=== PATIENT | female | born 1975 | race Two or more races ===

== ENCOUNTER 2017-03-07 13:38 | Emergency (ER) | payer SELFPAY ==
[~2017-03-07] VITALS: Ht 157.5 cm; Wt 104.3 kg
[2017-03-07 14:31] LABS: BASO # 0.1 x10^3/uL (0.0-0.2); BASO % 1 % (0-3); EOS % 2 % (0-3); HEMATOCRIT 39.6 % (36.0-47.0); HEMOGLOBIN 13.4 g/dL (12.0-15.5); LYMPH # 2.3 x10^3/uL (1.0-4.8); LYMPH % 22 % (24-48); MEAN CORPUSCULAR HEMOGLOBIN 29 pg (25-35); MEAN CORPUSCULAR HGB CONC 34 g/dL (31-37); MEAN CORPUSCULAR VOLUME 85 fL (79-100); MONO % 5 % (0-9); NEUT % 70 % (31-73); PLATELET COUNT 241 x10^3/uL (140-400); RED BLOOD COUNT 4.64 x10^6/uL (3.50-5.40); RED CELL DISTRIBUTION WIDTH 14.7 % (11.5-14.5); WHITE BLOOD COUNT 10.5 x10^3/uL (4.0-11.0)
[2017-03-07 14:31] LABS: BILIRUBIN,URINE NEGATIVE (NEG); GLUCOSE,URINE NEGATIVE (NEG); NITRITE,URINE NEGATIVE (NEG); PH,URINE 6.5; PROTEIN,URINE NEGATIVE (NEG-TRACE)
--- NOTE | 2017-03-07 14:38 | ED.ADGEN ---
Past Medical History Past Medical History: No Pertinent History Past Surgical History: Alcohol Use: None Drug Use: None Adult General Chief Complaint Chief Complaint: ABDOMINAL PAIN IN HPI HPI Patient is a 41 year old [id number]-[id number] G4, P3 female with estimated 16 weeks' gestation who presents with right lower quadrant pain and vaginal bleeding for the past 16 weeks. Patient denies dizziness lightheadedness , chest pain and shortness of breath. Denies passage of tissue. Patient's last menstrual period was 11/02/16. Patient has not yet established with OB be service. Patient denies complication of prior pregnancies. [place]ian phone oreman assist with a history of this patient. Review of Systems Review of Systems Review symptoms as prescribed. All other review symptoms are negative. Allergies Allergies Allergies Coded Allergies Type Severity Reaction Last Updated Verified No Known Drug Allergies 02/18/16 No Physical Exam Physical Exam Constitutional: Well developed, well nourished, no acute distress, non-toxic appearance. [] HENT: Normocephalic, atraumatic, bilateral external ears normal, oropharynx moist, no oral exudates, nose normal. [] Eyes: PERRLA, EOMI, conjunctiva normal, no discharge. [] Neck: Normal range of motion, no tenderness, supple, no stridor. [] Cardiovascular:Heart rate regular rhythm, no murmur [] Lungs & Thorax: Bilateral breath sounds clear to auscultation [] Abdomen: Bowel sounds normal, soft, , right lower quadrant pain tenderness, no rebound rigidity or guarding [] : Dark red blood in vaginal vault. No lacerations or lesions present. Small amount of blood and mucus coming from cervical os which is closed. No vaginal discharge appreciated. [] Back: No tenderness, no CVA tenderness. [] Extremities: No tenderness, no cyanosis, no clubbing, ROM intact, no edema. [] Psychologic: Affect normal, judgement normal, mood normal. [] Current Patient Data Vital Signs Vital Signs Date Time Temp Pulse Resp B/P (MAP) Pulse Ox O2 Delivery O2 Flow Rate FiO2 03/07/17 16:20 63 18 124/71 (88) 98 Room Air 03/07/17 13:50 98.3 98.3 Lab Values Laboratory Tests Test 03/07/17 13:48 03/07/17 14:19 Urine Collection Type Void Urine Color Red Urine Clarity Cloudy Urine pH 6.5 Urine Specific [place] 1.015 Urine Protein Negative mg/dL (NEG-TRACE) Urine Glucose (UA) Negative mg/dL (NEG) Urine Ketones (Stick) Negative mg/dL (NEG) Urine Blood Large (NEG) Urine Nitrite Negative (NEG) Urine Bilirubin Negative (NEG) Urine Urobilinogen Dipstick 1.0 mg/dL (0.2 mg/dL) Urine Leukocyte Esterase Trace (NEG) Urine RBC Tntc /HPF (0-2) Urine WBC 5-10 /HPF (0-4) Urine Squamous Epithelial Cells Few /LPF Urine Bacteria Few /HPF (0-FEW) Urine Mucus Mod /LPF White Blood Count 10.5 x10^3/uL (4.0-11.0) Red Blood Count 4.64 x10^6/uL (3.50-5.40) Hemoglobin 13.4 g/dL (12.0-15.5) Hematocrit 39.6 % (36.0-47.0) Mean Corpuscular Volume 85 fL (79-100) Mean Corpuscular Hemoglobin 29 pg (25-35) Mean Corpuscular Hemoglobin Concent 34 g/dL (31-37) Red Cell Distribution Width 14.7 % (11.5-14.5) H Platelet Count 241 x10^3/uL (140-400) Neutrophils (%) (Auto) 70 % (31-73) Lymphocytes (%) (Auto) 22 % (24-48) L Monocytes (%) (Auto) 5 % (0-9) Eosinophils (%) (Auto) 2 % (0-3) Basophils (%) (Auto) 1 % (0-3) Neutrophils # (Auto) 7.3 x10^3uL (1.8-7.7) Lymphocytes # (Auto) 2.3 x10^3/uL (1.0-4.8) Monocytes # (Auto) 0.6 x10^3/uL (0.0-1.1) Eosinophils # (Auto) 0.2 x10^3/uL (0.0-0.7) Basophils # (Auto) 0.1 x10^3/uL (0.0-0.2) Maternal Serum HCG Beta Subunit 6648 mIU/mL (0-5) H Laboratory Tests 03/07/17 14:19 EKG EKG [] Radiology/Procedures Radiology/Procedures [OB ultrasound: 6 week, 2 day intrauterine demise per radiology report] Course & Med Decision Making Course & Med Decision Making Pertinent Labs and Imaging studies reviewed. (See chart for details) [Patient with incomplete inevitable miscarriage. Office is closed with minimal blood in the vault. Patient's vital signs and H&H are stable. Patient's blood type is O+. Discussed with patient the importance of supportive care with close ECHO TECHNICIAN follow-up. Return precautions reviewed. All questions asked and answered through use of phone retail director.] Dragon Disclaimer Dragon Disclaimer This electronic medical record was generated, in whole or in part, using a voice recognition dictation system. BROWN URBINA DO Mar 07, 2017 14:38
[2017-03-07 14:39] LABS: BACTERIA,URINE FEW /HPF (0-FEW); RBC,URINE TNTC /HPF (0-2); SQUAMOUS EPITHELIAL CELL,UR FEW /LPF
--- NOTE | 2017-03-07 15:16 | RAD ---
Indication with vaginal bleeding. An early obstetrical ultrasound examination was performed. Initially transabdominal scans were obtained. These were supplemented with transvaginal scans. No prior imaging is available associated with this . An intrauterine gestational sac is seen. There is a pole. [place]-rump length of 0.56 cm is compatible with a gestational age of approximately 6 weeks 2 days. Despite prolonged observation no cardiac activity was identified. The findings are compatible with demise. The right ovary appears normal. Left ovary was not seen. IMPRESSION: demise
[2017-03-07 16:20] VITALS: BP 124/71
== END 2017-03-07 16:20 | disposition home or self-care (01) ==
LOC: ER 13:38
DX: O03.4 Incomplete spontaneous abortion without complication (principal); Z3A.16 16 weeks gestation of pregnancy
CPT/HCPCS: 36415; 76801; 76817; 81001; 84702; 85027; 87086; 99285-25

== ENCOUNTER 2018-06-20 20:27 | Emergency (ER) | payer SELFPAY ==
[~2018-06-20] VITALS: Ht 152.4 cm; Wt 105.2 kg
[2018-06-20 21:15] VITALS: BP 181/94
--- NOTE | 2018-06-20 22:29 | RAD ---
Indication:Right middle finger caught in rotary surface grinder TECHNIQUE: 3 views of right hand COMPARISON: None FINDINGS/ impression: Mildly displaced transverse Fracture is seen of the tuft of the third finger with soft tissue laceration. No extension to the DIP joint. No radiopaque foreign body. Electronically signed by: Clive Thomas DO (06/20/2018 10:25 PM) [facility]
[2018-06-20] MEDS ORDERED: HYDROcodone/APAP 5/325MG 1 TAB TABLET PO ONE (22:30)
[2018-06-20] MEDS ORDERED: DIPHTH,PERTUSS(ACELL),TET TOX 0.5 ML DISP.SYRIN. VAX IM ONE (22:30)
[2018-06-20] MEDS ORDERED: HYDR-3164 PO (23:18)
[2018-06-20] MEDS ORDERED: CEPH-264 PO (23:18)
--- NOTE | 2018-06-20 23:19 | PHYS DOC ---
Past Medical History Past Medical History: No Pertinent History Past Surgical History: Alcohol Use: None Drug Use: None Adult General Chief Complaint Chief Complaint: FINGER INJURY HPI HPI Patient is a 42 year old female who presents with was using a computer numerical control grinder in her right middle finger got stuck in it at 2000 tonight. Patient states she does need a tetanus shot. She is allergic to ibuprofen. Past medical history is depression and she cannot remember what medication she is taking for her. Review of Systems Review of Systems Constitutional: Denies fever or chills [] Eyes: Denies change in visual acuity, redness, or eye pain [] HENT: Denies nasal congestion or sore throat [] Respiratory: Denies cough or shortness of breath [] Cardiovascular: No additional information not addressed in HPI [] GI: Denies abdominal pain, nausea, vomiting, bloody stools or diarrhea [] : Denies dysuria or hematuria [] Musculoskeletal: Denies back pain or joint pain [] Integument: Denies rash or skin lesions [] Neurologic: Denies headache, focal weakness or sensory changes [] Endocrine: Denies polyuria or polydipsia [] All other systems were reviewed and found to be within normal limits, except as documented in this note. Current Medications Current Medications Current Medications Medications (Trade) Dose Ordered Sig/Wei Start Time Stop Time Status Last Admin Dose Admin Acetaminophen/ Hydrocodone Bitart (Lortab 5/325) 1 tab 1X ONCE 06/20/18 22:30 06/20/18 22:31 DC 06/20/18 22:59 1 TAB Diphtheria/ Tetanus/Acell Pertussis (Boostrix) 0.5 ml ONCE ONCE 06/20/18 22:30 06/20/18 22:31 DC 06/20/18 23:00 0.5 ML Lidocaine/Sodium Bicarbonate (Buffered Lidocaine 1%) 6 ml 1X ONCE 06/20/18 23:45 06/20/18 23:46 DC 06/20/18 23:45 6 ML Allergies Allergies Allergies Coded Allergies Type Severity Reaction Last Updated Verified ibuprofen Allergy Intermediate 06/20/18 Yes Physical Exam Physical Exam Constitutional: Well developed, well nourished, no acute distress, non-toxic appearance. [] HENT: Normocephalic, atraumatic, bilateral external ears normal, oropharynx moist, no oral exudates, nose normal. [] Eyes: PERRLA, EOMI, conjunctiva normal, no discharge. [] Neck: Normal range of motion, no tenderness, supple, no stridor. [] Cardiovascular:Heart rate regular rhythm, no murmur [] Lungs & Thorax: Bilateral breath sounds clear to auscultation [] Abdomen: Bowel sounds normal, soft, no tenderness, no masses, no pulsatile masses. [] Skin: Warm, dry, no erythema, no rash. [] Back: No tenderness, no CVA tenderness. [] Extremities: No tenderness, no cyanosis, no clubbing, ROM intact, no edema. [] Neurologic: Alert and oriented X 3, normal motor function, normal sensory function, no focal deficits noted. [] Psychologic: Affect normal, judgement normal, mood normal. [] Current Patient Data Vital Signs Vital Signs Date Time Temp Pulse Resp B/P (MAP) Pulse Ox O2 Delivery O2 Flow Rate FiO2 06/20/18 21:15 98.3 74 17 181/94 (123) 96 Room Air 98.3 EKG EKG [] Radiology/Procedures Radiology/Procedures [] Impressions: [facility] [address] [place] [address] IMAGING REPORT Signed PATIENT: KELLY RAMOS ACCOUNT: [id number] : 1975 LOCATION: ER AGE: 42 SEX: F EXAM STATUS: REG ER ORD. PHYSICIAN: STAR CANNON APRN REASON: Right middle finger caught in computer numerical control grinder PROCEDURE: HAND RIGHT 3V Indication:Right middle finger caught in computer numerical control grinder TECHNIQUE: 3 views of right hand COMPARISON: None FINDINGS/ impression: Mildly displaced transverse Fracture is seen of the tuft of the third finger with soft tissue laceration. No extension to the DIP joint. No radiopaque foreign body. Electronically signed by: Clive Thomas DO (06/20/2018 10:25 PM) [facility] DICTATED and SIGNED BY: CLIVE THOMAS DO DATE: 06/20/182216 Course & Med Decision Making Course & Med Decision Making Patient is a 42 year old female who presents with was using a computer numerical control grinder in her right middle finger got stuck in it at 2000 tonight. Patient states she does need a tetanus shot. She is allergic to ibuprofen. Past medical history is depression and she cannot remember what medication she is taking for her. Twila fingertip is lacerated from all around the top except for the posterior side of the finger. Half the nail is missing. Patient cannot bend at finger tip. Patient is given a Boostrix shot in the ED. Radial pulses present and strong. The color the finger is normal for ethnicity. Patient still has feeling in the finger of which is pain and she rates it at a 9 out of 10. Patient's x- ray shows impression: Mildly displaced transverse Fracture is seen of the tuft of the third finger with soft tissue laceration. No extension to the DIP joint. No radiopaque foreign body. She will be given Keflex and iodic and I will so of her laceration after cleaning it copiously with Betadine and normal saline. The nail was pushed back down into nail bed. She will need to follow-up with orthopedics as soon as possible. The finger will also be splinted. Laceration Repair by me: Anesthesia: 1% lidocaine locally Location: Left middle finger tip Tendon/Joint/Nerves: No injury Foreign body: None detected after copious irrigation and exploration Technique: 7 Simple Interrupted Sutures Complexity: No subcutaneous sutures/mucosal repair/edge excision Post Closure Length: 3 cm Patient's bleeding was easily controlled in the department and there is no indication of anemia. No evidence of compartment syndrome, neurologic injury, vascular injury, open joint, tendon laceration, or foreign body. Patient is appropriate for outpatient follow up. 48 hour wound check. Scar minimization instructions given. [] Dragon Disclaimer Dragon Disclaimer This electronic medical record was generated, in whole or in part, using a voice recognition dictation system. Departure Departure Impression: Primary Impression: Laceration Additional Impression: Open fracture of tuft of distal phalanx of finger Disposition: HOME, SELF-CARE Condition: STABLE Referrals: UNKNOWN PCP NAME (PCP) JONEL PRO MD Patient Instructions: Laceration Care, Adult Additional Instructions: Follow-up with orthopedics next week. Take medications as ordered. Scripts Cephalexin (KEFLEX) 500 Mg Capsule 500 MG PO QID for 10 Days, #40 CAP Prov: STAR CANNON ALMOND BLANCHER OPERATOR 06/20/18 Hydrocodone/Apap 5-325 (NORCO 5-325 TABLET) 1 Each Tablet 1 TAB PO PRN Q6HRS PRN for PAIN, #15 TAB 0 Refills Prov: STAR CANNON APRN 06/20/18 Problem Qualifiers STAR CANNON APRN Jun 20, 2018 23:19
[2018-06-20] MEDS ORDERED: LIDOCAINE WITH 8.4% SOD BICARB 3 ML DISP.SYRIN. INJ ONE (23:45)
== END 2018-06-21 00:52 | disposition home or self-care (01) ==
LOC: ER 20:27
DX: S62.632B Displaced fracture of distal phalanx of right middle finger, initial encounter for open fracture (principal); F32.9 Major depressive disorder, single episode, unspecified; Z98.890 Other specified postprocedural states; Z88.6 Allergy status to analgesic agent; W22.8XXA Striking against or struck by other objects, initial encounter; Y93.89 Activity, other specified; Y92.89 Other specified places as the place of occurrence of the external cause; Y99.8 Other external cause status
CPT/HCPCS: 12002; 29130; 73130; 90471; 90715; 99283

== ENCOUNTER 2018-06-30 11:52 | Emergency (ER) | payer SELFPAY ==
[~2018-06-30] VITALS: Ht 152.4 cm; Wt 105.2 kg
[~2018-06-30 11:52] MED LIST: CEPH-264 PO; HYDR-3164 PO
[2018-06-30 11:55] VITALS: BP 144/78
--- NOTE | 2018-06-30 12:17 | PHYS DOC ---
Past Medical History Past Medical History: No Pertinent History Past Surgical History: Alcohol Use: None Drug Use: None Adult General Chief Complaint Chief Complaint: SUTURE/STAPLE REMOVAL [facility] HPI Patient is a 42 year old female who presents with patient had a right middle finger laceration repair On June 20, 2018. She is here to get the stitches removed. Patient states that she has very little pain and that there is never been any signs of infection. Patient states she can bend the finger without pain. Review of Systems Review of Systems Constitutional: Denies fever or chills [] Eyes: Denies change in visual acuity, redness, or eye pain [] HENT: Denies nasal congestion or sore throat [] Respiratory: Denies cough or shortness of breath [] Cardiovascular: No additional information not addressed in HPI [] GI: Denies abdominal pain, nausea, vomiting, bloody stools or diarrhea [] : Denies dysuria or hematuria [] Musculoskeletal: Denies back pain or joint pain [] Integument: Right middle finger suture removal. Denies rash or skin lesions [] Neurologic: Denies headache, focal weakness or sensory changes [] Endocrine: Denies polyuria or polydipsia [] All other systems were reviewed and found to be within normal limits, except as documented in this note. Allergies Allergies Allergies Coded Allergies Type Severity Reaction Last Updated Verified ibuprofen Allergy Intermediate 06/20/18 Yes Physical Exam Physical Exam Constitutional: Well developed, well nourished, no acute distress, non-toxic appearance. [] HENT: Normocephalic, atraumatic, bilateral external ears normal, oropharynx moist, no oral exudates, nose normal. [] Eyes: PERRLA, EOMI, conjunctiva normal, no discharge. [] Neck: Normal range of motion, no tenderness, supple, no stridor. [] Cardiovascular:Heart rate regular rhythm, no murmur [] Lungs & Thorax: Bilateral breath sounds clear to auscultation [] Abdomen: Bowel sounds normal, soft, no tenderness, no masses, no pulsatile masses. [] Skin:Right middle finger 7 suture removal. Warm, dry, no erythema, no rash. [] Back: No tenderness, no CVA tenderness. [] Extremities: No tenderness, no cyanosis, no clubbing, ROM intact, no edema. [] Neurologic: Alert and oriented X 3, normal motor function, normal sensory function, no focal deficits noted. [] Psychologic: Affect normal, judgement normal, mood normal. [] EKG EKG [] Radiology/Procedures Radiology/Procedures [] Course & Med Decision Making Course & Med Decision Making Patient is a 42 year old female who presents with patient had a right middle finger laceration repair June 20, 2018. She is here to get the stitches removed. Patient states that she has very little pain and that there is never been any signs of infection. Patient states she can bend the finger without pain. Finger is not swollen, reddened, has no drainage. 7 Stitches are removed and wound is well-healed and edges are approximated and healed together. I did tell patient that she may still lose her nail because the nailbed was damaged. patient to continue using ibuprofen for pain. She is stable and in no distress. [] Dragon Disclaimer Dragon Disclaimer This electronic medical record was generated, in whole or in part, using a voice recognition dictation system. Departure Departure Impression: Primary Impression: Visit for suture removal Disposition: HOME, SELF-CARE Condition: STABLE Referrals: UNKNOWN PCP NAME (PCP) Patient Instructions: Suture Removal Additional Instructions: Follow up with your primary care if you need too. Use ibuprofen for any pain or discomfort. STAR CANNON APRN Jun 30, 2018 12:17
== END 2018-06-30 12:42 | disposition home or self-care (01) ==
LOC: ER 11:52
DX: S61.212D Laceration without foreign body of right middle finger without damage to nail, subsequent encounter (principal); Z98.890 Other specified postprocedural states; Z88.6 Allergy status to analgesic agent; X58.XXXD Exposure to other specified factors, subsequent encounter
CPT/HCPCS: 99281

== ENCOUNTER 2020-01-21 16:15 | Inpatient (IN) | payer OTHER ==
[~2020-01-21] VITALS: Ht 154.9 cm; Wt 98.6 kg
[2020-01-21 16:30] LABS: BASE EXCESS ABG 5 mmol/L (-3-3); HCO3 ABG 28 mmol/L (21-28); PCO2 ABG 37 mmHg (35-46); PO2 ABG 68 mmHg (75-108); SAT O2 ABG 93 % (92-99)
[2020-01-21 16:32] LABS: FIO2 ABG 100% NRB
[2020-01-21] MEDS ORDERED: ACETAMINOPHEN 500 MG TABLET PO ONE (17:00)
[2020-01-21 17:09] LABS: BASO % 0 % (0-3); EOS % 0 % (0-3); HEMOGLOBIN 11.6 g/dL (12.0-15.5); LYMPH # 0.9 x10^3/uL (1.0-4.8); LYMPH % 10 % (24-48); MEAN CORPUSCULAR HEMOGLOBIN 28 pg (25-35); MEAN CORPUSCULAR HGB CONC 34 g/dL (31-37); MEAN CORPUSCULAR VOLUME 82 fL (79-100); MONO # 0.5 x10^3/uL (0.0-1.1); MONO % 6 % (0-9); NEUT # 7.1 x10^3/uL (1.8-7.7); NEUT % 84 % (31-73); PLATELET COUNT 378 x10^3/uL (140-400); RED BLOOD COUNT 4.15 x10^6/uL (3.50-5.40); RED CELL DISTRIBUTION WIDTH 15.2 % (11.5-14.5); WHITE BLOOD COUNT 8.5 x10^3/uL (4.0-11.0)
[2020-01-21 17:17] LABS: CALCIUM 7.8 mg/dL (8.5-10.1); CREATININE 0.7 mg/dL (0.6-1.0); GFR 90.9; POTASSIUM 3.8 mmol/L (3.5-5.1)
[2020-01-21 17:32] LABS: ALBUMIN 2.5 g/dL (3.4-5.0); ALBUMIN/GLOBULIN RATIO 0.5 (1.0-1.7); TOTAL BILIRUBIN 0.4 mg/dL (0.2-1.0); TOTAL PROTEIN 7.1 g/dL (6.4-8.2)
--- NOTE | 2020-01-21 17:33 | RAD ---
CHEST AP ONLY 01/21/2020 4:46 PM INDICATION: Cough COMPARISON: None available TECHNIQUE: Portable frontal view of the chest is provided. FINDINGS: The cardiomediastinal silhouette is within normal limits. Moderate to advanced perihilar mixed interstitial and alveolar airspace disease. Small bilateral pleural effusions adjacent compressive atelectasis. No pneumothorax. No suspicious osseous abnormality. IMPRESSION: Moderate to advanced perihilar mixed interstitial and alveolar airspace disease may be associated with pulmonary edema/hemorrhage versus multifocal pulmonary infiltrates. Recommend follow-up to resolution. Electronically signed by: Thu Cabello MD (01/21/2020 5:31 PM) [facility]
--- NOTE | 2020-01-21 17:48 | PHYS DOC ---
Past Medical History Past Medical History: Hypertension Additional Past Medical Histor: COVID Past Surgical History: Smoking Status: Never Smoker Alcohol Use: None Drug Use: None General Adult EDM: Chief Complaint: SHORTNESS OF BREATH HPI: HPI: Patient is a 44-year-old morbidly obese female with no other obvious underlying medical conditions was recently diagnosed with COVID. She states that she has become progressively more short of breath since the time of diagnosis. She denies any hemoptysis. She does report fever. She states she does have some pain when she coughs. She has been coughing up sputum. She has other people in her house that are positive for COVID. She called EMS today because she was much more short of breath and on EMS arrival they report that her oxygen saturation was in the 60s. This responded to a nonrebreather in route to the mid s. [] Review of Systems: Review of Systems: Constitutional: Denies fever or chills. [] Eyes: Denies change in visual acuity. [] HENT: Denies nasal congestion or sore throat. [] Respiratory: Per HPI [] Cardiovascular: Denies chest pain or edema. [] GI: Denies abdominal pain, nausea, vomiting, bloody stools or diarrhea. [] : Denies dysuria. [] Musculoskeletal: Denies back pain or joint pain. [] Integument: Denies rash. [] Neurologic: Denies headache, focal weakness or sensory changes. [] Endocrine: Denies polyuria or polydipsia. [] Lymphatic: Denies swollen glands. [] Psychiatric: Denies depression or anxiety. [] Heart Score: Risk Factors: Risk Factors: DM, Current or recent (<one month) smoker, HTN, HLP, family history of CAD, obesity. Risk Scores: Score 0 - 3: 2.5% MACE over next 6 weeks - Discharge Home Score 4 - 6: 20.3% MACE over next 6 weeks - Admit for Clinical Observation Score 7 - 10: 72.7% MACE over next 6 weeks - Early Invasive Strategies Current Medications: Current Medications Medications (Trade) Dose Ordered Sig/Wei Start Time Stop Time Status Last Admin Dose Admin Acetaminophen (Tylenol) 1,000 mg 1X ONCE 01/21/20 17:00 01/21/20 17:01 DC 01/21/20 17:00 1,000 MG Allergies: Allergies: Allergies Coded Allergies Type Severity Reaction Last Updated Verified ibuprofen Allergy Intermediate 06/20/18 Yes Physical Exam: PE: Constitutional: Well developed, well nourished, moderate respiratory distress, resting quietly with a nonrebreather in place. [] HENT: Normocephalic, atraumatic, bilateral external ears normal, oropharynx moist, no oral exudates, nose normal. [] Eyes: PERRLA, EOMI, conjunctiva normal, no discharge. [] Neck: Normal range of motion, no tenderness, supple, no stridor. [] Cardiovascular: Tachycardic [] Lungs & Thorax: Coarse rales bilaterally no wheezes, tachypneic [] Abdomen: Bowel sounds normal, soft, no tenderness, no masses, no pulsatile masses. [] Skin: Warm, dry, no erythema, no rash. [] Back: No tenderness, no CVA tenderness. [] Extremities: No tenderness, no cyanosis, no clubbing, ROM intact, no edema. [] Neurologic: Alert and oriented X 3, normal motor function, normal sensory function, no focal deficits noted. [] Psychologic: A anxious [] Current Patient Data: Labs: Laboratory Tests Test 01/21/20 16:27 01/21/20 16:36 O2 Saturation 93 % (92-99) Arterial Blood pH 7.50 (7.35-7.45) H Arterial Blood pCO2 at Patient Temp 37 mmHg (35-46) Arterial Blood pO2 at Patient Temp 68 mmHg (75-108) L Arterial Blood HCO3 28 mmol/L (21-28) Arterial Blood Base Excess 5 mmol/L (-3-3) H FiO2 100% nrb White Blood Count 8.5 x10^3/uL (4.0-11.0) Red Blood Count 4.15 x10^6/uL (3.50-5.40) Hemoglobin 11.6 g/dL (12.0-15.5) L Hematocrit 34.0 % (36.0-47.0) L Mean Corpuscular Volume 82 fL (79-100) Mean Corpuscular Hemoglobin 28 pg (25-35) Mean Corpuscular Hemoglobin Concent 34 g/dL (31-37) Red Cell Distribution Width 15.2 % (11.5-14.5) H Platelet Count 378 x10^3/uL (140-400) Neutrophils (%) (Auto) 84 % (31-73) H Lymphocytes (%) (Auto) 10 % (24-48) L Monocytes (%) (Auto) 6 % (0-9) Eosinophils (%) (Auto) 0 % (0-3) Basophils (%) (Auto) 0 % (0-3) Neutrophils # (Auto) 7.1 x10^3/uL (1.8-7.7) Lymphocytes # (Auto) 0.9 x10^3/uL (1.0-4.8) L Monocytes # (Auto) 0.5 x10^3/uL (0.0-1.1) Eosinophils # (Auto) 0.0 x10^3/uL (0.0-0.7) Basophils # (Auto) 0.0 x10^3/uL (0.0-0.2) Sodium Level 135 mmol/L (136-145) L Potassium Level 3.8 mmol/L (3.5-5.1) Chloride Level 98 mmol/L (98-107) Carbon Dioxide Level 29 mmol/L (21-32) Anion Gap 8 (6-14) Blood Urea Nitrogen 9 mg/dL (7-20) Creatinine 0.7 mg/dL (0.6-1.0) Estimated GFR (Cockcroft-Gault) 90.9 BUN/Creatinine Ratio 13 (6-20) Glucose Level 96 mg/dL (70-99) Calcium Level 7.8 mg/dL (8.5-10.1) L Total Bilirubin 0.4 mg/dL (0.2-1.0) Aspartate Amino Transferase (AST) 42 U/L (15-37) H Alanine Aminotransferase (ALT) 20 U/L (14-59) Alkaline Phosphatase 76 U/L (46-116) Total Protein 7.1 g/dL (6.4-8.2) Albumin 2.5 g/dL (3.4-5.0) L Albumin/Globulin Ratio 0.5 (1.0-1.7) L Laboratory Tests 01/21/20 16:36 Laboratory Tests 01/21/20 16:36 Vital Signs: Vital Signs Date Time Temp Pulse Resp B/P (MAP) Pulse Ox O2 Delivery O2 Flow Rate FiO2 01/21/20 16:20 100.2 85 28 124/66 (85) 96 NonRebreather Mask 100.2 EKG: EKG: [EKG: Normal sinus rhythm rate of [address]-T changes] Radiology/Procedures: Radiology/Procedures: [] Impression: PROCEDURE: CHEST AP ONLY CHEST AP ONLY 01/21/2020 4:46 PM INDICATION: Cough COMPARISON: None available TECHNIQUE: Portable frontal view of the chest is provided. FINDINGS: The cardiomediastinal silhouette is within normal limits. Moderate to advanced perihilar mixed interstitial and alveolar airspace disease. Small bilateral pleural effusions adjacent compressive atelectasis. No pneumothorax. No suspicious osseous abnormality. IMPRESSION: Moderate to advanced perihilar mixed interstitial and alveolar airspace disease may be associated with pulmonary edema/hemorrhage versus multifocal pulmonary infiltrates. Recommend follow-up to resolution. Course & Med Decision Making: Course & Med Decision Making Pertinent Labs and Imaging studies reviewed. (See chart for details) [ED course: Evaluation reveals a known COVID +44-year-old obese female who is hypoxic and coughing. She is responded well to high flow oxygen in the emergency department. She will need to be closely monitored in the hospital for resolution of her symptoms.] Dragon Disclaimer: Dragon Disclaimer: This electronic medical record was generated, in whole or in part, using a voice recognition dictation system. Departure Departure Impression: Primary Impression: Pneumonia due to COVID-19 virus Disposition: ADMITTED INPATIENT Admitting Physician: BERNABE Condition: GUARDED Referrals: NO PCP (PCP) Justicifation of Admission Dx: Justifications for Admission: Justification of Admission Dx: Yes Respiratory Failure: Severe Resp Distress STAR RAUSCH DO Jan 21, 2020 17:48
[2020-01-21] MEDS ORDERED: ONDANSETRON PF 4 MG/2 ML VIAL. IV PRN (18:00)
[2020-01-21] MEDS ORDERED: cefTRIAXone IV Push 1 GM VIAL. IVP ONE (18:00)
[2020-01-21] MEDS ORDERED: DEXAMETHASONE SOD PHOS 4 MG/ML VIAL IVP ONE (18:00)
[2020-01-21] MEDS: AZITHROMYCIN 500 MG in IV NORMAL SALINE 250ML 250 ML IV SCH (18:15)
[2020-01-21] MEDS ORDERED: AZITHRMYCN 500MG IVPB FOR OMNI 250 ML IV ONE ×2 (18:15→19:45)
[2020-01-21] MEDS ORDERED: 0.9 % SODIUM CHLORIDE 10 ML DISP.SYRIN. IV PRN (19:45)
[2020-01-21] MEDS ORDERED: MAGNESIUM HYDROXIDE 2,400 MG/30 ML ORAL.SUSP. PO PRN (19:45)
[2020-01-21] MEDS ORDERED: MAG HYDROX/ALUMINUM HYD/SIMETH 30 ML ORAL.SUSP PO PRN (19:45)
[2020-01-21] MEDS ORDERED: ONDANSETRON PF 4 MG/2 ML VIAL. IVP PRN (19:45)
[2020-01-21] MEDS ORDERED: ENOXAPARIN 40 MG/0.4 ML SYRINGE. SQ SCH (20:00)
[2020-01-21 20:34] LABS: C-REACTIVE PROTEIN 101.3 mg/L (0-3.3)
--- NOTE | 2020-01-21 20:53 | PDOC1 ---
History and Physical Date of Admission Date of Admission DATE: 01/21/20 TIME: 20:41 Identification/Chief Complaint Chief Complaint sob, cough, fever Problems: (1) Respiratory failure (2) COVID-19 Source Source: Chart review, Patient History of Present Illness History of Present Illness 44-year-old speaking female with PMHx of obesity, HTN who presents with 10 days of cough sob and fever. Tested for covid at outside facility and + along with her two kids, 8 and 3. She became progressively more SOB over the past several days. She called EMS bc of her difficulty breathing. EMS arrived and found her saturations to be 60%. she was placed on a non-rebreather and sent to [facility]. Patient feels better on non-rebreather. speaking full sentences. denies chest pain. still sob. has no other complaints. in the ED patient's chest xray shows: Moderate to advanced perihilar mixed interstitial and alveolar airspace disease may be associated with pulmonary edema/hemorrhage versus multifocal pulmonary infiltrates. Recommend follow-up to resolution. Hospitalist called for admission Past Medical History Past Medical History HTN, obesity Past Surgical History Past Surgical History denies Family History Family History reviewed and denies Social History Smoke: No ALCOHOL: none Drugs: None Current Problem List Problem List Problems Medical Problems: (1) Pneumonia due to COVID-19 virus Status: Acute Current Medications Current Medications Current Medications Acetaminophen (Tylenol) 1,000 mg 1X ONCE PO Last administered on 01/21/20at 17:00; Start 01/21/20 at 17:00; Stop 01/21/20 at 17:01; Status DC Ondansetron HCl (Zofran) 4 mg PRN Q8HRS PRN IV NAUSEA/VOMITING; Start 01/21/20 at 18:00; Stop 01/22/20 at 17:59 Dexamethasone Sodium Phosphate (Decadron) 6 mg 1X ONCE IVP Last administered on 01/21/20at 18:14; Start 01/21/20 at 18:00; Stop 01/21/20 at 18:01; Status DC Ceftriaxone Sodium (Rocephin) 1 gm 1X ONCE IVP Last administered on 01/21/20at 18:14; Start 01/21/20 at 18:00; Stop 01/21/20 at 18:01; Status DC Azithromycin 500 mg/Sodium Chloride 250 ml @ 250 mls/hr Q24H IV ; Start 01/22/20 at 19:00 Azithromycin 250 ml @ 250 mls/hr 1X ONCE IV Last administered on 01/21/20at 18:25; Start 01/21/20 at 18:15; Stop 01/21/20 at 19:14; Status DC Dexamethasone Sodium Phosphate (Decadron) 6 mg DAILY IVP ; Start 01/22/20 at 09:00 Ceftriaxone Sodium (Rocephin) 1 gm Q24H IVP ; Start 01/22/20 at 20:00 Azithromycin 250 ml @ 250 mls/hr 1X ONCE IV ; Start 01/21/20 at 19:45; Stop 01/21/20 at 20:44; Status UNV Acetaminophen (Tylenol) 650 mg PRN Q6HRS PRN PO Headaches, Temp > 101.5'; Start 01/21/20 at 19:45 Ondansetron HCl (Zofran) 4 mg PRN Q6HRS PRN IVP NAUSEA/VOMITING; Start 01/21/20 at 19:45 Al Hydroxide/Mg Hydroxide (Mylanta Plus Xs) 30 ml PRN Q3HRS PRN PO HEARTBURN / GAS; Start 01/21/20 at 19:45 Famotidine (Pepcid) 20 mg BID PO ; Start 01/21/20 at 21:00 Enoxaparin Sodium (Lovenox 40mg Syringe) 40 mg Q24H SQ ; Start 01/21/20 at 20:00 Sodium Chloride (Normal Saline Flush) 3 ml QSHIFT PRN IV AFTER MEDS AND BLOOD DRAWS; Start 01/21/20 at 19:45 Senna/Docusate Sodium (Senna Plus) 1 tab BID PO ; Start 01/21/20 at 21:00 Magnesium Hydroxide (Milk Of Magnesia) 2,400 mg PRN Q12HR PRN PO CONSTIPATION; Start 01/21/20 at 19:45 Active Scripts Active Keflex (Cephalexin) 500 Mg Capsule 500 Mg PO QID 10 Days [place] 5-325 Tablet (Acetaminophen/Hydrocodone Bitart) 1 Each Tablet 1 Tab PO PRN Q6HRS PRN Allergies Allergies: Coded Allergies: ibuprofen (Verified Allergy, Intermediate, 06/20/18) ROS Review of System CONSTITUTIONAL: No fever or chills EYES: No recent changes SKIN: No rash or itching CARDIOVASCULAR: No chest pain, syncope, palpitations, or edema RESPIRATORY: No SOB or cough GASTROINTESTINAL: No nausea, vomiting or abdominal pain NEUROLOGICAL: No headaches or weakness ENDOCRINE: No cold or heat intolerance GENITOURINARY: No urgency or frequency of urination MUSCULOSKELETAL: No back pain or joint pain LYMPHATICS: No enlarged lymph nodes PSYCHIATRIC: No anxiety or depression Physical Exam Physical Exam GENERAL: No apparent distress. Alert and oriented. HEENT: Head normocephalic, atraumatic. NECK: Supple LUNGS: Clear to auscultation. HEART: RRR, S1, S2 present, pulses intact ABDOMEN: Soft, positive bowel sounds. EXTREMITIES: No cyanosis or edema. NEUROLOGIC: Normal speech, normal tone PSYCHIATRIC: Normal affect, normal mood. SKIN: No ulceration. Vitals Vitals Vital Signs Date Time Temp Pulse Resp B/P (MAP) Pulse Ox O2 Delivery O2 Flow Rate FiO2 01/21/20 18:48 95 NonRebreather Mask 15.0 01/21/20 18:20 84 123/57 (79) 01/21/20 16:20 100.2 28 100.2 Labs Labs Laboratory Tests Test 01/21/20 16:27 01/21/20 16:36 O2 Saturation 93 % (92-99) Arterial Blood pH 7.50 (7.35-7.45) Arterial Blood pCO2 at Patient Temp 37 mmHg (35-46) Arterial Blood pO2 at Patient Temp 68 mmHg (75-108) Arterial Blood HCO3 28 mmol/L (21-28) Arterial Blood Base Excess 5 mmol/L (-3-3) FiO2 100% nrb White Blood Count 8.5 x10^3/uL (4.0-11.0) Red Blood Count 4.15 x10^6/uL (3.50-5.40) Hemoglobin 11.6 g/dL (12.0-15.5) Hematocrit 34.0 % (36.0-47.0) Mean Corpuscular Volume 82 fL (79-100) Mean Corpuscular Hemoglobin 28 pg (25-35) Mean Corpuscular Hemoglobin Concent 34 g/dL (31-37) Red Cell Distribution Width 15.2 % (11.5-14.5) Platelet Count 378 x10^3/uL (140-400) Neutrophils (%) (Auto) 84 % (31-73) Lymphocytes (%) (Auto) 10 % (24-48) Monocytes (%) (Auto) 6 % (0-9) Eosinophils (%) (Auto) 0 % (0-3) Basophils (%) (Auto) 0 % (0-3) Neutrophils # (Auto) 7.1 x10^3/uL (1.8-7.7) Lymphocytes # (Auto) 0.9 x10^3/uL (1.0-4.8) Monocytes # (Auto) 0.5 x10^3/uL (0.0-1.1) Eosinophils # (Auto) 0.0 x10^3/uL (0.0-0.7) Basophils # (Auto) 0.0 x10^3/uL (0.0-0.2) D-Dimer (Shirley) 2.09 ug/mlFEU (0.00-0.50) Sodium Level 135 mmol/L (136-145) Potassium Level 3.8 mmol/L (3.5-5.1) Chloride Level 98 mmol/L (98-107) Carbon Dioxide Level 29 mmol/L (21-32) Anion Gap 8 (6-14) Blood Urea Nitrogen 9 mg/dL (7-20) Creatinine 0.7 mg/dL (0.6-1.0) Estimated GFR (Cockcroft-Gault) 90.9 BUN/Creatinine Ratio 13 (6-20) Glucose Level 96 mg/dL (70-99) Calcium Level 7.8 mg/dL (8.5-10.1) Total Bilirubin 0.4 mg/dL (0.2-1.0) Aspartate Amino Transf (AST/SGOT) 42 U/L (15-37) Alanine Aminotransferase (ALT/SGPT) 20 U/L (14-59) Alkaline Phosphatase 76 U/L (46-116) Total Protein 7.1 g/dL (6.4-8.2) Albumin 2.5 g/dL (3.4-5.0) Albumin/Globulin Ratio 0.5 (1.0-1.7) Laboratory Tests Test 01/21/20 16:27 01/21/20 16:36 O2 Saturation 93 % (92-99) Arterial Blood pH 7.50 (7.35-7.45) Arterial Blood pCO2 at Patient Temp 37 mmHg (35-46) Arterial Blood pO2 at Patient Temp 68 mmHg (75-108) Arterial Blood HCO3 28 mmol/L (21-28) Arterial Blood Base Excess 5 mmol/L (-3-3) FiO2 100% nrb White Blood Count 8.5 x10^3/uL (4.0-11.0) Red Blood Count 4.15 x10^6/uL (3.50-5.40) Hemoglobin 11.6 g/dL (12.0-15.5) Hematocrit 34.0 % (36.0-47.0) Mean Corpuscular Volume 82 fL (79-100) Mean Corpuscular Hemoglobin 28 pg (25-35) Mean Corpuscular Hemoglobin Concent 34 g/dL (31-37) Red Cell Distribution Width 15.2 % (11.5-14.5) Platelet Count 378 x10^3/uL (140-400) Neutrophils (%) (Auto) 84 % (31-73) Lymphocytes (%) (Auto) 10 % (24-48) Monocytes (%) (Auto) 6 % (0-9) Eosinophils (%) (Auto) 0 % (0-3) Basophils (%) (Auto) 0 % (0-3) Neutrophils # (Auto) 7.1 x10^3/uL (1.8-7.7) Lymphocytes # (Auto) 0.9 x10^3/uL (1.0-4.8) Monocytes # (Auto) 0.5 x10^3/uL (0.0-1.1) Eosinophils # (Auto) 0.0 x10^3/uL (0.0-0.7) Basophils # (Auto) 0.0 x10^3/uL (0.0-0.2) D-Dimer (Shirley) 2.09 ug/mlFEU (0.00-0.50) Sodium Level 135 mmol/L (136-145) Potassium Level 3.8 mmol/L (3.5-5.1) Chloride Level 98 mmol/L (98-107) Carbon Dioxide Level 29 mmol/L (21-32) Anion Gap 8 (6-14) Blood Urea Nitrogen 9 mg/dL (7-20) Creatinine 0.7 mg/dL (0.6-1.0) Estimated GFR (Cockcroft-Gault) 90.9 BUN/Creatinine Ratio 13 (6-20) Glucose Level 96 mg/dL (70-99) Calcium Level 7.8 mg/dL (8.5-10.1) Total Bilirubin 0.4 mg/dL (0.2-1.0) Aspartate Amino Transf (AST/SGOT) 42 U/L (15-37) Alanine Aminotransferase (ALT/SGPT) 20 U/L (14-59) Alkaline Phosphatase 76 U/L (46-116) Total Protein 7.1 g/dL (6.4-8.2) Albumin 2.5 g/dL (3.4-5.0) Albumin/Globulin Ratio 0.5 (1.0-1.7) VTE Prophylaxis Ordered VTE Prophylaxis Devices: Yes VTE Pharmacological Prophylaxi: Yes Assessment/Plan Assessment/Plan ASSESSMENT Acute Hypoxic Respiratory Failure Secondary to COVID-PNA Morbid Obesity HTN PLAN - admit to ICU given hypoxic resp failure on non-rebreather - check inflammatory markers: ESR, CRP, ferratin, LDH, d dimer - start dexamethasone 6 mg IV daily - continue azithro and Rocephin - ID consult for plasma and remdesevir considerations - pulm consult given hypoxia - dvt ppx: lovenox - GI ppx: pepcid FULL CODE monitor in ICU given hypoxia LOS greater than 2 midnights given resp failure, COVID PNA Justicifation of Admission Dx: Justifications for Admission: Justification of Admission Dx: Yes Respiratory Failure: Severe Resp Distress THOR BACK MD Jan 21, 2020 20:53
[2020-01-21 21:30] VITALS: BP 124/59
[2020-01-21 22:00] VITALS: BP 131/61
[2020-01-21] MEDS: SENNOSIDES/DOCUSATE 8.6/50MG TABLET. PO SCH (22:49)
[2020-01-21] MEDS: FAMOTIDINE 20 MG TABLET. PO SCH (22:50)
[2020-01-21 23:00] VITALS: BP 121/52
[2020-01-22] VITALS (25 sets, daily range): BP systolic 104–129; BP diastolic 45–78
--- NOTE | 2020-01-22 01:53 | NUR ---
Pt transported from ED to ICU room 115 @ 2110 on COVID isolation precautions. Pt on 15L NRB and tolerating well with sats in 90-94% with it on and 88% on RA. Pt is able to ambulate with steady gait to and from bedside commode. Assessment as charted. Pt is primary yoruba speaker with minimal south african. Property Management Assistant phone in room if needed for translation. 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 She is given the pt welcome folder. Inpatient admission started and mostly completed. Pt is poor historian. She is call light appropriate. Continue with plan of care Addendum: 01/22/20 at 0430 by JAD GREENFIELD RN around 0405 pt's 02 sats dropped to low 80s despite being on 15 NRB. RN enters room and finding patient gasping for air and hyperventilating. After some coaching to take deep breaths and holding the mask directly on her face, her sats returned to 90-93s. RT paged and pt placed on High Flow Vapotherm @ 20Ls at 100% Addendum: 01/22/20 [address] GREEN RN RT needed to turn Vapotherm to 30L at 100% Addendum: 01/22/20 at 0639 by JAD GREENFIELD RN despite vapotherm turned up to 40L/100%, pt increased work of breathing. Stat ABG order placed. pt sating in 90-91% currently
[2020-01-22] MEDS: STERILE WATER for RESP 1,000 ML BAG. INH PRN ×2 (04:28→11:33)
--- NOTE | 2020-01-22 05:24 | EKG ---
[facility] [address] [place] [address] Test Date: 2020-01-21 Test Time: 16:23:56 Pat Name: KELLY RAMOSDepartment: Room: 115 Gender: F Head Of Conservation: : 1975 Requested By: STAR RAUSCH Order Number: [id number] Reading MD: Familia Ludwig Measurements Intervals [place] Rate: 80 P: NE: QRS: 10 QRSD: 84 T: 6 QT: 350 QTc: 407 Interpretive Statements SINUS RHYTHM NON SPECIFIC ST-T WAVE CHANGES Electronically Signed On 02-17-2020 10:31:58 CDT by Familia Ludwig
--- NOTE | 2020-01-22 08:49 | PDOC ---
Infectious Disease Note Vital Sign Vital Signs Vital Signs Date Time Temp Pulse Resp B/P (MAP) Pulse Ox O2 Delivery O2 Flow Rate FiO2 01/22/20 06:00 61 31 118/66 (83) 94 NonRebreather Mask 30.0 01/22/20 04:00 96.3 96.3 Labs Lab Laboratory Tests Test 01/21/20 16:27 01/21/20 16:36 O2 Saturation 93 % (92-99) Arterial Blood pH 7.50 (7.35-7.45) Arterial Blood pCO2 at Patient Temp 37 mmHg (35-46) Arterial Blood pO2 at Patient Temp 68 mmHg (75-108) Arterial Blood HCO3 28 mmol/L (21-28) Arterial Blood Base Excess 5 mmol/L (-3-3) FiO2 100% nrb White Blood Count 8.5 x10^3/uL (4.0-11.0) Red Blood Count 4.15 x10^6/uL (3.50-5.40) Hemoglobin 11.6 g/dL (12.0-15.5) Hematocrit 34.0 % (36.0-47.0) Mean Corpuscular Volume 82 fL (79-100) Mean Corpuscular Hemoglobin 28 pg (25-35) Mean Corpuscular Hemoglobin Concent 34 g/dL (31-37) Red Cell Distribution Width 15.2 % (11.5-14.5) Platelet Count 378 x10^3/uL (140-400) Neutrophils (%) (Auto) 84 % (31-73) Lymphocytes (%) (Auto) 10 % (24-48) Monocytes (%) (Auto) 6 % (0-9) Eosinophils (%) (Auto) 0 % (0-3) Basophils (%) (Auto) 0 % (0-3) Neutrophils # (Auto) 7.1 x10^3/uL (1.8-7.7) Lymphocytes # (Auto) 0.9 x10^3/uL (1.0-4.8) Monocytes # (Auto) 0.5 x10^3/uL (0.0-1.1) Eosinophils # (Auto) 0.0 x10^3/uL (0.0-0.7) Basophils # (Auto) 0.0 x10^3/uL (0.0-0.2) D-Dimer (Shirley) 2.09 ug/mlFEU (0.00-0.50) Sodium Level 135 mmol/L (136-145) Potassium Level 3.8 mmol/L (3.5-5.1) Chloride Level 98 mmol/L (98-107) Carbon Dioxide Level 29 mmol/L (21-32) Anion Gap 8 (6-14) Blood Urea Nitrogen 9 mg/dL (7-20) Creatinine 0.7 mg/dL (0.6-1.0) Estimated GFR (Cockcroft-Gault) 90.9 BUN/Creatinine Ratio 13 (6-20) Glucose Level 96 mg/dL (70-99) Calcium Level 7.8 mg/dL (8.5-10.1) Ferritin 246 ng/mL (8-252) Total Bilirubin 0.4 mg/dL (0.2-1.0) Aspartate Amino Transf (AST/SGOT) 42 U/L (15-37) Alanine Aminotransferase (ALT/SGPT) 20 U/L (14-59) Alkaline Phosphatase 76 U/L (46-116) Lactate Dehydrogenase 626 U/L (81-234) C-Reactive Protein, Quantitative 101.3 mg/L (0-3.3) Total Protein 7.1 g/dL (6.4-8.2) Albumin 2.5 g/dL (3.4-5.0) Albumin/Globulin Ratio 0.5 (1.0-1.7) Objective Assessment pt seen, consult dictated Plan Plan of Care / BEKAH ALVA MD Jan 22, 2020 08:49
[2020-01-22] MEDS: DEXAMETHASONE SOD PHOS 4 MG/ML VIAL IVP SCH (09:41)
[2020-01-22] MEDS: SENNOSIDES/DOCUSATE 8.6/50MG TABLET. PO SCH ×2 (09:41→21:31)
[2020-01-22] MEDS: LACTOBACILLUS RHAMNOSUS GG 1 CAPSULE. PO SCH ×2 (09:41→21:31)
[2020-01-22] MEDS: FAMOTIDINE 20 MG TABLET. PO SCH ×2 (09:41→21:31)
--- NOTE | 2020-01-22 09:52 | PDOC ---
PROGRESS NOTES History of Present Illness History of Present Illness VTE Prophylaxis Ordered VTE Prophylaxis Devices: Yes VTE Pharmacological Prophylaxi: Yes Assessment/Plan Assessment/Plan ASSESSMENT Acute Hypoxic Respiratory Failure Secondary to COVID-PNA Morbid Obesity HTN NORMOCYTIC ANEMIA PLAN - CONT ICU given hypoxic resp failure on non-rebreather - check inflammatory markers: ESR, INC CRP, ferratin, LDH, d dimer - start dexamethasone 6 mg IV daily - continue azithro and Rocephin - ID consult for plasma and remdesevir considerations - pulm consult given hypoxia - dvt ppx: lovenox 40 MG BID - GI ppx: pepcid FULL CODE monitor in ICU given hypoxia she does not want plasma.PROTOCOL LOS greater than 2 midnights given resp failure, COVID PNA 34 MIN CC TIME Justicifation of Admission Dx: Justicifation of Admission Dx: Justifications for Admission: Justification of Admission Dx: Yes Respiratory Failure: Severe Resp Distress Vitals Vitals Vital Signs Date Time Temp Pulse Resp B/P (MAP) Pulse Ox O2 Delivery O2 Flow Rate FiO2 01/22/20 06:00 61 31 118/66 (83) 94 NonRebreather Mask 30.0 01/22/20 04:00 96.3 96.3 Physical Exam Physical Exam GENERAL: No apparent distress. Alert and oriented. HEENT: Head normocephalic, atraumatic. NECK: Supple LUNGS: Clear to auscultation. HEART: RRR, S1, S2 present, pulses intact ABDOMEN: Soft, positive bowel sounds. EXTREMITIES: No cyanosis or edema. NEUROLOGIC: Normal speech, normal tone PSYCHIATRIC: Normal affect, normal mood. SKIN: No ulceration. General: Oriented X3, Cooperative, mild distress Extremities: No clubbing, No cyanosis Labs LABS CHEST AP ONLY 01/21/2020 4:46 PM INDICATION: Cough COMPARISON: None available TECHNIQUE: Portable frontal view of the chest is provided. FINDINGS: The cardiomediastinal silhouette is within normal limits. Moderate to advanced perihilar mixed interstitial and alveolar airspace disease. Small bilateral pleural effusions adjacent compressive atelectasis. No pneumothorax. No suspicious osseous abnormality. IMPRESSION: Moderate to advanced perihilar mixed interstitial and alveolar airspace disease may be associated with pulmonary edema/hemorrhage versus multifocal pulmonary infiltrates. Recommend follow-up to resolution. Electronically signed by: Lm Cabello MD (01/21/2020 5:31 PM) [facility] DICTATED and SIGNED BY: LM CABELLO MD DATE: 01/21/20 0957 Laboratory Tests Test 01/21/20 16:27 01/21/20 16:36 O2 Saturation 93 % (92-99) Arterial Blood pH 7.50 (7.35-7.45) Arterial Blood pCO2 at Patient Temp 37 mmHg (35-46) Arterial Blood pO2 at Patient Temp 68 mmHg (75-108) Arterial Blood HCO3 28 mmol/L (21-28) Arterial Blood Base Excess 5 mmol/L (-3-3) FiO2 100% nrb White Blood Count 8.5 x10^3/uL (4.0-11.0) Red Blood Count 4.15 x10^6/uL (3.50-5.40) Hemoglobin 11.6 g/dL (12.0-15.5) Hematocrit 34.0 % (36.0-47.0) Mean Corpuscular Volume 82 fL (79-100) Mean Corpuscular Hemoglobin 28 pg (25-35) Mean Corpuscular Hemoglobin Concent 34 g/dL (31-37) Red Cell Distribution Width 15.2 % (11.5-14.5) Platelet Count 378 x10^3/uL (140-400) Neutrophils (%) (Auto) 84 % (31-73) Lymphocytes (%) (Auto) 10 % (24-48) Monocytes (%) (Auto) 6 % (0-9) Eosinophils (%) (Auto) 0 % (0-3) Basophils (%) (Auto) 0 % (0-3) Neutrophils # (Auto) 7.1 x10^3/uL (1.8-7.7) Lymphocytes # (Auto) 0.9 x10^3/uL (1.0-4.8) Monocytes # (Auto) 0.5 x10^3/uL (0.0-1.1) Eosinophils # (Auto) 0.0 x10^3/uL (0.0-0.7) Basophils # (Auto) 0.0 x10^3/uL (0.0-0.2) D-Dimer (Shirley) 2.09 ug/mlFEU (0.00-0.50) Sodium Level 135 mmol/L (136-145) Potassium Level 3.8 mmol/L (3.5-5.1) Chloride Level 98 mmol/L (98-107) Carbon Dioxide Level 29 mmol/L (21-32) Anion Gap 8 (6-14) Blood Urea Nitrogen 9 mg/dL (7-20) Creatinine 0.7 mg/dL (0.6-1.0) Estimated GFR (Cockcroft-Gault) 90.9 BUN/Creatinine Ratio 13 (6-20) Glucose Level 96 mg/dL (70-99) Calcium Level 7.8 mg/dL (8.5-10.1) Ferritin 246 ng/mL (8-252) Total Bilirubin 0.4 mg/dL (0.2-1.0) Aspartate Amino Transf (AST/SGOT) 42 U/L (15-37) Alanine Aminotransferase (ALT/SGPT) 20 U/L (14-59) Alkaline Phosphatase 76 U/L (46-116) Lactate Dehydrogenase 626 U/L (81-234) C-Reactive Protein, Quantitative 101.3 mg/L (0-3.3) Total Protein 7.1 g/dL (6.4-8.2) Albumin 2.5 g/dL (3.4-5.0) Albumin/Globulin Ratio 0.5 (1.0-1.7) Assessment and Plan Assessmemt and Plan Problems Medical Problems: (1) Pneumonia due to COVID-19 virus Status: Acute Comment Review of Relevant I have reviewed the following items stephon (where applicable) has been applied. Labs Laboratory Tests Test 01/21/20 16:27 01/21/20 16:36 O2 Saturation 93 % (92-99) Arterial Blood pH 7.50 (7.35-7.45) Arterial Blood pCO2 at Patient Temp 37 mmHg (35-46) Arterial Blood pO2 at Patient Temp 68 mmHg (75-108) Arterial Blood HCO3 28 mmol/L (21-28) Arterial Blood Base Excess 5 mmol/L (-3-3) FiO2 100% nrb White Blood Count 8.5 x10^3/uL (4.0-11.0) Red Blood Count 4.15 x10^6/uL (3.50-5.40) Hemoglobin 11.6 g/dL (12.0-15.5) Hematocrit 34.0 % (36.0-47.0) Mean Corpuscular Volume 82 fL (79-100) Mean Corpuscular Hemoglobin 28 pg (25-35) Mean Corpuscular Hemoglobin Concent 34 g/dL (31-37) Red Cell Distribution Width 15.2 % (11.5-14.5) Platelet Count 378 x10^3/uL (140-400) Neutrophils (%) (Auto) 84 % (31-73) Lymphocytes (%) (Auto) 10 % (24-48) Monocytes (%) (Auto) 6 % (0-9) Eosinophils (%) (Auto) 0 % (0-3) Basophils (%) (Auto) 0 % (0-3) Neutrophils # (Auto) 7.1 x10^3/uL (1.8-7.7) Lymphocytes # (Auto) 0.9 x10^3/uL (1.0-4.8) Monocytes # (Auto) 0.5 x10^3/uL (0.0-1.1) Eosinophils # (Auto) 0.0 x10^3/uL (0.0-0.7) Basophils # (Auto) 0.0 x10^3/uL (0.0-0.2) D-Dimer (Shirley) 2.09 ug/mlFEU (0.00-0.50) Sodium Level 135 mmol/L (136-145) Potassium Level 3.8 mmol/L (3.5-5.1) Chloride Level 98 mmol/L (98-107) Carbon Dioxide Level 29 mmol/L (21-32) Anion Gap 8 (6-14) Blood Urea Nitrogen 9 mg/dL (7-20) Creatinine 0.7 mg/dL (0.6-1.0) Estimated GFR (Cockcroft-Gault) 90.9 BUN/Creatinine Ratio 13 (6-20) Glucose Level 96 mg/dL (70-99) Calcium Level 7.8 mg/dL (8.5-10.1) Ferritin 246 ng/mL (8-252) Total Bilirubin 0.4 mg/dL (0.2-1.0) Aspartate Amino Transf (AST/SGOT) 42 U/L (15-37) Alanine Aminotransferase (ALT/SGPT) 20 U/L (14-59) Alkaline Phosphatase 76 U/L (46-116) Lactate Dehydrogenase 626 U/L (81-234) C-Reactive Protein, Quantitative 101.3 mg/L (0-3.3) Total Protein 7.1 g/dL (6.4-8.2) Albumin 2.5 g/dL (3.4-5.0) Albumin/Globulin Ratio 0.5 (1.0-1.7) Laboratory Tests Test 01/21/20 16:27 01/21/20 16:36 O2 Saturation 93 % (92-99) Arterial Blood pH 7.50 (7.35-7.45) Arterial Blood pCO2 at Patient Temp 37 mmHg (35-46) Arterial Blood pO2 at Patient Temp 68 mmHg (75-108) Arterial Blood HCO3 28 mmol/L (21-28) Arterial Blood Base Excess 5 mmol/L (-3-3) FiO2 100% nrb White Blood Count 8.5 x10^3/uL (4.0-11.0) Red Blood Count 4.15 x10^6/uL (3.50-5.40) Hemoglobin 11.6 g/dL (12.0-15.5) Hematocrit 34.0 % (36.0-47.0) Mean Corpuscular Volume 82 fL (79-100) Mean Corpuscular Hemoglobin 28 pg (25-35) Mean Corpuscular Hemoglobin Concent 34 g/dL (31-37) Red Cell Distribution Width 15.2 % (11.5-14.5) Platelet Count 378 x10^3/uL (140-400) Neutrophils (%) (Auto) 84 % (31-73) Lymphocytes (%) (Auto) 10 % (24-48) Monocytes (%) (Auto) 6 % (0-9) Eosinophils (%) (Auto) 0 % (0-3) Basophils (%) (Auto) 0 % (0-3) Neutrophils # (Auto) 7.1 x10^3/uL (1.8-7.7) Lymphocytes # (Auto) 0.9 x10^3/uL (1.0-4.8) Monocytes # (Auto) 0.5 x10^3/uL (0.0-1.1) Eosinophils # (Auto) 0.0 x10^3/uL (0.0-0.7) Basophils # (Auto) 0.0 x10^3/uL (0.0-0.2) D-Dimer (Shirley) 2.09 ug/mlFEU (0.00-0.50) Sodium Level 135 mmol/L (136-145) Potassium Level 3.8 mmol/L (3.5-5.1) Chloride Level 98 mmol/L (98-107) Carbon Dioxide Level 29 mmol/L (21-32) Anion Gap 8 (6-14) Blood Urea Nitrogen 9 mg/dL (7-20) Creatinine 0.7 mg/dL (0.6-1.0) Estimated GFR (Cockcroft-Gault) 90.9 BUN/Creatinine Ratio 13 (6-20) Glucose Level 96 mg/dL (70-99) Calcium Level 7.8 mg/dL (8.5-10.1) Ferritin 246 ng/mL (8-252) Total Bilirubin 0.4 mg/dL (0.2-1.0) Aspartate Amino Transf (AST/SGOT) 42 U/L (15-37) Alanine Aminotransferase (ALT/SGPT) 20 U/L (14-59) Alkaline Phosphatase 76 U/L (46-116) Lactate Dehydrogenase 626 U/L (81-234) C-Reactive Protein, Quantitative 101.3 mg/L (0-3.3) Total Protein 7.1 g/dL (6.4-8.2) Albumin 2.5 g/dL (3.4-5.0) Albumin/Globulin Ratio 0.5 (1.0-1.7) Medications Current Medications Acetaminophen (Tylenol) 1,000 mg 1X ONCE PO Last administered on 01/21/20at 17:00; Start 01/21/20 at 17:00; Stop 01/21/20 at 17:01; Status DC Ondansetron HCl (Zofran) 4 mg PRN Q8HRS PRN IV NAUSEA/VOMITING; Start 01/21/20 at 18:00; Stop 01/22/20 at 07:55; Status DC Dexamethasone Sodium Phosphate (Decadron) 6 mg 1X ONCE IVP Last administered on 01/21/20at 18:14; Start 01/21/20 at 18:00; Stop 01/21/20 at 18:01; Status DC Ceftriaxone Sodium (Rocephin) 1 gm 1X ONCE IVP Last administered on 01/21/20at 18:14; Start 01/21/20 at 18:00; Stop 01/21/20 at 18:01; Status DC Azithromycin 500 mg/Sodium Chloride 250 ml @ 250 mls/hr Q24H IV ; Start 01/22/20 at 19:00 Azithromycin 250 ml @ 250 mls/hr 1X ONCE IV Last administered on 01/21/20at 18:25; Start 01/21/20 at 18:15; Stop 01/21/20 at 19:14; Status DC Dexamethasone Sodium Phosphate (Decadron) 6 mg DAILY IVP Last administered on 01/22/20at 09:41; Start 01/22/20 at 09:00 Ceftriaxone Sodium (Rocephin) 1 gm Q24H IVP ; Start 01/22/20 at 20:00 Azithromycin 250 ml @ 250 mls/hr 1X ONCE IV ; Start 01/21/20 at 19:45; Stop 01/21/20 at 20:44; Status UNV Acetaminophen (Tylenol) 650 mg PRN Q6HRS PRN PO Headaches, Temp > 101.5'; Start 01/21/20 at 19:45 Ondansetron HCl (Zofran) 4 mg PRN Q6HRS PRN IVP NAUSEA/VOMITING; Start 01/21/20 at 19:45 Al Hydroxide/Mg Hydroxide (Mylanta Plus Xs) 30 ml PRN Q3HRS PRN PO HEARTBURN / GAS; Start 01/21/20 at 19:45 Famotidine (Pepcid) 20 mg BID PO Last administered on 01/22/20at 09:41; Start 01/21/20 at 21:00 Enoxaparin Sodium (Lovenox 40mg Syringe) 40 mg Q24H SQ Last administered on 01/21/20at 21:07; Start 01/21/20 at 20:00 Sodium Chloride (Normal Saline Flush) 3 ml QSHIFT PRN IV AFTER MEDS AND BLOOD DRAWS; Start 01/21/20 at 19:45 Senna/Docusate Sodium (Senna Plus) 1 tab BID PO Last administered on 01/22/20at 09:41; Start 01/21/20 at 21:00 Magnesium Hydroxide (Milk Of Magnesia) 2,400 mg PRN Q12HR PRN PO CONSTIPATION; Start 01/21/20 at 19:45 Sterile Water (WATER for RESP) 1,000 ml CONT PRN INH VIA VAPOTHERM DEVICE Last administered on 01/22/20at 04:28; Start 01/22/20 at 04:30 Lactobacillus Rhamnosus (Culturelle) 1 cap BID PO Last administered on 01/22/20at 09:41; Start 01/22/20 at 09:00 Non-Formulary Medication 1 ea/ Sodium Chloride 230 ml @ 460 mls/hr ONCE ONCE IV ; Start 01/22/20 at 11:00; Stop 01/22/20 at 11:29 Non-Formulary Medication 1 ea/ Sodium Chloride 230 ml @ 460 mls/hr DAILY IV ; Start 01/23/20 at 09:00; Stop 01/26/20 at 09:29 Active Scripts Active Keflex (Cephalexin) 500 Mg Capsule 500 Mg PO QID 10 Days [place] 5-325 Tablet (Acetaminophen/Hydrocodone Bitart) 1 Each Tablet 1 Tab PO PRN Q6HRS PRN Vitals/I & O Vital Sign - Last 24 Hours 01/21/20 01/21/20 01/21/20 01/21/20 16:15 16:20 16:46 17:16 Temp 100.2 100.2 Pulse 85 76 70 Resp 28 B/P (MAP) 124/66 (85) 110/52 (71) 110/64 (79) Pulse Ox 99 96 90 O2 Delivery NonRebreather Mask NonRebreather Mask NonRebreather Mask NonRebr eather Mask O2 Flow Rate 15.0 15.0 01/21/20 01/21/20 01/21/20 01/21/20 17:46 18:20 18:48 21:30 Temp 96.2 96.2 Pulse 70 84 60 Resp 25 B/P (MAP) 104/55 (71) 123/57 (79) 124/59 (80) Pulse Ox 95 95 97 O2 Delivery NonRebreather Mask NonRebreather Mask NonRebreather Mask NonRebreather Mask O2 Flow Rate 15.0 15.0 15.0 15.0 01/21/20 01/21/20 01/22/20 01/22/20 22:00 23:00 00:00 01:00 Temp 96.3 96.3 Pulse 60 60 63 61 Resp 25 25 25 25 B/P (MAP) 131/61 (84) 121/52 (75) 106/57 (73) 113/56 (75) Pulse Ox 97 94 93 94 O2 Delivery NonRebreather Mask NonRebreather Mask NonRebreather Mask NonRebreather Mask O2 Flow Rate 15.0 15.0 15.0 15.0 01/22/20 01/22/20 01/22/20 01/22/20 02:00 03:00 04:00 04:36 Temp 96.3 96.3 Pulse 63 58 74 Resp 25 25 25 B/P (MAP) 119/57 (77) 112/61 (78) 106/57 (73) Pulse Ox 93 95 92 93 O2 Delivery NonRebreather Mask NonRebreather Mask NonRebreather Mask High Flow Nasal Cannula O2 Flow Rate 15.0 15.0 15.0 30.0 01/22/20 01/22/20 05:00 06:00 Pulse 55 61 Resp 31 31 B/P (MAP) 118/65 (82) 118/66 (83) Pulse Ox 97 94 O2 Delivery NonRebreather Mask NonRebreather Mask O2 Flow Rate 30.0 30.0 Intake and Output 01/21/20 01/21/20 01/22/20 15:00 23:00 07:00 Intake Total 230 ml 460 ml Balance 230 ml 460 ml JORDY FLORIAN MD Jan 22, 2020 09:52
--- NOTE | 2020-01-22 10:01 | NUR ---
Talked with Savana Reyes reqarding covid test results. She contacted [facility] and they confirmed that she was tested on the and came back positive on the . Informed Dr Amador of this and orders received.
--- NOTE | 2020-01-22 10:02 | NUR ---
IP: Confirmed date of COVID positive test of 01/13/20 with [facility].
--- NOTE | 2020-01-22 10:12 | CONS ---
DATE OF CONSULTATION: PULMONARY CONSULTATION ATTENDING PHYSICIAN: Nicholas Gilliam MD. REASON FOR CONSULTATION: Hypoxic respiratory failure, COVID pneumonia. HISTORY OF PRESENT ILLNESS: The patient is a 44-year-old female who has hypertension and obesity. She is Frisian speaking female. She was brought into the hospital with 10-day history of cough, shortness of breath and fever. She was tested COVID positive in an outside facility along with her family members. She was progressively dyspneic for several days. She called EMS because of difficulty with breathing. Her saturation was 60% on arrival. She was placed on a nonrebreather mask and sent to [facility]. Her arterial blood gases revealed a pH of 7.50, pCO2 of 37, and pO2 of 68 on 100% nonrebreather mask. She is currently on high-flow Vapotherm at 100% on 40 liters. Her chest x-ray showed bilateral patchy infiltrates. The patient will be started on remdesivir and started on dexamethasone. PAST MEDICAL HISTORY: History of hypertension and obesity. PAST SURGICAL HISTORY: None. ALLERGIES: IBUPROFEN. MEDICATIONS: Reviewed as listed in the MRAD including broad-spectrum antibiotics, dexamethasone. REVIEW OF SYSTEMS: Unable to obtain from the patient. SOCIAL HISTORY: Nonsmoker. PHYSICAL EXAMINATION: GENERAL: Visual exam was performed due to COVID-19. She is in no obvious respiratory distress while on Vapotherm at 100%. VITAL SIGNS: Blood pressure 118/66. She is afebrile with T-max of 100.2. There is no obvious rash. There is no paradoxical breathing. She is obese. LABORATORY DATA: Reviewed. ABGs as discussed in my history of present illness. BUN and creatinine normal. LDH is 626, albumin 2.5. D-dimer 2.09. White cell count 8.5. IMPRESSION: 1. Acute hypoxic respiratory failure secondary to COVID-19 pneumonia and sepsis. 2. Abnormal chest x-ray with bilateral patchy infiltrates compatible with COVID-19 pneumonia. Cannot exclude any superimposed gram-negative pneumonia. 3. Underlying obesity. 4. Hypertension. RECOMMENDATIONS: 1. Continue with present Vapotherm at 100% FiO2 on 40 liters flow. 2. We will follow the clinical response to treatment. 3. Broad-spectrum antibiotics per ID. 4. Remdesivir per ID. 5. The patient declines plasma. 6. Continue dexamethasone. 7. We will follow the response to treatment. Discussed with RN. Labs reviewed, chart reviewed, and chest x-ray reviewed. Critical care time 37 minutes. MIKE OCHOA MD DR: NIDIA/charlene JOB#: [id number] / [id number]
--- NOTE | 2020-01-22 10:18 | CONS ---
DATE OF CONSULTATION: 01/22/2020 REQUESTING PHYSICIAN: Dr. Gilliam. REASON FOR CONSULTATION: COVID-19 positive with pneumonia. HISTORY OF PRESENT ILLNESS: This is a 44-year-old female, who has been having fever and shortness of breath for about a week or so. The patient had outpatient COVID-19 done, which was positive and because of more shortness of breath, she decided to come in. The patient is requiring significant oxygen support. The patient denies any nausea, vomiting or diarrhea. Denies any other complaints other than shortness of breath. I tried to communicate with her through the iron pourer phone, but waited for a long time and no finisher operator came on to the phone. Hence, I had to rely on the documented history as well as talking to the patient's nurse, who was able to communicate with her through the phone. In fact, she communicated with her and she does not want plasma. She was not able to find the reason. PAST MEDICAL HISTORY: Positive for obesity, hypertension. SOCIAL HISTORY: Negative for smoking, alcohol or illicit drug use. ALLERGIES: LISTED ALLERGIC TO IBUPROFEN. CURRENT MEDICATIONS: Reviewed. REVIEW OF SYSTEMS: As per HPI, all other systems reviewed and are negative. PHYSICAL EXAMINATION: GENERAL: Alert, oriented female, not in distress. VITAL SIGNS: Stable with a T-max 100.2. The patient is on a 15-liter nonrebreather mask with saturation 94. HEENT: Both pupils are round and reacting. No conjunctival lesion, no lesion in the mouth. NECK: Supple, no JVP, no lymphadenopathy. LUNGS: Clear. HEART: S1, S2 regular. ABDOMEN: Benign. EXTREMITIES: No edema or cyanosis. SKIN: Unremarkable. NEUROLOGIC: The patient is alert, awake and appropriate. No focal neurologic deficit. LABORATORY DATA: White count is 8.5, hemoglobin 11.6, platelets are normal. Lymphopenia present. BUN and creatinine are normal. Her ferritin is 246. Her LDH is 626. CRP is 101. AST 42, ALT 20, albumin is 2.5. Chest x-ray, [id number] perihilar mixed interstitial and alveolar airspace disease. IMPRESSION: 1. Positive pneumonia from COVID-19. 2. Fever. 3. Hypoxemia. 4. Obesity. 5. Hypertension. RECOMMENDATIONS: We will start her on remdesivir, although I would like to also get our confirmation on COVID and/or obtain the results from outside. We will again try to communicate about plasma and see if any specific reason she does not want it. For the time being, we will treat her with supportive care and remdesivir. Thank you very much, Dr. Gilliam, for giving me the opportunity to participate in this patient's care. BEKAH ALVA MD DR: ЕЛЕНА/charlene JOB#: [id number] / [id number]
[2020-01-22] MEDS ORDERED: NON FORMULARY ITEM 1 EA in IV NORMAL SALINE 250ML 210 ML IV ONE (11:00)
[2020-01-22] MEDS: ENOXAPARIN 40 MG/0.4 ML SYRINGE. SQ SCH ×2 (12:11→21:31)
--- NOTE | 2020-01-22 14:25 | NUR ---
SS following for discharge planning. SS reviewed pt chart and discussed with pt RN. Pt is from home with family and is currently on Vapotherm. Pt COVID19 positive. Pt on IV Rocephin and Azithromycin. Pt was given Remdesivir. SS will continue to follow for discharge planning.
[2020-01-22] MEDS: AZITHROMYCIN 500 MG in IV NORMAL SALINE 250ML 250 ML IV SCH (18:40)
[2020-01-22] MEDS: cefTRIAXone IV Push 1 GM VIAL. IVP SCH (19:54)
--- NOTE | 2020-01-22 22:41 | NUR ---
patient O2 stat between 89-92. Spoke to RT. states this is where patient stats have been. No changes to o2 at this time
[2020-01-23] VITALS (26 sets, daily range): BP systolic 111–160; BP diastolic 59–91
[2020-01-23 07:46] LABS: ALBUMIN 2.1 g/dL (3.4-5.0); ALBUMIN/GLOBULIN RATIO 0.5 (1.0-1.7); BASO % 0 % (0-3); CALCIUM 7.5 mg/dL (8.5-10.1); CREATININE 0.8 mg/dL (0.6-1.0); EOS % 0 % (0-3); GFR 77.9; HEMATOCRIT 34.4 % (36.0-47.0); HEMOGLOBIN 11.5 g/dL (12.0-15.5); LYMPH # 0.6 x10^3/uL (1.0-4.8); LYMPH % 4 % (24-48); MEAN CORPUSCULAR HEMOGLOBIN 28 pg (25-35); MEAN CORPUSCULAR HGB CONC 33 g/dL (31-37); MEAN CORPUSCULAR VOLUME 83 fL (79-100); MONO # 0.4 x10^3/uL (0.0-1.1); MONO % 2 % (0-9); NEUT # 15.4 x10^3/uL (1.8-7.7); NEUT % 94 % (31-73); PLATELET COUNT 439 x10^3/uL (140-400); RED BLOOD COUNT 4.15 x10^6/uL (3.50-5.40); RED CELL DISTRIBUTION WIDTH 15.2 % (11.5-14.5); TOTAL BILIRUBIN 0.3 mg/dL (0.2-1.0); TOTAL PROTEIN 6.6 g/dL (6.4-8.2); WHITE BLOOD COUNT 16.5 x10^3/uL (4.0-11.0)
[2020-01-23 09:03] LABS: % BANDS 6 % (0-9); % LYMPHS 3 % (24-48); % MONOS 2 % (0-10); % SEGS 89 % (35-66); NUCLEATED RBC 1; PLT ESTIMATE INCREASED (ADEQUATE)
--- NOTE | 2020-01-23 09:03 | PDOC ---
Infectious Disease Note Subjective Subjective pt is feeling ok, slightly more sob ROS ROS no n/v/d/fever Vital Sign Vital Signs Vital Signs Date Time Temp Pulse Resp B/P (MAP) Pulse Ox O2 Delivery O2 Flow Rate FiO2 01/23/20 07:00 68 19 120/64 (82) 88 High Flow Nasal Cannula 40.0 01/23/20 04:00 97.8 97.8 Physical Exam PHYSICAL EXAM GENERAL: Alert, oriented female, in mild distress. VITAL SIGNS: Stable HEENT: Both pupils are round and reacting. No conjunctival lesion, no lesion in the mouth. NECK: Supple, no JVP, no lymphadenopathy. LUNGS: Clear. HEART: S1, S2 regular. ABDOMEN: Benign. EXTREMITIES: No edema or cyanosis. SKIN: Unremarkable. NEUROLOGIC: The patient is alert, awake and appropriate. No focal neurologic deficit. Labs Lab Laboratory Tests Test 01/23/20 07:15 White Blood Count 16.5 x10^3/uL (4.0-11.0) Red Blood Count 4.15 x10^6/uL (3.50-5.40) Hemoglobin 11.5 g/dL (12.0-15.5) Hematocrit 34.4 % (36.0-47.0) Mean Corpuscular Volume 83 fL (79-100) Mean Corpuscular Hemoglobin 28 pg (25-35) Mean Corpuscular Hemoglobin Concent 33 g/dL (31-37) Red Cell Distribution Width 15.2 % (11.5-14.5) Platelet Count 439 x10^3/uL (140-400) Neutrophils (%) (Auto) 94 % (31-73) Lymphocytes (%) (Auto) 4 % (24-48) Monocytes (%) (Auto) 2 % (0-9) Eosinophils (%) (Auto) 0 % (0-3) Basophils (%) (Auto) 0 % (0-3) Neutrophils # (Auto) 15.4 x10^3/uL (1.8-7.7) Lymphocytes # (Auto) 0.6 x10^3/uL (1.0-4.8) Monocytes # (Auto) 0.4 x10^3/uL (0.0-1.1) Eosinophils # (Auto) 0.0 x10^3/uL (0.0-0.7) Basophils # (Auto) 0.0 x10^3/uL (0.0-0.2) Sodium Level 141 mmol/L (136-145) Potassium Level 4.0 mmol/L (3.5-5.1) Chloride Level 105 mmol/L (98-107) Carbon Dioxide Level 30 mmol/L (21-32) Anion Gap 6 (6-14) Blood Urea Nitrogen 12 mg/dL (7-20) Creatinine 0.8 mg/dL (0.6-1.0) Estimated GFR (Cockcroft-Gault) 77.9 BUN/Creatinine Ratio 15 (6-20) Glucose Level 122 mg/dL (70-99) Calcium Level 7.5 mg/dL (8.5-10.1) Total Bilirubin 0.3 mg/dL (0.2-1.0) Aspartate Amino Transf (AST/SGOT) 36 U/L (15-37) Alanine Aminotransferase (ALT/SGPT) 23 U/L (14-59) Alkaline Phosphatase 73 U/L (46-116) Total Protein 6.6 g/dL (6.4-8.2) Albumin 2.1 g/dL (3.4-5.0) Albumin/Globulin Ratio 0.5 (1.0-1.7) Objective Assessment IMPRESSION: 1. Positive pneumonia from COVID-19. 2. Fever. 3. Hypoxemia. 4. Obesity. 5. Hypertension. Plan Plan of Care cont Remsidivir cont supportive care plasma given check bio markers BEKAH ALVA MD Jan 23, 2020 09:03
[2020-01-23 09:04] LABS: POLYCHROMASIA SLIGHT
[2020-01-23] MEDS: DEXAMETHASONE SOD PHOS 4 MG/ML VIAL IVP SCH (09:09)
[2020-01-23] MEDS: LACTOBACILLUS RHAMNOSUS GG 1 CAPSULE. PO SCH ×2 (09:09→21:00)
[2020-01-23] MEDS: ENOXAPARIN 40 MG/0.4 ML SYRINGE. SQ SCH ×2 (09:09→21:12)
[2020-01-23] MEDS: FAMOTIDINE 20 MG TABLET. PO SCH ×2 (09:09→21:12)
[2020-01-23] MEDS: SENNOSIDES/DOCUSATE 8.6/50MG TABLET. PO SCH ×2 (09:09→21:00)
--- NOTE | 2020-01-23 09:35 | PDOC ---
PROGRESS NOTES History of Present Illness History of Present Illness VTE Prophylaxis Ordered VTE Prophylaxis Devices: Yes VTE Pharmacological Prophylaxi: Yes Assessment/Plan Assessment/Plan ASSESSMENT Acute Hypoxic Respiratory Failure Secondary to COVID-PNA multifocal pulmonary infiltrates.// follow-up to resolution. Morbid Obesity HTN NORMOCYTIC ANEMIA severe protein-caloric malnutrition PLAN - CONT ICU given hypoxic resp failure on non-rebreather - check inflammatory markers: ESR, INC CRP, ferratin, LDH, d dimer - dexamethasone 6 mg IV daily - continue zithromax , Rocephin - ID consult for plasma and remdesevir considerations - pulm consult given hypoxia - dvt ppx: lovenox 40 MG BID - GI ppx: pepcid FULL CODE monitor in ICU given hypoxia she does not want plasma.PROTOCOL LOS greater than 2 midnights given resp failure, COVID PNA 01/22 t max 99.6 32 MIN CC TIME Justicifation of Admission Dx: Justicifation of Admission Dx: Justifications for Admission: Justification of Admission Dx: Yes Respiratory Failure: Severe Resp Distress Vitals Vitals Vital Signs Date Time Temp Pulse Resp B/P (MAP) Pulse Ox O2 Delivery O2 Flow Rate FiO2 01/23/20 09:03 92 Vapotherm HHFNC 40.0 01/23/20 07:00 68 19 120/64 (82) 01/23/20 04:00 97.8 97.8 Physical Exam Physical Exam GENERAL: Alert, oriented female, not in distress. VITAL SIGNS: Stable HEENT: Both pupils are round and reacting. No conjunctival lesion, no lesion in the mouth. NECK: Supple, no JVP, no lymphadenopathy. LUNGS: Clear. HEART: S1, S2 regular. ABDOMEN: Benign. EXTREMITIES: No edema or cyanosis. SKIN: Unremarkable. NEUROLOGIC: The patient is alert, awake and appropriate. No focal neurologic deficit. General: Oriented X3, Cooperative, mild distress Extremities: No clubbing, No cyanosis Labs LABS CHEST AP ONLY 01/21/2020 4:46 PM INDICATION: Cough COMPARISON: None available TECHNIQUE: Portable frontal view of the chest is provided. FINDINGS: The cardiomediastinal silhouette is within normal limits. Moderate to advanced perihilar mixed interstitial and alveolar airspace disease. Small bilateral pleural effusions adjacent compressive atelectasis. No pneumothorax. No suspicious osseous abnormality. IMPRESSION: Moderate to advanced perihilar mixed interstitial and alveolar airspace disease may be associated with pulmonary edema/hemorrhage versus multifocal pulmonary infiltrates. Recommend follow-up to resolution. Electronically signed by: Lm Cabello MD (01/21/2020 5:31 PM) [facility] DICTATED and SIGNED BY: LM CABELLO MD DATE: 01/21/20 6045 Laboratory Tests Test 01/23/20 07:15 White Blood Count 16.5 x10^3/uL (4.0-11.0) Red Blood Count 4.15 x10^6/uL (3.50-5.40) Hemoglobin 11.5 g/dL (12.0-15.5) Hematocrit 34.4 % (36.0-47.0) Mean Corpuscular Volume 83 fL (79-100) Mean Corpuscular Hemoglobin 28 pg (25-35) Mean Corpuscular Hemoglobin Concent 33 g/dL (31-37) Red Cell Distribution Width 15.2 % (11.5-14.5) Platelet Count 439 x10^3/uL (140-400) Neutrophils (%) (Auto) 94 % (31-73) Lymphocytes (%) (Auto) 4 % (24-48) Monocytes (%) (Auto) 2 % (0-9) Eosinophils (%) (Auto) 0 % (0-3) Basophils (%) (Auto) 0 % (0-3) Neutrophils # (Auto) 15.4 x10^3/uL (1.8-7.7) Lymphocytes # (Auto) 0.6 x10^3/uL (1.0-4.8) Monocytes # (Auto) 0.4 x10^3/uL (0.0-1.1) Eosinophils # (Auto) 0.0 x10^3/uL (0.0-0.7) Basophils # (Auto) 0.0 x10^3/uL (0.0-0.2) Segmented Neutrophils % 89 % (35-66) Band Neutrophils % 6 % (0-9) Lymphocytes % 3 % (24-48) Monocytes % 2 % (0-10) Nucleated Red Blood Cells 1 Platelet Estimate Increased (ADEQUATE) Large Platelets Occ Polychromasia Slight Sodium Level 141 mmol/L (136-145) Potassium Level 4.0 mmol/L (3.5-5.1) Chloride Level 105 mmol/L (98-107) Carbon Dioxide Level 30 mmol/L (21-32) Anion Gap 6 (6-14) Blood Urea Nitrogen 12 mg/dL (7-20) Creatinine 0.8 mg/dL (0.6-1.0) Estimated GFR (Cockcroft-Gault) 77.9 BUN/Creatinine Ratio 15 (6-20) Glucose Level 122 mg/dL (70-99) Calcium Level 7.5 mg/dL (8.5-10.1) Total Bilirubin 0.3 mg/dL (0.2-1.0) Aspartate Amino Transf (AST/SGOT) 36 U/L (15-37) Alanine Aminotransferase (ALT/SGPT) 23 U/L (14-59) Alkaline Phosphatase 73 U/L (46-116) Total Protein 6.6 g/dL (6.4-8.2) Albumin 2.1 g/dL (3.4-5.0) Albumin/Globulin Ratio 0.5 (1.0-1.7) Assessment and Plan Assessmemt and Plan Problems Medical Problems: (1) Pneumonia due to COVID-19 virus Status: Acute Comment Review of Relevant I have reviewed the following items stephon (where applicable) has been applied. Labs Laboratory Tests Test 01/21/20 16:27 01/21/20 16:36 01/22/20 05:00 01/23/20 07:15 O2 Saturation 93 % (92-99) Arterial Blood pH 7.50 (7.35-7.45) Arterial Blood pCO2 at Patient Temp 37 mmHg (35-46) Arterial Blood pO2 at Patient Temp 68 mmHg (75-108) Arterial Blood HCO3 28 mmol/L (21-28) Arterial Blood Base Excess 5 mmol/L (-3-3) FiO2 100% nrb White Blood Count 8.5 x10^3/uL (4.0-11.0) 16.5 x10^3/uL (4.0-11.0) Red Blood Count 4.15 x10^6/uL (3.50-5.40) 4.15 x10^6/uL (3.50-5.40) Hemoglobin 11.6 g/dL (12.0-15.5) 11.5 g/dL (12.0-15.5) Hematocrit 34.0 % (36.0-47.0) 34.4 % (36.0-47.0) Mean Corpuscular Volume 82 fL (79-100) 83 fL (79-100) Mean Corpuscular Hemoglobin 28 pg (25-35) 28 pg (25-35) Mean Corpuscular Hemoglobin Concent 34 g/dL (31-37) 33 g/dL (31-37) Red Cell Distribution Width 15.2 % (11.5-14.5) 15.2 % (11.5-14.5) Platelet Count 378 x10^3/uL (140-400) 439 x10^3/uL (140-400) Neutrophils (%) (Auto) 84 % (31-73) 94 % (31-73) Lymphocytes (%) (Auto) 10 % (24-48) 4 % (24-48) Monocytes (%) (Auto) 6 % (0-9) 2 % (0-9) Eosinophils (%) (Auto) 0 % (0-3) 0 % (0-3) Basophils (%) (Auto) 0 % (0-3) 0 % (0-3) Neutrophils # (Auto) 7.1 x10^3/uL (1.8-7.7) 15.4 x10^3/uL (1.8-7.7) Lymphocytes # (Auto) 0.9 x10^3/uL (1.0-4.8) 0.6 x10^3/uL (1.0-4.8) Monocytes # (Auto) 0.5 x10^3/uL (0.0-1.1) 0.4 x10^3/uL (0.0-1.1) Eosinophils # (Auto) 0.0 x10^3/uL (0.0-0.7) 0.0 x10^3/uL (0.0-0.7) Basophils # (Auto) 0.0 x10^3/uL (0.0-0.2) 0.0 x10^3/uL (0.0-0.2) D-Dimer (Shirley) 2.09 ug/mlFEU (0.00-0.50) Sodium Level 135 mmol/L (136-145) 141 mmol/L (136-145) Potassium Level 3.8 mmol/L (3.5-5.1) 4.0 mmol/L (3.5-5.1) Chloride Level 98 mmol/L (98-107) 105 mmol/L (98-107) Carbon Dioxide Level 29 mmol/L (21-32) 30 mmol/L (21-32) Anion Gap 8 (6-14) 6 (6-14) Blood Urea Nitrogen 9 mg/dL (7-20) 12 mg/dL (7-20) Creatinine 0.7 mg/dL (0.6-1.0) 0.8 mg/dL (0.6-1.0) Estimated GFR (Cockcroft-Gault) 90.9 77.9 BUN/Creatinine Ratio 13 (6-20) 15 (6-20) Glucose Level 96 mg/dL (70-99) 122 mg/dL (70-99) Calcium Level 7.8 mg/dL (8.5-10.1) 7.5 mg/dL (8.5-10.1) Ferritin 246 ng/mL (8-252) Total Bilirubin 0.4 mg/dL (0.2-1.0) 0.3 mg/dL (0.2-1.0) Aspartate Amino Transf (AST/SGOT) 42 U/L (15-37) 36 U/L (15-37) Alanine Aminotransferase (ALT/SGPT) 20 U/L (14-59) 23 U/L (14-59) Alkaline Phosphatase 76 U/L (46-116) 73 U/L (46-116) Lactate Dehydrogenase 626 U/L (81-234) C-Reactive Protein, Quantitative 101.3 mg/L (0-3.3) Total Protein 7.1 g/dL (6.4-8.2) 6.6 g/dL (6.4-8.2) Albumin 2.5 g/dL (3.4-5.0) 2.1 g/dL (3.4-5.0) Albumin/Globulin Ratio 0.5 (1.0-1.7) 0.5 (1.0-1.7) Nasal Screen MRSA (PCR) Negative (NEGATIVE) Segmented Neutrophils % 89 % (35-66) Band Neutrophils % 6 % (0-9) Lymphocytes % 3 % (24-48) Monocytes % 2 % (0-10) Nucleated Red Blood Cells 1 Platelet Estimate Increased (ADEQUATE) Large Platelets Occ Polychromasia Slight Laboratory Tests Test 01/23/20 07:15 White Blood Count 16.5 x10^3/uL (4.0-11.0) Red Blood Count 4.15 x10^6/uL (3.50-5.40) Hemoglobin 11.5 g/dL (12.0-15.5) Hematocrit 34.4 % (36.0-47.0) Mean Corpuscular Volume 83 fL (79-100) Mean Corpuscular Hemoglobin 28 pg (25-35) Mean Corpuscular Hemoglobin Concent 33 g/dL (31-37) Red Cell Distribution Width 15.2 % (11.5-14.5) Platelet Count 439 x10^3/uL (140-400) Neutrophils (%) (Auto) 94 % (31-73) Lymphocytes (%) (Auto) 4 % (24-48) Monocytes (%) (Auto) 2 % (0-9) Eosinophils (%) (Auto) 0 % (0-3) Basophils (%) (Auto) 0 % (0-3) Neutrophils # (Auto) 15.4 x10^3/uL (1.8-7.7) Lymphocytes # (Auto) 0.6 x10^3/uL (1.0-4.8) Monocytes # (Auto) 0.4 x10^3/uL (0.0-1.1) Eosinophils # (Auto) 0.0 x10^3/uL (0.0-0.7) Basophils # (Auto) 0.0 x10^3/uL (0.0-0.2) Segmented Neutrophils % 89 % (35-66) Band Neutrophils % 6 % (0-9) Lymphocytes % 3 % (24-48) Monocytes % 2 % (0-10) Nucleated Red Blood Cells 1 Platelet Estimate Increased (ADEQUATE) Large Platelets Occ Polychromasia Slight Sodium Level 141 mmol/L (136-145) Potassium Level 4.0 mmol/L (3.5-5.1) Chloride Level 105 mmol/L (98-107) Carbon Dioxide Level 30 mmol/L (21-32) Anion Gap 6 (6-14) Blood Urea Nitrogen 12 mg/dL (7-20) Creatinine 0.8 mg/dL (0.6-1.0) Estimated GFR (Cockcroft-Gault) 77.9 BUN/Creatinine Ratio 15 (6-20) Glucose Level 122 mg/dL (70-99) Calcium Level 7.5 mg/dL (8.5-10.1) Total Bilirubin 0.3 mg/dL (0.2-1.0) Aspartate Amino Transf (AST/SGOT) 36 U/L (15-37) Alanine Aminotransferase (ALT/SGPT) 23 U/L (14-59) Alkaline Phosphatase 73 U/L (46-116) Total Protein 6.6 g/dL (6.4-8.2) Albumin 2.1 g/dL (3.4-5.0) Albumin/Globulin Ratio 0.5 (1.0-1.7) Medications Current Medications Acetaminophen (Tylenol) 1,000 mg 1X ONCE PO Last administered on 01/21/20at 17:00; Start 01/21/20 at 17:00; Stop 01/21/20 at 17:01; Status DC Ondansetron HCl (Zofran) 4 mg PRN Q8HRS PRN IV NAUSEA/VOMITING; Start 01/21/20 at 18:00; Stop 01/22/20 at 07:55; Status DC Dexamethasone Sodium Phosphate (Decadron) 6 mg 1X ONCE IVP Last administered on 01/21/20at 18:14; Start 01/21/20 at 18:00; Stop 01/21/20 at 18:01; Status DC Ceftriaxone Sodium (Rocephin) 1 gm 1X ONCE IVP Last administered on 01/21/20at 18:14; Start 01/21/20 at 18:00; Stop 01/21/20 at 18:01; Status DC Azithromycin 500 mg/Sodium Chloride 250 ml @ 250 mls/hr Q24H IV Last administered on 01/22/20at 18:40; Start 01/22/20 at 19:00 Azithromycin 250 ml @ 250 mls/hr 1X ONCE IV Last administered on 01/21/20at 18:25; Start 01/21/20 at 18:15; Stop 01/21/20 at 19:14; Status DC Dexamethasone Sodium Phosphate (Decadron) 6 mg DAILY IVP Last administered on 01/23/20at 09:09; Start 01/22/20 at 09:00 Ceftriaxone Sodium (Rocephin) 1 gm Q24H IVP Last administered on 01/22/20at 19:54; Start 01/22/20 at 20:00 Azithromycin 250 ml @ 250 mls/hr 1X ONCE IV ; Start 01/21/20 at 19:45; Stop 01/21/20 at 20:44; Status UNV Acetaminophen (Tylenol) 650 mg PRN Q6HRS PRN PO Headaches, Temp > 101.5'; Start 01/21/20 at 19:45 Ondansetron HCl (Zofran) 4 mg PRN Q6HRS PRN IVP NAUSEA/VOMITING; Start 01/21/20 at 19:45 Al Hydroxide/Mg Hydroxide (Mylanta Plus Xs) 30 ml PRN Q3HRS PRN PO HEARTBURN / GAS; Start 01/21/20 at 19:45 Famotidine (Pepcid) 20 mg BID PO Last administered on 01/23/20at 09:09; Start 01/21/20 at 21:00 Enoxaparin Sodium (Lovenox 40mg Syringe) 40 mg Q24H SQ Last administered on 01/21/20at 21:07; Start 01/21/20 at 20:00; Stop 01/22/20 at 10:45; Status DC Sodium Chloride (Normal Saline Flush) 3 ml QSHIFT PRN IV AFTER MEDS AND BLOOD DRAWS; Start 01/21/20 at 19:45 Senna/Docusate Sodium (Senna Plus) 1 tab BID PO Last administered on 01/23/20at 09:09; Start 01/21/20 at 21:00 Magnesium Hydroxide (Milk Of Magnesia) 2,400 mg PRN Q12HR PRN PO CONSTIPATION; Start 01/21/20 at 19:45 Sterile Water (WATER for RESP) 1,000 ml CONT PRN INH VIA VAPOTHERM DEVICE Last administered on 01/22/20at 11:33; Start 01/22/20 at 04:30 Lactobacillus Rhamnosus (Culturelle) 1 cap BID PO Last administered on 01/23/20at 09:09; Start 01/22/20 at 09:00 Non-Formulary Medication 1 ea/ Sodium Chloride 210 ml @ 420 mls/hr ONCE ONCE IV Last administered on 01/22/20at 10:44; Start 01/22/20 at 11:00; Stop 01/22/20 at 11:29; Status DC Non-Formulary Medication 1 ea/ Sodium Chloride 230 ml @ 460 mls/hr DAILY IV ; Start 01/23/20 at 09:00; Stop 01/26/20 at 09:29 Enoxaparin Sodium (Lovenox 40mg Syringe) 40 mg BID SQ Last administered on 01/23/20at 09:09; Start 01/22/20 at 11:00 Active Scripts Active Keflex (Cephalexin) 500 Mg Capsule 500 Mg PO QID 10 Days [place] 5-325 Tablet (Acetaminophen/Hydrocodone Bitart) 1 Each Tablet 1 Tab PO PRN Q6HRS PRN Vitals/I & O Vital Sign - Last 24 Hours 01/22/20 01/22/20 01/22/20 01/22/20 10:00 11:00 11:33 12:00 Pulse 64 67 Resp 34 34 B/P (MAP) 108/55 (72) 113/66 (82) Pulse Ox 90 94 93 O2 Delivery High Flow Nasal Cannula High Flow Nasal Cannula High Flow Nasal Cannula O2 Flow Rate 40.0 40.0 40.0 40.0 01/22/20 01/22/20 01/22/20 01/22/20 12:00 13:00 14:00 15:00 Temp 97.9 97.9 Pulse 54 63 62 64 Resp 32 30 28 30 B/P (MAP) 123/66 (85) 116/58 (77) 129/69 (89) 104/73 (83) Pulse Ox 94 94 93 94 O2 Delivery High Flow Nasal Cannula High Flow Nasal Cannula High Flow Nasal Cannula High Flow Nasal Cannula O2 Flow Rate 40.0 40.0 40.0 40.0 01/22/20 01/22/20 01/22/20 01/22/20 15:55 16:00 16:00 17:00 Temp 97.9 97.9 Pulse 56 56 Resp 36 39 B/P (MAP) 119/61 (80) 121/62 (81) Pulse Ox 91 96 98 O2 Delivery High Flow Nasal Cannula High Flow Nasal Cannula High Flow Nasal Cannula O2 Flow Rate 40.0 40.0 40.0 40.0 01/22/20 01/22/20 01/22/20 01/22/20 18:00 19:00 20:00 20:00 Temp 98.0 98.0 Pulse 65 69 63 Resp 28 19 29 B/P (MAP) 120/60 (80) 112/64 (80) 123/78 (93) Pulse Ox 91 90 90 O2 Delivery High Flow Nasal Cannula High Flow Nasal Cannula High Flow Nasal Cannula O2 Flow Rate 40.0 40.0 40.0 40.0 01/22/20 01/22/20 01/22/20 01/22/20 20:21 21:00 22:00 23:00 Pulse 70 68 65 Resp 19 B/P (MAP) 108/51 (70) 122/74 (90) 123/73 (90) Pulse Ox 89 92 91 90 O2 Delivery High Flow Nasal Cannula High Flow Nasal Cannula High Flow Nasal C annula High Flow Nasal Cannula O2 Flow Rate 40.0 40.0 40.0 40.0 01/22/20 01/22/20 01/23/20 01/23/20 23:59 23:59 00:28 01:00 Temp 98.5 98.5 Pulse 65 62 Resp 19 B/P (MAP) 116/64 (81) 114/62 (79) Pulse Ox 90 92 90 O2 Delivery High Flow Nasal Cannula High Flow Nasal Cannula High Flow Nasal Cannula O2 Flow Rate 40.0 40.0 40.0 40.0 01/23/20 01/23/20 01/23/20 01/23/20 02:00 03:00 04:00 04:00 Temp 97.8 97.8 Pulse 65 60 66 Resp 22 B/P (MAP) 118/68 (85) 119/66 (83) 144/78 (100) Pulse Ox 90 95 90 O2 Delivery High Flow Nasal Cannula High Flow Nasal Cannula High Flow Nasal Cannula O2 Flow Rate 40.0 40.0 40.0 40.0 01/23/20 01/23/20 01/23/20 01/23/20 04:41 05:00 05:56 07:00 Pulse 55 64 68 Resp 19 B/P (MAP) 116/59 (78) 119/64 (82) 120/64 (82) Pulse Ox 93 91 94 88 O2 Delivery High Flow Nasal Cannula High Flow Nasal Cannula High Flow Nasal Cannula High Flow Nasal Cannula O2 Flow Rate 40.0 40.0 40.0 40.0 01/23/20 09:03 Pulse Ox 92 O2 Delivery Vapotherm HHFNC O2 Flow Rate 40.0 Intake and Output 0 01/22/20 01/22/20 01/23/20 15:00 23:00 07:00 Intake Total 1320 ml 1165 ml 1589 ml Output Total 750 ml 0 ml 1 ml Balance 570 ml 1165 ml 1588 ml JORDY FLORIAN MD Jan 23, 2020 09:35
[2020-01-23] MEDS: NON FORMULARY ITEM 1 EA in IV NORMAL SALINE 250ML 230 ML IV SCH (09:50)
--- NOTE | 2020-01-23 10:35 | PDOC ---
PULMONARY PROGRESS NOTES Subjective Patient not more short of Vitals Vital Signs Date Time Temp Pulse Resp B/P (MAP) Pulse Ox O2 Delivery O2 Flow Rate FiO2 01/23/20 09:03 92 Vapotherm HHFNC 40.0 01/23/20 09:00 78 31 133/69 (90) 01/23/20 08:00 97.6 97.6 Lungs: Clear Cardiovascular: S2 Abdomen: Soft Neuro Exam: Alert Extremities: No Edema Skin: Warm Labs Laboratory Tests Test 01/21/20 16:27 01/21/20 16:36 01/22/20 05:00 01/23/20 07:15 O2 Saturation 93 % (92-99) Arterial Blood pH 7.50 (7.35-7.45) Arterial Blood pCO2 at Patient Temp 37 mmHg (35-46) Arterial Blood pO2 at Patient Temp 68 mmHg (75-108) Arterial Blood HCO3 28 mmol/L (21-28) Arterial Blood Base Excess 5 mmol/L (-3-3) FiO2 100% nrb White Blood Count 8.5 x10^3/uL (4.0-11.0) 16.5 x10^3/uL (4.0-11.0) Red Blood Count 4.15 x10^6/uL (3.50-5.40) 4.15 x10^6/uL (3.50-5.40) Hemoglobin 11.6 g/dL (12.0-15.5) 11.5 g/dL (12.0-15.5) Hematocrit 34.0 % (36.0-47.0) 34.4 % (36.0-47.0) Mean Corpuscular Volume 82 fL (79-100) 83 fL (79-100) Mean Corpuscular Hemoglobin 28 pg (25-35) 28 pg (25-35) Mean Corpuscular Hemoglobin Concent 34 g/dL (31-37) 33 g/dL (31-37) Red Cell Distribution Width 15.2 % (11.5-14.5) 15.2 % (11.5-14.5) Platelet Count 378 x10^3/uL (140-400) 439 x10^3/uL (140-400) Neutrophils (%) (Auto) 84 % (31-73) 94 % (31-73) Lymphocytes (%) (Auto) 10 % (24-48) 4 % (24-48) Monocytes (%) (Auto) 6 % (0-9) 2 % (0-9) Eosinophils (%) (Auto) 0 % (0-3) 0 % (0-3) Basophils (%) (Auto) 0 % (0-3) 0 % (0-3) Neutrophils # (Auto) 7.1 x10^3/uL (1.8-7.7) 15.4 x10^3/uL (1.8-7.7) Lymphocytes # (Auto) 0.9 x10^3/uL (1.0-4.8) 0.6 x10^3/uL (1.0-4.8) Monocytes # (Auto) 0.5 x10^3/uL (0.0-1.1) 0.4 x10^3/uL (0.0-1.1) Eosinophils # (Auto) 0.0 x10^3/uL (0.0-0.7) 0.0 x10^3/uL (0.0-0.7) Basophils # (Auto) 0.0 x10^3/uL (0.0-0.2) 0.0 x10^3/uL (0.0-0.2) D-Dimer (Shirley) 2.09 ug/mlFEU (0.00-0.50) Sodium Level 135 mmol/L (136-145) 141 mmol/L (136-145) Potassium Level 3.8 mmol/L (3.5-5.1) 4.0 mmol/L (3.5-5.1) Chloride Level 98 mmol/L (98-107) 105 mmol/L (98-107) Carbon Dioxide Level 29 mmol/L (21-32) 30 mmol/L (21-32) Anion Gap 8 (6-14) 6 (6-14) Blood Urea Nitrogen 9 mg/dL (7-20) 12 mg/dL (7-20) Creatinine 0.7 mg/dL (0.6-1.0) 0.8 mg/dL (0.6-1.0) Estimated GFR (Cockcroft-Gault) 90.9 77.9 BUN/Creatinine Ratio 13 (6-20) 15 (6-20) Glucose Level 96 mg/dL (70-99) 122 mg/dL (70-99) Calcium Level 7.8 mg/dL (8.5-10.1) 7.5 mg/dL (8.5-10.1) Ferritin 246 ng/mL (8-252) Total Bilirubin 0.4 mg/dL (0.2-1.0) 0.3 mg/dL (0.2-1.0) Aspartate Amino Transf (AST/SGOT) 42 U/L (15-37) 36 U/L (15-37) Alanine Aminotransferase (ALT/SGPT) 20 U/L (14-59) 23 U/L (14-59) Alkaline Phosphatase 76 U/L (46-116) 73 U/L (46-116) Lactate Dehydrogenase 626 U/L (81-234) C-Reactive Protein, Quantitative 101.3 mg/L (0-3.3) Total Protein 7.1 g/dL (6.4-8.2) 6.6 g/dL (6.4-8.2) Albumin 2.5 g/dL (3.4-5.0) 2.1 g/dL (3.4-5.0) Albumin/Globulin Ratio 0.5 (1.0-1.7) 0.5 (1.0-1.7) Nasal Screen MRSA (PCR) Negative (NEGATIVE) Segmented Neutrophils % 89 % (35-66) Band Neutrophils % 6 % (0-9) Lymphocytes % 3 % (24-48) Monocytes % 2 % (0-10) Nucleated Red Blood Cells 1 Platelet Estimate Increased (ADEQUATE) Large Platelets Occ Polychromasia Slight Laboratory Tests Test 01/23/20 07:15 White Blood Count 16.5 x10^3/uL (4.0-11.0) Red Blood Count 4.15 x10^6/uL (3.50-5.40) Hemoglobin 11.5 g/dL (12.0-15.5) Hematocrit 34.4 % (36.0-47.0) Mean Corpuscular Volume 83 fL (79-100) Mean Corpuscular Hemoglobin 28 pg (25-35) Mean Corpuscular Hemoglobin Concent 33 g/dL (31-37) Red Cell Distribution Width 15.2 % (11.5-14.5) Platelet Count 439 x10^3/uL (140-400) Neutrophils (%) (Auto) 94 % (31-73) Lymphocytes (%) (Auto) 4 % (24-48) Monocytes (%) (Auto) 2 % (0-9) Eosinophils (%) (Auto) 0 % (0-3) Basophils (%) (Auto) 0 % (0-3) Neutrophils # (Auto) 15.4 x10^3/uL (1.8-7.7) Lymphocytes # (Auto) 0.6 x10^3/uL (1.0-4.8) Monocytes # (Auto) 0.4 x10^3/uL (0.0-1.1) Eosinophils # (Auto) 0.0 x10^3/uL (0.0-0.7) Basophils # (Auto) 0.0 x10^3/uL (0.0-0.2) Segmented Neutrophils % 89 % (35-66) Band Neutrophils % 6 % (0-9) Lymphocytes % 3 % (24-48) Monocytes % 2 % (0-10) Nucleated Red Blood Cells 1 Platelet Estimate Increased (ADEQUATE) Large Platelets Occ Polychromasia Slight Sodium Level 141 mmol/L (136-145) Potassium Level 4.0 mmol/L (3.5-5.1) Chloride Level 105 mmol/L (98-107) Carbon Dioxide Level 30 mmol/L (21-32) Anion Gap 6 (6-14) Blood Urea Nitrogen 12 mg/dL (7-20) Creatinine 0.8 mg/dL (0.6-1.0) Estimated GFR (Cockcroft-Gault) 77.9 BUN/Creatinine Ratio 15 (6-20) Glucose Level 122 mg/dL (70-99) Calcium Level 7.5 mg/dL (8.5-10.1) Total Bilirubin 0.3 mg/dL (0.2-1.0) Aspartate Amino Transf (AST/SGOT) 36 U/L (15-37) Alanine Aminotransferase (ALT/SGPT) 23 U/L (14-59) Alkaline Phosphatase 73 U/L (46-116) Total Protein 6.6 g/dL (6.4-8.2) Albumin 2.1 g/dL (3.4-5.0) Albumin/Globulin Ratio 0.5 (1.0-1.7) Medications Active Scripts Medications Dose Route/Sig Max Daily Dose Days Date Category Keflex (Cephalexin) 500 Mg Capsule 500 Mg PO QID 10 06/20/18 Rx [place] 5-325 Tablet (Acetaminophen/Hydrocodone Bitart) 1 Each Tablet 1 Tab PO PRN Q6HRS PRN 06/20/18 Rx Impression . IMPRESSION: 1. Acute hypoxic respiratory failure secondary to COVID-19 pneumonia and sepsis. 2. Abnormal chest x-ray with bilateral patchy infiltrates compatible with COVID-19 pneumonia. 3. Underlying obesity. 4. Hypertension. Plan . RECOMMENDATIONS: 1. Continue with present Vapotherm at 100% FiO2 on 40 liters flow. 2. We will follow the clinical response to treatment. 3. Broad-spectrum antibiotics per ID. 4. Remdesivir per ID. 5. The patient declines plasma. 6. Continue dexamethasone. 7. We will follow the response to treatment. Discussed with RN. Labs reviewed, chart reviewed, and chest x-ray reviewed. LEIF COBB MD Jan 23, 2020 10:35
[2020-01-23] MEDS: STERILE WATER for RESP 1,000 ML BAG. INH PRN (12:46)
--- NOTE | 2020-01-23 13:26 | NUR ---
SS following up with discharge planning. SS reviewed pt chart and discussed with pt RN. Pt remains on Vapotherm at this time. Pt COVID19 positive. Pt on IV Rocephin and Azithromycin. Pt received plasma and decadron. SS will continue to follow for discharge planning.
[2020-01-23] MEDS: AZITHROMYCIN 500 MG in IV NORMAL SALINE 250ML 250 ML IV SCH (18:29)
[2020-01-23] MEDS: cefTRIAXone IV Push 1 GM VIAL. IVP SCH (20:00)
[2020-01-23 20:27] LABS: BASE EXCESS ABG -1 mmol/L (-3-3); CORRECTED PCO2 ABG 32 mmHg; CORRECTED PH ABG 7.45; CORRECTED PO2 ABG 54 mmHg; HCO3 ABG 21 mmol/L (21-28); PCO2 ABG 30 mmHg (35-46); SAT O2 ABG 83 % (92-99)
--- NOTE | 2020-01-23 20:40 | NUR ---
patient O2 stat at 82- abg drawn- results called to Dr. Mei. orders recieved Addendum: 01/24/20 at 0114 by KAHLIL GONSALVES RN [id number] noted increase fatque. [address] Mei -patient intubated
[2020-01-23 20:47] LABS: FIO2 ABG 100; PO2 ABG 50 mmHg (75-108)
[2020-01-23] MEDS: ACETAMINOPHEN 325 MG TABLET. PO PRN (21:12)
[2020-01-23] MEDS ORDERED: SUCCINYLCHOLINE 200 MG/10 ML VIAL. ONE (23:00)
[2020-01-23] MEDS ORDERED: ETOMIDATE 20 MG/10 ML VIAL. IV ONE (23:00)
[2020-01-23] MEDS: MIDAZOLAM 100mg/100ml NS BAG 100 ML IV PRN (23:17)
[2020-01-23] MEDS ORDERED: VECURONIUM BOLUS 10 MG VIAL. IV ONE ×2 (23:24→23:30)
--- NOTE | 2020-01-23 23:48 | RAD ---
EXAM: CHEST 1 VIEW History: ET tube placement COMPARISON: 01/21/2020 TECHNIQUE: Single portable radiograph of the chest Findings/ impression: The ET tube is identified trachea the level of the clavicles. The feeding tube is identified in the left midabdomen likely within the stomach. There is diffuse increased patchy airspace opacities identified in the bilateral lungs likely interstitial infiltrates or edema. Electronically signed by: Sid Patel MD (01/23/2020 11:45 PM) [id number]
[2020-01-24] VITALS (28 sets, daily range): BP systolic 52–171; BP diastolic 36–87
[2020-01-24 01:44] LABS: BASE EXCESS ABG -2 mmol/L (-3-3); HCO3 ABG 24 mmol/L (21-28); PCO2 ABG 47 mmHg (35-46); PO2 ABG 66 mmHg (75-108); SAT O2 ABG 89 % (92-99)
[2020-01-24 01:46] LABS: FIO2 ABG 100
[2020-01-24] MEDS: NOREPINEPHRINE VIAL 8 MG in IV DEXTROSE 5% 250 ML IV PRN ×2 (02:29→12:28)
[2020-01-24] MEDS: MIDAZOLAM 100mg/100ml NS BAG 100 ML IV PRN ×3 (03:54→15:26)
[2020-01-24 04:35] LABS: BASO # 0.1 x10^3/uL (0.0-0.2); BASO % 0 % (0-3); EOS % 0 % (0-3); HEMATOCRIT 37.2 % (36.0-47.0); LYMPH # 0.9 x10^3/uL (1.0-4.8); LYMPH % 3 % (24-48); MEAN CORPUSCULAR HEMOGLOBIN 27 pg (25-35); MEAN CORPUSCULAR HGB CONC 32 g/dL (31-37); MEAN CORPUSCULAR VOLUME 85 fL (79-100); MONO # 0.7 x10^3/uL (0.0-1.1); MONO % 2 % (0-9); NEUT % 94 % (31-73); PLATELET COUNT 565 x10^3/uL (140-400); RED BLOOD COUNT 4.38 x10^6/uL (3.50-5.40); RED CELL DISTRIBUTION WIDTH 15.8 % (11.5-14.5); WHITE BLOOD COUNT 27.6 x10^3/uL (4.0-11.0)
[2020-01-24] MEDS: VECURONIUM BOLUS 10 MG VIAL. IV PRN ×2 (04:55→15:40)
[2020-01-24 04:56] LABS: CALCIUM 7.6 mg/dL (8.5-10.1); CREATININE 1.1 mg/dL (0.6-1.0); POTASSIUM 4.7 mmol/L (3.5-5.1)
--- NOTE | 2020-01-24 07:42 | PDOC ---
Infectious Disease Note Subjective Subjective Patient required intubation last night ROS ROS No nausea vomiting diarrhea or fever Vital Sign Vital Signs Vital Signs Date Time Temp Pulse Resp B/P (MAP) Pulse Ox O2 Delivery O2 Flow Rate FiO2 01/24/20 06:00 81 29 119/67 (84) 99 Ventilator 01/24/20 05:10 40.0 01/24/20 04:00 99.1 99.1 Physical Exam PHYSICAL EXAM GENERAL: Orally intubated sedated on ventilator VITAL SIGNS: Stable HEENT: Both pupils are round and reacting. No conjunctival lesion, no lesion in the mouth. NECK: Supple, no JVP, no lymphadenopathy. LUNGS: Clear. HEART: S1, S2 regular. ABDOMEN: Benign. EXTREMITIES: No edema or cyanosis. SKIN: Unremarkable. NEUROLOGIC: Sedated on a ventilator deficit. Labs Lab Laboratory Tests Test 01/23/20 20:24 01/24/20 01:34 01/24/20 04:00 O2 Saturation 83 % (92-99) 89 % (92-99) Arterial Blood pH 7.47 (7.35-7.45) 7.32 (7.35-7.45) Arterial Blood pH (Temp corrected) 7.45 Arterial Blood pCO2 at Patient Temp 30 mmHg (35-46) 47 mmHg (35-46) Arterial Blood pCO2 (Temp correct) 32 mmHg Arterial Blood pO2 at Patient Temp 50 mmHg (75-108) 66 mmHg (75-108) Arterial Blood pO2 (Temp corrected) 54 mmHg Arterial Blood HCO3 21 mmol/L (21-28) 24 mmol/L (21-28) Arterial Blood Base Excess -1 mmol/L (-3-3) -2 mmol/L (-3-3) FiO2 100 100 White Blood Count 27.6 x10^3/uL (4.0-11.0) Red Blood Count 4.38 x10^6/uL (3.50-5.40) Hemoglobin 12.0 g/dL (12.0-15.5) Hematocrit 37.2 % (36.0-47.0) Mean Corpuscular Volume 85 fL (79-100) Mean Corpuscular Hemoglobin 27 pg (25-35) Mean Corpuscular Hemoglobin Concent 32 g/dL (31-37) Red Cell Distribution Width 15.8 % (11.5-14.5) Platelet Count 565 x10^3/uL (140-400) Neutrophils (%) (Auto) 94 % (31-73) Lymphocytes (%) (Auto) 3 % (24-48) Monocytes (%) (Auto) 2 % (0-9) Eosinophils (%) (Auto) 0 % (0-3) Basophils (%) (Auto) 0 % (0-3) Neutrophils # (Auto) 26.0 x10^3/uL (1.8-7.7) Lymphocytes # (Auto) 0.9 x10^3/uL (1.0-4.8) Monocytes # (Auto) 0.7 x10^3/uL (0.0-1.1) Eosinophils # (Auto) 0.0 x10^3/uL (0.0-0.7) Basophils # (Auto) 0.1 x10^3/uL (0.0-0.2) Sodium Level 140 mmol/L (136-145) Potassium Level 4.7 mmol/L (3.5-5.1) Chloride Level 105 mmol/L (98-107) Carbon Dioxide Level 23 mmol/L (21-32) Anion Gap 12 (6-14) Blood Urea Nitrogen 15 mg/dL (7-20) Creatinine 1.1 mg/dL (0.6-1.0) Estimated GFR (Cockcroft-Gault) 54.0 Glucose Level 175 mg/dL (70-99) Calcium Level 7.6 mg/dL (8.5-10.1) Objective Assessment IMPRESSION: 1. Positive pneumonia from COVID-19. 2. Fever. 3. Hypoxemia. 4. Obesity. 5. Hypertension. Plan Plan of Care cont Remsidivir cont supportive care plasma given check bio markers BEKAH ALVA MD Jan 24, 2020 07:42
[2020-01-24] MEDS: SENNOSIDES/DOCUSATE 8.6/50MG TABLET. PO SCH ×2 (09:22→20:07)
[2020-01-24] MEDS: LACTOBACILLUS RHAMNOSUS GG 1 CAPSULE. PO SCH ×2 (09:22→20:06)
[2020-01-24] MEDS: DEXAMETHASONE SOD PHOS 4 MG/ML VIAL IVP SCH (09:22)
[2020-01-24] MEDS: FAMOTIDINE 20 MG TABLET. PO SCH ×2 (09:22→20:07)
[2020-01-24 09:30] LABS: BASE EXCESS ABG -4 mmol/L (-3-3); HCO3 ABG 20 mmol/L (21-28); PCO2 ABG 33 mmHg (35-46); PO2 ABG 75 mmHg (75-108); SAT O2 ABG 94 % (92-99)
--- NOTE | 2020-01-24 09:32 | PDOC ---
PULMONARY PROGRESS NOTES Subjective Patient did poorly yesterday, and last evening intubated Vitals Vital Signs Date Time Temp Pulse Resp B/P (MAP) Pulse Ox O2 Delivery O2 Flow Rate FiO2 01/24/20 09:22 90 Ventilator 01/24/20 06:00 81 29 119/67 (84) 01/24/20 05:10 40.0 01/24/20 04:00 99.1 99.1 Lungs: Clear Cardiovascular: S2 Abdomen: Soft Neuro Exam: Alert Extremities: No Edema Skin: Warm Labs Laboratory Tests Test 01/23/20 07:15 01/23/20 20:24 01/24/20 01:34 01/24/20 04:00 White Blood Count 16.5 x10^3/uL (4.0-11.0) 27.6 x10^3/uL (4.0-11.0) Red Blood Count 4.15 x10^6/uL (3.50-5.40) 4.38 x10^6/uL (3.50-5.40) Hemoglobin 11.5 g/dL (12.0-15.5) 12.0 g/dL (12.0-15.5) Hematocrit 34.4 % (36.0-47.0) 37.2 % (36.0-47.0) Mean Corpuscular Volume 83 fL (79-100) 85 fL (79-100) Mean Corpuscular Hemoglobin 28 pg (25-35) 27 pg (25-35) Mean Corpuscular Hemoglobin Concent 33 g/dL (31-37) 32 g/dL (31-37) Red Cell Distribution Width 15.2 % (11.5-14.5) 15.8 % (11.5-14.5) Platelet Count 439 x10^3/uL (140-400) 565 x10^3/uL (140-400) Neutrophils (%) (Auto) 94 % (31-73) 94 % (31-73) Lymphocytes (%) (Auto) 4 % (24-48) 3 % (24-48) Monocytes (%) (Auto) 2 % (0-9) 2 % (0-9) Eosinophils (%) (Auto) 0 % (0-3) 0 % (0-3) Basophils (%) (Auto) 0 % (0-3) 0 % (0-3) Neutrophils # (Auto) 15.4 x10^3/uL (1.8-7.7) 26.0 x10^3/uL (1.8-7.7) Lymphocytes # (Auto) 0.6 x10^3/uL (1.0-4.8) 0.9 x10^3/uL (1.0-4.8) Monocytes # (Auto) 0.4 x10^3/uL (0.0-1.1) 0.7 x10^3/uL (0.0-1.1) Eosinophils # (Auto) 0.0 x10^3/uL (0.0-0.7) 0.0 x10^3/uL (0.0-0.7) Basophils # (Auto) 0.0 x10^3/uL (0.0-0.2) 0.1 x10^3/uL (0.0-0.2) Segmented Neutrophils % 89 % (35-66) Band Neutrophils % 6 % (0-9) Lymphocytes % 3 % (24-48) Monocytes % 2 % (0-10) Nucleated Red Blood Cells 1 Platelet Estimate Increased (ADEQUATE) Large Platelets Occ Polychromasia Slight Sodium Level 141 mmol/L (136-145) 140 mmol/L (136-145) Potassium Level 4.0 mmol/L (3.5-5.1) 4.7 mmol/L (3.5-5.1) Chloride Level 105 mmol/L (98-107) 105 mmol/L (98-107) Carbon Dioxide Level 30 mmol/L (21-32) 23 mmol/L (21-32) Anion Gap 6 (6-14) 12 (6-14) Blood Urea Nitrogen 12 mg/dL (7-20) 15 mg/dL (7-20) Creatinine 0.8 mg/dL (0.6-1.0) 1.1 mg/dL (0.6-1.0) Estimated GFR (Cockcroft-Gault) 77.9 54.0 BUN/Creatinine Ratio 15 (6-20) Glucose Level 122 mg/dL (70-99) 175 mg/dL (70-99) Calcium Level 7.5 mg/dL (8.5-10.1) 7.6 mg/dL (8.5-10.1) Ferritin 162 ng/mL (8-252) Total Bilirubin 0.3 mg/dL (0.2-1.0) Aspartate Amino Transf (AST/SGOT) 36 U/L (15-37) Alanine Aminotransferase (ALT/SGPT) 23 U/L (14-59) Alkaline Phosphatase 73 U/L (46-116) Total Protein 6.6 g/dL (6.4-8.2) Albumin 2.1 g/dL (3.4-5.0) Albumin/Globulin Ratio 0.5 (1.0-1.7) O2 Saturation 83 % (92-99) 89 % (92-99) Arterial Blood pH 7.47 (7.35-7.45) 7.32 (7.35-7.45) Arterial Blood pH (Temp corrected) 7.45 Arterial Blood pCO2 at Patient Temp 30 mmHg (35-46) 47 mmHg (35-46) Arterial Blood pCO2 (Temp correct) 32 mmHg Arterial Blood pO2 at Patient Temp 50 mmHg (75-108) 66 mmHg (75-108) Arterial Blood pO2 (Temp corrected) 54 mmHg Arterial Blood HCO3 21 mmol/L (21-28) 24 mmol/L (21-28) Arterial Blood Base Excess -1 mmol/L (-3-3) -2 mmol/L (-3-3) FiO2 100 100 Laboratory Tests Test 01/23/20 20:24 01/24/20 01:34 01/24/20 04:00 O2 Saturation 83 % (92-99) 89 % (92-99) Arterial Blood pH 7.47 (7.35-7.45) 7.32 (7.35-7.45) Arterial Blood pH (Temp corrected) 7.45 Arterial Blood pCO2 at Patient Temp 30 mmHg (35-46) 47 mmHg (35-46) Arterial Blood pCO2 (Temp correct) 32 mmHg Arterial Blood pO2 at Patient Temp 50 mmHg (75-108) 66 mmHg (75-108) Arterial Blood pO2 (Temp corrected) 54 mmHg Arterial Blood HCO3 21 mmol/L (21-28) 24 mmol/L (21-28) Arterial Blood Base Excess -1 mmol/L (-3-3) -2 mmol/L (-3-3) FiO2 100 100 White Blood Count 27.6 x10^3/uL (4.0-11.0) Red Blood Count 4.38 x10^6/uL (3.50-5.40) Hemoglobin 12.0 g/dL (12.0-15.5) Hematocrit 37.2 % (36.0-47.0) Mean Corpuscular Volume 85 fL (79-100) Mean Corpuscular Hemoglobin 27 pg (25-35) Mean Corpuscular Hemoglobin Concent 32 g/dL (31-37) Red Cell Distribution Width 15.8 % (11.5-14.5) Platelet Count 565 x10^3/uL (140-400) Neutrophils (%) (Auto) 94 % (31-73) Lymphocytes (%) (Auto) 3 % (24-48) Monocytes (%) (Auto) 2 % (0-9) Eosinophils (%) (Auto) 0 % (0-3) Basophils (%) (Auto) 0 % (0-3) Neutrophils # (Auto) 26.0 x10^3/uL (1.8-7.7) Lymphocytes # (Auto) 0.9 x10^3/uL (1.0-4.8) Monocytes # (Auto) 0.7 x10^3/uL (0.0-1.1) Eosinophils # (Auto) 0.0 x10^3/uL (0.0-0.7) Basophils # (Auto) 0.1 x10^3/uL (0.0-0.2) Sodium Level 140 mmol/L (136-145) Potassium Level 4.7 mmol/L (3.5-5.1) Chloride Level 105 mmol/L (98-107) Carbon Dioxide Level 23 mmol/L (21-32) Anion Gap 12 (6-14) Blood Urea Nitrogen 15 mg/dL (7-20) Creatinine 1.1 mg/dL (0.6-1.0) Estimated GFR (Cockcroft-Gault) 54.0 Glucose Level 175 mg/dL (70-99) Calcium Level 7.6 mg/dL (8.5-10.1) Medications Active Scripts Medications Dose Route/Sig Max Daily Dose Days Date Category Keflex (Cephalexin) 500 Mg Capsule 500 Mg PO QID 10 06/20/18 Rx [place] 5-325 Tablet (Acetaminophen/Hydrocodone Bitart) 1 Each Tablet 1 Tab PO PRN Q6HRS PRN 06/20/18 Rx Impression . IMPRESSION: 1. Acute hypoxic respiratory failure secondary to COVID-19 pneumonia and sepsis. 2. Abnormal chest x-ray with bilateral patchy infiltrates compatible with COVID-19 pneumonia. 3. Underlying obesity. 4. Hypertension. Plan . Patient intubated, continue assist control ventilation Antibiotics per ID Status post remsevere Status post plasma exchange Continue steroids Coag panel, if markedly elevated will consider utilizing full dose IV heparin Start IV fluids LEIF COBB MD Jan 24, 2020 09:32
[2020-01-24 09:36] LABS: FIO2 ABG 100
[2020-01-24] MEDS: ENOXAPARIN 40 MG/0.4 ML SYRINGE. SQ SCH ×2 (10:26→20:07)
--- NOTE | 2020-01-24 11:08 | RAD ---
PORTABLE CHEST 1V History: Reason: central line placement / Spl. Instructions: / History: Comparison: January 23, 2020 Findings: Right subclavian central line with tip projecting over the right atrium. Diffuse interstitial and alveolar opacities, unchanged. Small bilateral pleural effusions. Unchanged heart size. No pneumothorax. Stable endotracheal tube and enteric tube. Impression: 1. Interval placement right subclavian line. No pneumothorax. 2. Diffuse interstitial and alveolar opacities, unchanged. Electronically signed by: Jose Perez DO (01/24/2020 11:05 AM) [id number]
[2020-01-24] MEDS: NON FORMULARY ITEM 1 EA in IV NORMAL SALINE 250ML 230 ML IV SCH (11:30)
--- NOTE | 2020-01-24 12:27 | PDOC ---
PROGRESS NOTES Chief Complaint Chief Complaint Assessment/Plan ASSESSMENT Acute Hypoxic Respiratory Failure Secondary to COVID-PNA multifocal pulmonary infiltrates.// follow-up to resolution. Morbid Obesity HTN NORMOCYTIC ANEMIA severe protein-caloric malnutrition PLAN - CONT ICU given hypoxic resp failure on non-rebreather - check inflammatory markers: ESR, INC CRP, ferratin, LDH, d dimer - dexamethasone 6 mg IV daily - continue zithromax , Rocephin - ID consult for plasma and remdesevir considerations - pulm consult given hypoxia - dvt ppx: lovenox 40 MG BID - GI ppx: pepcid FULL CODE monitor in ICU given hypoxia she does not want plasma.PROTOCOL LOS greater than 2 midnights given resp failure, COVID PNA VTE Prophylaxis Ordered VTE Prophylaxis Devices: Yes VTE Pharmacological Prophylaxi: Yes History of Present Illness History of Present Illness 01/22 t max 99.6 01/23 No acute events reported overnight, case discussed with nursing staff patient in no acute distress continues with ventilatory support COVID-19 CRITERIA: The patient was evaluated during the global COVID-19 pandemic, and that diagnosis was suspected/considered upon their initial presentation. Their evaluation, treatment and testing was consistent with current guidelines for patients who present with complaints or symptoms that may be related to COVID-19. Justicifation of Admission Dx: Justicifation of Admission Dx: Justifications for Admission: Justification of Admission Dx: Yes Respiratory Failure: Severe Resp Distress Vitals Vitals Vital Signs Date Time Temp Pulse Resp B/P (MAP) Pulse Ox O2 Delivery O2 Flow Rate FiO2 01/24/20 11:13 28 Ventilator 01/24/20 11:00 89 111/61 (78) 90 01/24/20 08:00 97.4 97.4 01/24/20 05:10 40.0 Physical Exam Physical Exam GENERAL: Orally intubated sedated on ventilator VITAL SIGNS: Stable HEENT: Both pupils are round and reacting. No conjunctival lesion, no lesion in the mouth. NECK: Supple, no JVP, no lymphadenopathy. LUNGS: Clear. HEART: S1, S2 regular. ABDOMEN: Benign. EXTREMITIES: No edema or cyanosis. SKIN: Unremarkable. NEUROLOGIC: Sedated on a ventilator deficit. General: Oriented X3, Cooperative, mild distress Lungs: Clear Extremities: No clubbing, No cyanosis Labs LABS Laboratory Tests Test 01/23/20 20:24 01/24/20 01:34 01/24/20 04:00 01/24/20 09:20 O2 Saturation 83 % (92-99) 89 % (92-99) 94 % (92-99) Arterial Blood pH 7.47 (7.35-7.45) 7.32 (7.35-7.45) 7.41 (7.35-7.45) Arterial Blood pH (Temp corrected) 7.45 Arterial Blood pCO2 at Patient Temp 30 mmHg (35-46) 47 mmHg (35-46) 33 mmHg (35-46) Arterial Blood pCO2 (Temp correct) 32 mmHg Arterial Blood pO2 at Patient Temp 50 mmHg (75-108) 66 mmHg (75-108) 75 mmHg (75-108) Arterial Blood pO2 (Temp corrected) 54 mmHg Arterial Blood HCO3 21 mmol/L (21-28) 24 mmol/L (21-28) 20 mmol/L (21-28) Arterial Blood Base Excess -1 mmol/L (-3-3) -2 mmol/L (-3-3) -4 mmol/L (-3-3) FiO2 100 100 100 White Blood Count 27.6 x10^3/uL (4.0-11.0) Red Blood Count 4.38 x10^6/uL (3.50-5.40) Hemoglobin 12.0 g/dL (12.0-15.5) Hematocrit 37.2 % (36.0-47.0) Mean Corpuscular Volume 85 fL (79-100) Mean Corpuscular Hemoglobin 27 pg (25-35) Mean Corpuscular Hemoglobin Concent 32 g/dL (31-37) Red Cell Distribution Width 15.8 % (11.5-14.5) Platelet Count 565 x10^3/uL (140-400) Neutrophils (%) (Auto) 94 % (31-73) Lymphocytes (%) (Auto) 3 % (24-48) Monocytes (%) (Auto) 2 % (0-9) Eosinophils (%) (Auto) 0 % (0-3) Basophils (%) (Auto) 0 % (0-3) Neutrophils # (Auto) 26.0 x10^3/uL (1.8-7.7) Lymphocytes # (Auto) 0.9 x10^3/uL (1.0-4.8) Monocytes # (Auto) 0.7 x10^3/uL (0.0-1.1) Eosinophils # (Auto) 0.0 x10^3/uL (0.0-0.7) Basophils # (Auto) 0.1 x10^3/uL (0.0-0.2) Sodium Level 140 mmol/L (136-145) Potassium Level 4.7 mmol/L (3.5-5.1) Chloride Level 105 mmol/L (98-107) Carbon Dioxide Level 23 mmol/L (21-32) Anion Gap 12 (6-14) Blood Urea Nitrogen 15 mg/dL (7-20) Creatinine 1.1 mg/dL (0.6-1.0) Estimated GFR (Cockcroft-Gault) 54.0 Glucose Level 175 mg/dL (70-99) Calcium Level 7.6 mg/dL (8.5-10.1) Assessment and Plan Assessmemt and Plan Problems Medical Problems: (1) Pneumonia due to COVID-19 virus Status: Acute Comment Review of Relevant I have reviewed the following items stephon (where applicable) has been applied. Labs Laboratory Tests Test 01/23/20 07:15 01/23/20 20:24 01/24/20 01:34 01/24/20 04:00 White Blood Count 16.5 x10^3/uL (4.0-11.0) 27.6 x10^3/uL (4.0-11.0) Red Blood Count 4.15 x10^6/uL (3.50-5.40) 4.38 x10^6/uL (3.50-5.40) Hemoglobin 11.5 g/dL (12.0-15.5) 12.0 g/dL (12.0-15.5) Hematocrit 34.4 % (36.0-47.0) 37.2 % (36.0-47.0) Mean Corpuscular Volume 83 fL (79-100) 85 fL (79-100) Mean Corpuscular Hemoglobin 28 pg (25-35) 27 pg (25-35) Mean Corpuscular Hemoglobin Concent 33 g/dL (31-37) 32 g/dL (31-37) Red Cell Distribution Width 15.2 % (11.5-14.5) 15.8 % (11.5-14.5) Platelet Count 439 x10^3/uL (140-400) 565 x10^3/uL (140-400) Neutrophils (%) (Auto) 94 % (31-73) 94 % (31-73) Lymphocytes (%) (Auto) 4 % (24-48) 3 % (24-48) Monocytes (%) (Auto) 2 % (0-9) 2 % (0-9) Eosinophils (%) (Auto) 0 % (0-3) 0 % (0-3) Basophils (%) (Auto) 0 % (0-3) 0 % (0-3) Neutrophils # (Auto) 15.4 x10^3/uL (1.8-7.7) 26.0 x10^3/uL (1.8-7.7) Lymphocytes # (Auto) 0.6 x10^3/uL (1.0-4.8) 0.9 x10^3/uL (1.0-4.8) Monocytes # (Auto) 0.4 x10^3/uL (0.0-1.1) 0.7 x10^3/uL (0.0-1.1) Eosinophils # (Auto) 0.0 x10^3/uL (0.0-0.7) 0.0 x10^3/uL (0.0-0.7) Basophils # (Auto) 0.0 x10^3/uL (0.0-0.2) 0.1 x10^3/uL (0.0-0.2) Segmented Neutrophils % 89 % (35-66) Band Neutrophils % 6 % (0-9) Lymphocytes % 3 % (24-48) Monocytes % 2 % (0-10) Nucleated Red Blood Cells 1 Platelet Estimate Increased (ADEQUATE) Large Platelets Occ Polychromasia Slight Sodium Level 141 mmol/L (136-145) 140 mmol/L (136-145) Potassium Level 4.0 mmol/L (3.5-5.1) 4.7 mmol/L (3.5-5.1) Chloride Level 105 mmol/L (98-107) 105 mmol/L (98-107) Carbon Dioxide Level 30 mmol/L (21-32) 23 mmol/L (21-32) Anion Gap 6 (6-14) 12 (6-14) Blood Urea Nitrogen 12 mg/dL (7-20) 15 mg/dL (7-20) Creatinine 0.8 mg/dL (0.6-1.0) 1.1 mg/dL (0.6-1.0) Estimated GFR (Cockcroft-Gault) 77.9 54.0 BUN/Creatinine Ratio 15 (6-20) Glucose Level 122 mg/dL (70-99) 175 mg/dL (70-99) Calcium Level 7.5 mg/dL (8.5-10.1) 7.6 mg/dL (8.5-10.1) Ferritin 162 ng/mL (8-252) Total Bilirubin 0.3 mg/dL (0.2-1.0) Aspartate Amino Transf (AST/SGOT) 36 U/L (15-37) Alanine Aminotransferase (ALT/SGPT) 23 U/L (14-59) Alkaline Phosphatase 73 U/L (46-116) Total Protein 6.6 g/dL (6.4-8.2) Albumin 2.1 g/dL (3.4-5.0) Albumin/Globulin Ratio 0.5 (1.0-1.7) O2 Saturation 83 % (92-99) 89 % (92-99) Arterial Blood pH 7.47 (7.35-7.45) 7.32 (7.35-7.45) Arterial Blood pH (Temp corrected) 7.45 Arterial Blood pCO2 at Patient Temp 30 mmHg (35-46) 47 mmHg (35-46) Arterial Blood pCO2 (Temp correct) 32 mmHg Arterial Blood pO2 at Patient Temp 50 mmHg (75-108) 66 mmHg (75-108) Arterial Blood pO2 (Temp corrected) 54 mmHg Arterial Blood HCO3 21 mmol/L (21-28) 24 mmol/L (21-28) Arterial Blood Base Excess -1 mmol/L (-3-3) -2 mmol/L (-3-3) FiO2 100 100 Test 01/24/20 09:20 O2 Saturation 94 % (92-99) Arterial Blood pH 7.41 (7.35-7.45) Arterial Blood pCO2 at Patient Temp 33 mmHg (35-46) Arterial Blood pO2 at Patient Temp 75 mmHg (75-108) Arterial Blood HCO3 20 mmol/L (21-28) Arterial Blood Base Excess -4 mmol/L (-3-3) FiO2 100 Laboratory Tests Test 01/23/20 20:24 01/24/20 01:34 01/24/20 04:00 01/24/20 09:20 O2 Saturation 83 % (92-99) 89 % (92-99) 94 % (92-99) Arterial Blood pH 7.47 (7.35-7.45) 7.32 (7.35-7.45) 7.41 (7.35-7.45) Arterial Blood pH (Temp corrected) 7.45 Arterial Blood pCO2 at Patient Temp 30 mmHg (35-46) 47 mmHg (35-46) 33 mmHg (35-46) Arterial Blood pCO2 (Temp correct) 32 mmHg Arterial Blood pO2 at Patient Temp 50 mmHg (75-108) 66 mmHg (75-108) 75 mmHg (75-108) Arterial Blood pO2 (Temp corrected) 54 mmHg Arterial Blood HCO3 21 mmol/L (21-28) 24 mmol/L (21-28) 20 mmol/L (21-28) Arterial Blood Base Excess -1 mmol/L (-3-3) -2 mmol/L (-3-3) -4 mmol/L (-3-3) FiO2 100 100 100 White Blood Count 27.6 x10^3/uL (4.0-11.0) Red Blood Count 4.38 x10^6/uL (3.50-5.40) Hemoglobin 12.0 g/dL (12.0-15.5) Hematocrit 37.2 % (36.0-47.0) Mean Corpuscular Volume 85 fL (79-100) Mean Corpuscular Hemoglobin 27 pg (25-35) Mean Corpuscular Hemoglobin Concent 32 g/dL (31-37) Red Cell Distribution Width 15.8 % (11.5-14.5) Platelet Count 565 x10^3/uL (140-400) Neutrophils (%) (Auto) 94 % (31-73) Lymphocytes (%) (Auto) 3 % (24-48) Monocytes (%) (Auto) 2 % (0-9) Eosinophils (%) (Auto) 0 % (0-3) Basophils (%) (Auto) 0 % (0-3) Neutrophils # (Auto) 26.0 x10^3/uL (1.8-7.7) Lymphocytes # (Auto) 0.9 x10^3/uL (1.0-4.8) Monocytes # (Auto) 0.7 x10^3/uL (0.0-1.1) Eosinophils # (Auto) 0.0 x10^3/uL (0.0-0.7) Basophils # (Auto) 0.1 x10^3/uL (0.0-0.2) Sodium Level 140 mmol/L (136-145) Potassium Level 4.7 mmol/L (3.5-5.1) Chloride Level 105 mmol/L (98-107) Carbon Dioxide Level 23 mmol/L (21-32) Anion Gap 12 (6-14) Blood Urea Nitrogen 15 mg/dL (7-20) Creatinine 1.1 mg/dL (0.6-1.0) Estimated GFR (Cockcroft-Gault) 54.0 Glucose Level 175 mg/dL (70-99) Calcium Level 7.6 mg/dL (8.5-10.1) Medications Current Medications Acetaminophen (Tylenol) 1,000 mg 1X ONCE PO Last administered on 01/21/20at 17:00; Start 01/21/20 at 17:00; Stop 01/21/20 at 17:01; Status DC Ondansetron HCl (Zofran) 4 mg PRN Q8HRS PRN IV NAUSEA/VOMITING; Start 01/21/20 at 18:00; Stop 01/22/20 at 07:55; Status DC Dexamethasone Sodium Phosphate (Decadron) 6 mg 1X ONCE IVP Last administered on 01/21/20at 18:14; Start 01/21/20 at 18:00; Stop 01/21/20 at 18:01; Status DC Ceftriaxone Sodium (Rocephin) 1 gm 1X ONCE IVP Last administered on 01/21/20at 18:14; Start 01/21/20 at 18:00; Stop 01/21/20 at 18:01; Status DC Azithromycin 500 mg/Sodium Chloride 250 ml @ 250 mls/hr Q24H IV Last administered on 01/23/20at 18:29; Start 01/22/20 at 19:00 Azithromycin 250 ml @ 250 mls/hr 1X ONCE IV Last administered on 01/21/20at 18:25; Start 01/21/20 at 18:15; Stop 01/21/20 at 19:14; Status DC Dexamethasone Sodium Phosphate (Decadron) 6 mg DAILY IVP Last administered on 01/24/20at 09:22; Start 01/22/20 at 09:00 Ceftriaxone Sodium (Rocephin) 1 gm Q24H IVP Last administered on 01/23/20at 20:00; Start 01/22/20 at 20:00 Azithromycin 250 ml @ 250 mls/hr 1X ONCE IV ; Start 01/21/20 at 19:45; Stop 01/21/20 at 20:44; Status UNV Acetaminophen (Tylenol) 650 mg PRN Q6HRS PRN PO Headaches, Temp > 101.5' Last administered on 01/23/20at 21:12; Start 01/21/20 at 19:45 Ondansetron HCl (Zofran) 4 mg PRN Q6HRS PRN IVP NAUSEA/VOMITING; Start 01/21/20 at 19:45 Al Hydroxide/Mg Hydroxide (Mylanta Plus Xs) 30 ml PRN Q3HRS PRN PO HEARTBURN / GAS; Start 01/21/20 at 19:45 Famotidine (Pepcid) 20 mg BID PO Last administered on 01/24/20at 09:22; Start 01/21/20 at 21:00 Enoxaparin Sodium (Lovenox 40mg Syringe) 40 mg Q24H SQ Last administered on 01/21/20at 21:07; Start 01/21/20 at 20:00; Stop 01/22/20 at 10:45; Status DC Sodium Chloride (Normal Saline Flush) 3 ml QSHIFT PRN IV AFTER MEDS AND BLOOD DRAWS; Start 01/21/20 at 19:45 Senna/Docusate Sodium (Senna Plus) 1 tab BID PO Last administered on 01/24/20at 09:22; Start 01/21/20 at 21:00 Magnesium Hydroxide (Milk Of Magnesia) 2,400 mg PRN Q12HR PRN PO CONSTIPATION; Start 01/21/20 at 19:45 Sterile Water (WATER for RESP) 1,000 ml CONT PRN INH VIA VAPOTHERM DEVICE Last administered on 01/23/20at 12:46; Start 01/22/20 at 04:30 Lactobacillus Rhamnosus (Culturelle) 1 cap BID PO Last administered on 01/24/20at 09:22; Start 01/22/20 at 09:00 Non-Formulary Medication 1 ea/ Sodium Chloride 210 ml @ 420 mls/hr ONCE ONCE IV Last administered on 01/22/20at 10:44; Start 01/22/20 at 11:00; Stop 01/22/20 at 11:29; Status DC Non-Formulary Medication 1 ea/ Sodium Chloride 230 ml @ 460 mls/hr DAILY IV Last administered on 01/24/20at 11:30; Start 01/23/20 at 09:00; Stop 01/26/20 at 09:29 Enoxaparin Sodium (Lovenox 40mg Syringe) 40 mg BID SQ Last administered on 01/24/20at 10:26; Start 01/22/20 at 11:00 Lorazepam (Ativan Inj) 0.5 mg PRN Q4HRS PRN IVP ANXIETY / AGITATION; Start 01/23/20 at 21:00 Lorazepam (Ativan Inj) 0.05 mg 1X ONCE IVP Last administered on 01/23/20at 21:13; Start 01/23/20 at 21:15; Stop 01/23/20 at 21:31; Status DC Fentanyl Citrate 30 ml @ 0 mls/hr CONT PRN IV SEE PROTOCOL Last administered on 01/24/20at 11:13; Start 01/23/20 at 22:45 Propofol 100 ml @ 0 mls/hr CONT PRN IV SEE PROTOCOL; Start 01/23/20 at 22:45 Midazolam HCl 100 ml @ 0 mls/hr CONT PRN IV SEE PROTOCOL Last administered on 01/24/20at 10:26; Start 01/23/20 at 22:45 Vecuronium [place] (Norcuron Bolus) 10 mg STK-MED ONCE IV ; Start 01/23/20 at 23:24; Stop 01/23/20 at 23:25; Status DC Vecuronium [place] (Norcuron Bolus) 60 mg 1X ONCE IV Last administered on 01/23/20at 23:30; Start 01/23/20 at 23:30; Stop 01/23/20 at 23:35; Status DC Norepinephrine Bitartrate 8 mg/ Dextrose 258 ml @ 20.666 mls/ hr CONT PRN IV PER PROTOCOL Last administered on 01/24/20at 02:29; Start 01/24/20 at 02:15 Vecuronium [place] (Norcuron Bolus) 6 mg PRN Q4HRS PRN IV SEDATION Last administered on 01/24/20at 04:55; Start 01/24/20 at 04:30 Succinylcholine Chloride (Anectine) 200 mg STK-MED ONCE .ROUTE ; Start 01/23/20 at 23:00; Stop 01/24/20 at 08:24; Status DC Etomidate (Amidate) 20 mg STK-MED ONCE IV ; Start 01/23/20 at 23:00; Stop 01/24/20 at 08:24; Status DC Active Scripts Active Keflex (Cephalexin) 500 Mg Capsule 500 Mg PO QID 10 Days [place] 5-325 Tablet (Acetaminophen/Hydrocodone Bitart) 1 Each Tablet 1 Tab PO PRN Q6HRS PRN Vitals/I & O Vital Sign - Last 24 Hours 01/23/20 01/23/20 01/23/20 01/23/20 12:30 13:00 14:00 15:00 Pulse 86 87 84 Resp 29 36 34 B/P (MAP) 142/75 (97) 136/76 (96) 145/88 (107) Pulse Ox 88 85 85 85 O2 Delivery Vapotherm [facility] High Flow Nasal Cannula High Flow Nasal Cannula High Flow Nasal Cannula O2 Flow Rate 40.0 40.0 40.0 40.0 01/23/20 01/23/20 01/23/20 01/23/20 15:15 15:30 16:00 16:00 Temp 99.2 99.2 99.2 99.2 99.2 99.2 Pulse 91 94 90 Resp 36 40 40 B/P (MAP) 140/74 142/80 142/80 (100) Pulse Ox 89 O2 Delivery High Flow Nasal Cannula O2 Flow Rate 40.0 40.0 01/23/20 01/23/20 01/23/20 01/23/20 17:00 18:00 18:30 19:00 Pulse 95 88 89 Resp 39 B/P (MAP) 140/71 (94) 141/79 (99) 148/82 (104) Pulse Ox 80 81 87 81 O2 Delivery High Flow Nasal Cannula High Flow Nasal Cannula Vapotherm H[facility] High Flow Nasal Cannula O2 Flow Rate 40.0 40.0 40.0 40.0 01/23/20 01/23/20 01/23/20 01/23/20 20:00 20:00 20:12 21:00 Temp 100.7 100.7 Pulse 87 91 Resp 40 B/P (MAP) 160/86 (110) 160/91 (114) Pulse Ox 89 82 81 O2 Delivery High Flow Nasal Cannula Vapotherm HHFNC High Flow Nasal Cannula O2 Flow Rate 40.0 40.0 40.0 40.0 01/23/20 01/23/20 01/23/20 01/23/20 22:00 23:00 23:25 23:59 Pulse 85 95 109 Resp 40 44 B/P (MAP) 111/76 (88) 125/74 (91) 123/73 (90) Pulse Ox 81 78 88 90 O2 Delivery High Flow Nasal Cannula High Flow Nasal Cannula Ventilator Ventilator O2 Flow Rate 40.0 40.0 01/23/20 01/24/20 01/24/20 01/24/20 23:59 00:30 01:00 01:00 Temp 99.1 99.1 Pulse 108 101 Resp 40 25 B/P (MAP) 81/45 (57) 92/58 (69) Pulse Ox 90 95 O2 Delivery Mechanical Ventilator High Flow Nasal Cannula Ventilator Mechanical Ventilator 01/24/20 01/24/20 01/24/20 01/24/20 01:11 01:45 02:00 02:00 Pulse 92 85 84 Resp 28 28 28 B/P (MAP) 91/49 (63) /74 67/41 (50) Pulse Ox 88 90 95 90 O2 Delivery High Flow Nasal Cannula High Flow Nasal Cannula Ventilator O2 Flow Rate 40.0 01/24/20 01/24/20 01/24/20 01/24/20 02:15 02:30 02:45 03:00 Pulse 88 86 94 86 Resp 28 28 31 28 B/P (MAP) 63/36 (45) 71/41 (51) 134/79 (97) 102/59 (73) Pulse Ox 90 92 92 92 O2 Delivery Ventilator Ventilator Ventilator Ventilator 01/24/20 01/24/20 01/24/20 01/24/20 03:30 04:00 04:00 04:06 Temp 99.1 99.1 Pulse 92 74 Resp 31 28 B/P (MAP) 140/87 (104) 52/42 (45) Pulse Ox 89 89 95 O2 Delivery Ventilator Mechanical Ventilator Ventilator Ventilator 01/24/20 01/24/20 01/24/20 01/24/20 04:15 04:25 05:00 05:10 Pulse 98 87 Resp B/P (MAP) 140/82 (101) 123/74 (90) Pulse Ox 98 89 99 89 O2 Delivery Ventilator Ventilator O2 Flow Rate 40.0 40.0 01/24/20 01/24/20 01/24/20 01/24/20 06:00 07:00 08:00 08:00 Temp 97.4 97.4 Pulse 81 80 80 Resp 28 B/P (MAP) 119/67 (84) 135/81 (99) 82/47 (59) Pulse Ox 99 96 98 O2 Delivery Ventilator Ventilator Ventilator Mechanical Ventilator 01/24/20 01/24/20 01/24/20 01/24/20 09:00 09:22 10:00 11:00 Pulse 92 84 89 Resp 28 31 33 B/P (MAP) 153/71 (98) 68/38 (48) 111/61 (78) Pulse Ox 98 90 92 90 O2 Delivery Ventilator Ventilator Ventilator Ventilator 01/24/20 11:13 O2 Delivery Ventilator Intake and Output 01/23/20 01/23/20 01/24/20 15:00 23:00 07:00 Intake Total 840 ml 660 ml 160 ml Output Total 1400 ml 825 ml 700 ml Balance -560 ml -165 ml -540 ml SHARAD HUTCHINS MD Jan 24, 2020 12:27
[2020-01-24] MEDS: IV RINGERS,LACTATED 1000ML 1,000 ML IV SCH ×2 (13:52→19:24)
--- NOTE | 2020-01-24 14:39 | NUR ---
SS following up with discharge planning. SS reviewed pt chart and discussed with pt RN. Pt is currently on the vent. Pt COVID19 positive. Pt on IV Rocephin, Azithromycin, and Remdisvir. SS will continue to follow for discharge planning.
[2020-01-24 15:14] LABS: D-DIMER 8.22 ug/mlFEU (0.00-0.50)
[2020-01-24] MEDS: ACETAMINOPHEN 325 MG TABLET. PO PRN (16:44)
[2020-01-24] MEDS: AZITHROMYCIN 500 MG in IV NORMAL SALINE 250ML 250 ML IV SCH (19:23)
[2020-01-24] MEDS: cefTRIAXone IV Push 1 GM VIAL. IVP SCH (20:06)
[2020-01-25] VITALS (23 sets, daily range): BP systolic 97–161; BP diastolic 45–82
[2020-01-25] MEDS: MIDAZOLAM 100mg/100ml NS BAG 100 ML IV PRN ×3 (01:34→22:46)
[2020-01-25 06:11] LABS: BASO % 0 % (0-3); EOS % 0 % (0-3); HEMATOCRIT 33.6 % (36.0-47.0); HEMOGLOBIN 10.9 g/dL (12.0-15.5); LYMPH # 0.5 x10^3/uL (1.0-4.8); LYMPH % 4 % (24-48); MEAN CORPUSCULAR HEMOGLOBIN 28 pg (25-35); MEAN CORPUSCULAR HGB CONC 32 g/dL (31-37); MEAN CORPUSCULAR VOLUME 86 fL (79-100); MONO # 0.5 x10^3/uL (0.0-1.1); MONO % 3 % (0-9); NEUT # 12.2 x10^3/uL (1.8-7.7); NEUT % 93 % (31-73); PLATELET COUNT 498 x10^3/uL (140-400); RED BLOOD COUNT 3.93 x10^6/uL (3.50-5.40); RED CELL DISTRIBUTION WIDTH 15.5 % (11.5-14.5); WHITE BLOOD COUNT 13.1 x10^3/uL (4.0-11.0)
[2020-01-25 06:25] LABS: CALCIUM 6.8 mg/dL (8.5-10.1); CREATININE 0.7 mg/dL (0.6-1.0); GFR 90.9; POTASSIUM 5.3 mmol/L (3.5-5.1)
--- NOTE | 2020-01-25 07:24 | RAD ---
Single view chest dated 01/25/2020. Comparison made to 01/24/2020. Clinical indication: ET tube placement. FINDINGS: 2 upright portable images submitted. Endotracheal tube with tip approximately 3.8 cm above the level of kami. There is an NG tube with tip not included on the study but crossing the GE junction. Heart size is mildly enlarged, stable. Widespread airspace disease, similar given differences in technique. There is some consolidation at the retrocardiac left base with possible small left pleural effusion. No pneumothorax. A right subclavian central catheter remains in place, unchanged. IMPRESSION: 1. Widespread airspace disease, not significantly changed. 2. Stable position of tubes and lines. Electronically signed by: Kip Augustin MD (01/25/2020 7:21 AM) [id number]
[2020-01-25 08:28] LABS: BASE EXCESS ABG -3 mmol/L (-3-3); HCO3 ABG 21 mmol/L (21-28); PCO2 ABG 33 mmHg (35-46); PO2 ABG 89 mmHg (75-108); SAT O2 ABG 96 % (92-99)
[2020-01-25 08:35] LABS: FIO2 ABG 90
--- NOTE | 2020-01-25 08:37 | PDOC ---
Infectious Disease Note Subjective: Subjective Patient intubated/sedated Temperature pattern improved Vital Signs: Vital Signs Vital Signs Date Time Temp Pulse Resp B/P (MAP) Pulse Ox O2 Delivery O2 Flow Rate FiO2 01/25/20 08:00 99.7 57 29 150/68 (95) 98 Ventilator 99.7 Physical Exam: PHYSICAL EXAM GENERAL: Orally intubated sedated on ventilator VITAL SIGNS: Stable HEENT: Both pupils are round and reacting. No conjunctival lesion, no lesion in the mouth. NECK: Supple, no JVP, no lymphadenopathy. LUNGS: Clear. HEART: S1, S2 regular. ABDOMEN: Benign. EXTREMITIES: No edema or cyanosis. SKIN: Unremarkable. NEUROLOGIC: Sedated on a ventilator deficit. Medications: Inpatient Meds: Current Medications Medications (Trade) Dose Ordered Sig/Wei Start Time Stop Time Status Last Admin Dose Admin Acetaminophen (Tylenol) 650 mg PRN Q6HRS PRN 01/21/20 19:45 01/24/20 16:44 650 MG Al Hydroxide/Mg Hydroxide (Mylanta Plus Xs) 30 ml PRN Q3HRS PRN 01/21/20 19:45 Azithromycin 250 ml @ 250 mls/hr 1X ONCE 01/21/20 19:45 01/21/20 20:44 UNV Azithromycin 500 mg/Sodium Chloride 250 ml @ 250 mls/hr Q24H 01/22/20 19:00 01/24/20 19:23 250 MLS/HR Ceftriaxone Sodium (Rocephin) 1 gm Q24H 01/22/20 20:00 01/24/20 20:06 1 GM Dexamethasone Sodium Phosphate (Decadron) 6 mg DAILY 01/22/20 09:00 01/24/20 09:22 6 MG Enoxaparin Sodium (Lovenox 40mg Syringe) 40 mg BID 01/22/20 11:00 01/24/20 20:07 40 MG Etomidate (Amidate) 20 mg STK-MED ONCE 01/23/20 23:00 01/24/20 08:24 DC Famotidine (Pepcid) 20 mg BID 01/21/20 21:00 01/24/20 20:07 20 MG Fentanyl Citrate 30 ml @ 0 mls/hr CONT PRN 01/23/20 22:45 01/25/20 03:25 3.75 MLS/HR Lactobacillus Rhamnosus (Culturelle) 1 cap BID 01/22/20 09:00 01/24/20 20:06 1 CAP Lorazepam (Ativan Inj) 0.05 mg 1X ONCE 01/23/20 21:15 01/23/20 21:31 DC 01/23/20 21:13 0.05 MG Magnesium Hydroxide (Milk Of Magnesia) 2,400 mg PRN Q12HR PRN 01/21/20 19:45 Midazolam HCl 100 ml @ 0 mls/hr CONT PRN 01/23/20 22:45 01/25/20 01:34 10 MLS/HR Non-Formulary Medication 1 ea/ Sodium Chloride 230 ml @ 460 mls/hr DAILY 01/23/20 09:00 01/26/20 09:29 01/24/20 11:30 460 MLS/HR Norepinephrine Bitartrate 8 mg/ Dextrose 258 ml @ 20.666 mls/ hr CONT PRN 01/24/20 02:15 01/24/20 12:28 10.333 MLS/HR Ondansetron HCl (Zofran) 4 mg PRN Q6HRS PRN 01/21/20 19:45 Propofol 100 ml @ 0 mls/hr CONT PRN 01/23/20 22:45 Ringer's Solution 1,000 ml @ 75 mls/hr [id number] 01/24/20 12:30 01/24/20 19:24 75 MLS/HR Senna/Docusate Sodium (Senna Plus) 1 tab BID 01/21/20 21:00 01/24/20 20:07 1 TAB Sodium Chloride (Normal Saline Flush) 3 ml QSHIFT PRN 01/21/20 19:45 Sterile Water (WATER for RESP) 1,000 ml CONT PRN 01/22/20 04:30 01/23/20 12:46 1,000 ML Succinylcholine Chloride (Anectine) 200 mg STK-MED ONCE 01/23/20 23:00 01/24/20 08:24 DC Vecuronium [place] (Norcuron Bolus) 6 mg PRN Q4HRS PRN 01/24/20 04:30 01/24/20 15:40 6 MG Labs: Lab Laboratory Tests Test 01/24/20 09:20 01/24/20 14:40 01/25/20 05:25 01/25/20 06:00 O2 Saturation 94 % (92-99) Arterial Blood pH 7.41 (7.35-7.45) Arterial Blood pCO2 at Patient Temp 33 mmHg (35-46) Arterial Blood pO2 at Patient Temp 75 mmHg (75-108) Arterial Blood HCO3 20 mmol/L (21-28) Arterial Blood Base Excess -4 mmol/L (-3-3) FiO2 100 Fibrinogen 608 mg/dL (200-440) D-Dimer (Shirley) 8.22 ug/mlFEU (0.00-0.50) C-Reactive Protein, Quantitative 161.3 mg/L (0-3.3) Sodium Level 143 mmol/L (136-145) Potassium Level 5.3 mmol/L (3.5-5.1) Chloride Level 109 mmol/L (98-107) Carbon Dioxide Level 25 mmol/L (21-32) Anion Gap 9 (6-14) Blood Urea Nitrogen 16 mg/dL (7-20) Creatinine 0.7 mg/dL (0.6-1.0) Estimated GFR (Cockcroft-Gault) 90.9 Glucose Level 153 mg/dL (70-99) Calcium Level 6.8 mg/dL (8.5-10.1) White Blood Count 13.1 x10^3/uL (4.0-11.0) Red Blood Count 3.93 x10^6/uL (3.50-5.40) Hemoglobin 10.9 g/dL (12.0-15.5) Hematocrit 33.6 % (36.0-47.0) Mean Corpuscular Volume 86 fL (79-100) Mean Corpuscular Hemoglobin 28 pg (25-35) Mean Corpuscular Hemoglobin Concent 32 g/dL (31-37) Red Cell Distribution Width 15.5 % (11.5-14.5) Platelet Count 498 x10^3/uL (140-400) Neutrophils (%) (Auto) 93 % (31-73) Lymphocytes (%) (Auto) 4 % (24-48) Monocytes (%) (Auto) 3 % (0-9) Eosinophils (%) (Auto) 0 % (0-3) Basophils (%) (Auto) 0 % (0-3) Neutrophils # (Auto) 12.2 x10^3/uL (1.8-7.7) Lymphocytes # (Auto) 0.5 x10^3/uL (1.0-4.8) Monocytes # (Auto) 0.5 x10^3/uL (0.0-1.1) Eosinophils # (Auto) 0.0 x10^3/uL (0.0-0.7) Basophils # (Auto) 0.0 x10^3/uL (0.0-0.2) Objective: Assessment: COVID 19 infection -Status post plasma and Remdesivir treatment -CRP 163 ( 101) Pneumonia from COVID-19. Fever. Improving Hypoxemia. Obesity. Hypertension. Plan: Plan of Care cont Remsidivir cont supportive care plasma given cont azithromycin and rocephin 01/21 Discussed with nursing staff REESE ALVA MD Jan 25, 2020 08:37
[2020-01-25] MEDS: DEXAMETHASONE SOD PHOS 4 MG/ML VIAL IVP SCH (08:51)
[2020-01-25] MEDS: LACTOBACILLUS RHAMNOSUS GG 1 CAPSULE. PO SCH ×2 (08:51→20:45)
[2020-01-25] MEDS: SENNOSIDES/DOCUSATE 8.6/50MG TABLET. PO SCH ×2 (08:51→20:45)
[2020-01-25] MEDS: FAMOTIDINE 20 MG TABLET. PO SCH ×2 (08:51→20:45)
[2020-01-25] MEDS: ENOXAPARIN 40 MG/0.4 ML SYRINGE. SQ SCH ×2 (08:52→20:46)
[2020-01-25] MEDS: NON FORMULARY ITEM 1 EA in IV NORMAL SALINE 250ML 230 ML IV SCH (09:17)
--- NOTE | 2020-01-25 12:28 | PDOC ---
PULMONARY PROGRESS NOTES Subjective Intubated 01/24/20 remains in A/C mode sedated 80% and PEEP of 12 nursing reports no overnight concerns Vitals Vital Signs Date Time Temp Pulse Resp B/P (MAP) Pulse Ox O2 Delivery O2 Flow Rate FiO2 01/25/20 11:49 95 Ventilator 01/25/20 11:00 54 27 126/63 (84) 01/25/20 08:00 99.7 99.7 Comments ros unable to obtain sedated on vent Visual exam performed due to COVID-19 pandemic Patient appears to be comfortable in sync with the ventilator, no significant Labs Laboratory Tests Test 01/23/20 20:24 01/24/20 01:34 01/24/20 04:00 01/24/20 09:20 O2 Saturation 83 % (92-99) 89 % (92-99) 94 % (92-99) Arterial Blood pH 7.47 (7.35-7.45) 7.32 (7.35-7.45) 7.41 (7.35-7.45) Arterial Blood pH (Temp corrected) 7.45 Arterial Blood pCO2 at Patient Temp 30 mmHg (35-46) 47 mmHg (35-46) 33 mmHg (35-46) Arterial Blood pCO2 (Temp correct) 32 mmHg Arterial Blood pO2 at Patient Temp 50 mmHg (75-108) 66 mmHg (75-108) 75 mmHg (75-108) Arterial Blood pO2 (Temp corrected) 54 mmHg Arterial Blood HCO3 21 mmol/L (21-28) 24 mmol/L (21-28) 20 mmol/L (21-28) Arterial Blood Base Excess -1 mmol/L (-3-3) -2 mmol/L (-3-3) -4 mmol/L (-3-3) FiO2 100 100 100 White Blood Count 27.6 x10^3/uL (4.0-11.0) Red Blood Count 4.38 x10^6/uL (3.50-5.40) Hemoglobin 12.0 g/dL (12.0-15.5) Hematocrit 37.2 % (36.0-47.0) Mean Corpuscular Volume 85 fL (79-100) Mean Corpuscular Hemoglobin 27 pg (25-35) Mean Corpuscular Hemoglobin Concent 32 g/dL (31-37) Red Cell Distribution Width 15.8 % (11.5-14.5) Platelet Count 565 x10^3/uL (140-400) Neutrophils (%) (Auto) 94 % (31-73) Lymphocytes (%) (Auto) 3 % (24-48) Monocytes (%) (Auto) 2 % (0-9) Eosinophils (%) (Auto) 0 % (0-3) Basophils (%) (Auto) 0 % (0-3) Neutrophils # (Auto) 26.0 x10^3/uL (1.8-7.7) Lymphocytes # (Auto) 0.9 x10^3/uL (1.0-4.8) Monocytes # (Auto) 0.7 x10^3/uL (0.0-1.1) Eosinophils # (Auto) 0.0 x10^3/uL (0.0-0.7) Basophils # (Auto) 0.1 x10^3/uL (0.0-0.2) Sodium Level 140 mmol/L (136-145) Potassium Level 4.7 mmol/L (3.5-5.1) Chloride Level 105 mmol/L (98-107) Carbon Dioxide Level 23 mmol/L (21-32) Anion Gap 12 (6-14) Blood Urea Nitrogen 15 mg/dL (7-20) Creatinine 1.1 mg/dL (0.6-1.0) Estimated GFR (Cockcroft-Gault) 54.0 Glucose Level 175 mg/dL (70-99) Calcium Level 7.6 mg/dL (8.5-10.1) Ferritin 244 ng/mL (8-252) Test 01/24/20 14:40 01/25/20 05:25 01/25/20 06:00 01/25/20 08:20 Fibrinogen 608 mg/dL (200-440) D-Dimer (Shirley) 8.22 ug/mlFEU (0.00-0.50) C-Reactive Protein, Quantitative 161.3 mg/L (0-3.3) Sodium Level 143 mmol/L (136-145) Potassium Level 5.3 mmol/L (3.5-5.1) Chloride Level 109 mmol/L (98-107) Carbon Dioxide Level 25 mmol/L (21-32) Anion Gap 9 (6-14) Blood Urea Nitrogen 16 mg/dL (7-20) Creatinine 0.7 mg/dL (0.6-1.0) Estimated GFR (Cockcroft-Gault) 90.9 Glucose Level 153 mg/dL (70-99) Calcium Level 6.8 mg/dL (8.5-10.1) White Blood Count 13.1 x10^3/uL (4.0-11.0) Red Blood Count 3.93 x10^6/uL (3.50-5.40) Hemoglobin 10.9 g/dL (12.0-15.5) Hematocrit 33.6 % (36.0-47.0) Mean Corpuscular Volume 86 fL (79-100) Mean Corpuscular Hemoglobin 28 pg (25-35) Mean Corpuscular Hemoglobin Concent 32 g/dL (31-37) Red Cell Distribution Width 15.5 % (11.5-14.5) Platelet Count 498 x10^3/uL (140-400) Neutrophils (%) (Auto) 93 % (31-73) Lymphocytes (%) (Auto) 4 % (24-48) Monocytes (%) (Auto) 3 % (0-9) Eosinophils (%) (Auto) 0 % (0-3) Basophils (%) (Auto) 0 % (0-3) Neutrophils # (Auto) 12.2 x10^3/uL (1.8-7.7) Lymphocytes # (Auto) 0.5 x10^3/uL (1.0-4.8) Monocytes # (Auto) 0.5 x10^3/uL (0.0-1.1) Eosinophils # (Auto) 0.0 x10^3/uL (0.0-0.7) Basophils # (Auto) 0.0 x10^3/uL (0.0-0.2) O2 Saturation 96 % (92-99) Arterial Blood pH 7.41 (7.35-7.45) Arterial Blood pCO2 at Patient Temp 33 mmHg (35-46) Arterial Blood pO2 at Patient Temp 89 mmHg (75-108) Arterial Blood HCO3 21 mmol/L (21-28) Arterial Blood Base Excess -3 mmol/L (-3-3) FiO2 90 Laboratory Tests Test 01/24/20 14:40 01/25/20 05:25 01/25/20 06:00 01/25/20 08:20 Fibrinogen 608 mg/dL (200-440) D-Dimer (Shirley) 8.22 ug/mlFEU (0.00-0.50) C-Reactive Protein, Quantitative 161.3 mg/L (0-3.3) Sodium Level 143 mmol/L (136-145) Potassium Level 5.3 mmol/L (3.5-5.1) Chloride Level 109 mmol/L (98-107) Carbon Dioxide Level 25 mmol/L (21-32) Anion Gap 9 (6-14) Blood Urea Nitrogen 16 mg/dL (7-20) Creatinine 0.7 mg/dL (0.6-1.0) Estimated GFR (Cockcroft-Gault) 90.9 Glucose Level 153 mg/dL (70-99) Calcium Level 6.8 mg/dL (8.5-10.1) White Blood Count 13.1 x10^3/uL (4.0-11.0) Red Blood Count 3.93 x10^6/uL (3.50-5.40) Hemoglobin 10.9 g/dL (12.0-15.5) Hematocrit 33.6 % (36.0-47.0) Mean Corpuscular Volume 86 fL (79-100) Mean Corpuscular Hemoglobin 28 pg (25-35) Mean Corpuscular Hemoglobin Concent 32 g/dL (31-37) Red Cell Distribution Width 15.5 % (11.5-14.5) Platelet Count 498 x10^3/uL (140-400) Neutrophils (%) (Auto) 93 % (31-73) Lymphocytes (%) (Auto) 4 % (24-48) Monocytes (%) (Auto) 3 % (0-9) Eosinophils (%) (Auto) 0 % (0-3) Basophils (%) (Auto) 0 % (0-3) Neutrophils # (Auto) 12.2 x10^3/uL (1.8-7.7) Lymphocytes # (Auto) 0.5 x10^3/uL (1.0-4.8) Monocytes # (Auto) 0.5 x10^3/uL (0.0-1.1) Eosinophils # (Auto) 0.0 x10^3/uL (0.0-0.7) Basophils # (Auto) 0.0 x10^3/uL (0.0-0.2) O2 Saturation 96 % (92-99) Arterial Blood pH 7.41 (7.35-7.45) Arterial Blood pCO2 at Patient Temp 33 mmHg (35-46) Arterial Blood pO2 at Patient Temp 89 mmHg (75-108) Arterial Blood HCO3 21 mmol/L (21-28) Arterial Blood Base Excess -3 mmol/L (-3-3) FiO2 90 Medications Active Scripts Medications Dose Route/Sig Max Daily Dose Days Date Category Keflex (Cephalexin) 500 Mg Capsule 500 Mg PO QID 10 06/20/18 Rx [place] 5-325 Tablet (Acetaminophen/Hydrocodone Bitart) 1 Each Tablet 1 Tab PO PRN Q6HRS PRN 06/20/18 Rx Comments CXR IMPRESSION: 1. Widespread airspace disease, not significantly changed. 2. Stable position of tubes and lines. Impression . IMPRESSION: 1. Acute hypoxic respiratory failure secondary to COVID-19 pneumonia and sepsis. intubated 01/24/20 2. Abnormal chest x-ray with bilateral patchy infiltrates compatible with COVID-19 pneumonia. 3. Underlying obesity. 4. Hypertension 5. Hypotension Plan . Continue current A/C mode Peep 12 and Fi02 of 80%, follow ABG and CXR Antibiotics per ID Status post plasma exchange 01/22 Continue steroids Continue pressors to keep MAP above 65 D/W RN and RT LEIF COBB MD Jan 25, 2020 12:27
--- NOTE | 2020-01-25 14:01 | PDOC ---
PROGRESS NOTES Chief Complaint Chief Complaint Assessment/Plan ASSESSMENT Acute Hypoxic Respiratory Failure Secondary to COVID-PNA multifocal pulmonary infiltrates.// follow-up to resolution. Morbid Obesity HTN NORMOCYTIC ANEMIA severe protein-caloric malnutrition PLAN - CONT ICU given hypoxic resp failure on non-rebreather - check inflammatory markers: ESR, INC CRP, ferratin, LDH, d dimer - dexamethasone 6 mg IV daily - continue zithromax , Rocephin - ID consult for plasma and remdesevir considerations - pulm consult given hypoxia - dvt ppx: lovenox 40 MG BID - GI ppx: pepcid FULL CODE monitor in ICU given hypoxia she does not want plasma.PROTOCOL LOS greater than 2 midnights given resp failure, COVID PNA VTE Prophylaxis Ordered VTE Prophylaxis Devices: Yes VTE Pharmacological Prophylaxi: Yes History of Present Illness History of Present Illness 01/22 t max 99.6 01/23 No acute events reported overnight, case discussed with nursing staff patient in no acute distress continues with ventilatory support 01/24 Patient with no acute events reported overnight. No new complaints continues to have ventilatory support requirements. No concerns voiced by nursing staff COVID-19 CRITERIA: The patient was evaluated during the global COVID-19 pandemic, and that diagnosis was suspected/considered upon their initial presentation. Their evaluation, treatment and testing was consistent with current guidelines for patients who present with complaints or symptoms that may be related to COVID-19. Justicifation of Admission Dx: Justicifation of Admission Dx: Justifications for Admission: Justification of Admission Dx: Yes Respiratory Failure: Severe Resp Distress Vitals Vitals Vital Signs Date Time Temp Pulse Resp B/P (MAP) Pulse Ox O2 Delivery O2 Flow Rate FiO2 01/25/20 13:00 51 29 125/60 (81) 96 Ventilator 01/25/20 12:00 99.7 99.7 Physical Exam Physical Exam GENERAL: Orally intubated sedated on ventilator VITAL SIGNS: Stable HEENT: Both pupils are round and reacting. No conjunctival lesion, no lesion in the mouth. NECK: Supple, no JVP, no lymphadenopathy. LUNGS: Clear. HEART: S1, S2 regular. ABDOMEN: Benign. EXTREMITIES: No edema or cyanosis. SKIN: Unremarkable. NEUROLOGIC: Sedated on a ventilator deficit. General: Oriented X3, Cooperative, mild distress Extremities: No clubbing, No cyanosis Labs LABS Laboratory Tests Test 01/24/20 14:40 01/25/20 05:25 01/25/20 06:00 01/25/20 08:20 Fibrinogen 608 mg/dL (200-440) D-Dimer (Shirley) 8.22 ug/mlFEU (0.00-0.50) C-Reactive Protein, Quantitative 161.3 mg/L (0-3.3) Sodium Level 143 mmol/L (136-145) Potassium Level 5.3 mmol/L (3.5-5.1) Chloride Level 109 mmol/L (98-107) Carbon Dioxide Level 25 mmol/L (21-32) Anion Gap 9 (6-14) Blood Urea Nitrogen 16 mg/dL (7-20) Creatinine 0.7 mg/dL (0.6-1.0) Estimated GFR (Cockcroft-Gault) 90.9 Glucose Level 153 mg/dL (70-99) Calcium Level 6.8 mg/dL (8.5-10.1) White Blood Count 13.1 x10^3/uL (4.0-11.0) Red Blood Count 3.93 x10^6/uL (3.50-5.40) Hemoglobin 10.9 g/dL (12.0-15.5) Hematocrit 33.6 % (36.0-47.0) Mean Corpuscular Volume 86 fL (79-100) Mean Corpuscular Hemoglobin 28 pg (25-35) Mean Corpuscular Hemoglobin Concent 32 g/dL (31-37) Red Cell Distribution Width 15.5 % (11.5-14.5) Platelet Count 498 x10^3/uL (140-400) Neutrophils (%) (Auto) 93 % (31-73) Lymphocytes (%) (Auto) 4 % (24-48) Monocytes (%) (Auto) 3 % (0-9) Eosinophils (%) (Auto) 0 % (0-3) Basophils (%) (Auto) 0 % (0-3) Neutrophils # (Auto) 12.2 x10^3/uL (1.8-7.7) Lymphocytes # (Auto) 0.5 x10^3/uL (1.0-4.8) Monocytes # (Auto) 0.5 x10^3/uL (0.0-1.1) Eosinophils # (Auto) 0.0 x10^3/uL (0.0-0.7) Basophils # (Auto) 0.0 x10^3/uL (0.0-0.2) O2 Saturation 96 % (92-99) Arterial Blood pH 7.41 (7.35-7.45) Arterial Blood pCO2 at Patient Temp 33 mmHg (35-46) Arterial Blood pO2 at Patient Temp 89 mmHg (75-108) Arterial Blood HCO3 21 mmol/L (21-28) Arterial Blood Base Excess -3 mmol/L (-3-3) FiO2 90 Assessment and Plan Assessmemt and Plan Problems Medical Problems: (1) Pneumonia due to COVID-19 virus Status: Acute Comment Review of Relevant I have reviewed the following items stephon (where applicable) has been applied. Labs Laboratory Tests Test 01/23/20 20:24 01/24/20 01:34 01/24/20 04:00 01/24/20 09:20 O2 Saturation 83 % (92-99) 89 % (92-99) 94 % (92-99) Arterial Blood pH 7.47 (7.35-7.45) 7.32 (7.35-7.45) 7.41 (7.35-7.45) Arterial Blood pH (Temp corrected) 7.45 Arterial Blood pCO2 at Patient Temp 30 mmHg (35-46) 47 mmHg (35-46) 33 mmHg (35-46) Arterial Blood pCO2 (Temp correct) 32 mmHg Arterial Blood pO2 at Patient Temp 50 mmHg (75-108) 66 mmHg (75-108) 75 mmHg (75-108) Arterial Blood pO2 (Temp corrected) 54 mmHg Arterial Blood HCO3 21 mmol/L (21-28) 24 mmol/L (21-28) 20 mmol/L (21-28) Arterial Blood Base Excess -1 mmol/L (-3-3) -2 mmol/L (-3-3) -4 mmol/L (-3-3) FiO2 100 100 100 White Blood Count 27.6 x10^3/uL (4.0-11.0) Red Blood Count 4.38 x10^6/uL (3.50-5.40) Hemoglobin 12.0 g/dL (12.0-15.5) Hematocrit 37.2 % (36.0-47.0) Mean Corpuscular Volume 85 fL (79-100) Mean Corpuscular Hemoglobin 27 pg (25-35) Mean Corpuscular Hemoglobin Concent 32 g/dL (31-37) Red Cell Distribution Width 15.8 % (11.5-14.5) Platelet Count 565 x10^3/uL (140-400) Neutrophils (%) (Auto) 94 % (31-73) Lymphocytes (%) (Auto) 3 % (24-48) Monocytes (%) (Auto) 2 % (0-9) Eosinophils (%) (Auto) 0 % (0-3) Basophils (%) (Auto) 0 % (0-3) Neutrophils # (Auto) 26.0 x10^3/uL (1.8-7.7) Lymphocytes # (Auto) 0.9 x10^3/uL (1.0-4.8) Monocytes # (Auto) 0.7 x10^3/uL (0.0-1.1) Eosinophils # (Auto) 0.0 x10^3/uL (0.0-0.7) Basophils # (Auto) 0.1 x10^3/uL (0.0-0.2) Sodium Level 140 mmol/L (136-145) Potassium Level 4.7 mmol/L (3.5-5.1) Chloride Level 105 mmol/L (98-107) Carbon Dioxide Level 23 mmol/L (21-32) Anion Gap 12 (6-14) Blood Urea Nitrogen 15 mg/dL (7-20) Creatinine 1.1 mg/dL (0.6-1.0) Estimated GFR (Cockcroft-Gault) 54.0 Glucose Level 175 mg/dL (70-99) Calcium Level 7.6 mg/dL (8.5-10.1) Ferritin 244 ng/mL (8-252) Test 01/24/20 14:40 01/25/20 05:25 01/25/20 06:00 01/25/20 08:20 Fibrinogen 608 mg/dL (200-440) D-Dimer (Shirley) 8.22 ug/mlFEU (0.00-0.50) C-Reactive Protein, Quantitative 161.3 mg/L (0-3.3) Sodium Level 143 mmol/L (136-145) Potassium Level 5.3 mmol/L (3.5-5.1) Chloride Level 109 mmol/L (98-107) Carbon Dioxide Level 25 mmol/L (21-32) Anion Gap 9 (6-14) Blood Urea Nitrogen 16 mg/dL (7-20) Creatinine 0.7 mg/dL (0.6-1.0) Estimated GFR (Cockcroft-Gault) 90.9 Glucose Level 153 mg/dL (70-99) Calcium Level 6.8 mg/dL (8.5-10.1) White Blood Count 13.1 x10^3/uL (4.0-11.0) Red Blood Count 3.93 x10^6/uL (3.50-5.40) Hemoglobin 10.9 g/dL (12.0-15.5) Hematocrit 33.6 % (36.0-47.0) Mean Corpuscular Volume 86 fL (79-100) Mean Corpuscular Hemoglobin 28 pg (25-35) Mean Corpuscular Hemoglobin Concent 32 g/dL (31-37) Red Cell Distribution Width 15.5 % (11.5-14.5) Platelet Count 498 x10^3/uL (140-400) Neutrophils (%) (Auto) 93 % (31-73) Lymphocytes (%) (Auto) 4 % (24-48) Monocytes (%) (Auto) 3 % (0-9) Eosinophils (%) (Auto) 0 % (0-3) Basophils (%) (Auto) 0 % (0-3) Neutrophils # (Auto) 12.2 x10^3/uL (1.8-7.7) Lymphocytes # (Auto) 0.5 x10^3/uL (1.0-4.8) Monocytes # (Auto) 0.5 x10^3/uL (0.0-1.1) Eosinophils # (Auto) 0.0 x10^3/uL (0.0-0.7) Basophils # (Auto) 0.0 x10^3/uL (0.0-0.2) O2 Saturation 96 % (92-99) Arterial Blood pH 7.41 (7.35-7.45) Arterial Blood pCO2 at Patient Temp 33 mmHg (35-46) Arterial Blood pO2 at Patient Temp 89 mmHg (75-108) Arterial Blood HCO3 21 mmol/L (21-28) Arterial Blood Base Excess -3 mmol/L (-3-3) FiO2 90 Laboratory Tests Test 01/24/20 14:40 01/25/20 05:25 01/25/20 06:00 01/25/20 08:20 Fibrinogen 608 mg/dL (200-440) D-Dimer (Shirley) 8.22 ug/mlFEU (0.00-0.50) C-Reactive Protein, Quantitative 161.3 mg/L (0-3.3) Sodium Level 143 mmol/L (136-145) Potassium Level 5.3 mmol/L (3.5-5.1) Chloride Level 109 mmol/L (98-107) Carbon Dioxide Level 25 mmol/L (21-32) Anion Gap 9 (6-14) Blood Urea Nitrogen 16 mg/dL (7-20) Creatinine 0.7 mg/dL (0.6-1.0) Estimated GFR (Cockcroft-Gault) 90.9 Glucose Level 153 mg/dL (70-99) Calcium Level 6.8 mg/dL (8.5-10.1) White Blood Count 13.1 x10^3/uL (4.0-11.0) Red Blood Count 3.93 x10^6/uL (3.50-5.40) Hemoglobin 10.9 g/dL (12.0-15.5) Hematocrit 33.6 % (36.0-47.0) Mean Corpuscular Volume 86 fL (79-100) Mean Corpuscular Hemoglobin 28 pg (25-35) Mean Corpuscular Hemoglobin Concent 32 g/dL (31-37) Red Cell Distribution Width 15.5 % (11.5-14.5) Platelet Count 498 x10^3/uL (140-400) Neutrophils (%) (Auto) 93 % (31-73) Lymphocytes (%) (Auto) 4 % (24-48) Monocytes (%) (Auto) 3 % (0-9) Eosinophils (%) (Auto) 0 % (0-3) Basophils (%) (Auto) 0 % (0-3) Neutrophils # (Auto) 12.2 x10^3/uL (1.8-7.7) Lymphocytes # (Auto) 0.5 x10^3/uL (1.0-4.8) Monocytes # (Auto) 0.5 x10^3/uL (0.0-1.1) Eosinophils # (Auto) 0.0 x10^3/uL (0.0-0.7) Basophils # (Auto) 0.0 x10^3/uL (0.0-0.2) O2 Saturation 96 % (92-99) Arterial Blood pH 7.41 (7.35-7.45) Arterial Blood pCO2 at Patient Temp 33 mmHg (35-46) Arterial Blood pO2 at Patient Temp 89 mmHg (75-108) Arterial Blood HCO3 21 mmol/L (21-28) Arterial Blood Base Excess -3 mmol/L (-3-3) FiO2 90 Medications Current Medications Acetaminophen (Tylenol) 1,000 mg 1X ONCE PO Last administered on 01/21/20at 17:00; Start 01/21/20 at 17:00; Stop 01/21/20 at 17:01; Status DC Ondansetron HCl (Zofran) 4 mg PRN Q8HRS PRN IV NAUSEA/VOMITING; Start 01/21/20 at 18:00; Stop 01/22/20 at 07:55; Status DC Dexamethasone Sodium Phosphate (Decadron) 6 mg 1X ONCE IVP Last administered on 01/21/20at 18:14; Start 01/21/20 at 18:00; Stop 01/21/20 at 18:01; Status DC Ceftriaxone Sodium (Rocephin) 1 gm 1X ONCE IVP Last administered on 01/21/20at 18:14; Start 01/21/20 at 18:00; Stop 01/21/20 at 18:01; Status DC Azithromycin 500 mg/Sodium Chloride 250 ml @ 250 mls/hr Q24H IV Last administered on 01/24/20at 19:23; Start 01/22/20 at 19:00 Azithromycin 250 ml @ 250 mls/hr 1X ONCE IV Last administered on 01/21/20at 18:25; Start 01/21/20 at 18:15; Stop 01/21/20 at 19:14; Status DC Dexamethasone Sodium Phosphate (Decadron) 6 mg DAILY IVP Last administered on 01/25/20at 08:51; Start 01/22/20 at 09:00 Ceftriaxone Sodium (Rocephin) 1 gm Q24H IVP Last administered on 01/24/20at 20:06; Start 01/22/20 at 20:00 Azithromycin 250 ml @ 250 mls/hr 1X ONCE IV ; Start 01/21/20 at 19:45; Stop 01/21/20 at 20:44; Status UNV Acetaminophen (Tylenol) 650 mg PRN Q6HRS PRN PO Headaches, Temp > 101.5' Last administered on 01/24/20at 16:44; Start 01/21/20 at 19:45 Ondansetron HCl (Zofran) 4 mg PRN Q6HRS PRN IVP NAUSEA/VOMITING; Start 01/21/20 at 19:45 Al Hydroxide/Mg Hydroxide (Mylanta Plus Xs) 30 ml PRN Q3HRS PRN PO HEARTBURN / GAS; Start 01/21/20 at 19:45 Famotidine (Pepcid) 20 mg BID PO Last administered on 01/25/20at 08:51; Start 01/21/20 at 21:00 Enoxaparin Sodium (Lovenox 40mg Syringe) 40 mg Q24H SQ Last administered on 01/21/20at 21:07; Start 01/21/20 at 20:00; Stop 01/22/20 at 10:45; Status DC Sodium Chloride (Normal Saline Flush) 3 ml QSHIFT PRN IV AFTER MEDS AND BLOOD DRAWS; Start 01/21/20 at 19:45 Senna/Docusate Sodium (Senna Plus) 1 tab BID PO Last administered on 01/25/20at 08:51; Start 01/21/20 at 21:00 Magnesium Hydroxide (Milk Of Magnesia) 2,400 mg PRN Q12HR PRN PO CONSTIPATION; Start 01/21/20 at 19:45 Sterile Water (WATER for RESP) 1,000 ml CONT PRN INH VIA VAPOTHERM DEVICE Last administered on 01/23/20at 12:46; Start 01/22/20 at 04:30 Lactobacillus Rhamnosus (Culturelle) 1 cap BID PO Last administered on 01/25/20at 08:51; Start 01/22/20 at 09:00 Non-Formulary Medication 1 ea/ Sodium Chloride 210 ml @ 420 mls/hr ONCE ONCE IV Last administered on 01/22/20at 10:44; Start 01/22/20 at 11:00; Stop 01/22/20 at 11:29; Status DC Non-Formulary Medication 1 ea/ Sodium Chloride 230 ml @ 460 mls/hr DAILY IV Last administered on 01/25/20at 09:17; Start 01/23/20 at 09:00; Stop 01/26/20 at 09:29 Enoxaparin Sodium (Lovenox 40mg Syringe) 40 mg BID SQ Last administered on 01/25/20at 08:52; Start 01/22/20 at 11:00 Lorazepam (Ativan Inj) 0.5 mg PRN Q4HRS PRN IVP ANXIETY / AGITATION; Start 01/23/20 at 21:00 Lorazepam (Ativan Inj) 0.05 mg 1X ONCE IVP Last administered on 01/23/20at 21:13; Start 01/23/20 at 21:15; Stop 01/23/20 at 21:31; Status DC Fentanyl Citrate 30 ml @ 0 mls/hr CONT PRN IV SEE PROTOCOL Last administered on 01/25/20at 09:33; Start 01/23/20 at 22:45 Propofol 100 ml @ 0 mls/hr CONT PRN IV SEE PROTOCOL; Start 01/23/20 at 22:45 Midazolam HCl 100 ml @ 0 mls/hr CONT PRN IV SEE PROTOCOL Last administered on 01/25/20at 09:32; Start 01/23/20 at 22:45 Vecuronium [place] (Norcuron Bolus) 10 mg STK-MED ONCE IV ; Start 01/23/20 at 23:24; Stop 01/23/20 at 23:25; Status DC Vecuronium [place] (Norcuron Bolus) 60 mg 1X ONCE IV Last administered on 01/23/20at 23:30; Start 01/23/20 at 23:30; Stop 01/23/20 at 23:35; Status DC Norepinephrine Bitartrate 8 mg/ Dextrose 258 ml @ 20.666 mls/ hr CONT PRN IV PER PROTOCOL Last administered on 01/24/20at 12:28; Start 01/24/20 at 02:15 Vecuronium [place] (Norcuron Bolus) 6 mg PRN Q4HRS PRN IV SEDATION Last administered on 01/24/20at 15:40; Start 01/24/20 at 04:30 Succinylcholine Chloride (Anectine) 200 mg STK-MED ONCE .ROUTE ; Start 01/23/20 at 23:00; Stop 01/24/20 at 08:24; Status DC Etomidate (Amidate) 20 mg STK-MED ONCE IV ; Start 01/23/20 at 23:00; Stop 01/24/20 at 08:24; Status DC Ringer's Solution 1,000 ml @ 75 mls/hr [id number] IV Last administered on 01/24/20at 19:24; Start 01/24/20 at 12:30 Active Scripts Active Keflex (Cephalexin) 500 Mg Capsule 500 Mg PO QID 10 Days [place] 5-325 Tablet (Acetaminophen/Hydrocodone Bitart) 1 Each Tablet 1 Tab PO PRN Q6HRS PRN Vitals/I & O Vital Sign - Last 24 Hours 01/24/20 01/24/20 01/24/20 01/24/20 15:00 16:00 16:00 16:31 Temp 102.0 102.0 Pulse 80 75 Resp 31 28 B/P (MAP) 102/54 (70) 137/69 (91) Pulse Ox 91 99 99 O2 Delivery Ventilator Ventilator Mechanical Ventilator Ventilator 01/24/20 01/24/20 01/24/20 01/24/20 17:00 18:02 18:17 19:46 Temp 99.6 99.6 Pulse 73 73 Resp 28 28 40 B/P (MAP) 131/64 (86) 127/58 (81) Pulse Ox 94 94 95 O2 Delivery Ventilator Ventilator Ventilator 01/24/20 01/24/20 01/24/20 01/24/20 20:00 20:00 20:15 20:30 Temp 99.9 99.9 Pulse 80 Resp 29 28 B/P (MAP) 115/64 (81) Pulse Ox 95 100 100 O2 Delivery Ventilator Mechanical Ventilator Ventilator Ventilator 01/24/20 01/24/20 01/25/20 01/25/20 21:00 22:00 00:00 00:15 Pulse 68 68 64 Resp 27 27 27 B/P (MAP) 127/58 (81) 127/58 (81) 161/82 (108) Pulse Ox 100 100 100 O2 Delivery Ventilator Ventilator Mechanical Ventilator Ventilator 01/25/20 01/25/20 01/25/20 01/25/20 00:35 01:00 02:00 03:00 Temp 99.4 99.4 Pulse 61 62 62 Resp B/P (MAP) 147/73 (97) 158/77 (104) 157/76 (103) Pulse Ox 100 99 100 100 O2 Delivery Ventilator Ventilator Ventilator Ventilator 01/25/20 01/25/20 01/25/20 01/25/20 03:25 04:00 04:00 04:00 Temp 100.4 100.4 Pulse 54 Resp B/P (MAP) 132/63 (86) Pulse Ox 98 99 100 O2 Delivery Ventilator Mechanical Ventilator Ventilator Ventilator 01/25/20 01/25/20 01/25/20 01/25/20 04:15 05:00 06:00 07:00 Pulse 52 60 58 Resp B/P (MAP) 141/70 (93) 145/69 (94) 114/45 (68) Pulse Ox 100 100 98 96 O2 Delivery Ventilator Ventilator Ventilator Ventilator 01/25/20 01/25/20 01/25/20 01/25/20 07:37 08:00 08:00 09:00 Temp 99.7 99.7 Pulse 57 56 Resp 29 B/P (MAP) 150/68 (95) 132/64 (86) Pulse Ox 98 98 95 O2 Delivery Ventilator Mechanical Ventilator Ventilator Ventilator 01/25/20 01/25/20 01/25/20 01/25/20 09:33 10:00 10:03 11:00 Pulse 54 54 Resp 27 27 B/P (MAP) 132/66 (88) 126/63 (84) Pulse Ox 95 95 95 94 O2 Delivery Ventilator Ventilator Ventilator Ventilator 01/25/20 01/25/20 01/25/20 01/25/20 11:49 12:00 12:00 13:00 Temp 99.7 99.7 Pulse 55 51 Resp 39 29 B/P (MAP) 97/46 (63) 125/60 (81) Pulse Ox 95 99 96 O2 Delivery Ventilator Ventilator Mechanical Ventilator Ventilator Intake and Output 01/24/20 01/24/20 01/25/20 15:00 23:00 07:00 Intake Total 230 ml 1365.56 ml 1785 ml Output Total 345 ml 520 ml 430 ml Balance -115 ml 845.56 ml 1355 ml SHARAD HUTCHINS MD Jan 25, 2020 14:01
[2020-01-25] MEDS: IV RINGERS,LACTATED 1000ML 1,000 ML IV SCH (16:21)
[2020-01-25] MEDS: AZITHROMYCIN 500 MG in IV NORMAL SALINE 250ML 250 ML IV SCH (19:00)
[2020-01-25] MEDS: cefTRIAXone IV Push 1 GM VIAL. IVP SCH (20:45)
[2020-01-25] MEDS: ACETAMINOPHEN 325 MG TABLET. PO PRN (20:45)
[2020-01-26] VITALS (24 sets, daily range): BP systolic 125–152; BP diastolic 64–80
[2020-01-26 07:01] LABS: CALCIUM 7.8 mg/dL (8.5-10.1); CREATININE 0.9 mg/dL (0.6-1.0); POTASSIUM 5.2 mmol/L (3.5-5.1)
--- NOTE | 2020-01-26 08:04 | PDOC ---
Infectious Disease Note Subjective: Subjective Patient intubated/sedated No fevers last 24 hours Vital Signs: Vital Signs Vital Signs Date Time Temp Pulse Resp B/P (MAP) Pulse Ox O2 Delivery O2 Flow Rate FiO2 01/26/20 07:00 41 29 146/72 (96) 96 Ventilator 01/26/20 04:00 99.1 99.1 Physical Exam: PHYSICAL EXAM GENERAL: Orally intubated sedated on ventilator VITAL SIGNS: Stable HEENT: Both pupils are round and reacting. No conjunctival lesion, no lesion in the mouth. NECK: Supple, no JVP, no lymphadenopathy. LUNGS: Clear. HEART: S1, S2 regular. ABDOMEN: Benign. EXTREMITIES: No edema or cyanosis. SKIN: Unremarkable. NEUROLOGIC: Sedated on a ventilator deficit. Medications: Inpatient Meds: Current Medications Medications (Trade) Dose Ordered Sig/Wei Start Time Stop Time Status Last Admin Dose Admin Acetaminophen (Tylenol) 650 mg PRN Q6HRS PRN 01/21/20 19:45 01/25/20 20:45 650 MG Al Hydroxide/Mg Hydroxide (Mylanta Plus Xs) 30 ml PRN Q3HRS PRN 01/21/20 19:45 Azithromycin 250 ml @ 250 mls/hr 1X ONCE 01/21/20 19:45 01/21/20 20:44 UNV Azithromycin 500 mg/Sodium Chloride 250 ml @ 250 mls/hr Q24H 01/22/20 19:00 01/25/20 19:00 250 MLS/HR Ceftriaxone Sodium (Rocephin) 1 gm Q24H 01/22/20 20:00 01/25/20 20:45 1 GM Dexamethasone Sodium Phosphate (Decadron) 6 mg DAILY 01/22/20 09:00 01/25/20 08:51 6 MG Enoxaparin Sodium (Lovenox 40mg Syringe) 40 mg BID 01/22/20 11:00 01/25/20 20:46 40 MG Etomidate (Amidate) 20 mg STK-MED ONCE 01/23/20 23:00 01/24/20 08:24 DC Famotidine (Pepcid) 20 mg BID 01/21/20 21:00 01/25/20 20:45 20 MG Fentanyl Citrate 30 ml @ 0 mls/hr CONT PRN 01/23/20 22:45 01/26/20 01:50 3.75 MLS/HR Lactobacillus Rhamnosus (Culturelle) 1 cap BID 01/22/20 09:00 01/25/20 20:45 1 CAP Lorazepam (Ativan Inj) 0.05 mg 1X ONCE 01/23/20 21:15 01/23/20 21:31 DC 01/23/20 21:13 0.05 MG Magnesium Hydroxide (Milk Of Magnesia) 2,400 mg PRN Q12HR PRN 01/21/20 19:45 Midazolam HCl 100 ml @ 0 mls/hr CONT PRN 01/23/20 22:45 01/25/20 22:46 8 MLS/HR Non-Formulary Medication 1 ea/ Sodium Chloride 230 ml @ 460 mls/hr DAILY 01/23/20 09:00 01/26/20 09:29 01/25/20 09:17 460 MLS/HR Norepinephrine Bitartrate 8 mg/ Dextrose 258 ml @ 20.666 mls/ hr CONT PRN 01/24/20 02:15 01/24/20 12:28 10.333 MLS/HR Ondansetron HCl (Zofran) 4 mg PRN Q6HRS PRN 01/21/20 19:45 Propofol 100 ml @ 0 mls/hr CONT PRN 01/23/20 22:45 Ringer's Solution 1,000 ml @ 75 mls/hr [id number] 01/24/20 12:30 01/25/20 16:21 75 MLS/HR Senna/Docusate Sodium (Senna Plus) 1 tab BID 01/21/20 21:00 01/25/20 20:45 1 TAB Sodium Chloride (Normal Saline Flush) 3 ml QSHIFT PRN 01/21/20 19:45 Sterile Water (WATER for RESP) 1,000 ml CONT PRN 01/22/20 04:30 01/23/20 12:46 1,000 ML Succinylcholine Chloride (Anectine) 200 mg STK-MED ONCE 01/23/20 23:00 01/24/20 08:24 DC Vecuronium [place] (Norcuron Bolus) 6 mg PRN Q4HRS PRN 01/24/20 04:30 01/24/20 15:40 6 MG Labs: Lab Laboratory Tests Test 01/25/20 08:20 01/26/20 06:28 O2 Saturation 96 % (92-99) Arterial Blood pH 7.41 (7.35-7.45) Arterial Blood pCO2 at Patient Temp 33 mmHg (35-46) Arterial Blood pO2 at Patient Temp 89 mmHg (75-108) Arterial Blood HCO3 21 mmol/L (21-28) Arterial Blood Base Excess -3 mmol/L (-3-3) FiO2 90 Sodium Level 144 mmol/L (136-145) Potassium Level 5.2 mmol/L (3.5-5.1) Chloride Level 109 mmol/L (98-107) Carbon Dioxide Level 28 mmol/L (21-32) Anion Gap 7 (6-14) Blood Urea Nitrogen 25 mg/dL (7-20) Creatinine 0.9 mg/dL (0.6-1.0) Estimated GFR (Cockcroft-Gault) 68.0 Glucose Level 147 mg/dL (70-99) Calcium Level 7.8 mg/dL (8.5-10.1) Objective: Assessment: COVID 19 infection -Status post plasma and Remdesivir treatment -CRP 163 ( 101) Pneumonia from COVID-19. Fever. Improving Hypoxemia. Obesity. Hypertension. Plan: Plan of Care cont Remsidivir cont supportive care plasma given cont Rocephin DC azithromycin Discussed with nursing staff REESE ALVA MD Jan 26, 2020 08:04
[2020-01-26 08:45] LABS: BASE EXCESS ABG -2 mmol/L (-3-3); HCO3 ABG 22 mmol/L (21-28); PCO2 ABG 33 mmHg (35-46); PO2 ABG 71 mmHg (75-108); SAT O2 ABG 93 % (92-99)
[2020-01-26 08:48] LABS: FIO2 ABG 80
--- NOTE | 2020-01-26 09:04 | PDOC ---
PULMONARY PROGRESS NOTES Subjective Intubated 01/24/20 remains in A/C mode sedated 80% and PEEP of 12 nursing reports no overnight concerns afebrile however now bradycardia Vitals Vital Signs Date Time Temp Pulse Resp B/P (MAP) Pulse Ox O2 Delivery O2 Flow Rate FiO2 01/26/20 08:37 27 95 Ventilator 01/26/20 08:00 98.7 42 128/70 (89) 98.7 Comments ros unable to obtain sedated on vent Visual exam performed due to COVID-19 pandemic Patient appears to be comfortable in sync with the ventilator, no significant Labs Laboratory Tests Test 01/24/20 09:20 01/24/20 14:40 01/25/20 05:25 01/25/20 06:00 O2 Saturation 94 % (92-99) Arterial Blood pH 7.41 (7.35-7.45) Arterial Blood pCO2 at Patient Temp 33 mmHg (35-46) Arterial Blood pO2 at Patient Temp 75 mmHg (75-108) Arterial Blood HCO3 20 mmol/L (21-28) Arterial Blood Base Excess -4 mmol/L (-3-3) FiO2 100 Fibrinogen 608 mg/dL (200-440) D-Dimer (Shirley) 8.22 ug/mlFEU (0.00-0.50) C-Reactive Protein, Quantitative 161.3 mg/L (0-3.3) Sodium Level 143 mmol/L (136-145) Potassium Level 5.3 mmol/L (3.5-5.1) Chloride Level 109 mmol/L (98-107) Carbon Dioxide Level 25 mmol/L (21-32) Anion Gap 9 (6-14) Blood Urea Nitrogen 16 mg/dL (7-20) Creatinine 0.7 mg/dL (0.6-1.0) Estimated GFR (Cockcroft-Gault) 90.9 Glucose Level 153 mg/dL (70-99) Calcium Level 6.8 mg/dL (8.5-10.1) White Blood Count 13.1 x10^3/uL (4.0-11.0) Red Blood Count 3.93 x10^6/uL (3.50-5.40) Hemoglobin 10.9 g/dL (12.0-15.5) Hematocrit 33.6 % (36.0-47.0) Mean Corpuscular Volume 86 fL (79-100) Mean Corpuscular Hemoglobin 28 pg (25-35) Mean Corpuscular Hemoglobin Concent 32 g/dL (31-37) Red Cell Distribution Width 15.5 % (11.5-14.5) Platelet Count 498 x10^3/uL (140-400) Neutrophils (%) (Auto) 93 % (31-73) Lymphocytes (%) (Auto) 4 % (24-48) Monocytes (%) (Auto) 3 % (0-9) Eosinophils (%) (Auto) 0 % (0-3) Basophils (%) (Auto) 0 % (0-3) Neutrophils # (Auto) 12.2 x10^3/uL (1.8-7.7) Lymphocytes # (Auto) 0.5 x10^3/uL (1.0-4.8) Monocytes # (Auto) 0.5 x10^3/uL (0.0-1.1) Eosinophils # (Auto) 0.0 x10^3/uL (0.0-0.7) Basophils # (Auto) 0.0 x10^3/uL (0.0-0.2) Test 01/25/20 08:20 01/26/20 06:28 01/26/20 08:30 O2 Saturation 96 % (92-99) 93 % (92-99) Arterial Blood pH 7.41 (7.35-7.45) 7.43 (7.35-7.45) Arterial Blood pCO2 at Patient Temp 33 mmHg (35-46) 33 mmHg (35-46) Arterial Blood pO2 at Patient Temp 89 mmHg (75-108) 71 mmHg (75-108) Arterial Blood HCO3 21 mmol/L (21-28) 22 mmol/L (21-28) Arterial Blood Base Excess -3 mmol/L (-3-3) -2 mmol/L (-3-3) FiO2 90 80 Sodium Level 144 mmol/L (136-145) Potassium Level 5.2 mmol/L (3.5-5.1) Chloride Level 109 mmol/L (98-107) Carbon Dioxide Level 28 mmol/L (21-32) Anion Gap 7 (6-14) Blood Urea Nitrogen 25 mg/dL (7-20) Creatinine 0.9 mg/dL (0.6-1.0) Estimated GFR (Cockcroft-Gault) 68.0 Glucose Level 147 mg/dL (70-99) Calcium Level 7.8 mg/dL (8.5-10.1) Laboratory Tests Test 01/26/20 06:28 01/26/20 08:30 Sodium Level 144 mmol/L (136-145) Potassium Level 5.2 mmol/L (3.5-5.1) Chloride Level 109 mmol/L (98-107) Carbon Dioxide Level 28 mmol/L (21-32) Anion Gap 7 (6-14) Blood Urea Nitrogen 25 mg/dL (7-20) Creatinine 0.9 mg/dL (0.6-1.0) Estimated GFR (Cockcroft-Gault) 68.0 Glucose Level 147 mg/dL (70-99) Calcium Level 7.8 mg/dL (8.5-10.1) O2 Saturation 93 % (92-99) Arterial Blood pH 7.43 (7.35-7.45) Arterial Blood pCO2 at Patient Temp 33 mmHg (35-46) Arterial Blood pO2 at Patient Temp 71 mmHg (75-108) Arterial Blood HCO3 22 mmol/L (21-28) Arterial Blood Base Excess -2 mmol/L (-3-3) FiO2 80 Medications Active Scripts Medications Dose Route/Sig Max Daily Dose Days Date Category Keflex (Cephalexin) 500 Mg Capsule 500 Mg PO QID 10 06/20/18 Rx [place] 5-325 Tablet (Acetaminophen/Hydrocodone Bitart) 1 Each Tablet 1 Tab PO PRN Q6HRS PRN 06/20/18 Rx Comments CXR IMPRESSION: 1. Widespread airspace disease, not significantly changed. 2. Stable position of tubes and lines. Impression . IMPRESSION: 1. Acute hypoxic respiratory failure secondary to COVID-19 pneumonia and sep sis. intubated 01/24/20 2. Abnormal chest x-ray with bilateral patchy infiltrates compatible with COVID-19 pneumonia. COVID-19 + 3. Underlying obesity. 4. Hypertension 5. Hypotension- improved Plan . Continue current A/C mode Peep 12 and Fi02 of 80%, follow ABG and CXR-- Antibiotics per ID--rocephin and azithromycin Status post plasma exchange 01/22 Continue steroids Start tube feeding today D/W RN and RT CODE: FULL DVT/GI PPX: lovenox/pepcid REZASABATO MD Jan 26, 2020 09:04
[2020-01-26] MEDS: SENNOSIDES/DOCUSATE 8.6/50MG TABLET. PO SCH ×2 (09:28→20:47)
[2020-01-26] MEDS: LACTOBACILLUS RHAMNOSUS GG 1 CAPSULE. PO SCH ×2 (09:28→20:47)
[2020-01-26] MEDS: FAMOTIDINE 20 MG TABLET. PO SCH ×2 (09:28→20:47)
[2020-01-26] MEDS: ENOXAPARIN 40 MG/0.4 ML SYRINGE. SQ SCH ×2 (09:29→20:48)
[2020-01-26] MEDS: DEXAMETHASONE SOD PHOS 4 MG/ML VIAL IVP SCH (09:29)
[2020-01-26] MEDS: NON FORMULARY ITEM 1 EA in IV NORMAL SALINE 250ML 230 ML IV SCH (09:58)
--- NOTE | 2020-01-26 11:35 | PDOC ---
PROGRESS NOTES Chief Complaint Chief Complaint Assessment/Plan ASSESSMENT Acute Hypoxic Respiratory Failure Secondary to COVID-PNA multifocal pulmonary infiltrates.// follow-up to resolution. Morbid Obesity HTN NORMOCYTIC ANEMIA severe protein-caloric malnutrition PLAN - CONT ICU given hypoxic resp failure - dexamethasone 6 mg IV daily - finished zithromax , continue Rocephin - ID consult for plasma and remdesevir which she completed - pulm consult given hypoxia - dvt ppx: lovenox 40 MG BID - GI ppx: pepcid FULL CODE monitor in ICU given hypoxia LOS greater than 2 midnights given resp failure, COVID PNA VTE Prophylaxis Ordered VTE Prophylaxis Devices: Yes VTE Pharmacological Prophylaxi: Yes History of Present Illness History of Present Illness 01/22 t max 99.6 01/23 No acute events reported overnight, case discussed with nursing staff patient in no acute distress continues with ventilatory support 01/24 Patient with no acute events reported overnight. No new complaints continues to have ventilatory support requirements. No concerns voiced by nursing staff 01/25 No acute events reported overnight, case discussed with nursing staff patient in no acute distress no complaints during my visit recommendations COVID-19 CRITERIA: The patient was evaluated during the global COVID-19 pandemic, and that diagnosis was suspected/considered upon their initial presentation. Their evaluation, treatment and testing was consistent with current guidelines for patients who present with complaints or symptoms that may be related to COVID-19. Justicifation of Admission Dx: Justicifation of Admission Dx: Justifications for Admission: Justification of Admission Dx: Yes Respiratory Failure: Severe Resp Distress Vitals Vitals Vital Signs Date Time Temp Pulse Resp B/P (MAP) Pulse Ox O2 Delivery O2 Flow Rate FiO2 01/26/20 11:00 40 30 150/75 (100) 94 Ventilator 01/26/20 08:00 98.7 98.7 Physical Exam Physical Exam GENERAL: Orally intubated sedated on ventilator VITAL SIGNS: Stable HEENT: Both pupils are round and reacting. No conjunctival lesion, no lesion in the mouth. NECK: Supple, no JVP, no lymphadenopathy. LUNGS: Clear. HEART: S1, S2 regular. ABDOMEN: Benign. EXTREMITIES: No edema or cyanosis. SKIN: Unremarkable. NEUROLOGIC: Sedated on a ventilator deficit. General: Oriented X3, Cooperative, mild distress Extremities: No clubbing, No cyanosis Labs LABS Laboratory Tests Test 01/26/20 06:28 01/26/20 08:30 Sodium Level 144 mmol/L (136-145) Potassium Level 5.2 mmol/L (3.5-5.1) Chloride Level 109 mmol/L (98-107) Carbon Dioxide Level 28 mmol/L (21-32) Anion Gap 7 (6-14) Blood Urea Nitrogen 25 mg/dL (7-20) Creatinine 0.9 mg/dL (0.6-1.0) Estimated GFR (Cockcroft-Gault) 68.0 Glucose Level 147 mg/dL (70-99) Calcium Level 7.8 mg/dL (8.5-10.1) O2 Saturation 93 % (92-99) Arterial Blood pH 7.43 (7.35-7.45) Arterial Blood pCO2 at Patient Temp 33 mmHg (35-46) Arterial Blood pO2 at Patient Temp 71 mmHg (75-108) Arterial Blood HCO3 22 mmol/L (21-28) Arterial Blood Base Excess -2 mmol/L (-3-3) FiO2 80 Assessment and Plan Assessmemt and Plan Problems Medical Problems: (1) Pneumonia due to COVID-19 virus Status: Acute Comment Review of Relevant I have reviewed the following items stephon (where applicable) has been applied. Labs Laboratory Tests Test 01/24/20 14:40 01/25/20 05:25 01/25/20 06:00 01/25/20 08:20 Fibrinogen 608 mg/dL (200-440) D-Dimer (Shirley) 8.22 ug/mlFEU (0.00-0.50) C-Reactive Protein, Quantitative 161.3 mg/L (0-3.3) Sodium Level 143 mmol/L (136-145) Potassium Level 5.3 mmol/L (3.5-5.1) Chloride Level 109 mmol/L (98-107) Carbon Dioxide Level 25 mmol/L (21-32) Anion Gap 9 (6-14) Blood Urea Nitrogen 16 mg/dL (7-20) Creatinine 0.7 mg/dL (0.6-1.0) Estimated GFR (Cockcroft-Gault) 90.9 Glucose Level 153 mg/dL (70-99) Calcium Level 6.8 mg/dL (8.5-10.1) White Blood Count 13.1 x10^3/uL (4.0-11.0) Red Blood Count 3.93 x10^6/uL (3.50-5.40) Hemoglobin 10.9 g/dL (12.0-15.5) Hematocrit 33.6 % (36.0-47.0) Mean Corpuscular Volume 86 fL (79-100) Mean Corpuscular Hemoglobin 28 pg (25-35) Mean Corpuscular Hemoglobin Concent 32 g/dL (31-37) Red Cell Distribution Width 15.5 % (11.5-14.5) Platelet Count 498 x10^3/uL (140-400) Neutrophils (%) (Auto) 93 % (31-73) Lymphocytes (%) (Auto) 4 % (24-48) Monocytes (%) (Auto) 3 % (0-9) Eosinophils (%) (Auto) 0 % (0-3) Basophils (%) (Auto) 0 % (0-3) Neutrophils # (Auto) 12.2 x10^3/uL (1.8-7.7) Lymphocytes # (Auto) 0.5 x10^3/uL (1.0-4.8) Monocytes # (Auto) 0.5 x10^3/uL (0.0-1.1) Eosinophils # (Auto) 0.0 x10^3/uL (0.0-0.7) Basophils # (Auto) 0.0 x10^3/uL (0.0-0.2) O2 Saturation 96 % (92-99) Arterial Blood pH 7.41 (7.35-7.45) Arterial Blood pCO2 at Patient Temp 33 mmHg (35-46) Arterial Blood pO2 at Patient Temp 89 mmHg (75-108) Arterial Blood HCO3 21 mmol/L (21-28) Arterial Blood Base Excess -3 mmol/L (-3-3) FiO2 90 Test 01/26/20 06:28 01/26/20 08:30 Sodium Level 144 mmol/L (136-145) Potassium Level 5.2 mmol/L (3.5-5.1) Chloride Level 109 mmol/L (98-107) Carbon Dioxide Level 28 mmol/L (21-32) Anion Gap 7 (6-14) Blood Urea Nitrogen 25 mg/dL (7-20) Creatinine 0.9 mg/dL (0.6-1.0) Estimated GFR (Cockcroft-Gault) 68.0 Glucose Level 147 mg/dL (70-99) Calcium Level 7.8 mg/dL (8.5-10.1) O2 Saturation 93 % (92-99) Arterial Blood pH 7.43 (7.35-7.45) Arterial Blood pCO2 at Patient Temp 33 mmHg (35-46) Arterial Blood pO2 at Patient Temp 71 mmHg (75-108) Arterial Blood HCO3 22 mmol/L (21-28) Arterial Blood Base Excess -2 mmol/L (-3-3) FiO2 80 Laboratory Tests Test 01/26/20 06:28 01/26/20 08:30 Sodium Level 144 mmol/L (136-145) Potassium Level 5.2 mmol/L (3.5-5.1) Chloride Level 109 mmol/L (98-107) Carbon Dioxide Level 28 mmol/L (21-32) Anion Gap 7 (6-14) Blood Urea Nitrogen 25 mg/dL (7-20) Creatinine 0.9 mg/dL (0.6-1.0) Estimated GFR (Cockcroft-Gault) 68.0 Glucose Level 147 mg/dL (70-99) Calcium Level 7.8 mg/dL (8.5-10.1) O2 Saturation 93 % (92-99) Arterial Blood pH 7.43 (7.35-7.45) Arterial Blood pCO2 at Patient Temp 33 mmHg (35-46) Arterial Blood pO2 at Patient Temp 71 mmHg (75-108) Arterial Blood HCO3 22 mmol/L (21-28) Arterial Blood Base Excess -2 mmol/L (-3-3) FiO2 80 Medications Current Medications Acetaminophen (Tylenol) 1,000 mg 1X ONCE PO Last administered on 01/21/20at 17:00; Start 01/21/20 at 17:00; Stop 01/21/20 at 17:01; Status DC Ondansetron HCl (Zofran) 4 mg PRN Q8HRS PRN IV NAUSEA/VOMITING; Start 01/21/20 at 18:00; Stop 01/22/20 at 07:55; Status DC Dexamethasone Sodium Phosphate (Decadron) 6 mg 1X ONCE IVP Last administered on 01/21/20at 18:14; Start 01/21/20 at 18:00; Stop 01/21/20 at 18:01; Status DC Ceftriaxone Sodium (Rocephin) 1 gm 1X ONCE IVP Last administered on 01/21/20at 18:14; Start 01/21/20 at 18:00; Stop 01/21/20 at 18:01; Status DC Azithromycin 500 mg/Sodium Chloride 250 ml @ 250 mls/hr Q24H IV Last administered on 01/25/20at 19:00; Start 01/22/20 at 19:00; Stop 01/26/20 at 09:05; Status DC Azithromycin 250 ml @ 250 mls/hr 1X ONCE IV Last administered on 01/21/20at 18:25; Start 01/21/20 at 18:15; Stop 01/21/20 at 19:14; Status DC Dexamethasone Sodium Phosphate (Decadron) 6 mg DAILY IVP Last administered on 01/26/20at 09:29; Start 01/22/20 at 09:00 Ceftriaxone Sodium (Rocephin) 1 gm Q24H IVP Last administered on 01/25/20at 20:45; Start 01/22/20 at 20:00 Azithromycin 250 ml @ 250 mls/hr 1X ONCE IV ; Start 01/21/20 at 19:45; Stop 01/21/20 at 20:44; Status UNV Acetaminophen (Tylenol) 650 mg PRN Q6HRS PRN PO Headaches, Temp > 101.5' Last administered on 01/25/20at 20:45; Start 01/21/20 at 19:45 Ondansetron HCl (Zofran) 4 mg PRN Q6HRS PRN IVP NAUSEA/VOMITING; Start 01/21/20 at 19:45 Al Hydroxide/Mg Hydroxide (Mylanta Plus Xs) 30 ml PRN Q3HRS PRN PO HEARTBURN / GAS; Start 01/21/20 at 19:45 Famotidine (Pepcid) 20 mg BID PO Last administered on 01/26/20at 09:28; Start 01/21/20 at 21:00 Enoxaparin Sodium (Lovenox 40mg Syringe) 40 mg Q24H SQ Last administered on 01/21/20at 21:07; Start 01/21/20 at 20:00; Stop 01/22/20 at 10:45; Status DC Sodium Chloride (Normal Saline Flush) 3 ml QSHIFT PRN IV AFTER MEDS AND BLOOD DRAWS; Start 01/21/20 at 19:45 Senna/Docusate Sodium (Senna Plus) 1 tab BID PO Last administered on 01/26/20at 09:28; Start 01/21/20 at 21:00 Magnesium Hydroxide (Milk Of Magnesia) 2,400 mg PRN Q12HR PRN PO CONSTIPATION; Start 01/21/20 at 19:45 Sterile Water (WATER for RESP) 1,000 ml CONT PRN INH VIA VAPOTHERM DEVICE Last administered on 01/23/20at 12:46; Start 01/22/20 at 04:30 Lactobacillus Rhamnosus (Culturelle) 1 cap BID PO Last administered on 01/26/20 09:28; Start 01/22/20 at 09:00 Non-Formulary Medication 1 ea/ Sodium Chloride 210 ml @ 420 mls/hr ONCE ONCE IV Last administered on 01/22/20 10:44; Start 01/22/20 at 11:00; Stop 01/22/20 at 11:29; Status DC Non-Formulary Medication 1 ea/ Sodium Chloride 230 ml @ 460 mls/hr DAILY IV Last administered on 01/26/20at 09:58; Start 01/23/20 at 09:00; Stop 01/26/20 at 09:29; Status DC Enoxaparin Sodium (Lovenox 40mg Syringe) 40 mg BID SQ Last administered on 01/26/20at 09:29; Start 01/22/20 at 11:00 Lorazepam (Ativan Inj) 0.5 mg PRN Q4HRS PRN IVP ANXIETY / AGITATION; Start 01/23/20 at 21:00 Lorazepam (Ativan Inj) 0.05 mg 1X ONCE IVP Last administered on 01/23/20at 21:13; Start 01/23/20 at 21:15; Stop 01/23/20 at 21:31; Status DC Fentanyl Citrate 30 ml @ 0 mls/hr CONT PRN IV SEE PROTOCOL Last administered on 01/26/20at 08:07; Start 01/23/20 at 22:45 Propofol 100 ml @ 0 mls/hr CONT PRN IV SEE PROTOCOL; Start 01/23/20 at 22:45 Midazolam HCl 100 ml @ 0 mls/hr CONT PRN IV SEE PROTOCOL Last administered on 01/25/20at 22:46; Start 01/23/20 at 22:45 Vecuronium [place] (Norcuron Bolus) 10 mg STK-MED ONCE IV ; Start 01/23/20 at 23:24; Stop 01/23/20 at 23:25; Status DC Vecuronium [place] (Norcuron Bolus) 60 mg 1X ONCE IV Last administered on 01/23/20at 23:30; Start 01/23/20 at 23:30; Stop 01/23/20 at 23:35; Status DC Norepinephrine Bitartrate 8 mg/ Dextrose 258 ml @ 20.666 mls/ hr CONT PRN IV PER PROTOCOL Last administered on 01/24/20at 12:28; Start 01/24/20 at 02:15 Vecuronium [place] (Norcuron Bolus) 6 mg PRN Q4HRS PRN IV SEDATION Last administered on 01/24/20at 15:40; Start 01/24/20 at 04:30 Succinylcholine Chloride (Anectine) 200 mg STK-MED ONCE .ROUTE ; Start 01/23/20 at 23:00; Stop 01/24/20 at 08:24; Status DC Etomidate (Amidate) 20 mg STK-MED ONCE IV ; Start 01/23/20 at 23:00; Stop 01/24/20 at 08:24; Status DC Ringer's Solution 1,000 ml @ 75 mls/hr [id number] IV Last administered on 01/25/20at 16:21; Start 01/24/20 at 12:30; Stop 01/26/20 at 09:17; Status DC Active Scripts Active Keflex (Cephalexin) 500 Mg Capsule 500 Mg PO QID 10 Days [place] 5-325 Tablet (Acetaminophen/Hydrocodone Bitart) 1 Each Tablet 1 Tab PO PRN Q6HRS PRN Vitals/I & O Vital Sign - Last 24 Hours 01/25/20 01/25/20 01/25/20 01/25/20 11:49 12:00 12:00 13:00 Temp 99.7 99.7 Pulse 55 51 Resp 39 29 B/P (MAP) 97/46 (63) 125/60 (81) Pulse Ox 95 99 96 O2 Delivery Ventilator Ventilator Mechanical Ventilator Ventilator 01/25/20 01/25/20 01/25/20 01/25/20 14:00 15:00 15:46 16:00 Temp 99.0 99.0 Pulse 51 50 50 Resp 36 37 26 B/P (MAP) 124/61 (82) 124/61 (82) 122/58 (79) Pulse Ox 95 95 96 95 O2 Delivery Ventilator Ventilator Ventilator Ventilator 01/25/20 01/25/20 01/25/20 01/25/20 16:00 16:20 16:50 17:00 Pulse 49 Resp 35 27 27 B/P (MAP) 131/62 (85) Pulse Ox 95 96 96 O2 Delivery Mechanical Ventilator Ventilator Ventilator Ventilator 01/25/20 01/25/20 01/25/20 01/25/20 18:00 20:00 20:00 20:11 Temp 99.0 99.0 Pulse 50 50 Resp 35 35 B/P (MAP) 132/65 (87) 132/65 (87) Pulse Ox 96 96 96 O2 Delivery Ventilator Mechanical Ventilator Ventilator Ventilator 01/25/20 01/25/20 01/25/20 01/26/20 21:00 22:00 23:00 00:00 Pulse 50 44 42 Resp 35 37 28 B/P (MAP) 132/65 (87) 133/70 (91) 132/70 (90) Pulse Ox 96 97 97 O2 Delivery Ventilator Ventilator Ventilator Mechanical Ventilator 01/26/20 01/26/20 01/26/20 01/26/20 00:00 00:53 01:00 01:19 Temp 99.4 99.4 Pulse 42 42 Resp 28 45 28 B/P (MAP) 136/72 (93) 139/72 (94) Pulse Ox 96 96 96 97 O2 Delivery Ventilator Ventilator Ventilator Ventilator 01/26/20 01/26/20 01/26/20 01/26/20 01:50 01:50 02:00 02:30 Pulse 42 Resp 0 47 47 38 B/P (MAP) 142/78 (99) Pulse Ox 97 97 97 O2 Delivery Ventilator Ventilator Ventilator 01/26/20 01/26/20 01/26/20 01/26/20 04:00 04:00 04:50 05:00 Temp 99.1 99.1 Pulse 41 41 Resp 42 36 B/P (MAP) 140/70 (93) 146/72 (96) Pulse Ox 97 96 97 O2 Delivery Ventilator Mechanical Ventilator Ventilator Ventilator 01/26/20 01/26/20 01/26/20 01/26/20 06:00 07:00 08:00 08:00 Temp 98.7 98.7 Pulse 42 41 42 Resp 27 29 34 B/P (MAP) 132/66 (88) 146/72 (96) 128/70 (89) Pulse Ox 97 96 97 O2 Delivery Ventilator Ventilator Mechanical Ventilator Ventilator 01/26/20 01/26/20 01/26/20 01/26/20 08:07 08:30 08:37 09:00 Pulse 40 Resp 26 27 31 B/P (MAP) 146/80 (102) Pulse Ox 96 95 95 96 O2 Delivery Ventilator Ventilator Ventilator Ventilator 01/26/20 01/26/20 10:00 11:00 Pulse 40 40 Resp 27 30 B/P (MAP) 146/76 (99) 150/75 (100) Pulse Ox 95 94 O2 Delivery Ventilator Ventilator Intake and Output 01/25/20 01/25/20 01/26/20 15:00 23:00 07:00 Intake Total 230 ml 1178 ml Output Total 395 ml 405 ml 400 ml Balance -165 ml 773 ml -400 ml SHARAD HUTCHINS MD Jan 26, 2020 11:35
[2020-01-26] MEDS: MIDAZOLAM 100mg/100ml NS BAG 100 ML IV PRN ×2 (11:59→22:42)
[2020-01-26] MEDS: cefTRIAXone IV Push 1 GM VIAL. IVP SCH (20:47)
[2020-01-27] VITALS (24 sets, daily range): BP systolic 124–168; BP diastolic 61–105
--- NOTE | 2020-01-27 04:23 | RAD ---
AP chest. HISTORY: Intubated Portable AP view was taken of the chest. Endotracheal tube is at the level the clavicles. NG tube extends into the abdomen. There are diffuse infiltrates with little change. There is a right central line which extends to the superior vena cava or just into the right atrium. IMPRESSION: 1. Endotracheal tube at the level the clavicles. 2. NG tube extends into the stomach. 3. Persistent diffuse infiltrates. Electronically signed by: Chon Reyna MD (01/27/2020 4:20 AM) [id number]
[2020-01-27 05:51] LABS: BASO % 0 % (0-3); EOS % 0 % (0-3); HEMATOCRIT 33.1 % (36.0-47.0); LYMPH # 0.4 x10^3/uL (1.0-4.8); LYMPH % 4 % (24-48); MEAN CORPUSCULAR HEMOGLOBIN 28 pg (25-35); MEAN CORPUSCULAR HGB CONC 33 g/dL (31-37); MEAN CORPUSCULAR VOLUME 85 fL (79-100); MONO # 0.6 x10^3/uL (0.0-1.1); MONO % 6 % (0-9); NEUT # 9.1 x10^3/uL (1.8-7.7); NEUT % 89 % (31-73); PLATELET COUNT 498 x10^3/uL (140-400); RED CELL DISTRIBUTION WIDTH 15.2 % (11.5-14.5); WHITE BLOOD COUNT 10.1 x10^3/uL (4.0-11.0)
[2020-01-27 08:18] LABS: BASE EXCESS ABG -2 mmol/L (-3-3); HCO3 ABG 22 mmol/L (21-28); PCO2 ABG 35 mmHg (35-46); PO2 ABG 63 mmHg (75-108); SAT O2 ABG 89 % (92-99)
[2020-01-27 08:20] LABS: FIO2 ABG 80
--- NOTE | 2020-01-27 09:00 | PDOC ---
Infectious Disease Note Subjective: Subjective Patient intubated/sedated No fevers last 24 hours Vital Signs: Vital Signs Vital Signs Date Time Temp Pulse Resp B/P (MAP) Pulse Ox O2 Delivery O2 Flow Rate FiO2 01/27/20 07:33 96 Ventilator 01/27/20 07:00 40 27 153/75 (101) 01/27/20 05:26 40.0 01/27/20 04:00 98.1 98.1 Physical Exam: PHYSICAL EXAM GENERAL: Orally intubated sedated on ventilator VITAL SIGNS: Stable HEENT: Both pupils are round and reacting. No conjunctival lesion, no lesion in the mouth. NECK: Supple, no JVP, no lymphadenopathy. LUNGS: Clear. HEART: S1, S2 regular. ABDOMEN: Benign. EXTREMITIES: No edema or cyanosis. SKIN: Unremarkable. NEUROLOGIC: Sedated on a ventilator deficit. Medications: Inpatient Meds: Current Medications Medications (Trade) Dose Ordered Sig/Wei Start Time Stop Time Status Last Admin Dose Admin Acetaminophen (Tylenol) 650 mg PRN Q6HRS PRN 01/21/20 19:45 01/25/20 20:45 650 MG Al Hydroxide/Mg Hydroxide (Mylanta Plus Xs) 30 ml PRN Q3HRS PRN 01/21/20 19:45 Azithromycin 250 ml @ 250 mls/hr 1X ONCE 01/21/20 19:45 01/21/20 20:44 UNV Azithromycin 500 mg/Sodium Chloride 250 ml @ 250 mls/hr Q24H 01/22/20 19:00 01/26/20 09:05 DC 01/25/20 19:00 250 MLS/HR Ceftriaxone Sodium (Rocephin) 1 gm Q24H 01/22/20 20:00 01/26/20 20:47 1 GM Dexamethasone Sodium Phosphate (Decadron) 6 mg DAILY 01/22/20 09:00 01/26/20 09:29 6 MG Enoxaparin Sodium (Lovenox 40mg Syringe) 40 mg BID 01/22/20 11:00 01/26/20 20:48 40 MG Etomidate (Amidate) 20 mg STK-MED ONCE 01/23/20 23:00 01/24/20 08:24 DC Famotidine (Pepcid) 20 mg BID 01/21/20 21:00 01/26/20 20:47 20 MG Fentanyl Citrate 30 ml @ 0 mls/hr CONT PRN 01/23/20 22:45 01/27/20 04:48 3.75 MLS/HR Lactobacillus Rhamnosus (Culturelle) 1 cap BID 01/22/20 09:00 01/26/20 20:47 1 CAP Lorazepam (Ativan Inj) 0.05 mg 1X ONCE 01/23/20 21:15 01/23/20 21:31 DC 01/23/20 21:13 0.05 MG Magnesium Hydroxide (Milk Of Magnesia) 2,400 mg PRN Q12HR PRN 01/21/20 19:45 Midazolam HCl 100 ml @ 0 mls/hr CONT PRN 01/23/20 22:45 01/26/20 22:42 8 MLS/HR Non-Formulary Medication 1 ea/ Sodium Chloride 230 ml @ 460 mls/hr DAILY 01/23/20 09:00 01/26/20 09:29 DC 01/26/20 09:58 460 MLS/HR Norepinephrine Bitartrate 8 mg/ Dextrose 258 ml @ 20.666 mls/ hr CONT PRN 01/24/20 02:15 01/24/20 12:28 10.333 MLS/HR Ondansetron HCl (Zofran) 4 mg PRN Q6HRS PRN 01/21/20 19:45 Propofol 100 ml @ 0 mls/hr CONT PRN 01/23/20 22:45 Ringer's Solution 1,000 ml @ 75 mls/hr [id number] 01/24/20 12:30 01/26/20 09:17 DC 01/25/20 16:21 75 MLS/HR Senna/Docusate Sodium (Senna Plus) 1 tab BID 01/21/20 21:00 01/26/20 20:47 1 TAB Sodium Chloride (Normal Saline Flush) 3 ml QSHIFT PRN 01/21/20 19:45 Sterile Water (WATER for RESP) 1,000 ml CONT PRN 01/22/20 04:30 01/23/20 12:46 1,000 ML Succinylcholine Chloride (Anectine) 200 mg STK-MED ONCE 01/23/20 23:00 01/24/20 08:24 DC Vecuronium [place] (Norcuron Bolus) 6 mg PRN Q4HRS PRN 01/24/20 04:30 01/24/20 15:40 6 MG Labs: Lab Laboratory Tests Test 01/27/20 05:10 01/27/20 08:15 White Blood Count 10.1 x10^3/uL (4.0-11.0) Red Blood Count 3.90 x10^6/uL (3.50-5.40) Hemoglobin 11.0 g/dL (12.0-15.5) Hematocrit 33.1 % (36.0-47.0) Mean Corpuscular Volume 85 fL (79-100) Mean Corpuscular Hemoglobin 28 pg (25-35) Mean Corpuscular Hemoglobin Concent 33 g/dL (31-37) Red Cell Distribution Width 15.2 % (11.5-14.5) Platelet Count 498 x10^3/uL (140-400) Neutrophils (%) (Auto) 89 % (31-73) Lymphocytes (%) (Auto) 4 % (24-48) Monocytes (%) (Auto) 6 % (0-9) Eosinophils (%) (Auto) 0 % (0-3) Basophils (%) (Auto) 0 % (0-3) Neutrophils # (Auto) 9.1 x10^3/uL (1.8-7.7) Lymphocytes # (Auto) 0.4 x10^3/uL (1.0-4.8) Monocytes # (Auto) 0.6 x10^3/uL (0.0-1.1) Eosinophils # (Auto) 0.0 x10^3/uL (0.0-0.7) Basophils # (Auto) 0.0 x10^3/uL (0.0-0.2) O2 Saturation 89 % (92-99) Arterial Blood pH 7.43 (7.35-7.45) Arterial Blood pCO2 at Patient Temp 35 mmHg (35-46) Arterial Blood pO2 at Patient Temp 63 mmHg (75-108) Arterial Blood HCO3 22 mmol/L (21-28) Arterial Blood Base Excess -2 mmol/L (-3-3) FiO2 80 Objective: Assessment: COVID 19 infection -Status post plasma and Remdesivir treatment -CRP 163 ( 101) Pneumonia from COVID-19. Acute hypoxic resp failure from above Fever. Improved Obesity. Hypertension. Hypernatremia Plan: Plan of Care Completed Plasma and Remsidivir cont supportive care cont Rocephin completed azithromycin Discussed with nursing staff REESE ALVA MD Jan 27, 2020 09:00
[2020-01-27] MEDS: DEXAMETHASONE SOD PHOS 4 MG/ML VIAL IVP SCH (09:04)
[2020-01-27] MEDS: ENOXAPARIN 40 MG/0.4 ML SYRINGE. SQ SCH ×2 (09:04→20:35)
[2020-01-27] MEDS: FAMOTIDINE 20 MG TABLET. PO SCH ×2 (09:04→20:35)
[2020-01-27] MEDS: SENNOSIDES/DOCUSATE 8.6/50MG TABLET. PO SCH ×2 (09:04→20:35)
[2020-01-27] MEDS: LACTOBACILLUS RHAMNOSUS GG 1 CAPSULE. PO SCH ×2 (09:04→20:35)
--- NOTE | 2020-01-27 09:25 | PDOC ---
PROGRESS NOTES Chief Complaint Chief Complaint Assessment/Plan ASSESSMENT Acute Hypoxic Respiratory Failure Secondary to COVID-PNA multifocal pulmonary infiltrates.// follow-up to resolution. Morbid Obesity HTN NORMOCYTIC ANEMIA severe protein-caloric malnutrition PLAN - CONT ICU given hypoxic resp failure - dexamethasone 6 mg IV daily - finished zithromax , continue Rocephin - ID consult for plasma and remdesevir // completed - pulm consult given hypoxia - dvt ppx: lovenox 40 MG BID - GI ppx: pepcid FULL CODE VENT ICU LOS greater than 2 midnights given resp failure, COVID PNA 35 MIN CC TIME The patient was evaluated during the global COVID-19 pandemic, and that diagnosis was suspected/considered upon their initial presentation. Their evaluation, treatment and testing was consistent with current guidelines for patients who present with complaints or symptoms that may be related to COVID- 19. VTE Prophylaxis Ordered VTE Prophylaxis Devices: Yes VTE Pharmacological Prophylaxi: Yes History of Present Illness History of Present Illness 01/22 t max 99.6 01/23 No acute events reported overnight, case discussed with nursing staff patient in no acute distress continues with ventilatory support 01/24 Patient with no acute events reported overnight. No new complaints continues to have ventilatory support requirements. No concerns voiced by nursing staff 01/26 No acute events reported overnight, case discussed with nursing staff patient in no acute distress no complaints during my visit recommendations COVID-19 CRITERIA: The patient was evaluated during the global COVID-19 pandemic, and that diagnosis was suspected/considered upon their initial presentation. Their evaluation, treatment and testing was consistent with current guidelines for patients who present with complaints or symptoms that may be related to COVID-19. Justicifation of Admission Dx: Justicifation of Admission Dx: Justifications for Admission: Justification of Admission Dx: Yes Respiratory Failure: Severe Resp Distress Vitals Vitals Vital Signs Date Time Temp Pulse Resp B/P (MAP) Pulse Ox O2 Delivery O2 Flow Rate FiO2 01/27/20 07:33 96 Ventilator 01/27/20 07:00 40 27 153/75 (101) 01/27/20 05:26 40.0 01/27/20 04:00 98.1 98.1 Physical Exam Physical Exam GENERAL: Orally intubated sedated on ventilator VITAL SIGNS: Stable HEENT: Both pupils are round and reacting. No conjunctival lesion, no lesion in the mouth. NECK: Supple, no JVP, no lymphadenopathy. LUNGS: Clear. HEART: S1, S2 regular. ABDOMEN: Benign. EXTREMITIES: No edema or cyanosis. SKIN: Unremarkable. NEUROLOGIC: Sedated on a ventilator deficit. General: Oriented X3, Cooperative, mild distress Extremities: No clubbing, No cyanosis Labs LABS Laboratory Tests Test 01/27/20 05:10 01/27/20 08:15 White Blood Count 10.1 x10^3/uL (4.0-11.0) Red Blood Count 3.90 x10^6/uL (3.50-5.40) Hemoglobin 11.0 g/dL (12.0-15.5) Hematocrit 33.1 % (36.0-47.0) Mean Corpuscular Volume 85 fL (79-100) Mean Corpuscular Hemoglobin 28 pg (25-35) Mean Corpuscular Hemoglobin Concent 33 g/dL (31-37) Red Cell Distribution Width 15.2 % (11.5-14.5) Platelet Count 498 x10^3/uL (140-400) Neutrophils (%) (Auto) 89 % (31-73) Lymphocytes (%) (Auto) 4 % (24-48) Monocytes (%) (Auto) 6 % (0-9) Eosinophils (%) (Auto) 0 % (0-3) Basophils (%) (Auto) 0 % (0-3) Neutrophils # (Auto) 9.1 x10^3/uL (1.8-7.7) Lymphocytes # (Auto) 0.4 x10^3/uL (1.0-4.8) Monocytes # (Auto) 0.6 x10^3/uL (0.0-1.1) Eosinophils # (Auto) 0.0 x10^3/uL (0.0-0.7) Basophils # (Auto) 0.0 x10^3/uL (0.0-0.2) O2 Saturation 89 % (92-99) Arterial Blood pH 7.43 (7.35-7.45) Arterial Blood pCO2 at Patient Temp 35 mmHg (35-46) Arterial Blood pO2 at Patient Temp 63 mmHg (75-108) Arterial Blood HCO3 22 mmol/L (21-28) Arterial Blood Base Excess -2 mmol/L (-3-3) FiO2 80 Assessment and Plan Assessmemt and Plan Problems Medical Problems: (1) Pneumonia due to COVID-19 virus Status: Acute Comment Review of Relevant I have reviewed the following items stephon (where applicable) has been applied. Labs Laboratory Tests Test 01/26/20 06:28 01/26/20 08:30 01/27/20 05:10 01/27/20 08:15 Sodium Level 144 mmol/L (136-145) Potassium Level 5.2 mmol/L (3.5-5.1) Chloride Level 109 mmol/L (98-107) Carbon Dioxide Level 28 mmol/L (21-32) Anion Gap 7 (6-14) Blood Urea Nitrogen 25 mg/dL (7-20) Creatinine 0.9 mg/dL (0.6-1.0) Estimated GFR (Cockcroft-Gault) 68.0 Glucose Level 147 mg/dL (70-99) Calcium Level 7.8 mg/dL (8.5-10.1) O2 Saturation 93 % (92-99) 89 % (92-99) Arterial Blood pH 7.43 (7.35-7.45) 7.43 (7.35-7.45) Arterial Blood pCO2 at Patient Temp 33 mmHg (35-46) 35 mmHg (35-46) Arterial Blood pO2 at Patient Temp 71 mmHg (75-108) 63 mmHg (75-108) Arterial Blood HCO3 22 mmol/L (21-28) 22 mmol/L (21-28) Arterial Blood Base Excess -2 mmol/L (-3-3) -2 mmol/L (-3-3) FiO2 80 80 White Blood Count 10.1 x10^3/uL (4.0-11.0) Red Blood Count 3.90 x10^6/uL (3.50-5.40) Hemoglobin 11.0 g/dL (12.0-15.5) Hematocrit 33.1 % (36.0-47.0) Mean Corpuscular Volume 85 fL (79-100) Mean Corpuscular Hemoglobin 28 pg (25-35) Mean Corpuscular Hemoglobin Concent 33 g/dL (31-37) Red Cell Distribution Width 15.2 % (11.5-14.5) Platelet Count 498 x10^3/uL (140-400) Neutrophils (%) (Auto) 89 % (31-73) Lymphocytes (%) (Auto) 4 % (24-48) Monocytes (%) (Auto) 6 % (0-9) Eosinophils (%) (Auto) 0 % (0-3) Basophils (%) (Auto) 0 % (0-3) Neutrophils # (Auto) 9.1 x10^3/uL (1.8-7.7) Lymphocytes # (Auto) 0.4 x10^3/uL (1.0-4.8) Monocytes # (Auto) 0.6 x10^3/uL (0.0-1.1) Eosinophils # (Auto) 0.0 x10^3/uL (0.0-0.7) Basophils # (Auto) 0.0 x10^3/uL (0.0-0.2) Laboratory Tests Test 01/27/20 05:10 01/27/20 08:15 White Blood Count 10.1 x10^3/uL (4.0-11.0) Red Blood Count 3.90 x10^6/uL (3.50-5.40) Hemoglobin 11.0 g/dL (12.0-15.5) Hematocrit 33.1 % (36.0-47.0) Mean Corpuscular Volume 85 fL (79-100) Mean Corpuscular Hemoglobin 28 pg (25-35) Mean Corpuscular Hemoglobin Concent 33 g/dL (31-37) Red Cell Distribution Width 15.2 % (11.5-14.5) Platelet Count 498 x10^3/uL (140-400) Neutrophils (%) (Auto) 89 % (31-73) Lymphocytes (%) (Auto) 4 % (24-48) Monocytes (%) (Auto) 6 % (0-9) Eosinophils (%) (Auto) 0 % (0-3) Basophils (%) (Auto) 0 % (0-3) Neutrophils # (Auto) 9.1 x10^3/uL (1.8-7.7) Lymphocytes # (Auto) 0.4 x10^3/uL (1.0-4.8) Monocytes # (Auto) 0.6 x10^3/uL (0.0-1.1) Eosinophils # (Auto) 0.0 x10^3/uL (0.0-0.7) Basophils # (Auto) 0.0 x10^3/uL (0.0-0.2) O2 Saturation 89 % (92-99) Arterial Blood pH 7.43 (7.35-7.45) Arterial Blood pCO2 at Patient Temp 35 mmHg (35-46) Arterial Blood pO2 at Patient Temp 63 mmHg (75-108) Arterial Blood HCO3 22 mmol/L (21-28) Arterial Blood Base Excess -2 mmol/L (-3-3) FiO2 80 Medications Current Medications Acetaminophen (Tylenol) 1,000 mg 1X ONCE PO Last administered on 01/21/20at 17:00; Start 01/21/20 at 17:00; Stop 01/21/20 at 17:01; Status DC Ondansetron HCl (Zofran) 4 mg PRN Q8HRS PRN IV NAUSEA/VOMITING; Start 01/21/20 at 18:00; Stop 01/22/20 at 07:55; Status DC Dexamethasone Sodium Phosphate (Decadron) 6 mg 1X ONCE IVP Last administered on 01/21/20at 18:14; Start 01/21/20 at 18:00; Stop 01/21/20 at 18:01; Status DC Ceftriaxone Sodium (Rocephin) 1 gm 1X ONCE IVP Last administered on 01/21/20at 18:14; Start 01/21/20 at 18:00; Stop 01/21/20 at 18:01; Status DC Azithromycin 500 mg/Sodium Chloride 250 ml @ 250 mls/hr Q24H IV Last administered on 01/25/20at 19:00; Start 01/22/20 at 19:00; Stop 01/26/20 at 09:05; Status DC Azithromycin 250 ml @ 250 mls/hr 1X ONCE IV Last administered on 01/21/20at 18:25; Start 01/21/20 at 18:15; Stop 01/21/20 at 19:14; Status DC Dexamethasone Sodium Phosphate (Decadron) 6 mg DAILY IVP Last administered on at 09:04; Start 01/22/20 at 09:00 Ceftriaxone Sodium (Rocephin) 1 gm Q24H IVP Last administered on 01/26/20at 20:47; Start 01/22/20 at 20:00 Azithromycin 250 ml @ 250 mls/hr 1X ONCE IV ; Start 01/21/20 at 19:45; Stop 01/21/20 at 20:44; Status UNV Acetaminophen (Tylenol) 650 mg PRN Q6HRS PRN PO Headaches, Temp > 101.5' Last administered on 01/25/20at 20:45; Start 01/21/20 at 19:45 Ondansetron HCl (Zofran) 4 mg PRN Q6HRS PRN IVP NAUSEA/VOMITING; Start 01/21/20 at 19:45 Al Hydroxide/Mg Hydroxide (Mylanta Plus Xs) 30 ml PRN Q3HRS PRN PO HEARTBURN / GAS; Start 01/21/20 at 19:45 Famotidine (Pepcid) 20 mg BID PO Last administered on 01/27/20at 09:04; Start 01/21/20 at 21:00 Enoxaparin Sodium (Lovenox 40mg Syringe) 40 mg Q24H SQ Last administered on 01/21/20at 21:07; Start 01/21/20 at 20:00; Stop 01/22/20 at 10:45; Status DC Sodium Chloride (Normal Saline Flush) 3 ml QSHIFT PRN IV AFTER MEDS AND BLOOD DRAWS; Start 01/21/20 at 19:45 Senna/Docusate Sodium (Senna Plus) 1 tab BID PO Last administered on 01/27/20at 09:04; Start 01/21/20 at 21:00 Magnesium Hydroxide (Milk Of Magnesia) 2,400 mg PRN Q12HR PRN PO CONSTIPATION; Start 01/21/20 at 19:45 Sterile Water (WATER for RESP) 1,000 ml CONT PRN INH VIA VAPOTHERM DEVICE Last administered on 01/23/20at 12:46; Start 01/22/20 at 04:30 Lactobacillus Rhamnosus (Culturelle) 1 cap BID PO Last administered on 01/27/20at 09:04; Start 01/22/20 at 09:00 Non-Formulary Medication 1 ea/ Sodium Chloride 210 ml @ 420 mls/hr ONCE ONCE IV Last administered on 01/22/20at 10:44; Start 01/22/20 at 11:00; Stop 01/22/20 at 11:29; Status DC Non-Formulary Medication 1 ea/ Sodium Chloride 230 ml @ 460 mls/hr DAILY IV Last administered on 6/28/20at 09:58; Start 01/23/20 at 09:00; Stop 01/26/20 at 09:29; Status DC Enoxaparin Sodium (Lovenox 40mg Syringe) 40 mg BID SQ Last administered on 01/27/20at 09:04; Start 01/22/20 at 11:00 Lorazepam (Ativan Inj) 0.5 mg PRN Q4HRS PRN IVP ANXIETY / AGITATION; Start 01/23/20 at 21:00 Lorazepam (Ativan Inj) 0.05 mg 1X ONCE IVP Last administered on 01/23/20at 21:13; Start 01/23/20 at 21:15; Stop 01/23/20 at 21:31; Status DC Fentanyl Citrate 30 ml @ 0 mls/hr CONT PRN IV SEE PROTOCOL Last administered on 01/27/20at 04:48; Start 01/23/20 at 22:45 Propofol 100 ml @ 0 mls/hr CONT PRN IV SEE PROTOCOL; Start 01/23/20 at 22:45 Midazolam HCl 100 ml @ 0 mls/hr CONT PRN IV SEE PROTOCOL Last administered on 01/26/20at 22:42; Start 01/23/20 at 22:45 Vecuronium [place] (Norcuron Bolus) 10 mg STK-MED ONCE IV ; Start 01/23/20 at 23:24; Stop 01/23/20 at 23:25; Status DC Vecuronium [place] (Norcuron Bolus) 60 mg 1X ONCE IV Last administered on 01/23/20at 23:30; Start 01/23/20 at 23:30; Stop 01/23/20 at 23:35; Status DC Norepinephrine Bitartrate 8 mg/ Dextrose 258 ml @ 20.666 mls/ hr CONT PRN IV PER PROTOCOL Last administered on 01/24/20at 12:28; Start 01/24/20 at 02:15 Vecuronium [place] (Norcuron Bolus) 6 mg PRN Q4HRS PRN IV SEDATION Last administered on 01/24/20at 15:40; Start 01/24/20 at 04:30 Succinylcholine Chloride (Anectine) 200 mg STK-MED ONCE .ROUTE ; Start 01/23/20 at 23:00; Stop 01/24/20 at 08:24; Status DC Etomidate (Amidate) 20 mg STK-MED ONCE IV ; Start 01/23/20 at 23:00; Stop 01/24/20 at 08:24; Status DC Ringer's Solution 1,000 ml @ 75 mls/hr [id number] IV Last administered on 01/25/20at 16:21; Start 01/24/20 at 12:30; Stop 01/26/20 at 09:17; Status DC Active Scripts Active Keflex (Cephalexin) 500 Mg Capsule 500 Mg PO QID 10 Days [place] 5-325 Tablet (Acetaminophen/Hydrocodone Bitart) 1 Each Tablet 1 Tab PO PRN Q6HRS PRN Vitals/I & O Vital Sign - Last 24 Hours 01/26/20 01/26/20 01/26/20 01/26/20 10:00 11:00 11:55 12:00 Temp 98.9 98.9 Pulse 40 40 40 Resp 27 30 8 B/P (MAP) 146/76 (99) 150/75 (100) 149/70 (96) Pulse Ox 95 94 94 94 O2 Delivery Ventilator Ventilator Ventilator Ventilator 01/26/20 01/26/20 01/26/20 01/26/20 12:00 13:00 14:00 15:00 Pulse 40 44 40 Resp 35 36 36 B/P (MAP) 152/77 (102) 128/64 (85) 152/77 (102) Pulse Ox 94 94 94 O2 Delivery Mechanical Ventilator Ventilator Ventilator Ventilator 01/26/20 01/26/20 01/26/20 01/26/20 15:25 15:55 16:00 16:00 Temp 99.0 99.0 Pulse 40 Resp 36 36 37 B/P (MAP) 141/74 (96) Pulse Ox 94 94 95 O2 Delivery Ventilator Ventilator Ventilator Mechanical Ventilator 01/26/20 01/26/20 01/26/20 01/26/20 16:26 17:00 18:00 19:00 Pulse 41 49 43 Resp 29 31 32 B/P (MAP) 147/76 (99) 149/77 (101) 149/77 (101) Pulse Ox 95 94 94 95 O2 Delivery Ventilator Ventilator Ventilator Ventilator 01/26/20 01/26/20 01/26/20 01/26/20 19:50 20:00 20:06 21:15 Temp 97.6 97.6 Pulse 43 41 Resp 30 30 B/P (MAP) 133/65 (87) 139/68 (91) Pulse Ox 95 94 96 O2 Delivery Ventilator Mechanical Ventilator Ventilator Ventilator 01/26/20 01/26/20 01/26/20 01/26/20 22:00 22:36 23:00 23:38 Temp 98.1 98.1 Pulse 41 42 Resp B/P (MAP) 140/72 (94) 132/67 (88) Pulse Ox 96 96 96 96 O2 Delivery Ventilator Ventilator O2 Flow Rate 40.0 40.0 01/26/20 01/26/20 01/27/20 01/27/20 23:59 23:59 00:35 01:00 Pulse 41 42 Resp B/P (MAP) 125/75 (92) 146/76 (99) Pulse Ox 96 95 96 O2 Delivery Mechanical Ventilator Ventilator Ventilator Ventilator 01/27/20 01/27/20 01/27/20 01/27/20 02:00 03:00 04:00 04:00 Temp 98.1 98.1 Pulse 42 42 42 Resp 27 B/P (MAP) 148/76 (100) 157/76 (103) 134/87 (103) Pulse Ox 96 96 96 O2 Delivery Ventilator Ventilator Ventilator Mechanical Ventilator 01/27/20 01/27/20 01/27/20 01/27/20 04:24 04:48 05:00 05:26 Pulse 43 Resp 27 B/P (MAP) 127/67 (87) Pulse Ox 95 95 96 95 O2 Delivery Ventilator Ventilator O2 Flow Rate 40.0 40.0 01/27/20 01/27/20 01/27/20 06:02 07:00 07:33 Pulse 42 40 Resp 27 27 B/P (MAP) 152/76 (101) 153/75 (101) Pulse Ox 96 95 96 O2 Delivery Ventilator Ventilator Ventilator Intake and Output 01/26/20 01/26/20 01/27/20 15:00 23:00 07:00 Intake Total 230 ml 186 ml 156 ml Output Total 445 ml 570 ml 650 ml Balance -215 ml -384 ml -494 ml JORDY FLORIAN MD Jan 27, 2020 09:25
--- NOTE | 2020-01-27 10:52 | NUR ---
SS following up with discharge planning. SS reviewed pt chart and discussed with pt RN. Pt remains on the vent at this time. Pt COVID19 positive. Pt on IV Rocephin. Pt is self pay pt and from home with family. SS will continue to follow for discharge planning.
--- NOTE | 2020-01-27 11:31 | NUR ---
This RN spoke with Romana GASTON) and updated on pt condition. All questions answered. Will call if further needed.
--- NOTE | 2020-01-27 12:26 | PDOC ---
PULMONARY PROGRESS NOTES Subjective Intubated 01/24/20 Assist-control ventilation, sedated Vitals Vital Signs Date Time Temp Pulse Resp B/P (MAP) Pulse Ox O2 Delivery O2 Flow Rate FiO2 01/27/20 11:16 97 Ventilator 01/27/20 11:00 41 27 168/105 (126) 01/27/20 08:00 97.3 97.3 01/27/20 05:26 40.0 Comments ros unable to obtain sedated on vent Visual exam performed due to COVID-19 pandemic Patient appears to be comfortable in sync with the ventilator, no significant Labs Laboratory Tests Test 01/26/20 06:28 01/26/20 08:30 01/27/20 05:10 01/27/20 08:15 Sodium Level 144 mmol/L (136-145) Potassium Level 5.2 mmol/L (3.5-5.1) Chloride Level 109 mmol/L (98-107) Carbon Dioxide Level 28 mmol/L (21-32) Anion Gap 7 (6-14) Blood Urea Nitrogen 25 mg/dL (7-20) Creatinine 0.9 mg/dL (0.6-1.0) Estimated GFR (Cockcroft-Gault) 68.0 Glucose Level 147 mg/dL (70-99) Calcium Level 7.8 mg/dL (8.5-10.1) O2 Saturation 93 % (92-99) 89 % (92-99) Arterial Blood pH 7.43 (7.35-7.45) 7.43 (7.35-7.45) Arterial Blood pCO2 at Patient Temp 33 mmHg (35-46) 35 mmHg (35-46) Arterial Blood pO2 at Patient Temp 71 mmHg (75-108) 63 mmHg (75-108) Arterial Blood HCO3 22 mmol/L (21-28) 22 mmol/L (21-28) Arterial Blood Base Excess -2 mmol/L (-3-3) -2 mmol/L (-3-3) FiO2 80 80 White Blood Count 10.1 x10^3/uL (4.0-11.0) Red Blood Count 3.90 x10^6/uL (3.50-5.40) Hemoglobin 11.0 g/dL (12.0-15.5) Hematocrit 33.1 % (36.0-47.0) Mean Corpuscular Volume 85 fL (79-100) Mean Corpuscular Hemoglobin 28 pg (25-35) Mean Corpuscular Hemoglobin Concent 33 g/dL (31-37) Red Cell Distribution Width 15.2 % (11.5-14.5) Platelet Count 498 x10^3/uL (140-400) Neutrophils (%) (Auto) 89 % (31-73) Lymphocytes (%) (Auto) 4 % (24-48) Monocytes (%) (Auto) 6 % (0-9) Eosinophils (%) (Auto) 0 % (0-3) Basophils (%) (Auto) 0 % (0-3) Neutrophils # (Auto) 9.1 x10^3/uL (1.8-7.7) Lymphocytes # (Auto) 0.4 x10^3/uL (1.0-4.8) Monocytes # (Auto) 0.6 x10^3/uL (0.0-1.1) Eosinophils # (Auto) 0.0 x10^3/uL (0.0-0.7) Basophils # (Auto) 0.0 x10^3/uL (0.0-0.2) Laboratory Tests Test 01/27/20 05:10 01/27/20 08:15 White Blood Count 10.1 x10^3/uL (4.0-11.0) Red Blood Count 3.90 x10^6/uL (3.50-5.40) Hemoglobin 11.0 g/dL (12.0-15.5) Hematocrit 33.1 % (36.0-47.0) Mean Corpuscular Volume 85 fL (79-100) Mean Corpuscular Hemoglobin 28 pg (25-35) Mean Corpuscular Hemoglobin Concent 33 g/dL (31-37) Red Cell Distribution Width 15.2 % (11.5-14.5) Platelet Count 498 x10^3/uL (140-400) Neutrophils (%) (Auto) 89 % (31-73) Lymphocytes (%) (Auto) 4 % (24-48) Monocytes (%) (Auto) 6 % (0-9) Eosinophils (%) (Auto) 0 % (0-3) Basophils (%) (Auto) 0 % (0-3) Neutrophils # (Auto) 9.1 x10^3/uL (1.8-7.7) Lymphocytes # (Auto) 0.4 x10^3/uL (1.0-4.8) Monocytes # (Auto) 0.6 x10^3/uL (0.0-1.1) Eosinophils # (Auto) 0.0 x10^3/uL (0.0-0.7) Basophils # (Auto) 0.0 x10^3/uL (0.0-0.2) O2 Saturation 89 % (92-99) Arterial Blood pH 7.43 (7.35-7.45) Arterial Blood pCO2 at Patient Temp 35 mmHg (35-46) Arterial Blood pO2 at Patient Temp 63 mmHg (75-108) Arterial Blood HCO3 22 mmol/L (21-28) Arterial Blood Base Excess -2 mmol/L (-3-3) FiO2 80 Medications Active Scripts Medications Dose Route/Sig Max Daily Dose Days Date Category Keflex (Cephalexin) 500 Mg Capsule 500 Mg PO QID 10 06/20/18 Rx [place] 5-325 Tablet (Acetaminophen/Hydrocodone Bitart) 1 Each Tablet 1 Tab PO PRN Q6HRS PRN 06/20/18 Rx Comments CXR IMPRESSION: 1. Widespread airspace disease, not significantly changed. 2. Stable position of tubes and lines. Impression . IMPRESSION: 1. Acute hypoxic respiratory failure secondary to COVID-19 pneumonia and sepsis. intubated 01/24/20 2. Abnormal chest x-ray with bilateral patchy infiltrates compatible with COVID-19 pneumonia. COVID-19 + 3. Underlying obesity. 4. Hypertension 5. Hypotension- improved 6, COVID-19 sepsis Plan . Continue current A/C mode Antibiotics per ID--rocephin and azithromycin Status post plasma exchange 01/22 Continue steroids Start tube feeding today D/W RN and RT CODE: FULL DVT/GI PPX: lovenox/pepcid LEIF COBB MD Jan 27, 2020 12:26
[2020-01-27] MEDS: MIDAZOLAM 100mg/100ml NS BAG 100 ML IV PRN (12:34)
[2020-01-27] MEDS: cefTRIAXone IV Push 1 GM VIAL. IVP SCH (19:48)
[2020-01-28] VITALS (23 sets, daily range): BP systolic 113–172; BP diastolic 51–93
[2020-01-28] MEDS: MIDAZOLAM 100mg/100ml NS BAG 100 ML IV PRN ×2 (00:12→13:48)
[2020-01-28 06:06] LABS: BASO % 0 % (0-3); EOS % 0 % (0-3); HEMATOCRIT 33.5 % (36.0-47.0); HEMOGLOBIN 11.3 g/dL (12.0-15.5); LYMPH # 0.4 x10^3/uL (1.0-4.8); LYMPH % 4 % (24-48); MEAN CORPUSCULAR HEMOGLOBIN 28 pg (25-35); MEAN CORPUSCULAR HGB CONC 34 g/dL (31-37); MEAN CORPUSCULAR VOLUME 84 fL (79-100); MONO # 0.5 x10^3/uL (0.0-1.1); MONO % 5 % (0-9); NEUT # 9.8 x10^3/uL (1.8-7.7); NEUT % 91 % (31-73); PLATELET COUNT 478 x10^3/uL (140-400); RED CELL DISTRIBUTION WIDTH 15.3 % (11.5-14.5); WHITE BLOOD COUNT 10.7 x10^3/uL (4.0-11.0)
[2020-01-28 06:27] LABS: ALBUMIN 1.9 g/dL (3.4-5.0); ALBUMIN/GLOBULIN RATIO 0.5 (1.0-1.7); CALCIUM 7.9 mg/dL (8.5-10.1); CREATININE 0.7 mg/dL (0.6-1.0); GFR 90.9; POTASSIUM 4.7 mmol/L (3.5-5.1); TOTAL BILIRUBIN 0.2 mg/dL (0.2-1.0); TOTAL PROTEIN 5.9 g/dL (6.4-8.2)
--- NOTE | 2020-01-28 08:12 | PDOC ---
PULMONARY PROGRESS NOTES Subjective Intubated 01/24/20 Assist-control ventilation, sedated Vitals Vital Signs Date Time Temp Pulse Resp B/P (MAP) Pulse Ox O2 Delivery O2 Flow Rate FiO2 01/28/20 07:19 97 Ventilator 01/28/20 06:00 41 24 142/74 (96) 01/28/20 04:23 40.0 01/28/20 04:21 98.7 98.7 Comments ros unable to obtain sedated on vent Visual exam performed due to COVID-19 pandemic Patient appears to be comfortable in sync with the ventilator, no significant Labs Laboratory Tests Test 01/26/20 08:30 01/27/20 05:10 01/27/20 08:15 01/28/20 05:38 O2 Saturation 93 % (92-99) 89 % (92-99) Arterial Blood pH 7.43 (7.35-7.45) 7.43 (7.35-7.45) Arterial Blood pCO2 at Patient Temp 33 mmHg (35-46) 35 mmHg (35-46) Arterial Blood pO2 at Patient Temp 71 mmHg (75-108) 63 mmHg (75-108) Arterial Blood HCO3 22 mmol/L (21-28) 22 mmol/L (21-28) Arterial Blood Base Excess -2 mmol/L (-3-3) -2 mmol/L (-3-3) FiO2 80 80 White Blood Count 10.1 x10^3/uL (4.0-11.0) Red Blood Count 3.90 x10^6/uL (3.50-5.40) Hemoglobin 11.0 g/dL (12.0-15.5) Hematocrit 33.1 % (36.0-47.0) Mean Corpuscular Volume 85 fL (79-100) Mean Corpuscular Hemoglobin 28 pg (25-35) Mean Corpuscular Hemoglobin Concent 33 g/dL (31-37) Red Cell Distribution Width 15.2 % (11.5-14.5) Platelet Count 498 x10^3/uL (140-400) Neutrophils (%) (Auto) 89 % (31-73) Lymphocytes (%) (Auto) 4 % (24-48) Monocytes (%) (Auto) 6 % (0-9) Eosinophils (%) (Auto) 0 % (0-3) Basophils (%) (Auto) 0 % (0-3) Neutrophils # (Auto) 9.1 x10^3/uL (1.8-7.7) Lymphocytes # (Auto) 0.4 x10^3/uL (1.0-4.8) Monocytes # (Auto) 0.6 x10^3/uL (0.0-1.1) Eosinophils # (Auto) 0.0 x10^3/uL (0.0-0.7) Basophils # (Auto) 0.0 x10^3/uL (0.0-0.2) Glucose (Fingerstick) 154 mg/dL (70-99) Test 01/28/20 05:40 White Blood Count 10.7 x10^3/uL (4.0-11.0) Red Blood Count 4.00 x10^6/uL (3.50-5.40) Hemoglobin 11.3 g/dL (12.0-15.5) Hematocrit 33.5 % (36.0-47.0) Mean Corpuscular Volume 84 fL (79-100) Mean Corpuscular Hemoglobin 28 pg (25-35) Mean Corpuscular Hemoglobin Concent 34 g/dL (31-37) Red Cell Distribution Width 15.3 % (11.5-14.5) Platelet Count 478 x10^3/uL (140-400) Neutrophils (%) (Auto) 91 % (31-73) Lymphocytes (%) (Auto) 4 % (24-48) Monocytes (%) (Auto) 5 % (0-9) Eosinophils (%) (Auto) 0 % (0-3) Basophils (%) (Auto) 0 % (0-3) Neutrophils # (Auto) 9.8 x10^3/uL (1.8-7.7) Lymphocytes # (Auto) 0.4 x10^3/uL (1.0-4.8) Monocytes # (Auto) 0.5 x10^3/uL (0.0-1.1) Eosinophils # (Auto) 0.0 x10^3/uL (0.0-0.7) Basophils # (Auto) 0.0 x10^3/uL (0.0-0.2) Sodium Level 139 mmol/L (136-145) Potassium Level 4.7 mmol/L (3.5-5.1) Chloride Level 105 mmol/L (98-107) Carbon Dioxide Level 27 mmol/L (21-32) Anion Gap 7 (6-14) Blood Urea Nitrogen 24 mg/dL (7-20) Creatinine 0.7 mg/dL (0.6-1.0) Estimated GFR (Cockcroft-Gault) 90.9 BUN/Creatinine Ratio 34 (6-20) Glucose Level 154 mg/dL (70-99) Calcium Level 7.9 mg/dL (8.5-10.1) Total Bilirubin 0.2 mg/dL (0.2-1.0) Aspartate Amino Transf (AST/SGOT) 22 U/L (15-37) Alanine Aminotransferase (ALT/SGPT) 17 U/L (14-59) Alkaline Phosphatase 84 U/L (46-116) Total Protein 5.9 g/dL (6.4-8.2) Albumin 1.9 g/dL (3.4-5.0) Albumin/Globulin Ratio 0.5 (1.0-1.7) Laboratory Tests Test 01/27/20 08:15 01/28/20 05:38 01/28/20 05:40 O2 Saturation 89 % (92-99) Arterial Blood pH 7.43 (7.35-7.45) Arterial Blood pCO2 at Patient Temp 35 mmHg (35-46) Arterial Blood pO2 at Patient Temp 63 mmHg (75-108) Arterial Blood HCO3 22 mmol/L (21-28) Arterial Blood Base Excess -2 mmol/L (-3-3) FiO2 80 Glucose (Fingerstick) 154 mg/dL (70-99) White Blood Count 10.7 x10^3/uL (4.0-11.0) Red Blood Count 4.00 x10^6/uL (3.50-5.40) Hemoglobin 11.3 g/dL (12.0-15.5) Hematocrit 33.5 % (36.0-47.0) Mean Corpuscular Volume 84 fL (79-100) Mean Corpuscular Hemoglobin 28 pg (25-35) Mean Corpuscular Hemoglobin Concent 34 g/dL (31-37) Red Cell Distribution Width 15.3 % (11.5-14.5) Platelet Count 478 x10^3/uL (140-400) Neutrophils (%) (Auto) 91 % (31-73) Lymphocytes (%) (Auto) 4 % (24-48) Monocytes (%) (Auto) 5 % (0-9) Eosinophils (%) (Auto) 0 % (0-3) Basophils (%) (Auto) 0 % (0-3) Neutrophils # (Auto) 9.8 x10^3/uL (1.8-7.7) Lymphocytes # (Auto) 0.4 x10^3/uL (1.0-4.8) Monocytes # (Auto) 0.5 x10^3/uL (0.0-1.1) Eosinophils # (Auto) 0.0 x10^3/uL (0.0-0.7) Basophils # (Auto) 0.0 x10^3/uL (0.0-0.2) Sodium Level 139 mmol/L (136-145) Potassium Level 4.7 mmol/L (3.5-5.1) Chloride Level 105 mmol/L (98-107) Carbon Dioxide Level 27 mmol/L (21-32) Anion Gap 7 (6-14) Blood Urea Nitrogen 24 mg/dL (7-20) Creatinine 0.7 mg/dL (0.6-1.0) Estimated GFR (Cockcroft-Gault) 90.9 BUN/Creatinine Ratio 34 (6-20) Glucose Level 154 mg/dL (70-99) Calcium Level 7.9 mg/dL (8.5-10.1) Total Bilirubin 0.2 mg/dL (0.2-1.0) Aspartate Amino Transf (AST/SGOT) 22 U/L (15-37) Alanine Aminotransferase (ALT/SGPT) 17 U/L (14-59) Alkaline Phosphatase 84 U/L (46-116) Total Protein 5.9 g/dL (6.4-8.2) Albumin 1.9 g/dL (3.4-5.0) Albumin/Globulin Ratio 0.5 (1.0-1.7) Medications Active Scripts Medications Dose Route/Sig Max Daily Dose Days Date Category Keflex (Cephalexin) 500 Mg Capsule 500 Mg PO QID 10 06/20/18 Rx [place] 5-325 Tablet (Acetaminophen/Hydrocodone Bitart) 1 Each Tablet 1 Tab PO PRN Q6HRS PRN 06/20/18 Rx Comments CXR IMPRESSION: 1. Widespread airspace disease, not significantly changed. 2. Stable position of tubes and lines. Impression . IMPRESSION: 1. Acute hypoxic respiratory failure secondary to COVID-19 pneumonia and sepsis. intubated 01/24/20 2. Abnormal chest x-ray with bilateral patchy infiltrates compatible with COVID-19 pneumonia. COVID-19 + 3. Underlying obesity. 4. Hypertension 5. Hypotension- improved 6, COVID-19 sepsis Plan . Continue current A/C mode, 80% FiO2, ABG noted Case discussed with RT, and RN Antibiotics per ID--rocephin and azithromycin Status post plasma exchange 01/22 Continue steroids Start tube feeding today CODE: FULL DVT/GI PPX: lovenox/pepcid LEIF COBB MD Jan 28, 2020 08:12
--- NOTE | 2020-01-28 08:23 | PDOC ---
Infectious Disease Note Subjective: Subjective Patient intubated/sedated Vital Signs: Vital Signs Vital Signs Date Time Temp Pulse Resp B/P (MAP) Pulse Ox O2 Delivery O2 Flow Rate FiO2 01/28/20 07:19 97 Ventilator 01/28/20 06:00 41 24 142/74 (96) 01/28/20 04:23 40.0 01/28/20 04:21 98.7 98.7 Physical Exam: PHYSICAL EXAM GENERAL: Orally intubated sedated on ventilator VITAL SIGNS: Stable HEENT: Both pupils are round and reacting. No conjunctival lesion, no lesion in the mouth. NECK: Supple, no JVP, no lymphadenopathy. LUNGS: Clear. HEART: S1, S2 regular. ABDOMEN: Benign. EXTREMITIES: No edema or cyanosis. SKIN: Unremarkable. NEUROLOGIC: Sedated on a ventilator deficit. Medications: Inpatient Meds: Current Medications Medications (Trade) Dose Ordered Sig/Wei Start Time Stop Time Status Last Admin Dose Admin Acetaminophen (Tylenol) 650 mg PRN Q6HRS PRN 01/21/20 19:45 01/25/20 20:45 650 MG Al Hydroxide/Mg Hydroxide (Mylanta Plus Xs) 30 ml PRN Q3HRS PRN 01/21/20 19:45 Azithromycin 250 ml @ 250 mls/hr 1X ONCE 01/21/20 19:45 01/21/20 20:44 UNV Azithromycin 500 mg/Sodium Chloride 250 ml @ 250 mls/hr Q24H 01/22/20 19:00 01/26/20 09:05 DC 01/25/20 19:00 250 MLS/HR Ceftriaxone Sodium (Rocephin) 1 gm Q24H 01/22/20 20:00 01/27/20 19:48 1 GM Dexamethasone Sodium Phosphate (Decadron) 6 mg DAILY 01/22/20 09:00 01/27/20 09:04 6 MG Enoxaparin Sodium (Lovenox 40mg Syringe) 40 mg BID 01/22/20 11:00 01/27/20 20:35 40 MG Etomidate (Amidate) 20 mg STK-MED ONCE 01/23/20 23:00 01/24/20 08:24 DC Famotidine (Pepcid) 20 mg BID 01/21/20 21:00 01/27/20 20:35 20 MG Fentanyl Citrate 30 ml @ 0 mls/hr CONT PRN 01/23/20 22:45 01/28/20 03:51 3.75 MLS/HR Lactobacillus Rhamnosus (Culturelle) 1 cap BID 01/22/20 09:00 01/27/20 20:35 1 CAP Lorazepam (Ativan Inj) 0.05 mg 1X ONCE 01/23/20 21:15 01/23/20 21:31 DC 01/23/20 21:13 0.05 MG Magnesium Hydroxide (Milk Of Magnesia) 2,400 mg PRN Q12HR PRN 01/21/20 19:45 Midazolam HCl 100 ml @ 0 mls/hr CONT PRN 01/23/20 22:45 01/28/20 00:12 8 MLS/HR Non-Formulary Medication 1 ea/ Sodium Chloride 230 ml @ 460 mls/hr DAILY 01/23/20 09:00 01/26/20 09:29 DC 01/26/20 09:58 460 MLS/HR Norepinephrine Bitartrate 8 mg/ Dextrose 258 ml @ 20.666 mls/ hr CONT PRN 01/24/20 02:15 01/24/20 12:28 10.333 MLS/HR Ondansetron HCl (Zofran) 4 mg PRN Q6HRS PRN 01/21/20 19:45 Propofol 100 ml @ 0 mls/hr CONT PRN 01/23/20 22:45 Ringer's Solution 1,000 ml @ 75 mls/hr [id number] 01/24/20 12:30 01/26/20 09:17 DC 01/25/20 16:21 75 MLS/HR Senna/Docusate Sodium (Senna Plus) 1 tab BID 01/21/20 21:00 01/27/20 20:35 1 TAB Sodium Chloride (Normal Saline Flush) 3 ml QSHIFT PRN 01/21/20 19:45 Sterile Water (WATER for RESP) 1,000 ml CONT PRN 01/22/20 04:30 01/23/20 12:46 1,000 ML Succinylcholine Chloride (Anectine) 200 mg STK-MED ONCE 01/23/20 23:00 01/24/20 08:24 DC Vecuronium [place] (Norcuron Bolus) 6 mg PRN Q4HRS PRN 01/24/20 04:30 01/24/20 15:40 6 MG Labs: Lab Laboratory Tests Test 01/28/20 05:38 01/28/20 05:40 Glucose (Fingerstick) 154 mg/dL (70-99) White Blood Count 10.7 x10^3/uL (4.0-11.0) Red Blood Count 4.00 x10^6/uL (3.50-5.40) Hemoglobin 11.3 g/dL (12.0-15.5) Hematocrit 33.5 % (36.0-47.0) Mean Corpuscular Volume 84 fL (79-100) Mean Corpuscular Hemoglobin 28 pg (25-35) Mean Corpuscular Hemoglobin Concent 34 g/dL (31-37) Red Cell Distribution Width 15.3 % (11.5-14.5) Platelet Count 478 x10^3/uL (140-400) Neutrophils (%) (Auto) 91 % (31-73) Lymphocytes (%) (Auto) 4 % (24-48) Monocytes (%) (Auto) 5 % (0-9) Eosinophils (%) (Auto) 0 % (0-3) Basophils (%) (Auto) 0 % (0-3) Neutrophils # (Auto) 9.8 x10^3/uL (1.8-7.7) Lymphocytes # (Auto) 0.4 x10^3/uL (1.0-4.8) Monocytes # (Auto) 0.5 x10^3/uL (0.0-1.1) Eosinophils # (Auto) 0.0 x10^3/uL (0.0-0.7) Basophils # (Auto) 0.0 x10^3/uL (0.0-0.2) Sodium Level 139 mmol/L (136-145) Potassium Level 4.7 mmol/L (3.5-5.1) Chloride Level 105 mmol/L (98-107) Carbon Dioxide Level 27 mmol/L (21-32) Anion Gap 7 (6-14) Blood Urea Nitrogen 24 mg/dL (7-20) Creatinine 0.7 mg/dL (0.6-1.0) Estimated GFR (Cockcroft-Gault) 90.9 BUN/Creatinine Ratio 34 (6-20) Glucose Level 154 mg/dL (70-99) Calcium Level 7.9 mg/dL (8.5-10.1) Total Bilirubin 0.2 mg/dL (0.2-1.0) Aspartate Amino Transf (AST/SGOT) 22 U/L (15-37) Alanine Aminotransferase (ALT/SGPT) 17 U/L (14-59) Alkaline Phosphatase 84 U/L (46-116) Total Protein 5.9 g/dL (6.4-8.2) Albumin 1.9 g/dL (3.4-5.0) Albumin/Globulin Ratio 0.5 (1.0-1.7) Objective: Assessment: COVID 19 infection -Status post plasma and Remdesivir treatment -CRP 163 ( 101) Pneumonia from COVID-19. Acute hypoxic resp failure from above Fever. Improved Obesity. Hypertension. Hypernatremia Plan: Plan of Care Completed Plasma and Remsidivir cont supportive care cont Rocephin completed azithromycin REESE ALVA MD Jan 28, 2020 08:23
[2020-01-28 08:39] LABS: BASE EXCESS ABG -2 mmol/L (-3-3); HCO3 ABG 22 mmol/L (21-28); PCO2 ABG 33 mmHg (35-46); PO2 ABG 79 mmHg (75-108); SAT O2 ABG 94 % (92-99)
[2020-01-28 08:43] LABS: FIO2 ABG 80% + 12 PEEP
[2020-01-28] MEDS: FAMOTIDINE 20 MG TABLET. PO SCH ×2 (09:00→20:55)
[2020-01-28] MEDS: DEXAMETHASONE SOD PHOS 4 MG/ML VIAL IVP SCH (09:00)
[2020-01-28] MEDS: LACTOBACILLUS RHAMNOSUS GG 1 CAPSULE. PO SCH ×2 (09:00→20:55)
[2020-01-28] MEDS: SENNOSIDES/DOCUSATE 8.6/50MG TABLET. PO SCH ×2 (09:00→20:55)
[2020-01-28] MEDS: ENOXAPARIN 40 MG/0.4 ML SYRINGE. SQ SCH ×2 (09:01→20:56)
--- NOTE | 2020-01-28 09:45 | PDOC ---
PROGRESS NOTES Chief Complaint Chief Complaint Assessment/Plan ASSESSMENT Acute Hypoxic Respiratory Failure Secondary to COVID-PNA multifocal pulmonary infiltrates.// follow-up to resolution. super Morbid Obesity HTN NORMOCYTIC ANEMIA severe protein-caloric malnutrition PLAN - CONT ICU given hypoxic resp failure - dexamethasone 6 mg IV daily - finished zithromax , continue Rocephin - ID consult for plasma and remdesevir // completed - pulm consult given hypoxia - dvt ppx: lovenox 40 MG BID - GI ppx: pepcid FULL CODE VENT ICU -Status post plasma and Remdesivir treatment -CRP 163 LOS greater than 2 midnights given resp failure, COVID PNA 35 MIN CC TIME The patient was evaluated during the global COVID-19 pandemic, and that diagnosis was suspected/considered upon their initial presentation. Their evaluation, treatment and testing was consistent with current guidelines for patients who present with complaints or symptoms that may be related to COVID- 19. VTE Prophylaxis Ordered VTE Prophylaxis Devices: Yes VTE Pharmacological Prophylaxi: Yes History of Present Illness History of Present Illness 01/22 t max 99.6 01/23 No acute events reported overnight, case discussed with nursing staff patient in no acute distress continues with ventilatory support 01/24 Patient with no acute events reported overnight. No new complaints continues to have ventilatory support requirements. No concerns voiced by nursing staff 01/27 No acute events reported overnight, case discussed with nursing staff patient in no acute distress cxr with diffuse infiltrates 34 min cc time COVID-19 CRITERIA: The patient was evaluated during the global COVID-19 pandemic, and that diagnosis was suspected/considered upon their initial presentation. Their evaluation, treatment and testing was consistent with current guidelines for patients who present with complaints or symptoms that may be related to COVID-19. Justicifation of Admission Dx: Justicifation of Admission Dx: Justifications for Admission: Justification of Admission Dx: Yes Respiratory Failure: Severe Resp Distress Vitals Vitals Vital Signs Date Time Temp Pulse Resp B/P (MAP) Pulse Ox O2 Delivery O2 Flow Rate FiO2 01/28/20 08:00 47 28 128/65 (86) 95 Ventilator 01/28/20 04:23 40.0 01/28/20 04:21 98.7 98.7 Physical Exam Physical Exam GENERAL: Orally intubated sedated on ventilator VITAL SIGNS: Stable HEENT: Both pupils are round and reacting. No conjunctival lesion, no lesion in the mouth. NECK: Supple, no JVP, no lymphadenopathy. LUNGS: Clear. HEART: S1, S2 regular. ABDOMEN: Benign. EXTREMITIES: No edema or cyanosis. SKIN: Unremarkable. NEUROLOGIC: Sedated on a ventilator deficit. General: Oriented X3, Cooperative, mild distress Extremities: No clubbing, No cyanosis Labs LABS Laboratory Tests Test 01/28/20 05:38 01/28/20 05:40 01/28/20 08:35 Glucose (Fingerstick) 154 mg/dL (70-99) White Blood Count 10.7 x10^3/uL (4.0-11.0) Red Blood Count 4.00 x10^6/uL (3.50-5.40) Hemoglobin 11.3 g/dL (12.0-15.5) Hematocrit 33.5 % (36.0-47.0) Mean Corpuscular Volume 84 fL (79-100) Mean Corpuscular Hemoglobin 28 pg (25-35) Mean Corpuscular Hemoglobin Concent 34 g/dL (31-37) Red Cell Distribution Width 15.3 % (11.5-14.5) Platelet Count 478 x10^3/uL (140-400) Neutrophils (%) (Auto) 91 % (31-73) Lymphocytes (%) (Auto) 4 % (24-48) Monocytes (%) (Auto) 5 % (0-9) Eosinophils (%) (Auto) 0 % (0-3) Basophils (%) (Auto) 0 % (0-3) Neutrophils # (Auto) 9.8 x10^3/uL (1.8-7.7) Lymphocytes # (Auto) 0.4 x10^3/uL (1.0-4.8) Monocytes # (Auto) 0.5 x10^3/uL (0.0-1.1) Eosinophils # (Auto) 0.0 x10^3/uL (0.0-0.7) Basophils # (Auto) 0.0 x10^3/uL (0.0-0.2) Sodium Level 139 mmol/L (136-145) Potassium Level 4.7 mmol/L (3.5-5.1) Chloride Level 105 mmol/L (98-107) Carbon Dioxide Level 27 mmol/L (21-32) Anion Gap 7 (6-14) Blood Urea Nitrogen 24 mg/dL (7-20) Creatinine 0.7 mg/dL (0.6-1.0) Estimated GFR (Cockcroft-Gault) 90.9 BUN/Creatinine Ratio 34 (6-20) Glucose Level 154 mg/dL (70-99) Calcium Level 7.9 mg/dL (8.5-10.1) Total Bilirubin 0.2 mg/dL (0.2-1.0) Aspartate Amino Transf (AST/SGOT) 22 U/L (15-37) Alanine Aminotransferase (ALT/SGPT) 17 U/L (14-59) Alkaline Phosphatase 84 U/L (46-116) Total Protein 5.9 g/dL (6.4-8.2) Albumin 1.9 g/dL (3.4-5.0) Albumin/Globulin Ratio 0.5 (1.0-1.7) O2 Saturation 94 % (92-99) Arterial Blood pH 7.43 (7.35-7.45) Arterial Blood pCO2 at Patient Temp 33 mmHg (35-46) Arterial Blood pO2 at Patient Temp 79 mmHg (75-108) Arterial Blood HCO3 22 mmol/L (21-28) Arterial Blood Base Excess -2 mmol/L (-3-3) FiO2 80% + 12 peep Assessment and Plan Assessmemt and Plan Problems Medical Problems: (1) Pneumonia due to COVID-19 virus Status: Acute Comment Review of Relevant I have reviewed the following items stephon (where applicable) has been applied. Labs Laboratory Tests Test 01/27/20 05:10 01/27/20 08:15 01/28/20 05:38 01/28/20 05:40 White Blood Count 10.1 x10^3/uL (4.0-11.0) 10.7 x10^3/uL (4.0-11.0) Red Blood Count 3.90 x10^6/uL (3.50-5.40) 4.00 x10^6/uL (3.50-5.40) Hemoglobin 11.0 g/dL (12.0-15.5) 11.3 g/dL (12.0-15.5) Hematocrit 33.1 % (36.0-47.0) 33.5 % (36.0-47.0) Mean Corpuscular Volume 85 fL (79-100) 84 fL (79-100) Mean Corpuscular Hemoglobin 28 pg (25-35) 28 pg (25-35) Mean Corpuscular Hemoglobin Concent 33 g/dL (31-37) 34 g/dL (31-37) Red Cell Distribution Width 15.2 % (11.5-14.5) 15.3 % (11.5-14.5) Platelet Count 498 x10^3/uL (140-400) 478 x10^3/uL (140-400) Neutrophils (%) (Auto) 89 % (31-73) 91 % (31-73) Lymphocytes (%) (Auto) 4 % (24-48) 4 % (24-48) Monocytes (%) (Auto) 6 % (0-9) 5 % (0-9) Eosinophils (%) (Auto) 0 % (0-3) 0 % (0-3) Basophils (%) (Auto) 0 % (0-3) 0 % (0-3) Neutrophils # (Auto) 9.1 x10^3/uL (1.8-7.7) 9.8 x10^3/uL (1.8-7.7) Lymphocytes # (Auto) 0.4 x10^3/uL (1.0-4.8) 0.4 x10^3/uL (1.0-4.8) Monocytes # (Auto) 0.6 x10^3/uL (0.0-1.1) 0.5 x10^3/uL (0.0-1.1) Eosinophils # (Auto) 0.0 x10^3/uL (0.0-0.7) 0.0 x10^3/uL (0.0-0.7) Basophils # (Auto) 0.0 x10^3/uL (0.0-0.2) 0.0 x10^3/uL (0.0-0.2) O2 Saturation 89 % (92-99) Arterial Blood pH 7.43 (7.35-7.45) Arterial Blood pCO2 at Patient Temp 35 mmHg (35-46) Arterial Blood pO2 at Patient Temp 63 mmHg (75-108) Arterial Blood HCO3 22 mmol/L (21-28) Arterial Blood Base Excess -2 mmol/L (-3-3) FiO2 80 Glucose (Fingerstick) 154 mg/dL (70-99) Sodium Level 139 mmol/L (136-145) Potassium Level 4.7 mmol/L (3.5-5.1) Chloride Level 105 mmol/L (98-107) Carbon Dioxide Level 27 mmol/L (21-32) Anion Gap 7 (6-14) Blood Urea Nitrogen 24 mg/dL (7-20) Creatinine 0.7 mg/dL (0.6-1.0) Estimated GFR (Cockcroft-Gault) 90.9 BUN/Creatinine Ratio 34 (6-20) Glucose Level 154 mg/dL (70-99) Calcium Level 7.9 mg/dL (8.5-10.1) Total Bilirubin 0.2 mg/dL (0.2-1.0) Aspartate Amino Transf (AST/SGOT) 22 U/L (15-37) Alanine Aminotransferase (ALT/SGPT) 17 U/L (14-59) Alkaline Phosphatase 84 U/L (46-116) Total Protein 5.9 g/dL (6.4-8.2) Albumin 1.9 g/dL (3.4-5.0) Albumin/Globulin Ratio 0.5 (1.0-1.7) Test 01/28/20 08:35 O2 Saturation 94 % (92-99) Arterial Blood pH 7.43 (7.35-7.45) Arterial Blood pCO2 at Patient Temp 33 mmHg (35-46) Arterial Blood pO2 at Patient Temp 79 mmHg (75-108) Arterial Blood HCO3 22 mmol/L (21-28) Arterial Blood Base Excess -2 mmol/L (-3-3) FiO2 80% + 12 peep Laboratory Tests Test 01/28/20 05:38 01/28/20 05:40 01/28/20 08:35 Glucose (Fingerstick) 154 mg/dL (70-99) White Blood Count 10.7 x10^3/uL (4.0-11.0) Red Blood Count 4.00 x10^6/uL (3.50-5.40) Hemoglobin 11.3 g/dL (12.0-15.5) Hematocrit 33.5 % (36.0-47.0) Mean Corpuscular Volume 84 fL (79-100) Mean Corpuscular Hemoglobin 28 pg (25-35) Mean Corpuscular Hemoglobin Concent 34 g/dL (31-37) Red Cell Distribution Width 15.3 % (11.5-14.5) Platelet Count 478 x10^3/uL (140-400) Neutrophils (%) (Auto) 91 % (31-73) Lymphocytes (%) (Auto) 4 % (24-48) Monocytes (%) (Auto) 5 % (0-9) Eosinophils (%) (Auto) 0 % (0-3) Basophils (%) (Auto) 0 % (0-3) Neutrophils # (Auto) 9.8 x10^3/uL (1.8-7.7) Lymphocytes # (Auto) 0.4 x10^3/uL (1.0-4.8) Monocytes # (Auto) 0.5 x10^3/uL (0.0-1.1) Eosinophils # (Auto) 0.0 x10^3/uL (0.0-0.7) Basophils # (Auto) 0.0 x10^3/uL (0.0-0.2) Sodium Level 139 mmol/L (136-145) Potassium Level 4.7 mmol/L (3.5-5.1) Chloride Level 105 mmol/L (98-107) Carbon Dioxide Level 27 mmol/L (21-32) Anion Gap 7 (6-14) Blood Urea Nitrogen 24 mg/dL (7-20) Creatinine 0.7 mg/dL (0.6-1.0) Estimated GFR (Cockcroft-Gault) 90.9 BUN/Creatinine Ratio 34 (6-20) Glucose Level 154 mg/dL (70-99) Calcium Level 7.9 mg/dL (8.5-10.1) Total Bilirubin 0.2 mg/dL (0.2-1.0) Aspartate Amino Transf (AST/SGOT) 22 U/L (15-37) Alanine Aminotransferase (ALT/SGPT) 17 U/L (14-59) Alkaline Phosphatase 84 U/L (46-116) Total Protein 5.9 g/dL (6.4-8.2) Albumin 1.9 g/dL (3.4-5.0) Albumin/Globulin Ratio 0.5 (1.0-1.7) O2 Saturation 94 % (92-99) Arterial Blood pH 7.43 (7.35-7.45) Arterial Blood pCO2 at Patient Temp 33 mmHg (35-46) Arterial Blood pO2 at Patient Temp 79 mmHg (75-108) Arterial Blood HCO3 22 mmol/L (21-28) Arterial Blood Base Excess -2 mmol/L (-3-3) FiO2 80% + 12 peep Medications Current Medications Acetaminophen (Tylenol) 1,000 mg 1X ONCE PO Last administered on 01/21/20at 17:00; Start 01/21/20 at 17:00; Stop 01/21/20 at 17:01; Status DC Ondansetron HCl (Zofran) 4 mg PRN Q8HRS PRN IV NAUSEA/VOMITING; Start 01/21/20 at 18:00; Stop 01/22/20 at 07:55; Status DC Dexamethasone Sodium Phosphate (Decadron) 6 mg 1X ONCE IVP Last administered o n 01/21/20at 18:14; Start 01/21/20 at 18:00; Stop 01/21/20 at 18:01; Status DC Ceftriaxone Sodium (Rocephin) 1 gm 1X ONCE IVP Last administered on 01/21/20at 18:14; Start 01/21/20 at 18:00; Stop 01/21/20 at 18:01; Status DC Azithromycin 500 mg/Sodium Chloride 250 ml @ 250 mls/hr Q24H IV Last administered on 01/25/20at 19:00; Start 01/22/20 at 19:00; Stop 01/26/20 at 09:05; Status DC Azithromycin 250 ml @ 250 mls/hr 1X ONCE IV Last administered on 01/21/20at 18:25; Start 01/21/20 at 18:15; Stop 01/21/20 at 19:14; Status DC Dexamethasone Sodium Phosphate (Decadron) 6 mg DAILY IVP Last administered on 01/28/20at 09:00; Start 01/22/20 at 09:00 Ceftriaxone Sodium (Rocephin) 1 gm Q24H IVP Last administered on 01/27/20at 19:48; Start 01/22/20 at 20:00 Azithromycin 250 ml @ 250 mls/hr 1X ONCE IV ; Start 01/21/20 at 19:45; Stop 01/21/20 at 20:44; Status UNV Acetaminophen (Tylenol) 650 mg PRN Q6HRS PRN PO Headaches, Temp > 101.5' Last administered on 01/25/20at 20:45; Start 01/21/20 at 19:45 Ondansetron HCl (Zofran) 4 mg PRN Q6HRS PRN IVP NAUSEA/VOMITING; Start 01/21/20 at 19:45 Al Hydroxide/Mg Hydroxide (Mylanta Plus Xs) 30 ml PRN Q3HRS PRN PO HEARTBURN / GAS; Start 01/21/20 at 19:45 Famotidine (Pepcid) 20 mg BID PO Last administered on 01/28/20at 09:00; Start 01/21/20 at 21:00 Enoxaparin Sodium (Lovenox 40mg Syringe) 40 mg Q24H SQ Last administered on 01/21/20at 21:07; Start 01/21/20 at 20:00; Stop 01/22/20 at 10:45; Status DC Sodium Chloride (Normal Saline Flush) 3 ml QSHIFT PRN IV AFTER MEDS AND BLOOD D RAWS; Start 01/21/20 at 19:45 Senna/Docusate Sodium (Senna Plus) 1 tab BID PO Last administered on 01/27/20at 20:35; Start 01/21/20 at 21:00 Magnesium Hydroxide (Milk Of Magnesia) 2,400 mg PRN Q12HR PRN PO CONSTIPATION; Start 01/21/20 at 19:45 Sterile Water (WATER for RESP) 1,000 ml CONT PRN INH VIA VAPOTHERM DEVICE Last administered on 01/23/20at 12:46; Start 01/22/20 at 04:30 Lactobacillus Rhamnosus (Culturelle) 1 cap BID PO Last administered on 01/28/20at 09:00; Start 01/22/20 at 09:00 Non-Formulary Medication 1 ea/ Sodium Chloride 210 ml @ 420 mls/hr ONCE ONCE IV Last administered on 01/22/20at 10:44; Start 01/22/20 at 11:00; Stop 01/22/20 at 11:29; Status DC Non-Formulary Medication 1 ea/ Sodium Chloride 230 ml @ 460 mls/hr DAILY IV Last administered on 01/26/20at 09:58; Start 01/23/20 at 09:00; Stop 01/26/20 at 09:29; Status DC Enoxaparin Sodium (Lovenox 40mg Syringe) 40 mg BID SQ Last administered on 01/28/20at 09:01; Start 01/22/20 at 11:00 Lorazepam (Ativan Inj) 0.5 mg PRN Q4HRS PRN IVP ANXIETY / AGITATION; Start 01/23/20 at 21:00 Lorazepam (Ativan Inj) 0.05 mg 1X ONCE IVP Last administered on 01/23/20at 21:13; Start 01/23/20 at 21:15; Stop 01/23/20 at 21:31; Status DC Fentanyl Citrate 30 ml @ 0 mls/hr CONT PRN IV SEE PROTOCOL Last administered on 01/28/20at 03:51; Start 01/23/20 at 22:45 Propofol 100 ml @ 0 mls/hr CONT PRN IV SEE PROTOCOL; Start 01/23/20 at 22:45 Midazolam HCl 100 ml @ 0 mls/hr CONT PRN IV SEE PROTOCOL Last administered on 01/28/20at 00:12; Start 01/23/20 at 22:45 Vecuronium [place] (Norcuron Bolus) 10 mg STK-MED ONCE IV ; Start 01/23/20 at 23:24; Stop 01/23/20 at 23:25; Status DC Vecuronium [place] (Norcuron Bolus) 60 mg 1X ONCE IV Last administered on 01/23/20at 23:30; Start 01/23/20 at 23:30; Stop 01/23/20 at 23:35; Status DC Norepinephrine Bitartrate 8 mg/ Dextrose 258 ml @ 20.666 mls/ hr CONT PRN IV PER PROTOCOL Last administered on 01/24/20at 12:28; Start 01/24/20 at 02:15 Vecuronium [place] (Norcuron Bolus) 6 mg PRN Q4HRS PRN IV SEDATION Last administered on 01/24/20at 15:40; Start 01/24/20 at 04:30 Succinylcholine [place]lor[place] (Anectine) 200 mg STK-MED ONCE .ROUTE ; Start 01/23/20 at 23:00; Stop 01/24/20 at 08:24; Status DC Etomidate (Amidate) 20 mg STK-MED ONCE IV ; Start 01/23/20 at 23:00; Stop 01/24/20 at 08:24; Status DC Ringer's Solution 1,000 ml @ 75 mls/hr [id number] IV Last administered on 01/25/20at 16:21; Start 01/24/20 at 12:30; Stop 01/26/20 at 09:17; Status DC Active Scripts Active Keflex (Cephalexin) 500 Mg Capsule 500 Mg PO QID 10 Days [place] 5-325 Tablet (Acetaminophen/Hydrocodone Bitart) 1 Each Tablet 1 Tab PO PRN Q6HRS PRN Vitals/I & O Vital Sign - Last 24 Hours 01/27/20 01/27/20 01/27/20 01/27/20 10:00 11:00 11:16 12:00 Pulse 42 41 Resp B/P (MAP) 156/80 (105) 168/105 (126) Pulse Ox 96 96 97 O2 Delivery Ventilator Ventilator Ventilator Mechanical Ventilator 01/27/20 01/27/20 01/27/20 01/27/20 12:00 13:00 13:01 13:31 Temp 96.5 96.5 Pulse 43 40 Resp B/P (MAP) 167/80 (109) 159/80 (106) Pulse Ox 95 96 96 96 O2 Delivery Ventilator Ventilator Ventilator Ventilator 01/27/20 01/27/20 01/27/20 01/27/20 14:00 15:00 15:26 16:00 Temp 97.9 97.9 Pulse 42 41 46 Resp B/P (MAP) 140/71 (94) 158/77 (104) 137/69 (91) Pulse Ox 95 96 95 96 O2 Delivery Ventilator Ventilator Ventilator Ventilator 01/27/20 01/27/20 01/27/20 01/27/20 16:00 17:00 18:00 19:00 Pulse 48 43 44 Resp 18 B/P (MAP) 124/61 (82) 144/79 (100) 136/64 (88) Pulse Ox 94 96 94 O2 Delivery Mechanical Ventilator Ventilator Ventilator Ventilator 01/27/20 01/27/20 01/27/20 01/27/20 20:00 20:00 20:20 20:25 Temp 97.8 97.8 Pulse 41 Resp 28 B/P (MAP) 160/76 (104) Pulse Ox 95 96 95 O2 Delivery Mechanical Ventilator Ventilator Ventilator O2 Flow Rate 40.0 01/27/20 01/27/20 01/27/20 01/27/20 20:59 21:00 22:00 23:00 Pulse 42 47 41 Resp 28 27 B/P (MAP) 149/73 (98) 166/82 (110) 136/68 (90) Pulse Ox 95 96 96 96 O2 Delivery Ventilator Ventilator Ventilator O2 Flow Rate 40.0 01/27/20 01/27/20 01/27/20 01/28/20 23:40 23:59 23:59 01:00 Temp 98.1 98.1 Pulse 43 42 Resp 24 B/P (MAP) 147/74 (98) 133/70 (91) Pulse Ox 95 96 95 O2 Delivery Ventilator Mechanical Ventilator Ventilator Ventilator 01/28/20 01/28/20 01/28/20 01/28/20 02:00 03:00 03:51 04:00 Pulse 41 44 Resp B/P (MAP) 134/68 (90) 145/71 (95) Pulse Ox 95 95 95 O2 Delivery Ventilator Ventilator Mechanical Ventilator O2 Flow Rate 40.0 01/28/20 01/28/20 01/28/20 01/28/20 04:01 04:21 04:23 05:00 Temp 98.7 98.7 Pulse 46 42 Resp B/P (MAP) 113/51 (71) 143/77 (99) Pulse Ox 95 95 95 97 O2 Delivery Ventilator Ventilator Ventilator O2 Flow Rate 40.0 01/28/20 01/28/20 01/28/20 06:00 07:19 08:00 Pulse 41 47 Resp B/P (MAP) 142/74 (96) 128/65 (86) Pulse Ox 96 97 95 O2 Delivery Ventilator Ventilator Ventilator Intake and Output 01/27/20 01/27/20 01/28/20 15:00 23:00 07:00 Intake Total 200 ml 744.3 ml 549 ml Output Total 475 ml 860 ml 700 ml Balance -275 ml -115.7 ml -151 ml JORDY FLORIAN MD Jan 28, 2020 09:45
--- NOTE | 2020-01-28 11:29 | NUR ---
SS following up with discharge planning. SS reviewed pt chart and discussed with RN, Rabia. Pt COVID19 positive and remains on the vent at this time. Pt on IV Rocephin. SS will continue to follow for discharge planning.
--- NOTE | 2020-01-28 13:21 | EKG ---
[facility] [address] [place] [id number] Test Date: 2020-01-28 Test Time: 13:11:28 Pat Name: KELLY RAMOSDepartment: Room: 115 1 Gender: F Rouge Mixer: CARIDAD : 1975 Requested By: JORDY FLORIAN Order Number: [id number] Reading MD: Familia Ludwig Measurements Intervals [place] Rate: 50 P: 49 AL: 138 QRS: 13 QRSD: 82 T: -8 QT: 484 QTc: 444 Interpretive Statements SINUS RHYTHM T ABNORMALITY IN ANTERIOR LEADS INFERIOR LEADS ABNORMAL ECG RI6.02 Compared to ECG 01/21/2020 16:23:56 T-wave abnormality now present Electronically Signed On 02-24-2020 12:43:48 CDT by Familia Ludwig
[2020-01-28] MEDS ORDERED: hydrALAZINE 20 MG/ML VIAL. IVP PRN (14:00)
--- NOTE | 2020-01-28 14:05 | PDOC2 ---
CARDIAC CONSULT DATE OF CONSULT Date of Consult DATE: 01/28/20 TIME: 13:52 REASON FOR CONSULT Reason for Consult: bradycardia REFERRING PHYSICIAN Referring Physician: Fullbright SOURCE Source: Chart review HISTORY OF PRESENT ILLNESS HISTORY OF PRESENT ILLNESS This is a 44 yo female admitted for increasing shortness or breath, She is positive for covid. She has been followed by pulmonary and ID. She is notable for covid pneumonia and has been treated with remdesivir and convalescent plasma. No hx of CAD or any arrhythmia. Consult is for bradycardia. She is hemodynamically stable. Her bradycardia is sinus and no pauses. She is currently intubated and no noted AV cara blocking agents and obviously in sedation. PAST MEDICAL HISTORY Cardiovascular: HTN PAST SURGICAL HISTORY Past Surgical History: FAMILY HISTORY Family History: Family History Unknown SOCIAL HISTORY Smoke: No ALCOHOL: none Drugs: None ALLERGIES ALLERGIES: Coded Allergies: ibuprofen (Verified Allergy, Intermediate, 06/20/18) ROS Review of System unobtainable, intubated PHYSICAL EXAM General: Other (sedated) HEENT: Atraumatic Lungs: Other (diminished, vent) Heart: Regular rate (SR/SB) Abdomen: Other (obese) Extremities: No cyanosis Skin: No breakdown Neuro: Other (sedated) VITALS/I&O VITALS/I&O: Vital Signs Date Time Temp Pulse Resp B/P (MAP) Pulse Ox O2 Delivery O2 Flow Rate FiO2 01/28/20 13:00 46 28 153/87 (109) 94 Ventilator 01/28/20 12:00 97.1 97.1 01/28/20 04:23 40.0 I & O 01/27/20 01/27/20 01/28/20 15:00 23:00 07:00 Intake Total 200 ml 744.3 ml 549 ml Output Total 475 ml 860 ml 700 ml Balance -275 ml -115.7 ml -151 ml LABS Lab: Laboratory Tests Test 01/28/20 05:38 01/28/20 05:40 01/28/20 08:35 Glucose (Fingerstick) 154 mg/dL (70-99) H White Blood Count 10.7 x10^3/uL (4.0-11.0) Red Blood Count 4.00 x10^6/uL (3.50-5.40) Hemoglobin 11.3 g/dL (12.0-15.5) L Hematocrit 33.5 % (36.0-47.0) L Mean Corpuscular Volume 84 fL (79-100) Mean Corpuscular Hemoglobin 28 pg (25-35) Mean Corpuscular Hemoglobin Concent 34 g/dL (31-37) Red Cell Distribution Width 15.3 % (11.5-14.5) H Platelet Count 478 x10^3/uL (140-400) H Neutrophils (%) (Auto) 91 % (31-73) H Lymphocytes (%) (Auto) 4 % (24-48) L Monocytes (%) (Auto) 5 % (0-9) Eosinophils (%) (Auto) 0 % (0-3) Basophils (%) (Auto) 0 % (0-3) Neutrophils # (Auto) 9.8 x10^3/uL (1.8-7.7) H Lymphocytes # (Auto) 0.4 x10^3/uL (1.0-4.8) L Monocytes # (Auto) 0.5 x10^3/uL (0.0-1.1) Eosinophils # (Auto) 0.0 x10^3/uL (0.0-0.7) Basophils # (Auto) 0.0 x10^3/uL (0.0-0.2) Sodium Level 139 mmol/L (136-145) Potassium Level 4.7 mmol/L (3.5-5.1) Chloride Level 105 mmol/L (98-107) Carbon Dioxide Level 27 mmol/L (21-32) Anion Gap 7 (6-14) Blood Urea Nitrogen 24 mg/dL (7-20) H Creatinine 0.7 mg/dL (0.6-1.0) Estimated GFR (Cockcroft-Gault) 90.9 BUN/Creatinine Ratio 34 (6-20) H Glucose Level 154 mg/dL (70-99) H Calcium Level 7.9 mg/dL (8.5-10.1) L Total Bilirubin 0.2 mg/dL (0.2-1.0) Aspartate Amino Transferase (AST) 22 U/L (15-37) Alanine Aminotransferase (ALT) 17 U/L (14-59) Alkaline Phosphatase 84 U/L (46-116) Total Protein 5.9 g/dL (6.4-8.2) L Albumin 1.9 g/dL (3.4-5.0) L Albumin/Globulin Ratio 0.5 (1.0-1.7) L O2 Saturation 94 % (92-99) Arterial Blood pH 7.43 (7.35-7.45) Arterial Blood pCO2 at Patient Temp 33 mmHg (35-46) L Arterial Blood pO2 at Patient Temp 79 mmHg (75-108) Arterial Blood HCO3 22 mmol/L (21-28) Arterial Blood Base Excess -2 mmol/L (-3-3) FiO2 80% + 12 peep Laboratory Tests 01/28/20 05:40 Laboratory Tests 01/28/20 05:40 ASSESSMENT/PLAN ASSESSMENT/PLAN 1. Acute hypoxic respiratory failure with COVID-19 pneumonia and sepsis. intubated 01/24/20 2. Sinus bradycardia: QTc 444, lowest mid 40s, no pauses, hemodynamically stable 3. HTN: controlled 4. Morbid obesity Recommendations 1. Avoid AV cara blocking agents. 2. No arrhythmias, Check TSH 3. Hydralazine IV PRN. Supportive care. RYAN SAVAGE APRN Jan 28, 2020 14:04
--- NOTE | 2020-01-28 15:16 | RAD ---
AP portable chest radiograph 01/28/2020 Clinical History: Respiratory failure. ET tube placement. An AP erect portable digital radiograph of the chest was obtained. Comparison study is dated 01/27/2020. The NG tube and right subclavian central venous catheter are unchanged in position. The ET tube apparently has been replaced. The tip of this tube extends to overlie the trachea at the level of the clavicles. The cardiac silhouette is mildly enlarged. The thoracic aorta is tortuous. Bilateral perihilar infiltrates are seen which have improved slightly. No pneumothorax is noted. There are probable small bilateral pleural effusions. The osseous structures are unchanged. Impression: 1. Tube and line position as discussed above. 2. Slight improvement in the bilateral perihilar infiltrates. Electronically signed by: Kayden Bates MD (01/28/2020 3:13 PM) [id number]
[2020-01-28] MEDS: cefTRIAXone IV Push 1 GM VIAL. IVP SCH (20:55)
[2020-01-29] VITALS (20 sets, daily range): BP systolic 110–162; BP diastolic 60–84
[2020-01-29] MEDS: MIDAZOLAM 100mg/100ml NS BAG 100 ML IV PRN ×3 (00:45→23:17)
[2020-01-29 06:14] LABS: BASO % 0 % (0-3); EOS # 0.1 x10^3/uL (0.0-0.7); EOS % 1 % (0-3); HEMATOCRIT 32.8 % (36.0-47.0); LYMPH # 0.4 x10^3/uL (1.0-4.8); LYMPH % 4 % (24-48); MEAN CORPUSCULAR HEMOGLOBIN 28 pg (25-35); MEAN CORPUSCULAR HGB CONC 34 g/dL (31-37); MEAN CORPUSCULAR VOLUME 83 fL (79-100); MONO # 0.5 x10^3/uL (0.0-1.1); MONO % 4 % (0-9); NEUT % 91 % (31-73); PLATELET COUNT 405 x10^3/uL (140-400); RED BLOOD COUNT 3.95 x10^6/uL (3.50-5.40); RED CELL DISTRIBUTION WIDTH 15.3 % (11.5-14.5); WHITE BLOOD COUNT 11.1 x10^3/uL (4.0-11.0)
[2020-01-29 06:32] LABS: ALBUMIN/GLOBULIN RATIO 0.5 (1.0-1.7); CALCIUM 8.1 mg/dL (8.5-10.1); CREATININE 0.6 mg/dL (0.6-1.0); GFR 108.6; POTASSIUM 4.4 mmol/L (3.5-5.1); TOTAL BILIRUBIN 0.3 mg/dL (0.2-1.0); TOTAL PROTEIN 5.8 g/dL (6.4-8.2)
--- NOTE | 2020-01-29 08:10 | PDOC ---
Infectious Disease Note Subjective: Subjective Patient intubated/sedated Vital Signs: Vital Signs Vital Signs Date Time Temp Pulse Resp B/P (MAP) Pulse Ox O2 Delivery O2 Flow Rate FiO2 01/29/20 07:00 47 28 132/68 (89) 97 Ventilator 01/29/20 04:53 40.0 01/29/20 04:00 97.8 97.8 Physical Exam: PHYSICAL EXAM GENERAL: Orally intubated sedated on ventilator VITAL SIGNS: Stable HEENT: Both pupils are round and reacting. No conjunctival lesion, no lesion in the mouth. NECK: Supple, no JVP, no lymphadenopathy. LUNGS: Clear. HEART: S1, S2 regular. ABDOMEN: Benign. EXTREMITIES: No edema or cyanosis. SKIN: Unremarkable. NEUROLOGIC: Sedated on a ventilator deficit. Medications: Inpatient Meds: Current Medications Medications (Trade) Dose Ordered Sig/Wei Start Time Stop Time Status Last Admin Dose Admin Acetaminophen (Tylenol) 650 mg PRN Q6HRS PRN 01/21/20 19:45 01/25/20 20:45 650 MG Al Hydroxide/Mg Hydroxide (Mylanta Plus Xs) 30 ml PRN Q3HRS PRN 01/21/20 19:45 Azithromycin 250 ml @ 250 mls/hr 1X ONCE 01/21/20 19:45 01/21/20 20:44 UNV Azithromycin 500 mg/Sodium Chloride 250 ml @ 250 mls/hr Q24H 01/22/20 19:00 01/26/20 09:05 DC 01/25/20 19:00 250 MLS/HR Ceftriaxone Sodium (Rocephin) 1 gm Q24H 01/22/20 20:00 01/28/20 20:55 1 GM Dexamethasone Sodium Phosphate (Decadron) 6 mg DAILY 01/22/20 09:00 01/28/20 09:00 6 MG Enoxaparin Sodium (Lovenox 40mg Syringe) 40 mg BID 01/22/20 11:00 01/28/20 20:56 40 MG Etomidate (Amidate) 20 mg STK-MED ONCE 01/23/20 23:00 01/24/20 08:24 DC Famotidine (Pepcid) 20 mg BID 01/21/20 21:00 01/28/20 20:55 20 MG Fentanyl Citrate 30 ml @ 0 mls/hr CONT PRN 01/23/20 22:45 01/29/20 03:58 3.75 MLS/HR Hydralazine HCl (Apresoline Inj) 10 mg PRN Q4HRS PRN 01/28/20 14:00 Lactobacillus Rhamnosus (Culturelle) 1 cap BID 01/22/20 09:00 01/28/20 20:55 1 CAP Lorazepam (Ativan Inj) 0.05 mg 1X ONCE 01/23/20 21:15 01/23/20 21:31 DC 01/23/20 21:13 0.05 MG Magnesium Hydroxide (Milk Of Magnesia) 2,400 mg PRN Q12HR PRN 01/21/20 19:45 Midazolam HCl 100 ml @ 0 mls/hr CONT PRN 01/23/20 22:45 01/29/20 00:45 8 MLS/HR Non-Formulary Medication 1 ea/ Sodium Chloride 230 ml @ 460 mls/hr DAILY 01/23/20 09:00 01/26/20 09:29 DC 01/26/20 09:58 460 MLS/HR Norepinephrine Bitartrate 8 mg/ Dextrose 258 ml @ 20.666 mls/ hr CONT PRN 01/24/20 02:15 01/24/20 12:28 10.333 MLS/HR Ondansetron HCl (Zofran) 4 mg PRN Q6HRS PRN 01/21/20 19:45 Propofol 100 ml @ 0 mls/hr CONT PRN 01/23/20 22:45 Ringer's Solution 1,000 ml @ 75 mls/hr [id number] 01/24/20 12:30 01/26/20 09:17 DC 01/25/20 16:21 75 MLS/HR Senna/Docusate Sodium (Senna Plus) 1 tab BID 01/21/20 21:00 01/28/20 20:55 1 TAB Sodium Chloride (Normal Saline Flush) 3 ml QSHIFT PRN 01/21/20 19:45 Sterile Water (WATER for RESP) 1,000 ml CONT PRN 01/22/20 04:30 01/23/20 12:46 1,000 ML Succinylcholine Chloride (Anectine) 200 mg STK-MED ONCE 01/23/20 23:00 01/24/20 08:24 DC Vecuronium [place] (Norcuron Bolus) 6 mg PRN Q4HRS PRN 01/24/20 04:30 01/24/20 15:40 6 MG Labs: Lab Laboratory Tests Test 01/28/20 08:35 01/29/20 06:00 O2 Saturation 94 % (92-99) Arterial Blood pH 7.43 (7.35-7.45) Arterial Blood pCO2 at Patient Temp 33 mmHg (35-46) Arterial Blood pO2 at Patient Temp 79 mmHg (75-108) Arterial Blood HCO3 22 mmol/L (21-28) Arterial Blood Base Excess -2 mmol/L (-3-3) FiO2 80% + 12 peep White Blood Count 11.1 x10^3/uL (4.0-11.0) Red Blood Count 3.95 x10^6/uL (3.50-5.40) Hemoglobin 11.0 g/dL (12.0-15.5) Hematocrit 32.8 % (36.0-47.0) Mean Corpuscular Volume 83 fL (79-100) Mean Corpuscular Hemoglobin 28 pg (25-35) Mean Corpuscular Hemoglobin Concent 34 g/dL (31-37) Red Cell Distribution Width 15.3 % (11.5-14.5) Platelet Count 405 x10^3/uL (140-400) Neutrophils (%) (Auto) 91 % (31-73) Lymphocytes (%) (Auto) 4 % (24-48) Monocytes (%) (Auto) 4 % (0-9) Eosinophils (%) (Auto) 1 % (0-3) Basophils (%) (Auto) 0 % (0-3) Neutrophils # (Auto) 10.0 x10^3/uL (1.8-7.7) Lymphocytes # (Auto) 0.4 x10^3/uL (1.0-4.8) Monocytes # (Auto) 0.5 x10^3/uL (0.0-1.1) Eosinophils # (Auto) 0.1 x10^3/uL (0.0-0.7) Basophils # (Auto) 0.0 x10^3/uL (0.0-0.2) Sodium Level 135 mmol/L (136-145) Potassium Level 4.4 mmol/L (3.5-5.1) Chloride Level 100 mmol/L (98-107) Carbon Dioxide Level 28 mmol/L (21-32) Anion Gap 7 (6-14) Blood Urea Nitrogen 19 mg/dL (7-20) Creatinine 0.6 mg/dL (0.6-1.0) Estimated GFR (Cockcroft-Gault) 108.6 BUN/Creatinine Ratio 32 (6-20) Glucose Level 164 mg/dL (70-99) Calcium Level 8.1 mg/dL (8.5-10.1) Total Bilirubin 0.3 mg/dL (0.2-1.0) Aspartate Amino Transf (AST/SGOT) 31 U/L (15-37) Alanine Aminotransferase (ALT/SGPT) 24 U/L (14-59) Alkaline Phosphatase 88 U/L (46-116) Total Protein 5.8 g/dL (6.4-8.2) Albumin 2.0 g/dL (3.4-5.0) Albumin/Globulin Ratio 0.5 (1.0-1.7) Objective: Assessment: COVID 19 infection -Status post plasma and Remdesivir treatment -CRP 163 ( 101) Pneumonia from COVID-19. Acute hypoxic resp failure from above Fever. Improved Obesity. Hypertension. Hypernatremia Plan: Plan of Care Completed Plasma and Remsidivir cont supportive care cont Rocephin completed azithromycin d/w REESE CEBALLOS MD Jan 29, 2020 08:10
--- NOTE | 2020-01-29 08:36 | PDOC ---
PULMONARY PROGRESS NOTES Subjective Intubated 01/24/20 Assist-control ventilation, sedated Vitals Vital Signs Date Time Temp Pulse Resp B/P (MAP) Pulse Ox O2 Delivery O2 Flow Rate FiO2 01/29/20 07:00 47 28 132/68 (89) 97 Ventilator 01/29/20 04:53 40.0 01/29/20 04:00 97.8 97.8 Comments ros unable to obtain sedated on vent Visual exam performed due to COVID-19 pandemic Patient appears to be comfortable in sync with the ventilator, no significant Labs Laboratory Tests Test 01/28/20 05:38 01/28/20 05:40 01/28/20 08:35 01/29/20 06:00 Glucose (Fingerstick) 154 mg/dL (70-99) White Blood Count 10.7 x10^3/uL (4.0-11.0) 11.1 x10^3/uL (4.0-11.0) Red Blood Count 4.00 x10^6/uL (3.50-5.40) 3.95 x10^6/uL (3.50-5.40) Hemoglobin 11.3 g/dL (12.0-15.5) 11.0 g/dL (12.0-15.5) Hematocrit 33.5 % (36.0-47.0) 32.8 % (36.0-47.0) Mean Corpuscular Volume 84 fL (79-100) 83 fL (79-100) Mean Corpuscular Hemoglobin 28 pg (25-35) 28 pg (25-35) Mean Corpuscular Hemoglobin Concent 34 g/dL (31-37) 34 g/dL (31-37) Red Cell Distribution Width 15.3 % (11.5-14.5) 15.3 % (11.5-14.5) Platelet Count 478 x10^3/uL (140-400) 405 x10^3/uL (140-400) Neutrophils (%) (Auto) 91 % (31-73) 91 % (31-73) Lymphocytes (%) (Auto) 4 % (24-48) 4 % (24-48) Monocytes (%) (Auto) 5 % (0-9) 4 % (0-9) Eosinophils (%) (Auto) 0 % (0-3) 1 % (0-3) Basophils (%) (Auto) 0 % (0-3) 0 % (0-3) Neutrophils # (Auto) 9.8 x10^3/uL (1.8-7.7) 10.0 x10^3/uL (1.8-7.7) Lymphocytes # (Auto) 0.4 x10^3/uL (1.0-4.8) 0.4 x10^3/uL (1.0-4.8) Monocytes # (Auto) 0.5 x10^3/uL (0.0-1.1) 0.5 x10^3/uL (0.0-1.1) Eosinophils # (Auto) 0.0 x10^3/uL (0.0-0.7) 0.1 x10^3/uL (0.0-0.7) Basophils # (Auto) 0.0 x10^3/uL (0.0-0.2) 0.0 x10^3/uL (0.0-0.2) Sodium Level 139 mmol/L (136-145) 135 mmol/L (136-145) Potassium Level 4.7 mmol/L (3.5-5.1) 4.4 mmol/L (3.5-5.1) Chloride Level 105 mmol/L (98-107) 100 mmol/L (98-107) Carbon Dioxide Level 27 mmol/L (21-32) 28 mmol/L (21-32) Anion Gap 7 (6-14) 7 (6-14) Blood Urea Nitrogen 24 mg/dL (7-20) 19 mg/dL (7-20) Creatinine 0.7 mg/dL (0.6-1.0) 0.6 mg/dL (0.6-1.0) Estimated GFR (Cockcroft-Gault) 90.9 108.6 BUN/Creatinine Ratio 34 (6-20) 32 (6-20) Glucose Level 154 mg/dL (70-99) 164 mg/dL (70-99) Calcium Level 7.9 mg/dL (8.5-10.1) 8.1 mg/dL (8.5-10.1) Total Bilirubin 0.2 mg/dL (0.2-1.0) 0.3 mg/dL (0.2-1.0) Aspartate Amino Transf (AST/SGOT) 22 U/L (15-37) 31 U/L (15-37) Alanine Aminotransferase (ALT/SGPT) 17 U/L (14-59) 24 U/L (14-59) Alkaline Phosphatase 84 U/L (46-116) 88 U/L (46-116) Total Protein 5.9 g/dL (6.4-8.2) 5.8 g/dL (6.4-8.2) Albumin 1.9 g/dL (3.4-5.0) 2.0 g/dL (3.4-5.0) Albumin/Globulin Ratio 0.5 (1.0-1.7) 0.5 (1.0-1.7) Thyroid Stimulating Hormone (TSH) 0.819 uIU/mL (0.358-3.74) O2 Saturation 94 % (92-99) Arterial Blood pH 7.43 (7.35-7.45) Arterial Blood pCO2 at Patient Temp 33 mmHg (35-46) Arterial Blood pO2 at Patient Temp 79 mmHg (75-108) Arterial Blood HCO3 22 mmol/L (21-28) Arterial Blood Base Excess -2 mmol/L (-3-3) FiO2 80% + 12 peep Laboratory Tests Test 01/29/20 06:00 White Blood Count 11.1 x10^3/uL (4.0-11.0) Red Blood Count 3.95 x10^6/uL (3.50-5.40) Hemoglobin 11.0 g/dL (12.0-15.5) Hematocrit 32.8 % (36.0-47.0) Mean Corpuscular Volume 83 fL (79-100) Mean Corpuscular Hemoglobin 28 pg (25-35) Mean Corpuscular Hemoglobin Concent 34 g/dL (31-37) Red Cell Distribution Width 15.3 % (11.5-14.5) Platelet Count 405 x10^3/uL (140-400) Neutrophils (%) (Auto) 91 % (31-73) Lymphocytes (%) (Auto) 4 % (24-48) Monocytes (%) (Auto) 4 % (0-9) Eosinophils (%) (Auto) 1 % (0-3) Basophils (%) (Auto) 0 % (0-3) Neutrophils # (Auto) 10.0 x10^3/uL (1.8-7.7) Lymphocytes # (Auto) 0.4 x10^3/uL (1.0-4.8) Monocytes # (Auto) 0.5 x10^3/uL (0.0-1.1) Eosinophils # (Auto) 0.1 x10^3/uL (0.0-0.7) Basophils # (Auto) 0.0 x10^3/uL (0.0-0.2) Sodium Level 135 mmol/L (136-145) Potassium Level 4.4 mmol/L (3.5-5.1) Chloride Level 100 mmol/L (98-107) Carbon Dioxide Level 28 mmol/L (21-32) Anion Gap 7 (6-14) Blood Urea Nitrogen 19 mg/dL (7-20) Creatinine 0.6 mg/dL (0.6-1.0) Estimated GFR (Cockcroft-Gault) 108.6 BUN/Creatinine Ratio 32 (6-20) Glucose Level 164 mg/dL (70-99) Calcium Level 8.1 mg/dL (8.5-10.1) Total Bilirubin 0.3 mg/dL (0.2-1.0) Aspartate Amino Transf (AST/SGOT) 31 U/L (15-37) Alanine Aminotransferase (ALT/SGPT) 24 U/L (14-59) Alkaline Phosphatase 88 U/L (46-116) Total Protein 5.8 g/dL (6.4-8.2) Albumin 2.0 g/dL (3.4-5.0) Albumin/Globulin Ratio 0.5 (1.0-1.7) Medications Active Scripts Medications Dose Route/Sig Max Daily Dose Days Date Category Keflex (Cephalexin) 500 Mg Capsule 500 Mg PO QID 10 06/20/18 Rx [place] 5-325 Tablet (Acetaminophen/Hydrocodone Bitart) 1 Each Tablet 1 Tab PO PRN Q6HRS PRN 06/20/18 Rx Comments CXR IMPRESSION: 1. Widespread airspace disease, not significantly changed. 2. Stable position of tubes and lines. Impression . IMPRESSION: 1. Acute hypoxic respiratory failure secondary to COVID-19 pneumonia and sepsis. intubated 01/24/20 2. Abnormal chest x-ray with bilateral patchy infiltrates compatible with COVID-19 pneumonia. COVID-19 + 3. Underlying obesity. 4. Hypertension 5. Hypotension- improved 6, COVID-19 sepsis Plan . Continue current support Case discussed with RT, and RN Antibiotics per ID--rocephin and azithromycin Status post plasma exchange 01/22 Continue steroids Start tube feeding today Total cumulative critical care time of 30 minutes reviewing data, labs, chest x- ray, and formulating a plan CODE: FULL DVT/GI PPX: lovenox/pepciLEIF Manning MD Jan 29, 2020 08:36
[2020-01-29 08:40] LABS: BASE EXCESS ABG 1 mmol/L (-3-3); HCO3 ABG 25 mmol/L (21-28); PCO2 ABG 38 mmHg (35-46); PO2 ABG 69 mmHg (75-108); SAT O2 ABG 92 % (92-99)
[2020-01-29 08:43] LABS: FIO2 ABG 80% + 12 PEEP
[2020-01-29] MEDS: LACTOBACILLUS RHAMNOSUS GG 1 CAPSULE. PO SCH ×2 (11:14→20:32)
[2020-01-29] MEDS: SENNOSIDES/DOCUSATE 8.6/50MG TABLET. PO SCH ×2 (11:14→20:14)
[2020-01-29] MEDS: FAMOTIDINE 20 MG TABLET. PO SCH ×2 (11:14→20:14)
[2020-01-29] MEDS: DEXAMETHASONE SOD PHOS 4 MG/ML VIAL IVP SCH (11:22)
[2020-01-29] MEDS: ENOXAPARIN 40 MG/0.4 ML SYRINGE. SQ SCH ×2 (11:24→20:14)
--- NOTE | 2020-01-29 14:23 | PDOC ---
CARDIO Progress Notes Date and Time Date of Service 01/29/2020 Time of Evaluation 1200 Subjective Subjective: Other (intubated) Vitals Vitals Vital Signs Date Time Temp Pulse Resp B/P (MAP) Pulse Ox O2 Delivery O2 Flow Rate FiO2 01/29/20 12:37 96 40.0 01/29/20 12:19 Ventilator 01/29/20 09:00 27 135/67 (89) 01/29/20 08:00 97.9 97.9 01/29/20 07:00 47 Weight Weight [ ] Input and Output Intake and Output Intake and Output 01/29/20 07:00 Intake Total 2276.0 ml Output Total 2660 ml Balance -384.0 ml IV Total 286.0 ml Tube Feeding 1690 ml Other 300 ml Output Urine Total 2660 ml Gastric Drainage Total 0 ml Laboratory Labs Laboratory Tests Test 01/29/20 06:00 01/29/20 08:35 White Blood Count 11.1 x10^3/uL (4.0-11.0) Red Blood Count 3.95 x10^6/uL (3.50-5.40) Hemoglobin 11.0 g/dL (12.0-15.5) Hematocrit 32.8 % (36.0-47.0) Mean Corpuscular Volume 83 fL (79-100) Mean Corpuscular Hemoglobin 28 pg (25-35) Mean Corpuscular Hemoglobin Concent 34 g/dL (31-37) Red Cell Distribution Width 15.3 % (11.5-14.5) Platelet Count 405 x10^3/uL (140-400) Neutrophils (%) (Auto) 91 % (31-73) Lymphocytes (%) (Auto) 4 % (24-48) Monocytes (%) (Auto) 4 % (0-9) Eosinophils (%) (Auto) 1 % (0-3) Basophils (%) (Auto) 0 % (0-3) Neutrophils # (Auto) 10.0 x10^3/uL (1.8-7.7) Lymphocytes # (Auto) 0.4 x10^3/uL (1.0-4.8) Monocytes # (Auto) 0.5 x10^3/uL (0.0-1.1) Eosinophils # (Auto) 0.1 x10^3/uL (0.0-0.7) Basophils # (Auto) 0.0 x10^3/uL (0.0-0.2) Sodium Level 135 mmol/L (136-145) Potassium Level 4.4 mmol/L (3.5-5.1) Chloride Level 100 mmol/L (98-107) Carbon Dioxide Level 28 mmol/L (21-32) Anion Gap 7 (6-14) Blood Urea Nitrogen 19 mg/dL (7-20) Creatinine 0.6 mg/dL (0.6-1.0) Estimated GFR (Cockcroft-Gault) 108.6 BUN/Creatinine Ratio 32 (6-20) Glucose Level 164 mg/dL (70-99) Calcium Level 8.1 mg/dL (8.5-10.1) Total Bilirubin 0.3 mg/dL (0.2-1.0) Aspartate Amino Transf (AST/SGOT) 31 U/L (15-37) Alanine Aminotransferase (ALT/SGPT) 24 U/L (14-59) Alkaline Phosphatase 88 U/L (46-116) Total Protein 5.8 g/dL (6.4-8.2) Albumin 2.0 g/dL (3.4-5.0) Albumin/Globulin Ratio 0.5 (1.0-1.7) O2 Saturation 92 % (92-99) Arterial Blood pH 7.44 (7.35-7.45) Arterial Blood pCO2 at Patient Temp 38 mmHg (35-46) Arterial Blood pO2 at Patient Temp 69 mmHg (75-108) Arterial Blood HCO3 25 mmol/L (21-28) Arterial Blood Base Excess 1 mmol/L (-3-3) FiO2 80% + 12 peep Physical Exam Chest: Symmetric LUNGS: Other (intubated with vent) Heart: RRR (SB lowest mid 30s no pauses) Abdomen: Other (obese) Neurology: other (sedated) Other Exams visual exam, discussed with steel erecting pusher Assessment 1. Acute hypoxic respiratory failure with COVID-19 pneumonia and sepsis. intubated 01/24/20 2. Sinus bradycardia: QTc 444, lowest mid 30s, no pauses, hemodynamically stable otherwsie mean rate in the 50s 3. HTN: controlled 4. Morbid obesity Recommendations 1. Avoid AV cara blocking agents. Monitor rhythm 2. Hydralazine IV PRN. Supportive care. Justicifation of Admission Dx: Justifications for Admission: Justification of Admission Dx: Yes Respiratory Failure: Severe Resp Distress RYAN SAVAGE SIGNAL INTELLIGENCE ANALYST Jan 29, 2020 14:23
--- NOTE | 2020-01-29 14:34 | NUR ---
SS following up with discharge planning. SS reviewed pt chart and discussed with RN. No new changes today. Pt COVID19 positive and remains on the vent at this time. Pt on IV Rocephin. SS will continue to follow for discharge planning.
--- NOTE | 2020-01-29 15:09 | PDOC ---
PROGRESS NOTES Chief Complaint Chief Complaint Assessment/Plan ASSESSMENT Acute Hypoxic Respiratory Failure Secondary to COVID-PNA multifocal pulmonary infiltrates.// follow-up to resolution. super Morbid Obesity HTN NORMOCYTIC ANEMIA severe protein-caloric malnutrition PLAN - CONT ICU given hypoxic resp failure - dexamethasone 6 mg IV daily - finished zithromax , continue Rocephin - ID consult for plasma and remdesevir // completed - pulm consult given hypoxia - dvt ppx: lovenox 40 MG BID - GI ppx: pepcid FULL CODE VENT ICU -Status post plasma and Remdesivir treatment -CRP 163 LOS greater than 2 midnights given resp failure, COVID PNA 35 MIN CC TIME The patient was evaluated during the global COVID-19 pandemic, and that diagnosis was suspected/considered upon their initial presentation. Their evaluation, treatment and testing was consistent with current guidelines for patients who present with complaints or symptoms that may be related to COVID- 19. VTE Prophylaxis Ordered VTE Prophylaxis Devices: Yes VTE Pharmacological Prophylaxi: Yes History of Present Illness History of Present Illness 01/28 No acute events reported overnight, case discussed with nursing staff patient in no acute distress cxr with diffuse infiltrates 34 min cc time COVID-19 CRITERIA: The patient was evaluated during the global COVID-19 pandemic, and that diagnosis was suspected/considered upon their initial presentation. Their evaluation, treatment and testing was consistent with current guidelines for patients who present with complaints or symptoms that may be related to COVID-19. Justicifation of Admission Dx: Justicifation of Admission Dx: Justifications for Admission: Justification of Admission Dx: Yes Respiratory Failure: Severe Resp Distress Vitals Vitals Vital Signs Date Time Temp Pulse Resp B/P (MAP) Pulse Ox O2 Delivery O2 Flow Rate FiO2 01/29/20 12:37 96 40.0 01/29/20 12:19 Ventilator 01/29/20 09:00 27 135/67 (89) 01/29/20 08:00 97.9 97.9 01/29/20 07:00 47 Physical Exam Physical Exam GENERAL: Orally intubated sedated on ventilator VITAL SIGNS: Stable HEENT: Both pupils are round and reacting. No conjunctival lesion, no lesion in the mouth. NECK: Supple, no JVP, no lymphadenopathy. LUNGS: Clear. HEART: S1, S2 regular. ABDOMEN: Benign. EXTREMITIES: No edema or cyanosis. SKIN: Unremarkable. NEUROLOGIC: Sedated on a ventilator deficit. General: Other Heart: Regular rate Abdomen: Other Extremities: No cyanosis Skin: No breakdown Labs LABS Laboratory Tests Test 01/29/20 06:00 01/29/20 08:35 White Blood Count 11.1 x10^3/uL (4.0-11.0) Red Blood Count 3.95 x10^6/uL (3.50-5.40) Hemoglobin 11.0 g/dL (12.0-15.5) Hematocrit 32.8 % (36.0-47.0) Mean Corpuscular Volume 83 fL (79-100) Mean Corpuscular Hemoglobin 28 pg (25-35) Mean Corpuscular Hemoglobin Concent 34 g/dL (31-37) Red Cell Distribution Width 15.3 % (11.5-14.5) Platelet Count 405 x10^3/uL (140-400) Neutrophils (%) (Auto) 91 % (31-73) Lymphocytes (%) (Auto) 4 % (24-48) Monocytes (%) (Auto) 4 % (0-9) Eosinophils (%) (Auto) 1 % (0-3) Basophils (%) (Auto) 0 % (0-3) Neutrophils # (Auto) 10.0 x10^3/uL (1.8-7.7) Lymphocytes # (Auto) 0.4 x10^3/uL (1.0-4.8) Monocytes # (Auto) 0.5 x10^3/uL (0.0-1.1) Eosinophils # (Auto) 0.1 x10^3/uL (0.0-0.7) Basophils # (Auto) 0.0 x10^3/uL (0.0-0.2) Sodium Level 135 mmol/L (136-145) Potassium Level 4.4 mmol/L (3.5-5.1) Chloride Level 100 mmol/L (98-107) Carbon Dioxide Level 28 mmol/L (21-32) Anion Gap 7 (6-14) Blood Urea Nitrogen 19 mg/dL (7-20) Creatinine 0.6 mg/dL (0.6-1.0) Estimated GFR (Cockcroft-Gault) 108.6 BUN/Creatinine Ratio 32 (6-20) Glucose Level 164 mg/dL (70-99) Calcium Level 8.1 mg/dL (8.5-10.1) Total Bilirubin 0.3 mg/dL (0.2-1.0) Aspartate Amino Transf (AST/SGOT) 31 U/L (15-37) Alanine Aminotransferase (ALT/SGPT) 24 U/L (14-59) Alkaline Phosphatase 88 U/L (46-116) Total Protein 5.8 g/dL (6.4-8.2) Albumin 2.0 g/dL (3.4-5.0) Albumin/Globulin Ratio 0.5 (1.0-1.7) O2 Saturation 92 % (92-99) Arterial Blood pH 7.44 (7.35-7.45) Arterial Blood pCO2 at Patient Temp 38 mmHg (35-46) Arterial Blood pO2 at Patient Temp 69 mmHg (75-108) Arterial Blood HCO3 25 mmol/L (21-28) Arterial Blood Base Excess 1 mmol/L (-3-3) FiO2 80% + 12 peep Assessment and Plan Assessmemt and Plan Problems Medical Problems: (1) Pneumonia due to COVID-19 virus Status: Acute Comment Review of Relevant I have reviewed the following items stephon (where applicable) has been applied. Labs Laboratory Tests Test 01/28/20 05:38 01/28/20 05:40 01/28/20 08:35 01/29/20 06:00 Glucose (Fingerstick) 154 mg/dL (70-99) White Blood Count 10.7 x10^3/uL (4.0-11.0) 11.1 x10^3/uL (4.0-11.0) Red Blood Count 4.00 x10^6/uL (3.50-5.40) 3.95 x10^6/uL (3.50-5.40) Hemoglobin 11.3 g/dL (12.0-15.5) 11.0 g/dL (12.0-15.5) Hematocrit 33.5 % (36.0-47.0) 32.8 % (36.0-47.0) Mean Corpuscular Volume 84 fL (79-100) 83 fL (79-100) Mean Corpuscular Hemoglobin 28 pg (25-35) 28 pg (25-35) Mean Corpuscular Hemoglobin Concent 34 g/dL (31-37) 34 g/dL (31-37) Red Cell Distribution Width 15.3 % (11.5-14.5) 15.3 % (11.5-14.5) Platelet Count 478 x10^3/uL (140-400) 405 x10^3/uL (140-400) Neutrophils (%) (Auto) 91 % (31-73) 91 % (31-73) Lymphocytes (%) (Auto) 4 % (24-48) 4 % (24-48) Monocytes (%) (Auto) 5 % (0-9) 4 % (0-9) Eosinophils (%) (Auto) 0 % (0-3) 1 % (0-3) Basophils (%) (Auto) 0 % (0-3) 0 % (0-3) Neutrophils # (Auto) 9.8 x10^3/uL (1.8-7.7) 10.0 x10^3/uL (1.8-7.7) Lymphocytes # (Auto) 0.4 x10^3/uL (1.0-4.8) 0.4 x10^3/uL (1.0-4.8) Monocytes # (Auto) 0.5 x10^3/uL (0.0-1.1) 0.5 x10^3/uL (0.0-1.1) Eosinophils # (Auto) 0.0 x10^3/uL (0.0-0.7) 0.1 x10^3/uL (0.0-0.7) Basophils # (Auto) 0.0 x10^3/uL (0.0-0.2) 0.0 x10^3/uL (0.0-0.2) Sodium Level 139 mmol/L (136-145) 135 mmol/L (136-145) Potassium Level 4.7 mmol/L (3.5-5.1) 4.4 mmol/L (3.5-5.1) Chloride Level 105 mmol/L (98-107) 100 mmol/L (98-107) Carbon Dioxide Level 27 mmol/L (21-32) 28 mmol/L (21-32) Anion Gap 7 (6-14) 7 (6-14) Blood Urea Nitrogen 24 mg/dL (7-20) 19 mg/dL (7-20) Creatinine 0.7 mg/dL (0.6-1.0) 0.6 mg/dL (0.6-1.0) Estimated GFR (Cockcroft-Gault) 90.9 108.6 BUN/Creatinine Ratio 34 (6-20) 32 (6-20) Glucose Level 154 mg/dL (70-99) 164 mg/dL (70-99) Calcium Level 7.9 mg/dL (8.5-10.1) 8.1 mg/dL (8.5-10.1) Total Bilirubin 0.2 mg/dL (0.2-1.0) 0.3 mg/dL (0.2-1.0) Aspartate Amino Transf (AST/SGOT) 22 U/L (15-37) 31 U/L (15-37) Alanine Aminotransferase (ALT/SGPT) 17 U/L (14-59) 24 U/L (14-59) Alkaline Phosphatase 84 U/L (46-116) 88 U/L (46-116) Total Protein 5.9 g/dL (6.4-8.2) 5.8 g/dL (6.4-8.2) Albumin 1.9 g/dL (3.4-5.0) 2.0 g/dL (3.4-5.0) Albumin/Globulin Ratio 0.5 (1.0-1.7) 0.5 (1.0-1.7) Thyroid Stimulating Hormone (TSH) 0.819 uIU/mL (0.358-3.74) O2 Saturation 94 % (92-99) Arterial Blood pH 7.43 (7.35-7.45) Arterial Blood pCO2 at Patient Temp 33 mmHg (35-46) Arterial Blood pO2 at Patient Temp 79 mmHg (75-108) Arterial Blood HCO3 22 mmol/L (21-28) Arterial Blood Base Excess -2 mmol/L (-3-3) FiO2 80% + 12 peep Test 01/29/20 08:35 O2 Saturation 92 % (92-99) Arterial Blood pH 7.44 (7.35-7.45) Arterial Blood pCO2 at Patient Temp 38 mmHg (35-46) Arterial Blood pO2 at Patient Temp 69 mmHg (75-108) Arterial Blood HCO3 25 mmol/L (21-28) Arterial Blood Base Excess 1 mmol/L (-3-3) FiO2 80% + 12 peep Laboratory Tests Test 01/29/20 06:00 01/29/20 08:35 White Blood Count 11.1 x10^3/uL (4.0-11.0) Red Blood Count 3.95 x10^6/uL (3.50-5.40) Hemoglobin 11.0 g/dL (12.0-15.5) Hematocrit 32.8 % (36.0-47.0) Mean Corpuscular Volume 83 fL (79-100) Mean Corpuscular Hemoglobin 28 pg (25-35) Mean Corpuscular Hemoglobin Concent 34 g/dL (31-37) Red Cell Distribution Width 15.3 % (11.5-14.5) Platelet Count 405 x10^3/uL (140-400) Neutrophils (%) (Auto) 91 % (31-73) Lymphocytes (%) (Auto) 4 % (24-48) Monocytes (%) (Auto) 4 % (0-9) Eosinophils (%) (Auto) 1 % (0-3) Basophils (%) (Auto) 0 % (0-3) Neutrophils # (Auto) 10.0 x10^3/uL (1.8-7.7) Lymphocytes # (Auto) 0.4 x10^3/uL (1.0-4.8) Monocytes # (Auto) 0.5 x10^3/uL (0.0-1.1) Eosinophils # (Auto) 0.1 x10^3/uL (0.0-0.7) Basophils # (Auto) 0.0 x10^3/uL (0.0-0.2) Sodium Level 135 mmol/L (136-145) Potassium Level 4.4 mmol/L (3.5-5.1) Chloride Level 100 mmol/L (98-107) Carbon Dioxide Level 28 mmol/L (21-32) Anion Gap 7 (6-14) Blood Urea Nitrogen 19 mg/dL (7-20) Creatinine 0.6 mg/dL (0.6-1.0) Estimated GFR (Cockcroft-Gault) 108.6 BUN/Creatinine Ratio 32 (6-20) Glucose Level 164 mg/dL (70-99) Calcium Level 8.1 mg/dL (8.5-10.1) Total Bilirubin 0.3 mg/dL (0.2-1.0) Aspartate Amino Transf (AST/SGOT) 31 U/L (15-37) Alanine Aminotransferase (ALT/SGPT) 24 U/L (14-59) Alkaline Phosphatase 88 U/L (46-116) Total Protein 5.8 g/dL (6.4-8.2) Albumin 2.0 g/dL (3.4-5.0) Albumin/Globulin Ratio 0.5 (1.0-1.7) O2 Saturation 92 % (92-99) Arterial Blood pH 7.44 (7.35-7.45) Arterial Blood pCO2 at Patient Temp 38 mmHg (35-46) Arterial Blood pO2 at Patient Temp 69 mmHg (75-108) Arterial Blood HCO3 25 mmol/L (21-28) Arterial Blood Base Excess 1 mmol/L (-3-3) FiO2 80% + 12 peep Medications Current Medications Acetaminophen (Tylenol) 1,000 mg 1X ONCE PO Last administered on 01/21/20at 17:00; Start 01/21/20 at 17:00; Stop 01/21/20 at 17:01; Status DC Ondansetron HCl (Zofran) 4 mg PRN Q8HRS PRN IV NAUSEA/VOMITING; Start 01/21/20 at 18:00; Stop 01/22/20 at 07:55; Status DC Dexamethasone Sodium Phosphate (Decadron) 6 mg 1X ONCE IVP Last administered on 01/21/20at 18:14; Start 01/21/20 at 18:00; Stop 01/21/20 at 18:01; Status DC Ceftriaxone Sodium (Rocephin) 1 gm 1X ONCE IVP Last administered on 01/21/20at 18:14; Start 01/21/20 at 18:00; Stop 01/21/20 at 18:01; Status DC Azithromycin 500 mg/Sodium Chloride 250 ml @ 250 mls/hr Q24H IV Last administered on 01/25/20at 19:00; Start 01/22/20 at 19:00; Stop 01/26/20 at 09:05; Status DC Azithromycin 250 ml @ 250 mls/hr 1X ONCE IV Last administered on 01/21/20at 18:25; Start 01/21/20 at 18:15; Stop 01/21/20 at 19:14; Status DC Dexamethasone Sodium Phosphate (Decadron) 6 mg DAILY IVP Last administered on 01/29/20 11:22; Start 01/22/20 at 09:00 Ceftriaxone Sodium (Rocephin) 1 gm Q24H IVP Last administered on 01/28/20at 20:55; Start 01/22/20 at 20:00 Azithromycin 250 ml @ 250 mls/hr 1X ONCE IV ; Start 01/21/20 at 19:45; Stop 01/21/20 at 20:44; Status UNV Acetaminophen (Tylenol) 650 mg PRN Q6HRS PRN PO Headaches, Temp > 101.5' Last administered on 01/25/20at 20:45; Start 01/21/20 at 19:45 Ondansetron HCl (Zofran) 4 mg PRN Q6HRS PRN IVP NAUSEA/VOMITING; Start 01/21/20 at 19:45 Al Hydroxide/Mg Hydroxide (Mylanta Plus Xs) 30 ml PRN Q3HRS PRN PO HEARTBURN / GAS; Start 01/21/20 at 19:45 Famotidine (Pepcid) 20 mg BID PO Last administered on 01/29/20at 11:14; Start at 21:00 Enoxaparin Sodium (Lovenox 40mg Syringe) 40 mg Q24H SQ Last administered on 01/21/20at 21:07; Start 01/21/20 at 20:00; Stop 01/22/20 at 10:45; Status DC Sodium Chloride (Normal Saline Flush) 3 ml QSHIFT PRN IV AFTER MEDS AND BLOOD DRAWS; Start 01/21/20 at 19:45 Senna/Docusate Sodium (Senna Plus) 1 tab BID PO Last administered on 01/29/20at 11:14; Start 01/21/20 at 21:00 Magnesium Hydroxide (Milk Of Magnesia) 2,400 mg PRN Q12HR PRN PO CONSTIPATION; Start 01/21/20 at 19:45 Sterile Water (WATER for RESP) 1,000 ml CONT PRN INH VIA VAPOTHERM DEVICE Last administered on 01/23/20at 12:46; Start 01/22/20 at 04:30 Lactobacillus Rhamnosus (Culturelle) 1 cap BID PO Last administered on 01/29/20at 11:14; Start 01/22/20 at 09:00 Non-Formulary Medication 1 ea/ Sodium Chloride 210 ml @ 420 mls/hr ONCE ONCE IV Last administered on 01/22/20at 10:44; Start 01/22/20 at 11:00; Stop 01/22/20 at 11:29; Status DC Non-Formulary Medication 1 ea/ Sodium Chloride 230 ml @ 460 mls/hr DAILY IV Last administered on 01/26/20at 09:58; Start 01/23/20 at 09:00; Stop 01/26/20 at 09:29; Status DC Enoxaparin Sodium (Lovenox 40mg Syringe) 40 mg BID SQ Last administered on 01/29/20at 11:24; Start 01/22/20 at 11:00 Lorazepam (Ativan Inj) 0.5 mg PRN Q4HRS PRN IVP ANXIETY / AGITATION; Start 01/23/20 at 21:00 Lorazepam (Ativan Inj) 0.05 mg 1X ONCE IVP Last administered on 01/23/20at 21:13; Start 01/23/20 at 21:15; Stop 01/23/20 at 21:31; Status DC Fentanyl Citrate 30 ml @ 0 mls/hr CONT PRN IV SEE PROTOCOL Last administered on 01/29/20at 12:07; Start 01/23/20 at 22:45 Propofol 100 ml @ 0 mls/hr CONT PRN IV SEE PROTOCOL; Start 01/23/20 at 22:45 Midazolam HCl 100 ml @ 0 mls/hr CONT PRN IV SEE PROTOCOL Last administered on 01/29/20at 14:12; Start 01/23/20 at 22:45 Vecuronium [place] (Norcuron Bolus) 10 mg STK-MED ONCE IV ; Start 01/23/20 at 23:24; Stop 01/23/20 at 23:25; Status DC Vecuronium [place] (Norcuron Bolus) 60 mg 1X ONCE IV Last administered on 01/23/20at 23:30; Start 01/23/20 at 23:30; Stop 01/23/20 at 23:35; Status DC Norepinephrine Bitartrate 8 mg/ Dextrose 258 ml @ 20.666 mls/ hr CONT PRN IV PER PROTOCOL Last administered on 01/24/20at 12:28; Start 01/24/20 at 02:15 Vecuronium [place] (Norcuron Bolus) 6 mg PRN Q4HRS PRN IV SEDATION Last administered on 01/24/20at 15:40; Start 01/24/20 at 04:30 Succinylcholine Chloride (Anectine) 200 mg STK-MED ONCE .ROUTE ; Start 01/23/20 at 23:00; Stop 01/24/20 at 08:24; Status DC Etomidate (Amidate) 20 mg STK-MED ONCE IV ; Start 01/23/20 at 23:00; Stop 01/24/20 at 08:24; Status DC Ringer's Solution 1,000 ml @ 75 mls/hr [id number] IV Last administered on 01/25/20at 16:21; Start 01/24/20 at 12:30; Stop 01/26/20 at 09:17; Status DC Hydralazine HCl (Apresoline Inj) 10 mg PRN Q4HRS PRN IVP ELEVATED BP, SEE COMMENTS; Start 01/28/20 at 14:00 Active Scripts Active Keflex (Cephalexin) 500 Mg Capsule 500 Mg PO QID 10 Days [place] 5-325 Tablet (Acetaminophen/Hydrocodone Bitart) 1 Each Tablet 1 Tab PO PRN Q6HRS PRN Vitals/I & O Vital Sign - Last 24 Hours 01/28/20 01/28/20 01/28/20 01/28/20 15:35 16:00 16:00 17:00 Temp 96.9 96.9 Pulse 49 45 Resp 27 B/P (MAP) 143/76 (98) 140/75 (96) Pulse Ox 95 95 95 O2 Delivery Ventilator Ventilator Mechanical Ventilator Ventilator 01/28/20 01/28/20 01/28/20 01/28/20 18:00 19:00 20:00 20:00 Temp 98.9 98.9 Pulse 44 45 46 Resp 28 B/P (MAP) 122/64 (83) 167/83 (111) 170/80 (110) Pulse Ox 95 95 97 O2 Delivery Ventilator Ventilator Ventilator Mechanical Ventilator 01/28/20 01/28/20 01/28/20 01/28/20 20:08 21:00 22:00 22:13 Pulse 47 50 Resp 28 B/P (MAP) 167/85 (112) 150/71 (97) Pulse Ox 94 96 98 95 O2 Delivery Ventilator Ventilator Ventilator Ventilator 01/28/20 01/28/20 01/28/20 01/29/20 23:00 23:59 23:59 00:59 Temp 97.5 97.5 Pulse 44 44 Resp 19 27 B/P (MAP) 163/83 (109) 150/71 (97) Pulse Ox 95 97 97 O2 Delivery Ventilator Mechanical Ventilator Ventilator Ventilator 01/29/20 01/29/20 01/29/20 01/29/20 01:00 02:05 02:55 03:00 Pulse 45 43 41 Resp 28 28 B/P (MAP) 152/77 (102) 141/71 (94) 136/69 (91) Pulse Ox 97 97 95 97 O2 Delivery Ventilator Ventilator Ventilator Ventilator 01/29/20 01/29/20 01/29/20 01/29/20 03:58 04:00 04:00 04:53 Temp 97.8 97.8 Pulse 43 Resp 28 B/P (MAP) 118/61 (80) Pulse Ox 97 96 96 O2 Delivery Mechanical Ventilator Ventilator O2 Flow Rate 40.0 40.0 01/29/20 01/29/20 01/29/20 01/29/20 05:00 06:01 07:00 08:00 Temp 97.9 97.9 Pulse 42 42 47 Resp 27 27 28 30 B/P (MAP) 148/74 (98) 133/68 (89) 132/68 (89) 160/84 (109) Pulse Ox 97 98 97 90 O2 Delivery Ventilator Ventilator Ventilator Ventilator 01/29/20 01/29/20 01/29/20 01/29/20 08:00 08:29 09:00 09:04 Resp 27 B/P (MAP) 135/67 (89) Pulse Ox 95 96 O2 Delivery Mechanical Ventilator Ventilator Ventilator Mechanical Ventilator 01/29/20 01/29/20 01/29/20 01/29/20 12:00 12:07 12:19 12:37 Pulse Ox 96 96 96 O2 Delivery Mechanical Ventilator Ventilator O2 Flow Rate 40.0 40.0 Intake and Output 01/28/20 01/28/20 01/29/20 15:00 23:00 07:00 Intake Total 300 ml 1080.0 ml 896 ml Output Total 1010 ml 825 ml 825 ml Balance -710 ml 255.0 ml 71 ml ILIA GALVAN MD Jan 29, 2020 15:09
[2020-01-29] MEDS: cefTRIAXone IV Push 1 GM VIAL. IVP SCH (20:14)
[2020-01-30] VITALS (24 sets, daily range): BP systolic 87–151; BP diastolic 41–80
[2020-01-30 06:25] LABS: BASO % 0 % (0-3); EOS # 0.2 x10^3/uL (0.0-0.7); EOS % 1 % (0-3); HEMATOCRIT 33.3 % (36.0-47.0); HEMOGLOBIN 11.2 g/dL (12.0-15.5); LYMPH # 0.6 x10^3/uL (1.0-4.8); LYMPH % 5 % (24-48); MEAN CORPUSCULAR HEMOGLOBIN 28 pg (25-35); MEAN CORPUSCULAR HGB CONC 34 g/dL (31-37); MEAN CORPUSCULAR VOLUME 83 fL (79-100); MONO # 0.5 x10^3/uL (0.0-1.1); MONO % 4 % (0-9); NEUT # 12.4 x10^3/uL (1.8-7.7); NEUT % 90 % (31-73); PLATELET COUNT 355 x10^3/uL (140-400); RED BLOOD COUNT 3.99 x10^6/uL (3.50-5.40); RED CELL DISTRIBUTION WIDTH 15.8 % (11.5-14.5); WHITE BLOOD COUNT 13.7 x10^3/uL (4.0-11.0)
[2020-01-30 06:36] LABS: ALBUMIN 1.9 g/dL (3.4-5.0); ALBUMIN/GLOBULIN RATIO 0.5 (1.0-1.7); CALCIUM 7.8 mg/dL (8.5-10.1); CREATININE 0.7 mg/dL (0.6-1.0); GFR 90.9; POTASSIUM 3.9 mmol/L (3.5-5.1); TOTAL BILIRUBIN 0.6 mg/dL (0.2-1.0); TOTAL PROTEIN 5.6 g/dL (6.4-8.2)
[2020-01-30] MEDS: SENNOSIDES/DOCUSATE 8.6/50MG TABLET. PO SCH ×2 (08:09→20:38)
[2020-01-30] MEDS: ENOXAPARIN 40 MG/0.4 ML SYRINGE. SQ SCH ×2 (08:09→20:39)
[2020-01-30] MEDS: DEXAMETHASONE SOD PHOS 4 MG/ML VIAL IVP SCH (08:10)
[2020-01-30] MEDS: FAMOTIDINE 20 MG TABLET. PO SCH ×2 (08:10→20:38)
[2020-01-30] MEDS: LACTOBACILLUS RHAMNOSUS GG 1 CAPSULE. PO SCH ×2 (08:10→20:38)
[2020-01-30 08:30] LABS: BASE EXCESS ABG 2 mmol/L (-3-3); HCO3 ABG 26 mmol/L (21-28); PCO2 ABG 36 mmHg (35-46); PO2 ABG 70 mmHg (75-108); SAT O2 ABG 93 % (92-99)
[2020-01-30 08:36] LABS: FIO2 ABG 80
--- NOTE | 2020-01-30 09:32 | PDOC ---
PULMONARY PROGRESS NOTES Subjective Intubated 01/24/20 Assist-control ventilation, sedated Vitals Vital Signs Date Time Temp Pulse Resp B/P (MAP) Pulse Ox O2 Delivery O2 Flow Rate FiO2 01/30/20 08:15 Mechanical Ventilator 01/30/20 08:11 96 01/30/20 08:00 93.3 66 28 87/41 (56) 93.3 01/30/20 03:30 40.0 Comments ros unable to obtain sedated on vent Visual exam performed due to COVID-19 pandemic Patient appears to be comfortable in sync with the ventilator, no significant Labs Laboratory Tests Test 01/29/20 06:00 01/29/20 08:35 01/30/20 00:27 01/30/20 06:00 White Blood Count 11.1 x10^3/uL (4.0-11.0) 13.7 x10^3/uL (4.0-11.0) Red Blood Count 3.95 x10^6/uL (3.50-5.40) 3.99 x10^6/uL (3.50-5.40) Hemoglobin 11.0 g/dL (12.0-15.5) 11.2 g/dL (12.0-15.5) Hematocrit 32.8 % (36.0-47.0) 33.3 % (36.0-47.0) Mean Corpuscular Volume 83 fL (79-100) 83 fL (79-100) Mean Corpuscular Hemoglobin 28 pg (25-35) 28 pg (25-35) Mean Corpuscular Hemoglobin Concent 34 g/dL (31-37) 34 g/dL (31-37) Red Cell Distribution Width 15.3 % (11.5-14.5) 15.8 % (11.5-14.5) Platelet Count 405 x10^3/uL (140-400) 355 x10^3/uL (140-400) Neutrophils (%) (Auto) 91 % (31-73) 90 % (31-73) Lymphocytes (%) (Auto) 4 % (24-48) 5 % (24-48) Monocytes (%) (Auto) 4 % (0-9) 4 % (0-9) Eosinophils (%) (Auto) 1 % (0-3) 1 % (0-3) Basophils (%) (Auto) 0 % (0-3) 0 % (0-3) Neutrophils # (Auto) 10.0 x10^3/uL (1.8-7.7) 12.4 x10^3/uL (1.8-7.7) Lymphocytes # (Auto) 0.4 x10^3/uL (1.0-4.8) 0.6 x10^3/uL (1.0-4.8) Monocytes # (Auto) 0.5 x10^3/uL (0.0-1.1) 0.5 x10^3/uL (0.0-1.1) Eosinophils # (Auto) 0.1 x10^3/uL (0.0-0.7) 0.2 x10^3/uL (0.0-0.7) Basophils # (Auto) 0.0 x10^3/uL (0.0-0.2) 0.0 x10^3/uL (0.0-0.2) Sodium Level 135 mmol/L (136-145) 133 mmol/L (136-145) Potassium Level 4.4 mmol/L (3.5-5.1) 3.9 mmol/L (3.5-5.1) Chloride Level 100 mmol/L (98-107) 97 mmol/L (98-107) Carbon Dioxide Level 28 mmol/L (21-32) 30 mmol/L (21-32) Anion Gap 7 (6-14) 6 (6-14) Blood Urea Nitrogen 19 mg/dL (7-20) 18 mg/dL (7-20) Creatinine 0.6 mg/dL (0.6-1.0) 0.7 mg/dL (0.6-1.0) Estimated GFR (Cockcroft-Gault) 108.6 90.9 BUN/Creatinine Ratio 32 (6-20) 26 (6-20) Glucose Level 164 mg/dL (70-99) 114 mg/dL (70-99) Calcium Level 8.1 mg/dL (8.5-10.1) 7.8 mg/dL (8.5-10.1) Total Bilirubin 0.3 mg/dL (0.2-1.0) 0.6 mg/dL (0.2-1.0) Aspartate Amino Transf (AST/SGOT) 31 U/L (15-37) 56 U/L (15-37) Alanine Aminotransferase (ALT/SGPT) 24 U/L (14-59) 44 U/L (14-59) Alkaline Phosphatase 88 U/L (46-116) 88 U/L (46-116) Total Protein 5.8 g/dL (6.4-8.2) 5.6 g/dL (6.4-8.2) Albumin 2.0 g/dL (3.4-5.0) 1.9 g/dL (3.4-5.0) Albumin/Globulin Ratio 0.5 (1.0-1.7) 0.5 (1.0-1.7) O2 Saturation 92 % (92-99) Arterial Blood pH 7.44 (7.35-7.45) Arterial Blood pCO2 at Patient Temp 38 mmHg (35-46) Arterial Blood pO2 at Patient Temp 69 mmHg (75-108) Arterial Blood HCO3 25 mmol/L (21-28) Arterial Blood Base Excess 1 mmol/L (-3-3) FiO2 80% + 12 peep Glucose (Fingerstick) 86 mg/dL (70-99) Test 01/30/20 08:00 O2 Saturation 93 % (92-99) Arterial Blood pH 7.48 (7.35-7.45) Arterial Blood pCO2 at Patient Temp 36 mmHg (35-46) Arterial Blood pO2 at Patient Temp 70 mmHg (75-108) Arterial Blood HCO3 26 mmol/L (21-28) Arterial Blood Base Excess 2 mmol/L (-3-3) FiO2 80 Laboratory Tests Test 01/30/20 00:27 01/30/20 06:00 01/30/20 08:00 Glucose (Fingerstick) 86 mg/dL (70-99) White Blood Count 13.7 x10^3/uL (4.0-11.0) Red Blood Count 3.99 x10^6/uL (3.50-5.40) Hemoglobin 11.2 g/dL (12.0-15.5) Hematocrit 33.3 % (36.0-47.0) Mean Corpuscular Volume 83 fL (79-100) Mean Corpuscular Hemoglobin 28 pg (25-35) Mean Corpuscular Hemoglobin Concent 34 g/dL (31-37) Red Cell Distribution Width 15.8 % (11.5-14.5) Platelet Count 355 x10^3/uL (140-400) Neutrophils (%) (Auto) 90 % (31-73) Lymphocytes (%) (Auto) 5 % (24-48) Monocytes (%) (Auto) 4 % (0-9) Eosinophils (%) (Auto) 1 % (0-3) Basophils (%) (Auto) 0 % (0-3) Neutrophils # (Auto) 12.4 x10^3/uL (1.8-7.7) Lymphocytes # (Auto) 0.6 x10^3/uL (1.0-4.8) Monocytes # (Auto) 0.5 x10^3/uL (0.0-1.1) Eosinophils # (Auto) 0.2 x10^3/uL (0.0-0.7) Basophils # (Auto) 0.0 x10^3/uL (0.0-0.2) Sodium Level 133 mmol/L (136-145) Potassium Level 3.9 mmol/L (3.5-5.1) Chloride Level 97 mmol/L (98-107) Carbon Dioxide Level 30 mmol/L (21-32) Anion Gap 6 (6-14) Blood Urea Nitrogen 18 mg/dL (7-20) Creatinine 0.7 mg/dL (0.6-1.0) Estimated GFR (Cockcroft-Gault) 90.9 BUN/Creatinine Ratio 26 (6-20) Glucose Level 114 mg/dL (70-99) Calcium Level 7.8 mg/dL (8.5-10.1) Total Bilirubin 0.6 mg/dL (0.2-1.0) Aspartate Amino Transf (AST/SGOT) 56 U/L (15-37) Alanine Aminotransferase (ALT/SGPT) 44 U/L (14-59) Alkaline Phosphatase 88 U/L (46-116) Total Protein 5.6 g/dL (6.4-8.2) Albumin 1.9 g/dL (3.4-5.0) Albumin/Globulin Ratio 0.5 (1.0-1.7) O2 Saturation 93 % (92-99) Arterial Blood pH 7.48 (7.35-7.45) Arterial Blood pCO2 at Patient Temp 36 mmHg (35-46) Arterial Blood pO2 at Patient Temp 70 mmHg (75-108) Arterial Blood HCO3 26 mmol/L (21-28) Arterial Blood Base Excess 2 mmol/L (-3-3) FiO2 80 Medications Active Scripts Medications Dose Route/Sig Max Daily Dose Days Date Category Keflex (Cephalexin) 500 Mg Capsule 500 Mg PO QID 10 06/20/18 Rx Welch 5-325 Tablet (Acetaminophen/Hydrocodone Bitart) 1 Each Tablet 1 Tab PO PRN Q6HRS PRN 06/20/18 Rx Comments CXR IMPRESSION: 1. Widespread airspace disease, not significantly changed. 2. Stable position of tubes and lines. Impression . IMPRESSION: 1. Acute hypoxic respiratory failure secondary to COVID-19 pneumonia and sepsis. intubated 01/24/20 2. Abnormal chest x-ray with bilateral patchy infiltrates compatible with COVID-19 pneumonia. COVID-19 + 3. Underlying obesity. 4. Hypertension 5. Hypotension- improved 6, COVID-19 sepsis Plan . Continue current support, remains relatively stable. We will continue the same Case discussed with RT, and RN Antibiotics per ID--rocephin and azithromycin Status post plasma exchange 01/22 Continue steroids Start tube feeding today Total cumulative critical care time of 30 minutes reviewing data, labs, chest x- ray, and formulating a plan CODE: FULL DVT/GI PPX: [email or web address] Manning MD Jan 30, 2020 09:32
[2020-01-30] MEDS: MIDAZOLAM 100mg/100ml NS BAG 100 ML IV PRN ×2 (10:04→22:42)
--- NOTE | 2020-01-30 10:24 | NUR ---
SS following up with discharge planning. SS reviewed pt chart and discussed with pt RN. Pt remains on the vent at this time at 80%. Pt is on IV Rocephin. Pt COVID19 positive. SS will continue to follow for discharge planning.
--- NOTE | 2020-01-30 10:35 | PDOC ---
Infectious Disease Note Subjective Subjective Orally intubated/sedated, FiO2 80% PEEP 12 No fevers last 24 hrs TF 40 ml/hr ROS ROS unobtainable due to patient's condition Vital Sign Vital Signs Vital Signs Date Time Temp Pulse Resp B/P (MAP) Pulse Ox O2 Delivery O2 Flow Rate FiO2 01/30/20 10:04 Ventilator 01/30/20 09:33 96 01/30/20 09:00 55 24 101/50 (67) 01/30/20 08:00 93.3 93.3 01/30/20 03:30 40.0 Physical Exam PHYSICAL EXAM GENERAL: Orally intubated, on ventilator, sedated, + mitts HEENT: Both pupils are round and reacting but discongete. No conjunctival lesion, ETT, OGT NECK: Supple, no JVP, no lymphadenopathy. LUNGS: Clear. HEART: S1, S2 regular. ABDOMEN: Obese, soft, + BS : Vasquez EXTREMITIES: Generalized edema. SKIN: warm to touch. No signs of infection NEUROLOGIC: Sedated on a ventilator Right-sided CVC without signs of infection Labs Lab Laboratory Tests Test 01/30/20 00:27 01/30/20 06:00 01/30/20 08:00 Glucose (Fingerstick) 86 mg/dL (70-99) White Blood Count 13.7 x10^3/uL (4.0-11.0) Red Blood Count 3.99 x10^6/uL (3.50-5.40) Hemoglobin 11.2 g/dL (12.0-15.5) Hematocrit 33.3 % (36.0-47.0) Mean Corpuscular Volume 83 fL (79-100) Mean Corpuscular Hemoglobin 28 pg (25-35) Mean Corpuscular Hemoglobin Concent 34 g/dL (31-37) Red Cell Distribution Width 15.8 % (11.5-14.5) Platelet Count 355 x10^3/uL (140-400) Neutrophils (%) (Auto) 90 % (31-73) Lymphocytes (%) (Auto) 5 % (24-48) Monocytes (%) (Auto) 4 % (0-9) Eosinophils (%) (Auto) 1 % (0-3) Basophils (%) (Auto) 0 % (0-3) Neutrophils # (Auto) 12.4 x10^3/uL (1.8-7.7) Lymphocytes # (Auto) 0.6 x10^3/uL (1.0-4.8) Monocytes # (Auto) 0.5 x10^3/uL (0.0-1.1) Eosinophils # (Auto) 0.2 x10^3/uL (0.0-0.7) Basophils # (Auto) 0.0 x10^3/uL (0.0-0.2) Sodium Level 133 mmol/L (136-145) Potassium Level 3.9 mmol/L (3.5-5.1) Chloride Level 97 mmol/L (98-107) Carbon Dioxide Level 30 mmol/L (21-32) Anion Gap 6 (6-14) Blood Urea Nitrogen 18 mg/dL (7-20) Creatinine 0.7 mg/dL (0.6-1.0) Estimated GFR (Cockcroft-Gault) 90.9 BUN/Creatinine Ratio 26 (6-20) Glucose Level 114 mg/dL (70-99) Calcium Level 7.8 mg/dL (8.5-10.1) Total Bilirubin 0.6 mg/dL (0.2-1.0) Aspartate Amino Transf (AST/SGOT) 56 U/L (15-37) Alanine Aminotransferase (ALT/SGPT) 44 U/L (14-59) Alkaline Phosphatase 88 U/L (46-116) Total Protein 5.6 g/dL (6.4-8.2) Albumin 1.9 g/dL (3.4-5.0) Albumin/Globulin Ratio 0.5 (1.0-1.7) O2 Saturation 93 % (92-99) Arterial Blood pH 7.48 (7.35-7.45) Arterial Blood pCO2 at Patient Temp 36 mmHg (35-46) Arterial Blood pO2 at Patient Temp 70 mmHg (75-108) Arterial Blood HCO3 26 mmol/L (21-28) Arterial Blood Base Excess 2 mmol/L (-3-3) FiO2 80 Objective Assessment COVID 19 infection -Status post plasma and Remdesivir treatment, 01/22 -CRP 163 ( 101) Pneumonia from COVID-19. Acute hypoxic resp failure from above requiring intubation/ventilation 80% and 12 PEEP Fever. Improved Obesity. Hypertension. Hypernatremia Plan Plan of Care Completed Plasma and Remsidivir, azithromycin Rocephin (01/21) Steroids Probiotics Maintain aspiration precautions Critically ill D/w nursing - Neuro eval. D/c Sedrick Attending Co-Sign Attending Co-Sign The patient was seen and interviewed as well as examined at the bedside. The chart was reviewed. The case was discussed. Agree with the plan of care. ALVIN GODOY APRN Jan 30, 2020 10:35 GRISEL JONES MD Jan 30, 2020 16:07
--- NOTE | 2020-01-30 15:45 | PDOC ---
PROGRESS NOTES Chief Complaint Chief Complaint Assessment/Plan ASSESSMENT Acute Hypoxic Respiratory Failure Secondary to COVID-PNA multifocal pulmonary infiltrates.// follow-up to resolution. super Morbid Obesity HTN NORMOCYTIC ANEMIA severe protein-caloric malnutrition PLAN - CONT ICU given hypoxic resp failure - dexamethasone 6 mg IV daily - finished zithromax , continue Rocephin - ID consult for plasma and remdesevir // completed - pulm consult given hypoxia - dvt ppx: lovenox 40 MG BID - GI ppx: pepcid FULL CODE VENT ICU -Status post plasma and Remdesivir treatment -CRP 163 LOS greater than 2 midnights given resp failure, COVID PNA 35 MIN CC TIME The patient was evaluated during the global COVID-19 pandemic, and that diagnosis was suspected/considered upon their initial presentation. Their evaluation, treatment and testing was consistent with current guidelines for patients who present with complaints or symptoms that may be related to COVID- 19. VTE Prophylaxis Ordered VTE Prophylaxis Devices: Yes VTE Pharmacological Prophylaxi: Yes History of Present Illness History of Present Illness 01/29 No acute events reported overnight, case discussed with nursing staff patient in no acute distress cxr with diffuse infiltrates COVID-19 CRITERIA: The patient was evaluated during the global COVID-19 pandemic, and that diagnosis was suspected/considered upon their initial presentation. Their evaluation, treatment and testing was consistent with current guidelines for patients who present with complaints or symptoms that may be related to COVID-19. Justicifation of Admission Dx: Justicifation of Admission Dx: Justifications for Admission: Justification of Admission Dx: Yes Respiratory Failure: Severe Resp Distress Vitals Vitals Vital Signs Date Time Temp Pulse Resp B/P (MAP) Pulse Ox O2 Delivery O2 Flow Rate FiO2 01/30/20 14:00 44 24 99/47 (64) 99 Ventilator 01/30/20 12:00 98.9 98.9 01/30/20 03:30 40.0 Physical Exam Physical Exam GENERAL: Orally intubated, on ventilator, sedated, + mitts HEENT: Both pupils are round and reacting. No conjunctival lesion, ETT, OGT NECK: Supple, no JVP, no lymphadenopathy. LUNGS: Clear. HEART: S1, S2 regular. ABDOMEN: Obese, soft, + BS : Vasquez EXTREMITIES: Generalized edema. SKIN: warm to touch. No signs of infection NEUROLOGIC: Sedated on a ventilator Right-sided CVC without signs of infection General: Other Heart: Regular rate Abdomen: Other Extremities: No cyanosis Skin: No breakdown Labs LABS Laboratory Tests Test 01/30/20 00:27 01/30/20 06:00 01/30/20 08:00 Glucose (Fingerstick) 86 mg/dL (70-99) White Blood Count 13.7 x10^3/uL (4.0-11.0) Red Blood Count 3.99 x10^6/uL (3.50-5.40) Hemoglobin 11.2 g/dL (12.0-15.5) Hematocrit 33.3 % (36.0-47.0) Mean Corpuscular Volume 83 fL (79-100) Mean Corpuscular Hemoglobin 28 pg (25-35) Mean Corpuscular Hemoglobin Concent 34 g/dL (31-37) Red Cell Distribution Width 15.8 % (11.5-14.5) Platelet Count 355 x10^3/uL (140-400) Neutrophils (%) (Auto) 90 % (31-73) Lymphocytes (%) (Auto) 5 % (24-48) Monocytes (%) (Auto) 4 % (0-9) Eosinophils (%) (Auto) 1 % (0-3) Basophils (%) (Auto) 0 % (0-3) Neutrophils # (Auto) 12.4 x10^3/uL (1.8-7.7) Lymphocytes # (Auto) 0.6 x10^3/uL (1.0-4.8) Monocytes # (Auto) 0.5 x10^3/uL (0.0-1.1) Eosinophils # (Auto) 0.2 x10^3/uL (0.0-0.7) Basophils # (Auto) 0.0 x10^3/uL (0.0-0.2) Sodium Level 133 mmol/L (136-145) Potassium Level 3.9 mmol/L (3.5-5.1) Chloride Level 97 mmol/L (98-107) Carbon Dioxide Level 30 mmol/L (21-32) Anion Gap 6 (6-14) Blood Urea Nitrogen 18 mg/dL (7-20) Creatinine 0.7 mg/dL (0.6-1.0) Estimated GFR (Cockcroft-Gault) 90.9 BUN/Creatinine Ratio 26 (6-20) Glucose Level 114 mg/dL (70-99) Calcium Level 7.8 mg/dL (8.5-10.1) Total Bilirubin 0.6 mg/dL (0.2-1.0) Aspartate Amino Transf (AST/SGOT) 56 U/L (15-37) Alanine Aminotransferase (ALT/SGPT) 44 U/L (14-59) Alkaline Phosphatase 88 U/L (46-116) Total Protein 5.6 g/dL (6.4-8.2) Albumin 1.9 g/dL (3.4-5.0) Albumin/Globulin Ratio 0.5 (1.0-1.7) O2 Saturation 93 % (92-99) Arterial Blood pH 7.48 (7.35-7.45) Arterial Blood pCO2 at Patient Temp 36 mmHg (35-46) Arterial Blood pO2 at Patient Temp 70 mmHg (75-108) Arterial Blood HCO3 26 mmol/L (21-28) Arterial Blood Base Excess 2 mmol/L (-3-3) FiO2 80 Assessment and Plan Assessmemt and Plan Problems Medical Problems: (1) Pneumonia due to COVID-19 virus Status: Acute Comment Review of Relevant I have reviewed the following items stephon (where applicable) has been applied. Labs Laboratory Tests Test 01/29/20 06:00 01/29/20 08:35 01/30/20 00:27 01/30/20 06:00 White Blood Count 11.1 x10^3/uL (4.0-11.0) 13.7 x10^3/uL (4.0-11.0) Red Blood Count 3.95 x10^6/uL (3.50-5.40) 3.99 x10^6/uL (3.50-5.40) Hemoglobin 11.0 g/dL (12.0-15.5) 11.2 g/dL (12.0-15.5) Hematocrit 32.8 % (36.0-47.0) 33.3 % (36.0-47.0) Mean Corpuscular Volume 83 fL (79-100) 83 fL (79-100) Mean Corpuscular Hemoglobin 28 pg (25-35) 28 pg (25-35) Mean Corpuscular Hemoglobin Concent 34 g/dL (31-37) 34 g/dL (31-37) Red Cell Distribution Width 15.3 % (11.5-14.5) 15.8 % (11.5-14.5) Platelet Count 405 x10^3/uL (140-400) 355 x10^3/uL (140-400) Neutrophils (%) (Auto) 91 % (31-73) 90 % (31-73) Lymphocytes (%) (Auto) 4 % (24-48) 5 % (24-48) Monocytes (%) (Auto) 4 % (0-9) 4 % (0-9) Eosinophils (%) (Auto) 1 % (0-3) 1 % (0-3) Basophils (%) (Auto) 0 % (0-3) 0 % (0-3) Neutrophils # (Auto) 10.0 x10^3/uL (1.8-7.7) 12.4 x10^3/uL (1.8-7.7) Lymphocytes # (Auto) 0.4 x10^3/uL (1.0-4.8) 0.6 x10^3/uL (1.0-4.8) Monocytes # (Auto) 0.5 x10^3/uL (0.0-1.1) 0.5 x10^3/uL (0.0-1.1) Eosinophils # (Auto) 0.1 x10^3/uL (0.0-0.7) 0.2 x10^3/uL (0.0-0.7) Basophils # (Auto) 0.0 x10^3/uL (0.0-0.2) 0.0 x10^3/uL (0.0-0.2) Sodium Level 135 mmol/L (136-145) 133 mmol/L (136-145) Potassium Level 4.4 mmol/L (3.5-5.1) 3.9 mmol/L (3.5-5.1) Chloride Level 100 mmol/L (98-107) 97 mmol/L (98-107) Carbon Dioxide Level 28 mmol/L (21-32) 30 mmol/L (21-32) Anion Gap 7 (6-14) 6 (6-14) Blood Urea Nitrogen 19 mg/dL (7-20) 18 mg/dL (7-20) Creatinine 0.6 mg/dL (0.6-1.0) 0.7 mg/dL (0.6-1.0) Estimated GFR (Cockcroft-Gault) 108.6 90.9 BUN/Creatinine Ratio 32 (6-20) 26 (6-20) Glucose Level 164 mg/dL (70-99) 114 mg/dL (70-99) Calcium Level 8.1 mg/dL (8.5-10.1) 7.8 mg/dL (8.5-10.1) Total Bilirubin 0.3 mg/dL (0.2-1.0) 0.6 mg/dL (0.2-1.0) Aspartate Amino Transf (AST/SGOT) 31 U/L (15-37) 56 U/L (15-37) Alanine Aminotransferase (ALT/SGPT) 24 U/L (14-59) 44 U/L (14-59) Alkaline Phosphatase 88 U/L (46-116) 88 U/L (46-116) Total Protein 5.8 g/dL (6.4-8.2) 5.6 g/dL (6.4-8.2) Albumin 2.0 g/dL (3.4-5.0) 1.9 g/dL (3.4-5.0) Albumin/Globulin Ratio 0.5 (1.0-1.7) 0.5 (1.0-1.7) O2 Saturation 92 % (92-99) Arterial Blood pH 7.44 (7.35-7.45) Arterial Blood pCO2 at Patient Temp 38 mmHg (35-46) Arterial Blood pO2 at Patient Temp 69 mmHg (75-108) Arterial Blood HCO3 25 mmol/L (21-28) Arterial Blood Base Excess 1 mmol/L (-3-3) FiO2 80% + 12 peep Glucose (Fingerstick) 86 mg/dL (70-99) Test 01/30/20 08:00 O2 Saturation 93 % (92-99) Arterial Blood pH 7.48 (7.35-7.45) Arterial Blood pCO2 at Patient Temp 36 mmHg (35-46) Arterial Blood pO2 at Patient Temp 70 mmHg (75-108) Arterial Blood HCO3 26 mmol/L (21-28) Arterial Blood Base Excess 2 mmol/L (-3-3) FiO2 80 Laboratory Tests Test 01/30/20 00:27 01/30/20 06:00 01/30/20 08:00 Glucose (Fingerstick) 86 mg/dL (70-99) White Blood Count 13.7 x10^3/uL (4.0-11.0) Red Blood Count 3.99 x10^6/uL (3.50-5.40) Hemoglobin 11.2 g/dL (12.0-15.5) Hematocrit 33.3 % (36.0-47.0) Mean Corpuscular Volume 83 fL (79-100) Mean Corpuscular Hemoglobin 28 pg (25-35) Mean Corpuscular Hemoglobin Concent 34 g/dL (31-37) Red Cell Distribution Width 15.8 % (11.5-14.5) Platelet Count 355 x10^3/uL (140-400) Neutrophils (%) (Auto) 90 % (31-73) Lymphocytes (%) (Auto) 5 % (24-48) Monocytes (%) (Auto) 4 % (0-9) Eosinophils (%) (Auto) 1 % (0-3) Basophils (%) (Auto) 0 % (0-3) Neutrophils # (Auto) 12.4 x10^3/uL (1.8-7.7) Lymphocytes # (Auto) 0.6 x10^3/uL (1.0-4.8) Monocytes # (Auto) 0.5 x10^3/uL (0.0-1.1) Eosinophils # (Auto) 0.2 x10^3/uL (0.0-0.7) Basophils # (Auto) 0.0 x10^3/uL (0.0-0.2) Sodium Level 133 mmol/L (136-145) Potassium Level 3.9 mmol/L (3.5-5.1) Chloride Level 97 mmol/L (98-107) Carbon Dioxide Level 30 mmol/L (21-32) Anion Gap 6 (6-14) Blood Urea Nitrogen 18 mg/dL (7-20) Creatinine 0.7 mg/dL (0.6-1.0) Estimated GFR (Cockcroft-Gault) 90.9 BUN/Creatinine Ratio 26 (6-20) Glucose Level 114 mg/dL (70-99) Calcium Level 7.8 mg/dL (8.5-10.1) Total Bilirubin 0.6 mg/dL (0.2-1.0) Aspartate Amino Transf (AST/SGOT) 56 U/L (15-37) Alanine Aminotransferase (ALT/SGPT) 44 U/L (14-59) Alkaline Phosphatase 88 U/L (46-116) Total Protein 5.6 g/dL (6.4-8.2) Albumin 1.9 g/dL (3.4-5.0) Albumin/Globulin Ratio 0.5 (1.0-1.7) O2 Saturation 93 % (92-99) Arterial Blood pH 7.48 (7.35-7.45) Arterial Blood pCO2 at Patient Temp 36 mmHg (35-46) Arterial Blood pO2 at Patient Temp 70 mmHg (75-108) Arterial Blood HCO3 26 mmol/L (21-28) Arterial Blood Base Excess 2 mmol/L (-3-3) FiO2 80 Medications Current Medications Acetaminophen (Tylenol) 1,000 mg 1X ONCE PO Last administered on 01/21/20at 17:00; Start 01/21/20 at 17:00; Stop 01/21/20 at 17:01; Status DC Ondansetron HCl (Zofran) 4 mg PRN Q8HRS PRN IV NAUSEA/VOMITING; Start 01/21/20 at 18:00; Stop 01/22/20 at 07:55; Status DC Dexamethasone Sodium Phosphate (Decadron) 6 mg 1X ONCE IVP Last administered on 01/21/20at 18:14; Start 01/21/20 at 18:00; Stop 01/21/20 at 18:01; Status DC Ceftriaxone Sodium (Rocephin) 1 gm 1X ONCE IVP Last administered on 01/21/20at 18:14; Start 01/21/20 at 18:00; Stop 01/21/20 at 18:01; Status DC Azithromycin 500 mg/Sodium Chloride 250 ml @ 250 mls/hr Q24H IV Last administered on 01/25/20at 19:00; Start 01/22/20 at 19:00; Stop 01/26/20 at 09:05; Status DC Azithromycin 250 ml @ 250 mls/hr 1X ONCE IV Last administered on 01/21/20at 18:25; Start 01/21/20 at 18:15; Stop 01/21/20 at 19:14; Status DC Dexamethasone Sodium Phosphate (Decadron) 6 mg DAILY IVP Last administered on 01/30/20at 08:10; Start 01/22/20 at 09:00 Ceftriaxone Sodium (Rocephin) 1 gm Q24H IVP Last administered on 01/29/20at 20:14; Start 01/22/20 at 20:00 Azithromycin 250 ml @ 250 mls/hr 1X ONCE IV ; Start 01/21/20 at 19:45; Stop 01/21/20 at 20:44; Status UNV Acetaminophen (Tylenol) 650 mg PRN Q6HRS PRN PO Headaches, Temp > 101.5' Last administered on 01/25/20at 20:45; Start 01/21/20 at 19:45 Ondansetron HCl (Zofran) 4 mg PRN Q6HRS PRN IVP NAUSEA/VOMITING; Start 01/21/20 at 19:45 Al Hydroxide/Mg Hydroxide (Mylanta Plus Xs) 30 ml PRN Q3HRS PRN PO HEARTBURN / GAS; Start 01/21/20 at 19:45 Famotidine (Pepcid) 20 mg BID PO Last administered on 01/30/20at 08:10; Start 01/21/20 at 21:00 Enoxaparin Sodium (Lovenox 40mg Syringe) 40 mg Q24H SQ Last administered on 01/21/20at 21:07; Start 01/21/20 at 20:00; Stop 01/22/20 at 10:45; Status DC Sodium Chloride (Normal Saline Flush) 3 ml QSHIFT PRN IV AFTER MEDS AND BLOOD DRAWS; Start 01/21/20 at 19:45 Senna/Docusate Sodium (Senna Plus) 1 tab BID PO Last administered on 01/30/20at 08:09; Start 01/21/20 at 21:00 Magnesium Hydroxide (Milk Of Magnesia) 2,400 mg PRN Q12HR PRN PO CONSTIPATION; Start 01/21/20 at 19:45 Sterile Water (WATER for RESP) 1,000 ml CONT PRN INH VIA VAPOTHERM DEVICE Last administered on 01/23/20at 12:46; Start 01/22/20 at 04:30 Lactobacillus Rhamnosus (Culturelle) 1 cap BID PO Last administered on 01/30/20 08:10; Start 01/22/20 at 09:00 Non-Formulary Medication 1 ea/ Sodium Chloride 210 ml @ 420 mls/hr ONCE ONCE IV Last administered on 01/22/20at 10:44; Start 01/22/20 at 11:00; Stop 01/22/20 at 11:29; Status DC Non-Formulary Medication 1 ea/ Sodium Chloride 230 ml @ 460 mls/hr DAILY IV Last administered on 01/26/20at 09:58; Start 01/23/20 at 09:00; Stop 01/26/20 at 09:29; Status DC Enoxaparin Sodium (Lovenox 40mg Syringe) 40 mg BID SQ Last administered on 01/30/20 08:09; Start 01/22/20 at 11:00 Lorazepam (Ativan Inj) 0.5 mg PRN Q4HRS PRN IVP ANXIETY / AGITATION; Start 01/23/20 at 21:00 Lorazepam (Ativan Inj) 0.05 mg 1X ONCE IVP Last administered on 01/23/20at 21:13; Start 01/23/20 at 21:15; Stop 01/23/20 at 21:31; Status DC Fentanyl Citrate 30 ml @ 0 mls/hr CONT PRN IV SEE PROTOCOL Last administered on 01/30/20at 10:04; Start 01/23/20 at 22:45 Propofol 100 ml @ 0 mls/hr CONT PRN IV SEE PROTOCOL; Start 01/23/20 at 22:45 Midazolam HCl 100 ml @ 0 mls/hr CONT PRN IV SEE PROTOCOL Last administered on 01/30/20at 10:04; Start 01/23/20 at 22:45 Vecuronium [place] (Norcuron Bolus) 10 mg STK-MED ONCE IV ; Start 01/23/20 at 23:24; Stop 01/23/20 at 23:25; Status DC Vecuronium [place] (Norcuron Bolus) 60 mg 1X ONCE IV Last administered on 01/23/20at 23:30; Start 01/23/20 at 23:30; Stop 01/23/20 at 23:35; Status DC Norepinephrine Bitartrate 8 mg/ Dextrose 258 ml @ 20.666 mls/ hr CONT PRN IV PER PROTOCOL Last administered on 01/24/20at 12:28; Start 01/24/20 at 02:15 Vecuronium [place] (Norcuron Bolus) 6 mg PRN Q4HRS PRN IV SEDATION Last administered on 01/24/20at 15:40; Start 01/24/20 at 04:30 Succinylcholine Chloride (Anectine) 200 mg STK-MED ONCE .ROUTE ; Start 01/23/20 at 23:00; Stop 01/24/20 at 08:24; Status DC Etomidate (Amidate) 20 mg STK-MED ONCE IV ; Start 01/23/20 at 23:00; Stop 01/24/20 at 08:24; Status DC Ringer's Solution 1,000 ml @ 75 mls/hr [id number] IV Last administered on 01/25/20at 16:21; Start 01/24/20 at 12:30; Stop 01/26/20 at 09:17; Status DC Hydralazine HCl (Apresoline Inj) 10 mg PRN Q4HRS PRN IVP ELEVATED BP, SEE COMMENTS; Start 01/28/20 at 14:00 Active Scripts Active Keflex (Cephalexin) 500 Mg Capsule 500 Mg PO QID 10 Days [place] 5-325 Tablet (Acetaminophen/Hydrocodone Bitart) 1 Each Tablet 1 Tab PO PRN Q6HRS PRN Vitals/I & O Vital Sign - Last 24 Hours 01/29/20 01/29/20 01/29/20 01/29/20 16:00 16:00 16:10 17:00 Temp 97.6 97.6 Pulse 42 42 Resp 28 28 B/P (MAP) 162/81 (108) Pulse Ox 97 95 97 O2 Delivery Ventilator Mechanical Ventilator Ventilator Ventilator 01/29/20 01/29/20 01/29/20 01/29/20 18:00 19:00 19:24 19:40 Pulse 42 44 Resp 28 28 B/P (MAP) 150/78 (102) 143/75 (97) Pulse Ox 98 98 95 O2 Delivery Ventilator Ventilator Mechanical Ventilator O2 Flow Rate 40.0 40.0 01/29/20 01/29/20 01/29/20 01/29/20 20:00 20:32 20:35 21:00 Temp 97.2 97.2 Pulse 43 46 Resp 28 28 28 B/P (MAP) 128/73 (91) 110/60 (77) Pulse Ox 97 98 96 98 O2 Delivery Ventilator Ventilator Ventilator Ventilator 01/29/20 01/29/20 01/29/20 01/30/20 22:00 23:00 23:09 00:00 Pulse 54 59 Resp 28 B/P (MAP) 122/70 (87) 125/65 (85) Pulse Ox 99 100 99 O2 Delivery Ventilator Ventilator Ventilator Mechanical Ventilator O2 Flow Rate 40.0 01/30/20 01/30/20 01/30/20 01/30/20 00:01 01:00 02:00 02:02 Temp 96.5 96.5 Pulse 53 54 68 Resp B/P (MAP) 109/55 (73) 139/78 (98) 125/69 (87) Pulse Ox 98 97 96 98 O2 Delivery Ventilator Ventilator Ventilator Ventilator 01/30/20 01/30/20 01/30/20 01/30/20 02:33 03:00 03:30 03:53 Temp 98.1 98.1 Pulse 59 B/P (MAP) 97/41 (59) Pulse Ox 96 97 96 O2 Delivery Ventilator Ventilator Mechanical Ventilator Ventilator O2 Flow Rate 40.0 01/30/20 01/30/20 01/30/20 01/30/20 04:00 05:00 06:00 07:00 Pulse 76 62 63 63 Resp B/P (MAP) 107/50 (69) 99/52 (68) 99/45 (63) 102/51 (68) Pulse Ox 95 98 97 97 O2 Delivery Ventilator Ventilator Ventilator Ventilator 01/30/20 01/30/20 01/30/20 01/30/20 08:00 08:11 08:15 09:00 Temp 93.3 93.3 Pulse 66 55 Resp 24 B/P (MAP) 87/41 (56) 101/50 (67) Pulse Ox 95 96 96 O2 Delivery Ventilator Ventilator Mechanical Ventilator Ventilator 01/30/20 01/30/20 01/30/20 01/30/20 09:33 10:00 10:04 10:34 Pulse 55 Resp 24 B/P (MAP) 91/44 (60) Pulse Ox 96 95 O2 Delivery Ventilator Ventilator Ventilator Ventilator 01/30/20 01/30/20 01/30/20 01/30/20 11:00 11:18 12:00 12:00 Temp 98.9 98.9 Pulse 57 53 Resp 24 24 B/P (MAP) 113/65 (81) 130/68 (88) Pulse Ox 96 96 98 O2 Delivery Ventilator Ventilator Mechanical Ventilator Ventilator 01/30/20 01/30/20 01/30/20 12:23 13:00 14:00 Pulse 48 44 Resp 24 24 B/P (MAP) 110/54 (72) 99/47 (64) Pulse Ox 98 99 99 O2 Delivery Ventilator Ventilator Ventilator Intake and Output 01/29/20 01/29/20 01/30/20 15:00 23:00 07:00 Intake Total 300 ml 517 ml 1588 ml Output Total 2080 ml 1220 ml 860 ml Balance -1780 ml -703 ml 728 ml Justicifation of Admission Dx: Justifications for Admission: Justification of Admission Dx: Yes Respiratory Failure: Severe Resp Distress ILIA GALVAN MD Jan 30, 2020 15:45
[2020-01-30] MEDS ORDERED: HEPARIN for IV BOLUS 10,000 UNIT/10 ML VIAL. IV PRN (21:00)
--- NOTE | 2020-01-30 22:00 | NUR ---
Order received from Dr. Mei approx 2100 to initiate heparin gtt DVT/PE protocol. Lovenox evening dose already given. Per pharmacy, heparin gtt can be initiated 12 hours from lovenox dose. Lovenox order d/c, can start heparin gtt tomorrow AM at 0830.
[2020-01-31] VITALS (23 sets, daily range): BP systolic 100–154; BP diastolic 41–84
[2020-01-31 05:58] LABS: BASO # 0.1 x10^3/uL (0.0-0.2); BASO % 0 % (0-3); EOS % 0 % (0-3); HEMATOCRIT 32.4 % (36.0-47.0); HEMOGLOBIN 10.7 g/dL (12.0-15.5); LYMPH # 0.4 x10^3/uL (1.0-4.8); LYMPH % 3 % (24-48); MEAN CORPUSCULAR HEMOGLOBIN 28 pg (25-35); MEAN CORPUSCULAR HGB CONC 33 g/dL (31-37); MEAN CORPUSCULAR VOLUME 84 fL (79-100); MONO # 0.6 x10^3/uL (0.0-1.1); MONO % 4 % (0-9); NEUT # 11.9 x10^3/uL (1.8-7.7); NEUT % 92 % (31-73); PLATELET COUNT 325 x10^3/uL (140-400); RED BLOOD COUNT 3.85 x10^6/uL (3.50-5.40); RED CELL DISTRIBUTION WIDTH 15.8 % (11.5-14.5)
[2020-01-31 06:14] LABS: CALCIUM 8.4 mg/dL (8.5-10.1); CREATININE 0.6 mg/dL (0.6-1.0); GFR 108.6; POTASSIUM 4.6 mmol/L (3.5-5.1)
[2020-01-31] MEDS ORDERED: HEPARIN for IV BOLUS 10,000 UNIT/10 ML VIAL. IV ONE (07:15)
[2020-01-31] MEDS: MIDAZOLAM 100mg/100ml NS BAG 100 ML IV PRN ×2 (07:34→17:50)
[2020-01-31] MEDS: LACTOBACILLUS RHAMNOSUS GG 1 CAPSULE. PO SCH ×2 (08:20→21:38)
[2020-01-31] MEDS: FAMOTIDINE 20 MG TABLET. PO SCH ×2 (08:20→21:38)
[2020-01-31] MEDS: SENNOSIDES/DOCUSATE 8.6/50MG TABLET. PO SCH ×2 (08:21→21:38)
[2020-01-31] MEDS: DEXAMETHASONE SOD PHOS 4 MG/ML VIAL IVP SCH (08:21)
[2020-01-31] MEDS: HEPARIN 25,000UTS/250ML PREMIX 250 ML IV PRN (08:41)
[2020-01-31 08:47] LABS: BASE EXCESS ABG 2 mmol/L (-3-3); HCO3 ABG 27 mmol/L (21-28); PCO2 ABG 43 mmHg (35-46); PO2 ABG 101 mmHg (75-108); SAT O2 ABG 97 % (92-99)
[2020-01-31 08:50] LABS: FIO2 ABG 80
--- NOTE | 2020-01-31 08:57 | PDOC ---
PULMONARY PROGRESS NOTES Subjective Nothing new overnight intubated 01/24/20 Assist-control ventilation, sedated Vitals Vital Signs Date Time Temp Pulse Resp B/P (MAP) Pulse Ox O2 Delivery O2 Flow Rate FiO2 01/31/20 08:42 99 Ventilator 01/31/20 06:00 43 24 114/56 (75) 01/31/20 04:00 97.8 97.8 Comments ros unable to obtain sedated on vent Visual exam performed due to COVID-19 pandemic Patient appears to be comfortable in sync with the ventilator, no significant Labs Laboratory Tests Test 01/30/20 00:27 01/30/20 06:00 01/30/20 08:00 01/30/20 18:15 Glucose (Fingerstick) 86 mg/dL (70-99) White Blood Count 13.7 x10^3/uL (4.0-11.0) Red Blood Count 3.99 x10^6/uL (3.50-5.40) Hemoglobin 11.2 g/dL (12.0-15.5) Hematocrit 33.3 % (36.0-47.0) Mean Corpuscular Volume 83 fL (79-100) Mean Corpuscular Hemoglobin 28 pg (25-35) Mean Corpuscular Hemoglobin Concent 34 g/dL (31-37) Red Cell Distribution Width 15.8 % (11.5-14.5) Platelet Count 355 x10^3/uL (140-400) Neutrophils (%) (Auto) 90 % (31-73) Lymphocytes (%) (Auto) 5 % (24-48) Monocytes (%) (Auto) 4 % (0-9) Eosinophils (%) (Auto) 1 % (0-3) Basophils (%) (Auto) 0 % (0-3) Neutrophils # (Auto) 12.4 x10^3/uL (1.8-7.7) Lymphocytes # (Auto) 0.6 x10^3/uL (1.0-4.8) Monocytes # (Auto) 0.5 x10^3/uL (0.0-1.1) Eosinophils # (Auto) 0.2 x10^3/uL (0.0-0.7) Basophils # (Auto) 0.0 x10^3/uL (0.0-0.2) Sodium Level 133 mmol/L (136-145) Potassium Level 3.9 mmol/L (3.5-5.1) Chloride Level 97 mmol/L (98-107) Carbon Dioxide Level 30 mmol/L (21-32) Anion Gap 6 (6-14) Blood Urea Nitrogen 18 mg/dL (7-20) Creatinine 0.7 mg/dL (0.6-1.0) Estimated GFR (Cockcroft-Gault) 90.9 BUN/Creatinine Ratio 26 (6-20) Glucose Level 114 mg/dL (70-99) Calcium Level 7.8 mg/dL (8.5-10.1) Total Bilirubin 0.6 mg/dL (0.2-1.0) Aspartate Amino Transf (AST/SGOT) 56 U/L (15-37) Alanine Aminotransferase (ALT/SGPT) 44 U/L (14-59) Alkaline Phosphatase 88 U/L (46-116) Total Protein 5.6 g/dL (6.4-8.2) Albumin 1.9 g/dL (3.4-5.0) Albumin/Globulin Ratio 0.5 (1.0-1.7) O2 Saturation 93 % (92-99) Arterial Blood pH 7.48 (7.35-7.45) Arterial Blood pCO2 at Patient Temp 36 mmHg (35-46) Arterial Blood pO2 at Patient Temp 70 mmHg (75-108) Arterial Blood HCO3 26 mmol/L (21-28) Arterial Blood Base Excess 2 mmol/L (-3-3) FiO2 80 D-Dimer (Shirley) 3.00 ug/mlFEU (0.00-0.50) Test 01/31/20 00:36 01/31/20 05:45 01/31/20 08:45 Glucose (Fingerstick) 165 mg/dL (70-99) White Blood Count 13.0 x10^3/uL (4.0-11.0) Red Blood Count 3.85 x10^6/uL (3.50-5.40) Hemoglobin 10.7 g/dL (12.0-15.5) Hematocrit 32.4 % (36.0-47.0) Mean Corpuscular Volume 84 fL (79-100) Mean Corpuscular Hemoglobin 28 pg (25-35) Mean Corpuscular Hemoglobin Concent 33 g/dL (31-37) Red Cell Distribution Width 15.8 % (11.5-14.5) Platelet Count 325 x10^3/uL (140-400) Neutrophils (%) (Auto) 92 % (31-73) Lymphocytes (%) (Auto) 3 % (24-48) Monocytes (%) (Auto) 4 % (0-9) Eosinophils (%) (Auto) 0 % (0-3) Basophils (%) (Auto) 0 % (0-3) Neutrophils # (Auto) 11.9 x10^3/uL (1.8-7.7) Lymphocytes # (Auto) 0.4 x10^3/uL (1.0-4.8) Monocytes # (Auto) 0.6 x10^3/uL (0.0-1.1) Eosinophils # (Auto) 0.0 x10^3/uL (0.0-0.7) Basophils # (Auto) 0.1 x10^3/uL (0.0-0.2) Sodium Level 135 mmol/L (136-145) Potassium Level 4.6 mmol/L (3.5-5.1) Chloride Level 101 mmol/L (98-107) Carbon Dioxide Level 31 mmol/L (21-32) Anion Gap 3 (6-14) Blood Urea Nitrogen 17 mg/dL (7-20) Creatinine 0.6 mg/dL (0.6-1.0) Estimated GFR (Cockcroft-Gault) 108.6 Glucose Level 159 mg/dL (70-99) Calcium Level 8.4 mg/dL (8.5-10.1) O2 Saturation 97 % (92-99) Arterial Blood pH 7.41 (7.35-7.45) Arterial Blood pCO2 at Patient Temp 43 mmHg (35-46) Arterial Blood pO2 at Patient Temp 101 mmHg (75-108) Arterial Blood HCO3 27 mmol/L (21-28) Arterial Blood Base Excess 2 mmol/L (-3-3) FiO2 80 Laboratory Tests Test 01/30/20 18:15 01/31/20 00:36 01/31/20 05:45 01/31/20 08:45 D-Dimer (Shirley) 3.00 ug/mlFEU (0.00-0.50) Glucose (Fingerstick) 165 mg/dL (70-99) White Blood Count 13.0 x10^3/uL (4.0-11.0) Red Blood Count 3.85 x10^6/uL (3.50-5.40) Hemoglobin 10.7 g/dL (12.0-15.5) Hematocrit 32.4 % (36.0-47.0) Mean Corpuscular Volume 84 fL (79-100) Mean Corpuscular Hemoglobin 28 pg (25-35) Mean Corpuscular Hemoglobin Concent 33 g/dL (31-37) Red Cell Distribution Width 15.8 % (11.5-14.5) Platelet Count 325 x10^3/uL (140-400) Neutrophils (%) (Auto) 92 % (31-73) Lymphocytes (%) (Auto) 3 % (24-48) Monocytes (%) (Auto) 4 % (0-9) Eosinophils (%) (Auto) 0 % (0-3) Basophils (%) (Auto) 0 % (0-3) Neutrophils # (Auto) 11.9 x10^3/uL (1.8-7.7) Lymphocytes # (Auto) 0.4 x10^3/uL (1.0-4.8) Monocytes # (Auto) 0.6 x10^3/uL (0.0-1.1) Eosinophils # (Auto) 0.0 x10^3/uL (0.0-0.7) Basophils # (Auto) 0.1 x10^3/uL (0.0-0.2) Sodium Level 135 mmol/L (136-145) Potassium Level 4.6 mmol/L (3.5-5.1) Chloride Level 101 mmol/L (98-107) Carbon Dioxide Level 31 mmol/L (21-32) Anion Gap 3 (6-14) Blood Urea Nitrogen 17 mg/dL (7-20) Creatinine 0.6 mg/dL (0.6-1.0) Estimated GFR (Cockcroft-Gault) 108.6 Glucose Level 159 mg/dL (70-99) Calcium Level 8.4 mg/dL (8.5-10.1) O2 Saturation 97 % (92-99) Arterial Blood pH 7.41 (7.35-7.45) Arterial Blood pCO2 at Patient Temp 43 mmHg (35-46) Arterial Blood pO2 at Patient Temp 101 mmHg (75-108) Arterial Blood HCO3 27 mmol/L (21-28) Arterial Blood Base Excess 2 mmol/L (-3-3) FiO2 80 Medications Active Scripts Medications Dose Route/Sig Max Daily Dose Days Date Category Keflex (Cephalexin) 500 Mg Capsule 500 Mg PO QID 10 06/20/18 Rx Chappell 5-325 Tablet (Acetaminophen/Hydrocodone Bitart) 1 Each Tablet 1 Tab PO PRN Q6HRS PRN 06/20/18 Rx Comments CXR IMPRESSION: 1. Widespread airspace disease, not significantly changed. 2. Stable position of tubes and lines. Impression . IMPRESSION: 1. Acute hypoxic respiratory failure secondary to COVID-19 pneumonia and sepsis. intubated 01/24/20 2. Abnormal chest x-ray with bilateral patchy infiltrates compatible with COVID-19 pneumonia. COVID-19 + 3. Underlying obesity. 4. Hypertension 5. Hypotension- improved 6, COVID-19 sepsis 7. Presumptive thromboembolic disease related to COVID-19 Plan . D-dimer elevated, started on full dose heparin for presumptive thromboembolic disease Seems to be oxygenating better continue current support, remains relatively stable. We will continue the same Case discussed with RT, and RN Antibiotics per ID--rocephin and azithromycin Status post convalescent serum 01/22 Continue steroids Start tube feeding today Total cumulative critical care time of 30 minutes reviewing data, labs, chest x- ray, and formulating a plan CODE: FULL DVT/GI PPX: lovenox/LEIF Nicholson MD Jan 31, 2020 08:57
--- NOTE | 2020-01-31 09:00 | PDOC ---
Infectious Disease Note Subjective Subjective On sedation, but eyes are open, noncommunicative Remains orally intubated, FiO2 80% PEEP 12 No fevers last 48 hrs Tube feedings 50 ml/hr ROS ROS unobtainable due to patient's condition Vital Sign Vital Signs Vital Signs Date Time Temp Pulse Resp B/P (MAP) Pulse Ox O2 Delivery O2 Flow Rate FiO2 01/31/20 08:42 99 Ventilator 01/31/20 06:00 43 24 114/56 (75) 01/31/20 04:00 97.8 97.8 Physical Exam PHYSICAL EXAM GENERAL: Orally intubated, on ventilator, eyes are open, + mitts in NAD HEENT: Both pupils are round and reacting, + visual threat. No tracking. No conjunctival lesion, ETT, OGT NECK: Supple LUNGS: Diminished aeration bases HEART: S1, S2 regular, will 502 ABDOMEN: Obese, soft, + BS, no guarding : Vasquez EXTREMITIES: Generalized edema. SKIN: warm to touch. No signs of infection NEUROLOGIC: Unresponsive to verbal stimuli Right-sided CVC without signs of infection Labs Lab Laboratory Tests Test 01/30/20 18:15 01/31/20 00:36 01/31/20 05:45 01/31/20 08:45 D-Dimer (Shirley) 3.00 ug/mlFEU (0.00-0.50) Glucose (Fingerstick) 165 mg/dL (70-99) White Blood Count 13.0 x10^3/uL (4.0-11.0) Red Blood Count 3.85 x10^6/uL (3.50-5.40) Hemoglobin 10.7 g/dL (12.0-15.5) Hematocrit 32.4 % (36.0-47.0) Mean Corpuscular Volume 84 fL (79-100) Mean Corpuscular Hemoglobin 28 pg (25-35) Mean Corpuscular Hemoglobin Concent 33 g/dL (31-37) Red Cell Distribution Width 15.8 % (11.5-14.5) Platelet Count 325 x10^3/uL (140-400) Neutrophils (%) (Auto) 92 % (31-73) Lymphocytes (%) (Auto) 3 % (24-48) Monocytes (%) (Auto) 4 % (0-9) Eosinophils (%) (Auto) 0 % (0-3) Basophils (%) (Auto) 0 % (0-3) Neutrophils # (Auto) 11.9 x10^3/uL (1.8-7.7) Lymphocytes # (Auto) 0.4 x10^3/uL (1.0-4.8) Monocytes # (Auto) 0.6 x10^3/uL (0.0-1.1) Eosinophils # (Auto) 0.0 x10^3/uL (0.0-0.7) Basophils # (Auto) 0.1 x10^3/uL (0.0-0.2) Sodium Level 135 mmol/L (136-145) Potassium Level 4.6 mmol/L (3.5-5.1) Chloride Level 101 mmol/L (98-107) Carbon Dioxide Level 31 mmol/L (21-32) Anion Gap 3 (6-14) Blood Urea Nitrogen 17 mg/dL (7-20) Creatinine 0.6 mg/dL (0.6-1.0) Estimated GFR (Cockcroft-Gault) 108.6 Glucose Level 159 mg/dL (70-99) Calcium Level 8.4 mg/dL (8.5-10.1) O2 Saturation 97 % (92-99) Arterial Blood pH 7.41 (7.35-7.45) Arterial Blood pCO2 at Patient Temp 43 mmHg (35-46) Arterial Blood pO2 at Patient Temp 101 mmHg (75-108) Arterial Blood HCO3 27 mmol/L (21-28) Arterial Blood Base Excess 2 mmol/L (-3-3) FiO2 80 Objective Assessment COVID 19 infection -Status post plasma and Remdesivir treatment, 01/22 -CRP 163 ( 101) Pneumonia from COVID-19. Treated Acute hypoxic resp failure from above requiring intubation/ventilation Fever. Improved Obesity. Hypertension. Hypernatremia Plan Plan of Care Completed Plasma and Remsidivir, azithromycin and Rocephin Steroids Probiotics Maintain aspiration precautions Awaiting neuro eval Critically ill Pupils better. Attending Co-Sign Attending Co-Sign The patient was seen and interviewed as well as examined at the bedside. The chart was reviewed. The case was discussed. Agree with the plan of care. ALVIN GODOY APRN Jan 31, 2020 09:00 GRISEL JONES MD Jan 31, 2020 14:41
--- NOTE | 2020-01-31 16:31 | PDOC ---
PROGRESS NOTES Chief Complaint Chief Complaint Assessment/Plan ASSESSMENT Acute Hypoxic Respiratory Failure Secondary to COVID-PNA multifocal pulmonary infiltrates.// follow-up to resolution. super Morbid Obesity HTN NORMOCYTIC ANEMIA severe protein-caloric malnutrition PLAN - CONT ICU given hypoxic resp failure - dexamethasone 6 mg IV daily - finished zithromax , continue Rocephin - ID consult for plasma and remdesevir // completed - pulm consult given hypoxia - dvt ppx: lovenox 40 MG BID - GI ppx: pepcid FULL CODE VENT ICU -Status post plasma and Remdesivir treatment -CRP 163 LOS greater than 2 midnights given resp failure, COVID PNA 35 MIN CC TIME The patient was evaluated during the global COVID-19 pandemic, and that diagnosis was suspected/considered upon their initial presentation. Their evaluation, treatment and testing was consistent with current guidelines for patients who present with complaints or symptoms that may be related to COVID- 19. VTE Prophylaxis Ordered VTE Prophylaxis Devices: Yes VTE Pharmacological Prophylaxi: Yes History of Present Illness History of Present Illness 01/30, abotu the same, still on vent, cont current, wean as able COVID-19 CRITERIA: The patient was evaluated during the global COVID-19 pandemic, and that diagnosis was suspected/considered upon their initial presentation. Their evaluation, treatment and testing was consistent with current guidelines for patients who present with complaints or symptoms that may be related to COVID-19. Justicifation of Admission Dx: Justicifation of Admission Dx: Justifications for Admission: Justification of Admission Dx: Yes Respiratory Failure: Severe Resp Distress Vitals Vitals Vital Signs Date Time Temp Pulse Resp B/P (MAP) Pulse Ox O2 Delivery O2 Flow Rate FiO2 01/31/20 15:31 97 Ventilator 01/31/20 15:00 41 24 116/57 (76) 01/31/20 12:00 98.8 98.8 Physical Exam Physical Exam GENERAL: Orally intubated, on ventilator, eyes are open, + mitts in NAD HEENT: Both pupils are round and reacting, + visual threat. No tracking. No conjunctival lesion, ETT, OGT NECK: Supple LUNGS: Diminished aeration bases HEART: S1, S2 regular, will 502 ABDOMEN: Obese, soft, + BS, no guarding : Vasquez EXTREMITIES: Generalized edema. SKIN: warm to touch. No signs of infection NEUROLOGIC: Unresponsive to verbal stimuli Right-sided CVC without signs of infection General: Other Heart: Regular rate Abdomen: Other Extremities: No cyanosis Skin: No breakdown Labs LABS Laboratory Tests Test 01/30/20 18:15 01/31/20 00:36 01/31/20 05:45 01/31/20 08:45 D-Dimer (Shirley) 3.00 ug/mlFEU (0.00-0.50) Glucose (Fingerstick) 165 mg/dL (70-99) White Blood Count 13.0 x10^3/uL (4.0-11.0) Red Blood Count 3.85 x10^6/uL (3.50-5.40) Hemoglobin 10.7 g/dL (12.0-15.5) Hematocrit 32.4 % (36.0-47.0) Mean Corpuscular Volume 84 fL (79-100) Mean Corpuscular Hemoglobin 28 pg (25-35) Mean Corpuscular Hemoglobin Concent 33 g/dL (31-37) Red Cell Distribution Width 15.8 % (11.5-14.5) Platelet Count 325 x10^3/uL (140-400) Neutrophils (%) (Auto) 92 % (31-73) Lymphocytes (%) (Auto) 3 % (24-48) Monocytes (%) (Auto) 4 % (0-9) Eosinophils (%) (Auto) 0 % (0-3) Basophils (%) (Auto) 0 % (0-3) Neutrophils # (Auto) 11.9 x10^3/uL (1.8-7.7) Lymphocytes # (Auto) 0.4 x10^3/uL (1.0-4.8) Monocytes # (Auto) 0.6 x10^3/uL (0.0-1.1) Eosinophils # (Auto) 0.0 x10^3/uL (0.0-0.7) Basophils # (Auto) 0.1 x10^3/uL (0.0-0.2) Sodium Level 135 mmol/L (136-145) Potassium Level 4.6 mmol/L (3.5-5.1) Chloride Level 101 mmol/L (98-107) Carbon Dioxide Level 31 mmol/L (21-32) Anion Gap 3 (6-14) Blood Urea Nitrogen 17 mg/dL (7-20) Creatinine 0.6 mg/dL (0.6-1.0) Estimated GFR (Cockcroft-Gault) 108.6 Glucose Level 159 mg/dL (70-99) Calcium Level 8.4 mg/dL (8.5-10.1) O2 Saturation 97 % (92-99) Arterial Blood pH 7.41 (7.35-7.45) Arterial Blood pCO2 at Patient Temp 43 mmHg (35-46) Arterial Blood pO2 at Patient Temp 101 mmHg (75-108) Arterial Blood HCO3 27 mmol/L (21-28) Arterial Blood Base Excess 2 mmol/L (-3-3) FiO2 80 Test 01/31/20 14:00 Heparin Anti-Xa Act, Unfractionated > 1.10 IU/mL (0.30-0.70) Assessment and Plan Assessmemt and Plan Problems Medical Problems: (1) Pneumonia due to COVID-19 virus Status: Acute Comment Review of Relevant I have reviewed the following items stephon (where applicable) has been applied. Labs Laboratory Tests Test 01/30/20 00:27 01/30/20 06:00 01/30/20 08:00 01/30/20 18:15 Glucose (Fingerstick) 86 mg/dL (70-99) White Blood Count 13.7 x10^3/uL (4.0-11.0) Red Blood Count 3.99 x10^6/uL (3.50-5.40) Hemoglobin 11.2 g/dL (12.0-15.5) Hematocrit 33.3 % (36.0-47.0) Mean Corpuscular Volume 83 fL (79-100) Mean Corpuscular Hemoglobin 28 pg (25-35) Mean Corpuscular Hemoglobin Concent 34 g/dL (31-37) Red Cell Distribution Width 15.8 % (11.5-14.5) Platelet Count 355 x10^3/uL (140-400) Neutrophils (%) (Auto) 90 % (31-73) Lymphocytes (%) (Auto) 5 % (24-48) Monocytes (%) (Auto) 4 % (0-9) Eosinophils (%) (Auto) 1 % (0-3) Basophils (%) (Auto) 0 % (0-3) Neutrophils # (Auto) 12.4 x10^3/uL (1.8-7.7) Lymphocytes # (Auto) 0.6 x10^3/uL (1.0-4.8) Monocytes # (Auto) 0.5 x10^3/uL (0.0-1.1) Eosinophils # (Auto) 0.2 x10^3/uL (0.0-0.7) Basophils # (Auto) 0.0 x10^3/uL (0.0-0.2) Sodium Level 133 mmol/L (136-145) Potassium Level 3.9 mmol/L (3.5-5.1) Chloride Level 97 mmol/L (98-107) Carbon Dioxide Level 30 mmol/L (21-32) Anion Gap 6 (6-14) Blood Urea Nitrogen 18 mg/dL (7-20) Creatinine 0.7 mg/dL (0.6-1.0) Estimated GFR (Cockcroft-Gault) 90.9 BUN/Creatinine Ratio 26 (6-20) Glucose Level 114 mg/dL (70-99) Calcium Level 7.8 mg/dL (8.5-10.1) Total Bilirubin 0.6 mg/dL (0.2-1.0) Aspartate Amino Transf (AST/SGOT) 56 U/L (15-37) Alanine Aminotransferase (ALT/SGPT) 44 U/L (14-59) Alkaline Phosphatase 88 U/L (46-116) Total Protein 5.6 g/dL (6.4-8.2) Albumin 1.9 g/dL (3.4-5.0) Albumin/Globulin Ratio 0.5 (1.0-1.7) O2 Saturation 93 % (92-99) Arterial Blood pH 7.48 (7.35-7.45) Arterial Blood pCO2 at Patient Temp 36 mmHg (35-46) Arterial Blood pO2 at Patient Temp 70 mmHg (75-108) Arterial Blood HCO3 26 mmol/L (21-28) Arterial Blood Base Excess 2 mmol/L (-3-3) FiO2 80 D-Dimer (Shirley) 3.00 ug/mlFEU (0.00-0.50) Test 01/31/20 00:36 01/31/20 05:45 01/31/20 08:45 01/31/20 14:00 Glucose (Fingerstick) 165 mg/dL (70-99) White Blood Count 13.0 x10^3/uL (4.0-11.0) Red Blood Count 3.85 x10^6/uL (3.50-5.40) Hemoglobin 10.7 g/dL (12.0-15.5) Hematocrit 32.4 % (36.0-47.0) Mean Corpuscular Volume 84 fL (79-100) Mean Corpuscular Hemoglobin 28 pg (25-35) Mean Corpuscular Hemoglobin Concent 33 g/dL (31-37) Red Cell Distribution Width 15.8 % (11.5-14.5) Platelet Count 325 x10^3/uL (140-400) Neutrophils (%) (Auto) 92 % (31-73) Lymphocytes (%) (Auto) 3 % (24-48) Monocytes (%) (Auto) 4 % (0-9) Eosinophils (%) (Auto) 0 % (0-3) Basophils (%) (Auto) 0 % (0-3) Neutrophils # (Auto) 11.9 x10^3/uL (1.8-7.7) Lymphocytes # (Auto) 0.4 x10^3/uL (1.0-4.8) Monocytes # (Auto) 0.6 x10^3/uL (0.0-1.1) Eosinophils # (Auto) 0.0 x10^3/uL (0.0-0.7) Basophils # (Auto) 0.1 x10^3/uL (0.0-0.2) Sodium Level 135 mmol/L (136-145) Potassium Level 4.6 mmol/L (3.5-5.1) Chloride Level 101 mmol/L (98-107) Carbon Dioxide Level 31 mmol/L (21-32) Anion Gap 3 (6-14) Blood Urea Nitrogen 17 mg/dL (7-20) Creatinine 0.6 mg/dL (0.6-1.0) Estimated GFR (Cockcroft-Gault) 108.6 Glucose Level 159 mg/dL (70-99) Calcium Level 8.4 mg/dL (8.5-10.1) O2 Saturation 97 % (92-99) Arterial Blood pH 7.41 (7.35-7.45) Arterial Blood pCO2 at Patient Temp 43 mmHg (35-46) Arterial Blood pO2 at Patient Temp 101 mmHg (75-108) Arterial Blood HCO3 27 mmol/L (21-28) Arterial Blood Base Excess 2 mmol/L (-3-3) FiO2 80 Heparin Anti-Xa Act, Unfractionated > 1.10 IU/mL (0.30-0.70) Laboratory Tests Test 01/30/20 18:15 01/31/20 00:36 01/31/20 05:45 01/31/20 08:45 D-Dimer (Shirley) 3.00 ug/mlFEU (0.00-0.50) Glucose (Fingerstick) 165 mg/dL (70-99) White Blood Count 13.0 x10^3/uL (4.0-11.0) Red Blood Count 3.85 x10^6/uL (3.50-5.40) Hemoglobin 10.7 g/dL (12.0-15.5) Hematocrit 32.4 % (36.0-47.0) Mean Corpuscular Volume 84 fL (79-100) Mean Corpuscular Hemoglobin 28 pg (25-35) Mean Corpuscular Hemoglobin Concent 33 g/dL (31-37) Red Cell Distribution Width 15.8 % (11.5-14.5) Platelet Count 325 x10^3/uL (140-400) Neutrophils (%) (Auto) 92 % (31-73) Lymphocytes (%) (Auto) 3 % (24-48) Monocytes (%) (Auto) 4 % (0-9) Eosinophils (%) (Auto) 0 % (0-3) Basophils (%) (Auto) 0 % (0-3) Neutrophils # (Auto) 11.9 x10^3/uL (1.8-7.7) Lymphocytes # (Auto) 0.4 x10^3/uL (1.0-4.8) Monocytes # (Auto) 0.6 x10^3/uL (0.0-1.1) Eosinophils # (Auto) 0.0 x10^3/uL (0.0-0.7) Basophils # (Auto) 0.1 x10^3/uL (0.0-0.2) Sodium Level 135 mmol/L (136-145) Potassium Level 4.6 mmol/L (3.5-5.1) Chloride Level 101 mmol/L (98-107) Carbon Dioxide Level 31 mmol/L (21-32) Anion Gap 3 (6-14) Blood Urea Nitrogen 17 mg/dL (7-20) Creatinine 0.6 mg/dL (0.6-1.0) Estimated GFR (Cockcroft-Gault) 108.6 Glucose Level 159 mg/dL (70-99) Calcium Level 8.4 mg/dL (8.5-10.1) O2 Saturation 97 % (92-99) Arterial Blood pH 7.41 (7.35-7.45) Arterial Blood pCO2 at Patient Temp 43 mmHg (35-46) Arterial Blood pO2 at Patient Temp 101 mmHg (75-108) Arterial Blood HCO3 27 mmol/L (21-28) Arterial Blood Base Excess 2 mmol/L (-3-3) FiO2 80 Test 01/31/20 14:00 Heparin Anti-Xa Act, Unfractionated > 1.10 IU/mL (0.30-0.70) Medications Current Medications Acetaminophen (Tylenol) 1,000 mg 1X ONCE PO Last administered on 01/21/20at 17:00; Start 01/21/20 at 17:00; Stop 01/21/20 at 17:01; Status DC Ondansetron HCl (Zofran) 4 mg PRN Q8HRS PRN IV NAUSEA/VOMITING; Start 01/21/20 at 18:00; Stop 01/22/20 at 07:55; Status DC Dexamethasone Sodium Phosphate (Decadron) 6 mg 1X ONCE IVP Last administered on 01/21/20at 18:14; Start 01/21/20 at 18:00; Stop 01/21/20 at 18:01; Status DC Ceftriaxone Sodium (Rocephin) 1 gm 1X ONCE IVP Last administered on 01/21/20at 18:14; Start 01/21/20 at 18:00; Stop 01/21/20 at 18:01; Status DC Azithromycin 500 mg/Sodium Chloride 250 ml @ 250 mls/hr Q24H IV Last administered on 01/25/20at 19:00; Start 01/22/20 at 19:00; Stop 01/26/20 at 09:05; Status DC Azithromycin 250 ml @ 250 mls/hr 1X ONCE IV Last administered on 01/21/20at 18:25; Start 01/21/20 at 18:15; Stop 01/21/20 at 19:14; Status DC Dexamethasone Sodium Phosphate (Decadron) 6 mg DAILY IVP Last administered on 01/31/20 08:21; Start 01/22/20 at 09:00 Ceftriaxone Sodium (Rocephin) 1 gm Q24H IVP Last administered on 01/29/20at 20:14; Start 01/22/20 at 20:00; Stop 01/30/20 at 16:07; Status DC Azithromycin 250 ml @ 250 mls/hr 1X ONCE IV ; Start 01/21/20 at 19:45; Stop 01/21/20 at 20:44; Status UNV Acetaminophen (Tylenol) 650 mg PRN Q6HRS PRN PO Headaches, Temp > 101.5' Last administered on 01/25/20at 20:45; Start 01/21/20 at 19:45 Ondansetron HCl (Zofran) 4 mg PRN Q6HRS PRN IVP NAUSEA/VOMITING; Start 01/21/20 at 19:45 Al Hydroxide/Mg Hydroxide (Mylanta Plus Xs) 30 ml PRN Q3HRS PRN PO HEARTBURN / GAS; Start 01/21/20 at 19:45 Famotidine (Pepcid) 20 mg BID PO Last administered on 01/31/20at 08:20; Start 01/21/20 at 21:00 Enoxaparin Sodium (Lovenox 40mg Syringe) 40 mg Q24H SQ Last administered on 01/21/20at 21:07; Start 01/21/20 at 20:00; Stop 01/22/20 at 10:45; Status DC Sodium Chloride (Normal Saline Flush) 3 ml QSHIFT PRN IV AFTER MEDS AND BLOOD DRAWS; Start 01/21/20 at 19:45 Senna/Docusate Sodium (Senna Plus) 1 tab BID PO Last administered on 01/31/20 08:21; Start 01/21/20 at 21:00 Magnesium Hydroxide (Milk Of Magnesia) 2,400 mg PRN Q12HR PRN PO CONSTIPATION; Start 01/21/20 at 19:45 Sterile Water (WATER for RESP) 1,000 ml CONT PRN INH VIA VAPOTHERM DEVICE Last administered on 01/23/20at 12:46; Start 01/22/20 at 04:30 Lactobacillus Rhamnosus (Culturelle) 1 cap BID PO Last administered on 01/31/20at 08:20; Start 01/22/20 at 09:00 Non-Formulary Medication 1 ea/ Sodium Chloride 210 ml @ 420 mls/hr ONCE ONCE IV Last administered on 01/22/20at 10:44; Start 01/22/20 at 11:00; Stop 01/22/20 at 11:29; Status DC Non-Formulary Medication 1 ea/ Sodium Chloride 230 ml @ 460 mls/hr DAILY IV Last administered on 01/26/20at 09:58; Start 01/23/20 at 09:00; Stop 01/26/20 at 09:29; Status DC Enoxaparin Sodium (Lovenox 40mg Syringe) 40 mg BID SQ Last administered on 01/30/20at 20:39; Start 01/22/20 at 11:00; Stop 01/30/20 at 20:57; Status DC Lorazepam (Ativan Inj) 0.5 mg PRN Q4HRS PRN IVP ANXIETY / AGITATION; Start 01/23/20 at 21:00 Lorazepam (Ativan Inj) 0.05 mg 1X ONCE IVP Last administered on 01/23/20at 21:13; Start 01/23/20 at 21:15; Stop 01/23/20 at 21:31; Status DC Fentanyl Citrate 30 ml @ 0 mls/hr CONT PRN IV SEE PROTOCOL Last administered on 01/31/20at 14:41; Start 01/23/20 at 22:45 Propofol 100 ml @ 0 mls/hr CONT PRN IV SEE PROTOCOL; Start 01/23/20 at 22:45 Midazolam HCl 100 ml @ 0 mls/hr CONT PRN IV SEE PROTOCOL Last administered on 01/31/20at 07:34; Start 01/23/20 at 22:45 Vecuronium Kemp (Norcuron Bolus) 10 mg STK-MED ONCE IV ; Start 01/23/20 at 23:24; Stop 01/23/20 at 23:25; Status DC Vecuronium Kemp (Norcuron Bolus) 60 mg 1X ONCE IV Last administered on 01/23/20at 23:30; Start 01/23/20 at 23:30; Stop 01/23/20 at 23:35; Status DC Norepinephrine Bitartrate 8 mg/ Dextrose 258 ml @ 20.666 mls/ hr CONT PRN IV PER PROTOCOL Last administered on 01/24/20at 12:28; Start 01/24/20 at 02:15 Vecuronium Kemp (Norcuron Bolus) 6 mg PRN Q4HRS PRN IV SEDATION Last administered on 01/24/20at 15:40; Start 01/24/20 at 04:30 Succinylcholine Chloride (Anectine) 200 mg STK-MED ONCE .ROUTE ; Start 01/23/20 at 23:00; Stop 01/24/20 at 08:24; Status DC Etomidate (Amidate) 20 mg STK-MED ONCE IV ; Start 01/23/20 at 23:00; Stop 01/24/20 at 08:24; Status DC Ringer's Solution 1,000 ml @ 75 mls/hr [id number] IV Last administered on 01/25/20at 16:21; Start 01/24/20 at 12:30; Stop 01/26/20 at 09:17; Status DC Hydralazine HCl (Apresoline Inj) 10 mg PRN Q4HRS PRN IVP ELEVATED BP, SEE COMMENTS; Start 01/28/20 at 14:00 Heparin Sodium/ Dextrose 250 ml @ 17.6 mls/hr CONT PRN IV PER PROTOCOL Last administered on 01/31/20at 08:41; Start 01/30/20 at 21:00 Heparin Sodium (Porcine) (Heparin Sodium) 3,300 unit PRN Q6HRS PRN IV FOR UFH LEVEL LESS THAN 0.2; Start 01/30/20 at 21:00 Heparin Sodium (Porcine) (Heparin Sodium) 1,650 unit PRN Q6HRS PRN IV FOR UFH LEVEL 0.2 - 0.29; Start 01/30/20 at 21:00 Heparin Sodium (Porcine) (Heparin Sodium) 8,700 unit 1X ONCE IV Last administered on 01/31/20at 08:20; Start 01/31/20 at 07:15; Stop 01/31/20 at 07:16; Status DC Active Scripts Active Keflex (Cephalexin) 500 Mg Capsule 500 Mg PO QID 10 Days Sigurd 5-325 Tablet (Acetaminophen/Hydrocodone Bitart) 1 Each Tablet 1 Tab PO PRN Q6HRS PRN Vitals/I & O Vital Sign - Last 24 Hours 01/30/20 01/30/20 01/30/20 01/30/20 17:00 17:23 17:28 18:00 Pulse 47 46 Resp 24 18 24 B/P (MAP) 123/68 (86) 99/68 (78) Pulse Ox 98 98 98 97 O2 Delivery Ventilator Ventilator Ventilator Ventilator 01/30/20 01/30/20 01/30/20 01/30/20 19:00 19:17 20:00 20:00 Temp 98.6 98.6 Pulse 46 46 Resp 24 26 24 B/P (MAP) 105/48 (67) 118/61 (80) Pulse Ox 97 97 97 O2 Delivery Ventilator Ventilator Mechanical Ventilator Ventilator 01/30/20 01/30/20 01/30/20 01/30/20 20:31 21:00 22:00 23:00 Pulse 60 48 48 Resp 24 24 24 B/P (MAP) 130/69 (89) 151/80 (103) 109/53 (71) Pulse Ox 98 98 98 99 O2 Delivery Ventilator Ventilator Ventilator Ventilator 01/31/20 01/31/20 01/31/20 01/31/20 00:00 00:01 00:36 00:47 Temp 97.6 97.6 Pulse 52 Resp 24 24 B/P (MAP) 124/64 (84) Pulse Ox 99 98 98 O2 Delivery Mechanical Ventilator Ventilator Ventilator Ventilator 01/31/20 01/31/20 01/31/20 01/31/20 01:00 01:32 02:00 03:00 Pulse 58 46 49 Resp 24 24 24 24 B/P (MAP) 133/74 (93) 123/64 (83) 120/54 (76) Pulse Ox 97 95 98 98 O2 Delivery Ventilator Ventilator Ventilator Ventilator 01/31/20 01/31/20 01/31/20 01/31/20 04:00 04:00 04:51 05:00 Temp 97.8 97.8 Pulse 49 48 Resp 24 24 B/P (MAP) 110/53 (72) 100/41 (60) Pulse Ox 97 99 98 O2 Delivery Mechanical Ventilator Ventilator Ventilator Ventilator 01/31/20 01/31/20 01/31/20 01/31/20 06:00 07:00 07:33 08:00 Pulse 43 42 Resp 24 24 B/P (MAP) 114/56 (75) 109/55 (73) Pulse Ox 98 98 O2 Delivery Ventilator Ventilator Ventilator Mechanical Ventilator 01/31/20 01/31/20 01/31/20 01/31/20 08:00 08:42 09:00 10:00 Temp 98.3 98.3 Pulse 43 63 69 Resp 24 24 24 B/P (MAP) 110/53 (72) 117/61 (79) 132/82 (99) Pulse Ox 99 99 94 92 O2 Delivery Ventilator Ventilator Ventilator Ventilator 01/31/20 01/31/20 01/31/20 01/31/20 10:52 11:00 12:00 12:00 Temp 98.8 98.8 Pulse 48 61 Resp 24 24 B/P (MAP) 133/61 (85) 147/84 (105) Pulse Ox 93 96 94 O2 Delivery Ventilator Ventilator Mechanical Ventilator Ventilator 01/31/20 01/31/20 01/31/20 01/31/20 13:00 14:00 14:41 15:00 Pulse 46 48 41 Resp 24 24 24 B/P (MAP) 129/65 (86) 115/58 (77) 116/57 (76) Pulse Ox 96 94 98 O2 Delivery Ventilator Ventilator Ventilator Ventilator 01/31/20 15:31 Pulse Ox 97 O2 Delivery Ventilator Intake and Output 01/30/20 01/30/20 01/31/20 15:00 23:00 07:00 Intake Total 300 ml 1206 ml 1167 ml Output Total 1385 ml 1025 ml 800 ml Balance -1085 ml 181 ml 367 ml Justicifation of Admission Dx: Justifications for Admission: Justification of Admission Dx: Yes Respiratory Failure: Severe Resp Distress ILIA GALVAN MD Jan 31, 2020 16:31
[2020-02-01] VITALS (23 sets, daily range): BP systolic 92–163; BP diastolic 42–89
[2020-02-01] MEDS: HEPARIN 25,000UTS/250ML PREMIX 250 ML IV PRN ×2 (03:04→22:29)
[2020-02-01 04:30] LABS: HEMATOCRIT 33.5 % (36.0-47.0); HEMOGLOBIN 11.1 g/dL (12.0-15.5); RED BLOOD COUNT 3.96 x10^6/uL (3.50-5.40); WHITE BLOOD COUNT 12.7 x10^3/uL (4.0-11.0)
[2020-02-01] MEDS: MIDAZOLAM 100mg/100ml NS BAG 100 ML IV PRN ×2 (05:57→16:41)
[2020-02-01] MEDS: HEPARIN for IV BOLUS 10,000 UNIT/10 ML VIAL. IV PRN (07:10)
--- NOTE | 2020-02-01 07:52 | PDOC ---
PULMONARY PROGRESS NOTES Subjective intubated 01/24/20 Assist-control ventilation, sedated, on PEEP of 12 and Fi02 70% Vitals Vital Signs Date Time Temp Pulse Resp B/P (MAP) Pulse Ox O2 Delivery O2 Flow Rate FiO2 02/01/20 05:00 44 11 163/86 (111) 98 Ventilator 02/01/20 04:00 98.0 98.0 Comments ros unable to obtain sedated on vent Visual exam performed due to COVID-19 pandemic Patient appears to be comfortable in sync with the ventilator, no significant Labs Laboratory Tests Test 01/30/20 08:00 01/30/20 18:15 01/31/20 00:36 01/31/20 05:45 O2 Saturation 93 % (92-99) Arterial Blood pH 7.48 (7.35-7.45) Arterial Blood pCO2 at Patient Temp 36 mmHg (35-46) Arterial Blood pO2 at Patient Temp 70 mmHg (75-108) Arterial Blood HCO3 26 mmol/L (21-28) Arterial Blood Base Excess 2 mmol/L (-3-3) FiO2 80 D-Dimer (Shirley) 3.00 ug/mlFEU (0.00-0.50) Glucose (Fingerstick) 165 mg/dL (70-99) White Blood Count 13.0 x10^3/uL (4.0-11.0) Red Blood Count 3.85 x10^6/uL (3.50-5.40) Hemoglobin 10.7 g/dL (12.0-15.5) Hematocrit 32.4 % (36.0-47.0) Mean Corpuscular Volume 84 fL (79-100) Mean Corpuscular Hemoglobin 28 pg (25-35) Mean Corpuscular Hemoglobin Concent 33 g/dL (31-37) Red Cell Distribution Width 15.8 % (11.5-14.5) Platelet Count 325 x10^3/uL (140-400) Neutrophils (%) (Auto) 92 % (31-73) Lymphocytes (%) (Auto) 3 % (24-48) Monocytes (%) (Auto) 4 % (0-9) Eosinophils (%) (Auto) 0 % (0-3) Basophils (%) (Auto) 0 % (0-3) Neutrophils # (Auto) 11.9 x10^3/uL (1.8-7.7) Lymphocytes # (Auto) 0.4 x10^3/uL (1.0-4.8) Monocytes # (Auto) 0.6 x10^3/uL (0.0-1.1) Eosinophils # (Auto) 0.0 x10^3/uL (0.0-0.7) Basophils # (Auto) 0.1 x10^3/uL (0.0-0.2) Sodium Level 135 mmol/L (136-145) Potassium Level 4.6 mmol/L (3.5-5.1) Chloride Level 101 mmol/L (98-107) Carbon Dioxide Level 31 mmol/L (21-32) Anion Gap 3 (6-14) Blood Urea Nitrogen 17 mg/dL (7-20) Creatinine 0.6 mg/dL (0.6-1.0) Estimated GFR (Cockcroft-Gault) 108.6 Glucose Level 159 mg/dL (70-99) Calcium Level 8.4 mg/dL (8.5-10.1) Test 01/31/20 08:45 01/31/20 14:00 01/31/20 21:34 02/01/20 03:35 O2 Saturation 97 % (92-99) Arterial Blood pH 7.41 (7.35-7.45) Arterial Blood pCO2 at Patient Temp 43 mmHg (35-46) Arterial Blood pO2 at Patient Temp 101 mmHg (75-108) Arterial Blood HCO3 27 mmol/L (21-28) Arterial Blood Base Excess 2 mmol/L (-3-3) FiO2 80 Heparin Anti-Xa Act, Unfractionated > 1.10 IU/mL (0.30-0.70) 0.49 IU/mL (0.30-0.70) 0.25 IU/mL (0.30-0.70) White Blood Count 12.7 x10^3/uL (4.0-11.0) Red Blood Count 3.96 x10^6/uL (3.50-5.40) Hemoglobin 11.1 g/dL (12.0-15.5) Hematocrit 33.5 % (36.0-47.0) Mean Corpuscular Volume 85 fL (79-100) Mean Corpuscular Hemoglobin 28 pg (25-35) Mean Corpuscular Hemoglobin Concent 33 g/dL (31-37) Red Cell Distribution Width 16.0 % (11.5-14.5) Platelet Count 343 x10^3/uL (140-400) Laboratory Tests Test 01/31/20 08:45 01/31/20 14:00 01/31/20 21:34 02/01/20 03:35 O2 Saturation 97 % (92-99) Arterial Blood pH 7.41 (7.35-7.45) Arterial Blood pCO2 at Patient Temp 43 mmHg (35-46) Arterial Blood pO2 at Patient Temp 101 mmHg (75-108) Arterial Blood HCO3 27 mmol/L (21-28) Arterial Blood Base Excess 2 mmol/L (-3-3) FiO2 80 Heparin Anti-Xa Act, Unfractionated > 1.10 IU/mL (0.30-0.70) 0.49 IU/mL (0.30-0.70) 0.25 IU/mL (0.30-0.70) White Blood Count 12.7 x10^3/uL (4.0-11.0) Red Blood Count 3.96 x10^6/uL (3.50-5.40) Hemoglobin 11.1 g/dL (12.0-15.5) Hematocrit 33.5 % (36.0-47.0) Mean Corpuscular Volume 85 fL (79-100) Mean Corpuscular Hemoglobin 28 pg (25-35) Mean Corpuscular Hemoglobin Concent 33 g/dL (31-37) Red Cell Distribution Width 16.0 % (11.5-14.5) Platelet Count 343 x10^3/uL (140-400) Medications Active Scripts Medications Dose Route/Sig Max Daily Dose Days Date Category Keflex (Cephalexin) 500 Mg Capsule 500 Mg PO QID 10 06/20/18 Rx Tinnie 5-325 Tablet (Acetaminophen/Hydrocodone Bitart) 1 Each Tablet 1 Tab PO PRN Q6HRS PRN 06/20/18 Rx Comments CXR IMPRESSION: 1. Widespread airspace disease, not significantly changed. 2. Stable position of tubes and lines. Impression . IMPRESSION: 1. Acute hypoxic respiratory failure secondary to COVID-19 pneumonia and sepsis. intubated 01/24/20 2. Abnormal chest x-ray with bilateral patchy infiltrates compatible with COVID-19 pneumonia. COVID-19 + 3. Underlying obesity. 4. Hypertension 5. Hypotension- improved 6, COVID-19 sepsis 7. Presumptive thromboembolic disease related to COVID-19 Plan . Continue current ventilatory support at an FiO2 of 70% and a PEEP of 12, will review ABG and chest x-ray and make changes as appropriate Cont. heparin for presumptive thromboembolic disease Antibiotics per ID--rocephin and azithromycin Status post convalescent serum 01/22 Continue steroids Continue tube feeding for nutritional support GI/DVT prophylaxis Discussed with RN and RT Total cumulative critical care time of 30 minutes reviewing data, labs, chest x- ray, and formulating a plan CODE: FULL DVT/GI PPX: lovenox/pepcid LEIF COBB MD Feb 01, 2020 07:52
[2020-02-01 08:20] LABS: BASE EXCESS ABG 4 mmol/L (-3-3); HCO3 ABG 29 mmol/L (21-28); PCO2 ABG 45 mmHg (35-46); PO2 ABG 74 mmHg (75-108); SAT O2 ABG 93 % (92-99)
[2020-02-01 08:25] LABS: FIO2 ABG 70
[2020-02-01] MEDS: DEXAMETHASONE SOD PHOS 4 MG/ML VIAL IVP SCH (09:22)
[2020-02-01] MEDS: SENNOSIDES/DOCUSATE 8.6/50MG TABLET. PO SCH ×2 (09:22→21:00)
[2020-02-01] MEDS: LACTOBACILLUS RHAMNOSUS GG 1 CAPSULE. PO SCH ×2 (09:22→21:00)
[2020-02-01] MEDS: FAMOTIDINE 20 MG TABLET. PO SCH ×2 (09:22→21:00)
--- NOTE | 2020-02-01 09:49 | PDOC ---
Infectious Disease Note Subjective Subjective Sedated Remains orally intubated, FiO2 down to 70% PEEP 12 No fevers last 72 hrs Tube feedings 50 ml/hr ROS ROS unable to obtain due to patient's condition Vital Sign Vital Signs Vital Signs Date Time Temp Pulse Resp B/P (MAP) Pulse Ox O2 Delivery O2 Flow Rate FiO2 02/01/20 07:59 100 Ventilator 02/01/20 06:00 54 25 158/89 (112) 02/01/20 04:00 98.0 98.0 Physical Exam PHYSICAL EXAM GENERAL: Orally intubated, on ventilator, eyes are open, + mitts in NAD HEENT: Pupils equal, disconjucated gaze, No conjunctival lesion, ETT, OGT NECK: Supple LUNGS: Diminished aeration bases HEART: S1, S2 regular, will 50s ABDOMEN: Obese, soft, + BS, no guarding : Vasquez EXTREMITIES: Generalized edema. SCDs, bilaterally SKIN: warm to touch. No signs of infection NEUROLOGIC: Unresponsive/sedated Right-sided CVC without signs of infection Labs Lab Laboratory Tests Test 01/31/20 14:00 01/31/20 21:34 02/01/20 03:35 02/01/20 08:00 Heparin Anti-Xa Act, Unfractionated > 1.10 IU/mL (0.30-0.70) 0.49 IU/mL (0.30-0.70) 0.25 IU/mL (0.30-0.70) White Blood Count 12.7 x10^3/uL (4.0-11.0) Red Blood Count 3.96 x10^6/uL (3.50-5.40) Hemoglobin 11.1 g/dL (12.0-15.5) Hematocrit 33.5 % (36.0-47.0) Mean Corpuscular Volume 85 fL (79-100) Mean Corpuscular Hemoglobin 28 pg (25-35) Mean Corpuscular Hemoglobin Concent 33 g/dL (31-37) Red Cell Distribution Width 16.0 % (11.5-14.5) Platelet Count 343 x10^3/uL (140-400) O2 Saturation 93 % (92-99) Arterial Blood pH 7.43 (7.35-7.45) Arterial Blood pCO2 at Patient Temp 45 mmHg (35-46) Arterial Blood pO2 at Patient Temp 74 mmHg (75-108) Arterial Blood HCO3 29 mmol/L (21-28) Arterial Blood Base Excess 4 mmol/L (-3-3) FiO2 70 Objective Assessment COVID 19 infection -Status post plasma and Remdesivir treatment, 01/22 -CRP 163 ( 101) Pneumonia from COVID-19. Treated Acute hypoxic resp failure from above requiring intubation/ventilation Fever. Improved Obesity. Hypertension. Hypernatremia Plan Plan of Care Completed Plasma and Remsidivir, azithromycin and Rocephin Maintain aspiration precautions D/w nursing Critically ill ID sign off. Patient discussed with E LEARNING COORDINATOR. Chart reviewed in detail. Above plan co-formulated and agreed upon with E LEARNING COORDINATOR on 02/01/2020. ALVIN GODOY APRN Feb 01, 2020 09:49 OFELIA CONTRERAS MD Feb 02, 2020 19:40
--- NOTE | 2020-02-01 13:32 | PDOC ---
PROGRESS NOTES Chief Complaint Chief Complaint Acute Hypoxic Respiratory Failure Secondary to COVID-19 and sepsis pneumonia multifocal pulmonary infiltrates.// follow-up to resolution. Morbid Obesity, BMI 44 HTN NORMOCYTIC ANEMIA severe protein-caloric malnutrition v 35 MIN CC TIME The patient was evaluated during the global COVID-19 pandemic, and that diagnosis was suspected/considered upon their initial presentation. Their evaluation, treatment and testing was consistent with current guidelines for patients who present with complaints or symptoms that may be related to COVID- 19. History of Present Illness History of Present Illness 01/31, very awake ealier on 10 versed, and IV fent doing well on vent, discussed with RT, going down no Fi02 to 65% wean as able, PULM following cont the steriods and plan above, abx c COVID-19 CRITERIA: The patient was evaluated during the global COVID-19 pandemic, and that diagnosis was suspected/considered upon their initial presentation. Their evaluation, treatment and testing was consistent with current guidelines for patients who present with complaints or symptoms that may be related to COVID-19. Vitals Vitals Vital Signs Date Time Temp Pulse Resp B/P (MAP) Pulse Ox O2 Delivery O2 Flow Rate FiO2 02/01/20 13:07 Ventilator 02/01/20 12:00 43 24 93/47 (62) 98 02/01/20 07:00 97.7 97.7 Physical Exam Physical Exam GENERAL: Orally intubated, on ventilator, eyes are open, + mitts in NAD HEENT: Pupils equal, disconjucated gaze, No conjunctival lesion, ETT, OGT NECK: Supple LUNGS: Diminished aeration bases HEART: S1, S2 regular, will 50s ABDOMEN: Obese, soft, + BS, no guarding : Vasquez EXTREMITIES: Generalized edema. SCDs, bilaterally SKIN: warm to touch. No signs of infection NEUROLOGIC: Unresponsive/sedated Right-sided CVC without signs of infection General: Other Heart: Regular rate Abdomen: Other Extremities: No cyanosis Skin: No breakdown Labs LABS Laboratory Tests Test 01/31/20 14:00 01/31/20 21:34 02/01/20 03:35 02/01/20 08:00 Heparin Anti-Xa Act, Unfractionated > 1.10 IU/mL (0.30-0.70) 0.49 IU/mL (0.30-0.70) 0.25 IU/mL (0.30-0.70) White Blood Count 12.7 x10^3/uL (4.0-11.0) Red Blood Count 3.96 x10^6/uL (3.50-5.40) Hemoglobin 11.1 g/dL (12.0-15.5) Hematocrit 33.5 % (36.0-47.0) Mean Corpuscular Volume 85 fL (79-100) Mean Corpuscular Hemoglobin 28 pg (25-35) Mean Corpuscular Hemoglobin Concent 33 g/dL (31-37) Red Cell Distribution Width 16.0 % (11.5-14.5) Platelet Count 343 x10^3/uL (140-400) O2 Saturation 93 % (92-99) Arterial Blood pH 7.43 (7.35-7.45) Arterial Blood pCO2 at Patient Temp 45 mmHg (35-46) Arterial Blood pO2 at Patient Temp 74 mmHg (75-108) Arterial Blood HCO3 29 mmol/L (21-28) Arterial Blood Base Excess 4 mmol/L (-3-3) FiO2 70 Assessment and Plan Assessmemt and Plan Problems Medical Problems: (1) Pneumonia due to COVID-19 virus Status: Acute Comment Review of Relevant I have reviewed the following items stephon (where applicable) has been applied. Labs Laboratory Tests Test 01/30/20 18:15 01/31/20 00:36 01/31/20 05:45 01/31/20 08:45 D-Dimer (Shirley) 3.00 ug/mlFEU (0.00-0.50) Glucose (Fingerstick) 165 mg/dL (70-99) White Blood Count 13.0 x10^3/uL (4.0-11.0) Red Blood Count 3.85 x10^6/uL (3.50-5.40) Hemoglobin 10.7 g/dL (12.0-15.5) Hematocrit 32.4 % (36.0-47.0) Mean Corpuscular Volume 84 fL (79-100) Mean Corpuscular Hemoglobin 28 pg (25-35) Mean Corpuscular Hemoglobin Concent 33 g/dL (31-37) Red Cell Distribution Width 15.8 % (11.5-14.5) Platelet Count 325 x10^3/uL (140-400) Neutrophils (%) (Auto) 92 % (31-73) Lymphocytes (%) (Auto) 3 % (24-48) Monocytes (%) (Auto) 4 % (0-9) Eosinophils (%) (Auto) 0 % (0-3) Basophils (%) (Auto) 0 % (0-3) Neutrophils # (Auto) 11.9 x10^3/uL (1.8-7.7) Lymphocytes # (Auto) 0.4 x10^3/uL (1.0-4.8) Monocytes # (Auto) 0.6 x10^3/uL (0.0-1.1) Eosinophils # (Auto) 0.0 x10^3/uL (0.0-0.7) Basophils # (Auto) 0.1 x10^3/uL (0.0-0.2) Sodium Level 135 mmol/L (136-145) Potassium Level 4.6 mmol/L (3.5-5.1) Chloride Level 101 mmol/L (98-107) Carbon Dioxide Level 31 mmol/L (21-32) Anion Gap 3 (6-14) Blood Urea Nitrogen 17 mg/dL (7-20) Creatinine 0.6 mg/dL (0.6-1.0) Estimated GFR (Cockcroft-Gault) 108.6 Glucose Level 159 mg/dL (70-99) Calcium Level 8.4 mg/dL (8.5-10.1) O2 Saturation 97 % (92-99) Arterial Blood pH 7.41 (7.35-7.45) Arterial Blood pCO2 at Patient Temp 43 mmHg (35-46) Arterial Blood pO2 at Patient Temp 101 mmHg (75-108) Arterial Blood HCO3 27 mmol/L (21-28) Arterial Blood Base Excess 2 mmol/L (-3-3) FiO2 80 Test 01/31/20 14:00 01/31/20 21:34 02/01/20 03:35 02/01/20 08:00 Heparin Anti-Xa Act, Unfractionated > 1.10 IU/mL (0.30-0.70) 0.49 IU/mL (0.30-0.70) 0.25 IU/mL (0.30-0.70) White Blood Count 12.7 x10^3/uL (4.0-11.0) Red Blood Count 3.96 x10^6/uL (3.50-5.40) Hemoglobin 11.1 g/dL (12.0-15.5) Hematocrit 33.5 % (36.0-47.0) Mean Corpuscular Volume 85 fL (79-100) Mean Corpuscular Hemoglobin 28 pg (25-35) Mean Corpuscular Hemoglobin Concent 33 g/dL (31-37) Red Cell Distribution Width 16.0 % (11.5-14.5) Platelet Count 343 x10^3/uL (140-400) O2 Saturation 93 % (92-99) Arterial Blood pH 7.43 (7.35-7.45) Arterial Blood pCO2 at Patient Temp 45 mmHg (35-46) Arterial Blood pO2 at Patient Temp 74 mmHg (75-108) Arterial Blood HCO3 29 mmol/L (21-28) Arterial Blood Base Excess 4 mmol/L (-3-3) FiO2 70 Laboratory Tests Test 01/31/20 14:00 01/31/20 21:34 02/01/20 03:35 02/01/20 08:00 Heparin Anti-Xa Act, Unfractionated > 1.10 IU/mL (0.30-0.70) 0.49 IU/mL (0.30-0.70) 0.25 IU/mL (0.30-0.70) White Blood Count 12.7 x10^3/uL (4.0-11.0) Red Blood Count 3.96 x10^6/uL (3.50-5.40) Hemoglobin 11.1 g/dL (12.0-15.5) Hematocrit 33.5 % (36.0-47.0) Mean Corpuscular Volume 85 fL (79-100) Mean Corpuscular Hemoglobin 28 pg (25-35) Mean Corpuscular Hemoglobin Concent 33 g/dL (31-37) Red Cell Distribution Width 16.0 % (11.5-14.5) Platelet Count 343 x10^3/uL (140-400) O2 Saturation 93 % (92-99) Arterial Blood pH 7.43 (7.35-7.45) Arterial Blood pCO2 at Patient Temp 45 mmHg (35-46) Arterial Blood pO2 at Patient Temp 74 mmHg (75-108) Arterial Blood HCO3 29 mmol/L (21-28) Arterial Blood Base Excess 4 mmol/L (-3-3) FiO2 70 Medications Current Medications Acetaminophen (Tylenol) 1,000 mg 1X ONCE PO Last administered on 01/21/20at 17:00; Start 01/21/20 at 17:00; Stop 01/21/20 at 17:01; Status DC Ondansetron HCl (Zofran) 4 mg PRN Q8HRS PRN IV NAUSEA/VOMITING; Start 01/21/20 at 18:00; Stop 01/22/20 at 07:55; Status DC Dexamethasone Sodium Phosphate (Decadron) 6 mg 1X ONCE IVP Last administered on 01/21/20at 18:14; Start 01/21/20 at 18:00; Stop 01/21/20 at 18:01; Status DC Ceftriaxone Sodium (Rocephin) 1 gm 1X ONCE IVP Last administered on 01/21/20at 18:14; Start 01/21/20 at 18:00; Stop 01/21/20 at 18:01; Status DC Azithromycin 500 mg/Sodium Chloride 250 ml @ 250 mls/hr Q24H IV Last administered on 01/25/20at 19:00; Start 01/22/20 at 19:00; Stop 01/26/20 at 09:05; Status DC Azithromycin 250 ml @ 250 mls/hr 1X ONCE IV Last administered on 01/21/20at 18:25; Start 01/21/20 at 18:15; Stop 01/21/20 at 19:14; Status DC Dexamethasone Sodium Phosphate (Decadron) 6 mg DAILY IVP Last administered on 02/01/20at 09:22; Start 01/22/20 at 09:00 Ceftriaxone Sodium (Rocephin) 1 gm Q24H IVP Last administered on 01/29/20at 20:14; Start 01/22/20 at 20:00; Stop 01/30/20 at 16:07; Status DC Azithromycin 250 ml @ 250 mls/hr 1X ONCE IV ; Start 01/21/20 at 19:45; Stop 01/21/20 at 20:44; Status UNV Acetaminophen (Tylenol) 650 mg PRN Q6HRS PRN PO Headaches, Temp > 101.5' Last administered on 01/25/20at 20:45; Start 01/21/20 at 19:45 Ondansetron HCl (Zofran) 4 mg PRN Q6HRS PRN IVP NAUSEA/VOMITING; Start 01/21/20 at 19:45 Al Hydroxide/Mg Hydroxide (Mylanta Plus Xs) 30 ml PRN Q3HRS PRN PO HEARTBURN / GAS; Start 01/21/20 at 19:45 Famotidine (Pepcid) 20 mg BID PO Last administered on 02/01/20 09:22; Start 01/21/20 at 21:00 Enoxaparin Sodium (Lovenox 40mg Syringe) 40 mg Q24H SQ Last administered on 01/21/20at 21:07; Start 01/21/20 at 20:00; Stop 01/22/20 at 10:45; Status DC Sodium Chloride (Normal Saline Flush) 3 ml QSHIFT PRN IV AFTER MEDS AND BLOOD DRAWS; Start 01/21/20 at 19:45 Senna/Docusate Sodium (Senna Plus) 1 tab BID PO Last administered on 02/01/20 09:22; Start 01/21/20 at 21:00 Magnesium Hydroxide (Milk Of Magnesia) 2,400 mg PRN Q12HR PRN PO CONSTIPATION; Start 01/21/20 at 19:45 Sterile Water (WATER for RESP) 1,000 ml CONT PRN INH VIA VAPOTHERM DEVICE Last administered on 01/23/20at 12:46; Start 01/22/20 at 04:30 Lactobacillus Rhamnosus (Culturelle) 1 cap BID PO Last administered on 02/01/20 09:22; Start 01/22/20 at 09:00 Non-Formulary Medication 1 ea/ Sodium Chloride 210 ml @ 420 mls/hr ONCE ONCE IV Last administered on 01/22/20at 10:44; Start 01/22/20 at 11:00; Stop 01/22/20 at 11:29; Status DC Non-Formulary Medication 1 ea/ Sodium Chloride 230 ml @ 460 mls/hr DAILY IV Last administered on 01/26/20at 09:58; Start 01/23/20 at 09:00; Stop 01/26/20 at 09:29; Status DC Enoxaparin Sodium (Lovenox 40mg Syringe) 40 mg BID SQ Last administered on at 20:39; Start 01/22/20 at 11:00; Stop 01/30/20 at 20:57; Status DC Lorazepam (Ativan Inj) 0.5 mg PRN Q4HRS PRN IVP ANXIETY / AGITATION; Start 01/23/20 at 21:00 Lorazepam (Ativan Inj) 0.05 mg 1X ONCE IVP Last administered on 01/23/20at 21:13; Start 01/23/20 at 21:15; Stop 01/23/20 at 21:31; Status DC Fentanyl Citrate 30 ml @ 0 mls/hr CONT PRN IV SEE PROTOCOL Last administered on 02/01/20at 13:07; Start 01/23/20 at 22:45 Propofol 100 ml @ 0 mls/hr CONT PRN IV SEE PROTOCOL; Start 01/23/20 at 22:45 Midazolam HCl 100 ml @ 0 mls/hr CONT PRN IV SEE PROTOCOL Last administered on 02/01/20at 05:57; Start 01/23/20 at 22:45 Vecuronium [place] (Norcuron Bolus) 10 mg STK-MED ONCE IV ; Start 01/23/20 at 23:24; Stop 01/23/20 at 23:25; Status DC Vecuronium [place] (Norcuron Bolus) 60 mg 1X ONCE IV Last administered on 01/23/20at 23:30; Start 01/23/20 at 23:30; Stop 01/23/20 at 23:35; Status DC Norepinephrine Bitartrate 8 mg/ Dextrose 258 ml @ 20.666 mls/ hr CONT PRN IV PER PROTOCOL Last administered on 01/24/20at 12:28; Start 01/24/20 at 02:15 Vecuronium [place] (Norcuron Bolus) 6 mg PRN Q4HRS PRN IV SEDATION Last administered on 01/24/20at 15:40; Start 01/24/20 at 04:30 Succinylcholine Chloride (Anectine) 200 mg STK-MED ONCE .ROUTE ; Start 01/23/20 at 23:00; Stop 01/24/20 at 08:24; Status DC Etomidate (Amidate) 20 mg STK-MED ONCE IV ; Start 01/23/20 at 23:00; Stop 01/24/20 at 08:24; Status DC Ringer's Solution 1,000 ml @ 75 mls/hr [id number] IV Last administered on 01/25/20at 16:21; Start 01/24/20 at 12:30; Stop 01/26/20 at 09:17; Status DC Hydralazine HCl (Apresoline Inj) 10 mg PRN Q4HRS PRN IVP ELEVATED BP, SEE COMMENTS; Start 01/28/20 at 14:00 Heparin Sodium/ Dextrose 250 ml @ 17.6 mls/hr CONT PRN IV PER PROTOCOL Last administered on 02/01/20at 03:04; Start 01/30/20 at 21:00 Heparin Sodium (Porcine) (Heparin Sodium) 3,300 unit PRN Q6HRS PRN IV FOR UFH LEVEL LESS THAN 0.2; Start 01/30/20 at 21:00 Heparin Sodium (Porcine) (Heparin Sodium) 1,650 unit PRN Q6HRS PRN IV FOR UFH LEVEL 0.2 - 0.29 Last administered on 02/01/20at 07:10; Start 01/30/20 at 21:00 Heparin Sodium (Porcine) (Heparin Sodium) 8,700 unit 1X ONCE IV Last administered on 01/31/20at 08:20; Start 01/31/20 at 07:15; Stop 01/31/20 at 07:16; Status DC Active Scripts Active Keflex (Cephalexin) 500 Mg Capsule 500 Mg PO QID 10 Days [place] 5-325 Tablet (Acetaminophen/Hydrocodone Bitart) 1 Each Tablet 1 Tab PO PRN Q6HRS PRN Vitals/I & O Vital Sign - Last 24 Hours 01/31/20 01/31/20 01/31/20 01/31/20 14:00 14:41 15:00 15:11 Pulse 48 41 Resp 24 24 B/P (MAP) 115/58 (77) 116/57 (76) Pulse Ox 94 98 O2 Delivery Ventilator Ventilator Ventilator Ventilator 01/31/20 01/31/20 01/31/20 01/31/20 15:31 16:00 16:00 17:00 Temp 97.7 97.7 Pulse 51 43 Resp 24 24 B/P (MAP) 135/69 (91) 128/61 (83) Pulse Ox 97 96 97 O2 Delivery Ventilator Ventilator Mechanical Ventilator Ventilator 7/3/20 7/3/20 7/3/20 7/3/20 18:00 20:00 20:00 20:09 Temp 97.8 97.8 Pulse 42 40 Resp 24 23 B/P (MAP) 154/80 (104) 137/75 (95) Pulse Ox 97 94 96 O2 Delivery Ventilator Ventilator Mechanical Ventilator Ventilator 01/31/20 01/31/20 01/31/20 01/31/20 21:00 21:40 22:00 22:10 Pulse 38 38 Resp 24 24 24 24 B/P (MAP) 125/63 (83) 112/54 (73) Pulse Ox 99 99 99 99 O2 Delivery Ventilator Ventilator Ventilator Ventilator 01/31/20 01/31/20 02/01/20 02/01/20 23:00 23:57 00:00 00:00 Temp 97.8 97.8 Pulse 39 41 Resp 24 18 B/P (MAP) 148/73 (98) 106/52 (70) Pulse Ox 98 98 99 O2 Delivery Ventilator Ventilator Ventilator Mechanical Ventilator 02/01/20 02/01/20 02/01/20 02/01/20 01:00 02:00 03:00 04:00 Pulse 40 54 54 Resp 23 24 24 20 B/P (MAP) 158/82 (107) 140/76 (97) 138/83 (101) Pulse Ox 99 98 99 98 O2 Delivery Ventilator Ventilator Ventilator Ventilator 02/01/20 02/01/20 02/01/20 02/01/20 04:00 04:00 04:10 04:35 Temp 98.0 98.0 Pulse 44 Resp 11 20 B/P (MAP) 140/73 (95) Pulse Ox 96 98 98 O2 Delivery Mechanical Ventilator Ventilator Ventilator Ventilator 02/01/20 02/01/20 02/01/20 02/01/20 05:00 06:00 07:00 07:59 Temp 97.7 97.7 Pulse 44 54 54 Resp 11 25 22 B/P (MAP) 163/86 (111) 158/89 (112) 134/65 (88) Pulse Ox 98 99 97 100 O2 Delivery Ventilator Ventilator Ventilator Ventilator 02/01/20 02/01/20 02/01/20 02/01/20 08:00 08:00 09:00 10:00 Pulse 66 53 45 Resp 20 24 24 B/P (MAP) 150/81 (104) 117/63 (81) 98/50 (66) Pulse Ox 97 99 99 O2 Delivery Mechanical Ventilator Ventilator Ventilator Ventilator 02/01/20 02/01/20 02/01/20 02/01/20 11:00 11:25 12:00 12:00 Pulse 44 43 Resp 24 24 B/P (MAP) 113/65 (81) 93/47 (62) Pulse Ox 100 99 98 O2 Delivery Ventilator Ventilator Mechanical Ventilator Ventilator 02/01/20 13:07 O2 Delivery Ventilator Intake and Output 01/31/20 01/31/20 02/01/20 15:00 23:00 07:00 Intake Total 300 ml 1436 ml 1277 ml Output Total 1700 ml 1175 ml 1360 ml Balance -1400 ml 261 ml -83 ml Justicifation of Admission Dx: Justifications for Admission: Justification of Admission Dx: Yes Respiratory Failure: Severe Resp Distress ILIA GALVAN MD Feb 01, 2020 13:32
--- NOTE | 2020-02-01 15:02 | PDOC2 ---
CONSULT Date of Consult Date of Consult DATE: 02/01/20 TIME: 15:01 Past Medical History Cardiovascular: HTN Past Surgical History Past Surgical History: Family History Family History: Family History Unknown Social History No ALCOHOL: none Drugs: None Current Problem List Problem List Problems Medical Problems: (1) Pneumonia due to COVID-19 virus Status: Acute Current Medications Current Medications Current Medications Acetaminophen (Tylenol) 1,000 mg 1X ONCE PO Last administered on 01/21/20at 17:00; Start 01/21/20 at 17:00; Stop 01/21/20 at 17:01; Status DC Ondansetron HCl (Zofran) 4 mg PRN Q8HRS PRN IV NAUSEA/VOMITING; Start 01/21/20 at 18:00; Stop 01/22/20 at 07:55; Status DC Dexamethasone Sodium Phosphate (Decadron) 6 mg 1X ONCE IVP Last administered on 01/21/20at 18:14; Start 01/21/20 at 18:00; Stop 01/21/20 at 18:01; Status DC Ceftriaxone Sodium (Rocephin) 1 gm 1X ONCE IVP Last administered on 01/21/20at 18:14; Start 01/21/20 at 18:00; Stop 01/21/20 at 18:01; Status DC Azithromycin 500 mg/Sodium Chloride 250 ml @ 250 mls/hr Q24H IV Last administered on 01/25/20at 19:00; Start 01/22/20 at 19:00; Stop 01/26/20 at 09:05; Status DC Azithromycin 250 ml @ 250 mls/hr 1X ONCE IV Last administered on 01/21/20at 18:25; Start 01/21/20 at 18:15; Stop 01/21/20 at 19:14; Status DC Dexamethasone Sodium Phosphate (Decadron) 6 mg DAILY IVP Last administered on 02/01/20at 09:22; Start 01/22/20 at 09:00 Ceftriaxone Sodium (Rocephin) 1 gm Q24H IVP Last administered on 01/29/20at 20:14; Start 01/22/20 at 20:00; Stop 01/30/20 at 16:07; Status DC Azithromycin 250 ml @ 250 mls/hr 1X ONCE IV ; Start 01/21/20 at 19:45; Stop 01/21/20 at 20:44; Status UNV Acetaminophen (Tylenol) 650 mg PRN Q6HRS PRN PO Headaches, Temp > 101.5' Last administered on 01/25/20at 20:45; Start 01/21/20 at 19:45 Ondansetron HCl (Zofran) 4 mg PRN Q6HRS PRN IVP NAUSEA/VOMITING; Start 01/21/20 at 19:45 Al Hydroxide/Mg Hydroxide (Mylanta Plus Xs) 30 ml PRN Q3HRS PRN PO HEARTBURN / GAS; Start 01/21/20 at 19:45 Famotidine (Pepcid) 20 mg BID PO Last administered on 02/01/20 09:22; Start 01/21/20 at 21:00 Enoxaparin Sodium (Lovenox 40mg Syringe) 40 mg Q24H SQ Last administered on 01/21/20at 21:07; Start 01/21/20 at 20:00; Stop 01/22/20 at 10:45; Status DC Sodium Chloride (Normal Saline Flush) 3 ml QSHIFT PRN IV AFTER MEDS AND BLOOD DRAWS; Start 01/21/20 at 19:45 Senna/Docusate Sodium (Senna Plus) 1 tab BID PO Last administered on 02/01/20 09:22; Start 01/21/20 at 21:00 Magnesium Hydroxide (Milk Of Magnesia) 2,400 mg PRN Q12HR PRN PO CONSTIPATION; Start 01/21/20 at 19:45 Sterile Water (WATER for RESP) 1,000 ml CONT PRN INH VIA VAPOTHERM DEVICE Last administered on 01/23/20at 12:46; Start 01/22/20 at 04:30 Lactobacillus Rhamnosus (Culturelle) 1 cap BID PO Last administered on 02/01/20 09:22; Start 01/22/20 at 09:00 Non-Formulary Medication 1 ea/ Sodium Chloride 210 ml @ 420 mls/hr ONCE ONCE IV Last administered on 01/22/20at 10:44; Start 01/22/20 at 11:00; Stop 01/22/20 at 11:29; Status DC Non-Formulary Medication 1 ea/ Sodium Chloride 230 ml @ 460 mls/hr DAILY IV Last administered on 01/26/20at 09:58; Start 01/23/20 at 09:00; Stop 01/26/20 at 09:29; Status DC Enoxaparin Sodium (Lovenox 40mg Syringe) 40 mg BID SQ Last administered on 01/30/20at 20:39; Start 01/22/20 at 11:00; Stop 01/30/20 at 20:57; Status DC Lorazepam (Ativan Inj) 0.5 mg PRN Q4HRS PRN IVP ANXIETY / AGITATION; Start 01/23/20 at 21:00 Lorazepam (Ativan Inj) 0.05 mg 1X ONCE IVP Last administered on 01/23/20at 21:13; Start 01/23/20 at 21:15; Stop 01/23/20 at 21:31; Status DC Fentanyl Citrate 30 ml @ 0 mls/hr CONT PRN IV SEE PROTOCOL Last administered on 02/01/20at 13:07; Start 01/23/20 at 22:45 Propofol 100 ml @ 0 mls/hr CONT PRN IV SEE PROTOCOL; Start 01/23/20 at 22:45 Midazolam HCl 100 ml @ 0 mls/hr CONT PRN IV SEE PROTOCOL Last administered on 02/01/20at 05:57; Start 01/23/20 at 22:45 Vecuronium [place] (Norcuron Bolus) 10 mg STK-MED ONCE IV ; Start 01/23/20 at 23:24; Stop 01/23/20 at 23:25; Status DC Vecuronium [place] (Norcuron Bolus) 60 mg 1X ONCE IV Last administered on 01/23/20at 23:30; Start 01/23/20 at 23:30; Stop 01/23/20 at 23:35; Status DC Norepinephrine Bitartrate 8 mg/ Dextrose 258 ml @ 20.666 mls/ hr CONT PRN IV PER PROTOCOL Last administered on 01/24/20at 12:28; Start 01/24/20 at 02:15 Vecuronium [place] (Norcuron Bolus) 6 mg PRN Q4HRS PRN IV SEDATION Last administered on 01/24/20at 15:40; Start 01/24/20 at 04:30 Succinylcholine Chloride (Anectine) 200 mg STK-MED ONCE .ROUTE ; Start 01/23/20 at 23:00; Stop 01/24/20 at 08:24; Status DC Etomidate (Amidate) 20 mg STK-MED ONCE IV ; Start 01/23/20 at 23:00; Stop 01/24/20 at 08:24; Status DC Ringer's Solution 1,000 ml @ 75 mls/hr [id number] IV Last administered on 01/25/20at 16:21; Start 01/24/20 at 12:30; Stop 01/26/20 at 09:17; Status DC Hydralazine HCl (Apresoline Inj) 10 mg PRN Q4HRS PRN IVP ELEVATED BP, SEE COMMENTS; Start 01/28/20 at 14:00 Heparin Sodium/ Dextrose 250 ml @ 17.6 mls/hr CONT PRN IV PER PROTOCOL Last administered on 02/01/20at 03:04; Start 01/30/20 at 21:00 Heparin Sodium (Porcine) (Heparin Sodium) 3,300 unit PRN Q6HRS PRN IV FOR UFH LEVEL LESS THAN 0.2; Start 01/30/20 at 21:00 Heparin Sodium (Porcine) (Heparin Sodium) 1,650 unit PRN Q6HRS PRN IV FOR UFH LEVEL 0.2 - 0.29 Last administered on 02/01/20at 07:10; Start 01/30/20 at 21:00 Heparin Sodium (Porcine) (Heparin Sodium) 8,700 unit 1X ONCE IV Last administered on 01/31/20at 08:20; Start 01/31/20 at 07:15; Stop 01/31/20 at 07:16; Status DC Active Scripts Active Keflex (Cephalexin) 500 Mg Capsule 500 Mg PO QID 10 Days [place] 5-325 Tablet (Acetaminophen/Hydrocodone Bitart) 1 Each Tablet 1 Tab PO PRN Q6HRS PRN Allergies Allergies: Coded Allergies: ibuprofen (Verified Allergy, Intermediate, 06/20/18) Vitals VITALS Vital Signs Date Time Temp Pulse Resp B/P (MAP) Pulse Ox O2 Delivery O2 Flow Rate FiO2 02/01/20 13:07 Ventilator 02/01/20 12:00 43 24 93/47 (62) 98 02/01/20 07:00 97.7 97.7 Labs Labs Laboratory Tests Test 01/30/20 18:15 01/31/20 00:36 01/31/20 05:45 01/31/20 08:45 D-Dimer (Shirley) 3.00 ug/mlFEU (0.00-0.50) Glucose (Fingerstick) 165 mg/dL (70-99) White Blood Count 13.0 x10^3/uL (4.0-11.0) Red Blood Count 3.85 x10^6/uL (3.50-5.40) Hemoglobin 10.7 g/dL (12.0-15.5) Hematocrit 32.4 % (36.0-47.0) Mean Corpuscular Volume 84 fL (79-100) Mean Corpuscular Hemoglobin 28 pg (25-35) Mean Corpuscular Hemoglobin Concent 33 g/dL (31-37) Red Cell Distribution Width 15.8 % (11.5-14.5) Platelet Count 325 x10^3/uL (140-400) Neutrophils (%) (Auto) 92 % (31-73) Lymphocytes (%) (Auto) 3 % (24-48) Monocytes (%) (Auto) 4 % (0-9) Eosinophils (%) (Auto) 0 % (0-3) Basophils (%) (Auto) 0 % (0-3) Neutrophils # (Auto) 11.9 x10^3/uL (1.8-7.7) Lymphocytes # (Auto) 0.4 x10^3/uL (1.0-4.8) Monocytes # (Auto) 0.6 x10^3/uL (0.0-1.1) Eosinophils # (Auto) 0.0 x10^3/uL (0.0-0.7) Basophils # (Auto) 0.1 x10^3/uL (0.0-0.2) Sodium Level 135 mmol/L (136-145) Potassium Level 4.6 mmol/L (3.5-5.1) Chloride Level 101 mmol/L (98-107) Carbon Dioxide Level 31 mmol/L (21-32) Anion Gap 3 (6-14) Blood Urea Nitrogen 17 mg/dL (7-20) Creatinine 0.6 mg/dL (0.6-1.0) Estimated GFR (Cockcroft-Gault) 108.6 Glucose Level 159 mg/dL (70-99) Calcium Level 8.4 mg/dL (8.5-10.1) O2 Saturation 97 % (92-99) Arterial Blood pH 7.41 (7.35-7.45) Arterial Blood pCO2 at Patient Temp 43 mmHg (35-46) Arterial Blood pO2 at Patient Temp 101 mmHg (75-108) Arterial Blood HCO3 27 mmol/L (21-28) Arterial Blood Base Excess 2 mmol/L (-3-3) FiO2 80 Test 01/31/20 14:00 01/31/20 21:34 02/01/20 03:35 02/01/20 08:00 Heparin Anti-Xa Act, Unfractionated > 1.10 IU/mL (0.30-0.70) 0.49 IU/mL (0.30-0.70) 0.25 IU/mL (0.30-0.70) White Blood Count 12.7 x10^3/uL (4.0-11.0) Red Blood Count 3.96 x10^6/uL (3.50-5.40) Hemoglobin 11.1 g/dL (12.0-15.5) Hematocrit 33.5 % (36.0-47.0) Mean Corpuscular Volume 85 fL (79-100) Mean Corpuscular Hemoglobin 28 pg (25-35) Mean Corpuscular Hemoglobin Concent 33 g/dL (31-37) Red Cell Distribution Width 16.0 % (11.5-14.5) Platelet Count 343 x10^3/uL (140-400) O2 Saturation 93 % (92-99) Arterial Blood pH 7.43 (7.35-7.45) Arterial Blood pCO2 at Patient Temp 45 mmHg (35-46) Arterial Blood pO2 at Patient Temp 74 mmHg (75-108) Arterial Blood HCO3 29 mmol/L (21-28) Arterial Blood Base Excess 4 mmol/L (-3-3) FiO2 70 Test 02/01/20 13:30 Heparin Anti-Xa Act, Unfractionated 0.64 IU/mL (0.30-0.70) Laboratory Tests Test 01/31/20 21:34 02/01/20 03:35 02/01/20 08:00 02/01/20 13:30 Heparin Anti-Xa Act, Unfractionated 0.49 IU/mL (0.30-0.70) 0.25 IU/mL (0.30-0.70) 0.64 IU/mL (0.30-0.70) White Blood Count 12.7 x10^3/uL (4.0-11.0) Red Blood Count 3.96 x10^6/uL (3.50-5.40) Hemoglobin 11.1 g/dL (12.0-15.5) Hematocrit 33.5 % (36.0-47.0) Mean Corpuscular Volume 85 fL (79-100) Mean Corpuscular Hemoglobin 28 pg (25-35) Mean Corpuscular Hemoglobin Concent 33 g/dL (31-37) Red Cell Distribution Width 16.0 % (11.5-14.5) Platelet Count 343 x10^3/uL (140-400) O2 Saturation 93 % (92-99) Arterial Blood pH 7.43 (7.35-7.45) Arterial Blood pCO2 at Patient Temp 45 mmHg (35-46) Arterial Blood pO2 at Patient Temp 74 mmHg (75-108) Arterial Blood HCO3 29 mmol/L (21-28) Arterial Blood Base Excess 4 mmol/L (-3-3) FiO2 70 MIKE SMYTH MD Feb 01, 2020 15:02
[2020-02-02] VITALS (24 sets, daily range): BP systolic 91–161; BP diastolic 38–80
[2020-02-02] MEDS: fentaNYL HIGH DOSE PCA 55 ML IV PRN (03:08)
[2020-02-02 04:06] LABS: BASO % 0 % (0-3); EOS % 0 % (0-3); HEMATOCRIT 31.6 % (36.0-47.0); HEMOGLOBIN 10.5 g/dL (12.0-15.5); LYMPH # 0.6 x10^3/uL (1.0-4.8); LYMPH % 6 % (24-48); MEAN CORPUSCULAR HEMOGLOBIN 28 pg (25-35); MEAN CORPUSCULAR HGB CONC 33 g/dL (31-37); MEAN CORPUSCULAR VOLUME 86 fL (79-100); MONO # 0.9 x10^3/uL (0.0-1.1); MONO % 7 % (0-9); NEUT # 10.1 x10^3/uL (1.8-7.7); NEUT % 87 % (31-73); PLATELET COUNT 306 x10^3/uL (140-400); RED CELL DISTRIBUTION WIDTH 15.7 % (11.5-14.5); WHITE BLOOD COUNT 11.6 x10^3/uL (4.0-11.0)
[2020-02-02 04:30] LABS: ALBUMIN 2.2 g/dL (3.4-5.0); ALBUMIN/GLOBULIN RATIO 0.6 (1.0-1.7); CALCIUM 7.8 mg/dL (8.5-10.1); CREATININE 0.5 mg/dL (0.6-1.0); POTASSIUM 3.8 mmol/L (3.5-5.1); TOTAL BILIRUBIN 0.3 mg/dL (0.2-1.0); TOTAL PROTEIN 5.9 g/dL (6.4-8.2)
[2020-02-02] MEDS: LACTOBACILLUS RHAMNOSUS GG 1 CAPSULE. PO SCH ×2 (08:04→21:28)
[2020-02-02] MEDS: FAMOTIDINE 20 MG TABLET. PO SCH ×2 (08:04→21:28)
[2020-02-02] MEDS: SENNOSIDES/DOCUSATE 8.6/50MG TABLET. PO SCH ×2 (08:04→21:28)
[2020-02-02] MEDS: DEXAMETHASONE SOD PHOS 4 MG/ML VIAL IVP SCH (08:04)
[2020-02-02] MEDS: NYSTATIN 100,000 UNITS/ML 5 ML ORAL.SUSP. SWSW SCH ×2 (08:08→21:28)
[2020-02-02 08:35] LABS: % BANDS 1 % (0-9); % EOS 1 % (0-5); % LYMPHS 5 % (24-48); % MONOS 6 % (0-10); % SEGS 87 % (35-66)
[2020-02-02 08:36] LABS: PLT ESTIMATE ADEQUATE (ADEQUATE)
[2020-02-02 08:53] LABS: BASE EXCESS ABG 4 mmol/L (-3-3); HCO3 ABG 28 mmol/L (21-28); PCO2 ABG 43 mmHg (35-46); PO2 ABG 140 mmHg (75-108); SAT O2 ABG 98 % (92-99)
[2020-02-02 08:54] LABS: FIO2 ABG 65
--- NOTE | 2020-02-02 09:07 | PDOC ---
PULMONARY PROGRESS NOTES Subjective intubated 01/24/20 Assist-control ventilation, sedated, on PEEP of 10 and Fi02 65% Continues on heparin drip, no overnight concerns from nursing staff Vitals Vital Signs Date Time Temp Pulse Resp B/P (MAP) Pulse Ox O2 Delivery O2 Flow Rate FiO2 02/02/20 08:30 99 Ventilator 02/02/20 06:00 37 24 117/71 (86) 02/02/20 04:00 98.8 98.8 Comments ros unable to obtain sedated on vent Visual exam performed due to COVID-19 pandemic Patient appears to be comfortable in sync with the ventilator, no significant Labs Laboratory Tests Test 01/31/20 14:00 01/31/20 21:34 02/01/20 03:35 02/01/20 08:00 Heparin Anti-Xa Act, Unfractionated > 1.10 IU/mL (0.30-0.70) 0.49 IU/mL (0.30-0.70) 0.25 IU/mL (0.30-0.70) White Blood Count 12.7 x10^3/uL (4.0-11.0) Red Blood Count 3.96 x10^6/uL (3.50-5.40) Hemoglobin 11.1 g/dL (12.0-15.5) Hematocrit 33.5 % (36.0-47.0) Mean Corpuscular Volume 85 fL (79-100) Mean Corpuscular Hemoglobin 28 pg (25-35) Mean Corpuscular Hemoglobin Concent 33 g/dL (31-37) Red Cell Distribution Width 16.0 % (11.5-14.5) Platelet Count 343 x10^3/uL (140-400) O2 Saturation 93 % (92-99) Arterial Blood pH 7.43 (7.35-7.45) Arterial Blood pCO2 at Patient Temp 45 mmHg (35-46) Arterial Blood pO2 at Patient Temp 74 mmHg (75-108) Arterial Blood HCO3 29 mmol/L (21-28) Arterial Blood Base Excess 4 mmol/L (-3-3) FiO2 70 Test 02/01/20 13:30 02/01/20 19:34 02/02/20 02:50 02/02/20 08:53 Heparin Anti-Xa Act, Unfractionated 0.64 IU/mL (0.30-0.70) 0.76 IU/mL (0.30-0.70) 0.57 IU/mL (0.30-0.70) White Blood Count 11.6 x10^3/uL (4.0-11.0) Red Blood Count 3.70 x10^6/uL (3.50-5.40) Hemoglobin 10.5 g/dL (12.0-15.5) Hematocrit 31.6 % (36.0-47.0) Mean Corpuscular Volume 86 fL (79-100) Mean Corpuscular Hemoglobin 28 pg (25-35) Mean Corpuscular Hemoglobin Concent 33 g/dL (31-37) Red Cell Distribution Width 15.7 % (11.5-14.5) Platelet Count 306 x10^3/uL (140-400) Neutrophils (%) (Auto) 87 % (31-73) Lymphocytes (%) (Auto) 6 % (24-48) Monocytes (%) (Auto) 7 % (0-9) Eosinophils (%) (Auto) 0 % (0-3) Basophils (%) (Auto) 0 % (0-3) Neutrophils # (Auto) 10.1 x10^3/uL (1.8-7.7) Lymphocytes # (Auto) 0.6 x10^3/uL (1.0-4.8) Monocytes # (Auto) 0.9 x10^3/uL (0.0-1.1) Eosinophils # (Auto) 0.0 x10^3/uL (0.0-0.7) Basophils # (Auto) 0.0 x10^3/uL (0.0-0.2) Segmented Neutrophils % 87 % (35-66) Band Neutrophils % 1 % (0-9) Lymphocytes % 5 % (24-48) Monocytes % 6 % (0-10) Eosinophils % 1 % (0-5) Platelet Estimate Adequate (ADEQUATE) Sodium Level 136 mmol/L (136-145) Potassium Level 3.8 mmol/L (3.5-5.1) Chloride Level 100 mmol/L (98-107) Carbon Dioxide Level 32 mmol/L (21-32) Anion Gap 4 (6-14) Blood Urea Nitrogen 16 mg/dL (7-20) Creatinine 0.5 mg/dL (0.6-1.0) Estimated GFR (Cockcroft-Gault) 134.0 BUN/Creatinine Ratio 32 (6-20) Glucose Level 121 mg/dL (70-99) Calcium Level 7.8 mg/dL (8.5-10.1) Total Bilirubin 0.3 mg/dL (0.2-1.0) Aspartate Amino Transf (AST/SGOT) 22 U/L (15-37) Alanine Aminotransferase (ALT/SGPT) 33 U/L (14-59) Alkaline Phosphatase 68 U/L (46-116) Total Protein 5.9 g/dL (6.4-8.2) Albumin 2.2 g/dL (3.4-5.0) Albumin/Globulin Ratio 0.6 (1.0-1.7) O2 Saturation 98 % (92-99) Arterial Blood pH 7.43 (7.35-7.45) Arterial Blood pCO2 at Patient Temp 43 mmHg (35-46) Arterial Blood pO2 at Patient Temp 140 mmHg (75-108) Arterial Blood HCO3 28 mmol/L (21-28) Arterial Blood Base Excess 4 mmol/L (-3-3) FiO2 65 Laboratory Tests Test 02/01/20 13:30 02/01/20 19:34 02/02/20 02:50 02/02/20 08:53 Heparin Anti-Xa Act, Unfractionated 0.64 IU/mL (0.30-0.70) 0.76 IU/mL (0.30-0.70) 0.57 IU/mL (0.30-0.70) White Blood Count 11.6 x10^3/uL (4.0-11.0) Red Blood Count 3.70 x10^6/uL (3.50-5.40) Hemoglobin 10.5 g/dL (12.0-15.5) Hematocrit 31.6 % (36.0-47.0) Mean Corpuscular Volume 86 fL (79-100) Mean Corpuscular Hemoglobin 28 pg (25-35) Mean Corpuscular Hemoglobin Concent 33 g/dL (31-37) Red Cell Distribution Width 15.7 % (11.5-14.5) Platelet Count 306 x10^3/uL (140-400) Neutrophils (%) (Auto) 87 % (31-73) Lymphocytes (%) (Auto) 6 % (24-48) Monocytes (%) (Auto) 7 % (0-9) Eosinophils (%) (Auto) 0 % (0-3) Basophils (%) (Auto) 0 % (0-3) Neutrophils # (Auto) 10.1 x10^3/uL (1.8-7.7) Lymphocytes # (Auto) 0.6 x10^3/uL (1.0-4.8) Monocytes # (Auto) 0.9 x10^3/uL (0.0-1.1) Eosinophils # (Auto) 0.0 x10^3/uL (0.0-0.7) Basophils # (Auto) 0.0 x10^3/uL (0.0-0.2) Segmented Neutrophils % 87 % (35-66) Band Neutrophils % 1 % (0-9) Lymphocytes % 5 % (24-48) Monocytes % 6 % (0-10) Eosinophils % 1 % (0-5) Platelet Estimate Adequate (ADEQUATE) Sodium Level 136 mmol/L (136-145) Potassium Level 3.8 mmol/L (3.5-5.1) Chloride Level 100 mmol/L (98-107) Carbon Dioxide Level 32 mmol/L (21-32) Anion Gap 4 (6-14) Blood Urea Nitrogen 16 mg/dL (7-20) Creatinine 0.5 mg/dL (0.6-1.0) Estimated GFR (Cockcroft-Gault) 134.0 BUN/Creatinine Ratio 32 (6-20) Glucose Level 121 mg/dL (70-99) Calcium Level 7.8 mg/dL (8.5-10.1) Total Bilirubin 0.3 mg/dL (0.2-1.0) Aspartate Amino Transf (AST/SGOT) 22 U/L (15-37) Alanine Aminotransferase (ALT/SGPT) 33 U/L (14-59) Alkaline Phosphatase 68 U/L (46-116) Total Protein 5.9 g/dL (6.4-8.2) Albumin 2.2 g/dL (3.4-5.0) Albumin/Globulin Ratio 0.6 (1.0-1.7) O2 Saturation 98 % (92-99) Arterial Blood pH 7.43 (7.35-7.45) Arterial Blood pCO2 at Patient Temp 43 mmHg (35-46) Arterial Blood pO2 at Patient Temp 140 mmHg (75-108) Arterial Blood HCO3 28 mmol/L (21-28) Arterial Blood Base Excess 4 mmol/L (-3-3) FiO2 65 Medications Active Scripts Medications Dose Route/Sig Max Daily Dose Days Date Category Keflex (Cephalexin) 500 Mg Capsule 500 Mg PO QID 10 06/20/18 Rx [place] 5-325 Tablet (Acetaminophen/Hydrocodone Bitart) 1 Each Tablet 1 Tab PO PRN Q6HRS PRN 06/20/18 Rx Comments CXR IMPRESSION: 1. Widespread airspace disease, not significantly changed. 2. Stable position of tubes and lines. Impression . IMPRESSION: 1. Acute hypoxic respiratory failure secondary to COVID-19 pneumonia and sepsis. intubated 01/24/20 2. Abnormal chest x-ray with bilateral patchy infiltrates compatible with COVID-19 pneumonia. COVID-19 + 3. Underlying obesity. 4. Hypertension 5. Hypotension- improved 6, COVID-19 sepsis--improved 7. Presumptive thromboembolic disease related to COVID-19 Plan . Case discussed with VASCULAR RADIOLOGIST, RN and RT Oxygenating better will proceed with trial within the next 24 to 48 hours Continue current ventilatory support at an FiO2 of 65% and a PEEP of 10, will review ABG and chest x-ray and make changes as appropriate, reduced PEEP and FiO2 today now PEEP 8 and 60% Cont. heparin for presumptive thromboembolic disease Currently off ABX Status post convalescent serum 01/22 Continue steroids Continue tube feeding for nutritional support GI/DVT prophylaxis Discussed with RN and RT Total cumulative critical care time of 30 minutes reviewing data, labs, chest x- ray, and formulating a plan CODE: LEIF HERRING MD Feb 02, 2020 09:07
--- NOTE | 2020-02-02 09:40 | RAD ---
Examination: CHEST AP ONLY History: Reason: ETt ube placement / Spl. Instructions: / History: Comparison: 01/28/2020 Portable Chest X-ray Exam. Findings: AP portable upright frontal view of the chest was obtained. Right-sided central venous catheter is present. Enteric tube in noted. Tracheal tube noted. The cardiomediastinal silhouette is normal. Pulmonary vasculature congestion and diffuse interstitial edema or infiltrates noted. No pneumothorax. No definite effusion. Left basilar consolidation and retrocardiac region is noted. IMPRESSION: Interstitial infiltrates and left basilar consolidative findings again noted. Decreased pulmonary aeration overall suggested in the interval. Electronically signed by: Ronan Hancock MD (02/02/2020 9:37 AM) [id number]
[2020-02-02] MEDS: MIDAZOLAM 100mg/100ml NS BAG 100 ML IV PRN ×2 (10:12→20:21)
--- NOTE | 2020-02-02 16:27 | PDOC ---
PROGRESS NOTES Chief Complaint Chief Complaint Acute Hypoxic Respiratory Failure Secondary to COVID-19 and sepsis pneumonia multifocal pulmonary infiltrates.// follow-up to resolution. Morbid Obesity, BMI 44 HTN NORMOCYTIC ANEMIA severe protein-caloric malnutrition v 35 MIN CC TIME The patient was evaluated during the global COVID-19 pandemic, and that diagnosis was suspected/considered upon their initial presentation. Their evaluation, treatment and testing was consistent with current guidelines for patients who present with complaints or symptoms that may be related to COVID- 19. History of Present Illness History of Present Illness 02/01, weaning PEEP and oxygen a little, doing a little better, cont current 01/31, very awake ealier on 10 versed, and IV fent doing well on vent, discussed with RT, going down no Fi02 to 65% wean as able, PULM following cont the steriods and plan above, abx c COVID-19 CRITERIA: The patient was evaluated during the global COVID-19 pandemic, and that diagnosis was suspected/considered upon their initial presentation. Their evaluation, treatment and testing was consistent with current guidelines for patients who present with complaints or symptoms that may be related to COVID-19. Vitals Vitals Vital Signs Date Time Temp Pulse Resp B/P (MAP) Pulse Ox O2 Delivery O2 Flow Rate FiO2 02/02/20 16:03 99 Ventilator 02/02/20 14:00 42 24 96/47 (63) 02/02/20 12:00 98.6 98.6 Physical Exam Physical Exam GENERAL: Orally intubated, on ventilator, eyes are open, + mitts in NAD HEENT: Pupils equal, disconjucated gaze, No conjunctival lesion, ETT, OGT NECK: Supple LUNGS: Diminished aeration bases HEART: S1, S2 regular, will 50s ABDOMEN: Obese, soft, + BS, no guarding : Vasquez EXTREMITIES: Generalized edema. SCDs, bilaterally SKIN: warm to touch. No signs of infection NEUROLOGIC: Unresponsive/sedated Right-sided CVC without signs of infection General: Other Heart: Regular rate Abdomen: Other Extremities: No cyanosis Skin: No breakdown Labs LABS Laboratory Tests Test 02/01/20 19:34 02/02/20 02:50 02/02/20 08:53 02/02/20 08:55 Heparin Anti-Xa Act, Unfractionated 0.76 IU/mL (0.30-0.70) 0.57 IU/mL (0.30-0.70) 0.68 IU/mL (0.30-0.70) White Blood Count 11.6 x10^3/uL (4.0-11.0) Red Blood Count 3.70 x10^6/uL (3.50-5.40) Hemoglobin 10.5 g/dL (12.0-15.5) Hematocrit 31.6 % (36.0-47.0) Mean Corpuscular Volume 86 fL (79-100) Mean Corpuscular Hemoglobin 28 pg (25-35) Mean Corpuscular Hemoglobin Concent 33 g/dL (31-37) Red Cell Distribution Width 15.7 % (11.5-14.5) Platelet Count 306 x10^3/uL (140-400) Neutrophils (%) (Auto) 87 % (31-73) Lymphocytes (%) (Auto) 6 % (24-48) Monocytes (%) (Auto) 7 % (0-9) Eosinophils (%) (Auto) 0 % (0-3) Basophils (%) (Auto) 0 % (0-3) Neutrophils # (Auto) 10.1 x10^3/uL (1.8-7.7) Lymphocytes # (Auto) 0.6 x10^3/uL (1.0-4.8) Monocytes # (Auto) 0.9 x10^3/uL (0.0-1.1) Eosinophils # (Auto) 0.0 x10^3/uL (0.0-0.7) Basophils # (Auto) 0.0 x10^3/uL (0.0-0.2) Segmented Neutrophils % 87 % (35-66) Band Neutrophils % 1 % (0-9) Lymphocytes % 5 % (24-48) Monocytes % 6 % (0-10) Eosinophils % 1 % (0-5) Platelet Estimate Adequate (ADEQUATE) Sodium Level 136 mmol/L (136-145) Potassium Level 3.8 mmol/L (3.5-5.1) Chloride Level 100 mmol/L (98-107) Carbon Dioxide Level 32 mmol/L (21-32) Anion Gap 4 (6-14) Blood Urea Nitrogen 16 mg/dL (7-20) Creatinine 0.5 mg/dL (0.6-1.0) Estimated GFR (Cockcroft-Gault) 134.0 BUN/Creatinine Ratio 32 (6-20) Glucose Level 121 mg/dL (70-99) Calcium Level 7.8 mg/dL (8.5-10.1) Total Bilirubin 0.3 mg/dL (0.2-1.0) Aspartate Amino Transf (AST/SGOT) 22 U/L (15-37) Alanine Aminotransferase (ALT/SGPT) 33 U/L (14-59) Alkaline Phosphatase 68 U/L (46-116) Total Protein 5.9 g/dL (6.4-8.2) Albumin 2.2 g/dL (3.4-5.0) Albumin/Globulin Ratio 0.6 (1.0-1.7) O2 Saturation 98 % (92-99) Arterial Blood pH 7.43 (7.35-7.45) Arterial Blood pCO2 at Patient Temp 43 mmHg (35-46) Arterial Blood pO2 at Patient Temp 140 mmHg (75-108) Arterial Blood HCO3 28 mmol/L (21-28) Arterial Blood Base Excess 4 mmol/L (-3-3) FiO2 65 Assessment and Plan Assessmemt and Plan Problems Medical Problems: (1) Pneumonia due to COVID-19 virus Status: Acute Comment Review of Relevant I have reviewed the following items stephon (where applicable) has been applied. Labs Laboratory Tests Test 01/31/20 21:34 02/01/20 03:35 02/01/20 08:00 02/01/20 13:30 Heparin Anti-Xa Act, Unfractionated 0.49 IU/mL (0.30-0.70) 0.25 IU/mL (0.30-0.70) 0.64 IU/mL (0.30-0.70) White Blood Count 12.7 x10^3/uL (4.0-11.0) Red Blood Count 3.96 x10^6/uL (3.50-5.40) Hemoglobin 11.1 g/dL (12.0-15.5) Hematocrit 33.5 % (36.0-47.0) Mean Corpuscular Volume 85 fL (79-100) Mean Corpuscular Hemoglobin 28 pg (25-35) Mean Corpuscular Hemoglobin Concent 33 g/dL (31-37) Red Cell Distribution Width 16.0 % (11.5-14.5) Platelet Count 343 x10^3/uL (140-400) O2 Saturation 93 % (92-99) Arterial Blood pH 7.43 (7.35-7.45) Arterial Blood pCO2 at Patient Temp 45 mmHg (35-46) Arterial Blood pO2 at Patient Temp 74 mmHg (75-108) Arterial Blood HCO3 29 mmol/L (21-28) Arterial Blood Base Excess 4 mmol/L (-3-3) FiO2 70 Test 02/01/20 19:34 02/02/20 02:50 02/02/20 08:53 02/02/20 08:55 Heparin Anti-Xa Act, Unfractionated 0.76 IU/mL (0.30-0.70) 0.57 IU/mL (0.30-0.70) 0.68 IU/mL (0.30-0.70) White Blood Count 11.6 x10^3/uL (4.0-11.0) Red Blood Count 3.70 x10^6/uL (3.50-5.40) Hemoglobin 10.5 g/dL (12.0-15.5) Hematocrit 31.6 % (36.0-47.0) Mean Corpuscular Volume 86 fL (79-100) Mean Corpuscular Hemoglobin 28 pg (25-35) Mean Corpuscular Hemoglobin Concent 33 g/dL (31-37) Red Cell Distribution Width 15.7 % (11.5-14.5) Platelet Count 306 x10^3/uL (140-400) Neutrophils (%) (Auto) 87 % (31-73) Lymphocytes (%) (Auto) 6 % (24-48) Monocytes (%) (Auto) 7 % (0-9) Eosinophils (%) (Auto) 0 % (0-3) Basophils (%) (Auto) 0 % (0-3) Neutrophils # (Auto) 10.1 x10^3/uL (1.8-7.7) Lymphocytes # (Auto) 0.6 x10^3/uL (1.0-4.8) Monocytes # (Auto) 0.9 x10^3/uL (0.0-1.1) Eosinophils # (Auto) 0.0 x10^3/uL (0.0-0.7) Basophils # (Auto) 0.0 x10^3/uL (0.0-0.2) Segmented Neutrophils % 87 % (35-66) Band Neutrophils % 1 % (0-9) Lymphocytes % 5 % (24-48) Monocytes % 6 % (0-10) Eosinophils % 1 % (0-5) Platelet Estimate Adequate (ADEQUATE) Sodium Level 136 mmol/L (136-145) Potassium Level 3.8 mmol/L (3.5-5.1) Chloride Level 100 mmol/L (98-107) Carbon Dioxide Level 32 mmol/L (21-32) Anion Gap 4 (6-14) Blood Urea Nitrogen 16 mg/dL (7-20) Creatinine 0.5 mg/dL (0.6-1.0) Estimated GFR (Cockcroft-Gault) 134.0 BUN/Creatinine Ratio 32 (6-20) Glucose Level 121 mg/dL (70-99) Calcium Level 7.8 mg/dL (8.5-10.1) Total Bilirubin 0.3 mg/dL (0.2-1.0) Aspartate Amino Transf (AST/SGOT) 22 U/L (15-37) Alanine Aminotransferase (ALT/SGPT) 33 U/L (14-59) Alkaline Phosphatase 68 U/L (46-116) Total Protein 5.9 g/dL (6.4-8.2) Albumin 2.2 g/dL (3.4-5.0) Albumin/Globulin Ratio 0.6 (1.0-1.7) O2 Saturation 98 % (92-99) Arterial Blood pH 7.43 (7.35-7.45) Arterial Blood pCO2 at Patient Temp 43 mmHg (35-46) Arterial Blood pO2 at Patient Temp 140 mmHg (75-108) Arterial Blood HCO3 28 mmol/L (21-28) Arterial Blood Base Excess 4 mmol/L (-3-3) FiO2 65 Laboratory Tests Test 02/01/20 19:34 02/02/20 02:50 02/02/20 08:53 02/02/20 08:55 Heparin Anti-Xa Act, Unfractionated 0.76 IU/mL (0.30-0.70) 0.57 IU/mL (0.30-0.70) 0.68 IU/mL (0.30-0.70) White Blood Count 11.6 x10^3/uL (4.0-11.0) Red Blood Count 3.70 x10^6/uL (3.50-5.40) Hemoglobin 10.5 g/dL (12.0-15.5) Hematocrit 31.6 % (36.0-47.0) Mean Corpuscular Volume 86 fL (79-100) Mean Corpuscular Hemoglobin 28 pg (25-35) Mean Corpuscular Hemoglobin Concent 33 g/dL (31-37) Red Cell Distribution Width 15.7 % (11.5-14.5) Platelet Count 306 x10^3/uL (140-400) Neutrophils (%) (Auto) 87 % (31-73) Lymphocytes (%) (Auto) 6 % (24-48) Monocytes (%) (Auto) 7 % (0-9) Eosinophils (%) (Auto) 0 % (0-3) Basophils (%) (Auto) 0 % (0-3) Neutrophils # (Auto) 10.1 x10^3/uL (1.8-7.7) Lymphocytes # (Auto) 0.6 x10^3/uL (1.0-4.8) Monocytes # (Auto) 0.9 x10^3/uL (0.0-1.1) Eosinophils # (Auto) 0.0 x10^3/uL (0.0-0.7) Basophils # (Auto) 0.0 x10^3/uL (0.0-0.2) Segmented Neutrophils % 87 % (35-66) Band Neutrophils % 1 % (0-9) Lymphocytes % 5 % (24-48) Monocytes % 6 % (0-10) Eosinophils % 1 % (0-5) Platelet Estimate Adequate (ADEQUATE) Sodium Level 136 mmol/L (136-145) Potassium Level 3.8 mmol/L (3.5-5.1) Chloride Level 100 mmol/L (98-107) Carbon Dioxide Level 32 mmol/L (21-32) Anion Gap 4 (6-14) Blood Urea Nitrogen 16 mg/dL (7-20) Creatinine 0.5 mg/dL (0.6-1.0) Estimated GFR (Cockcroft-Gault) 134.0 BUN/Creatinine Ratio 32 (6-20) Glucose Level 121 mg/dL (70-99) Calcium Level 7.8 mg/dL (8.5-10.1) Total Bilirubin 0.3 mg/dL (0.2-1.0) Aspartate Amino Transf (AST/SGOT) 22 U/L (15-37) Alanine Aminotransferase (ALT/SGPT) 33 U/L (14-59) Alkaline Phosphatase 68 U/L (46-116) Total Protein 5.9 g/dL (6.4-8.2) Albumin 2.2 g/dL (3.4-5.0) Albumin/Globulin Ratio 0.6 (1.0-1.7) O2 Saturation 98 % (92-99) Arterial Blood pH 7.43 (7.35-7.45) Arterial Blood pCO2 at Patient Temp 43 mmHg (35-46) Arterial Blood pO2 at Patient Temp 140 mmHg (75-108) Arterial Blood HCO3 28 mmol/L (21-28) Arterial Blood Base Excess 4 mmol/L (-3-3) FiO2 65 Medications Current Medications Acetaminophen (Tylenol) 1,000 mg 1X ONCE PO Last administered on 01/21/20at 17:00; Start 01/21/20 at 17:00; Stop 01/21/20 at 17:01; Status DC Ondansetron HCl (Zofran) 4 mg PRN Q8HRS PRN IV NAUSEA/VOMITING; Start 01/21/20 at 18:00; Stop 01/22/20 at 07:55; Status DC Dexamethasone Sodium Phosphate (Decadron) 6 mg 1X ONCE IVP Last administered on 01/21/20at 18:14; Start 01/21/20 at 18:00; Stop 01/21/20 at 18:01; Status DC Ceftriaxone Sodium (Rocephin) 1 gm 1X ONCE IVP Last administered on 01/21/20at 18:14; Start 01/21/20 at 18:00; Stop 01/21/20 at 18:01; Status DC Azithromycin 500 mg/Sodium Chloride 250 ml @ 250 mls/hr Q24H IV Last adm inistered on 01/25/20at 19:00; Start 01/22/20 at 19:00; Stop 01/26/20 at 09:05; Status DC Azithromycin 250 ml @ 250 mls/hr 1X ONCE IV Last administered on 01/21/20at 18:25; Start 01/21/20 at 18:15; Stop 01/21/20 at 19:14; Status DC Dexamethasone Sodium Phosphate (Decadron) 6 mg DAILY IVP Last administered on 02/02/20at 08:04; Start 01/22/20 at 09:00 Ceftriaxone Sodium (Rocephin) 1 gm Q24H IVP Last administered on 01/29/20at 20:14; Start 01/22/20 at 20:00; Stop 01/30/20 at 16:07; Status DC Azithromycin 250 ml @ 250 mls/hr 1X ONCE IV ; Start 01/21/20 at 19:45; Stop 01/21/20 at 20:44; Status UNV Acetaminophen (Tylenol) 650 mg PRN Q6HRS PRN PO Headaches, Temp > 101.5' Last administered on 01/25/20at 20:45; Start 01/21/20 at 19:45 Ondansetron HCl (Zofran) 4 mg PRN Q6HRS PRN IVP NAUSEA/VOMITING; Start 01/21/20 at 19:45 Al Hydroxide/Mg Hydroxide (Mylanta Plus Xs) 30 ml PRN Q3HRS PRN PO HEARTBURN / GAS; Start 01/21/20 at 19:45 Famotidine (Pepcid) 20 mg BID PO Last administered on 02/02/20at 08:04; Start 01/21/20 at 21:00 Enoxaparin Sodium (Lovenox 40mg Syringe) 40 mg Q24H SQ Last administered on 01/21/20at 21:07; Start 01/21/20 at 20:00; Stop 01/22/20 at 10:45; Status DC Sodium Chloride (Normal Saline Flush) 3 ml QSHIFT PRN IV AFTER MEDS AND BLOOD DRAWS; Start 01/21/20 at 19:45 Senna/Docusate Sodium (Senna Plus) 1 tab BID PO Last administered on 02/02/20at 08:04; Start 01/21/20 at 21:00 Magnesium Hydroxide (Milk Of Magnesia) 2,400 mg PRN Q12HR PRN PO CONSTIPATION; Start 01/21/20 at 19:45 Sterile Water (WATER for RESP) 1,000 ml CONT PRN INH VIA VAPOTHERM DEVICE Last administered on 01/23/20at 12:46; Start 01/22/20 at 04:30 Lactobacillus Rhamnosus (Culturelle) 1 cap BID PO Last administered on 02/02/20at 08:04; Start 01/22/20 at 09:00 Non-Formulary Medication 1 ea/ Sodium Chloride 210 ml @ 420 mls/hr ONCE ONCE IV Last administered on 01/22/20at 10:44; Start 01/22/20 at 11:00; Stop 01/22/20 at 11:29; Status DC Non-Formulary Medication 1 ea/ Sodium Chloride 230 ml @ 460 mls/hr DAILY IV Last administered on 01/26/20at 09:58; Start 01/23/20 at 09:00; Stop 01/26/20 at 09:29; Status DC Enoxaparin Sodium (Lovenox 40mg Syringe) 40 mg BID SQ Last administered on 01/30/20at 20:39; Start 01/22/20 at 11:00; Stop 01/30/20 at 20:57; Status DC Lorazepam (Ativan Inj) 0.5 mg PRN Q4HRS PRN IVP ANXIETY / AGITATION; Start 01/23/20 at 21:00 Lorazepam (Ativan Inj) 0.05 mg 1X ONCE IVP Last administered on 01/23/20at 21:13; Start 01/23/20 at 21:15; Stop 01/23/20 at 21:31; Status DC Fentanyl Citrate 30 ml @ 0 mls/hr CONT PRN IV SEE PROTOCOL Last administered on 02/01/20at 21:15; Start 01/23/20 at 22:45; Stop 02/02/20 at 02:27; Status DC Propofol 100 ml @ 0 mls/hr CONT PRN IV SEE PROTOCOL; Start 01/23/20 at 22:45 Midazolam HCl 100 ml @ 0 mls/hr CONT PRN IV SEE PROTOCOL Last administered on 02/02/20at 10:12; Start 01/23/20 at 22:45 Vecuronium Fiatt (Norcuron Bolus) 10 mg STK-MED ONCE IV ; Start 01/23/20 at 23:24; Stop 01/23/20 at 23:25; Status DC Vecuronium Fiatt (Norcuron Bolus) 60 mg 1X ONCE IV Last administered on 01/23/20at 23:30; Start 01/23/20 at 23:30; Stop 01/23/20 at 23:35; Status DC Norepinephrine Bitartrate 8 mg/ Dextrose 258 ml @ 20.666 mls/ hr CONT PRN IV PER PROTOCOL Last administered on 01/24/20at 12:28; Start 01/24/20 at 02:15 Vecuronium Fiatt (Norcuron Bolus) 6 mg PRN Q4HRS PRN IV SEDATION Last administered on 01/24/20at 15:40; Start 01/24/20 at 04:30 Succinylcholine Chloride (Anectine) 200 mg STK-MED ONCE .ROUTE ; Start 01/23/20 at 23:00; Stop 01/24/20 at 08:24; Status DC Etomidate (Amidate) 20 mg STK-MED ONCE IV ; Start 01/23/20 at 23:00; Stop 01/24/20 at 08:24; Status DC Ringer's Solution 1,000 ml @ 75 mls/hr [id number] IV Last administered on 01/25/20at 16:21; Start 01/24/20 at 12:30; Stop 01/26/20 at 09:17; Status DC Hydralazine HCl (Apresoline Inj) 10 mg PRN Q4HRS PRN IVP ELEVATED BP, SEE COMMENTS; Start 01/28/20 at 14:00 Heparin Sodium/ Dextrose 250 ml @ 17.6 mls/hr CONT PRN IV PER PROTOCOL Last administered on 02/01/20at 22:29; Start 01/30/20 at 21:00 Heparin Sodium (Porcine) (Heparin Sodium) 3,300 unit PRN Q6HRS PRN IV FOR UFH LEVEL LESS THAN 0.2; Start 01/30/20 at 21:00 Heparin Sodium (Porcine) (Heparin Sodium) 1,650 unit PRN Q6HRS PRN IV FOR UFH LEVEL 0.2 - 0.29 Last administered on 02/01/20at 07:10; Start 01/30/20 at 21:00 Heparin Sodium (Porcine) (Heparin Sodium) 8,700 unit 1X ONCE IV Last administered on 01/31/20at 08:20; Start 01/31/20 at 07:15; Stop 01/31/20 at 07:16; Status DC Fentanyl Citrate 55 ml @ 0 mls/hr CONT PRN PRN IV PAIN/SEDATION Last administered on 02/02/20at 03:08; Start 02/02/20 at 02:30 Nystatin (Nystatin Oral Susp) 5 ml BID SWSW Last administered on 02/02/20at 08:08; Start 02/02/20 at 09:00 Active Scripts Active Keflex (Cephalexin) 500 Mg Capsule 500 Mg PO QID 10 Days [place] 5-325 Tablet (Acetaminophen/Hydrocodone Bitart) 1 Each Tablet 1 Tab PO PRN Q6HRS PRN Vitals/I & O Vital Sign - Last 24 Hours 02/01/20 02/01/20 02/01/20 02/01/20 17:00 18:00 20:00 20:00 Temp 97.8 97.8 Pulse 40 44 68 Resp 24 24 22 B/P (MAP) 100/49 (66) 118/68 (85) 116/61 (79) Pulse Ox 97 96 96 O2 Delivery Ventilator Ventilator Mechanical Ventilator Ventilator 02/01/20 02/01/20 02/01/20 02/01/20 20:31 21:00 21:15 22:00 Pulse 60 48 Resp 31 25 B/P (MAP) 127/66 (86) 119/62 (81) Pulse Ox 100 94 94 98 O2 Delivery Ventilator Ventilator Ventilator Ventilator 02/01/20 02/01/20 02/02/20 02/02/20 22:32 23:00 00:00 00:00 Temp 98.2 98.2 Pulse 38 36 Resp 24 22 24 B/P (MAP) 129/73 (91) 134/79 (97) Pulse Ox 96 98 99 O2 Delivery Ventilator Ventilator Ventilator Mechanical Ventilator 02/02/20 02/02/20 02/02/20 02/02/20 00:03 01:00 02:00 03:00 Pulse 41 44 38 Resp 25 23 23 B/P (MAP) 132/71 (91) 100/49 (66) 103/52 (69) Pulse Ox 100 99 99 100 O2 Delivery Ventilator Ventilator Ventilator Ventilator 02/02/20 02/02/20 02/02/20 02/02/20 03:08 04:00 04:00 04:00 Temp 98.8 98.8 Pulse 38 Resp 20 24 24 B/P (MAP) 106/56 (73) Pulse Ox 99 99 100 O2 Delivery Ventilator Ventilator Mechanical Ventilator 02/02/20 02/02/20 02/02/2020 04:23 05:00 06:00 07:00 Pulse 38 37 43 Resp 24 24 23 B/P (MAP) 117/63 (81) 117/71 (86) 118/71 (87) Pulse Ox 100 100 100 98 O2 Delivery Ventilator Ventilator Ventilator Ventilator 02/02/20 02/02/20 02/02/20 02/02/20 08:00 08:00 08:30 09:00 Temp 97.5 97.5 Pulse 41 40 Resp 24 24 B/P (MAP) 109/62 (78) 161/80 (107) Pulse Ox 98 99 98 O2 Delivery Ventilator Mechanical Ventilator Ventilator Ventilator 02/02/20 02/02/20 02/02/20 02/02/20 09:50 10:00 10:52 11:00 Pulse 52 48 Resp 34 24 B/P (MAP) 111/57 (75) 121/60 (80) Pulse Ox 90 95 90 97 O2 Delivery Ventilator Ventilator Ventilator Ventilator 02/02/20 02/02/20 02/02/20 02/02/20 12:00 12:00 13:00 13:30 Temp 98.6 98.6 Pulse 47 40 Resp 26 23 B/P (MAP) 136/72 (93) 105/51 (69) Pulse Ox 98 98 99 O2 Delivery Ventilator Mechanical Ventilator Ventilator Ventilator 02/02/20 02/02/20 02/02/20 14:00 16:00 16:03 Pulse 42 Resp 24 B/P (MAP) 96/47 (63) Pulse Ox 98 99 O2 Delivery Ventilator Mechanical Ventilator Ventilator Intake and Output 02/01/20 02/01/20 02/02/20 15:00 23:00 07:00 Intake Total 340 ml 1849.53 ml 1191 ml Output Total 950 ml 1050 ml 1090 ml Balance -610 ml 799.53 ml 101 ml Justicifation of Admission Dx: Justifications for Admission: Justification of Admission Dx: Yes Respiratory Failure: Severe Resp Distress ILIA GALVAN MD Feb 02, 2020 16:27
[2020-02-02] MEDS: HEPARIN 25,000UTS/250ML PREMIX 250 ML IV PRN (17:38)
[2020-02-03] VITALS (24 sets, daily range): BP systolic 85–162; BP diastolic 40–90
[2020-02-03] MEDS: PROPOFOL 100 ML IV PRN ×2 (02:00→11:48)
[2020-02-03] MEDS: fentaNYL HIGH DOSE PCA 55 ML IV PRN (03:36)
[2020-02-03] MEDS: MIDAZOLAM 100mg/100ml NS BAG 100 ML IV PRN ×2 (03:40→15:25)
[2020-02-03 06:30] LABS: HEMATOCRIT 32.4 % (36.0-47.0); HEMOGLOBIN 10.6 g/dL (12.0-15.5); RED BLOOD COUNT 3.8 x10^6/uL (3.50-5.40); RED CELL DISTRIBUTION WIDTH 16.3 % (11.5-14.5); WHITE BLOOD COUNT 13.6 x10^3/uL (4.0-11.0)
[2020-02-03 08:45] LABS: BASE EXCESS ABG 4 mmol/L (-3-3); HCO3 ABG 28 mmol/L (21-28); PCO2 ABG 41 mmHg (35-46); PO2 ABG 62 mmHg (75-108); SAT O2 ABG 90 % (92-99)
--- NOTE | 2020-02-03 09:03 | PDOC ---
PULMONARY PROGRESS NOTES Subjective intubated 01/24/20 Assist-control ventilation Vitals Vital Signs Date Time Temp Pulse Resp B/P (MAP) Pulse Ox O2 Delivery O2 Flow Rate FiO2 02/03/20 08:00 61 24 122/80 (94) 95 Ventilator 02/03/20 07:00 99.0 99.0 Comments ros unable to obtain sedated on vent Visual exam performed due to COVID-19 pandemic Patient appears to be comfortable in sync with the ventilator, no significant Labs Laboratory Tests Test 02/01/20 13:30 02/01/20 19:34 02/02/20 02:50 02/02/20 08:53 Heparin Anti-Xa Act, Unfractionated 0.64 IU/mL (0.30-0.70) 0.76 IU/mL (0.30-0.70) 0.57 IU/mL (0.30-0.70) White Blood Count 11.6 x10^3/uL (4.0-11.0) Red Blood Count 3.70 x10^6/uL (3.50-5.40) Hemoglobin 10.5 g/dL (12.0-15.5) Hematocrit 31.6 % (36.0-47.0) Mean Corpuscular Volume 86 fL (79-100) Mean Corpuscular Hemoglobin 28 pg (25-35) Mean Corpuscular Hemoglobin Concent 33 g/dL (31-37) Red Cell Distribution Width 15.7 % (11.5-14.5) Platelet Count 306 x10^3/uL (140-400) Neutrophils (%) (Auto) 87 % (31-73) Lymphocytes (%) (Auto) 6 % (24-48) Monocytes (%) (Auto) 7 % (0-9) Eosinophils (%) (Auto) 0 % (0-3) Basophils (%) (Auto) 0 % (0-3) Neutrophils # (Auto) 10.1 x10^3/uL (1.8-7.7) Lymphocytes # (Auto) 0.6 x10^3/uL (1.0-4.8) Monocytes # (Auto) 0.9 x10^3/uL (0.0-1.1) Eosinophils # (Auto) 0.0 x10^3/uL (0.0-0.7) Basophils # (Auto) 0.0 x10^3/uL (0.0-0.2) Segmented Neutrophils % 87 % (35-66) Band Neutrophils % 1 % (0-9) Lymphocytes % 5 % (24-48) Monocytes % 6 % (0-10) Eosinophils % 1 % (0-5) Platelet Estimate Adequate (ADEQUATE) Sodium Level 136 mmol/L (136-145) Potassium Level 3.8 mmol/L (3.5-5.1) Chloride Level 100 mmol/L (98-107) Carbon Dioxide Level 32 mmol/L (21-32) Anion Gap 4 (6-14) Blood Urea Nitrogen 16 mg/dL (7-20) Creatinine 0.5 mg/dL (0.6-1.0) Estimated GFR (Cockcroft-Gault) 134.0 BUN/Creatinine Ratio 32 (6-20) Glucose Level 121 mg/dL (70-99) Calcium Level 7.8 mg/dL (8.5-10.1) Total Bilirubin 0.3 mg/dL (0.2-1.0) Aspartate Amino Transf (AST/SGOT) 22 U/L (15-37) Alanine Aminotransferase (ALT/SGPT) 33 U/L (14-59) Alkaline Phosphatase 68 U/L (46-116) Total Protein 5.9 g/dL (6.4-8.2) Albumin 2.2 g/dL (3.4-5.0) Albumin/Globulin Ratio 0.6 (1.0-1.7) O2 Saturation 98 % (92-99) Arterial Blood pH 7.43 (7.35-7.45) Arterial Blood pCO2 at Patient Temp 43 mmHg (35-46) Arterial Blood pO2 at Patient Temp 140 mmHg (75-108) Arterial Blood HCO3 28 mmol/L (21-28) Arterial Blood Base Excess 4 mmol/L (-3-3) FiO2 65 Test 02/02/20 08:55 02/03/20 06:10 Heparin Anti-Xa Act, Unfractionated 0.68 IU/mL (0.30-0.70) 0.59 IU/mL (0.30-0.70) White Blood Count 13.6 x10^3/uL (4.0-11.0) Red Blood Count 3.80 x10^6/uL (3.50-5.40) Hemoglobin 10.6 g/dL (12.0-15.5) Hematocrit 32.4 % (36.0-47.0) Mean Corpuscular Volume 85 fL (79-100) Mean Corpuscular Hemoglobin 28 pg (25-35) Mean Corpuscular Hemoglobin Concent 33 g/dL (31-37) Red Cell Distribution Width 16.3 % (11.5-14.5) Platelet Count 316 x10^3/uL (140-400) Laboratory Tests Test 02/03/20 06:10 White Blood Count 13.6 x10^3/uL (4.0-11.0) Red Blood Count 3.80 x10^6/uL (3.50-5.40) Hemoglobin 10.6 g/dL (12.0-15.5) Hematocrit 32.4 % (36.0-47.0) Mean Corpuscular Volume 85 fL (79-100) Mean Corpuscular Hemoglobin 28 pg (25-35) Mean Corpuscular Hemoglobin Concent 33 g/dL (31-37) Red Cell Distribution Width 16.3 % (11.5-14.5) Platelet Count 316 x10^3/uL (140-400) Heparin Anti-Xa Act, Unfractionated 0.59 IU/mL (0.30-0.70) Medications Active Scripts Medications Dose Route/Sig Max Daily Dose Days Date Category Keflex (Cephalexin) 500 Mg Capsule 500 Mg PO QID 10 06/20/18 Rx [place] 5-325 Tablet (Acetaminophen/Hydrocodone Bitart) 1 Each Tablet 1 Tab PO PRN Q6HRS PRN 06/20/18 Rx Comments CXR IMPRESSION: 1. Widespread airspace disease, not significantly changed. 2. Stable position of tubes and lines. Impression . IMPRESSION: 1. Acute hypoxic respiratory failure secondary to COVID-19 pneumonia and sepsis. intubated 01/24/20 2. Abnormal chest x-ray with bilateral patchy infiltrates compatible with CO VID-19 pneumonia. COVID-19 + 3. Underlying obesity. 4. Hypertension 5. Hypotension- improved 6, COVID-19 sepsis--improved 7. Presumptive thromboembolic disease related to COVID-19 Plan . Patient with elevated peak airway pressures today we will continue support Continue current ventilatory support at an FiO2 of 65% and a PEEP of 10, will review ABG and chest x-ray and make changes as appropriate, reduced PEEP and FiO2 today now PEEP 8 and 60% Cont. heparin for presumptive thromboembolic disease Currently off ABX Status post convalescent serum 01/22 Continue steroids Continue tube feeding for nutritional support GI/DVT prophylaxis Discussed with RN and RT Total cumulative critical care time of 30 minutes reviewing data, labs, chest x- ray, and formulating a plan CODE: FULL LEIF COBB MD Feb 03, 2020 09:03
--- NOTE | 2020-02-03 09:49 | PDOC ---
PROGRESS NOTES Assessment Problems Medical Problems: (1) Pneumonia due to COVID-19 virus Status: Acute Dysconjugate gaze, no recurrence, patient was in the midst of sedation and severe metabolic encephalopathy. Respiratory failure secondary to COVID-19 and sepsis Pneumonia, Obesity, hypertension, anemia, protein-calorie malnutrition Plan I'm holding off on brain imaging studies given her neurological improvement Subjective Indicates no pain Objective Vital Signs Date Time Temp Pulse Resp B/P (MAP) Pulse Ox O2 Delivery O2 Flow Rate FiO2 02/03/20 08:00 61 24 122/80 (94) 95 Ventilator 02/03/20 07:00 99.0 99.0 Intake and Output 02/03/20 07:00 Intake Total 2008.98 ml Output Total 2630 ml Balance -621.02 ml IV Total 1108.98 ml Tube Feeding 900 ml Output Urine Total 2630 ml Gastric Drainage Total 0 ml PHYSICAL EXAM Intubated, follows commands PERRL. EOMI. CN: no focal findings. Muscle tone: normal. Muscle strength: moves all extremities DTR: 1+ Plantar reflex: flexor Gait: not examined in bed. Sensory exam: no abnormal findings. Cerebellar: not cooperative Review of Relevant I have reviewed the following items stephon (where applicable) has been applied. Labs Laboratory Tests Test 02/01/20 13:30 02/01/20 19:34 02/02/20 02:50 02/02/20 08:53 Heparin Anti-Xa Act, Unfractionated 0.64 IU/mL (0.30-0.70) 0.76 IU/mL (0.30-0.70) 0.57 IU/mL (0.30-0.70) White Blood Count 11.6 x10^3/uL (4.0-11.0) Red Blood Count 3.70 x10^6/uL (3.50-5.40) Hemoglobin 10.5 g/dL (12.0-15.5) Hematocrit 31.6 % (36.0-47.0) Mean Corpuscular Volume 86 fL (79-100) Mean Corpuscular Hemoglobin 28 pg (25-35) Mean Corpuscular Hemoglobin Concent 33 g/dL (31-37) Red Cell Distribution Width 15.7 % (11.5-14.5) Platelet Count 306 x10^3/uL (140-400) Neutrophils (%) (Auto) 87 % (31-73) Lymphocytes (%) (Auto) 6 % (24-48) Monocytes (%) (Auto) 7 % (0-9) Eosinophils (%) (Auto) 0 % (0-3) Basophils (%) (Auto) 0 % (0-3) Neutrophils # (Auto) 10.1 x10^3/uL (1.8-7.7) Lymphocytes # (Auto) 0.6 x10^3/uL (1.0-4.8) Monocytes # (Auto) 0.9 x10^3/uL (0.0-1.1) Eosinophils # (Auto) 0.0 x10^3/uL (0.0-0.7) Basophils # (Auto) 0.0 x10^3/uL (0.0-0.2) Segmented Neutrophils % 87 % (35-66) Band Neutrophils % 1 % (0-9) Lymphocytes % 5 % (24-48) Monocytes % 6 % (0-10) Eosinophils % 1 % (0-5) Platelet Estimate Adequate (ADEQUATE) Sodium Level 136 mmol/L (136-145) Potassium Level 3.8 mmol/L (3.5-5.1) Chloride Level 100 mmol/L (98-107) Carbon Dioxide Level 32 mmol/L (21-32) Anion Gap 4 (6-14) Blood Urea Nitrogen 16 mg/dL (7-20) Creatinine 0.5 mg/dL (0.6-1.0) Estimated GFR (Cockcroft-Gault) 134.0 BUN/Creatinine Ratio 32 (6-20) Glucose Level 121 mg/dL (70-99) Calcium Level 7.8 mg/dL (8.5-10.1) Total Bilirubin 0.3 mg/dL (0.2-1.0) Aspartate Amino Transf (AST/SGOT) 22 U/L (15-37) Alanine Aminotransferase (ALT/SGPT) 33 U/L (14-59) Alkaline Phosphatase 68 U/L (46-116) Total Protein 5.9 g/dL (6.4-8.2) Albumin 2.2 g/dL (3.4-5.0) Albumin/Globulin Ratio 0.6 (1.0-1.7) O2 Saturation 98 % (92-99) Arterial Blood pH 7.43 (7.35-7.45) Arterial Blood pCO2 at Patient Temp 43 mmHg (35-46) Arterial Blood pO2 at Patient Temp 140 mmHg (75-108) Arterial Blood HCO3 28 mmol/L (21-28) Arterial Blood Base Excess 4 mmol/L (-3-3) FiO2 65 Test 02/02/20 08:55 02/03/20 06:10 Heparin Anti-Xa Act, Unfractionated 0.68 IU/mL (0.30-0.70) 0.59 IU/mL (0.30-0.70) White Blood Count 13.6 x10^3/uL (4.0-11.0) Red Blood Count 3.80 x10^6/uL (3.50-5.40) Hemoglobin 10.6 g/dL (12.0-15.5) Hematocrit 32.4 % (36.0-47.0) Mean Corpuscular Volume 85 fL (79-100) Mean Corpuscular Hemoglobin 28 pg (25-35) Mean Corpuscular Hemoglobin Concent 33 g/dL (31-37) Red Cell Distribution Width 16.3 % (11.5-14.5) Platelet Count 316 x10^3/uL (140-400) Laboratory Tests Test 02/03/20 06:10 White Blood Count 13.6 x10^3/uL (4.0-11.0) Red Blood Count 3.80 x10^6/uL (3.50-5.40) Hemoglobin 10.6 g/dL (12.0-15.5) Hematocrit 32.4 % (36.0-47.0) Mean Corpuscular Volume 85 fL (79-100) Mean Corpuscular Hemoglobin 28 pg (25-35) Mean Corpuscular Hemoglobin Concent 33 g/dL (31-37) Red Cell Distribution Width 16.3 % (11.5-14.5) Platelet Count 316 x10^3/uL (140-400) Heparin Anti-Xa Act, Unfractionated 0.59 IU/mL (0.30-0.70) Medications Current Medications Acetaminophen (Tylenol) 1,000 mg 1X ONCE PO Last administered on 01/21/20at 17:00; Start 01/21/20 at 17:00; Stop 01/21/20 at 17:01; Status DC Ondansetron HCl (Zofran) 4 mg PRN Q8HRS PRN IV NAUSEA/VOMITING; Start 01/21/20 at 18:00; Stop 01/22/20 at 07:55; Status DC Dexamethasone Sodium Phosphate (Decadron) 6 mg 1X ONCE IVP Last administered o n 01/21/20at 18:14; Start 01/21/20 at 18:00; Stop 01/21/20 at 18:01; Status DC Ceftriaxone Sodium (Rocephin) 1 gm 1X ONCE IVP Last administered on 01/21/20at 18:14; Start 01/21/20 at 18:00; Stop 01/21/20 at 18:01; Status DC Azithromycin 500 mg/Sodium Chloride 250 ml @ 250 mls/hr Q24H IV Last administered on 01/25/20at 19:00; Start 01/22/20 at 19:00; Stop 01/26/20 at 09:05; Status DC Azithromycin 250 ml @ 250 mls/hr 1X ONCE IV Last administered on 01/21/20at 18:25; Start 01/21/20 at 18:15; Stop 01/21/20 at 19:14; Status DC Dexamethasone Sodium Phosphate (Decadron) 6 mg DAILY IVP Last administered on 02/02/20at 08:04; Start 01/22/20 at 09:00 Ceftriaxone Sodium (Rocephin) 1 gm Q24H IVP Last administered on 01/29/20at 20:14; Start 01/22/20 at 20:00; Stop 01/30/20 at 16:07; Status DC Azithromycin 250 ml @ 250 mls/hr 1X ONCE IV ; Start 01/21/20 at 19:45; Stop 01/21/20 at 20:44; Status UNV Acetaminophen (Tylenol) 650 mg PRN Q6HRS PRN PO Headaches, Temp > 101.5' Last administered on 01/25/20at 20:45; Start 01/21/20 at 19:45 Ondansetron HCl (Zofran) 4 mg PRN Q6HRS PRN IVP NAUSEA/VOMITING; Start 01/21/20 at 19:45 Al Hydroxide/Mg Hydroxide (Mylanta Plus Xs) 30 ml PRN Q3HRS PRN PO HEARTBURN / GAS; Start 01/21/20 at 19:45 Famotidine (Pepcid) 20 mg BID PO Last administered on 02/02/20 21:28; Start 01/21/20 at 21:00 Enoxaparin Sodium (Lovenox 40mg Syringe) 40 mg Q24H SQ Last administered on 01/21/20 21:07; Start 01/21/20 at 20:00; Stop 01/22/20 at 10:45; Status DC Sodium Chloride (Normal Saline Flush) 3 ml QSHIFT PRN IV AFTER MEDS AND BLOOD DRAWS; Start 01/21/20 at 19:45 Senna/Docusate Sodium (Senna Plus) 1 tab BID PO Last administered on 02/02/20 21:28; Start 01/21/20 at 21:00 Magnesium Hydroxide (Milk Of Magnesia) 2,400 mg PRN Q12HR PRN PO CONSTIPATION; Start 01/21/20 at 19:45 Sterile Water (WATER for RESP) 1,000 ml CONT PRN INH VIA VAPOTHERM DEVICE Last administered on 01/23/20at 12:46; Start 01/22/20 at 04:30 Lactobacillus Rhamnosus (Culturelle) 1 cap BID PO Last administered on 02/02/20 21:28; Start 01/22/20 at 09:00 Non-Formulary Medication 1 ea/ Sodium Chloride 210 ml @ 420 mls/hr ONCE ONCE IV Last administered on 01/22/20 10:44; Start 01/22/20 at 11:00; Stop 01/22/20 at 11:29; Status DC Non-Formulary Medication 1 ea/ Sodium Chloride 230 ml @ 460 mls/hr DAILY IV Last administered on 01/26/20 09:58; Start 01/23/20 at 09:00; Stop 01/26/20 at 09:29; Status DC Enoxaparin Sodium (Lovenox 40mg Syringe) 40 mg BID SQ Last administered on 01/30/20at 20:39; Start 01/22/20 at 11:00; Stop 01/30/20 at 20:57; Status DC Lorazepam (Ativan Inj) 0.5 mg PRN Q4HRS PRN IVP ANXIETY / AGITATION; Start 01/23/20 at 21:00 Lorazepam (Ativan Inj) 0.05 mg 1X ONCE IVP Last administered on 6/25/20at 21:13; Start 01/23/20 at 21:15; Stop 01/23/20 at 21:31; Status DC Fentanyl Citrate 30 ml @ 0 mls/hr CONT PRN IV SEE PROTOCOL Last administered on 02/01/20at 21:15; Start 01/23/20 at 22:45; Stop 02/02/20 at 02:27; Status DC Propofol 100 ml @ 0 mls/hr CONT PRN IV SEE PROTOCOL Last administered on 02/03/20at 02:00; Start 01/23/20 at 22:45 Midazolam HCl 100 ml @ 0 mls/hr CONT PRN IV SEE PROTOCOL Last administered on 02/03/20at 03:40; Start 01/23/20 at 22:45 Vecuronium [place] (Norcuron Bolus) 10 mg STK-MED ONCE IV ; Start 01/23/20 at 23:24; Stop 01/23/20 at 23:25; Status DC Vecuronium [place] (Norcuron Bolus) 60 mg 1X ONCE IV Last administered on 01/23/20at 23:30; Start 01/23/20 at 23:30; Stop 01/23/20 at 23:35; Status DC Norepinephrine Bitartrate 8 mg/ Dextrose 258 ml @ 20.666 mls/ hr CONT PRN IV PER PROTOCOL Last administered on 01/24/20at 12:28; Start 01/24/20 at 02:15 Vecuronium [place] (Norcuron Bolus) 6 mg PRN Q4HRS PRN IV SEDATION Last administered on 01/24/20at 15:40; Start 01/24/20 at 04:30 Succinylcholine Chloride (Anectine) 200 mg STK-MED ONCE .ROUTE ; Start 01/23/20 at 23:00; Stop 01/24/20 at 08:24; Status DC Etomidate (Amidate) 20 mg STK-MED ONCE IV ; Start 01/23/20 at 23:00; Stop 01/24/20 at 08:24; Status DC Ringer's Solution 1,000 ml @ 75 mls/hr [id number] IV Last administered on 01/25/20at 16:21; Start 01/24/20 at 12:30; Stop 01/26/20 at 09:17; Status DC Hydralazine HCl (Apresoline Inj) 10 mg PRN Q4HRS PRN IVP ELEVATED BP, SEE COMMENTS; Start 01/28/20 at 14:00 Heparin Sodium/ Dextrose 250 ml @ 17.6 mls/hr CONT PRN IV PER PROTOCOL Last administered on 02/02/20at 17:38; Start 01/30/20 at 21:00 Heparin Sodium (Porcine) (Heparin Sodium) 3,300 unit PRN Q6HRS PRN IV FOR UFH LEVEL LESS THAN 0.2; Start 01/30/20 at 21:00 Heparin Sodium (Porcine) (Heparin Sodium) 1,650 unit PRN Q6HRS PRN IV FOR UFH LEVEL 0.2 - 0.29 Last administered on 02/01/20at 07:10; Start 01/30/20 at 21:00 Heparin Sodium (Porcine) (Heparin Sodium) 8,700 unit 1X ONCE IV Last administered on 01/31/20at 08:20; Start 01/31/20 at 07:15; Stop 01/31/20 at 07:16; Status DC Fentanyl Citrate 55 ml @ 0 mls/hr CONT PRN PRN IV PAIN/SEDATION Last administered on 02/03/20at 03:36; Start 02/02/20 at 02:30 Nystatin (Nystatin Oral Susp) 5 ml BID SWSW Last administered on 02/02/20at 21:28; Start 02/02/20 at 09:00 Active Scripts Active Keflex (Cephalexin) 500 Mg Capsule 500 Mg PO QID 10 Days [place] 5-325 Tablet (Acetaminophen/Hydrocodone Bitart) 1 Each Tablet 1 Tab PO PRN Q6HRS PRN Vitals/I & O Vital Sign - Last 24 Hours 02/02/20 02/02/20 02/02/20 02/02/20 09:50 10:00 10:52 11:00 Pulse 52 48 Resp 34 24 B/P (MAP) 111/57 (75) 121/60 (80) Pulse Ox 90 95 90 97 O2 Delivery Ventilator Ventilator Ventilator Ventilator 02/02/20 02/02/20 02/02/20 02/02/20 12:00 12:00 13:00 13:30 Temp 98.6 98.6 Pulse 47 40 Resp 26 23 B/P (MAP) 136/72 (93) 105/51 (69) Pulse Ox 98 98 99 O2 Delivery Ventilator Mechanical Ventilator Ventilator Ventilator 02/02/20 02/02/20 02/02/20 02/02/20 14:00 15:00 16:00 16:00 Temp 98.6 98.6 Pulse 42 40 48 Resp 24 23 23 B/P (MAP) 96/47 (63) 114/62 (79) 108/63 (78) Pulse Ox 98 99 99 O2 Delivery Ventilator Ventilator Mechanical Ventilator Ventilator 02/02/20 02/02/20 02/02/20 02/02/20 16:03 17:00 17:50 18:00 Pulse 51 48 Resp 23 19 B/P (MAP) 113/48 (69) 124/63 (83) Pulse Ox 99 94 94 99 O2 Delivery Ventilator Ventilator Ventilator Ventilator 02/02/20 02/02/20 02/02/20 02/02/20 19:00 20:00 20:00 20:11 Temp 98.5 98.5 Pulse 46 50 Resp 22 24 B/P (MAP) 91/38 (55) 109/52 (71) Pulse Ox 98 99 98 O2 Delivery Ventilator Mechanical Ventilator Ventilator Ventilator 02/02/20 02/02/20 02/02/20 02/02/20 21:00 22:00 23:00 23:47 Pulse 49 47 56 Resp 24 24 24 B/P (MAP) 114/64 (81) 104/51 (68) 94/43 (60) Pulse Ox 96 98 92 95 O2 Delivery Ventilator Ventilator Ventilator Ventilator 02/03/20 02/03/20 02/03/20 02/03/20 00:00 00:00 01:00 02:00 Temp 98.3 98.3 Pulse 55 60 46 Resp 24 24 24 B/P (MAP) 94/44 (61) 162/90 (114) 109/53 (71) Pulse Ox 96 99 99 O2 Delivery Mechanical Ventilator Ventilator Ventilator Ventilator 02/03/20 02/03/20 02/03/20 02/03/20 03:00 03:57 04:00 04:00 Pulse 42 44 Resp 24 24 B/P (MAP) 85/40 (55) 91/42 (58) Pulse Ox 100 100 100 O2 Delivery Ventilator Ventilator Ventilator Mechanical Ventilator 02/03/20 02/03/20 02/03/20 02/03/20 05:00 06:17 07:00 08:00 Temp 98.3 99.0 98.3 99.0 Pulse 48 53 50 Resp 24 28 29 B/P (MAP) 109/58 (75) 121/71 (88) 137/85 (102) Pulse Ox 95 97 97 O2 Delivery Ventilator Ventilator Ventilator Mechanical Ventilator 02/03/20 08:00 Pulse 61 Resp 24 B/P (MAP) 122/80 (94) Pulse Ox 95 O2 Delivery Ventilator Intake and Output 02/02/20 02/02/20 02/03/20 15:00 23:00 07:00 Intake Total 300 ml 1015.58 ml 693.4 ml Output Total 850 ml 680 ml 1100 ml Balance -550 ml 335.58 ml -406.6 ml Justicifation of Admission Dx: Justifications for Admission: Justification of Admission Dx: Yes Respiratory Failure: Severe Resp Distress ANA ROBERT MD Feb 03, 2020 09:49
[2020-02-03] MEDS: FAMOTIDINE 20 MG TABLET. PO SCH ×2 (11:12→21:22)
[2020-02-03] MEDS: LACTOBACILLUS RHAMNOSUS GG 1 CAPSULE. PO SCH ×2 (11:12→21:22)
[2020-02-03] MEDS: DEXAMETHASONE SOD PHOS 4 MG/ML VIAL IVP SCH (11:12)
[2020-02-03] MEDS: SENNOSIDES/DOCUSATE 8.6/50MG TABLET. PO SCH ×2 (11:12→21:22)
[2020-02-03] MEDS: NYSTATIN 100,000 UNITS/ML 5 ML ORAL.SUSP. SWSW SCH ×2 (11:13→21:22)
[2020-02-03] MEDS: HEPARIN 25,000UTS/250ML PREMIX 250 ML IV PRN (11:50)
--- NOTE | 2020-02-03 12:04 | NUR ---
SS following for discharge planning. SS reviewed pt chart and discussed with pt RN. Pt COVID19 positive. Pt remains on the vent at this time. Pt self pay. SS will continue to follow for discharge planning.
[2020-02-04] VITALS (24 sets, daily range): BP systolic 94–157; BP diastolic 44–83
[2020-02-04] MEDS: MIDAZOLAM 100mg/100ml NS BAG 100 ML IV PRN (01:57)
[2020-02-04] MEDS: PROPOFOL 100 ML IV PRN ×4 (02:42→22:19)
[2020-02-04] MEDS: HEPARIN 25,000UTS/250ML PREMIX 250 ML IV PRN (07:13)
[2020-02-04] MEDS: NYSTATIN 100,000 UNITS/ML 5 ML ORAL.SUSP. SWSW SCH ×2 (07:15→20:48)
[2020-02-04] MEDS: DEXAMETHASONE SOD PHOS 4 MG/ML VIAL IVP SCH (07:15)
[2020-02-04] MEDS: LACTOBACILLUS RHAMNOSUS GG 1 CAPSULE. PO SCH (07:15)
[2020-02-04] MEDS: FAMOTIDINE 20 MG TABLET. PO SCH ×2 (07:15→20:48)
[2020-02-04] MEDS: SENNOSIDES/DOCUSATE 8.6/50MG TABLET. PO SCH ×2 (07:15→20:48)
[2020-02-04 08:42] LABS: BASE EXCESS ABG 2 mmol/L (-3-3); HCO3 ABG 27 mmol/L (21-28); PCO2 ABG 41 mmHg (35-46); PO2 ABG 78 mmHg (75-108); SAT O2 ABG 95 % (92-99)
--- NOTE | 2020-02-04 08:46 | PDOC ---
PULMONARY PROGRESS NOTES Subjective intubated 01/24/20 Assist-control ventilation Vitals Vital Signs Date Time Temp Pulse Resp B/P (MAP) Pulse Ox O2 Delivery O2 Flow Rate FiO2 02/04/20 08:00 97.6 40 24 142/79 (100) 100 Ventilator 97.6 Comments ros unable to obtain sedated on vent Visual exam performed due to COVID-19 pandemic Patient appears to be comfortable in sync with the ventilator, no significant Labs Laboratory Tests Test 02/02/20 08:53 02/02/20 08:55 02/03/20 06:10 02/03/20 08:30 O2 Saturation 98 % (92-99) 90 % (92-99) Arterial Blood pH 7.43 (7.35-7.45) 7.45 (7.35-7.45) Arterial Blood pCO2 at Patient Temp 43 mmHg (35-46) 41 mmHg (35-46) Arterial Blood pO2 at Patient Temp 140 mmHg (75-108) 62 mmHg (75-108) Arterial Blood HCO3 28 mmol/L (21-28) 28 mmol/L (21-28) Arterial Blood Base Excess 4 mmol/L (-3-3) 4 mmol/L (-3-3) FiO2 65 Heparin Anti-Xa Act, Unfractionated 0.68 IU/mL (0.30-0.70) 0.59 IU/mL (0.30-0.70) White Blood Count 13.6 x10^3/uL (4.0-11.0) Red Blood Count 3.80 x10^6/uL (3.50-5.40) Hemoglobin 10.6 g/dL (12.0-15.5) Hematocrit 32.4 % (36.0-47.0) Mean Corpuscular Volume 85 fL (79-100) Mean Corpuscular Hemoglobin 28 pg (25-35) Mean Corpuscular Hemoglobin Concent 33 g/dL (31-37) Red Cell Distribution Width 16.3 % (11.5-14.5) Platelet Count 316 x10^3/uL (140-400) Test 02/04/20 05:45 Heparin Anti-Xa Act, Unfractionated 0.73 IU/mL (0.30-0.70) Laboratory Tests Test 02/04/20 05:45 Heparin Anti-Xa Act, Unfractionated 0.73 IU/mL (0.30-0.70) Medications Active Scripts Medications Dose Route/Sig Max Daily Dose Days Date Category Keflex (Cephalexin) 500 Mg Capsule 500 Mg PO QID 10 06/20/18 Rx [place] 5-325 Tablet (Acetaminophen/Hydrocodone Bitart) 1 Each Tablet 1 Tab PO PRN Q6HRS PRN 06/20/18 Rx Comments CXR IMPRESSION: 1. Widespread airspace disease, not significantly changed. 2. Stable position of tubes and lines. Impression . IMPRESSION: 1. Acute hypoxic respiratory failure secondary to COVID-19 pneumonia and sepsis. intubated 01/24/20 2. Abnormal chest x-ray with bilateral patchy infiltrates compatible with COVID-19 pneumonia. COVID-19 + 3. Underlying obesity. 4. Hypertension 5. Hypotension- improved 6, COVID-19 sepsis--improved 7. Presumptive thromboembolic disease related to COVID-19 Plan . Oxygenation remains about the same We will repeat chest x-ray Cont. heparin for presumptive thromboembolic disease Oxygenation remains the same We will repeat chest x-ray currently off ABX Status post convalescent serum 01/22 Continue steroids Continue tube feeding for nutritional support GI/DVT prophylaxis Discussed with RN and RT Total cumulative critical care time of 30 minutes reviewing data, labs, chest x- ray, and formulating a plan CODE: FULL LEIF COBB MD Feb 04, 2020 08:46
[2020-02-04 08:48] LABS: FIO2 ABG 60
--- NOTE | 2020-02-04 09:05 | PDOC ---
PROGRESS NOTES Chief Complaint Chief Complaint LATE ENTRY, pt seen 02/02, then computer went down Acute Hypoxic Respiratory Failure Secondary to COVID-19 and sepsis pneumonia multifocal pulmonary infiltrates.// follow-up to resolution. Morbid Obesity, BMI 44 HTN NORMOCYTIC ANEMIA severe protein-caloric malnutrition v 35 MIN CC TIME The patient was evaluated during the global COVID-19 pandemic, and that diagnosis was suspected/considered upon their initial presentation. Their evaluation, treatment and testing was consistent with current guidelines for patients who present with complaints or symptoms that may be related to COVID- 19. History of Present Illness History of Present Illness 02/02 weaning slowly, no event, improving slowly 02/01, weaning PEEP and oxygen a little, doing a little better, cont current 01/31, very awake ealier on 10 versed, and IV fent doing well on vent, discussed with RT, going down no Fi02 to 65% wean as able, PULM following cont the steriods and plan above, abx c COVID-19 CRITERIA: The patient was evaluated during the global COVID-19 pandemic, and that diagnosis was suspected/considered upon their initial presentation. Their evaluation, treatment and testing was consistent with current guidelines for patients who present with complaints or symptoms that may be related to COVID-19. Vitals Vitals Vital Signs Date Time Temp Pulse Resp B/P (MAP) Pulse Ox O2 Delivery O2 Flow Rate FiO2 02/04/20 09:00 39 24 137/73 (94) 100 Ventilator 02/04/20 08:00 97.6 97.6 Physical Exam Physical Exam GENERAL: Orally intubated, on ventilator, eyes are open, + mitts in NAD HEENT: Pupils equal, disconjucated gaze, No conjunctival lesion, ETT, OGT NECK: Supple LUNGS: Diminished aeration bases HEART: S1, S2 regular, will 50s ABDOMEN: Obese, soft, + BS, no guarding : Vasquez EXTREMITIES: Generalized edema. SCDs, bilaterally SKIN: warm to touch. No signs of infection NEUROLOGIC: Unresponsive/sedated Right-sided CVC without signs of infection General: Other Heart: Regular rate Abdomen: Other Extremities: No cyanosis Skin: No breakdown Labs LABS Laboratory Tests Test 02/04/20 05:45 02/04/20 08:15 Heparin Anti-Xa Act, Unfractionated 0.73 IU/mL (0.30-0.70) O2 Saturation 95 % (92-99) Arterial Blood pH 7.43 (7.35-7.45) Arterial Blood pCO2 at Patient Temp 41 mmHg (35-46) Arterial Blood pO2 at Patient Temp 78 mmHg (75-108) Arterial Blood HCO3 27 mmol/L (21-28) Arterial Blood Base Excess 2 mmol/L (-3-3) FiO2 60 Assessment and Plan Assessmemt and Plan Problems Medical Problems: (1) Pneumonia due to COVID-19 virus Status: Acute Comment Review of Relevant I have reviewed the following items stephon (where applicable) has been applied. Labs Laboratory Tests Test 02/03/20 06:10 02/03/20 08:30 02/04/20 05:45 02/04/20 08:15 White Blood Count 13.6 x10^3/uL (4.0-11.0) Red Blood Count 3.80 x10^6/uL (3.50-5.40) Hemoglobin 10.6 g/dL (12.0-15.5) Hematocrit 32.4 % (36.0-47.0) Mean Corpuscular Volume 85 fL (79-100) Mean Corpuscular Hemoglobin 28 pg (25-35) Mean Corpuscular Hemoglobin Concent 33 g/dL (31-37) Red Cell Distribution Width 16.3 % (11.5-14.5) Platelet Count 316 x10^3/uL (140-400) Heparin Anti-Xa Act, Unfractionated 0.59 IU/mL (0.30-0.70) 0.73 IU/mL (0.30-0.70) O2 Saturation 90 % (92-99) 95 % (92-99) Arterial Blood pH 7.45 (7.35-7.45) 7.43 (7.35-7.45) Arterial Blood pCO2 at Patient Temp 41 mmHg (35-46) 41 mmHg (35-46) Arterial Blood pO2 at Patient Temp 62 mmHg (75-108) 78 mmHg (75-108) Arterial Blood HCO3 28 mmol/L (21-28) 27 mmol/L (21-28) Arterial Blood Base Excess 4 mmol/L (-3-3) 2 mmol/L (-3-3) FiO2 60 Laboratory Tests Test 02/04/20 05:45 02/04/20 08:15 Heparin Anti-Xa Act, Unfractionated 0.73 IU/mL (0.30-0.70) O2 Saturation 95 % (92-99) Arterial Blood pH 7.43 (7.35-7.45) Arterial Blood pCO2 at Patient Temp 41 mmHg (35-46) Arterial Blood pO2 at Patient Temp 78 mmHg (75-108) Arterial Blood HCO3 27 mmol/L (21-28) Arterial Blood Base Excess 2 mmol/L (-3-3) FiO2 60 Medications Current Medications Acetaminophen (Tylenol) 1,000 mg 1X ONCE PO Last administered on 01/21/20at 17:00; Start 01/21/20 at 17:00; Stop 01/21/20 at 17:01; Status DC Ondansetron HCl (Zofran) 4 mg PRN Q8HRS PRN IV NAUSEA/VOMITING; Start 01/21/20 at 18:00; Stop 01/22/20 at 07:55; Status DC Dexamethasone Sodium Phosphate (Decadron) 6 mg 1X ONCE IVP Last administered on 01/21/20at 18:14; Start 01/21/20 at 18:00; Stop 01/21/20 at 18:01; Status DC Ceftriaxone Sodium (Rocephin) 1 gm 1X ONCE IVP Last administered on 01/21/20at 18:14; Start 01/21/20 at 18:00; Stop 01/21/20 at 18:01; Status DC Azithromycin 500 mg/Sodium Chloride 250 ml @ 250 mls/hr Q24H IV Last administered on 01/25/20at 19:00; Start 01/22/20 at 19:00; Stop 01/26/20 at 09:05; Status DC Azithromycin 250 ml @ 250 mls/hr 1X ONCE IV Last administered on 01/21/20at 18:25; Start 01/21/20 at 18:15; Stop 01/21/20 at 19:14; Status DC Dexamethasone Sodium Phosphate (Decadron) 6 mg DAILY IVP Last administered on 02/04/20at 07:15; Start 01/22/20 at 09:00 Ceftriaxone Sodium (Rocephin) 1 gm Q24H IVP Last administered on 01/29/20at 20:14; Start 01/22/20 at 20:00; Stop 01/30/20 at 16:07; Status DC Azithromycin 250 ml @ 250 mls/hr 1X ONCE IV ; Start 01/21/20 at 19:45; Stop 01/21/20 at 20:44; Status UNV Acetaminophen (Tylenol) 650 mg PRN Q6HRS PRN PO Headaches, Temp > 101.5' Last administered on 01/25/20at 20:45; Start 01/21/20 at 19:45 Ondansetron HCl (Zofran) 4 mg PRN Q6HRS PRN IVP NAUSEA/VOMITING; Start 01/21/20 at 19:45 Al Hydroxide/Mg Hydroxide (Mylanta Plus Xs) 30 ml PRN Q3HRS PRN PO HEARTBURN / GAS; Start 01/21/20 at 19:45 Famotidine (Pepcid) 20 mg BID PO Last administered on 02/04/20at 07:15; Start 01/21/20 at 21:00 Enoxaparin Sodium (Lovenox 40mg Syringe) 40 mg Q24H SQ Last administered on 01/21/20at 21:07; Start 01/21/20 at 20:00; Stop 01/22/20 at 10:45; Status DC Sodium Chloride (Normal Saline Flush) 3 ml QSHIFT PRN IV AFTER MEDS AND BLOOD DRAWS; Start 01/21/20 at 19:45 Senna/Docusate Sodium (Senna Plus) 1 tab BID PO Last administered on 02/04/20at 07:15; Start 01/21/20 at 21:00 Magnesium Hydroxide (Milk Of Magnesia) 2,400 mg PRN Q12HR PRN PO CONSTIPATION; Start 01/21/20 at 19:45 Sterile Water (WATER for RESP) 1,000 ml CONT PRN INH VIA VAPOTHERM DEVICE Last administered on 01/23/20at 12:46; Start 01/22/20 at 04:30 Lactobacillus Rhamnosus (Culturelle) 1 cap BID PO Last administered on 02/04/20at 07:15; Start 01/22/20 at 09:00 Non-Formulary Medication 1 ea/ Sodium Chloride 210 ml @ 420 mls/hr ONCE ONCE IV Last administered on 01/22/20at 10:44; Start 01/22/20 at 11:00; Stop 01/22/20 at 11:29; Status DC Non-Formulary Medication 1 ea/ Sodium Chloride 230 ml @ 460 mls/hr DAILY IV La st administered on 01/26/20at 09:58; Start 01/23/20 at 09:00; Stop 01/26/20 at 09:29; Status DC Enoxaparin Sodium (Lovenox 40mg Syringe) 40 mg BID SQ Last administered on 01/30/20at 20:39; Start 01/22/20 at 11:00; Stop 01/30/20 at 20:57; Status DC Lorazepam (Ativan Inj) 0.5 mg PRN Q4HRS PRN IVP ANXIETY / AGITATION; Start 01/23/20 at 21:00 Lorazepam (Ativan Inj) 0.05 mg 1X ONCE IVP Last administered on 01/23/20at 21:13; Start 01/23/20 at 21:15; Stop 01/23/20 at 21:31; Status DC Fentanyl Citrate 30 ml @ 0 mls/hr CONT PRN IV SEE PROTOCOL Last administered on 02/01/20at 21:15; Start 01/23/20 at 22:45; Stop 02/02/20 at 02:27; Status DC Propofol 100 ml @ 0 mls/hr CONT PRN IV SEE PROTOCOL Last administered on 02/04/20at 02:42; Start 01/23/20 at 22:45 Midazolam HCl 100 ml @ 0 mls/hr CONT PRN IV SEE PROTOCOL Last administered on 02/04/20at 01:57; Start 01/23/20 at 22:45 Vecuronium Valdez (Norcuron Bolus) 10 mg STK-MED ONCE IV ; Start 01/23/20 at 23:24; Stop 01/23/20 at 23:25; Status DC Vecuronium Valdez (Norcuron Bolus) 60 mg 1X ONCE IV Last administered on 01/23/20at 23:30; Start 01/23/20 at 23:30; Stop 01/23/20 at 23:35; Status DC Norepinephrine Bitartrate 8 mg/ Dextrose 258 ml @ 20.666 mls/ hr CONT PRN IV PER PROTOCOL Last administered on 01/24/20at 12:28; Start 01/24/20 at 02:15 Vecuronium [place]dez (Norcuron Bolus) 6 mg PRN Q4HRS PRN IV SEDATION Last administered on 01/24/20at 15:40; Start 01/24/20 at 04:30 Succinylcholine Chloride (Anectine) 200 mg STK-MED ONCE .ROUTE ; Start 01/23/20 at 23:00; Stop 01/24/20 at 08:24; Status DC Etomidate (Amidate) 20 mg STK-MED ONCE IV ; Start 01/23/20 at 23:00; Stop 01/24/20 at 08:24; Status DC Ringer's Solution 1,000 ml @ 75 mls/hr [id number] IV Last administered on 01/25/20at 16:21; Start 01/24/20 at 12:30; Stop 01/26/20 at 09:17; Status DC Hydralazine HCl (Apresoline Inj) 10 mg PRN Q4HRS PRN IVP ELEVATED BP, SEE COMMENTS; Start 01/28/20 at 14:00 Heparin Sodium/ Dextrose 250 ml @ 17.6 mls/hr CONT PRN IV PER PROTOCOL Last administered on 02/04/20at 07:13; Start 01/30/20 at 21:00 Heparin Sodium (Porcine) (Heparin Sodium) 3,300 unit PRN Q6HRS PRN IV FOR UFH LEVEL LESS THAN 0.2; Start 01/30/20 at 21:00 Heparin Sodium (Porcine) (Heparin Sodium) 1,650 unit PRN Q6HRS PRN IV FOR UFH LEVEL 0.2 - 0.29 Last administered on 02/01/20at 07:10; Start 01/30/20 at 21:00 Heparin Sodium (Porcine) (Heparin Sodium) 8,700 unit 1X ONCE IV Last administered on 01/31/20at 08:20; Start 01/31/20 at 07:15; Stop 01/31/20 at 07:16; Status DC Fentanyl Citrate 55 ml @ 0 mls/hr CONT PRN PRN IV PAIN/SEDATION Last administered on 02/03/20at 03:36; Start 02/02/20 at 02:30 Nystatin (Nystatin Oral Susp) 5 ml BID SWSW Last administered on 02/04/20at 07:15; Start 02/02/20 at 09:00 Active Scripts Active Keflex (Cephalexin) 500 Mg Capsule 500 Mg PO QID 10 Days [place] 5-325 Tablet (Acetaminophen/Hydrocodone Bitart) 1 Each Tablet 1 Tab PO PRN Q6HRS PRN Vitals/I & O Vital Sign - Last 24 Hours 02/03/20 02/03/20 02/03/20 02/03/20 10:00 11:00 12:00 12:00 Temp 98.8 98.8 Pulse 48 56 64 Resp 24 27 25 B/P (MAP) 90/40 (57) 104/51 (68) 126/50 (75) Pulse Ox 99 98 97 O2 Delivery Ventilator Ventilator Mechanical Ventilator Ventilator 02/03/20 02/03/20 02/03/20 02/03/20 12:50 13:00 14:00 15:00 Pulse 54 52 48 Resp 29 25 24 B/P (MAP) 127/71 (89) 118/57 (77) 100/46 (64) Pulse Ox 96 97 98 99 O2 Delivery Ventilator Ventilator Ventilator Ventilator 02/03/20 02/03/20 02/03/20 02/03/20 16:00 16:00 16:24 17:00 Temp 98.2 98.2 Pulse 42 48 Resp 24 24 B/P (MAP) 92/42 (59) 107/54 (71) Pulse Ox 99 98 99 O2 Delivery Ventilator Mechanical Ventilator Ventilator Ventilator 02/03/20 02/03/20 02/03/20 02/03/20 18:00 19:00 19:42 20:00 Temp 97.6 97.6 Pulse 59 53 44 Resp 22 26 24 B/P (MAP) 101/49 (66) 107/48 (67) 90/41 (57) Pulse Ox 99 100 100 100 O2 Delivery Ventilator Ventilator Ventilator Ventilator 02/03/20 02/03/20 02/03/20 02/03/20 20:00 21:00 22:00 23:00 Pulse 44 43 43 Resp 24 24 24 B/P (MAP) 91/47 (62) 128/64 (85) 99/43 (61) Pulse Ox 100 100 100 O2 Delivery Mechanical Ventilator Ventilator Ventilator Ventilator 02/03/20 02/04/20 02/04/20 02/04/20 23:07 00:00 00:00 01:00 Temp 98.3 98.3 Pulse 38 39 Resp 24 24 B/P (MAP) 105/52 (69) 109/52 (71) Pulse Ox 100 100 100 O2 Delivery Ventilator Ventilator Mechanical Ventilator Ventilator 02/04/20 02/04/20 02/04/20 02/04/20 02:00 03:00 03:06 04:00 Temp 97.6 97.6 Pulse 41 39 45 Resp 24 24 24 B/P (MAP) 111/55 (73) 94/44 (61) 101/80 (87) Pulse Ox 100 100 100 97 O2 Delivery Ventilator Ventilator Ventilator Ventilator 02/04/20 02/04/20 02/04/20 02/04/20 04:00 05:00 06:00 07:00 Pulse 50 40 39 Resp 24 24 24 B/P (MAP) 120/72 (88) 120/76 (91) 121/60 (80) Pulse Ox 95 99 100 O2 Delivery Mechanical Ventilator Ventilator Ventilator Ventilator 02/04/20 02/04/20 02/04/20 07:52 08:00 09:00 Temp 97.6 97.6 Pulse 40 39 Resp 24 24 B/P (MAP) 142/79 (100) 137/73 (94) Pulse Ox 100 100 O2 Delivery Mechanical Ventilator Ventilator Ventilator Intake and Output 02/03/20 02/03/20 02/04/20 14:59 22:59 06:59 Intake Total 300 ml 1404.42 ml 1320.8 ml Output Total 1825 ml 1195 ml 975 ml Balance -1525 ml 209.42 ml 345.8 ml Justicifation of Admission Dx: Justifications for Admission: Justification of Admission Dx: Yes Respiratory Failure: Severe Resp Distress ILIA GALVAN MD Feb 04, 2020 09:05
--- NOTE | 2020-02-04 11:34 | NUR ---
SS following up with discharge planning. SS reviewed pt chart and discussed with pt RN. Pt remains on the vent at this time. Pt COVID19 positive. Pt on Heparin drip. SS will continue to follow for discharge planning.
[2020-02-04] MEDS: HEPARIN for IV BOLUS 10,000 UNIT/10 ML VIAL. IV PRN (15:13)
[2020-02-04] MEDS ORDERED: FUROSEMIDE 40 MG/4 ML VIAL. IVP ONE (16:00)
[2020-02-04 21:31] LABS: MAGNESIUM 1.9 mg/dL (1.8-2.4)
[2020-02-05] VITALS (24 sets, daily range): BP systolic 91–183; BP diastolic 40–82
[2020-02-05] MEDS: PROPOFOL 100 ML IV PRN ×5 (01:57→21:46)
[2020-02-05] MEDS: HEPARIN 25,000UTS/250ML PREMIX 250 ML IV PRN (01:58)
[2020-02-05] MEDS: fentaNYL HIGH DOSE PCA 55 ML IV PRN (02:06)
[2020-02-05 05:22] LABS: HEMATOCRIT 33.9 % (36.0-47.0); HEMOGLOBIN 11.2 g/dL (12.0-15.5); RED BLOOD COUNT 3.99 x10^6/uL (3.50-5.40); RED CELL DISTRIBUTION WIDTH 17.1 % (11.5-14.5); WHITE BLOOD COUNT 16.7 x10^3/uL (4.0-11.0)
[2020-02-05] MEDS ORDERED: IV NORMAL SALINE 500ML BAG 500 ML IV PRN (07:30)
[2020-02-05] MEDS ORDERED: ATROPINE 0.5 MG/5 ML DISP.SYRINGE. IV PRN (07:30)
[2020-02-05 07:32] LABS: ALBUMIN 2.6 g/dL (3.4-5.0); ALBUMIN/GLOBULIN RATIO 0.7 (1.0-1.7); CALCIUM 8.5 mg/dL (8.5-10.1); CREATININE 0.7 mg/dL (0.6-1.0); GFR 90.9; TOTAL BILIRUBIN 0.3 mg/dL (0.2-1.0); TOTAL PROTEIN 6.4 g/dL (6.4-8.2)
[2020-02-05] MEDS: SENNOSIDES/DOCUSATE 8.6/50MG TABLET. PO SCH ×2 (07:56→21:00)
[2020-02-05] MEDS: DEXAMETHASONE SOD PHOS 4 MG/ML VIAL IVP SCH (07:56)
[2020-02-05] MEDS: FAMOTIDINE 20 MG TABLET. PO SCH (07:56)
[2020-02-05] MEDS: NYSTATIN 100,000 UNITS/ML 5 ML ORAL.SUSP. SWSW SCH ×2 (07:56→21:00)
[2020-02-05] MEDS: DEXMEDETOMIDINE 400 MCG in IV NORMAL SALINE 100ML 96 ML IV PRN ×4 (07:57→22:52)
[2020-02-05 08:04] LABS: BASE EXCESS ABG 8 mmol/L (-3-3); HCO3 ABG 32 mmol/L (21-28); PCO2 ABG 46 mmHg (35-46); PO2 ABG 61 mmHg (75-108); SAT O2 ABG 89 % (92-99)
[2020-02-05 08:09] LABS: FIO2 ABG 40
--- NOTE | 2020-02-05 08:18 | RAD ---
Examination: PORTABLE CHEST 1V History: Reason: RF / Spl. Instructions: / History: Comparison/Correlation: 02/02/2020 Findings: Portable semierect frontal view of the chest was obtained. Tracheal tube and enteric tube are in place. Right subclavian catheter terminating the right atrium. No pneumothorax. Extensive interstitial infiltrate and airspace disease is again seen throughout the lung palacios. Retrocardiac consolidation. Pleural spaces evident although it is mildly improved. No pneumothorax or significant pleural effusion. Impression: Improved left basilar aeration. Diffuse airspace opacification again seen otherwise without significant change. Electronically signed by: Ronan Hancock MD (02/05/2020 8:15 AM) [id number]
--- NOTE | 2020-02-05 08:39 | PDOC ---
PULMONARY PROGRESS NOTES Subjective Patient seen on pressure support of 10 not significantly short of air follows commands Vitals Vital Signs Date Time Temp Pulse Resp B/P (MAP) Pulse Ox O2 Delivery O2 Flow Rate FiO2 02/05/20 08:03 52 24 94/48 (63) 95 Ventilator 02/05/20 04:00 99.0 99.0 Comments ros unable to obtain sedated on vent Visual exam performed due to COVID-19 pandemic Patient appears to be comfortable in sync with the ventilator, no significant Labs Laboratory Tests Test 02/04/20 05:45 02/04/20 08:15 02/04/20 13:17 02/04/20 21:00 Heparin Anti-Xa Act, Unfractionated 0.73 IU/mL (0.30-0.70) 0.29 IU/mL (0.30-0.70) 0.79 IU/mL (0.30-0.70) O2 Saturation 95 % (92-99) Arterial Blood pH 7.43 (7.35-7.45) Arterial Blood pCO2 at Patient Temp 41 mmHg (35-46) Arterial Blood pO2 at Patient Temp 78 mmHg (75-108) Arterial Blood HCO3 27 mmol/L (21-28) Arterial Blood Base Excess 2 mmol/L (-3-3) FiO2 60 Potassium Level 4.0 mmol/L (3.5-5.1) Magnesium Level 1.9 mg/dL (1.8-2.4) Test 02/05/20 05:00 02/05/20 07:30 White Blood Count 16.7 x10^3/uL (4.0-11.0) Red Blood Count 3.99 x10^6/uL (3.50-5.40) Hemoglobin 11.2 g/dL (12.0-15.5) Hematocrit 33.9 % (36.0-47.0) Mean Corpuscular Volume 85 fL (79-100) Mean Corpuscular Hemoglobin 28 pg (25-35) Mean Corpuscular Hemoglobin Concent 33 g/dL (31-37) Red Cell Distribution Width 17.1 % (11.5-14.5) Platelet Count 300 x10^3/uL (140-400) Heparin Anti-Xa Act, Unfractionated 0.69 IU/mL (0.30-0.70) Sodium Level 140 mmol/L (136-145) Potassium Level 4.0 mmol/L (3.5-5.1) Chloride Level 102 mmol/L (98-107) Carbon Dioxide Level 33 mmol/L (21-32) Anion Gap 5 (6-14) Blood Urea Nitrogen 23 mg/dL (7-20) Creatinine 0.7 mg/dL (0.6-1.0) Estimated GFR (Cockcroft-Gault) 90.9 BUN/Creatinine Ratio 33 (6-20) Glucose Level 106 mg/dL (70-99) Calcium Level 8.5 mg/dL (8.5-10.1) Total Bilirubin 0.3 mg/dL (0.2-1.0) Aspartate Amino Transf (AST/SGOT) 21 U/L (15-37) Alanine Aminotransferase (ALT/SGPT) 32 U/L (14-59) Alkaline Phosphatase 64 U/L (46-116) Total Protein 6.4 g/dL (6.4-8.2) Albumin 2.6 g/dL (3.4-5.0) Albumin/Globulin Ratio 0.7 (1.0-1.7) O2 Saturation 89 % (92-99) Arterial Blood pH 7.46 (7.35-7.45) Arterial Blood pCO2 at Patient Temp 46 mmHg (35-46) Arterial Blood pO2 at Patient Temp 61 mmHg (75-108) Arterial Blood HCO3 32 mmol/L (21-28) Arterial Blood Base Excess 8 mmol/L (-3-3) FiO2 40 Laboratory Tests Test 02/04/20 13:17 02/04/20 21:00 02/05/20 05:00 02/05/20 07:30 Heparin Anti-Xa Act, Unfractionated 0.29 IU/mL (0.30-0.70) 0.79 IU/mL (0.30-0.70) 0.69 IU/mL (0.30-0.70) Potassium Level 4.0 mmol/L (3.5-5.1) 4.0 mmol/L (3.5-5.1) Magnesium Level 1.9 mg/dL (1.8-2.4) White Blood Count 16.7 x10^3/uL (4.0-11.0) Red Blood Count 3.99 x10^6/uL (3.50-5.40) Hemoglobin 11.2 g/dL (12.0-15.5) Hematocrit 33.9 % (36.0-47.0) Mean Corpuscular Volume 85 fL (79-100) Mean Corpuscular Hemoglobin 28 pg (25-35) Mean Corpuscular Hemoglobin Concent 33 g/dL (31-37) Red Cell Distribution Width 17.1 % (11.5-14.5) Platelet Count 300 x10^3/uL (140-400) Sodium Level 140 mmol/L (136-145) Chloride Level 102 mmol/L (98-107) Carbon Dioxide Level 33 mmol/L (21-32) Anion Gap 5 (6-14) Blood Urea Nitrogen 23 mg/dL (7-20) Creatinine 0.7 mg/dL (0.6-1.0) Estimated GFR (Cockcroft-Gault) 90.9 BUN/Creatinine Ratio 33 (6-20) Glucose Level 106 mg/dL (70-99) Calcium Level 8.5 mg/dL (8.5-10.1) Total Bilirubin 0.3 mg/dL (0.2-1.0) Aspartate Amino Transf (AST/SGOT) 21 U/L (15-37) Alanine Aminotransferase (ALT/SGPT) 32 U/L (14-59) Alkaline Phosphatase 64 U/L (46-116) Total Protein 6.4 g/dL (6.4-8.2) Albumin 2.6 g/dL (3.4-5.0) Albumin/Globulin Ratio 0.7 (1.0-1.7) O2 Saturation 89 % (92-99) Arterial Blood pH 7.46 (7.35-7.45) Arterial Blood pCO2 at Patient Temp 46 mmHg (35-46) Arterial Blood pO2 at Patient Temp 61 mmHg (75-108) Arterial Blood HCO3 32 mmol/L (21-28) Arterial Blood Base Excess 8 mmol/L (-3-3) FiO2 40 Medications Active Scripts Medications Dose Route/Sig Max Daily Dose Days Date Category Keflex (Cephalexin) 500 Mg Capsule 500 Mg PO QID 10 06/20/18 Rx [place] 5-325 Tablet (Acetaminophen/Hydrocodone Bitart) 1 Each Tablet 1 Tab PO PRN Q6HRS PRN 06/20/18 Rx Comments CXR IMPRESSION: 1. Widespread airspace disease, not significantly changed. 2. Stable position of tubes and lines. Impression . IMPRESSION: 1. Acute hypoxic respiratory failure secondary to COVID-19 pneumonia and sepsis. intubated 01/24/20 2. Abnormal chest x-ray with bilateral patchy infiltrates compatible with COVID-19 pneumonia. COVID-19 + 3. Underlying obesity. 4. Hypertension 5. Hypotension- improved 6, COVID-19 sepsis--improved 7. Presumptive thromboembolic disease related to COVID-19 Plan . ABG noted, suspect patient will be extubated tomorrow Repeat chest x-ray reviewed Cont. heparin for presumptive thromboembolic disease Oxygenation remains the same currently off ABX Status post convalescent serum 01/22 Continue steroids Continue tube feeding for nutritional support GI/DVT prophylaxis Discussed with RN and RT Total cumulative critical care time of 30 minutes reviewing data, labs, chest x- ray, and formulating a plan CODE: FULL LEIF COBB MD Feb 05, 2020 08:39
[2020-02-05] MEDS: ANTI-COAG MONITOR BY PHARMACY. MC PRN (09:39)
--- NOTE | 2020-02-05 10:57 | PDOC ---
PROGRESS NOTES Assessment Problems Medical Problems: (1) Pneumonia due to COVID-19 virus Status: Acute Dysconjugate gaze, no recurrence, patient was in the midst of sedation and severe metabolic encephalopathy. Respiratory failure secondary to COVID-19 and sepsis Pneumonia, obesity, hypertension, anemia, protein-calorie malnutrition Agitated yesterday off sedation per nurse report Plan holding off on brain imaging studies given her neurological improvement Subjective none Objective Vital Signs Date Time Temp Pulse Resp B/P (MAP) Pulse Ox O2 Delivery O2 Flow Rate FiO2 02/05/20 10:04 75 24 121/65 (83) 94 Ventilator 02/05/20 08:03 97.9 97.9 Intake and Output 02/05/20 07:00 Intake Total 4265.95 ml Output Total 4945 ml Balance -679.05 ml IV Total 851.95 ml Tube Feeding 2964 ml Other 450 ml Output Urine Total 4945 ml PHYSICAL EXAM Intubated, follows commands, sedated PERRL. EOMI. CN: no focal findings. Muscle tone: normal. Muscle strength: moves all extremities DTR: 1+ Plantar reflex: flexor Gait: not examined in bed. Sensory exam: no abnormal findings. Cerebellar: not cooperative Review of Relevant I have reviewed the following items setphon (where applicable) has been applied. Labs Laboratory Tests Test 02/04/20 05:45 02/04/20 08:15 02/04/20 13:17 02/04/20 21:00 Heparin Anti-Xa Act, Unfractionated 0.73 IU/mL (0.30-0.70) 0.29 IU/mL (0.30-0.70) 0.79 IU/mL (0.30-0.70) O2 Saturation 95 % (92-99) Arterial Blood pH 7.43 (7.35-7.45) Arterial Blood pCO2 at Patient Temp 41 mmHg (35-46) Arterial Blood pO2 at Patient Temp 78 mmHg (75-108) Arterial Blood HCO3 27 mmol/L (21-28) Arterial Blood Base Excess 2 mmol/L (-3-3) FiO2 60 Potassium Level 4.0 mmol/L (3.5-5.1) Magnesium Level 1.9 mg/dL (1.8-2.4) Test 02/05/20 05:00 02/05/20 07:30 White Blood Count 16.7 x10^3/uL (4.0-11.0) Red Blood Count 3.99 x10^6/uL (3.50-5.40) Hemoglobin 11.2 g/dL (12.0-15.5) Hematocrit 33.9 % (36.0-47.0) Mean Corpuscular Volume 85 fL (79-100) Mean Corpuscular Hemoglobin 28 pg (25-35) Mean Corpuscular Hemoglobin Concent 33 g/dL (31-37) Red Cell Distribution Width 17.1 % (11.5-14.5) Platelet Count 300 x10^3/uL (140-400) Heparin Anti-Xa Act, Unfractionated 0.69 IU/mL (0.30-0.70) Sodium Level 140 mmol/L (136-145) Potassium Level 4.0 mmol/L (3.5-5.1) Chloride Level 102 mmol/L (98-107) Carbon Dioxide Level 33 mmol/L (21-32) Anion Gap 5 (6-14) Blood Urea Nitrogen 23 mg/dL (7-20) Creatinine 0.7 mg/dL (0.6-1.0) Estimated GFR (Cockcroft-Gault) 90.9 BUN/Creatinine Ratio 33 (6-20) Glucose Level 106 mg/dL (70-99) Calcium Level 8.5 mg/dL (8.5-10.1) Total Bilirubin 0.3 mg/dL (0.2-1.0) Aspartate Amino Transf (AST/SGOT) 21 U/L (15-37) Alanine Aminotransferase (ALT/SGPT) 32 U/L (14-59) Alkaline Phosphatase 64 U/L (46-116) Total Protein 6.4 g/dL (6.4-8.2) Albumin 2.6 g/dL (3.4-5.0) Albumin/Globulin Ratio 0.7 (1.0-1.7) O2 Saturation 89 % (92-99) Arterial Blood pH 7.46 (7.35-7.45) Arterial Blood pCO2 at Patient Temp 46 mmHg (35-46) Arterial Blood pO2 at Patient Temp 61 mmHg (75-108) Arterial Blood HCO3 32 mmol/L (21-28) Arterial Blood Base Excess 8 mmol/L (-3-3) FiO2 40 Laboratory Tests Test 02/04/20 13:17 02/04/20 21:00 02/05/20 05:00 02/05/20 07:30 Heparin Anti-Xa Act, Unfractionated 0.29 IU/mL (0.30-0.70) 0.79 IU/mL (0.30-0.70) 0.69 IU/mL (0.30-0.70) Potassium Level 4.0 mmol/L (3.5-5.1) 4.0 mmol/L (3.5-5.1) Magnesium Level 1.9 mg/dL (1.8-2.4) White Blood Count 16.7 x10^3/uL (4.0-11.0) Red Blood Count 3.99 x10^6/uL (3.50-5.40) Hemoglobin 11.2 g/dL (12.0-15.5) Hematocrit 33.9 % (36.0-47.0) Mean Corpuscular Volume 85 fL (79-100) Mean Corpuscular Hemoglobin 28 pg (25-35) Mean Corpuscular Hemoglobin Concent 33 g/dL (31-37) Red Cell Distribution Width 17.1 % (11.5-14.5) Platelet Count 300 x10^3/uL (140-400) Sodium Level 140 mmol/L (136-145) Chloride Level 102 mmol/L (98-107) Carbon Dioxide Level 33 mmol/L (21-32) Anion Gap 5 (6-14) Blood Urea Nitrogen 23 mg/dL (7-20) Creatinine 0.7 mg/dL (0.6-1.0) Estimated GFR (Cockcroft-Gault) 90.9 BUN/Creatinine Ratio 33 (6-20) Glucose Level 106 mg/dL (70-99) Calcium Level 8.5 mg/dL (8.5-10.1) Total Bilirubin 0.3 mg/dL (0.2-1.0) Aspartate Amino Transf (AST/SGOT) 21 U/L (15-37) Alanine Aminotransferase (ALT/SGPT) 32 U/L (14-59) Alkaline Phosphatase 64 U/L (46-116) Total Protein 6.4 g/dL (6.4-8.2) Albumin 2.6 g/dL (3.4-5.0) Albumin/Globulin Ratio 0.7 (1.0-1.7) O2 Saturation 89 % (92-99) Arterial Blood pH 7.46 (7.35-7.45) Arterial Blood pCO2 at Patient Temp 46 mmHg (35-46) Arterial Blood pO2 at Patient Temp 61 mmHg (75-108) Arterial Blood HCO3 32 mmol/L (21-28) Arterial Blood Base Excess 8 mmol/L (-3-3) FiO2 40 Medications Current Medications Acetaminophen (Tylenol) 1,000 mg 1X ONCE PO Last administered on 01/21/20at 17:00; Start 01/21/20 at 17:00; Stop 01/21/20 at 17:01; Status DC Ondansetron HCl (Zofran) 4 mg PRN Q8HRS PRN IV NAUSEA/VOMITING; Start 01/21/20 at 18:00; Stop 01/22/20 at 07:55; Status DC Dexamethasone Sodium Phosphate (Decadron) 6 mg 1X ONCE IVP Last administered on 01/21/20at 18:14; Start 01/21/20 at 18:00; Stop 01/21/20 at 18:01; Status DC Ceftriaxone Sodium (Rocephin) 1 gm 1X ONCE IVP Last administered on 01/21/20at 18:14; Start 01/21/20 at 18:00; Stop 01/21/20 at 18:01; Status DC Azithromycin 500 mg/Sodium Chloride 250 ml @ 250 mls/hr Q24H IV Last administered on 01/25/20at 19:00; Start 01/22/20 at 19:00; Stop 01/26/20 at 09:05; Status DC Azithromycin 250 ml @ 250 mls/hr 1X ONCE IV Last administered on 01/21/20at 18:25; Start 01/21/20 at 18:15; Stop 01/21/20 at 19:14; Status DC Dexamethasone Sodium Phosphate (Decadron) 6 mg DAILY IVP Last administered on 02/05/20at 07:56; Start 01/22/20 at 09:00 Ceftriaxone Sodium (Rocephin) 1 gm Q24H IVP Last administered on 01/29/20at 20:14; Start 01/22/20 at 20:00; Stop 01/30/20 at 16:07; Status DC Azithromycin 250 ml @ 250 mls/hr 1X ONCE IV ; Start 01/21/20 at 19:45; Stop 01/21/20 at 20:44; Status UNV Acetaminophen (Tylenol) 650 mg PRN Q6HRS PRN PO Headaches, Temp > 101.5' Last administered on 01/25/20at 20:45; Start 01/21/20 at 19:45 Ondansetron HCl (Zofran) 4 mg PRN Q6HRS PRN IVP NAUSEA/VOMITING; Start 01/21/20 at 19:45 Al Hydroxide/Mg Hydroxide (Mylanta Plus Xs) 30 ml PRN Q3HRS PRN PO HEARTBURN / GAS; Start 01/21/20 at 19:45 Famotidine (Pepcid) 20 mg BID PO Last administered on 02/05/20at 07:56; Start 01/21/20 at 21:00 Enoxaparin Sodium (Lovenox 40mg Syringe) 40 mg Q24H SQ Last administered on 01/21/20at 21:07; Start 01/21/20 at 20:00; Stop 01/22/20 at 10:45; Status DC Sodium Chloride (Normal Saline Flush) 3 ml QSHIFT PRN IV AFTER MEDS AND BLOOD DRAWS; Start 01/21/20 at 19:45 Senna/Docusate Sodium (Senna Plus) 1 tab BID PO Last administered on 02/05/20at 07:56; Start 01/21/20 at 21:00 Magnesium Hydroxide (Milk Of Magnesia) 2,400 mg PRN Q12HR PRN PO CONSTIPATION; Start 01/21/20 at 19:45 Sterile Water (WATER for RESP) 1,000 ml CONT PRN INH VIA VAPOTHERM DEVICE Last administered on 01/23/20at 12:46; Start 01/22/20 at 04:30; Stop 02/05/20 at 09:43; Status DC Lactobacillus Rhamnosus (Culturelle) 1 cap BID PO Last administered on 02/04/20at 07:15; Start 01/22/20 at 09:00; Stop 02/04/20 at 10:38; Status DC Non-Formulary Medication 1 ea/ Sodium Chloride 210 ml @ 420 mls/hr ONCE ONCE IV Last administered on 01/22/20at 10:44; Start 01/22/20 at 11:00; Stop 01/22/20 at 11:29; Status DC Non-Formulary Medication 1 ea/ Sodium Chloride 230 ml @ 460 mls/hr DAILY IV Last administered on 01/26/20at 09:58; Start 01/23/20 at 09:00; Stop 01/26/20 at 09:29; Status DC Enoxaparin Sodium (Lovenox 40mg Syringe) 40 mg BID SQ Last administered on 01/30/20at 20:39; Start 01/22/20 at 11:00; Stop 01/30/20 at 20:57; Status DC Lorazepam (Ativan Inj) 0.5 mg PRN Q4HRS PRN IVP ANXIETY / AGITATION; Start 01/23/20 at 21:00 Lorazepam (Ativan Inj) 0.05 mg 1X ONCE IVP Last administered on 01/23/20at 21:13; Start 01/23/20 at 21:15; Stop 01/23/20 at 21:31; Status DC Fentanyl Citrate 30 ml @ 0 mls/hr CONT PRN IV SEE PROTOCOL Last administered on 02/01/20at 21:15; Start 01/23/20 at 22:45; Stop 02/02/20 at 02:27; Status DC Propofol 100 ml @ 0 mls/hr CONT PRN IV SEE PROTOCOL Last administered on 02/05/20at 09:21; Start 01/23/20 at 22:45 Midazolam HCl 100 ml @ 0 mls/hr CONT PRN IV SEE PROTOCOL Last administered on 02/04/20at 01:57; Start 01/23/20 at 22:45 Vecuronium [place] (Norcuron Bolus) 10 mg STK-MED ONCE IV ; Start 01/23/20 at 23:24; Stop 01/23/20 at 23:25; Status DC Vecuronium [place] (Norcuron Bolus) 60 mg 1X ONCE IV Last administered on 01/23/20at 23:30; Start 01/23/20 at 23:30; Stop 01/23/20 at 23:35; Status DC Norepinephrine Bitartrate 8 mg/ Dextrose 258 ml @ 20.666 mls/ hr CONT PRN IV PER PROTOCOL Last administered on 01/24/20at 12:28; Start 01/24/20 at 02:15 Vecuronium [place] (Norcuron Bolus) 6 mg PRN Q4HRS PRN IV SEDATION Last adminis tered on 01/24/20at 15:40; Start 01/24/20 at 04:30 Succinylcholine Chloride (Anectine) 200 mg STK-MED ONCE .ROUTE ; Start 01/23/20 at 23:00; Stop 01/24/20 at 08:24; Status DC Etomidate (Amidate) 20 mg STK-MED ONCE IV ; Start 01/23/20 at 23:00; Stop 01/24/20 at 08:24; Status DC Ringer's Solution 1,000 ml @ 75 mls/hr [id number] IV Last administered on 01/25/20at 16:21; Start 01/24/20 at 12:30; Stop 01/26/20 at 09:17; Status DC Hydralazine HCl (Apresoline Inj) 10 mg PRN Q4HRS PRN IVP ELEVATED BP, SEE COMMENTS; Start 01/28/20 at 14:00 Heparin Sodium/ Dextrose 250 ml @ 17.6 mls/hr CONT PRN IV PER PROTOCOL Last administered on 02/05/20at 01:58; Start 01/30/20 at 21:00 Heparin Sodium (Porcine) (Heparin Sodium) 3,300 unit PRN Q6HRS PRN IV FOR UFH LEVEL LESS THAN 0.2; Start 01/30/20 at 21:00 Heparin Sodium (Porcine) (Heparin Sodium) 1,650 unit PRN Q6HRS PRN IV FOR UFH LEVEL 0.2 - 0.29 Last administered on 02/04/20at 15:13; Start 01/30/20 at 21:00 Heparin Sodium (Porcine) (Heparin Sodium) 8,700 unit 1X ONCE IV Last adm inistered on 01/31/20at 08:20; Start 01/31/20 at 07:15; Stop 01/31/20 at 07:16; Status DC Fentanyl Citrate 55 ml @ 0 mls/hr CONT PRN PRN IV PAIN/SEDATION Last administered on 02/05/20at 02:06; Start 02/02/20 at 02:30 Nystatin (Nystatin Oral Susp) 5 ml BID SWSW Last administered on 02/05/20at 07:56; Start 02/02/20 at 09:00 Furosemide (Lasix) 40 mg 1X ONCE IVP Last administered on 02/04/20at 17:12; Start 02/04/20 at 16:00; Stop 02/04/20 at 16:01; Status DC Dexmedetomidine HCl 400 mcg/ Sodium Chloride 100 ml @ 0 mls/hr CONT PRN IV SEE COMMENTS Last administered on 02/05/20at 07:57; Start 02/05/20 at 07:30 Sodium Chloride 500 ml @ 500 mls/hr 1X PRN PRN IV ANXIETY / AGITATION; Start 02/05/20 at 07:30 Atropine Sulfate (ATROPINE 0.5mg SYRINGE) 0.5 mg PRN Q5MIN PRN IV SEE COMMENTS; Start 02/05/20 at 07:30 Info (Anti-Coagulation Monitoring By Pharmacy) 1 each PRN DAILY PRN MC SEE COMMENTS Last administered on 02/05/20at 09:39; Start 02/05/20 at 07:45 Active Scripts Active Keflex (Cephalexin) 500 Mg Capsule 500 Mg PO QID 10 Days [place] 5-325 Tablet (Acetaminophen/Hydrocodone Bitart) 1 Each Tablet 1 Tab PO PRN Q6HRS PRN Vitals/I & O Vital Sign - Last 24 Hours 02/04/20 02/04/20 02/04/20 02/04/20 11:00 12:00 12:00 12:31 Temp 98.2 98.2 Pulse 58 48 Resp 24 24 B/P (MAP) 157/83 (107) 146/72 (96) Pulse Ox 98 100 99 O2 Delivery Ventilator Ventilator Mechanical Ventilator Ventilator 02/04/20 02/04/20 02/04/20 02/04/20 13:00 14:00 15:00 15:52 Pulse 54 61 68 Resp 24 24 24 B/P (MAP) 133/69 (90) 132/67 (88) 138/66 (90) Pulse Ox 98 100 99 100 O2 Delivery Ventilator Ventilator Ventilator Ventilator 02/04/20 02/04/20 02/04/20 02/04/20 16:00 16:00 17:00 18:00 Temp 98.8 98.8 Pulse 60 58 72 Resp 24 24 24 B/P (MAP) 124/64 (84) 112/73 (86) 110/55 (73) Pulse Ox 100 97 92 O2 Delivery Mechanical Ventilator Ventilator Ventilator Ventilator 02/04/20 02/04/20 02/04/20 02/04/20 18:14 19:00 20:00 20:00 Temp 98.8 98.8 Pulse 58 57 Resp 24 24 B/P (MAP) 119/56 (77) 116/56 (76) Pulse Ox 100 98 97 O2 Delivery Ventilator Ventilator Ventilator Mechanical Ventilator 02/04/20 02/04/20 02/04/20 02/04/20 20:03 21:00 22:00 23:00 Pulse 54 47 47 Resp 24 24 24 B/P (MAP) 119/63 (81) 115/72 (86) 97/45 (62) Pulse Ox 100 98 93 92 O2 Delivery Ventilator Ventilator Ventilator Ventilator 02/04/20 02/05/20 02/05/20 02/05/20 23:49 00:00 00:00 01:00 Temp 98.6 98.6 Pulse 48 57 Resp 24 24 B/P (MAP) 108/52 (70) 124/66 (85) Pulse Ox 94 94 97 O2 Delivery Ventilator Mechanical Ventilator Ventilator Ventilator 02/05/20 02/05/20 02/05/20 02/05/20 02:00 03:00 03:55 04:00 Pulse 51 54 Resp 24 24 B/P (MAP) 129/64 (85) 119/58 (78) Pulse Ox 100 98 97 O2 Delivery Ventilator Ventilator Ventilator Mechanical Ventilator 02/05/20 02/05/20 02/05/20 02/05/20 04:00 05:00 06:00 07:00 Temp 99.0 99.0 Pulse 54 56 51 47 Resp 24 24 24 24 B/P (MAP) 121/56 (77) 102/51 (68) 91/45 (60) 91/40 (57) Pulse Ox 96 93 97 96 O2 Delivery Ventilator Ventilator Ventilator Ventilator 02/05/20 02/05/20 02/05/20 02/05/20 07:30 08:00 08:03 09:00 Temp 97.9 97.9 Pulse 52 64 Resp 24 30 B/P (MAP) 94/48 (63) 119/70 (86) Pulse Ox 95 95 92 O2 Delivery Ventilator Mechanical Ventilator Ventilator Ventilator 02/05/20 10:04 Pulse 75 Resp 24 B/P (MAP) 121/65 (83) Pulse Ox 94 O2 Delivery Ventilator Intake and Output 02/04/20 02/04/20 02/05/20 15:00 23:00 07:00 Intake Total 1025 ml 1479.95 ml 1761 ml Output Total 1550 ml 2925 ml 470 ml Balance -525 ml -1445.05 ml 1291 ml Justicifation of Admission Dx: Justifications for Admission: Justification of Admission Dx: Yes Respiratory Failure: Severe Resp Distress ANA ROBERT MD Feb 05, 2020 10:57
[2020-02-05 12:18] LABS: BASE EXCESS ABG 7 mmol/L (-3-3); HCO3 ABG 31 mmol/L (21-28); PCO2 ABG 42 mmHg (35-46); SAT O2 ABG 81 % (92-99)
[2020-02-05 12:24] LABS: FIO2 ABG 40; PO2 ABG 46 mmHg (75-108)
--- NOTE | 2020-02-05 12:50 | PDOC ---
PROGRESS NOTES Chief Complaint Chief Complaint Acute Hypoxic Respiratory Failure Secondary to COVID-19 and sepsis pneumonia multifocal pulmonary infiltrates.// follow-up to resolution. Morbid Obesity, BMI 44 HTN NORMOCYTIC ANEMIA severe protein-caloric malnutrition 35 MIN CC TIME The patient was evaluated during the global COVID-19 pandemic, and that diagnosis was suspected/considered upon their initial presentation. Their evaluation, treatment and testing was consistent with current guidelines for patients who present with complaints or symptoms that may be related to COVID- 19. History of Present Illness History of Present Illness Ms Hackett is a 44-year-old female, who had been having fever and shortness of breath for about a week or so. The patient had outpatient COVID-19 done through [facility] on 01/13/2020 and was informed of positive results on 01/14/2020, which was positive and because of more shortness of breath, she decided to come in. The patient is requiring significant oxygen support. The patient denies any nausea, vomiting or diarrhea. Denies any other complaints other than shortness of breath. 7/4: very awake ealier on 10 versed, and IV fent, doing well on vent, discussed with RT, going down no Fi02 to 65% 7/: weaning PEEP and oxygen a little, doing a little better, cont current 02/02: weaning slowly, no event, improving slowly Still on vent, awake, trying to self extubate. D/w pulm to stay on vent, BiPAP. WBC 16.7 COVID-19 CRITERIA: The patient was evaluated during the global COVID-19 pandemic, and that diagnosis was suspected/considered upon their initial presentation. Their evaluation, treatment and testing was consistent with current guidelines for patients who present with complaints or symptoms that may be related to COVID-19. Vitals Vitals Vital Signs Date Time Temp Pulse Resp B/P (MAP) Pulse Ox O2 Delivery O2 Flow Rate FiO2 02/05/20 12:08 Mechanical Ventilator 02/05/20 12:05 70 31 145/68 (93) 92 02/05/20 11:00 98.0 98.0 Physical Exam Physical Exam GENERAL: Orally intubated, on ventilator, eyes are open, + mitts in NAD HEENT: Pupils equal, disconjucated gaze, No conjunctival lesion, ETT, OGT NECK: Supple LUNGS: Diminished aeration bases HEART: S1, S2 regular, will 50s ABDOMEN: Obese, soft, + BS, no guarding : Vasquez EXTREMITIES: Generalized edema. SCDs, bilaterally SKIN: warm to touch. No signs of infection NEUROLOGIC: Unresponsive/sedated Right-sided CVC without signs of infection General: Other Heart: Regular rate Abdomen: Other Extremities: No cyanosis Skin: No breakdown Labs LABS Laboratory Tests Test 02/04/20 13:17 02/04/20 21:00 02/05/20 05:00 02/05/20 07:30 Heparin Anti-Xa Act, Unfractionated 0.29 IU/mL (0.30-0.70) 0.79 IU/mL (0.30-0.70) 0.69 IU/mL (0.30-0.70) Potassium Level 4.0 mmol/L (3.5-5.1) 4.0 mmol/L (3.5-5.1) Magnesium Level 1.9 mg/dL (1.8-2.4) White Blood Count 16.7 x10^3/uL (4.0-11.0) Red Blood Count 3.99 x10^6/uL (3.50-5.40) Hemoglobin 11.2 g/dL (12.0-15.5) Hematocrit 33.9 % (36.0-47.0) Mean Corpuscular Volume 85 fL (79-100) Mean Corpuscular Hemoglobin 28 pg (25-35) Mean Corpuscular Hemoglobin Concent 33 g/dL (31-37) Red Cell Distribution Width 17.1 % (11.5-14.5) Platelet Count 300 x10^3/uL (140-400) Sodium Level 140 mmol/L (136-145) Chloride Level 102 mmol/L (98-107) Carbon Dioxide Level 33 mmol/L (21-32) Anion Gap 5 (6-14) Blood Urea Nitrogen 23 mg/dL (7-20) Creatinine 0.7 mg/dL (0.6-1.0) Estimated GFR (Cockcroft-Gault) 90.9 BUN/Creatinine Ratio 33 (6-20) Glucose Level 106 mg/dL (70-99) Calcium Level 8.5 mg/dL (8.5-10.1) Total Bilirubin 0.3 mg/dL (0.2-1.0) Aspartate Amino Transf (AST/SGOT) 21 U/L (15-37) Alanine Aminotransferase (ALT/SGPT) 32 U/L (14-59) Alkaline Phosphatase 64 U/L (46-116) Total Protein 6.4 g/dL (6.4-8.2) Albumin 2.6 g/dL (3.4-5.0) Albumin/Globulin Ratio 0.7 (1.0-1.7) O2 Saturation 89 % (92-99) Arterial Blood pH 7.46 (7.35-7.45) Arterial Blood pCO2 at Patient Temp 46 mmHg (35-46) Arterial Blood pO2 at Patient Temp 61 mmHg (75-108) Arterial Blood HCO3 32 mmol/L (21-28) Arterial Blood Base Excess 8 mmol/L (-3-3) FiO2 40 Test 02/05/20 12:15 O2 Saturation 81 % (92-99) Arterial Blood pH 7.49 (7.35-7.45) Arterial Blood pCO2 at Patient Temp 42 mmHg (35-46) Arterial Blood pO2 at Patient Temp 46 mmHg (75-108) Arterial Blood HCO3 31 mmol/L (21-28) Arterial Blood Base Excess 7 mmol/L (-3-3) FiO2 40 Assessment and Plan Assessmemt and Plan Problems Medical Problems: (1) Pneumonia due to COVID-19 virus Status: Acute Comment Review of Relevant I have reviewed the following items stephon (where applicable) has been applied. Labs Laboratory Tests Test 02/04/20 05:45 02/04/20 08:15 02/04/20 13:17 02/04/20 21:00 Heparin Anti-Xa Act, Unfractionated 0.73 IU/mL (0.30-0.70) 0.29 IU/mL (0.30-0.70) 0.79 IU/mL (0.30-0.70) O2 Saturation 95 % (92-99) Arterial Blood pH 7.43 (7.35-7.45) Arterial Blood pCO2 at Patient Temp 41 mmHg (35-46) Arterial Blood pO2 at Patient Temp 78 mmHg (75-108) Arterial Blood HCO3 27 mmol/L (21-28) Arterial Blood Base Excess 2 mmol/L (-3-3) FiO2 60 Potassium Level 4.0 mmol/L (3.5-5.1) Magnesium Level 1.9 mg/dL (1.8-2.4) Test 02/05/20 05:00 02/05/20 07:30 02/05/20 12:15 White Blood Count 16.7 x10^3/uL (4.0-11.0) Red Blood Count 3.99 x10^6/uL (3.50-5.40) Hemoglobin 11.2 g/dL (12.0-15.5) Hematocrit 33.9 % (36.0-47.0) Mean Corpuscular Volume 85 fL (79-100) Mean Corpuscular Hemoglobin 28 pg (25-35) Mean Corpuscular Hemoglobin Concent 33 g/dL (31-37) Red Cell Distribution Width 17.1 % (11.5-14.5) Platelet Count 300 x10^3/uL (140-400) Heparin Anti-Xa Act, Unfractionated 0.69 IU/mL (0.30-0.70) Sodium Level 140 mmol/L (136-145) Potassium Level 4.0 mmol/L (3.5-5.1) Chloride Level 102 mmol/L (98-107) Carbon Dioxide Level 33 mmol/L (21-32) Anion Gap 5 (6-14) Blood Urea Nitrogen 23 mg/dL (7-20) Creatinine 0.7 mg/dL (0.6-1.0) Estimated GFR (Cockcroft-Gault) 90.9 BUN/Creatinine Ratio 33 (6-20) Glucose Level 106 mg/dL (70-99) Calcium Level 8.5 mg/dL (8.5-10.1) Total Bilirubin 0.3 mg/dL (0.2-1.0) Aspartate Amino Transf (AST/SGOT) 21 U/L (15-37) Alanine Aminotransferase (ALT/SGPT) 32 U/L (14-59) Alkaline Phosphatase 64 U/L (46-116) Total Protein 6.4 g/dL (6.4-8.2) Albumin 2.6 g/dL (3.4-5.0) Albumin/Globulin Ratio 0.7 (1.0-1.7) O2 Saturation 89 % (92-99) 81 % (92-99) Arterial Blood pH 7.46 (7.35-7.45) 7.49 (7.35-7.45) Arterial Blood pCO2 at Patient Temp 46 mmHg (35-46) 42 mmHg (35-46) Arterial Blood pO2 at Patient Temp 61 mmHg (75-108) 46 mmHg (75-108) Arterial Blood HCO3 32 mmol/L (21-28) 31 mmol/L (21-28) Arterial Blood Base Excess 8 mmol/L (-3-3) 7 mmol/L (-3-3) FiO2 40 40 Laboratory Tests Test 02/04/20 13:17 02/04/20 21:00 02/05/20 05:00 02/05/20 07:30 Heparin Anti-Xa Act, Unfractionated 0.29 IU/mL (0.30-0.70) 0.79 IU/mL (0.30-0.70) 0.69 IU/mL (0.30-0.70) Potassium Level 4.0 mmol/L (3.5-5.1) 4.0 mmol/L (3.5-5.1) Magnesium Level 1.9 mg/dL (1.8-2.4) White Blood Count 16.7 x10^3/uL (4.0-11.0) Red Blood Count 3.99 x10^6/uL (3.50-5.40) Hemoglobin 11.2 g/dL (12.0-15.5) Hematocrit 33.9 % (36.0-47.0) Mean Corpuscular Volume 85 fL (79-100) Mean Corpuscular Hemoglobin 28 pg (25-35) Mean Corpuscular Hemoglobin Concent 33 g/dL (31-37) Red Cell Distribution Width 17.1 % (11.5-14.5) Platelet Count 300 x10^3/uL (140-400) Sodium Level 140 mmol/L (136-145) Chloride Level 102 mmol/L (98-107) Carbon Dioxide Level 33 mmol/L (21-32) Anion Gap 5 (6-14) Blood Urea Nitrogen 23 mg/dL (7-20) Creatinine 0.7 mg/dL (0.6-1.0) Estimated GFR (Cockcroft-Gault) 90.9 BUN/Creatinine Ratio 33 (6-20) Glucose Level 106 mg/dL (70-99) Calcium Level 8.5 mg/dL (8.5-10.1) Total Bilirubin 0.3 mg/dL (0.2-1.0) Aspartate Amino Transf (AST/SGOT) 21 U/L (15-37) Alanine Aminotransferase (ALT/SGPT) 32 U/L (14-59) Alkaline Phosphatase 64 U/L (46-116) Total Protein 6.4 g/dL (6.4-8.2) Albumin 2.6 g/dL (3.4-5.0) Albumin/Globulin Ratio 0.7 (1.0-1.7) O2 Saturation 89 % (92-99) Arterial Blood pH 7.46 (7.35-7.45) Arterial Blood pCO2 at Patient Temp 46 mmHg (35-46) Arterial Blood pO2 at Patient Temp 61 mmHg (75-108) Arterial Blood HCO3 32 mmol/L (21-28) Arterial Blood Base Excess 8 mmol/L (-3-3) FiO2 40 Test 02/05/20 12:15 O2 Saturation 81 % (92-99) Arterial Blood pH 7.49 (7.35-7.45) Arterial Blood pCO2 at Patient Temp 42 mmHg (35-46) Arterial Blood pO2 at Patient Temp 46 mmHg (75-108) Arterial Blood HCO3 31 mmol/L (21-28) Arterial Blood Base Excess 7 mmol/L (-3-3) FiO2 40 Medications Current Medications Acetaminophen (Tylenol) 1,000 mg 1X ONCE PO Last administered on 01/21/20at 17:00; Start 01/21/20 at 17:00; Stop 01/21/20 at 17:01; Status DC Ondansetron HCl (Zofran) 4 mg PRN Q8HRS PRN IV NAUSEA/VOMITING; Start 01/21/20 at 18:00; Stop 01/22/20 at 07:55; Status DC Dexamethasone Sodium Phosphate (Decadron) 6 mg 1X ONCE IVP Last administered on 01/21/20at 18:14; Start 01/21/20 at 18:00; Stop 01/21/20 at 18:01; Status DC Ceftriaxone Sodium (Rocephin) 1 gm 1X ONCE IVP Last administered on 01/21/20at 18:14; Start 01/21/20 at 18:00; Stop 01/21/20 at 18:01; Status DC Azithromycin 500 mg/Sodium Chloride 250 ml @ 250 mls/hr Q24H IV Last administered on 01/25/20 19:00; Start 01/22/20 at 19:00; Stop 01/26/20 at 09:05; Status DC Azithromycin 250 ml @ 250 mls/hr 1X ONCE IV Last administered on 01/21/20at 18:25; Start 01/21/20 at 18:15; Stop 01/21/20 at 19:14; Status DC Dexamethasone Sodium Phosphate (Decadron) 6 mg DAILY IVP Last administered on 02/05/20at 07:56; Start 01/22/20 at 09:00 Ceftriaxone Sodium (Rocephin) 1 gm Q24H IVP Last administered on 01/29/20at 20:14; Start 01/22/20 at 20:00; Stop 01/30/20 at 16:07; Status DC Azithromycin 250 ml @ 250 mls/hr 1X ONCE IV ; Start 01/21/20 at 19:45; Stop 01/21/20 at 20:44; Status UNV Acetaminophen (Tylenol) 650 mg PRN Q6HRS PRN PO Headaches, Temp > 101.5' Last administered on 01/25/20at 20:45; Start 01/21/20 at 19:45 Ondansetron HCl (Zofran) 4 mg PRN Q6HRS PRN IVP NAUSEA/VOMITING; Start 01/21/20 at 19:45 Al Hydroxide/Mg Hydroxide (Mylanta Plus Xs) 30 ml PRN Q3HRS PRN PO HEARTBURN / GAS; Start 01/21/20 at 19:45 Famotidine (Pepcid) 20 mg BID PO Last administered on 02/05/20at 07:56; Start 01/21/20 at 21:00 Enoxaparin Sodium (Lovenox 40mg Syringe) 40 mg Q24H SQ Last administered on 01/21/20at 21:07; Start 01/21/20 at 20:00; Stop 01/22/20 at 10:45; Status DC Sodium Chloride (Normal Saline Flush) 3 ml QSHIFT PRN IV AFTER MEDS AND BLOOD DRAWS; Start 01/21/20 at 19:45 Senna/Docusate Sodium (Senna Plus) 1 tab BID PO Last administered on 02/05/20at 07:56; Start 01/21/20 at 21:00 Magnesium Hydroxide (Milk Of Magnesia) 2,400 mg PRN Q12HR PRN PO CONSTIPATION; Start 01/21/20 at 19:45 Sterile Water (WATER for RESP) 1,000 ml CONT PRN INH VIA VAPOTHERM DEVICE Last administered on 01/23/20at 12:46; Start 01/22/20 at 04:30; Stop 02/05/20 at 09:43; Status DC Lactobacillus Rhamnosus (Culturelle) 1 cap BID PO Last administered on 02/04/20at 07:15; Start 01/22/20 at 09:00; Stop 02/04/20 at 10:38; Status DC Non-Formulary Medication 1 ea/ Sodium Chloride 210 ml @ 420 mls/hr ONCE ONCE IV Last administered on 01/22/20at 10:44; Start 01/22/20 at 11:00; Stop 01/22/20 at 11:29; Status DC Non-Formulary Medication 1 ea/ Sodium Chloride 230 ml @ 460 mls/hr DAILY IV Last administered on 01/26/20at 09:58; Start 01/23/20 at 09:00; Stop 01/26/20 at 09:29; Status DC Enoxaparin Sodium (Lovenox 40mg Syringe) 40 mg BID SQ Last administered on 01/30/20at 20:39; Start 01/22/20 at 11:00; Stop 01/30/20 at 20:57; Status DC Lorazepam (Ativan Inj) 0.5 mg PRN Q4HRS PRN IVP ANXIETY / AGITATION; Start 01/23/20 at 21:00 Lorazepam (Ativan Inj) 0.05 mg 1X ONCE IVP Last administered on 01/23/20at 21:13; Start 01/23/20 at 21:15; Stop 01/23/20 at 21:31; Status DC Fentanyl Citrate 30 ml @ 0 mls/hr CONT PRN IV SEE PROTOCOL Last administered on 02/01/20at 21:15; Start 01/23/20 at 22:45; Stop 02/02/20 at 02:27; Status DC Propofol 100 ml @ 0 mls/hr CONT PRN IV SEE PROTOCOL Last administered on 02/05/20at 09:21; Start 01/23/20 at 22:45 Midazolam HCl 100 ml @ 0 mls/hr CONT PRN IV SEE PROTOCOL Last administered on 02/04/20at 01:57; Start 01/23/20 at 22:45 Vecuronium [place] (Norcuron Bolus) 10 mg STK-MED ONCE IV ; Start 01/23/20 at 23:24; Stop 01/23/20 at 23:25; Status DC Vecuronium [place] (Norcuron Bolus) 60 mg 1X ONCE IV Last administered on 01/23/20at 23:30; Start 01/23/20 at 23:30; Stop 01/23/20 at 23:35; Status DC Norepinephrine Bitartrate 8 mg/ Dextrose 258 ml @ 20.666 mls/ hr CONT PRN IV PER PROTOCOL Last administered on 01/24/20at 12:28; Start 01/24/20 at 02:15 Vecuronium [place] (Norcuron Bolus) 6 mg PRN Q4HRS PRN IV SEDATION Last administered on 01/24/20at 15:40; Start 01/24/20 at 04:30 Succinylcholine Chloride (Anectine) 200 mg STK-MED ONCE .ROUTE ; Start 01/23/20 at 23:00; Stop 01/24/20 at 08:24; Status DC Etomidate (Amidate) 20 mg STK-MED ONCE IV ; Start 01/23/20 at 23:00; Stop 01/24/20 at 08:24; Status DC Ringer's Solution 1,000 ml @ 75 mls/hr [id number] IV Last administered on 01/25/20at 16:21; Start 01/24/20 at 12:30; Stop 01/26/20 at 09:17; Status DC Hydralazine HCl (Apresoline Inj) 10 mg PRN Q4HRS PRN IVP ELEVATED BP, SEE COMMENTS; Start 01/28/20 at 14:00 Heparin Sodium/ Dextrose 250 ml @ 17.6 mls/hr CONT PRN IV PER PROTOCOL Last administered on 02/05/20at 01:58; Start 01/30/20 at 21:00 Heparin Sodium (Porcine) (Heparin Sodium) 3,300 unit PRN Q6HRS PRN IV FOR UFH LEVEL LESS THAN 0.2; Start 01/30/20 at 21:00 Heparin Sodium (Porcine) (Heparin Sodium) 1,650 unit PRN Q6HRS PRN IV FOR UFH LEVEL 0.2 - 0.29 Last administered on 02/04/20at 15:13; Start 01/30/20 at 21:00 Heparin Sodium (Porcine) (Heparin Sodium) 8,700 unit 1X ONCE IV Last administered on 01/31/20 08:20; Start 01/31/20 at 07:15; Stop 01/31/20 at 07:16; Status DC Fentanyl Citrate 55 ml @ 0 mls/hr CONT PRN PRN IV PAIN/SEDATION Last administered on 02/05/20at 02:06; Start 02/02/20 at 02:30 Nystatin (Nystatin Oral Susp) 5 ml BID SWSW Last administered on 02/05/20 07:56; Start 02/02/20 at 09:00 Furosemide (Lasix) 40 mg 1X ONCE IVP Last administered on 02/04/20at 17:12; Start 02/04/20 at 16:00; Stop 02/04/20 at 16:01; Status DC Dexmedetomidine HCl 400 mcg/ Sodium Chloride 100 ml @ 0 mls/hr CONT PRN IV SEE COMMENTS Last administered on 02/05/20at 07:57; Start 02/05/20 at 07:30 Sodium Chloride 500 ml @ 500 mls/hr 1X PRN PRN IV ANXIETY / AGITATION; Start 02/05/20 at 07:30 Atropine Sulfate (ATROPINE 0.5mg SYRINGE) 0.5 mg PRN Q5MIN PRN IV SEE COMMENTS; Start 02/05/20 at 07:30 Info (Anti-Coagulation Monitoring By Pharmacy) 1 each PRN DAILY PRN MC SEE COMMENTS Last administered on 02/05/20at 09:39; Start 02/05/20 at 07:45 Active Scripts Active Keflex (Cephalexin) 500 Mg Capsule 500 Mg PO QID 10 Days [place] 5-325 Tablet (Acetaminophen/Hydrocodone Bitart) 1 Each Tablet 1 Tab PO PRN Q6HRS PRN Vitals/I & O Vital Sign - Last 24 Hours 02/04/20 02/04/20 02/04/20 02/04/20 13:00 14:00 15:00 15:52 Pulse 54 61 68 Resp 24 24 24 B/P (MAP) 133/69 (90) 132/67 (88) 138/66 (90) Pulse Ox 98 100 99 100 O2 Delivery Ventilator Ventilator Ventilator Ventilator 702/04/20 02/04/20 02/04/20 16:00 16:00 17:00 18:00 Temp 98.8 98.8 Pulse 60 58 72 Resp 24 24 24 B/P (MAP) 124/64 (84) 112/73 (86) 110/55 (73) Pulse Ox 100 97 92 O2 Delivery Mechanical Ventilator Ventilator Ventilator Ventilator 02/04/20 02/04/20 02/04/20 02/04/20 18:14 19:00 20:00 20:00 Temp 98.8 98.8 Pulse 58 57 Resp 24 24 B/P (MAP) 119/56 (77) 116/56 (76) Pulse Ox 100 98 97 O2 Delivery Ventilator Ventilator Ventilator Mechanical Ventilator 02/04/20 02/04/20 02/04/20 02/04/20 20:03 21:00 22:00 23:00 Pulse 54 47 47 Resp 24 24 B/P (MAP) 119/63 (81) 115/72 (86) 97/45 (62) Pulse Ox 100 98 93 92 O2 Delivery Ventilator Ventilator Ventilator Ventilator 02/04/20 02/05/20 02/05/20 02/05/20 23:49 00:00 00:00 01:00 Temp 98.6 98.6 Pulse 48 57 Resp 24 B/P (MAP) 108/52 (70) 124/66 (85) Pulse Ox 94 94 97 O2 Delivery Ventilator Mechanical Ventilator Ventilator Ventilator 02/05/20 02/05/20 02/05/20 02/05/20 02:00 03:00 03:55 04:00 Pulse 51 54 Resp 24 B/P (MAP) 129/64 (85) 119/58 (78) Pulse Ox 100 98 97 O2 Delivery Ventilator Ventilator Ventilator Mechanical Ventilator 02/05/20 02/05/20 02/05/20 02/05/20 04:00 05:00 06:00 07:00 Temp 99.0 99.0 Pulse 54 56 51 47 Resp 24 24 24 24 B/P (MAP) 121/56 (77) 102/51 (68) 91/45 (60) 91/40 (57) Pulse Ox 96 93 97 96 O2 Delivery Ventilator Ventilator Ventilator Ventilator 02/05/20 02/05/20 02/05/20 02/05/20 07:30 08:00 08:03 09:00 Temp 97.9 97.9 Pulse 52 64 Resp 24 30 B/P (MAP) 94/48 (63) 119/70 (86) Pulse Ox 95 95 92 O2 Delivery Ventilator Mechanical Ventilator Ventilator Ventilator 02/05/20 02/05/20 02/05/20 02/05/20 10:04 11:00 11:23 12:05 Temp 98.0 98.0 Pulse 75 63 70 Resp 24 24 31 B/P (MAP) 121/65 (83) 114/66 (82) 145/68 (93) Pulse Ox 94 95 97 92 O2 Delivery Ventilator Ventilator Ventilator Ventilator 02/05/20 12:08 O2 Delivery Mechanical Ventilator Intake and Output 02/04/20 02/04/20 02/05/20 15:00 23:00 07:00 Intake Total 1025 ml 1479.95 ml 1761 ml Output Total 1550 ml 2925 ml 470 ml Balance -525 ml -1445.05 ml 1291 ml Justicifation of Admission Dx: Justifications for Admission: Justification of Admission Dx: Yes Respiratory Failure: Severe Resp Distress THA NOBLE MD Feb 05, 2020 12:50
--- NOTE | 2020-02-05 12:50 | NUR ---
Placed patient of CPAP trial 1130 this morning. HOA Mei ABG results and ordered for patient to remain of current PS settings for today, if need to resedate during the night and possible extubate tomorrow, 02/06/20. Addendum: 02/05/20 at 1644 by TERE LOPEZ RN Patient became agitated, trying to pull ET out, hitting and kicking. BP increased, HR increase, RR increased. Respiratory RN returned vent settings to AC and this RN administered sedation. Patient is RASS -3.
--- NOTE | 2020-02-05 13:54 | NUR ---
SS following up with discharge planning. SS reviewed pt chart and discussed with pt RN. Pt self pay. Pt remains on the vent at this time. Possible extubation tomorrow. Pt COVID19 positive. SS will continue to follow for discharge planning.
[2020-02-05 20:33] LABS: BASO # 0.1 x10^3/uL (0.0-0.2); BASO % 0 % (0-3); EOS % 0 % (0-3); HEMATOCRIT 35.3 % (36.0-47.0); HEMOGLOBIN 11.9 g/dL (12.0-15.5); LYMPH # 1.2 x10^3/uL (1.0-4.8); LYMPH % 9 % (24-48); MEAN CORPUSCULAR HEMOGLOBIN 29 pg (25-35); MEAN CORPUSCULAR HGB CONC 34 g/dL (31-37); MEAN CORPUSCULAR VOLUME 85 fL (79-100); MONO # 0.9 x10^3/uL (0.0-1.1); MONO % 7 % (0-9); NEUT # 11.3 x10^3/uL (1.8-7.7); NEUT % 84 % (31-73); PLATELET COUNT 315 x10^3/uL (140-400); RED BLOOD COUNT 4.18 x10^6/uL (3.50-5.40); RED CELL DISTRIBUTION WIDTH 17.1 % (11.5-14.5); WHITE BLOOD COUNT 13.6 x10^3/uL (4.0-11.0)
[2020-02-05] MEDS: FAMOTIDINE 20 MG/2 ML VIAL IVP SCH (21:01)
[2020-02-06] VITALS (24 sets, daily range): BP systolic 85–144; BP diastolic 37–81
[2020-02-06] MEDS: PROPOFOL 100 ML IV PRN ×2 (01:03→04:59)
[2020-02-06 02:40] LABS: BASO # 0.1 x10^3/uL (0.0-0.2); BASO % 1 % (0-3); EOS # 0.1 x10^3/uL (0.0-0.7); EOS % 1 % (0-3); HEMATOCRIT 33.5 % (36.0-47.0); HEMOGLOBIN 11.1 g/dL (12.0-15.5); LYMPH % 14 % (24-48); MEAN CORPUSCULAR HEMOGLOBIN 28 pg (25-35); MEAN CORPUSCULAR HGB CONC 33 g/dL (31-37); MEAN CORPUSCULAR VOLUME 85 fL (79-100); MONO # 0.9 x10^3/uL (0.0-1.1); MONO % 7 % (0-9); NEUT # 11.1 x10^3/uL (1.8-7.7); NEUT % 78 % (31-73); PLATELET COUNT 309 x10^3/uL (140-400); RED BLOOD COUNT 3.93 x10^6/uL (3.50-5.40); WHITE BLOOD COUNT 14.2 x10^3/uL (4.0-11.0)
[2020-02-06] MEDS: DEXMEDETOMIDINE 400 MCG in IV NORMAL SALINE 100ML 96 ML IV PRN ×2 (03:27→09:08)
[2020-02-06 06:04] LABS: ALBUMIN 2.5 g/dL (3.4-5.0); ALBUMIN/GLOBULIN RATIO 0.6 (1.0-1.7); CALCIUM 7.9 mg/dL (8.5-10.1); CREATININE 0.7 mg/dL (0.6-1.0); GFR 90.9; TOTAL BILIRUBIN 0.4 mg/dL (0.2-1.0); TOTAL PROTEIN 6.4 g/dL (6.4-8.2)
--- NOTE | 2020-02-06 08:23 | PDOC ---
PROGRESS NOTES Chief Complaint Chief Complaint Acute Hypoxic Respiratory Failure Secondary to COVID-19 and sepsis pneumonia multifocal pulmonary infiltrates.// follow-up to resolution. Morbid Obesity, BMI 44 HTN NORMOCYTIC ANEMIA severe protein-caloric malnutrition 35 MIN CC TIME The patient was evaluated during the global COVID-19 pandemic, and that diagnosis was suspected/considered upon their initial presentation. Their evaluation, treatment and testing was consistent with current guidelines for patients who present with complaints or symptoms that may be related to COVID- 19. History of Present Illness History of Present Illness Ms Hackett is a 44-year-old female, who had been having fever and shortness of breath for about a week or so. The patient had outpatient COVID-19 done through [facility] on 01/13/2020 and was informed of positive results on 01/14/2020, which was positive and because of more shortness of breath, she decided to come in. The patient is requiring significant oxygen support. The patient denies any nausea, vomiting or diarrhea. Denies any other complaints other than shortness of breath. 7/4: very awake ealier on 10 versed, and IV fent, doing well on vent, discussed with RT, going down no Fi02 to 65% 7/5: weaning PEEP and oxygen a little, doing a little better, cont current 76: weaning slowly, no event, improving slowly 7/8: Still on vent, awake, trying to self extubate. D/w pulm to stay on vent, BiPAP. WBC 16.7 WBC down to 14.2, afebrile heart rate in 40s comfortable on vent overnight. When sedation was weaned she almost self extubated. ABG 7. 50/39/66 on 50% FiO2 PEEP of 5. COVID-19 CRITERIA: The patient was evaluated during the global COVID-19 pandemic, and that diagnosis was suspected/considered upon their initial presentation. Their evaluation, treatment and testing was consistent with current guidelines for patients who present with complaints or symptoms that may be related to COVID-19. Vitals Vitals Vital Signs Date Time Temp Pulse Resp B/P (MAP) Pulse Ox O2 Delivery O2 Flow Rate FiO2 02/06/20 07:31 41 24 101/48 (65) 99 Ventilator 02/06/20 04:00 99.0 99.0 Physical Exam Physical Exam GENERAL: Orally intubated, on ventilator, eyes are open, + mitts in NAD HEENT: Pupils equal, disconjucated gaze, No conjunctival lesion, ETT, OGT NECK: Supple LUNGS: Diminished aeration bases HEART: S1, S2 regular, will 50s ABDOMEN: Obese, soft, + BS, no guarding : Vasquez EXTREMITIES: Generalized edema. SCDs, bilaterally SKIN: warm to touch. No signs of infection NEUROLOGIC: Unresponsive/sedated Right-sided CVC without signs of infection General: Other Heart: Regular rate Abdomen: Other Extremities: No cyanosis Skin: No breakdown Labs LABS Laboratory Tests Test 02/05/20 12:15 02/05/20 12:40 02/05/20 20:20 02/06/20 02:20 O2 Saturation 81 % (92-99) Arterial Blood pH 7.49 (7.35-7.45) Arterial Blood pCO2 at Patient Temp 42 mmHg (35-46) Arterial Blood pO2 at Patient Temp 46 mmHg (75-108) Arterial Blood HCO3 31 mmol/L (21-28) Arterial Blood Base Excess 7 mmol/L (-3-3) FiO2 40 Heparin Anti-Xa Act, Unfractionated 0.47 IU/mL (0.30-0.70) White Blood Count 13.6 x10^3/uL (4.0-11.0) 14.2 x10^3/uL (4.0-11.0) Red Blood Count 4.18 x10^6/uL (3.50-5.40) 3.93 x10^6/uL (3.50-5.40) Hemoglobin 11.9 g/dL (12.0-15.5) 11.1 g/dL (12.0-15.5) Hematocrit 35.3 % (36.0-47.0) 33.5 % (36.0-47.0) Mean Corpuscular Volume 85 fL (79-100) 85 fL (79-100) Mean Corpuscular Hemoglobin 29 pg (25-35) 28 pg (25-35) Mean Corpuscular Hemoglobin Concent 34 g/dL (31-37) 33 g/dL (31-37) Red Cell Distribution Width 17.1 % (11.5-14.5) 17.0 % (11.5-14.5) Platelet Count 315 x10^3/uL (140-400) 309 x10^3/uL (140-400) Neutrophils (%) (Auto) 84 % (31-73) 78 % (31-73) Lymphocytes (%) (Auto) 9 % (24-48) 14 % (24-48) Monocytes (%) (Auto) 7 % (0-9) 7 % (0-9) Eosinophils (%) (Auto) 0 % (0-3) 1 % (0-3) Basophils (%) (Auto) 0 % (0-3) 1 % (0-3) Neutrophils # (Auto) 11.3 x10^3/uL (1.8-7.7) 11.1 x10^3/uL (1.8-7.7) Lymphocytes # (Auto) 1.2 x10^3/uL (1.0-4.8) 2.0 x10^3/uL (1.0-4.8) Monocytes # (Auto) 0.9 x10^3/uL (0.0-1.1) 0.9 x10^3/uL (0.0-1.1) Eosinophils # (Auto) 0.0 x10^3/uL (0.0-0.7) 0.1 x10^3/uL (0.0-0.7) Basophils # (Auto) 0.1 x10^3/uL (0.0-0.2) 0.1 x10^3/uL (0.0-0.2) Test 02/06/20 05:30 02/06/20 07:35 Sodium Level 143 mmol/L (136-145) Potassium Level 4.0 mmol/L (3.5-5.1) Chloride Level 105 mmol/L (98-107) Carbon Dioxide Level 32 mmol/L (21-32) Anion Gap 6 (6-14) Blood Urea Nitrogen 28 mg/dL (7-20) Creatinine 0.7 mg/dL (0.6-1.0) Estimated GFR (Cockcroft-Gault) 90.9 BUN/Creatinine Ratio 40 (6-20) Glucose Level 129 mg/dL (70-99) Calcium Level 7.9 mg/dL (8.5-10.1) Total Bilirubin 0.4 mg/dL (0.2-1.0) Aspartate Amino Transf (AST/SGOT) 29 U/L (15-37) Alanine Aminotransferase (ALT/SGPT) 36 U/L (14-59) Alkaline Phosphatase 55 U/L (46-116) Total Protein 6.4 g/dL (6.4-8.2) Albumin 2.5 g/dL (3.4-5.0) Albumin/Globulin Ratio 0.6 (1.0-1.7) O2 Saturation 87 % (92-99) Arterial Blood pH 7.51 (7.35-7.45) Arterial Blood pCO2 at Patient Temp 47 mmHg (35-46) Arterial Blood pO2 at Patient Temp 54 mmHg (75-108) Arterial Blood HCO3 36 mmol/L (21-28) Arterial Blood Base Excess 12 mmol/L (-3-3) FiO2 70% Assessment and Plan Assessmemt and Plan Problems Medical Problems: (1) Pneumonia due to COVID-19 virus Status: Acute Comment Review of Relevant I have reviewed the following items stephon (where applicable) has been applied. Labs Laboratory Tests Test 02/04/20 13:17 02/04/20 21:00 02/05/20 05:00 02/05/20 07:30 Heparin Anti-Xa Act, Unfractionated 0.29 IU/mL (0.30-0.70) 0.79 IU/mL (0.30-0.70) 0.69 IU/mL (0.30-0.70) Potassium Level 4.0 mmol/L (3.5-5.1) 4.0 mmol/L (3.5-5.1) Magnesium Level 1.9 mg/dL (1.8-2.4) White Blood Count 16.7 x10^3/uL (4.0-11.0) Red Blood Count 3.99 x10^6/uL (3.50-5.40) Hemoglobin 11.2 g/dL (12.0-15.5) Hematocrit 33.9 % (36.0-47.0) Mean Corpuscular Volume 85 fL (79-100) Mean Corpuscular Hemoglobin 28 pg (25-35) Mean Corpuscular Hemoglobin Concent 33 g/dL (31-37) Red Cell Distribution Width 17.1 % (11.5-14.5) Platelet Count 300 x10^3/uL (140-400) Sodium Level 140 mmol/L (136-145) Chloride Level 102 mmol/L (98-107) Carbon Dioxide Level 33 mmol/L (21-32) Anion Gap 5 (6-14) Blood Urea Nitrogen 23 mg/dL (7-20) Creatinine 0.7 mg/dL (0.6-1.0) Estimated GFR (Cockcroft-Gault) 90.9 BUN/Creatinine Ratio 33 (6-20) Glucose Level 106 mg/dL (70-99) Calcium Level 8.5 mg/dL (8.5-10.1) Total Bilirubin 0.3 mg/dL (0.2-1.0) Aspartate Amino Transf (AST/SGOT) 21 U/L (15-37) Alanine Aminotransferase (ALT/SGPT) 32 U/L (14-59) Alkaline Phosphatase 64 U/L (46-116) Total Protein 6.4 g/dL (6.4-8.2) Albumin 2.6 g/dL (3.4-5.0) Albumin/Globulin Ratio 0.7 (1.0-1.7) O2 Saturation 89 % (92-99) Arterial Blood pH 7.46 (7.35-7.45) Arterial Blood pCO2 at Patient Temp 46 mmHg (35-46) Arterial Blood pO2 at Patient Temp 61 mmHg (75-108) Arterial Blood HCO3 32 mmol/L (21-28) Arterial Blood Base Excess 8 mmol/L (-3-3) FiO2 40 Test 02/05/20 12:15 02/05/20 12:40 02/05/20 20:20 02/06/20 02:20 O2 Saturation 81 % (92-99) Arterial Blood pH 7.49 (7.35-7.45) Arterial Blood pCO2 at Patient Temp 42 mmHg (35-46) Arterial Blood pO2 at Patient Temp 46 mmHg (75-108) Arterial Blood HCO3 31 mmol/L (21-28) Arterial Blood Base Excess 7 mmol/L (-3-3) FiO2 40 Heparin Anti-Xa Act, Unfractionated 0.47 IU/mL (0.30-0.70) White Blood Count 13.6 x10^3/uL (4.0-11.0) 14.2 x10^3/uL (4.0-11.0) Red Blood Count 4.18 x10^6/uL (3.50-5.40) 3.93 x10^6/uL (3.50-5.40) Hemoglobin 11.9 g/dL (12.0-15.5) 11.1 g/dL (12.0-15.5) Hematocrit 35.3 % (36.0-47.0) 33.5 % (36.0-47.0) Mean Corpuscular Volume 85 fL (79-100) 85 fL (79-100) Mean Corpuscular Hemoglobin 29 pg (25-35) 28 pg (25-35) Mean Corpuscular Hemoglobin Concent 34 g/dL (31-37) 33 g/dL (31-37) Red Cell Distribution Width 17.1 % (11.5-14.5) 17.0 % (11.5-14.5) Platelet Count 315 x10^3/uL (140-400) 309 x10^3/uL (140-400) Neutrophils (%) (Auto) 84 % (31-73) 78 % (31-73) Lymphocytes (%) (Auto) 9 % (24-48) 14 % (24-48) Monocytes (%) (Auto) 7 % (0-9) 7 % (0-9) Eosinophils (%) (Auto) 0 % (0-3) 1 % (0-3) Basophils (%) (Auto) 0 % (0-3) 1 % (0-3) Neutrophils # (Auto) 11.3 x10^3/uL (1.8-7.7) 11.1 x10^3/uL (1.8-7.7) Lymphocytes # (Auto) 1.2 x10^3/uL (1.0-4.8) 2.0 x10^3/uL (1.0-4.8) Monocytes # (Auto) 0.9 x10^3/uL (0.0-1.1) 0.9 x10^3/uL (0.0-1.1) Eosinophils # (Auto) 0.0 x10^3/uL (0.0-0.7) 0.1 x10^3/uL (0.0-0.7) Basophils # (Auto) 0.1 x10^3/uL (0.0-0.2) 0.1 x10^3/uL (0.0-0.2) Test 02/06/20 05:30 02/06/20 07:35 Sodium Level 143 mmol/L (136-145) Potassium Level 4.0 mmol/L (3.5-5.1) Chloride Level 105 mmol/L (98-107) Carbon Dioxide Level 32 mmol/L (21-32) Anion Gap 6 (6-14) Blood Urea Nitrogen 28 mg/dL (7-20) Creatinine 0.7 mg/dL (0.6-1.0) Estimated GFR (Cockcroft-Gault) 90.9 BUN/Creatinine Ratio 40 (6-20) Glucose Level 129 mg/dL (70-99) Calcium Level 7.9 mg/dL (8.5-10.1) Total Bilirubin 0.4 mg/dL (0.2-1.0) Aspartate Amino Transf (AST/SGOT) 29 U/L (15-37) Alanine Aminotransferase (ALT/SGPT) 36 U/L (14-59) Alkaline Phosphatase 55 U/L (46-116) Total Protein 6.4 g/dL (6.4-8.2) Albumin 2.5 g/dL (3.4-5.0) Albumin/Globulin Ratio 0.6 (1.0-1.7) O2 Saturation 87 % (92-99) Arterial Blood pH 7.51 (7.35-7.45) Arterial Blood pCO2 at Patient Temp 47 mmHg (35-46) Arterial Blood pO2 at Patient Temp 54 mmHg (75-108) Arterial Blood HCO3 36 mmol/L (21-28) Arterial Blood Base Excess 12 mmol/L (-3-3) FiO2 70% Laboratory Tests Test 02/05/20 12:15 02/05/20 12:40 02/05/20 20:20 02/06/20 02:20 O2 Saturation 81 % (92-99) Arterial Blood pH 7.49 (7.35-7.45) Arterial Blood pCO2 at Patient Temp 42 mmHg (35-46) Arterial Blood pO2 at Patient Temp 46 mmHg (75-108) Arterial Blood HCO3 31 mmol/L (21-28) Arterial Blood Base Excess 7 mmol/L (-3-3) FiO2 40 Heparin Anti-Xa Act, Unfractionated 0.47 IU/mL (0.30-0.70) White Blood Count 13.6 x10^3/uL (4.0-11.0) 14.2 x10^3/uL (4.0-11.0) Red Blood Count 4.18 x10^6/uL (3.50-5.40) 3.93 x10^6/uL (3.50-5.40) Hemoglobin 11.9 g/dL (12.0-15.5) 11.1 g/dL (12.0-15.5) Hematocrit 35.3 % (36.0-47.0) 33.5 % (36.0-47.0) Mean Corpuscular Volume 85 fL (79-100) 85 fL (79-100) Mean Corpuscular Hemoglobin 29 pg (25-35) 28 pg (25-35) Mean Corpuscular Hemoglobin Concent 34 g/dL (31-37) 33 g/dL (31-37) Red Cell Distribution Width 17.1 % (11.5-14.5) 17.0 % (11.5-14.5) Platelet Count 315 x10^3/uL (140-400) 309 x10^3/uL (140-400) Neutrophils (%) (Auto) 84 % (31-73) 78 % (31-73) Lymphocytes (%) (Auto) 9 % (24-48) 14 % (24-48) Monocytes (%) (Auto) 7 % (0-9) 7 % (0-9) Eosinophils (%) (Auto) 0 % (0-3) 1 % (0-3) Basophils (%) (Auto) 0 % (0-3) 1 % (0-3) Neutrophils # (Auto) 11.3 x10^3/uL (1.8-7.7) 11.1 x10^3/uL (1.8-7.7) Lymphocytes # (Auto) 1.2 x10^3/uL (1.0-4.8) 2.0 x10^3/uL (1.0-4.8) Monocytes # (Auto) 0.9 x10^3/uL (0.0-1.1) 0.9 x10^3/uL (0.0-1.1) Eosinophils # (Auto) 0.0 x10^3/uL (0.0-0.7) 0.1 x10^3/uL (0.0-0.7) Basophils # (Auto) 0.1 x10^3/uL (0.0-0.2) 0.1 x10^3/uL (0.0-0.2) Test 02/06/20 05:30 02/06/20 07:35 Sodium Level 143 mmol/L (136-145) Potassium Level 4.0 mmol/L (3.5-5.1) Chloride Level 105 mmol/L (98-107) Carbon Dioxide Level 32 mmol/L (21-32) Anion Gap 6 (6-14) Blood Urea Nitrogen 28 mg/dL (7-20) Creatinine 0.7 mg/dL (0.6-1.0) Estimated GFR (Cockcroft-Gault) 90.9 BUN/Creatinine Ratio 40 (-20) Glucose Level 129 mg/dL (70-99) Calcium Level 7.9 mg/dL (8.5-10.1) Total Bilirubin 0.4 mg/dL (0.2-1.0) Aspartate Amino Transf (AST/SGOT) 29 U/L (15-37) Alanine Aminotransferase (ALT/SGPT) 36 U/L (14-59) Alkaline Phosphatase 55 U/L (46-116) Total Protein 6.4 g/dL (6.4-8.2) Albumin 2.5 g/dL (3.4-5.0) Albumin/Globulin Ratio 0.6 (1.0-1.7) O2 Saturation 87 % (92-99) Arterial Blood pH 7.51 (7.35-7.45) Arterial Blood pCO2 at Patient Temp 47 mmHg (35-46) Arterial Blood pO2 at Patient Temp 54 mmHg (75-108) Arterial Blood HCO3 36 mmol/L (21-28) Arterial Blood Base Excess 12 mmol/L (-3-3) FiO2 70% Medications Current Medications Acetaminophen (Tylenol) 1,000 mg 1X ONCE PO Last administered on 01/21/20at 17:00; Start 01/21/20 at 17:00; Stop 01/21/20 at 17:01; Status DC Ondansetron HCl (Zofran) 4 mg PRN Q8HRS PRN IV NAUSEA/VOMITING; Start 01/21/20 at 18:00; Stop 01/22/20 at 07:55; Status DC Dexamethasone Sodium Phosphate (Decadron) 6 mg 1X ONCE IVP Last administered on 01/21/20at 18:14; Start 01/21/20 at 18:00; Stop 01/21/20 at 18:01; Status DC Ceftriaxone Sodium (Rocephin) 1 gm 1X ONCE IVP Last administered on 01/21/20at 18:14; Start 01/21/20 at 18:00; Stop 01/21/20 at 18:01; Status DC Azithromycin 500 mg/Sodium Chloride 250 ml @ 250 mls/hr Q24H IV Last administered on 01/25/20at 19:00; Start 01/22/20 at 19:00; Stop 01/26/20 at 09:05; Status DC Azithromycin 250 ml @ 250 mls/hr 1X ONCE IV Last administered on 01/21/20at 18:25; Start 01/21/20 at 18:15; Stop 01/21/20 at 19:14; Status DC Dexamethasone Sodium Phosphate (Decadron) 6 mg DAILY IVP Last administered on 02/05/20at 07:56; Start 01/22/20 at 09:00 Ceftriaxone Sodium (Rocephin) 1 gm Q24H IVP Last administered on 01/29/20at 20:14; Start 01/22/20 at 20:00; Stop 01/30/20 at 16:07; Status DC Azithromycin 250 ml @ 250 mls/hr 1X ONCE IV ; Start 01/21/20 at 19:45; Stop 01/21/20 at 20:44; Status UNV Acetaminophen (Tylenol) 650 mg PRN Q6HRS PRN PO Headaches, Temp > 101.5' Last administered on 01/25/20at 20:45; Start 01/21/20 at 19:45 Ondansetron HCl (Zofran) 4 mg PRN Q6HRS PRN IVP NAUSEA/VOMITING; Start 01/21/20 at 19:45 Al Hydroxide/Mg Hydroxide (Mylanta Plus Xs) 30 ml PRN Q3HRS PRN PO HEARTBURN / GAS; Start 01/21/20 at 19:45 Famotidine (Pepcid) 20 mg BID PO Last administered on 02/05/20at 07:56; Start 01/21/20 at 21:00; Stop 02/05/20 at 20:05; Status DC Enoxaparin Sodium (Lovenox 40mg Syringe) 40 mg Q24H SQ Last administered on 01/21/20at 21:07; Start 01/21/20 at 20:00; Stop 01/22/20 at 10:45; Status DC Sodium Chloride (Normal Saline Flush) 3 ml QSHIFT PRN IV AFTER MEDS AND BLOOD DRAWS; Start 01/21/20 at 19:45 Senna/Docusate Sodium (Senna Plus) 1 tab BID PO Last administered on 02/05/20at 07:56; Start 01/21/20 at 21:00 Magnesium Hydroxide (Milk Of Magnesia) 2,400 mg PRN Q12HR PRN PO CONSTIPATION; Start 01/21/20 at 19:45 Sterile Water (WATER for RESP) 1,000 ml CONT PRN INH VIA VAPOTHERM DEVICE Last administered on 01/23/20at 12:46; Start 01/22/20 at 04:30; Stop 02/05/20 at 09:43; Status DC Lactobacillus Rhamnosus (Culturelle) 1 cap BID PO Last administered on 02/04/20at 07:15; Start 01/22/20 at 09:00; Stop 02/04/20 at 10:38; Status DC Non-Formulary Medication 1 ea/ Sodium Chloride 210 ml @ 420 mls/hr ONCE ONCE IV Last administered on 01/22/20at 10:44; Start 01/22/20 at 11:00; Stop 01/22/20 at 11:29; Status DC Non-Formulary Medication 1 ea/ Sodium Chloride 230 ml @ 460 mls/hr DAILY IV Last administered on 01/26/20at 09:58; Start 01/23/20 at 09:00; Stop 01/26/20 at 09:29; Status DC Enoxaparin Sodium (Lovenox 40mg Syringe) 40 mg BID SQ Last administered on 01/30/20at 20:39; Start 01/22/20 at 11:00; Stop 01/30/20 at 20:57; Status DC Lorazepam (Ativan Inj) 0.5 mg PRN Q4HRS PRN IVP ANXIETY / AGITATION; Start 01/23/20 at 21:00 Lorazepam (Ativan Inj) 0.05 mg 1X ONCE IVP Last administered on 01/23/20at 21:13; Start 01/23/20 at 21:15; Stop 01/23/20 at 21:31; Status DC Fentanyl Citrate 30 ml @ 0 mls/hr CONT PRN IV SEE PROTOCOL Last administered on 02/01/20at 21:15; Start 01/23/20 at 22:45; Stop 02/02/20 at 02:27; Status DC Propofol 100 ml @ 0 mls/hr CONT PRN IV SEE PROTOCOL Last administered on 02/06/20at 04:59; Start 01/23/20 at 22:45 Midazolam HCl 100 ml @ 0 mls/hr CONT PRN IV SEE PROTOCOL Last administered on 02/04/20at 01:57; Start 01/23/20 at 22:45 Vecuronium [place] (Norcuron Bolus) 10 mg STK-MED ONCE IV ; Start 01/23/20 at 23:24; Stop 01/23/20 at 23:25; Status DC Vecuronium [place] (Norcuron Bolus) 60 mg 1X ONCE IV Last administered on 01/23/20at 23:30; Start 01/23/20 at 23:30; Stop 01/23/20 at 23:35; Status DC Norepinephrine Bitartrate 8 mg/ Dextrose 258 ml @ 20.666 mls/ hr CONT PRN IV PER PROTOCOL Last administered on 01/24/20at 12:28; Start 01/24/20 at 02:15 Vecuronium [place] (Norcuron Bolus) 6 mg PRN Q4HRS PRN IV SEDATION Last administered on 01/24/20at 15:40; Start 01/24/20 at 04:30 Succinylcholine Chloride (Anectine) 200 mg STK-MED ONCE .ROUTE ; Start 01/23/20 at 23:00; Stop 01/24/20 at 08:24; Status DC Etomidate (Amidate) 20 mg STK-MED ONCE IV ; Start 01/23/20 at 23:00; Stop 01/24/20 at 08:24; Status DC Ringer's Solution 1,000 ml @ 75 mls/hr [id number] IV Last administered on 01/25/20at 16:21; Start 01/24/20 at 12:30; Stop 01/26/20 at 09:17; Status DC Hydralazine HCl (Apresoline Inj) 10 mg PRN Q4HRS PRN IVP ELEVATED BP, SEE COMMENTS; Start 01/28/20 at 14:00 Heparin Sodium/ Dextrose 250 ml @ 17.6 mls/hr CONT PRN IV PER PROTOCOL Last administered on 02/05/20at 01:58; Start 01/30/20 at 21:00; Stop 02/05/20 at 20:07; Status DC Heparin Sodium (Porcine) (Heparin Sodium) 3,300 unit PRN Q6HRS PRN IV FOR UFH LEVEL LESS THAN 0.2; Start 01/30/20 at 21:00 Heparin Sodium (Porcine) (Heparin Sodium) 1,650 unit PRN Q6HRS PRN IV FOR UFH LEVEL 0.2 - 0.29 Last administered on 02/04/20at 15:13; Start 01/30/20 at 21:00 Heparin Sodium (Porcine) (Heparin Sodium) 8,700 unit 1X ONCE IV Last adminis tered on 01/31/20at 08:20; Start 01/31/20 at 07:15; Stop 01/31/20 at 07:16; Status DC Fentanyl Citrate 55 ml @ 0 mls/hr CONT PRN PRN IV PAIN/SEDATION Last administered on 02/05/20at 02:06; Start 02/02/20 at 02:30 Nystatin (Nystatin Oral Susp) 5 ml BID SWSW Last administered on 02/05/20at 21:00; Start 02/02/20 at 09:00 Furosemide (Lasix) 40 mg 1X ONCE IVP Last administered on 02/04/20at 17:12; Start 02/04/20 at 16:00; Stop 02/04/20 at 16:01; Status DC Dexmedetomidine HCl 400 mcg/ Sodium Chloride 100 ml @ 0 mls/hr CONT PRN IV SEE COMMENTS Last administered on 02/06/20at 03:27; Start 02/05/20 at 07:30 Sodium Chloride 500 ml @ 500 mls/hr 1X PRN PRN IV ANXIETY / AGITATION; Start 02/05/20 at 07:30 Atropine Sulfate (ATROPINE 0.5mg SYRINGE) 0.5 mg PRN Q5MIN PRN IV SEE COMMENTS; Start 02/05/20 at 07:30 Info (Anti-Coagulation Monitoring By Pharmacy) 1 each PRN DAILY PRN MC SEE COMMENTS Last administered on 02/05/20at 09:39; Start 02/05/20 at 07:45 Famotidine (Pepcid Vial) 40 mg BID IVP Last administered on 02/05/20at 21:01; Start 02/05/20 at 21:00 Active Scripts Active Keflex (Cephalexin) 500 Mg Capsule 500 Mg PO QID 10 Days [place] 5-325 Tablet (Acetaminophen/Hydrocodone Bitart) 1 Each Tablet 1 Tab PO PRN Q6HRS PRN Vitals/I & O Vital Sign - Last 24 Hours 02/05/20 02/05/20 02/05/20 02/05/20 09:00 10:04 11:00 11:23 Temp 98.0 98.0 Pulse 64 75 63 Resp 30 24 24 B/P (MAP) 119/70 (86) 121/65 (83) 114/66 (82) Pulse Ox 92 94 95 97 O2 Delivery Ventilator Ventilator Ventilator Ventilator 02/05/20 02/05/20 02/05/20 02/05/20 11:30 12:05 12:08 13:02 Pulse 70 50 Resp 31 27 B/P (MAP) 145/68 (93) 156/68 (97) Pulse Ox 92 97 O2 Delivery Ventilator Ventilator Mechanical Ventilator Ventilator 02/05/20 02/05/20 02/05/20 02/05/20 14:15 14:56 15:47 16:00 Pulse 42 44 Resp 28 28 B/P (MAP) 183/54 (97) 163/82 (109) Pulse Ox 99 98 94 O2 Delivery Ventilator Ventilator Ventilator Ventilator 02/05/20 02/05/20 02/05/20 02/05/20 16:27 16:37 17:07 18:20 Temp 99.3 99.3 Pulse 45 46 46 Resp 24 24 24 B/P (MAP) 131/62 (85) 112/55 (74) 132/71 (91) Pulse Ox 97 99 99 O2 Delivery Ventilator Mechanical Ventilator Ventilator Ventilator 02/05/20 02/05/20 02/05/20 02/05/20 18:23 19:04 20:00 20:00 Temp 99.6 99.6 Pulse 42 48 Resp 24 24 B/P (MAP) 133/65 (87) 127/67 (87) Pulse Ox 97 99 99 O2 Delivery Ventilator Ventilator Ventilator Mechanical Ventilator 02/05/20 02/05/20 02/05/20 02/05/20 20:20 21:00 22:00 23:00 Pulse 48 50 52 Resp 24 24 28 B/P (MAP) 114/57 (76) 108/53 (71) 119/58 (78) Pulse Ox 97 99 97 95 O2 Delivery Ventilator Ventilator Ventilator Ventilator 02/05/20 02/05/20 02/06/20 02/06/20 23:45 23:50 00:00 01:00 Temp 98.6 98.6 Pulse 46 43 Resp 24 24 B/P (MAP) 105/53 (70) 100/52 (68) Pulse Ox 100 100 100 O2 Delivery Mechanical Ventilator Ventilator Ventilator Ventilator 02/06/20 02/06/20 02/06/20 02/06/20 02:00 03:00 04:00 04:00 Temp 99.0 99.0 Pulse 44 43 46 Resp 24 24 24 B/P (MAP) 99/51 (67) 102/51 (68) 94/46 (62) Pulse Ox 100 98 98 O2 Delivery Ventilator Ventilator Mechanical Ventilator Ventilator 02/06/20 02/06/20 02/06/20 02/06/20 04:33 05:00 06:00 07:31 Pulse 40 41 41 Resp 24 24 24 B/P (MAP) 108/54 (72) 107/46 (66) 101/48 (65) Pulse Ox 100 98 99 99 O2 Delivery Ventilator Ventilator Ventilator Ventilator Intake and Output 02/05/20 02/05/20 02/06/20 15:00 23:00 07:00 Intake Total 300 ml 721 ml 549 ml Output Total 2400 ml 1085 ml 265 ml Balance -2100 ml -364 ml 284 ml Justicifation of Admission Dx: Justifications for Admission: Justification of Admission Dx: Yes Respiratory Failure: Severe Resp Distress THA NOBLE MD Feb 06, 2020 08:23
--- NOTE | 2020-02-06 08:41 | PDOC ---
PULMONARY PROGRESS NOTES Subjective Patient did well this morning on trial, extubated 02/05 now confused Vitals Vital Signs Date Time Temp Pulse Resp B/P (MAP) Pulse Ox O2 Delivery O2 Flow Rate FiO2 02/06/20 08:09 98 Ventilator 02/06/20 07:31 41 24 101/48 (65) 02/06/20 04:00 99.0 99.0 Lungs: Clear Cardiovascular: S1, S2 Abdomen: Soft Extremities: Other (Edema) Labs Laboratory Tests Test 02/04/20 13:17 02/04/20 21:00 02/05/20 05:00 02/05/20 07:30 Heparin Anti-Xa Act, Unfractionated 0.29 IU/mL (0.30-0.70) 0.79 IU/mL (0.30-0.70) 0.69 IU/mL (0.30-0.70) Potassium Level 4.0 mmol/L (3.5-5.1) 4.0 mmol/L (3.5-5.1) Magnesium Level 1.9 mg/dL (1.8-2.4) White Blood Count 16.7 x10^3/uL (4.0-11.0) Red Blood Count 3.99 x10^6/uL (3.50-5.40) Hemoglobin 11.2 g/dL (12.0-15.5) Hematocrit 33.9 % (36.0-47.0) Mean Corpuscular Volume 85 fL (79-100) Mean Corpuscular Hemoglobin 28 pg (25-35) Mean Corpuscular Hemoglobin Concent 33 g/dL (31-37) Red Cell Distribution Width 17.1 % (11.5-14.5) Platelet Count 300 x10^3/uL (140-400) Sodium Level 140 mmol/L (136-145) Chloride Level 102 mmol/L (98-107) Carbon Dioxide Level 33 mmol/L (21-32) Anion Gap 5 (6-14) Blood Urea Nitrogen 23 mg/dL (7-20) Creatinine 0.7 mg/dL (0.6-1.0) Estimated GFR (Cockcroft-Gault) 90.9 BUN/Creatinine Ratio 33 (6-20) Glucose Level 106 mg/dL (70-99) Calcium Level 8.5 mg/dL (8.5-10.1) Total Bilirubin 0.3 mg/dL (0.2-1.0) Aspartate Amino Transf (AST/SGOT) 21 U/L (15-37) Alanine Aminotransferase (ALT/SGPT) 32 U/L (14-59) Alkaline Phosphatase 64 U/L (46-116) Total Protein 6.4 g/dL (6.4-8.2) Albumin 2.6 g/dL (3.4-5.0) Albumin/Globulin Ratio 0.7 (1.0-1.7) O2 Saturation 89 % (92-99) Arterial Blood pH 7.46 (7.35-7.45) Arterial Blood pCO2 at Patient Temp 46 mmHg (35-46) Arterial Blood pO2 at Patient Temp 61 mmHg (75-108) Arterial Blood HCO3 32 mmol/L (21-28) Arterial Blood Base Excess 8 mmol/L (-3-3) FiO2 40 Test 02/05/20 12:15 02/05/20 12:40 02/05/20 20:20 02/06/20 02:20 O2 Saturation 81 % (92-99) Arterial Blood pH 7.49 (7.35-7.45) Arterial Blood pCO2 at Patient Temp 42 mmHg (35-46) Arterial Blood pO2 at Patient Temp 46 mmHg (75-108) Arterial Blood HCO3 31 mmol/L (21-28) Arterial Blood Base Excess 7 mmol/L (-3-3) FiO2 40 Heparin Anti-Xa Act, Unfractionated 0.47 IU/mL (0.30-0.70) White Blood Count 13.6 x10^3/uL (4.0-11.0) 14.2 x10^3/uL (4.0-11.0) Red Blood Count 4.18 x10^6/uL (3.50-5.40) 3.93 x10^6/uL (3.50-5.40) Hemoglobin 11.9 g/dL (12.0-15.5) 11.1 g/dL (12.0-15.5) Hematocrit 35.3 % (36.0-47.0) 33.5 % (36.0-47.0) Mean Corpuscular Volume 85 fL (79-100) 85 fL (79-100) Mean Corpuscular Hemoglobin 29 pg (25-35) 28 pg (25-35) Mean Corpuscular Hemoglobin Concent 34 g/dL (31-37) 33 g/dL (31-37) Red Cell Distribution Width 17.1 % (11.5-14.5) 17.0 % (11.5-14.5) Platelet Count 315 x10^3/uL (140-400) 309 x10^3/uL (140-400) Neutrophils (%) (Auto) 84 % (31-73) 78 % (31-73) Lymphocytes (%) (Auto) 9 % (24-48) 14 % (24-48) Monocytes (%) (Auto) 7 % (0-9) 7 % (0-9) Eosinophils (%) (Auto) 0 % (0-3) 1 % (0-3) Basophils (%) (Auto) 0 % (0-3) 1 % (0-3) Neutrophils # (Auto) 11.3 x10^3/uL (1.8-7.7) 11.1 x10^3/uL (1.8-7.7) Lymphocytes # (Auto) 1.2 x10^3/uL (1.0-4.8) 2.0 x10^3/uL (1.0-4.8) Monocytes # (Auto) 0.9 x10^3/uL (0.0-1.1) 0.9 x10^3/uL (0.0-1.1) Eosinophils # (Auto) 0.0 x10^3/uL (0.0-0.7) 0.1 x10^3/uL (0.0-0.7) Basophils # (Auto) 0.1 x10^3/uL (0.0-0.2) 0.1 x10^3/uL (0.0-0.2) Test 02/06/20 05:30 02/06/20 07:35 Sodium Level 143 mmol/L (136-145) Potassium Level 4.0 mmol/L (3.5-5.1) Chloride Level 105 mmol/L (98-107) Carbon Dioxide Level 32 mmol/L (21-32) Anion Gap 6 (6-14) Blood Urea Nitrogen 28 mg/dL (7-20) Creatinine 0.7 mg/dL (0.6-1.0) Estimated GFR (Cockcroft-Gault) 90.9 BUN/Creatinine Ratio 40 (6-20) Glucose Level 129 mg/dL (70-99) Calcium Level 7.9 mg/dL (8.5-10.1) Total Bilirubin 0.4 mg/dL (0.2-1.0) Aspartate Amino Transf (AST/SGOT) 29 U/L (15-37) Alanine Aminotransferase (ALT/SGPT) 36 U/L (14-59) Alkaline Phosphatase 55 U/L (46-116) Total Protein 6.4 g/dL (6.4-8.2) Albumin 2.5 g/dL (3.4-5.0) Albumin/Globulin Ratio 0.6 (1.0-1.7) O2 Saturation 87 % (92-99) Arterial Blood pH 7.51 (7.35-7.45) Arterial Blood pCO2 at Patient Temp 47 mmHg (35-46) Arterial Blood pO2 at Patient Temp 54 mmHg (75-108) Arterial Blood HCO3 36 mmol/L (21-28) Arterial Blood Base Excess 12 mmol/L (-3-3) FiO2 70% Laboratory Tests Test 02/05/20 12:15 02/05/20 12:40 02/05/20 20:20 02/06/20 02:20 O2 Saturation 81 % (92-99) Arterial Blood pH 7.49 (7.35-7.45) Arterial Blood pCO2 at Patient Temp 42 mmHg (35-46) Arterial Blood pO2 at Patient Temp 46 mmHg (75-108) Arterial Blood HCO3 31 mmol/L (21-28) Arterial Blood Base Excess 7 mmol/L (-3-3) FiO2 40 Heparin Anti-Xa Act, Unfractionated 0.47 IU/mL (0.30-0.70) White Blood Count 13.6 x10^3/uL (4.0-11.0) 14.2 x10^3/uL (4.0-11.0) Red Blood Count 4.18 x10^6/uL (3.50-5.40) 3.93 x10^6/uL (3.50-5.40) Hemoglobin 11.9 g/dL (12.0-15.5) 11.1 g/dL (12.0-15.5) Hematocrit 35.3 % (36.0-47.0) 33.5 % (36.0-47.0) Mean Corpuscular Volume 85 fL (79-100) 85 fL (79-100) Mean Corpuscular Hemoglobin 29 pg (25-35) 28 pg (25-35) Mean Corpuscular Hemoglobin Concent 34 g/dL (31-37) 33 g/dL (31-37) Red Cell Distribution Width 17.1 % (11.5-14.5) 17.0 % (11.5-14.5) Platelet Count 315 x10^3/uL (140-400) 309 x10^3/uL (140-400) Neutrophils (%) (Auto) 84 % (31-73) 78 % (31-73) Lymphocytes (%) (Auto) 9 % (24-48) 14 % (24-48) Monocytes (%) (Auto) 7 % (0-9) 7 % (0-9) Eosinophils (%) (Auto) 0 % (0-3) 1 % (0-3) Basophils (%) (Auto) 0 % (0-3) 1 % (0-3) Neutrophils # (Auto) 11.3 x10^3/uL (1.8-7.7) 11.1 x10^3/uL (1.8-7.7) Lymphocytes # (Auto) 1.2 x10^3/uL (1.0-4.8) 2.0 x10^3/uL (1.0-4.8) Monocytes # (Auto) 0.9 x10^3/uL (0.0-1.1) 0.9 x10^3/uL (0.0-1.1) Eosinophils # (Auto) 0.0 x10^3/uL (0.0-0.7) 0.1 x10^3/uL (0.0-0.7) Basophils # (Auto) 0.1 x10^3/uL (0.0-0.2) 0.1 x10^3/uL (0.0-0.2) Test 02/06/20 05:30 02/06/20 07:35 Sodium Level 143 mmol/L (136-145) Potassium Level 4.0 mmol/L (3.5-5.1) Chloride Level 105 mmol/L (98-107) Carbon Dioxide Level 32 mmol/L (21-32) Anion Gap 6 (6-14) Blood Urea Nitrogen 28 mg/dL (7-20) Creatinine 0.7 mg/dL (0.6-1.0) Estimated GFR (Cockcroft-Gault) 90.9 BUN/Creatinine Ratio 40 (6-20) Glucose Level 129 mg/dL (70-99) Calcium Level 7.9 mg/dL (8.5-10.1) Total Bilirubin 0.4 mg/dL (0.2-1.0) Aspartate Amino Transf (AST/SGOT) 29 U/L (15-37) Alanine Aminotransferase (ALT/SGPT) 36 U/L (14-59) Alkaline Phosphatase 55 U/L (46-116) Total Protein 6.4 g/dL (6.4-8.2) Albumin 2.5 g/dL (3.4-5.0) Albumin/Globulin Ratio 0.6 (1.0-1.7) O2 Saturation 87 % (92-99) Arterial Blood pH 7.51 (7.35-7.45) Arterial Blood pCO2 at Patient Temp 47 mmHg (35-46) Arterial Blood pO2 at Patient Temp 54 mmHg (75-108) Arterial Blood HCO3 36 mmol/L (21-28) Arterial Blood Base Excess 12 mmol/L (-3-3) FiO2 70% Medications Active Scripts Medications Dose Route/Sig Max Daily Dose Days Date Category Keflex (Cephalexin) 500 Mg Capsule 500 Mg PO QID 10 06/20/18 Rx [place] 5-325 Tablet (Acetaminophen/Hydrocodone Bitart) 1 Each Tablet 1 Tab PO PRN Q6HRS PRN 06/20/18 Rx Comments CXR IMPRESSION: 1. Widespread airspace disease, not significantly changed. 2. Stable position of tubes and lines. Impression . IMPRESSION: 1. Acute hypoxic respiratory failure secondary to COVID-19 pneumonia and sepsis. intubated 01/24/20 2. Abnormal chest x-ray with bilateral patchy infiltrates compatible with COVID-19 pneumonia. COVID-19 + 3. Underlying obesity. 4. Hypertension 5. Hypotension- improved 6, COVID-19 sepsis--improved Status post convalescent serum 01/22 7. Presumptive thromboembolic disease related to COVID-19 8. Critical care myopathy 9. Delirium Plan . Patient did well extubated, and now with some delirium Add Haldol Decrease steroids Cont. heparin for presumptive thromboembolic disease currently off ABX Continue tube feeding for nutritional support GI/DVT prophylaxis Discussed with RN and RT Total cumulative critical care time of 30 minutes reviewing data, labs, chest x- ray, and formulating a plan CODE: FULL LEIF COBB MD Feb 06, 2020 08:41
[2020-02-06 08:55] LABS: PCO2 ABG 39 mmHg (35-46)
[2020-02-06 08:56] LABS: BASE EXCESS ABG 6 mmol/L (-3-3); HCO3 ABG 30 mmol/L (21-28); PO2 ABG 66 mmHg (75-108); SAT O2 ABG 92 % (92-99)
[2020-02-06 08:59] LABS: FIO2 ABG 50%
[2020-02-06] MEDS: SENNOSIDES/DOCUSATE 8.6/50MG TABLET. PO SCH ×2 (09:00→20:51)
[2020-02-06] MEDS: DEXAMETHASONE SOD PHOS 4 MG/ML VIAL IVP SCH (09:17)
[2020-02-06] MEDS: NYSTATIN 100,000 UNITS/ML 5 ML ORAL.SUSP. SWSW SCH ×2 (09:17→20:56)
[2020-02-06] MEDS: FAMOTIDINE 20 MG/2 ML VIAL IVP SCH ×2 (09:18→20:57)
--- NOTE | 2020-02-06 09:34 | PDOC2 ---
GI CONSULT Reason For Consult: GI bleed HPI: HPI: 44 y/o [place]-speaking female admitted 01/21/20 w/ COVID-19 pneumonia. History from chart and staff. Yesterday was agitated and attempted to self-extubate. Was tolerating tube feeds - nurse checked residual and reported 325mL "bright red blood." Later when rechecked had 20mL of blood, and then none when checked a third time. Tubes feeds held, possible extubation today. Hgb stable. On IV acid-slasher runner. PMH: PMH: per chart - HTN, obesity, FH: Family History: Other (unable to obtain) Social History: Smoke: No ALCOHOL: none Drugs: None ROS: Unable to obtain. Vitals: Vitals: Vital Signs Date Time Temp Pulse Resp B/P (MAP) Pulse Ox O2 Delivery O2 Flow Rate FiO2 02/06/20 08:09 98 Ventilator 02/06/20 07:31 41 24 101/48 (65) 02/06/20 04:00 99.0 99.0 Labs: Labs: Laboratory Tests Test 02/05/20 12:15 02/05/20 12:40 02/05/20 20:20 02/06/20 02:20 O2 Saturation 81 % (92-99) Arterial Blood pH 7.49 (7.35-7.45) Arterial Blood pCO2 at Patient Temp 42 mmHg (35-46) Arterial Blood pO2 at Patient Temp 46 mmHg (75-108) Arterial Blood HCO3 31 mmol/L (21-28) Arterial Blood Base Excess 7 mmol/L (-3-3) FiO2 40 Heparin Anti-Xa Act, Unfractionated 0.47 IU/mL (0.30-0.70) White Blood Count 13.6 x10^3/uL (4.0-11.0) 14.2 x10^3/uL (4.0-11.0) Red Blood Count 4.18 x10^6/uL (3.50-5.40) 3.93 x10^6/uL (3.50-5.40) Hemoglobin 11.9 g/dL (12.0-15.5) 11.1 g/dL (12.0-15.5) Hematocrit 35.3 % (36.0-47.0) 33.5 % (36.0-47.0) Mean Corpuscular Volume 85 fL (79-100) 85 fL (79-100) Mean Corpuscular Hemoglobin 29 pg (25-35) 28 pg (25-35) Mean Corpuscular Hemoglobin Concent 34 g/dL (31-37) 33 g/dL (31-37) Red Cell Distribution Width 17.1 % (11.5-14.5) 17.0 % (11.5-14.5) Platelet Count 315 x10^3/uL (140-400) 309 x10^3/uL (140-400) Neutrophils (%) (Auto) 84 % (31-73) 78 % (31-73) Lymphocytes (%) (Auto) 9 % (24-48) 14 % (24-48) Monocytes (%) (Auto) 7 % (0-9) 7 % (0-9) Eosinophils (%) (Auto) 0 % (0-3) 1 % (0-3) Basophils (%) (Auto) 0 % (0-3) 1 % (0-3) Neutrophils # (Auto) 11.3 x10^3/uL (1.8-7.7) 11.1 x10^3/uL (1.8-7.7) Lymphocytes # (Auto) 1.2 x10^3/uL (1.0-4.8) 2.0 x10^3/uL (1.0-4.8) Monocytes # (Auto) 0.9 x10^3/uL (0.0-1.1) 0.9 x10^3/uL (0.0-1.1) Eosinophils # (Auto) 0.0 x10^3/uL (0.0-0.7) 0.1 x10^3/uL (0.0-0.7) Basophils # (Auto) 0.1 x10^3/uL (0.0-0.2) 0.1 x10^3/uL (0.0-0.2) Test 02/06/20 05:30 02/06/20 07:35 Sodium Level 143 mmol/L (136-145) Potassium Level 4.0 mmol/L (3.5-5.1) Chloride Level 105 mmol/L (98-107) Carbon Dioxide Level 32 mmol/L (21-32) Anion Gap 6 (6-14) Blood Urea Nitrogen 28 mg/dL (7-20) Creatinine 0.7 mg/dL (0.6-1.0) Estimated GFR (Cockcroft-Gault) 90.9 BUN/Creatinine Ratio 40 (6-20) Glucose Level 129 mg/dL (70-99) Calcium Level 7.9 mg/dL (8.5-10.1) Total Bilirubin 0.4 mg/dL (0.2-1.0) Aspartate Amino Transf (AST/SGOT) 29 U/L (15-37) Alanine Aminotransferase (ALT/SGPT) 36 U/L (14-59) Alkaline Phosphatase 55 U/L (46-116) Total Protein 6.4 g/dL (6.4-8.2) Albumin 2.5 g/dL (3.4-5.0) Albumin/Globulin Ratio 0.6 (1.0-1.7) O2 Saturation 92 % (92-99) Arterial Blood pH 7.50 (7.35-7.45) Arterial Blood pCO2 at Patient Temp 39 mmHg (35-46) Arterial Blood pO2 at Patient Temp 66 mmHg (75-108) Arterial Blood HCO3 30 mmol/L (21-28) Arterial Blood Base Excess 6 mmol/L (-3-3) FiO2 50% Allergies: Coded Allergies: ibuprofen (Verified Allergy, Intermediate, 06/20/18) Medications: Current Medications Medications (Trade) Dose Ordered Sig/Wei Route PRN Reason Start Time Stop Time Status Last Admin Dose Admin Famotidine (Pepcid Vial) 40 mg BID IVP 02/05/20 21:00 02/06/20 09:18 Imaging: Imaging: CXR 02/04 Impression: Improved left basilar aeration. Diffuse airspace opacification again seen otherwise without significant change. PE: GEN: intubated in COVID isolation HEENT: Atraumatic, PERRL LUNGS: vent HEART: bradycardic ABD: queit BS, S/ND/NT EXTREMITY: No edema SKIN: No rashes, no jaundice NEURO/PSYCH: awake, moving arms around A/P: A/P: Resp failure +COVID-19 Blood in OG tube Anemia - stable -- ?bleeding related to OG trauma w/ agitation yesterday Hgb stable, BUN up a bit. Monitor labs and for recurrent bleeding. Currently no plans for EGD. Continue IV acid-slasher runner. If extubated and no recurrent bleeding, okay to retry PO when cleared by [facility] EDUCATIONAL AIDE. FAMILIA CLEMENTS Feb 06, 2020 09:34
--- NOTE | 2020-02-06 12:23 | NUR ---
SS following up with discharge planning. SS reviewed pt chart and discussed with pt RN. Pt COVID19 positive. Pt extubated and now on ten liters nasal canula. SS will continue to follow for discharge planning.
[2020-02-06] MEDS ORDERED: HALOPERIDOL LACTATE 5 MG/ML VIAL. IVP PRN (15:00)
[2020-02-06] MEDS: ANTI-COAG MONITOR BY PHARMACY. MC PRN (16:27)
--- NOTE | 2020-02-06 16:32 | NUR ---
Patient extubated at 1000 today. Patient continues to be non compliant not following patient safety. Patient has attempted to get out of bed several times. Succeeded once and report was filed. Addendum: 02/06/20 at 1849 by TERE LOPEZ RN Patient continues to be confused and trying to get out of bed. Reeducated patient about patient safety, PT and OT and ST will see her tomorrow to assess patient.
[2020-02-06] MEDS ORDERED: diphenhydrAMINE 50 MG/ML VIAL IVP ONE (18:45)
[2020-02-06] MEDS: methylPREDNISolone SOD SUCC PF 40 MG/ML VIAL. IV SCH (20:56)
[2020-02-07] VITALS (16 sets, daily range): BP systolic 109–135; BP diastolic 60–83
[2020-02-07 05:52] LABS: BASO % 0 % (0-3); EOS % 0 % (0-3); HEMATOCRIT 34.2 % (36.0-47.0); HEMOGLOBIN 11.2 g/dL (12.0-15.5); LYMPH # 0.8 x10^3/uL (1.0-4.8); LYMPH % 4 % (24-48); MEAN CORPUSCULAR HEMOGLOBIN 28 pg (25-35); MEAN CORPUSCULAR HGB CONC 33 g/dL (31-37); MEAN CORPUSCULAR VOLUME 86 fL (79-100); MONO # 0.4 x10^3/uL (0.0-1.1); MONO % 2 % (0-9); NEUT # 16.5 x10^3/uL (1.8-7.7); NEUT % 93 % (31-73); PLATELET COUNT 296 x10^3/uL (140-400); RED CELL DISTRIBUTION WIDTH 17.2 % (11.5-14.5); WHITE BLOOD COUNT 17.7 x10^3/uL (4.0-11.0)
[2020-02-07 06:29] LABS: ALBUMIN 2.9 g/dL (3.4-5.0); ALBUMIN/GLOBULIN RATIO 0.7 (1.0-1.7); CALCIUM 8.5 mg/dL (8.5-10.1); CREATININE 0.5 mg/dL (0.6-1.0); TOTAL BILIRUBIN 0.7 mg/dL (0.2-1.0); TOTAL PROTEIN 7.1 g/dL (6.4-8.2)
[2020-02-07 07:35] LABS: % LYMPHS 3 % (24-48); % MONOS 3 % (0-10); % SEGS 94 % (35-66); ANISOCYTOSIS SLIGHT; PLT ESTIMATE ADEQUATE (ADEQUATE)
--- NOTE | 2020-02-07 08:39 | PDOC ---
PULMONARY PROGRESS NOTES Subjective Patient did well this morning on trial, extubated 02/05 now confused Vitals Vital Signs Date Time Temp Pulse Resp B/P (MAP) Pulse Ox O2 Delivery O2 Flow Rate FiO2 02/07/20 07:26 90 36 135/77 (96) 92 Venturi Mask 02/07/20 04:00 99.3 99.3 02/07/20 02:00 Lungs: Clear Cardiovascular: S1, S2 Abdomen: Soft Extremities: Other (Edema) Labs Laboratory Tests Test 02/05/20 12:15 02/05/20 12:40 02/05/20 20:20 02/06/20 02:20 O2 Saturation 81 % (92-99) Arterial Blood pH 7.49 (7.35-7.45) Arterial Blood pCO2 at Patient Temp 42 mmHg (35-46) Arterial Blood pO2 at Patient Temp 46 mmHg (75-108) Arterial Blood HCO3 31 mmol/L (21-28) Arterial Blood Base Excess 7 mmol/L (-3-3) FiO2 40 Heparin Anti-Xa Act, Unfractionated 0.47 IU/mL (0.30-0.70) White Blood Count 13.6 x10^3/uL (4.0-11.0) 14.2 x10^3/uL (4.0-11.0) Red Blood Count 4.18 x10^6/uL (3.50-5.40) 3.93 x10^6/uL (3.50-5.40) Hemoglobin 11.9 g/dL (12.0-15.5) 11.1 g/dL (12.0-15.5) Hematocrit 35.3 % (36.0-47.0) 33.5 % (36.0-47.0) Mean Corpuscular Volume 85 fL (79-100) 85 fL (79-100) Mean Corpuscular Hemoglobin 29 pg (25-35) 28 pg (25-35) Mean Corpuscular Hemoglobin Concent 34 g/dL (31-37) 33 g/dL (31-37) Red Cell Distribution Width 17.1 % (11.5-14.5) 17.0 % (11.5-14.5) Platelet Count 315 x10^3/uL (140-400) 309 x10^3/uL (140-400) Neutrophils (%) (Auto) 84 % (31-73) 78 % (31-73) Lymphocytes (%) (Auto) 9 % (24-48) 14 % (24-48) Monocytes (%) (Auto) 7 % (0-9) 7 % (0-9) Eosinophils (%) (Auto) 0 % (0-3) 1 % (0-3) Basophils (%) (Auto) 0 % (0-3) 1 % (0-3) Neutrophils # (Auto) 11.3 x10^3/uL (1.8-7.7) 11.1 x10^3/uL (1.8-7.7) Lymphocytes # (Auto) 1.2 x10^3/uL (1.0-4.8) 2.0 x10^3/uL (1.0-4.8) Monocytes # (Auto) 0.9 x10^3/uL (0.0-1.1) 0.9 x10^3/uL (0.0-1.1) Eosinophils # (Auto) 0.0 x10^3/uL (0.0-0.7) 0.1 x10^3/uL (0.0-0.7) Basophils # (Auto) 0.1 x10^3/uL (0.0-0.2) 0.1 x10^3/uL (0.0-0.2) Test 02/06/20 05:30 02/06/20 07:35 02/07/20 05:15 Sodium Level 143 mmol/L (136-145) 141 mmol/L (136-145) Potassium Level 4.0 mmol/L (3.5-5.1) 4.0 mmol/L (3.5-5.1) Chloride Level 105 mmol/L (98-107) 105 mmol/L (98-107) Carbon Dioxide Level 32 mmol/L (21-32) 26 mmol/L (21-32) Anion Gap 6 (6-14) 10 (6-14) Blood Urea Nitrogen 28 mg/dL (7-20) 20 mg/dL (7-20) Creatinine 0.7 mg/dL (0.6-1.0) 0.5 mg/dL (0.6-1.0) Estimated GFR (Cockcroft-Gault) 90.9 134.0 BUN/Creatinine Ratio 40 (6-20) 40 (6-20) Glucose Level 129 mg/dL (70-99) 126 mg/dL (70-99) Calcium Level 7.9 mg/dL (8.5-10.1) 8.5 mg/dL (8.5-10.1) Total Bilirubin 0.4 mg/dL (0.2-1.0) 0.7 mg/dL (0.2-1.0) Aspartate Amino Transf (AST/SGOT) 29 U/L (15-37) 41 U/L (15-37) Alanine Aminotransferase (ALT/SGPT) 36 U/L (14-59) 44 U/L (14-59) Alkaline Phosphatase 55 U/L (46-116) 57 U/L (46-116) Total Protein 6.4 g/dL (6.4-8.2) 7.1 g/dL (6.4-8.2) Albumin 2.5 g/dL (3.4-5.0) 2.9 g/dL (3.4-5.0) Albumin/Globulin Ratio 0.6 (1.0-1.7) 0.7 (1.0-1.7) O2 Saturation 92 % (92-99) Arterial Blood pH 7.50 (7.35-7.45) Arterial Blood pCO2 at Patient Temp 39 mmHg (35-46) Arterial Blood pO2 at Patient Temp 66 mmHg (75-108) Arterial Blood HCO3 30 mmol/L (21-28) Arterial Blood Base Excess 6 mmol/L (-3-3) FiO2 50% White Blood Count 17.7 x10^3/uL (4.0-11.0) Red Blood Count 4.00 x10^6/uL (3.50-5.40) Hemoglobin 11.2 g/dL (12.0-15.5) Hematocrit 34.2 % (36.0-47.0) Mean Corpuscular Volume 86 fL (79-100) Mean Corpuscular Hemoglobin 28 pg (25-35) Mean Corpuscular Hemoglobin Concent 33 g/dL (31-37) Red Cell Distribution Width 17.2 % (11.5-14.5) Platelet Count 296 x10^3/uL (140-400) Neutrophils (%) (Auto) 93 % (31-73) Lymphocytes (%) (Auto) 4 % (24-48) Monocytes (%) (Auto) 2 % (0-9) Eosinophils (%) (Auto) 0 % (0-3) Basophils (%) (Auto) 0 % (0-3) Neutrophils # (Auto) 16.5 x10^3/uL (1.8-7.7) Lymphocytes # (Auto) 0.8 x10^3/uL (1.0-4.8) Monocytes # (Auto) 0.4 x10^3/uL (0.0-1.1) Eosinophils # (Auto) 0.0 x10^3/uL (0.0-0.7) Basophils # (Auto) 0.0 x10^3/uL (0.0-0.2) Segmented Neutrophils % 94 % (35-66) Lymphocytes % 3 % (24-48) Monocytes % 3 % (0-10) Platelet Estimate Adequate (ADEQUATE) Anisocytosis Slight Laboratory Tests Test 02/07/20 05:15 White Blood Count 17.7 x10^3/uL (4.0-11.0) Red Blood Count 4.00 x10^6/uL (3.50-5.40) Hemoglobin 11.2 g/dL (12.0-15.5) Hematocrit 34.2 % (36.0-47.0) Mean Corpuscular Volume 86 fL (79-100) Mean Corpuscular Hemoglobin 28 pg (25-35) Mean Corpuscular Hemoglobin Concent 33 g/dL (31-37) Red Cell Distribution Width 17.2 % (11.5-14.5) Platelet Count 296 x10^3/uL (140-400) Neutrophils (%) (Auto) 93 % (31-73) Lymphocytes (%) (Auto) 4 % (24-48) Monocytes (%) (Auto) 2 % (0-9) Eosinophils (%) (Auto) 0 % (0-3) Basophils (%) (Auto) 0 % (0-3) Neutrophils # (Auto) 16.5 x10^3/uL (1.8-7.7) Lymphocytes # (Auto) 0.8 x10^3/uL (1.0-4.8) Monocytes # (Auto) 0.4 x10^3/uL (0.0-1.1) Eosinophils # (Auto) 0.0 x10^3/uL (0.0-0.7) Basophils # (Auto) 0.0 x10^3/uL (0.0-0.2) Segmented Neutrophils % 94 % (35-66) Lymphocytes % 3 % (24-48) Monocytes % 3 % (0-10) Platelet Estimate Adequate (ADEQUATE) Anisocytosis Slight Sodium Level 141 mmol/L (136-145) Potassium Level 4.0 mmol/L (3.5-5.1) Chloride Level 105 mmol/L (98-107) Carbon Dioxide Level 26 mmol/L (21-32) Anion Gap 10 (6-14) Blood Urea Nitrogen 20 mg/dL (7-20) Creatinine 0.5 mg/dL (0.6-1.0) Estimated GFR (Cockcroft-Gault) 134.0 BUN/Creatinine Ratio 40 (6-20) Glucose Level 126 mg/dL (70-99) Calcium Level 8.5 mg/dL (8.5-10.1) Total Bilirubin 0.7 mg/dL (0.2-1.0) Aspartate Amino Transf (AST/SGOT) 41 U/L (15-37) Alanine Aminotransferase (ALT/SGPT) 44 U/L (14-59) Alkaline Phosphatase 57 U/L (46-116) Total Protein 7.1 g/dL (6.4-8.2) Albumin 2.9 g/dL (3.4-5.0) Albumin/Globulin Ratio 0.7 (1.0-1.7) Medications Active Scripts Medications Dose Route/Sig Max Daily Dose Days Date Category Keflex (Cephalexin) 500 Mg Capsule 500 Mg PO QID 10 06/20/18 Rx [place] 5-325 Tablet (Acetaminophen/Hydrocodone Bitart) 1 Each Tablet 1 Tab PO PRN Q6HRS PRN 06/20/18 Rx Comments CXR IMPRESSION: 1. Widespread airspace disease, not significantly changed. 2. Stable position of tubes and lines. Impression . IMPRESSION: 1. Acute hypoxic respiratory failure secondary to COVID-19 pneumonia and sepsis. intubated 01/24/20 2. Abnormal chest x-ray with bilateral patchy infiltrates compatible with COVID-19 pneumonia. COVID-19 + 3. Underlying obesity. 4. Hypertension 5. Hypotension- improved 6, COVID-19 sepsis--improved Status post convalescent serum 01/22 7. Presumptive thromboembolic disease related to COVID-19 8. Critical care myopathy 9. Delirium Plan . Extubated 02/05 Spoke with nurse continue current support Add Haldol Decrease steroids Cont. heparin for presumptive thromboembolic disease, will switch to Lovenox sometime next week currently off ABX Continue tube feeding for nutritional support GI/DVT prophylaxis Discussed with RN and RT Total cumulative critical care time of 30 minutes reviewing data, labs, chest x- ray, and formulating a plan CODE: FULL LEIF COBB MD Feb 07, 2020 08:39
[2020-02-07] MEDS: methylPREDNISolone SOD SUCC PF 40 MG/ML VIAL. IV SCH ×2 (08:40→20:53)
[2020-02-07] MEDS: FAMOTIDINE 20 MG/2 ML VIAL IVP SCH ×2 (08:40→20:54)
[2020-02-07] MEDS: SENNOSIDES/DOCUSATE 8.6/50MG TABLET. PO SCH ×2 (08:40→19:17)
[2020-02-07] MEDS: NYSTATIN 100,000 UNITS/ML 5 ML ORAL.SUSP. SWSW SCH ×2 (08:40→19:17)
--- NOTE | 2020-02-07 08:44 | PDOC ---
PROGRESS NOTES Assessment Problems Medical Problems: (1) Pneumonia due to COVID-19 virus Status: Acute Dysconjugate gaze, no recurrence, patient was in the midst of sedation and severe metabolic encephalopathy. Respiratory failure secondary to COVID-19 and sepsis Pneumonia, obesity, hypertension, anemia, protein-calorie malnutrition Agitated yesterday off sedation per nurse report Plan holding off on brain imaging studies given her neurological improvement Subjective none Objective Vital Signs Date Time Temp Pulse Resp B/P (MAP) Pulse Ox O2 Delivery O2 Flow Rate FiO2 02/05/20 10:04 75 24 121/65 (83) 94 Ventilator 02/05/20 08:03 97.9 97.9 Intake and Output 02/05/20 07:00 Intake Total 4265.95 ml Output Total 4945 ml Balance -679.05 ml IV Total 851.95 ml Tube Feeding 2964 ml Other 450 ml Output Urine Total 4945 ml PHYSICAL EXAM Intubated, follows commands, sedated Objective Vital Signs Date Time Temp Pulse Resp B/P (MAP) Pulse Ox O2 Delivery O2 Flow Rate FiO2 02/07/20 07:26 90 36 135/77 (96) 92 Venturi Mask 02/07/20 04:00 99.3 99.3 02/07/20 02:00 Intake and Output 02/07/20 07:00 Output Total 1595 ml Balance -1595 ml Output Urine Total 1595 ml PHYSICAL EXAM Alert, follows commands PERRL. EOMI. CN: no focal findings. Muscle tone: normal. Muscle strength: moves all extremities DTR: 1+ Plantar reflex: flexor Gait: not examined in bed. Sensory exam: no abnormal findings. No cerebellar signs elicited. Review of Relevant I have reviewed the following items stephon (where applicable) has been applied. Labs Laboratory Tests Test 02/05/20 12:15 02/05/20 12:40 02/05/20 20:20 02/06/20 02:20 O2 Saturation 81 % (92-99) Arterial Blood pH 7.49 (7.35-7.45) Arterial Blood pCO2 at Patient Temp 42 mmHg (35-46) Arterial Blood pO2 at Patient Temp 46 mmHg (75-108) Arterial Blood HCO3 31 mmol/L (21-28) Arterial Blood Base Excess 7 mmol/L (-3-3) FiO2 40 Heparin Anti-Xa Act, Unfractionated 0.47 IU/mL (0.30-0.70) White Blood Count 13.6 x10^3/uL (4.0-11.0) 14.2 x10^3/uL (4.0-11.0) Red Blood Count 4.18 x10^6/uL (3.50-5.40) 3.93 x10^6/uL (3.50-5.40) Hemoglobin 11.9 g/dL (12.0-15.5) 11.1 g/dL (12.0-15.5) Hematocrit 35.3 % (36.0-47.0) 33.5 % (36.0-47.0) Mean Corpuscular Volume 85 fL (79-100) 85 fL (79-100) Mean Corpuscular Hemoglobin 29 pg (25-35) 28 pg (25-35) Mean Corpuscular Hemoglobin Concent 34 g/dL (31-37) 33 g/dL (31-37) Red Cell Distribution Width 17.1 % (11.5-14.5) 17.0 % (11.5-14.5) Platelet Count 315 x10^3/uL (140-400) 309 x10^3/uL (140-400) Neutrophils (%) (Auto) 84 % (31-73) 78 % (31-73) Lymphocytes (%) (Auto) 9 % (24-48) 14 % (24-48) Monocytes (%) (Auto) 7 % (0-9) 7 % (0-9) Eosinophils (%) (Auto) 0 % (0-3) 1 % (0-3) Basophils (%) (Auto) 0 % (0-3) 1 % (0-3) Neutrophils # (Auto) 11.3 x10^3/uL (1.8-7.7) 11.1 x10^3/uL (1.8-7.7) Lymphocytes # (Auto) 1.2 x10^3/uL (1.0-4.8) 2.0 x10^3/uL (1.0-4.8) Monocytes # (Auto) 0.9 x10^3/uL (0.0-1.1) 0.9 x10^3/uL (0.0-1.1) Eosinophils # (Auto) 0.0 x10^3/uL (0.0-0.7) 0.1 x10^3/uL (0.0-0.7) Basophils # (Auto) 0.1 x10^3/uL (0.0-0.2) 0.1 x10^3/uL (0.0-0.2) Test 02/06/20 05:30 02/06/20 07:35 02/07/20 05:15 Sodium Level 143 mmol/L (136-145) 141 mmol/L (136-145) Potassium Level 4.0 mmol/L (3.5-5.1) 4.0 mmol/L (3.5-5.1) Chloride Level 105 mmol/L (98-107) 105 mmol/L (98-107) Carbon Dioxide Level 32 mmol/L (21-32) 26 mmol/L (21-32) Anion Gap 6 (6-14) 10 (6-14) Blood Urea Nitrogen 28 mg/dL (7-20) 20 mg/dL (7-20) Creatinine 0.7 mg/dL (0.6-1.0) 0.5 mg/dL (0.6-1.0) Estimated GFR (Cockcroft-Gault) 90.9 134.0 BUN/Creatinine Ratio 40 (6-20) 40 (6-20) Glucose Level 129 mg/dL (70-99) 126 mg/dL (70-99) Calcium Level 7.9 mg/dL (8.5-10.1) 8.5 mg/dL (8.5-10.1) Total Bilirubin 0.4 mg/dL (0.2-1.0) 0.7 mg/dL (0.2-1.0) Aspartate Amino Transf (AST/SGOT) 29 U/L (15-37) 41 U/L (15-37) Alanine Aminotransferase (ALT/SGPT) 36 U/L (14-59) 44 U/L (14-59) Alkaline Phosphatase 55 U/L (46-116) 57 U/L (46-116) Total Protein 6.4 g/dL (6.4-8.2) 7.1 g/dL (6.4-8.2) Albumin 2.5 g/dL (3.4-5.0) 2.9 g/dL (3.4-5.0) Albumin/Globulin Ratio 0.6 (1.0-1.7) 0.7 (1.0-1.7) O2 Saturation 92 % (92-99) Arterial Blood pH 7.50 (7.35-7.45) Arterial Blood pCO2 at Patient Temp 39 mmHg (35-46) Arterial Blood pO2 at Patient Temp 66 mmHg (75-108) Arterial Blood HCO3 30 mmol/L (21-28) Arterial Blood Base Excess 6 mmol/L (-3-3) FiO2 50% White Blood Count 17.7 x10^3/uL (4.0-11.0) Red Blood Count 4.00 x10^6/uL (3.50-5.40) Hemoglobin 11.2 g/dL (12.0-15.5) Hematocrit 34.2 % (36.0-47.0) Mean Corpuscular Volume 86 fL (79-100) Mean Corpuscular Hemoglobin 28 pg (25-35) Mean Corpuscular Hemoglobin Concent 33 g/dL (31-37) Red Cell Distribution Width 17.2 % (11.5-14.5) Platelet Count 296 x10^3/uL (140-400) Neutrophils (%) (Auto) 93 % (31-73) Lymphocytes (%) (Auto) 4 % (24-48) Monocytes (%) (Auto) 2 % (0-9) Eosinophils (%) (Auto) 0 % (0-3) Basophils (%) (Auto) 0 % (0-3) Neutrophils # (Auto) 16.5 x10^3/uL (1.8-7.7) Lymphocytes # (Auto) 0.8 x10^3/uL (1.0-4.8) Monocytes # (Auto) 0.4 x10^3/uL (0.0-1.1) Eosinophils # (Auto) 0.0 x10^3/uL (0.0-0.7) Basophils # (Auto) 0.0 x10^3/uL (0.0-0.2) Segmented Neutrophils % 94 % (35-66) Lymphocytes % 3 % (24-48) Monocytes % 3 % (0-10) Platelet Estimate Adequate (ADEQUATE) Anisocytosis Slight Laboratory Tests Test 02/07/20 05:15 White Blood Count 17.7 x10^3/uL (4.0-11.0) Red Blood Count 4.00 x10^6/uL (3.50-5.40) Hemoglobin 11.2 g/dL (12.0-15.5) Hematocrit 34.2 % (36.0-47.0) Mean Corpuscular Volume 86 fL (79-100) Mean Corpuscular Hemoglobin 28 pg (25-35) Mean Corpuscular Hemoglobin Concent 33 g/dL (31-37) Red Cell Distribution Width 17.2 % (11.5-14.5) Platelet Count 296 x10^3/uL (140-400) Neutrophils (%) (Auto) 93 % (31-73) Lymphocytes (%) (Auto) 4 % (24-48) Monocytes (%) (Auto) 2 % (0-9) Eosinophils (%) (Auto) 0 % (0-3) Basophils (%) (Auto) 0 % (0-3) Neutrophils # (Auto) 16.5 x10^3/uL (1.8-7.7) Lymphocytes # (Auto) 0.8 x10^3/uL (1.0-4.8) Monocytes # (Auto) 0.4 x10^3/uL (0.0-1.1) Eosinophils # (Auto) 0.0 x10^3/uL (0.0-0.7) Basophils # (Auto) 0.0 x10^3/uL (0.0-0.2) Segmented Neutrophils % 94 % (35-66) Lymphocytes % 3 % (24-48) Monocytes % 3 % (0-10) Platelet Estimate Adequate (ADEQUATE) Anisocytosis Slight Sodium Level 141 mmol/L (136-145) Potassium Level 4.0 mmol/L (3.5-5.1) Chloride Level 105 mmol/L (98-107) Carbon Dioxide Level 26 mmol/L (21-32) Anion Gap 10 (6-14) Blood Urea Nitrogen 20 mg/dL (7-20) Creatinine 0.5 mg/dL (0.6-1.0) Estimated GFR (Cockcroft-Gault) 134.0 BUN/Creatinine Ratio 40 (6-20) Glucose Level 126 mg/dL (70-99) Calcium Level 8.5 mg/dL (8.5-10.1) Total Bilirubin 0.7 mg/dL (0.2-1.0) Aspartate Amino Transf (AST/SGOT) 41 U/L (15-37) Alanine Aminotransferase (ALT/SGPT) 44 U/L (14-59) Alkaline Phosphatase 57 U/L (46-116) Total Protein 7.1 g/dL (6.4-8.2) Albumin 2.9 g/dL (3.4-5.0) Albumin/Globulin Ratio 0.7 (1.0-1.7) Medications Current Medications Acetaminophen (Tylenol) 1,000 mg 1X ONCE PO Last administered on 01/21/20at 17:00; Start 01/21/20 at 17:00; Stop 01/21/20 at 17:01; Status DC Ondansetron HCl (Zofran) 4 mg PRN Q8HRS PRN IV NAUSEA/VOMITING; Start 01/21/20 at 18:00; Stop 01/22/20 at 07:55; Status DC Dexamethasone Sodium Phosphate (Decadron) 6 mg 1X ONCE IVP Last administered on 01/21/20at 18:14; Start 01/21/20 at 18:00; Stop 01/21/20 at 18:01; Status DC Ceftriaxone Sodium (Rocephin) 1 gm 1X ONCE IVP Last administered on 01/21/20at 18:14; Start 01/21/20 at 18:00; Stop 01/21/20 at 18:01; Status DC Azithromycin 500 mg/Sodium Chloride 250 ml @ 250 mls/hr Q24H IV Last administered on 01/25/20at 19:00; Start 01/22/20 at 19:00; Stop 01/26/20 at 09:05; Status DC Azithromycin 250 ml @ 250 mls/hr 1X ONCE IV Last administered on 01/21/20at 18:25; Start 01/21/20 at 18:15; Stop 01/21/20 at 19:14; Status DC Dexamethasone Sodium Phosphate (Decadron) 6 mg DAILY IVP Last administered on 02/06/20at 09:17; Start 01/22/20 at 09:00; Stop 02/06/20 at 14:50; Status DC Ceftriaxone Sodium (Rocephin) 1 gm Q24H IVP Last administered on 01/29/20at 20:14; Start 01/22/20 at 20:00; Stop 01/30/20 at 16:07; Status DC Azithromycin 250 ml @ 250 mls/hr 1X ONCE IV ; Start 01/21/20 at 19:45; Stop 01/21/20 at 20:44; Status UNV Acetaminophen (Tylenol) 650 mg PRN Q6HRS PRN PO Headaches, Temp > 101.5' Last administered on 01/25/20at 20:45; Start 01/21/20 at 19:45 Ondansetron HCl (Zofran) 4 mg PRN Q6HRS PRN IVP NAUSEA/VOMITING; Start 01/21/20 at 19:45 Al Hydroxide/Mg Hydroxide (Mylanta Plus Xs) 30 ml PRN Q3HRS PRN PO HEARTBURN / GAS; Start 01/21/20 at 19:45 Famotidine (Pepcid) 20 mg BID PO Last administered on 02/05/20at 07:56; Start 01/21/20 at 21:00; Stop 02/05/20 at 20:05; Status DC Enoxaparin Sodium (Lovenox 40mg Syringe) 40 mg Q24H SQ Last administered on 01/21/20at 21:07; Start 01/21/20 at 20:00; Stop 01/22/20 at 10:45; Status DC Sodium Chloride (Normal Saline Flush) 3 ml QSHIFT PRN IV AFTER MEDS AND BLOOD DRAWS; Start 01/21/20 at 19:45 Senna/Docusate Sodium (Senna Plus) 1 tab BID PO Last administered on 02/05/20at 07:56; Start 01/21/20 at 21:00 Magnesium Hydroxide (Milk Of Magnesia) 2,400 mg PRN Q12HR PRN PO CONSTIPATION; Start 01/21/20 at 19:45 Sterile Water (WATER for RESP) 1,000 ml CONT PRN INH VIA VAPOTHERM DEVICE Last administered on 01/23/20at 12:46; Start 01/22/20 at 04:30; Stop 02/05/20 at 09:43; Status DC Lactobacillus Rhamnosus (Culturelle) 1 cap BID PO Last administered on 02/04/20at 07:15; Start 01/22/20 at 09:00; Stop 02/04/20 at 10:38; Status DC Non-Formulary Medication 1 ea/ Sodium Chloride 210 ml @ 420 mls/hr ONCE ONCE IV Last administered on 01/22/20at 10:44; Start 01/22/20 at 11:00; Stop 01/22/20 at 11:29; Status DC Non-Formulary Medication 1 ea/ Sodium Chloride 230 ml @ 460 mls/hr DAILY IV Last administered on 01/26/20at 09:58; Start 01/23/20 at 09:00; Stop 01/26/20 at 09:29; Status DC Enoxaparin Sodium (Lovenox 40mg Syringe) 40 mg BID SQ Last administered on 01/30/20at 20:39; Start 01/22/20 at 11:00; Stop 01/30/20 at 20:57; Status DC Lorazepam (Ativan Inj) 0.5 mg PRN Q4HRS PRN IVP ANXIETY / AGITATION; Start 01/23/20 at 21:00 Lorazepam (Ativan Inj) 0.05 mg 1X ONCE IVP Last administered on 01/23/20at 21:13; Start 01/23/20 at 21:15; Stop 01/23/20 at 21:31; Status DC Fentanyl Citrate 30 ml @ 0 mls/hr CONT PRN IV SEE PROTOCOL Last administered on 02/01/20at 21:15; Start 01/23/20 at 22:45; Stop 02/02/20 at 02:27; Status DC Propofol 100 ml @ 0 mls/hr CONT PRN IV SEE PROTOCOL Last administered on 02/06/20at 04:59; Start 01/23/20 at 22:45; Stop 02/06/20 at 13:18; Status DC Midazolam HCl 100 ml @ 0 mls/hr CONT PRN IV SEE PROTOCOL Last administered on 02/04/20at 01:57; Start 01/23/20 at 22:45; Stop 02/06/20 at 13:18; Status DC Vecuronium [place] (Norcuron Bolus) 10 mg STK-MED ONCE IV ; Start 01/23/20 at 2 3:24; Stop 01/23/20 at 23:25; Status DC Vecuronium [place] (Norcuron Bolus) 60 mg 1X ONCE IV Last administered on 01/23/20at 23:30; Start 01/23/20 at 23:30; Stop 01/23/20 at 23:35; Status DC Norepinephrine Bitartrate 8 mg/ Dextrose 258 ml @ 20.666 mls/ hr CONT PRN IV PER PROTOCOL Last administered on 01/24/20at 12:28; Start 01/24/20 at 02:15 Vecuronium [place] (Norcuron Bolus) 6 mg PRN Q4HRS PRN IV SEDATION Last administered on 01/24/20at 15:40; Start 01/24/20 at 04:30; Stop 02/06/20 at 19:06; Status DC Succinylcholine Chloride (Anectine) 200 mg STK-MED ONCE .ROUTE ; Start 01/23/20 at 23:00; Stop 01/24/20 at 08:24; Status DC Etomidate (Amidate) 20 mg STK-MED ONCE IV ; Start 01/23/20 at 23:00; Stop 01/24/20 at 08:24; Status DC Ringer's Solution 1,000 ml @ 75 mls/hr [id number] IV Last administered on 01/25/20at 16:21; Start 01/24/20 at 12:30; Stop 01/26/20 at 09:17; Status DC Hydralazine HCl (Apresoline Inj) 10 mg PRN Q4HRS PRN IVP ELEVATED BP, SEE COMMENTS; Start 01/28/20 at 14:00 Heparin Sodium/ Dextrose 250 ml @ 17.6 mls/hr CONT PRN IV PER PROTOCOL Last administered on 02/05/20at 01:58; Start 01/30/20 at 21:00; Stop 02/05/20 at 20:07; Status DC Heparin Sodium (Porcine) (Heparin Sodium) 3,300 unit PRN Q6HRS PRN IV FOR UFH LEVEL LESS THAN 0.2; Start 01/30/20 at 21:00; Stop 02/06/20 at 16:22; Status DC Heparin Sodium (Porcine) (Heparin Sodium) 1,650 unit PRN Q6HRS PRN IV FOR UFH LEVEL 0.2 - 0.29 Last administered on 02/04/20at 15:13; Start 01/30/20 at 21:00; Stop 02/06/20 at 16:23; Status DC Heparin Sodium (Porcine) (Heparin Sodium) 8,700 unit 1X ONCE IV Last administered on 01/31/20 08:20; Start 01/31/20 at 07:15; Stop 01/31/20 at 07:16; Status DC Fentanyl Citrate 55 ml @ 0 mls/hr CONT PRN PRN IV PAIN/SEDATION Last administered on 02/05/20 02:06; Start 02/02/20 at 02:30; Stop 02/06/20 at 19:06; Status DC Nystatin (Nystatin Oral Susp) 5 ml BID SWSW Last administered on 02/06/20at 20:56; Start 02/02/20 at 09:00 Furosemide (Lasix) 40 mg 1X ONCE IVP Last administered on 02/04/20 17:12; Start 02/04/20 at 16:00; Stop 02/04/20 at 16:01; Status DC Dexmedetomidine HCl 400 mcg/ Sodium Chloride 100 ml @ 0 mls/hr CONT PRN IV SEE COMMENTS Last administered on 02/06/20 09:08; Start 02/05/20 at 07:30 Sodium Chloride 500 ml @ 500 mls/hr 1X PRN PRN IV ANXIETY / AGITATION; Start 02/05/20 at 07:30 Atropine Sulfate (ATROPINE 0.5mg SYRINGE) 0.5 mg PRN Q5MIN PRN IV SEE COMMENTS; Start 02/05/20 at 07:30 Info (Anti-Coagulation Monitoring By Pharmacy) 1 each PRN DAILY PRN MC SEE COMMENTS Last administered on 02/06/20at 16:27; Start 02/05/20 at 07:45 Famotidine (Pepcid Vial) 40 mg BID IVP Last administered on 02/07/20at 08:40; Start 02/05/20 at 21:00 Haloperidol Lactate (Haldol Inj) 5 mg PRN Q6HRS PRN IVP AGITATION; Start 02/06/20 at 15:00 Methylprednisolone Sodium Succinate (SOLU-Medrol 40MG VIAL) 40 mg Q12HR IV Last administered on 02/07/20at 08:40; Start 02/06/20 at 21:00 Diphenhydramine HCl (Benadryl) 50 mg 1X ONCE IVP Last administered on 02/06/20at 18:42; Start 02/06/20 at 18:45; Stop 02/06/20 at 18:46; Status DC Active Scripts Active Keflex (Cephalexin) 500 Mg Capsule 500 Mg PO QID 10 Days [place] 5-325 Tablet (Acetaminophen/Hydrocodone Bitart) 1 Each Tablet 1 Tab PO PRN Q6HRS PRN Vitals/I & O Vital Sign - Last 24 Hours 02/06/20 02/06/20 02/06/20 02/06/20 09:00 10:00 10:00 11:00 Pulse 42 50 60 Resp 23 32 30 B/P (MAP) 91/37 (55) 85/37 (53) 104/65 (78) Pulse Ox 98 94 98 98 O2 Delivery Ventilator Nasal Cannula Nasal Cannula Nasal Cannula O2 Flow Rate 10.0 10.0 10.0 02/06/20 02/06/20 02/06/20 02/06/20 11:15 12:18 12:26 13:13 Temp 98.3 98.3 Pulse 65 67 Resp 30 35 B/P (MAP) 97/56 (70) 103/65 (78) Pulse Ox 94 100 98 O2 Delivery Nasal Cannula Nasal Cannula Nasal Cannula Nasal Cannula O2 Flow Rate 10.0 10.0 10.0 10.0 02/06/20 02/06/20 02/06/20 02/06/20 14:00 15:34 16:27 16:28 Temp 98.0 98.0 Pulse 76 72 87 Resp 35 35 30 B/P (MAP) 97/65 (76) 119/65 (83) 110/61 (77) Pulse Ox 98 98 94 O2 Delivery Nasal Cannula Nasal Cannula Nasal Cannula Nasal Cannula O2 Flow Rate 10.0 10.0 10.0 10.0 02/06/20 02/06/20 02/06/20 02/06/20 17:06 18:38 19:00 20:00 Pulse 86 88 79 Resp 30 30 33 B/P (MAP) 103/70 (81) 113/67 (82) 125/74 (91) Pulse Ox 90 89 93 O2 Delivery Nasal Cannula Nasal Cannula Nasal Cannula Nasal Cannula O2 Flow Rate 8.0 8.0 8.0 8.0 02/06/20 02/06/20 02/06/20 02/06/20 20:00 21:00 22:00 23:00 Temp 99.2 99.2 Pulse 85 82 83 92 Resp 37 24 33 31 B/P (MAP) 128/70 (89) 122/74 (90) 126/81 (96) 144/72 (96) Pulse Ox 90 92 93 91 O2 Delivery Nasal Cannula Nasal Cannula Nasal Cannula Nasal Cannula O2 Flow Rate 8.0 8.0 8.0 12.0 02/07/20 02/07/20 02/07/20 02/07/20 00:00 00:00 01:00 02:00 Temp 99.3 99.3 Pulse 78 74 84 Resp 39 31 34 B/P (MAP) 132/60 (84) 109/62 (78) 120/74 (89) Pulse Ox 90 90 92 O2 Delivery Nasal Cannula Nasal Cannula Venturi Mask Venturi Mask O2 Flow Rate 12.0 12.0 02/07/20 02/07/20 02/07/20 02/07/20 03:00 04:00 04:00 05:00 Temp 99.3 99.3 Pulse 82 87 79 Resp 39 25 25 B/P (MAP) 125/74 (91) 132/72 (92) 131/75 (93) Pulse Ox 92 93 91 O2 Delivery Venturi Mask Venturi Mask Venturi Mask Venturi Mask 02/07/20 02/07/20 06:00 07:26 Pulse 90 90 Resp 20 36 B/P (MAP) 134/83 (100) 135/77 (96) Pulse Ox 91 92 O2 Delivery Venturi Mask Venturi Mask l Intake and Output 02/06/20 02/06/20 02/07/20 15:00 23:00 07:00 Output Total 425 ml 750 ml 420 ml Balance -425 ml -750 ml -420 ml Justicifation of Admission Dx: Justifications for Admission: Justification of Admission Dx: Yes Respiratory Failure: Severe Resp Distress ANA ROBERT MD Feb 07, 2020 08:44
--- NOTE | 2020-02-07 09:27 | PDOC ---
PROGRESS NOTES Chief Complaint Chief Complaint Acute Hypoxic Respiratory Failure Secondary to COVID-19 and sepsis pneumonia multifocal pulmonary infiltrates.// follow-up to resolution. Morbid Obesity, BMI 44 HTN NORMOCYTIC ANEMIA severe protein-caloric malnutrition 35 MIN CC TIME The patient was evaluated during the global COVID-19 pandemic, and that diagnosis was suspected/considered upon their initial presentation. Their evaluation, treatment and testing was consistent with current guidelines for patients who present with complaints or symptoms that may be related to COVID- 19. History of Present Illness History of Present Illness Ms Hackett is a 44-year-old female, who had been having fever and shortness of breath for about a week or so. The patient had outpatient COVID-19 done through [facility] on 01/13/2020 and was informed of positive results on 01/14/2020, which was positive and because of more shortness of breath, she decided to come in. The patient is requiring significant oxygen support. The patient denies any nausea, vomiting or diarrhea. Denies any other complaints other than shortness of breath. 7/4: very awake ealier on 10 versed, and IV fent, doing well on vent, discussed with RT, going down no Fi02 to 65% 7/: weaning PEEP and oxygen a little, doing a little better, cont current 02/02: weaning slowly, no event, improving slowly 78: Still on vent, awake, trying to self extubate. D/w pulm to stay on vent, BiPAP. WBC 16.7 02/05: WBC down to 14.2, afebrile heart rate in 40s comfortable on vent overnight. When sedation was weaned she almost self extubated. ABG 7. 50/39/66 on 50% FiO2 PEEP of 5. Extubated. Feeling improved. Awaiting swallow eval. Asking for food still on 12 later O2 mask. COVID-19 CRITERIA: The patient was evaluated during the global COVID-19 pandemic, and that diagnosis was suspected/considered upon their initial presentation. Their evaluation, treatment and testing was consistent with current guidelines for patients who present with complaints or symptoms that may be related to COVID-19. Could downgrading to 6 S. Vitals Vitals Vital Signs Date Time Temp Pulse Resp B/P (MAP) Pulse Ox O2 Delivery O2 Flow Rate FiO2 02/07/20 07:26 90 36 135/77 (96) 92 Venturi Mask 02/07/20 04:00 99.3 99.3 02/07/20 02:00 Physical Exam Physical Exam GENERAL: Orally intubated, on ventilator, eyes are open, + mitts in NAD HEENT: Pupils equal, disconjucated gaze, No conjunctival lesion, ETT, OGT NECK: Supple LUNGS: Diminished aeration bases HEART: S1, S2 regular, will 50s ABDOMEN: Obese, soft, + BS, no guarding : Vasquez EXTREMITIES: Generalized edema. SCDs, bilaterally SKIN: warm to touch. No signs of infection NEUROLOGIC: Unresponsive/sedated Right-sided CVC without signs of infection General: Other Heart: Regular rate Lungs: Clear Abdomen: Other Extremities: No cyanosis Skin: No breakdown Labs LABS Laboratory Tests Test 02/07/20 05:15 White Blood Count 17.7 x10^3/uL (4.0-11.0) Red Blood Count 4.00 x10^6/uL (3.50-5.40) Hemoglobin 11.2 g/dL (12.0-15.5) Hematocrit 34.2 % (36.0-47.0) Mean Corpuscular Volume 86 fL (79-100) Mean Corpuscular Hemoglobin 28 pg (25-35) Mean Corpuscular Hemoglobin Concent 33 g/dL (31-37) Red Cell Distribution Width 17.2 % (11.5-14.5) Platelet Count 296 x10^3/uL (140-400) Neutrophils (%) (Auto) 93 % (31-73) Lymphocytes (%) (Auto) 4 % (24-48) Monocytes (%) (Auto) 2 % (0-9) Eosinophils (%) (Auto) 0 % (0-3) Basophils (%) (Auto) 0 % (0-3) Neutrophils # (Auto) 16.5 x10^3/uL (1.8-7.7) Lymphocytes # (Auto) 0.8 x10^3/uL (1.0-4.8) Monocytes # (Auto) 0.4 x10^3/uL (0.0-1.1) Eosinophils # (Auto) 0.0 x10^3/uL (0.0-0.7) Basophils # (Auto) 0.0 x10^3/uL (0.0-0.2) Segmented Neutrophils % 94 % (35-66) Lymphocytes % 3 % (24-48) Monocytes % 3 % (0-10) Platelet Estimate Adequate (ADEQUATE) Anisocytosis Slight Sodium Level 141 mmol/L (136-145) Potassium Level 4.0 mmol/L (3.5-5.1) Chloride Level 105 mmol/L (98-107) Carbon Dioxide Level 26 mmol/L (21-32) Anion Gap 10 (6-14) Blood Urea Nitrogen 20 mg/dL (7-20) Creatinine 0.5 mg/dL (0.6-1.0) Estimated GFR (Cockcroft-Gault) 134.0 BUN/Creatinine Ratio 40 (6-20) Glucose Level 126 mg/dL (70-99) Calcium Level 8.5 mg/dL (8.5-10.1) Total Bilirubin 0.7 mg/dL (0.2-1.0) Aspartate Amino Transf (AST/SGOT) 41 U/L (15-37) Alanine Aminotransferase (ALT/SGPT) 44 U/L (14-59) Alkaline Phosphatase 57 U/L (46-116) Total Protein 7.1 g/dL (6.4-8.2) Albumin 2.9 g/dL (3.4-5.0) Albumin/Globulin Ratio 0.7 (1.0-1.7) Assessment and Plan Assessmemt and Plan Problems Medical Problems: (1) Pneumonia due to COVID-19 virus Status: Acute Comment Review of Relevant I have reviewed the following items stephon (where applicable) has been applied. Labs Laboratory Tests Test 02/05/20 12:15 02/05/20 12:40 02/05/20 20:20 02/06/20 02:20 O2 Saturation 81 % (92-99) Arterial Blood pH 7.49 (7.35-7.45) Arterial Blood pCO2 at Patient Temp 42 mmHg (35-46) Arterial Blood pO2 at Patient Temp 46 mmHg (75-108) Arterial Blood HCO3 31 mmol/L (21-28) Arterial Blood Base Excess 7 mmol/L (-3-3) FiO2 40 Heparin Anti-Xa Act, Unfractionated 0.47 IU/mL (0.30-0.70) White Blood Count 13.6 x10^3/uL (4.0-11.0) 14.2 x10^3/uL (4.0-11.0) Red Blood Count 4.18 x10^6/uL (3.50-5.40) 3.93 x10^6/uL (3.50-5.40) Hemoglobin 11.9 g/dL (12.0-15.5) 11.1 g/dL (12.0-15.5) Hematocrit 35.3 % (36.0-47.0) 33.5 % (36.0-47.0) Mean Corpuscular Volume 85 fL (79-100) 85 fL (79-100) Mean Corpuscular Hemoglobin 29 pg (25-35) 28 pg (25-35) Mean Corpuscular Hemoglobin Concent 34 g/dL (31-37) 33 g/dL (31-37) Red Cell Distribution Width 17.1 % (11.5-14.5) 17.0 % (11.5-14.5) Platelet Count 315 x10^3/uL (140-400) 309 x10^3/uL (140-400) Neutrophils (%) (Auto) 84 % (31-73) 78 % (31-73) Lymphocytes (%) (Auto) 9 % (24-48) 14 % (24-48) Monocytes (%) (Auto) 7 % (0-9) 7 % (0-9) Eosinophils (%) (Auto) 0 % (0-3) 1 % (0-3) Basophils (%) (Auto) 0 % (0-3) 1 % (0-3) Neutrophils # (Auto) 11.3 x10^3/uL (1.8-7.7) 11.1 x10^3/uL (1.8-7.7) Lymphocytes # (Auto) 1.2 x10^3/uL (1.0-4.8) 2.0 x10^3/uL (1.0-4.8) Monocytes # (Auto) 0.9 x10^3/uL (0.0-1.1) 0.9 x10^3/uL (0.0-1.1) Eosinophils # (Auto) 0.0 x10^3/uL (0.0-0.7) 0.1 x10^3/uL (0.0-0.7) Basophils # (Auto) 0.1 x10^3/uL (0.0-0.2) 0.1 x10^3/uL (0.0-0.2) Test 02/06/20 05:30 02/06/20 07:35 02/07/20 05:15 Sodium Level 143 mmol/L (136-145) 141 mmol/L (136-145) Potassium Level 4.0 mmol/L (3.5-5.1) 4.0 mmol/L (3.5-5.1) Chloride Level 105 mmol/L (98-107) 105 mmol/L (98-107) Carbon Dioxide Level 32 mmol/L (21-32) 26 mmol/L (21-32) Anion Gap 6 (6-14) 10 (6-14) Blood Urea Nitrogen 28 mg/dL (7-20) 20 mg/dL (7-20) Creatinine 0.7 mg/dL (0.6-1.0) 0.5 mg/dL (0.6-1.0) Estimated GFR (Cockcroft-Gault) 90.9 134.0 BUN/Creatinine Ratio 40 (6-20) 40 (6-20) Glucose Level 129 mg/dL (70-99) 126 mg/dL (70-99) Calcium Level 7.9 mg/dL (8.5-10.1) 8.5 mg/dL (8.5-10.1) Total Bilirubin 0.4 mg/dL (0.2-1.0) 0.7 mg/dL (0.2-1.0) Aspartate Amino Transf (AST/SGOT) 29 U/L (15-37) 41 U/L (15-37) Alanine Aminotransferase (ALT/SGPT) 36 U/L (14-59) 44 U/L (14-59) Alkaline Phosphatase 55 U/L (46-116) 57 U/L (46-116) Total Protein 6.4 g/dL (6.4-8.2) 7.1 g/dL (6.4-8.2) Albumin 2.5 g/dL (3.4-5.0) 2.9 g/dL (3.4-5.0) Albumin/Globulin Ratio 0.6 (1.0-1.7) 0.7 (1.0-1.7) O2 Saturation 92 % (92-99) Arterial Blood pH 7.50 (7.35-7.45) Arterial Blood pCO2 at Patient Temp 39 mmHg (35-46) Arterial Blood pO2 at Patient Temp 66 mmHg (75-108) Arterial Blood HCO3 30 mmol/L (21-28) Arterial Blood Base Excess 6 mmol/L (-3-3) FiO2 50% White Blood Count 17.7 x10^3/uL (4.0-11.0) Red Blood Count 4.00 x10^6/uL (3.50-5.40) Hemoglobin 11.2 g/dL (12.0-15.5) Hematocrit 34.2 % (36.0-47.0) Mean Corpuscular Volume 86 fL (79-100) Mean Corpuscular Hemoglobin 28 pg (25-35) Mean Corpuscular Hemoglobin Concent 33 g/dL (31-37) Red Cell Distribution Width 17.2 % (11.5-14.5) Platelet Count 296 x10^3/uL (140-400) Neutrophils (%) (Auto) 93 % (31-73) Lymphocytes (%) (Auto) 4 % (24-48) Monocytes (%) (Auto) 2 % (0-9) Eosinophils (%) (Auto) 0 % (0-3) Basophils (%) (Auto) 0 % (0-3) Neutrophils # (Auto) 16.5 x10^3/uL (1.8-7.7) Lymphocytes # (Auto) 0.8 x10^3/uL (1.0-4.8) Monocytes # (Auto) 0.4 x10^3/uL (0.0-1.1) Eosinophils # (Auto) 0.0 x10^3/uL (0.0-0.7) Basophils # (Auto) 0.0 x10^3/uL (0.0-0.2) Segmented Neutrophils % 94 % (35-66) Lymphocytes % 3 % (24-48) Monocytes % 3 % (0-10) Platelet Estimate Adequate (ADEQUATE) Anisocytosis Slight Laboratory Tests Test 02/07/20 05:15 White Blood Count 17.7 x10^3/uL (4.0-11.0) Red Blood Count 4.00 x10^6/uL (3.50-5.40) Hemoglobin 11.2 g/dL (12.0-15.5) Hematocrit 34.2 % (36.0-47.0) Mean Corpuscular Volume 86 fL (79-100) Mean Corpuscular Hemoglobin 28 pg (25-35) Mean Corpuscular Hemoglobin Concent 33 g/dL (31-37) Red Cell Distribution Width 17.2 % (11.5-14.5) Platelet Count 296 x10^3/uL (140-400) Neutrophils (%) (Auto) 93 % (31-73) Lymphocytes (%) (Auto) 4 % (24-48) Monocytes (%) (Auto) 2 % (0-9) Eosinophils (%) (Auto) 0 % (0-3) Basophils (%) (Auto) 0 % (0-3) Neutrophils # (Auto) 16.5 x10^3/uL (1.8-7.7) Lymphocytes # (Auto) 0.8 x10^3/uL (1.0-4.8) Monocytes # (Auto) 0.4 x10^3/uL (0.0-1.1) Eosinophils # (Auto) 0.0 x10^3/uL (0.0-0.7) Basophils # (Auto) 0.0 x10^3/uL (0.0-0.2) Segmented Neutrophils % 94 % (35-66) Lymphocytes % 3 % (24-48) Monocytes % 3 % (0-10) Platelet Estimate Adequate (ADEQUATE) Anisocytosis Slight Sodium Level 141 mmol/L (136-145) Potassium Level 4.0 mmol/L (3.5-5.1) Chloride Level 105 mmol/L (98-107) Carbon Dioxide Level 26 mmol/L (21-32) Anion Gap 10 (6-14) Blood Urea Nitrogen 20 mg/dL (7-20) Creatinine 0.5 mg/dL (0.6-1.0) Estimated GFR (Cockcroft-Gault) 134.0 BUN/Creatinine Ratio 40 (6-20) Glucose Level 126 mg/dL (70-99) Calcium Level 8.5 mg/dL (8.5-10.1) Total Bilirubin 0.7 mg/dL (0.2-1.0) Aspartate Amino Transf (AST/SGOT) 41 U/L (15-37) Alanine Aminotransferase (ALT/SGPT) 44 U/L (14-59) Alkaline Phosphatase 57 U/L (46-116) Total Protein 7.1 g/dL (6.4-8.2) Albumin 2.9 g/dL (3.4-5.0) Albumin/Globulin Ratio 0.7 (1.0-1.7) Medications Current Medications Acetaminophen (Tylenol) 1,000 mg 1X ONCE PO Last administered on 01/21/20at 17:00; Start 01/21/20 at 17:00; Stop 01/21/20 at 17:01; Status DC Ondansetron HCl (Zofran) 4 mg PRN Q8HRS PRN IV NAUSEA/VOMITING; Start 01/21/20 at 18:00; Stop 01/22/20 at 07:55; Status DC Dexamethasone Sodium Phosphate (Decadron) 6 mg 1X ONCE IVP Last administered on 01/21/20at 18:14; Start 01/21/20 at 18:00; Stop 01/21/20 at 18:01; Status DC Ceftriaxone Sodium (Rocephin) 1 gm 1X ONCE IVP Last administered on 01/21/20at 18:14; Start 01/21/20 at 18:00; Stop 01/21/20 at 18:01; Status DC Azithromycin 500 mg/Sodium Chloride 250 ml @ 250 mls/hr Q24H IV Last a dministered on 01/25/20at 19:00; Start 01/22/20 at 19:00; Stop 01/26/20 at 09:05; Status DC Azithromycin 250 ml @ 250 mls/hr 1X ONCE IV Last administered on 01/21/20at 18:25; Start 01/21/20 at 18:15; Stop 01/21/20 at 19:14; Status DC Dexamethasone Sodium Phosphate (Decadron) 6 mg DAILY IVP Last administered on 02/06/20at 09:17; Start 01/22/20 at 09:00; Stop 02/06/20 at 14:50; Status DC Ceftriaxone Sodium (Rocephin) 1 gm Q24H IVP Last administered on 01/29/20at 20:14; Start 01/22/20 at 20:00; Stop 01/30/20 at 16:07; Status DC Azithromycin 250 ml @ 250 mls/hr 1X ONCE IV ; Start 01/21/20 at 19:45; Stop 01/21/20 at 20:44; Status UNV Acetaminophen (Tylenol) 650 mg PRN Q6HRS PRN PO Headaches, Temp > 101.5' Last administered on 01/25/20at 20:45; Start 01/21/20 at 19:45 Ondansetron HCl (Zofran) 4 mg PRN Q6HRS PRN IVP NAUSEA/VOMITING; Start 01/21/20 at 19:45 Al Hydroxide/Mg Hydroxide (Mylanta Plus Xs) 30 ml PRN Q3HRS PRN PO HEARTBURN / GAS; Start 01/21/20 at 19:45 Famotidine (Pepcid) 20 mg BID PO Last administered on 02/05/20at 07:56; Start 01/21/20 at 21:00; Stop 02/05/20 at 20:05; Status DC Enoxaparin Sodium (Lovenox 40mg Syringe) 40 mg Q24H SQ Last administered on 01/21/20at 21:07; Start 01/21/20 at 20:00; Stop 01/22/20 at 10:45; Status DC Sodium Chloride (Normal Saline Flush) 3 ml QSHIFT PRN IV AFTER MEDS AND BLOOD DRAWS; Start 01/21/20 at 19:45 Senna/Docusate Sodium (Senna Plus) 1 tab BID PO Last administered on 02/05/20at 07:56; Start 01/21/20 at 21:00 Magnesium Hydroxide (Milk Of Magnesia) 2,400 mg PRN Q12HR PRN PO CONSTIPATION; Start 01/21/20 at 19:45 Sterile Water (WATER for RESP) 1,000 ml CONT PRN INH VIA VAPOTHERM DEVICE Last administered on 01/23/20at 12:46; Start 01/22/20 at 04:30; Stop 02/05/20 at 09:43; Status DC Lactobacillus Rhamnosus (Culturelle) 1 cap BID PO Last administered on 02/04/20at 07:15; Start 01/22/20 at 09:00; Stop 02/04/20 at 10:38; Status DC Non-Formulary Medication 1 ea/ Sodium Chloride 210 ml @ 420 mls/hr ONCE ONCE IV Last administered on 01/22/20at 10:44; Start 01/22/20 at 11:00; Stop 01/22/20 at 11:29; Status DC Non-Formulary Medication 1 ea/ Sodium Chloride 230 ml @ 460 mls/hr DAILY IV Last administered on 01/26/20at 09:58; Start 01/23/20 at 09:00; Stop 01/26/20 at 09:29; Status DC Enoxaparin Sodium (Lovenox 40mg Syringe) 40 mg BID SQ Last administered on 01/30/20at 20:39; Start 01/22/20 at 11:00; Stop 01/30/20 at 20:57; Status DC Lorazepam (Ativan Inj) 0.5 mg PRN Q4HRS PRN IVP ANXIETY / AGITATION; Start 01/23/20 at 21:00 Lorazepam (Ativan Inj) 0.05 mg 1X ONCE IVP Last administered on 01/23/20at 21:13; Start 01/23/20 at 21:15; Stop 01/23/20 at 21:31; Status DC Fentanyl Citrate 30 ml @ 0 mls/hr CONT PRN IV SEE PROTOCOL Last administered on 02/01/20at 21:15; Start 01/23/20 at 22:45; Stop 02/02/20 at 02:27; Status DC Propofol 100 ml @ 0 mls/hr CONT PRN IV SEE PROTOCOL Last administered on 02/06/20at 04:59; Start 01/23/20 at 22:45; Stop 02/06/20 at 13:18; Status DC Midazolam HCl 100 ml @ 0 mls/hr CONT PRN IV SEE PROTOCOL Last administered on 02/04/20at 01:57; Start 01/23/20 at 22:45; Stop 02/06/20 at 13:18; Status DC Vecuronium [place] (Norcuron Bolus) 10 mg STK-MED ONCE IV ; Start 01/23/20 at 23:24; Stop 01/23/20 at 23:25; Status DC Vecuronium [place] (Norcuron Bolus) 60 mg 1X ONCE IV Last administered on 01/23/20at 23:30; Start 01/23/20 at 23:30; Stop 01/23/20 at 23:35; Status DC Norepinephrine Bitartrate 8 mg/ Dextrose 258 ml @ 20.666 mls/ hr CONT PRN IV PER PROTOCOL Last administered on 01/24/20at 12:28; Start 01/24/20 at 02:15 Vecuronium [place] (Norcuron Bolus) 6 mg PRN Q4HRS PRN IV SEDATION Last administered on 01/24/20at 15:40; Start 01/24/20 at 04:30; Stop 02/06/20 at 19:06; Status DC Succinylcholine Chloride (Anectine) 200 mg STK-MED ONCE .ROUTE ; Start 01/23/20 at 23:00; Stop 01/24/20 at 08:24; Status DC Etomidate (Amidate) 20 mg STK-MED ONCE IV ; Start 01/23/20 at 23:00; Stop 01/24/20 at 08:24; Status DC Ringer's Solution 1,000 ml @ 75 mls/hr [id number] IV Last administered on 01/25/20at 16:21; Start 01/24/20 at 12:30; Stop 01/26/20 at 09:17; Status DC Hydralazine HCl (Apresoline Inj) 10 mg PRN Q4HRS PRN IVP ELEVATED BP, SEE COMMENTS; Start 01/28/20 at 14:00 Heparin Sodium/ Dextrose 250 ml @ 17.6 mls/hr CONT PRN IV PER PROTOCOL Last administered on 02/05/20at 01:58; Start 01/30/20 at 21:00; Stop 02/05/20 at 20:07; Status DC Heparin Sodium (Porcine) (Heparin Sodium) 3,300 unit PRN Q6HRS PRN IV FOR UFH LEVEL LESS THAN 0.2; Start 01/30/20 at 21:00; Stop 02/06/20 at 16:22; Status DC Heparin Sodium (Porcine) (Heparin Sodium) 1,650 unit PRN Q6HRS PRN IV FOR UFH LEVEL 0.2 - 0.29 Last administered on 02/04/20at 15:13; Start 01/30/20 at 21:00; Stop 02/06/20 at 16:23; Status DC Heparin Sodium (Porcine) (Heparin Sodium) 8,700 unit 1X ONCE IV Last administered on 01/31/20at 08:20; Start 01/31/20 at 07:15; Stop 01/31/20 at 07:16; Status DC Fentanyl Citrate 55 ml @ 0 mls/hr CONT PRN PRN IV PAIN/SEDATION Last administered on 02/05/20at 02:06; Start 02/02/20 at 02:30; Stop 02/06/20 at 19:06; Status DC Nystatin (Nystatin Oral Susp) 5 ml BID SWSW Last administered on 02/06/20at 20:56; Start 02/02/20 at 09:00 Furosemide (Lasix) 40 mg 1X ONCE IVP Last administered on 02/04/20at 17:12; Start 02/04/20 at 16:00; Stop 02/04/20 at 16:01; Status DC Dexmedetomidine HCl 400 mcg/ Sodium Chloride 100 ml @ 0 mls/hr CONT PRN IV SEE COMMENTS Last administered on 02/06/20at 09:08; Start 02/05/20 at 07:30 Sodium Chloride 500 ml @ 500 mls/hr 1X PRN PRN IV ANXIETY / AGITATION; Start 02/05/20 at 07:30 Atropine Sulfate (ATROPINE 0.5mg SYRINGE) 0.5 mg PRN Q5MIN PRN IV SEE COMMENTS; Start 02/05/20 at 07:30 Info (Anti-Coagulation Monitoring By Pharmacy) 1 each PRN DAILY PRN MC SEE COMMENTS Last administered on 02/06/20at 16:27; Start 02/05/20 at 07:45 Famotidine (Pepcid Vial) 40 mg BID IVP Last administered on 02/07/20at 08:40; Start 02/05/20 at 21:00 Haloperidol Lactate (Haldol Inj) 5 mg PRN Q6HRS PRN IVP AGITATION; Start 02/06/20 at 15:00 Methylprednisolone Sodium Succinate (SOLU-Medrol 40MG VIAL) 40 mg Q12HR IV Last administered on 02/07/20at 08:40; Start 02/06/20 at 21:00 Diphenhydramine HCl (Benadryl) 50 mg 1X ONCE IVP Last administered on 02/06/20at 18:42; Start 02/06/20 at 18:45; Stop 02/06/20 at 18:46; Status DC Active Scripts Active Keflex (Cephalexin) 500 Mg Capsule 500 Mg PO QID 10 Days [place] 5-325 Tablet (Acetaminophen/Hydrocodone Bitart) 1 Each Tablet 1 Tab PO PRN Q6HRS PRN Vitals/I & O Vital Sign - Last 24 Hours 02/06/20 02/06/20 02/06/20 02/06/20 10:00 10:00 11:00 11:15 Pulse 50 60 Resp 32 30 B/P (MAP) 85/37 (53) 104/65 (78) Pulse Ox 94 98 98 94 O2 Delivery Nasal Cannula Nasal Cannula Nasal Cannula Nasal Cannula O2 Flow Rate 10.0 10.0 10.0 10.0 02/06/20 02/06/20 02/06/20 02/06/20 12:18 12:26 13:13 14:00 Temp 98.3 98.0 98.3 98.0 Pulse 65 67 76 Resp 30 35 35 B/P (MAP) 97/56 (70) 103/65 (78) 97/65 (76) Pulse Ox 100 98 98 O2 Delivery Nasal Cannula Nasal Cannula Nasal Cannula Nasal Cannula O2 Flow Rate 10.0 10.0 10.0 10.0 02/06/20 02/06/20 02/06/20 02/06/20 15:34 16:27 16:28 17:06 Pulse 72 87 86 Resp 35 30 30 B/P (MAP) 119/65 (83) 110/61 (77) 103/70 (81) Pulse Ox 98 94 90 O2 Delivery Nasal Cannula Nasal Cannula Nasal Cannula Nasal Cannula O2 Flow Rate 10.0 10.0 10.0 8.0 02/06/20 02/06/20 02/06/20 02/06/20 18:38 19:00 20:00 20:00 Temp 99.2 99.2 Pulse 88 79 85 Resp 30 33 37 B/P (MAP) 113/67 (82) 125/74 (91) 128/70 (89) Pulse Ox 89 93 90 O2 Delivery Nasal Cannula Nasal Cannula Nasal Cannula Nasal Cannula O2 Flow Rate 8.0 8.0 8.0 8.0 02/06/20 02/06/20 02/06/20 02/07/20 21:00 22:00 23:00 00:00 Temp 99.3 99.3 Pulse 82 83 92 78 Resp 24 33 31 39 B/P (MAP) 122/74 (90) 126/81 (96) 144/72 (96) 132/60 (84) Pulse Ox 92 93 91 90 O2 Delivery Nasal Cannula Nasal Cannula Nasal Cannula Nasal Cannula O2 Flow Rate 8.0 8.0 12.0 12.0 02/07/20 02/07/20 02/07/20 02/07/20 00:00 01:00 02:00 03:00 Pulse 74 84 82 Resp 31 34 39 B/P (MAP) 109/62 (78) 120/74 (89) 125/74 (91) Pulse Ox 90 92 92 O2 Delivery Nasal Cannula Venturi Mask Venturi Mask Venturi Mask O2 Flow Rate 12.0 02/07/20 02/07/20 02/07/20 02/07/20 04:00 04:00 05:00 06:00 Temp 99.3 99.3 Pulse 87 79 90 Resp 25 25 20 B/P (MAP) 132/72 (92) 131/75 (93) 134/83 (100) Pulse Ox 93 91 91 O2 Delivery Venturi Mask Venturi Mask Venturi Mask Venturi Mask 02/07/20 07:26 Pulse 90 Resp 36 B/P (MAP) 135/77 (96) Pulse Ox 92 O2 Delivery Venturi Mask Intake and Output 02/06/20 02/06/20 02/07/20 15:00 23:00 07:00 Output Total 425 ml 750 ml 420 ml Balance -425 ml -750 ml -420 ml Justicifation of Admission Dx: Justifications for Admission: Justification of Admission Dx: Yes Respiratory Failure: Severe Resp Distress THA NOBLE MD Feb 07, 2020 09:27
--- NOTE | 2020-02-07 10:06 | PDOC ---
Objective: Objective: No GI concerns per nurse - passing lots of gas, to have INSPECTOR [employer]UM[employer] eval, no bleeding. Vital Signs: Vital Signs Date Time Temp Pulse Resp B/P (MAP) Pulse Ox O2 Delivery O2 Flow Rate FiO2 02/07/20 07:26 90 36 135/77 (96) 92 Venturi Mask 02/07/20 04:00 99.3 99.3 02/07/20 02:00 Labs: Laboratory Tests Test 02/07/20 05:15 White Blood Count 17.7 x10^3/uL Red Blood Count 4.00 x10^6/uL Hemoglobin 11.2 g/dL Hematocrit 34.2 % Mean Corpuscular Volume 86 fL Mean Corpuscular Hemoglobin 28 pg Mean Corpuscular Hemoglobin Concent 33 g/dL Red Cell Distribution Width 17.2 % Platelet Count 296 x10^3/uL Neutrophils (%) (Auto) 93 % Lymphocytes (%) (Auto) 4 % Monocytes (%) (Auto) 2 % Eosinophils (%) (Auto) 0 % Basophils (%) (Auto) 0 % Neutrophils # (Auto) 16.5 x10^3/uL Lymphocytes # (Auto) 0.8 x10^3/uL Monocytes # (Auto) 0.4 x10^3/uL Eosinophils # (Auto) 0.0 x10^3/uL Basophils # (Auto) 0.0 x10^3/uL Segmented Neutrophils % 94 % Lymphocytes % 3 % Monocytes % 3 % Platelet Estimate Adequate Anisocytosis Slight Sodium Level 141 mmol/L Potassium Level 4.0 mmol/L Chloride Level 105 mmol/L Carbon Dioxide Level 26 mmol/L Anion Gap 10 Blood Urea Nitrogen 20 mg/dL Creatinine 0.5 mg/dL Estimated GFR (Cockcroft-Gault) 134.0 BUN/Creatinine Ratio 40 Glucose Level 126 mg/dL Calcium Level 8.5 mg/dL Total Bilirubin 0.7 mg/dL Aspartate Amino Transf (AST/SGOT) 41 U/L Alanine Aminotransferase (ALT/SGPT) 44 U/L Alkaline Phosphatase 57 U/L Total Protein 7.1 g/dL Albumin 2.9 g/dL Albumin/Globulin Ratio 0.7 PE: GEN:in COVID isolation in ICU LUNGS: breathing mas HEART: RR on monitor ABD: obese NEURO/PSYCH: awake and alert, waves to me A/P: Resp failure +COVID-19 - extubated 02/05 Blood in OG tube - no recurrent bleeding, Hgb stable Anemia - stable -- Stable GI-charlton, continue acid-tubing tester in some form. Justicifation of Admission Dx: Justifications for Admission: Justification of Admission Dx: Yes Respiratory Failure: Severe Resp Distress FAMILIA CLEMENTS Feb 07, 2020 10:06
[2020-02-07] MEDS ORDERED: IV NORMAL SALINE 1000ML BAG 1,000 ML IV ONE (10:15)
--- NOTE | 2020-02-07 12:16 | NUR ---
SS following up with discharge planning. SS reviewed pt chart and discussed with pt RN. Pt is currently on venturi mask. PT/OT/ST ordered. Pt COVID19 positive. Pt self pay. SS will continue to follow for discharge planning.
[2020-02-07] MEDS ORDERED: HEPARIN for IV BOLUS 10,000 UNIT/10 ML VIAL. IV PRN ×2 (14:30)
[2020-02-07] MEDS: ANTI-COAG MONITOR BY PHARMACY. MC PRN (14:40)
[2020-02-07] MEDS: HEPARIN 25,000UTS/250ML PREMIX 250 ML IV PRN (14:43)
--- NOTE | 2020-02-07 18:14 | NUR ---
Wound Care Wound care consult for wounds to upper buttocks. Photo assessed as pt is COVID positive. Pt slid off side of bed yesterday and wounds appeared afterward. THey appear to be 4 skin tears across bilateral buttocks. Recommend calazime cream to wounds BID and PRN. Discussed POC with Joana BEAL. WC will follow up next week.
--- NOTE | 2020-02-07 18:33 | NUR ---
Patient failed swallow test. Patient had a flat affect today. PT and OT worked with patient.
[2020-02-08 03:18] VITALS: BP 136/78
--- NOTE | 2020-02-08 06:43 | NUR ---
Pt transferred to room 676 from ICU. All belongings transferred with pt. Oriented pt to room and educated on use of call light. Bed alarm in place. Will continue with plan of care.
[2020-02-08] MEDS: HEPARIN 25,000UTS/250ML PREMIX 250 ML IV PRN ×2 (06:47→23:01)
[2020-02-08 07:59] VITALS: BP 123/61
[2020-02-08] MEDS: SENNOSIDES/DOCUSATE 8.6/50MG TABLET. PO SCH ×3 (09:00→20:38)
[2020-02-08] MEDS: NYSTATIN 100,000 UNITS/ML 5 ML ORAL.SUSP. SWSW SCH ×3 (09:00→20:38)
[2020-02-08] MEDS: FAMOTIDINE 20 MG/2 ML VIAL IVP SCH ×2 (09:56→20:46)
[2020-02-08] MEDS: methylPREDNISolone SOD SUCC PF 40 MG/ML VIAL. IV SCH ×2 (09:56→20:46)
[2020-02-08 11:34] VITALS: BP 105/46
--- NOTE | 2020-02-08 14:03 | PDOC ---
PULMONARY PROGRESS NOTES Subjective extubated 02/05, on 12 lpm, appears comfortable, sleep Vitals Vital Signs Date Time Temp Pulse Resp B/P (MAP) Pulse Ox O2 Delivery O2 Flow Rate FiO2 02/08/20 11:34 97.9 45 32 105/46 (65) 93 Nasal Cannula 12.0 97.9 Comments on appears comfortable sleep rrr no paradoxical abd motion no edema no rash Lungs: Clear Cardiovascular: S1, S2 Abdomen: Soft Extremities: Other (Edema) Labs Laboratory Tests Test 02/07/20 05:15 02/07/20 21:00 02/08/20 03:05 02/08/20 11:05 White Blood Count 17.7 x10^3/uL (4.0-11.0) Red Blood Count 4.00 x10^6/uL (3.50-5.40) Hemoglobin 11.2 g/dL (12.0-15.5) Hematocrit 34.2 % (36.0-47.0) Mean Corpuscular Volume 86 fL (79-100) Mean Corpuscular Hemoglobin 28 pg (25-35) Mean Corpuscular Hemoglobin Concent 33 g/dL (31-37) Red Cell Distribution Width 17.2 % (11.5-14.5) Platelet Count 296 x10^3/uL (140-400) Neutrophils (%) (Auto) 93 % (31-73) Lymphocytes (%) (Auto) 4 % (24-48) Monocytes (%) (Auto) 2 % (0-9) Eosinophils (%) (Auto) 0 % (0-3) Basophils (%) (Auto) 0 % (0-3) Neutrophils # (Auto) 16.5 x10^3/uL (1.8-7.7) Lymphocytes # (Auto) 0.8 x10^3/uL (1.0-4.8) Monocytes # (Auto) 0.4 x10^3/uL (0.0-1.1) Eosinophils # (Auto) 0.0 x10^3/uL (0.0-0.7) Basophils # (Auto) 0.0 x10^3/uL (0.0-0.2) Segmented Neutrophils % 94 % (35-66) Lymphocytes % 3 % (24-48) Monocytes % 3 % (0-10) Platelet Estimate Adequate (ADEQUATE) Anisocytosis Slight Sodium Level 141 mmol/L (136-145) Potassium Level 4.0 mmol/L (3.5-5.1) Chloride Level 105 mmol/L (98-107) Carbon Dioxide Level 26 mmol/L (21-32) Anion Gap 10 (6-14) Blood Urea Nitrogen 20 mg/dL (7-20) Creatinine 0.5 mg/dL (0.6-1.0) Estimated GFR (Cockcroft-Gault) 134.0 BUN/Creatinine Ratio 40 (6-20) Glucose Level 126 mg/dL (70-99) Calcium Level 8.5 mg/dL (8.5-10.1) Total Bilirubin 0.7 mg/dL (0.2-1.0) Aspartate Amino Transf (AST/SGOT) 41 U/L (15-37) Alanine Aminotransferase (ALT/SGPT) 44 U/L (14-59) Alkaline Phosphatase 57 U/L (46-116) Total Protein 7.1 g/dL (6.4-8.2) Albumin 2.9 g/dL (3.4-5.0) Albumin/Globulin Ratio 0.7 (1.0-1.7) Heparin Anti-Xa Act, Unfractionated 0.53 IU/mL (0.30-0.70) 0.83 IU/mL (0.30-0.70) 0.67 IU/mL (0.30-0.70) Laboratory Tests Test 02/07/20 21:00 02/08/20 03:05 02/08/20 11:05 Heparin Anti-Xa Act, Unfractionated 0.53 IU/mL (0.30-0.70) 0.83 IU/mL (0.30-0.70) 0.67 IU/mL (0.30-0.70) Medications Active Scripts Medications Dose Route/Sig Max Daily Dose Days Date Category Keflex (Cephalexin) 500 Mg Capsule 500 Mg PO QID 10 06/20/18 Rx [place] 5-325 Tablet (Acetaminophen/Hydrocodone Bitart) 1 Each Tablet 1 Tab PO PRN Q6HRS PRN 06/20/18 Rx Comments CXR IMPRESSION: 1. Widespread airspace disease, not significantly changed. 2. Stable position of tubes and lines. Impression . IMPRESSION: 1. Acute hypoxic respiratory failure secondary to COVID-19 pneumonia and sepsis. intubated 01/24/20 2. Abnormal chest x-ray with bilateral patchy infiltrates compatible with C OVID-19 pneumonia. COVID-19 + 3. Underlying obesity. 4. Hypertension 5. Hypotension- improved 6, COVID-19 sepsis--improved Status post convalescent serum 01/22 7. Presumptive thromboembolic disease related to COVID-19 8. Critical care myopathy 9. Delirium Plan . Extubated 02/05 Spoke with nurse continue current support, 02 titration Haldol prn avoid oversedation solumedrol 40 bid Cont. heparin for presumptive thromboembolic disease, will switch to Lovenox sometime next week currently off ABX Continue tube feeding for nutritional support GI prophylaxis w pepcivirginia Discussed with RN and RT BENNY ABDI MD Feb 08, 2020 14:03
[2020-02-08 15:59] VITALS: BP_SYST 126; BP_SYST 89; BP_DIAS 54; BP_DIAS 60
[2020-02-08 19:59] VITALS: BP 121/63
--- NOTE | 2020-02-08 21:41 | PDOC ---
GENERAL General: Patient examined chart reviewed today is hospital day 19 for this patient with acute hypoxic and hypercarbic respiratory failure secondary to COVID-19 pneumonia. She was intubated until 48 hours ago when finally extubated and unfortunately she continues to be quite dyspneic with high oxygen requirements. She has completed convalescent plasma and REM Dermasphere along with antibiotic treatment. She has multiple subspecialists involved and their assistance is appreciated. Unfortunately she failed her swallow study yesterday hopefully we can work with her and recover that swallow when she has better respiratory capacity. She may need to have ProcalAmine in the meanwhile we will reassess in the morning. Continue current management otherwise Problems: (1) Pneumonia due to COVID-19 virus (2) Respiratory failure VITAL SIGNS Vital Signs/I&O: Vital Signs Date Time Temp Pulse Resp B/P (MAP) Pulse Ox O2 Delivery O2 Flow Rate FiO2 02/08/20 19:59 98.4 49 20 121/63 (82) 93 Nasal Cannula 12.0 98.4 I & O0 02/07/20 02/07/20 02/08/20 15:00 23:00 07:00 Intake Total 0 ml 0 ml Output Total 510 ml 1400 ml Balance -510 ml -1400 ml 0 ml Patient is pleasant quite dyspneic little agitated tells me she is hungry HEENT exam is unremarkable for acute abnormality Chest bilateral equal air entry though diminished throughout dyspneic on exam Heart S1-S2 normal regular rate and rhythm no murmurs or gallops are noted Abdomen is obese soft nontender nondistended no masses organomegaly noted Extremity exam is unremarkable for acute abnormality ALLERGIES Allergies: Allergies Coded Allergies Type Severity Reaction Last Updated Verified ibuprofen Allergy Intermediate 06/20/18 Yes MEDS Medications: Current Medications Medications (Trade) Dose Ordered Sig/Wei Start Time Stop Time Status Last Admin Dose Admin Acetaminophen (Tylenol) 650 mg PRN Q6HRS PRN 01/21/20 19:45 01/25/20 20:45 Al Hydroxide/Mg Hydroxide (Mylanta Plus Xs) 30 ml PRN Q3HRS PRN 01/21/20 19:45 Atropine Sulfate (ATROPINE 0.5mg SYRINGE) 0.5 mg PRN Q5MIN PRN 02/05/20 07:30 Azithromycin 250 ml @ 250 mls/hr 1X ONCE 01/21/20 19:45 01/21/20 20:44 UNV Azithromycin 500 mg/Sodium Chloride 250 ml @ 250 mls/hr Q24H 01/22/20 19:00 01/26/20 09:05 DC 01/25/20 19:00 Ceftriaxone Sodium (Rocephin) 1 gm Q24H 01/22/20 20:00 01/30/20 16:07 DC 01/29/20 20:14 Dexamethasone Sodium Phosphate (Decadron) 6 mg DAILY 01/22/20 09:00 02/06/20 14:50 DC 02/06/20 09:17 Dexmedetomidine HCl 400 mcg/ Sodium Chloride 100 ml @ 0 mls/hr CONT PRN 02/05/20 07:30 02/06/20 09:08 Diphenhydramine HCl (Benadryl) 50 mg 1X ONCE 02/06/20 18:45 02/06/20 18:46 DC 02/06/20 18:42 Enoxaparin Sodium (Lovenox 40mg Syringe) 40 mg BID 01/22/20 11:00 01/30/20 20:57 DC 01/30/20 20:39 Etomidate (Amidate) 20 mg STK-MED ONCE 01/23/20 23:00 01/24/20 08:24 DC Famotidine (Pepcid Vial) 40 mg BID 02/05/20 21:00 02/08/20 20:46 Famotidine (Pepcid) 20 mg BID 01/21/20 21:00 02/05/20 20:05 DC 02/05/20 07:56 Fentanyl Citrate 55 ml @ 0 mls/hr CONT PRN PRN 02/02/20 02:30 02/06/20 19:06 DC 02/05/20 02:06 Furosemide (Lasix) 40 mg 1X ONCE 02/04/20 16:00 02/04/20 16:01 DC 02/04/20 17:12 Haloperidol Lactate (Haldol Inj) 5 mg PRN Q6HRS PRN 02/06/20 15:00 Heparin Sodium (Porcine) (Heparin Sodium) 1,500 unit PRN Q6HRS PRN 02/07/20 14:30 Heparin Sodium/ Dextrose 250 ml @ 15.776 mls/ hr CONT PRN 02/07/20 14:30 02/08/20 06:47 Hydralazine HCl (Apresoline Inj) 10 mg PRN Q4HRS PRN 01/28/20 14:00 Info (Anti-Coagulation Monitoring By Pharmacy) 1 each PRN DAILY PRN 02/05/20 07:45 02/07/20 14:40 Lactobacillus Rhamnosus (Culturelle) 1 cap BID 01/22/20 09:00 02/04/20 10:38 DC 02/04/20 07:15 Lorazepam (Ativan Inj) 0.05 mg 1X ONCE 01/23/20 21:15 01/23/20 21:31 DC 01/23/20 21:13 Magnesium Hydroxide (Milk Of Magnesia) 2,400 mg PRN Q12HR PRN 01/21/20 19:45 Methylprednisolone Sodium Succinate (SOLU-Medrol 40MG VIAL) 40 mg Q12HR 02/06/20 21:00 02/08/20 20:46 Midazolam HCl 100 ml @ 0 mls/hr CONT PRN 01/23/20 22:45 02/06/20 13:18 DC 02/04/20 01:57 Non-Formulary Medication 1 ea/ Sodium Chloride 230 ml @ 460 mls/hr DAILY 01/23/20 09:00 01/26/20 09:29 DC 01/26/20 09:58 Norepinephrine Bitartrate 8 mg/ Dextrose 258 ml @ 20.666 mls/ hr CONT PRN 01/24/20 02:15 01/24/20 12:28 Nystatin (Nystatin Oral Susp) 5 ml BID 02/02/20 09:00 02/06/20 20:56 Ondansetron HCl (Zofran) 4 mg PRN Q6HRS PRN 01/21/20 19:45 Propofol 100 ml @ 0 mls/hr CONT PRN 01/23/20 22:45 02/06/20 13:18 DC 02/06/20 04:59 Ringer's Solution 1,000 ml @ 75 mls/hr [id number] 01/24/20 12:30 01/26/20 09:17 DC 01/25/20 16:21 Senna/Docusate Sodium (Senna Plus) 1 tab BID 01/21/20 21:00 02/05/20 07:56 Sodium Chloride 1,000 ml @ 50 mls/hr 1X ONCE 02/07/20 10:15 02/08/20 06:14 DC 02/07/20 10:15 Sodium Chloride (Normal Saline Flush) 3 ml QSHIFT PRN 01/21/20 19:45 Sterile Water (WATER for RESP) 1,000 ml CONT PRN 01/22/20 04:30 02/05/20 09:43 DC 01/23/20 12:46 Succinylcholine Chloride (Anectine) 200 mg STK-MED ONCE 01/23/20 23:00 01/24/20 08:24 DC Vecuronium [place] (Norcuron Bolus) 6 mg PRN Q4HRS PRN 01/24/20 04:30 02/06/20 19:06 DC 01/24/20 15:40 LAB Lab: Laboratory Tests Test 02/08/20 03:05 02/08/20 11:05 02/08/20 18:03 Heparin Anti-Xa Act, Unfractionated 0.83 IU/mL (0.30-0.70) H 0.67 IU/mL (0.30-0.70) 0.79 IU/mL (0.30-0.70) H ASSESSMENT & PLAN A&P Plan as noted above This note was created using [employer] and may have omissions and/or errors due to the nature of real-time voice atm technician. Justicifation of Admission Dx: Justifications for Admission: Justification of Admission Dx: Yes Respiratory Failure: Severe Resp Distress NORMA MOREJON MD Feb 08, 2020 21:41
[2020-02-08 23:55] VITALS: BP 124/57
[2020-02-09 02:35] LABS: BASE EXCESS ABG 1 mmol/L (-3-3); HCO3 ABG 26 mmol/L (21-28); PCO2 ABG 39 mmHg (35-46); PO2 ABG 60 mmHg (75-108); SAT O2 ABG 89 % (92-99)
[2020-02-09 02:43] LABS: U PREG PATIENT NEGATIVE (NEG)
[2020-02-09 02:56] LABS: FIO2 ABG 100
--- NOTE | 2020-02-09 03:32 | NUR ---
Rapid Response Note: Responded to room 676 for rapid response. Pt had some respiratory distress, hyperventilating. Stating that she was per translation phone. Urine sample sent which was negative. Placed on 100% NRB. ABG drawn, results reviewed. Notified Dr. Momin, order for ultrasound to confirm negative . Remains on unit more relaxed, sats in mid 90s.
--- NOTE | 2020-02-09 03:41 | NUR ---
0215: Respiratory therapy called for pt in respiratory distress. Hyperventilating, sats in 60's on 12L per NC. Placed on nonrebreather and sats eventually to low 90's. 0245: Sats dropped into mid 80's. Rapid called. Pt. now saying she is 8 months and is in labor. Urine test obtained as well as an abg. 0300: Dr. Momin notified by Reuben BEAL from ICU. Ultrasound ordered to confirm negative test. Pt. is to remain on nonrebreather and this floor at this time.
[2020-02-09 03:58] VITALS: BP 118/64
--- NOTE | 2020-02-09 04:35 | RAD ---
OB ultrasound less than 14 weeks 02/09/2020 CLINICAL HISTORY: The Patient states she is 8 months . Negative test. Language barrier TECHNIQUE: Using the distended urinary bladder as a sonographic window, a real-time ultrasound examination of the pelvis was performed. Multiple images were obtained. FINDINGS: The uterus is within normal limits in size and echogenicity. It measures 7.9 x 6.6 x 4.9 cm in longitudinal, transverse, and AP dimensions. The endometrial echo complex measures 5 mm in thickness which is within normal limits. No gestational sac is seen within the uterus. No focal abnormality of the uterus is seen. The right ovary is normal in size and echogenicity. It measures 3.3 x 2.4 x 2.1 cm in size. The left ovary is not visualized due to overlying bowel gas. No adnexal mass is seen. No free fluid is noted. IMPRESSION: Negative study. No IUP is seen. Electronically signed by: Kayden Bates MD (02/09/2020 4:32 AM) [id number]
[2020-02-09 05:49] LABS: BASO % 0 % (0-3); EOS % 0 % (0-3); HEMATOCRIT 34.1 % (36.0-47.0); HEMOGLOBIN 11.4 g/dL (12.0-15.5); LYMPH # 0.7 x10^3/uL (1.0-4.8); LYMPH % 5 % (24-48); MEAN CORPUSCULAR HEMOGLOBIN 29 pg (25-35); MEAN CORPUSCULAR HGB CONC 33 g/dL (31-37); MEAN CORPUSCULAR VOLUME 86 fL (79-100); MONO # 0.5 x10^3/uL (0.0-1.1); MONO % 4 % (0-9); NEUT % 91 % (31-73); PLATELET COUNT 264 x10^3/uL (140-400); RED BLOOD COUNT 3.94 x10^6/uL (3.50-5.40); RED CELL DISTRIBUTION WIDTH 17.6 % (11.5-14.5); WHITE BLOOD COUNT 13.1 x10^3/uL (4.0-11.0)
[2020-02-09 05:56] LABS: ALBUMIN 3.1 g/dL (3.4-5.0); ALBUMIN/GLOBULIN RATIO 0.8 (1.0-1.7); CALCIUM 9.1 mg/dL (8.5-10.1); CREATININE 0.6 mg/dL (0.6-1.0); GFR 108.6; TOTAL BILIRUBIN 0.6 mg/dL (0.2-1.0); TOTAL PROTEIN 7.2 g/dL (6.4-8.2)
[2020-02-09 07:20] VITALS: BP 96/54
[2020-02-09] MEDS: NYSTATIN 100,000 UNITS/ML 5 ML ORAL.SUSP. SWSW SCH ×2 (09:00→19:56)
[2020-02-09] MEDS: SENNOSIDES/DOCUSATE 8.6/50MG TABLET. PO SCH ×2 (09:00→19:56)
[2020-02-09] MEDS: FAMOTIDINE 20 MG/2 ML VIAL IVP SCH ×2 (10:34→20:37)
[2020-02-09] MEDS: methylPREDNISolone SOD SUCC PF 40 MG/ML VIAL. IV SCH ×2 (10:34→20:37)
[2020-02-09 11:00] VITALS: BP 113/75
--- NOTE | 2020-02-09 13:10 | PDOC ---
PULMONARY PROGRESS NOTES Subjective extubated 02/05, on nrm, more alert, appears comfortable Vitals Vital Signs Date Time Temp Pulse Resp B/P (MAP) Pulse Ox O2 Delivery O2 Flow Rate FiO2 02/09/20 11:00 97.8 67 18 113/75 (88) 90 NonRebreather Mask 15.0 97.8 Comments on appears comfortable rrr no paradoxical abd motion no audible wheezing no edema no rash alert General: Alert Lungs: Clear Cardiovascular: S1, S2 Abdomen: Soft Extremities: Other (Edema) Labs Laboratory Tests Test 02/07/20 21:00 02/08/20 03:05 02/08/20 11:05 02/08/20 18:03 Heparin Anti-Xa Act, Unfractionated 0.53 IU/mL (0.30-0.70) 0.83 IU/mL (0.30-0.70) 0.67 IU/mL (0.30-0.70) 0.79 IU/mL (0.30-0.70) Test 02/08/20 23:00 02/09/20 02:34 02/09/20 02:35 02/09/20 05:00 Heparin Anti-Xa Act, Unfractionated 0.62 IU/mL (0.30-0.70) 0.38 IU/mL (0.30-0.70) O2 Saturation 89 % (92-99) Arterial Blood pH 7.43 (7.35-7.45) Arterial Blood pCO2 at Patient Temp 39 mmHg (35-46) Arterial Blood pO2 at Patient Temp 60 mmHg (75-108) Arterial Blood HCO3 26 mmol/L (21-28) Arterial Blood Base Excess 1 mmol/L (-3-3) FiO2 100 Urine Test Negative (NEG) White Blood Count 13.1 x10^3/uL (4.0-11.0) Red Blood Count 3.94 x10^6/uL (3.50-5.40) Hemoglobin 11.4 g/dL (12.0-15.5) Hematocrit 34.1 % (36.0-47.0) Mean Corpuscular Volume 86 fL (79-100) Mean Corpuscular Hemoglobin 29 pg (25-35) Mean Corpuscular Hemoglobin Concent 33 g/dL (31-37) Red Cell Distribution Width 17.6 % (11.5-14.5) Platelet Count 264 x10^3/uL (140-400) Neutrophils (%) (Auto) 91 % (31-73) Lymphocytes (%) (Auto) 5 % (24-48) Monocytes (%) (Auto) 4 % (0-9) Eosinophils (%) (Auto) 0 % (0-3) Basophils (%) (Auto) 0 % (0-3) Neutrophils # (Auto) 12.0 x10^3/uL (1.8-7.7) Lymphocytes # (Auto) 0.7 x10^3/uL (1.0-4.8) Monocytes # (Auto) 0.5 x10^3/uL (0.0-1.1) Eosinophils # (Auto) 0.0 x10^3/uL (0.0-0.7) Basophils # (Auto) 0.0 x10^3/uL (0.0-0.2) Sodium Level 140 mmol/L (136-145) Potassium Level 4.0 mmol/L (3.5-5.1) Chloride Level 104 mmol/L (98-107) Carbon Dioxide Level 27 mmol/L (21-32) Anion Gap 9 (6-14) Blood Urea Nitrogen 22 mg/dL (7-20) Creatinine 0.6 mg/dL (0.6-1.0) Estimated GFR (Cockcroft-Gault) 108.6 BUN/Creatinine Ratio 37 (6-20) Glucose Level 117 mg/dL (70-99) Calcium Level 9.1 mg/dL (8.5-10.1) Total Bilirubin 0.6 mg/dL (0.2-1.0) Aspartate Amino Transf (AST/SGOT) 26 U/L (15-37) Alanine Aminotransferase (ALT/SGPT) 38 U/L (14-59) Alkaline Phosphatase 83 U/L (46-116) Total Protein 7.2 g/dL (6.4-8.2) Albumin 3.1 g/dL (3.4-5.0) Albumin/Globulin Ratio 0.8 (1.0-1.7) Laboratory Tests Test 02/08/20 18:03 02/08/20 23:00 02/09/20 02:34 02/09/20 02:35 Heparin Anti-Xa Act, Unfractionated 0.79 IU/mL (0.30-0.70) 0.62 IU/mL (0.30-0.70) O2 Saturation 89 % (92-99) Arterial Blood pH 7.43 (7.35-7.45) Arterial Blood pCO2 at Patient Temp 39 mmHg (35-46) Arterial Blood pO2 at Patient Temp 60 mmHg (75-108) Arterial Blood HCO3 26 mmol/L (21-28) Arterial Blood Base Excess 1 mmol/L (-3-3) FiO2 100 Urine Test Negative (NEG) Test 02/09/20 05:00 White Blood Count 13.1 x10^3/uL (4.0-11.0) Red Blood Count 3.94 x10^6/uL (3.50-5.40) Hemoglobin 11.4 g/dL (12.0-15.5) Hematocrit 34.1 % (36.0-47.0) Mean Corpuscular Volume 86 fL (79-100) Mean Corpuscular Hemoglobin 29 pg (25-35) Mean Corpuscular Hemoglobin Concent 33 g/dL (31-37) Red Cell Distribution Width 17.6 % (11.5-14.5) Platelet Count 264 x10^3/uL (140-400) Neutrophils (%) (Auto) 91 % (31-73) Lymphocytes (%) (Auto) 5 % (24-48) Monocytes (%) (Auto) 4 % (0-9) Eosinophils (%) (Auto) 0 % (0-3) Basophils (%) (Auto) 0 % (0-3) Neutrophils # (Auto) 12.0 x10^3/uL (1.8-7.7) Lymphocytes # (Auto) 0.7 x10^3/uL (1.0-4.8) Monocytes # (Auto) 0.5 x10^3/uL (0.0-1.1) Eosinophils # (Auto) 0.0 x10^3/uL (0.0-0.7) Basophils # (Auto) 0.0 x10^3/uL (0.0-0.2) Heparin Anti-Xa Act, Unfractionated 0.38 IU/mL (0.30-0.70) Sodium Level 140 mmol/L (136-145) Potassium Level 4.0 mmol/L (3.5-5.1) Chloride Level 104 mmol/L (98-107) Carbon Dioxide Level 27 mmol/L (21-32) Anion Gap 9 (6-14) Blood Urea Nitrogen 22 mg/dL (7-20) Creatinine 0.6 mg/dL (0.6-1.0) Estimated GFR (Cockcroft-Gault) 108.6 BUN/Creatinine Ratio 37 (6-20) Glucose Level 117 mg/dL (70-99) Calcium Level 9.1 mg/dL (8.5-10.1) Total Bilirubin 0.6 mg/dL (0.2-1.0) Aspartate Amino Transf (AST/SGOT) 26 U/L (15-37) Alanine Aminotransferase (ALT/SGPT) 38 U/L (14-59) Alkaline Phosphatase 83 U/L (46-116) Total Protein 7.2 g/dL (6.4-8.2) Albumin 3.1 g/dL (3.4-5.0) Albumin/Globulin Ratio 0.8 (1.0-1.7) Medications Active Scripts Medications Dose Route/Sig Max Daily Dose Days Date Category Keflex (Cephalexin) 500 Mg Capsule 500 Mg PO QID 10 06/20/18 Rx [place] 5-325 Tablet (Acetaminophen/Hydrocodone Bitart) 1 Each Tablet 1 Tab PO PRN Q6HRS PRN 06/20/18 Rx Comments CXR IMPRESSION: 1. Widespread airspace disease, not significantly changed. 2. Stable position of tubes and lines. Impression . IMPRESSION: 1. Acute hypoxic respiratory failure secondary to COVID-19 pneumonia and sepsis. intubated 01/24/20, ext on 02/05 2. Abnormal chest x-ray with bilateral patchy infiltrates compatible with COV ID-19 pneumonia. COVID-19 + 3. Underlying obesity. ? [place] 4. Hypertension 5. Hypotension- resolved 6, COVID-19 sepsis--improved Status post convalescent serum 01/22 7. Presumptive thromboembolic disease related to COVID-19 8. Critical care myopathy 9. Delirium Plan . Extubated 02/05 Spoke with nurse continue current support, 02 titration, avoid oversedation Haldol prn avoid oversedation solumedrol 40 bid Cont. heparin for presumptive thromboembolic disease, will switch to Lovenox sometime next week currently off ABX Continue tube feeding for nutritional support GI prophylaxis w pepcid Discussed with RN and RT BENNY ABDI MD Feb 09, 2020 13:10
[2020-02-09 15:00] VITALS: BP 110/72
--- NOTE | 2020-02-09 15:23 | PDOC ---
GENERAL General: Patient examined chart reviewed she is slowly improving clinically though requiring high dose oxygen. She is in good spirits this afternoon tells me she is trying to be up and moving about her room. We appreciate subspecialty support will continue current management. Problems: (1) Pneumonia due to COVID-19 virus VITAL SIGNS Vital Signs/I&O: Vital Signs Date Time Temp Pulse Resp B/P (MAP) Pulse Ox O2 Delivery O2 Flow Rate FiO2 02/09/20 11:00 97.8 67 18 113/75 (88) 90 NonRebreather Mask 15.0 97.8 I & O 02/08/20 02/08/20 02/09/20 15:00 23:00 07:00 Output Total 500 ml Balance -500 ml In general the patient is resting little less dyspneic today still requiring high dose oxygen Neck is soft and supple no adenopathy or thyromegaly noted Chest bilateral equal air entry though diminished throughout no crackles or wheezes are noted Heart S1-S2 normal regular rate and rhythm no murmurs or gallops are noted Abdomen soft nontender nondistended no masses organomegaly noted Extremity exam is unremarkable for acute abnormality ALLERGIES Allergies: Allergies Coded Allergies Type Severity Reaction Last Updated Verified ibuprofen Allergy Intermediate 06/20/18 Yes MEDS Medications: Current Medications Medications (Trade) Dose Ordered Sig/Wei Start Time Stop Time Status Last Admin Dose Admin Acetaminophen (Tylenol) 650 mg PRN Q6HRS PRN 01/21/20 19:45 01/25/20 20:45 Al Hydroxide/Mg Hydroxide (Mylanta Plus Xs) 30 ml PRN Q3HRS PRN 01/21/20 19:45 Atropine Sulfate (ATROPINE 0.5mg SYRINGE) 0.5 mg PRN Q5MIN PRN 02/05/20 07:30 Azithromycin 250 ml @ 250 mls/hr 1X ONCE 01/21/20 19:45 01/21/20 20:44 UNV Azithromycin 500 mg/Sodium Chloride 250 ml @ 250 mls/hr Q24H 01/22/20 19:00 01/26/20 09:05 DC 01/25/20 19:00 Ceftriaxone Sodium (Rocephin) 1 gm Q24H 01/22/20 20:00 01/30/20 16:07 DC 01/29/20 20:14 Dexamethasone Sodium Phosphate (Decadron) 6 mg DAILY 01/22/20 09:00 02/06/20 14:50 DC 02/06/20 09:17 Dexmedetomidine HCl 400 mcg/ Sodium Chloride 100 ml @ 0 mls/hr CONT PRN 02/05/20 07:30 02/09/20 09:49 DC 02/06/20 09:08 Diphenhydramine HCl (Benadryl) 50 mg 1X ONCE 02/06/20 18:45 02/06/20 18:46 DC 02/06/20 18:42 Enoxaparin Sodium (Lovenox 40mg Syringe) 40 mg BID 01/22/20 11:00 01/30/20 20:57 DC 01/30/20 20:39 Etomidate (Amidate) 20 mg STK-MED ONCE 01/23/20 23:00 01/24/20 08:24 DC Famotidine (Pepcid Vial) 40 mg BID 02/05/20 21:00 02/09/20 10:34 Famotidine (Pepcid) 20 mg BID 01/21/20 21:00 02/05/20 20:05 DC 02/05/20 07:56 Fentanyl Citrate 55 ml @ 0 mls/hr CONT PRN PRN 02/02/20 02:30 02/06/20 19:06 DC 02/05/20 02:06 Furosemide (Lasix) 40 mg 1X ONCE 02/04/20 16:00 02/04/20 16:01 DC 02/04/20 17:12 Haloperidol Lactate (Haldol Inj) 5 mg PRN Q6HRS PRN 02/06/20 15:00 Heparin Sodium (Porcine) (Heparin Sodium) 1,500 unit PRN Q6HRS PRN 02/07/20 14:30 Heparin Sodium/ Dextrose 250 ml @ 15.776 mls/ hr CONT PRN 02/07/20 14:30 02/08/20 23:01 Hydralazine HCl (Apresoline Inj) 10 mg PRN Q4HRS PRN 01/28/20 14:00 Info (Anti-Coagulation Monitoring By Pharmacy) 1 each PRN DAILY PRN 02/05/20 07:45 02/07/20 14:40 Lactobacillus Rhamnosus (Culturelle) 1 cap BID 01/22/20 09:00 02/04/20 10:38 DC 02/04/20 07:15 Lorazepam (Ativan Inj) 0.05 mg 1X ONCE 01/23/20 21:15 01/23/20 21:31 DC 01/23/20 21:13 Magnesium Hydroxide (Milk Of Magnesia) 2,400 mg PRN Q12HR PRN 01/21/20 19:45 Methylprednisolone Sodium Succinate (SOLU-Medrol 40MG VIAL) 40 mg Q12HR 02/06/20 21:00 02/09/20 10:34 Midazolam HCl 100 ml @ 0 mls/hr CONT PRN 01/23/20 22:45 02/06/20 13:18 DC 02/04/20 01:57 Non-Formulary Medication 1 ea/ Sodium Chloride 230 ml @ 460 mls/hr DAILY 01/23/20 09:00 01/26/20 09:29 DC 01/26/20 09:58 Norepinephrine Bitartrate 8 mg/ Dextrose 258 ml @ 20.666 mls/ hr CONT PRN 01/24/20 02:15 02/09/20 09:50 DC 01/24/20 12:28 Nystatin (Nystatin Oral Susp) 5 ml BID 02/02/20 09:00 02/06/20 20:56 Ondansetron HCl (Zofran) 4 mg PRN Q6HRS PRN 01/21/20 19:45 Propofol 100 ml @ 0 mls/hr CONT PRN 01/23/20 22:45 02/06/20 13:18 DC 02/06/20 04:59 Ringer's Solution 1,000 ml @ 75 mls/hr [id number] 01/24/20 12:30 01/26/20 09:17 DC 01/25/20 16:21 Senna/Docusate Sodium (Senna Plus) 1 tab BID 01/21/20 21:00 02/05/20 07:56 Sodium Chloride 1,000 ml @ 50 mls/hr 1X ONCE 02/07/20 10:15 02/08/20 06:14 DC 02/07/20 10:15 Sodium Chloride (Normal Saline Flush) 3 ml QSHIFT PRN 01/21/20 19:45 Sterile Water (WATER for RESP) 1,000 ml CONT PRN 01/22/20 04:30 02/05/20 09:43 DC 01/23/20 12:46 Succinylcholine Chloride (Anectine) 200 mg STK-MED ONCE 01/23/20 23:00 01/24/20 08:24 DC Vecuronium [place] (Norcuron Bolus) 6 mg PRN Q4HRS PRN 01/24/20 04:30 02/06/20 19:06 DC 01/24/20 15:40 LAB Lab: Laboratory Tests Test 02/08/20 18:03 02/08/20 23:00 02/09/20 02:34 02/09/20 02:35 Heparin Anti-Xa Act, Unfractionated 0.79 IU/mL (0.30-0.70) H 0.62 IU/mL (0.30-0.70) O2 Saturation 89 % (92-99) L Arterial Blood pH 7.43 (7.35-7.45) Arterial Blood pCO2 at Patient Temp 39 mmHg (35-46) Arterial Blood pO2 at Patient Temp 60 mmHg (75-108) L Arterial Blood HCO3 26 mmol/L (21-28) Arterial Blood Base Excess 1 mmol/L (-3-3) FiO2 100 Urine Test Negative (NEG) Test 02/09/20 05:00 White Blood Count 13.1 x10^3/uL (4.0-11.0) H Red Blood Count 3.94 x10^6/uL (3.50-5.40) Hemoglobin 11.4 g/dL (12.0-15.5) L Hematocrit 34.1 % (36.0-47.0) L Mean Corpuscular Volume 86 fL (79-100) Mean Corpuscular Hemoglobin 29 pg (25-35) Mean Corpuscular Hemoglobin Concent 33 g/dL (31-37) Red Cell Distribution Width 17.6 % (11.5-14.5) H Platelet Count 264 x10^3/uL (140-400) Neutrophils (%) (Auto) 91 % (31-73) H Lymphocytes (%) (Auto) 5 % (24-48) L Monocytes (%) (Auto) 4 % (0-9) Eosinophils (%) (Auto) 0 % (0-3) Basophils (%) (Auto) 0 % (0-3) Neutrophils # (Auto) 12.0 x10^3/uL (1.8-7.7) H Lymphocytes # (Auto) 0.7 x10^3/uL (1.0-4.8) L Monocytes # (Auto) 0.5 x10^3/uL (0.0-1.1) Eosinophils # (Auto) 0.0 x10^3/uL (0.0-0.7) Basophils # (Auto) 0.0 x10^3/uL (0.0-0.2) Heparin Anti-Xa Act, Unfractionated 0.38 IU/mL (0.30-0.70) Sodium Level 140 mmol/L (136-145) Potassium Level 4.0 mmol/L (3.5-5.1) Chloride Level 104 mmol/L (98-107) Carbon Dioxide Level 27 mmol/L (21-32) Anion Gap 9 (6-14) Blood Urea Nitrogen 22 mg/dL (7-20) H Creatinine 0.6 mg/dL (0.6-1.0) Estimated GFR (Cockcroft-Gault) 108.6 BUN/Creatinine Ratio 37 (6-20) H Glucose Level 117 mg/dL (70-99) H Calcium Level 9.1 mg/dL (8.5-10.1) Total Bilirubin 0.6 mg/dL (0.2-1.0) Aspartate Amino Transferase (AST) 26 U/L (15-37) Alanine Aminotransferase (ALT) 38 U/L (14-59) Alkaline Phosphatase 83 U/L (46-116) Total Protein 7.2 g/dL (6.4-8.2) Albumin 3.1 g/dL (3.4-5.0) L Albumin/Globulin Ratio 0.8 (1.0-1.7) L Laboratory Tests 02/09/20 05:00 Laboratory Tests 02/09/20 05:00 ASSESSMENT & PLAN A&P Plan as noted above This note was created using [employer] and may have omissions and/or errors due to the nature of real-time voice public opinion survey taker. Justicifation of Admission Dx: Justifications for Admission: Justification of Admission Dx: Yes Respiratory Failure: Severe Resp Distress NORMA MOREJON MD Feb 09, 2020 15:23
[2020-02-09 19:00] VITALS: BP 118/66
[2020-02-09] MEDS: HEPARIN 25,000UTS/250ML PREMIX 250 ML IV PRN (20:36)
[2020-02-09 23:00] VITALS: BP 95/48
[2020-02-10 03:00] VITALS: BP 108/59
[2020-02-10 07:00] VITALS: BP 102/84
--- NOTE | 2020-02-10 08:36 | PDOC ---
PULMONARY PROGRESS NOTES Subjective extubated 02/05, Patient not more short of air she is more awake alert today following commands and directions Vitals Vital Signs Date Time Temp Pulse Resp B/P (MAP) Pulse Ox O2 Delivery O2 Flow Rate FiO2 02/10/20 07:00 97.8 60 19 102/84 (90) 91 Nasal Cannula 12.0 97.8 Comments Visual exam no respiratory distress no paroxysmal breathing pattern some mild edema, patient seen doing the pandemic Labs Laboratory Tests Test 02/08/20 11:05 02/08/20 18:03 02/08/20 23:00 02/09/20 02:34 Heparin Anti-Xa Act, Unfractionated 0.67 IU/mL (0.30-0.70) 0.79 IU/mL (0.30-0.70) 0.62 IU/mL (0.30-0.70) O2 Saturation 89 % (92-99) Arterial Blood pH 7.43 (7.35-7.45) Arterial Blood pCO2 at Patient Temp 39 mmHg (35-46) Arterial Blood pO2 at Patient Temp 60 mmHg (75-108) Arterial Blood HCO3 26 mmol/L (21-28) Arterial Blood Base Excess 1 mmol/L (-3-3) FiO2 100 Test 02/09/20 02:35 02/09/20 05:00 02/10/20 05:35 Urine Test Negative (NEG) White Blood Count 13.1 x10^3/uL (4.0-11.0) Red Blood Count 3.94 x10^6/uL (3.50-5.40) Hemoglobin 11.4 g/dL (12.0-15.5) Hematocrit 34.1 % (36.0-47.0) Mean Corpuscular Volume 86 fL (79-100) Mean Corpuscular Hemoglobin 29 pg (25-35) Mean Corpuscular Hemoglobin Concent 33 g/dL (31-37) Red Cell Distribution Width 17.6 % (11.5-14.5) Platelet Count 264 x10^3/uL (140-400) Neutrophils (%) (Auto) 91 % (31-73) Lymphocytes (%) (Auto) 5 % (24-48) Monocytes (%) (Auto) 4 % (0-9) Eosinophils (%) (Auto) 0 % (0-3) Basophils (%) (Auto) 0 % (0-3) Neutrophils # (Auto) 12.0 x10^3/uL (1.8-7.7) Lymphocytes # (Auto) 0.7 x10^3/uL (1.0-4.8) Monocytes # (Auto) 0.5 x10^3/uL (0.0-1.1) Eosinophils # (Auto) 0.0 x10^3/uL (0.0-0.7) Basophils # (Auto) 0.0 x10^3/uL (0.0-0.2) Heparin Anti-Xa Act, Unfractionated 0.38 IU/mL (0.30-0.70) 0.65 IU/mL (0.30-0.70) Sodium Level 140 mmol/L (136-145) Potassium Level 4.0 mmol/L (3.5-5.1) Chloride Level 104 mmol/L (98-107) Carbon Dioxide Level 27 mmol/L (21-32) Anion Gap 9 (6-14) Blood Urea Nitrogen 22 mg/dL (7-20) Creatinine 0.6 mg/dL (0.6-1.0) Estimated GFR (Cockcroft-Gault) 108.6 BUN/Creatinine Ratio 37 (6-20) Glucose Level 117 mg/dL (70-99) Calcium Level 9.1 mg/dL (8.5-10.1) Total Bilirubin 0.6 mg/dL (0.2-1.0) Aspartate Amino Transf (AST/SGOT) 26 U/L (15-37) Alanine Aminotransferase (ALT/SGPT) 38 U/L (14-59) Alkaline Phosphatase 83 U/L (46-116) Total Protein 7.2 g/dL (6.4-8.2) Albumin 3.1 g/dL (3.4-5.0) Albumin/Globulin Ratio 0.8 (1.0-1.7) Laboratory Tests Test 02/10/20 05:35 Heparin Anti-Xa Act, Unfractionated 0.65 IU/mL (0.30-0.70) Medications Active Scripts Medications Dose Route/Sig Max Daily Dose Days Date Category Keflex (Cephalexin) 500 Mg Capsule 500 Mg PO QID 10 06/20/18 Rx [place] 5-325 Tablet (Acetaminophen/Hydrocodone Bitart) 1 Each Tablet 1 Tab PO PRN Q6HRS PRN 06/20/18 Rx Comments CXR IMPRESSION: 1. Widespread airspace disease, not significantly changed. 2. Stable position of tubes and lines. Impression . IMPRESSION: 1. Acute hypoxic respiratory failure secondary to COVID-19 pneumonia and sepsis. intubated 01/24/20, ext on 02/05 2. Abnormal chest x-ray with bilateral patchy infiltrates compatible with COVID-19 pneumonia. COVID-19 + 3. Underlying obesity. ? ernesto 4. Hypertension 5. Hypotension- resolved 6, COVID-19 sepsis--improved Status post convalescent serum 01/22 7. Presumptive thromboembolic disease related to COVID-19 8. Critical care myopathy 9. Delirium, much improved Plan . Extubated 02/05 See orders, switch to Lovenox discontinue full dose heparin Discontinue all sedating medication Solu-Medrol once daily Up to chair, speech eval. LEIF COBB MD Feb 10, 2020 08:36
[2020-02-10] MEDS: NYSTATIN 100,000 UNITS/ML 5 ML ORAL.SUSP. SWSW SCH ×2 (09:00→20:02)
[2020-02-10] MEDS: SENNOSIDES/DOCUSATE 8.6/50MG TABLET. PO SCH ×2 (09:00→20:02)
--- NOTE | 2020-02-10 10:01 | PDOC ---
Objective: Objective: D/w nurse - no bleeding, still NPO, trying to stool but unsuccessful. Vital Signs: Vital Signs Date Time Temp Pulse Resp B/P (MAP) Pulse Ox O2 Delivery O2 Flow Rate FiO2 02/10/20 07:00 97.8 60 19 102/84 (90) 91 Nasal Cannula 12.0 97.8 Labs: Laboratory Tests Test 02/10/20 05:35 Heparin Anti-Xa Act, Unfractionated 0.65 IU/mL Imaging: OB US IMPRESSION: Negative study. No IUP is seen. 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 Pt just >24hrs p.extubation at the time of this eval. High risk of aspiration given abnl phonation quality, high RR and impaired hyol aryngeal excursion. Suspect inadequate airway closure and poss oropharyngeal delay r/t SOA and general weakness s/p extubation. Will f/u for progress toward safe po intake. Time NPO required underdetermined at this time. RECOMMENDATIONS: NPO meds and nutrition. DW RN Joana. NPO sign left to be posted in pt's rm. Will f/u per POC. PE: GEN: in COVID isolation LUNGS: 12L NC HEART: bradycardic A/P: COVID-19 resp failure, dysphagia Anemia - stable, no recurrent bleeding Constipation -- Try suppository. Justicifation of Admission Dx: Justifications for Admission: Justification of Admission Dx: Yes Respiratory Failure: Severe Resp Distress FAMILIA CLEMENTS Feb 10, 2020 10:01
--- NOTE | 2020-02-10 10:12 | PDOC ---
PROGRESS NOTES Assessment Problems Medical Problems: (1) Pneumonia due to COVID-19 virus Status: Acute Dysconjugate gaze, no recurrence, patient was in the midst of sedation and severe metabolic encephalopathy. Respiratory failure secondary to COVID-19 and sepsis Pneumonia, obesity, hypertension, anemia, protein-calorie malnutrition Plan Holding off on brain imaging studies given her neurological improvement Objective Vital Signs Date Time Temp Pulse Resp B/P (MAP) Pulse Ox O2 Delivery O2 Flow Rate FiO2 02/10/20 07:00 97.8 60 19 102/84 (90) 91 Nasal Cannula 12.0 97.8 Intake and Output 02/10/20 07:00 Intake Total 0 ml Output Total 650 ml Balance -650 ml Intake Oral 0 ml Output Urine Total 650 ml # Bowel Movements 1 PHYSICAL EXAM Alert, follows commands, Speaks only Vietnamese, knows location, month, year PERRL. EOMI. CN: no focal findings. Muscle tone: normal. Muscle strength: 4/5 DTR: 1+ Plantar reflex: flexor Gait: not examined in bed. Sensory exam: no abnormal findings. No cerebellar signs elicited. Review of Relevant I have reviewed the following items stephon (where applicable) has been applied. Labs Laboratory Tests Test 02/08/20 11:05 02/08/20 18:03 02/08/20 23:00 02/09/20 02:34 Heparin Anti-Xa Act, Unfractionated 0.67 IU/mL (0.30-0.70) 0.79 IU/mL (0.30-0.70) 0.62 IU/mL (0.30-0.70) O2 Saturation 89 % (92-99) Arterial Blood pH 7.43 (7.35-7.45) Arterial Blood pCO2 at Patient Temp 39 mmHg (35-46) Arterial Blood pO2 at Patient Temp 60 mmHg (75-108) Arterial Blood HCO3 26 mmol/L (21-28) Arterial Blood Base Excess 1 mmol/L (-3-3) FiO2 100 Test 02/09/20 02:35 02/09/20 05:00 02/10/20 05:35 Urine Test Negative (NEG) White Blood Count 13.1 x10^3/uL (4.0-11.0) Red Blood Count 3.94 x10^6/uL (3.50-5.40) Hemoglobin 11.4 g/dL (12.0-15.5) Hematocrit 34.1 % (36.0-47.0) Mean Corpuscular Volume 86 fL (79-100) Mean Corpuscular Hemoglobin 29 pg (25-35) Mean Corpuscular Hemoglobin Concent 33 g/dL (31-37) Red Cell Distribution Width 17.6 % (11.5-14.5) Platelet Count 264 x10^3/uL (140-400) Neutrophils (%) (Auto) 91 % (31-73) Lymphocytes (%) (Auto) 5 % (24-48) Monocytes (%) (Auto) 4 % (0-9) Eosinophils (%) (Auto) 0 % (0-3) Basophils (%) (Auto) 0 % (0-3) Neutrophils # (Auto) 12.0 x10^3/uL (1.8-7.7) Lymphocytes # (Auto) 0.7 x10^3/uL (1.0-4.8) Monocytes # (Auto) 0.5 x10^3/uL (0.0-1.1) Eosinophils # (Auto) 0.0 x10^3/uL (0.0-0.7) Basophils # (Auto) 0.0 x10^3/uL (0.0-0.2) Heparin Anti-Xa Act, Unfractionated 0.38 IU/mL (0.30-0.70) 0.65 IU/mL (0.30-0.70) Sodium Level 140 mmol/L (136-145) Potassium Level 4.0 mmol/L (3.5-5.1) Chloride Level 104 mmol/L (98-107) Carbon Dioxide Level 27 mmol/L (21-32) Anion Gap 9 (6-14) Blood Urea Nitrogen 22 mg/dL (7-20) Creatinine 0.6 mg/dL (0.6-1.0) Estimated GFR (Cockcroft-Gault) 108.6 BUN/Creatinine Ratio 37 (6-20) Glucose Level 117 mg/dL (70-99) Calcium Level 9.1 mg/dL (8.5-10.1) Total Bilirubin 0.6 mg/dL (0.2-1.0) Aspartate Amino Transf (AST/SGOT) 26 U/L (15-37) Alanine Aminotransferase (ALT/SGPT) 38 U/L (14-59) Alkaline Phosphatase 83 U/L (46-116) Total Protein 7.2 g/dL (6.4-8.2) Albumin 3.1 g/dL (3.4-5.0) Albumin/Globulin Ratio 0.8 (1.0-1.7) Laboratory Tests Test 02/10/20 05:35 Heparin Anti-Xa Act, Unfractionated 0.65 IU/mL (0.30-0.70) Medications Current Medications Acetaminophen (Tylenol) 1,000 mg 1X ONCE PO Last administered on 01/21/20 17:00; Start 01/21/20 at 17:00; Stop 01/21/20 at 17:01; Status DC Ondansetron HCl (Zofran) 4 mg PRN Q8HRS PRN IV NAUSEA/VOMITING; Start 01/21/20 at 18:00; Stop 01/22/20 at 07:55; Status DC Dexamethasone Sodium Phosphate (Decadron) 6 mg 1X ONCE IVP Last administered on 01/21/20at 18:14; Start 01/21/20 at 18:00; Stop 01/21/20 at 18:01; Status DC Ceftriaxone Sodium (Rocephin) 1 gm 1X ONCE IVP Last administered on 01/21/20at 18:14; Start 01/21/20 at 18:00; Stop 01/21/20 at 18:01; Status DC Azithromycin 500 mg/Sodium Chloride 250 ml @ 250 mls/hr Q24H IV Last administered on 01/25/20at 19:00; Start 01/22/20 at 19:00; Stop 01/26/20 at 09:05; Status DC Azithromycin 250 ml @ 250 mls/hr 1X ONCE IV Last administered on 01/21/20at 18:25; Start 01/21/20 at 18:15; Stop 01/21/20 at 19:14; Status DC Dexamethasone Sodium Phosphate (Decadron) 6 mg DAILY IVP Last administered on 02/06/20 09:17; Start 01/22/20 at 09:00; Stop 02/06/20 at 14:50; Status DC Ceftriaxone Sodium (Rocephin) 1 gm Q24H IVP Last administered on 01/29/20at 20:14; Start 01/22/20 at 20:00; Stop 01/30/20 at 16:07; Status DC Azithromycin 250 ml @ 250 mls/hr 1X ONCE IV ; Start 01/21/20 at 19:45; Stop 01/21/20 at 20:44; Status UNV Acetaminophen (Tylenol) 650 mg PRN Q6HRS PRN PO Headaches, Temp > 101.5' Last administered on 01/25/20at 20:45; Start 01/21/20 at 19:45 Ondansetron HCl (Zofran) 4 mg PRN Q6HRS PRN IVP NAUSEA/VOMITING; Start 01/21/20 at 19:45 Al Hydroxide/Mg Hydroxide (Mylanta Plus Xs) 30 ml PRN Q3HRS PRN PO HEARTBURN / GAS; Start 01/21/20 at 19:45 Famotidine (Pepcid) 20 mg BID PO Last administered on 02/05/20at 07:56; Start 01/21/20 at 21:00; Stop 02/05/20 at 20:05; Status DC Enoxaparin Sodium (Lovenox 40mg Syringe) 40 mg Q24H SQ Last administered on 01/21/20at 21:07; Start 01/21/20 at 20:00; Stop 01/22/20 at 10:45; Status DC Sodium Chloride (Normal Saline Flush) 3 ml QSHIFT PRN IV AFTER MEDS AND BLOOD DRAWS; Start 01/21/20 at 19:45 Senna/Docusate Sodium (Senna Plus) 1 tab BID PO Last administered on 02/05/20at 07:56; Start 01/21/20 at 21:00 Magnesium Hydroxide (Milk Of Magnesia) 2,400 mg PRN Q12HR PRN PO CONSTIPATION; Start 01/21/20 at 19:45 Sterile Water (WATER for RESP) 1,000 ml CONT PRN INH VIA VAPOTHERM DEVICE Last administered on 01/23/20at 12:46; Start 01/22/20 at 04:30; Stop 02/05/20 at 09:43; Status DC Lactobacillus Rhamnosus (Culturelle) 1 cap BID PO Last administered on 02/04/20at 07:15; Start 01/22/20 at 09:00; Stop 02/04/20 at 10:38; Status DC Non-Formulary Medication 1 ea/ Sodium Chloride 210 ml @ 420 mls/hr ONCE ONCE IV Last administered on 01/22/20at 10:44; Start 01/22/20 at 11:00; Stop 01/22/20 at 11:29; Status DC Non-Formulary Medication 1 ea/ Sodium Chloride 230 ml @ 460 mls/hr DAILY IV Last administered on 01/26/20at 09:58; Start 01/23/20 at 09:00; Stop 01/26/20 at 09:29; Status DC Enoxaparin Sodium (Lovenox 40mg Syringe) 40 mg BID SQ Last administered on 01/30/20at 20:39; Start 01/22/20 at 11:00; Stop 01/30/20 at 20:57; Status DC Lorazepam (Ativan Inj) 0.5 mg PRN Q4HRS PRN IVP ANXIETY / AGITATION 1ST CHOICE Last administered on 02/09/20at 02:13; Start 01/23/20 at 21:00 Lorazepam (Ativan Inj) 0.05 mg 1X ONCE IVP Last administered on 01/23/20at 21:13; Start 01/23/20 at 21:15; Stop 01/23/20 at 21:31; Status DC Fentanyl Citrate 30 ml @ 0 mls/hr CONT PRN IV SEE PROTOCOL Last administered on 02/01/20at 21:15; Start 01/23/20 at 22:45; Stop 02/02/20 at 02:27; Status DC Propofol 100 ml @ 0 mls/hr CONT PRN IV SEE PROTOCOL Last administered on 02/06/20at 04:59; Start 01/23/20 at 22:45; Stop 02/06/20 at 13:18; Status DC Midazolam HCl 100 ml @ 0 mls/hr CONT PRN IV SEE PROTOCOL Last administered on 02/04/20at 01:57; Start 01/23/20 at 22:45; Stop 02/06/20 at 13:18; Status DC Vecuronium [place] (Norcuron Bolus) 10 mg STK-MED ONCE IV ; Start 01/23/20 at 23:24; Stop 01/23/20 at 23:25; Status DC Vecuronium [place] (Norcuron Bolus) 60 mg 1X ONCE IV Last administered on 01/23/20at 23:30; Start 01/23/20 at 23:30; Stop 01/23/20 at 23:35; Status DC Norepinephrine Bitartrate 8 mg/ Dextrose 258 ml @ 20.666 mls/ hr CONT PRN IV PER PROTOCOL Last administered on 01/24/20at 12:28; Start 01/24/20 at 02:15; Stop 02/09/20 at 09:50; Status DC Vecuronium [place] (Norcuron Bolus) 6 mg PRN Q4HRS PRN IV SEDATION Last administered on 01/24/20at 15:40; Start 01/24/20 at 04:30; Stop 02/06/20 at 19:06; Status DC Succinylcholine Chloride (Anectine) 200 mg STK-MED ONCE .ROUTE ; Start 01/23/20 at 23:00; Stop 01/24/20 at 08:24; Status DC Etomidate (Amidate) 20 mg STK-MED ONCE IV ; Start 01/23/20 at 23:00; Stop 01/24/20 at 08:24; Status DC Ringer's Solution 1,000 ml @ 75 mls/hr [id number] IV Last administered on 01/25/20at 16:21; Start 01/24/20 at 12:30; Stop 01/26/20 at 09:17; Status DC Hydralazine HCl (Apresoline Inj) 10 mg PRN Q4HRS PRN IVP ELEVATED BP, SEE COMMENTS; Start 01/28/20 at 14:00 Heparin Sodium/ Dextrose 250 ml @ 17.6 mls/hr CONT PRN IV PER PROTOCOL Last administered on 02/05/20at 01:58; Start 01/30/20 at 21:00; Stop 02/05/20 at 20:07; Status DC Heparin Sodium (Porcine) (Heparin Sodium) 3,300 unit PRN Q6HRS PRN IV FOR UFH LEVEL LESS THAN 0.2; Start 01/30/20 at 21:00; Stop 02/06/20 at 16:22; Status DC Heparin Sodium (Porcine) (Heparin Sodium) 1,650 unit PRN Q6HRS PRN IV FOR UFH LEVEL 0.2 - 0.29 Last administered on 02/04/20at 15:13; Start 01/30/20 at 21:00; Stop 02/06/20 at 16:23; Status DC Heparin Sodium (Porcine) (Heparin Sodium) 8,700 unit 1X ONCE IV Last administered on 01/31/20 08:20; Start 01/31/20 at 07:15; Stop 01/31/20 at 07:16; Status DC Fentanyl Citrate 55 ml @ 0 mls/hr CONT PRN PRN IV PAIN/SEDATION Last administered on 02/05/20 02:06; Start 02/02/20 at 02:30; Stop 02/06/20 at 19:06; Status DC Nystatin (Nystatin Oral Susp) 5 ml BID SWSW Last administered on 02/06/20at 20:56; Start 02/02/20 at 09:00 Furosemide (Lasix) 40 mg 1X ONCE IVP Last administered on 02/04/20 17:12; Start 02/04/20 at 16:00; Stop 02/04/20 at 16:01; Status DC Dexmedetomidine HCl 400 mcg/ Sodium Chloride 100 ml @ 0 mls/hr CONT PRN IV SEE COMMENTS Last administered on 02/06/20at 09:08; Start 02/05/20 at 07:30; Stop 02/09/20 at 09:49; Status DC Sodium Chloride 500 ml @ 500 mls/hr 1X PRN PRN IV ANXIETY / AGITATION; Start 02/05/20 at 07:30 Atropine Sulfate (ATROPINE 0.5mg SYRINGE) 0.5 mg PRN Q5MIN PRN IV SEE COMMENTS; Start 02/05/20 at 07:30 Info (Anti-Coagulation Monitoring By Pharmacy) 1 each PRN DAILY PRN MC SEE COMMENTS Last administered on 02/07/20at 14:40; Start 02/05/20 at 07:45 Famotidine (Pepcid Vial) 40 mg BID IVP Last administered on 02/09/20at 20:37; Start 02/05/20 at 21:00 Haloperidol Lactate (Haldol Inj) 5 mg PRN Q6HRS PRN IVP AGITATION (2ND CHOICE); Start 02/06/20 at 15:00 Methylprednisolone Sodium Succinate (SOLU-Medrol 40MG VIAL) 40 mg Q12HR IV Last administered on 02/09/20at 20:37; Start 02/06/20 at 21:00 Diphenhydramine HCl (Benadryl) 50 mg 1X ONCE IVP Last administered on 02/06/20at 18:42; Start 02/06/20 at 18:45; Stop 02/06/20 at 18:46; Status DC Sodium Chloride 1,000 ml @ 50 mls/hr 1X ONCE IV Last administered on 02/07/20at 10:15; Start 02/07/20 at 10:15; Stop 02/08/20 at 06:14; Status DC Heparin Sodium/ Dextrose 250 ml @ 15.776 mls/ hr CONT PRN IV PER PROTOCOL Last administered on 02/09/20at 20:36; Start 02/07/20 at 14:30 Heparin Sodium (Porcine) (Heparin Sodium) 2,950 unit PRN Q6HRS PRN IV FOR UFH LEVEL LESS THAN 0.2; Start 02/07/20 at 14:30 Heparin Sodium (Porcine) (Heparin Sodium) 1,500 unit PRN Q6HRS PRN IV FOR UFH LEVEL 0.2 - 0.29; Start 02/07/20 at 14:30 Bisacodyl (Dulcolax Supp) 10 mg 1X ONCE [place] ; Start 02/10/20 at 10:15; Stop 02/10/20 at 10:16 Active Scripts Active Keflex (Cephalexin) 500 Mg Capsule 500 Mg PO QID 10 Days [place] 5-325 Tablet (Acetaminophen/Hydrocodone Bitart) 1 Each Tablet 1 Tab PO PRN Q6HRS PRN Vitals/I & O Vital Sign - Last 24 Hours 02/09/20 02/09/20 02/09/20 02/09/20 11:00 15:00 19:00 19:10 Temp 97.8 97.4 97.0 97.8 97.4 97.0 Pulse 67 54 50 Resp 18 18 20 B/P (MAP) 113/75 (88) 110/72 (85) 118/66 (83) Pulse Ox 90 96 97 O2 Delivery NonRebreather Mask NonRebreather Mask Nasal Cannula Nasal Cannula O2 Flow Rate 15.0 15.0 12.0 12.0 02/09/20 02/10/20 02/10/20 23:00 03:00 07:00 Temp 97.2 97.1 97.8 97.2 97.1 97.8 Pulse 57 56 60 Resp 22 20 19 B/P (MAP) 95/48 (64) 108/59 (75) 102/84 (90) Pulse Ox 93 92 91 O2 Delivery Nasal Cannula Nasal Cannula Nasal Cannula O2 Flow Rate 12.0 12.0 12.0 Intake and Output 02/09/20 02/09/20 02/10/20 15:00 23:00 07:00 Intake Total 0 ml Output Total 650 ml Balance -650 ml Justicifation of Admission Dx: Justifications for Admission: Justification of Admission Dx: Yes Respiratory Failure: Severe Resp Distress ANA ROBERT MD Feb 10, 2020 10:12
[2020-02-10] MEDS: BISACODYL 10 MG SUPP.RECT. PR ONE ×2 (10:15→10:33)
[2020-02-10] MEDS: FAMOTIDINE 20 MG/2 ML VIAL IVP SCH ×2 (10:31→20:37)
[2020-02-10] MEDS: methylPREDNISolone SOD SUCC PF 40 MG/ML VIAL. IV SCH (10:31)
[2020-02-10 10:43] VITALS: BP 117/69
--- NOTE | 2020-02-10 13:45 | PDOC ---
[employer] PROGRESS NOTE Chief Complaint Chief Complaint Oropharyngeal Dysphagia pending repeat speech evaluation Acute Hypoxic Respiratory Failure Secondary to COVID-19 and sepsis pneumonia multifocal pulmonary infiltrates.// follow-up to resolution. Morbid Obesity, BMI 44 HTN NORMOCYTIC ANEMIA severe protein-caloric malnutrition Critical care myopathy 35 MIN CC TIME The patient was evaluated during the global COVID-19 pandemic, and that diagno sis was suspected/considered upon their initial presentation. Their evaluation, treatment and testing was consistent with current guidelines for patients who present with complaints or symptoms that may be related to COVID-19. History of Present Illness History of Present Illness Ms Hackett is a 44-year-old female, who had been having fever and shortness of breath for about a week or so. The patient had outpatient COVID-19 done through [facility] on 01/13/2020 and was informed of positive results on 01/14/2020, which was positive and because of more shortness of epi ath, she decided to come in. The patient is requiring significant oxygen support. The patient denies any nausea, vomiting or diarrhea. Denies any other complaints other than shortness of breath. 7/4: very awake ealier on 10 versed, and IV fent, doing well on vent, discussed with RT, going down no Fi02 to 65% 7/5: weaning PEEP and oxygen a little, doing a little better, cont current 02/02: weaning slowly, no event, improving slowly 7/8: Still on vent, awake, trying to self extubate. D/w pulm to stay on vent, BiPAP. WBC 16.7 02/05: WBC down to 14.2, afebrile heart rate in 40s comfortable on vent overnight. When sedation was weaned she almost self extubated. ABG 7. 50/39/66 on 50% FiO2 PEEP of 5. COVID-19 CRITERIA: The patient was evaluated during the global COVID-19 pandemic, and that diagnosis was suspected/considered upon their initial presentation. Their evaluation, treatment and testing was consistent with current guidelines for patients who present with complaints or symptoms that may be related to COVID-19. Patient has been downgraded from ICU and underwent swallow study and failed. We are pending repeat speech evaluation. If patient fails again, then NGT needs to be considered for nutrition. Will start D5 1/2NS for now Vitals/I&O Vitals/I&O: Vital Signs Date Time Temp Pulse Resp B/P (MAP) Pulse Ox O2 Delivery O2 Flow Rate FiO2 02/10/20 10:43 97.4 51 19 117/69 (85) 97 Nasal Cannula 14.0 97.4 I & O 02/09/20 02/09/20 02/10/20 15:00 23:00 07:00 Intake Total 0 ml Output Total 650 ml Balance -650 ml Physical Exam Physical Exam: GENERAL: NAD HEENT: Pupils equal, disconjucated gaze, No conjunctival lesion, ETT, OGT NECK: Supple LUNGS: Diminished aeration bases HEART: S1, S2 regular, will 50s ABDOMEN: Obese, soft, + BS, no guarding : Vasquez EXTREMITIES: Generalized edema. SCDs, bilaterally SKIN: warm to touch. No signs of infection NEUROLOGIC: Unresponsive/sedated Right-sided CVC without signs of infection General: Other Heart: Regular rate Lungs: Clear Abdomen: Other Extremities: No cyanosis Skin: No breakdown Labs Labs: Laboratory Tests Test 02/10/20 05:35 Heparin Anti-Xa Act, Unfractionated 0.65 IU/mL (0.30-0.70) Assessment and Plan Assessmemt and Plan Problems Medical Problems: (1) Pneumonia due to COVID-19 virus Status: Acute I have reviewed the following labs Comment Review of Relevant I have reviewed the following items stephon (where applicable) has been applied. Medications: Current Medications Medications (Trade) Dose Ordered Sig/Wei Route PRN Reason Start Time Stop Time Status Last Admin Dose Admin Bisacodyl (Dulcolax Supp) 10 mg 1X ONCE MT 02/10/20 10:15 02/10/20 10:16 DC 02/10/20 10:33 Justicifation of Admission Dx: Justifications for Admission: Justification of Admission Dx: Yes Respiratory Failure: Severe Resp Distress PONCE LOPEZ MD Feb 10, 2020 13:45
[2020-02-10 15:00] VITALS: BP 120/58
[2020-02-10] MEDS: ANTI-COAG MONITOR BY PHARMACY. MC PRN (15:26)
[2020-02-10] MEDS: IV DEXTROSE 5 %-0.45 % NACL 1,000 ML IV SCH (16:59)
--- NOTE | 2020-02-10 17:33 | NUR ---
SW following. Reviewed chart and spoke with RN. PT recommendation for acute rehab. Pt is self-pay. LVM for HCFS to see if pt qualifies for Medicaid. Pt COVID positive. SW to continue following.
[2020-02-10 19:00] VITALS: BP 115/69
[2020-02-10] MEDS: ENOXAPARIN 40 MG/0.4 ML SYRINGE. SQ SCH (20:37)
[2020-02-10 23:00] VITALS: BP 107/60
[2020-02-11] MEDS: IV DEXTROSE 5 %-0.45 % NACL 1,000 ML IV SCH ×2 (02:47→17:25)
[2020-02-11 03:00] VITALS: BP 115/67
[2020-02-11 07:00] VITALS: BP 111/58
[2020-02-11 08:45] LABS: BASO # 0.1 x10^3/uL (0.0-0.2); BASO % 1 % (0-3); EOS # 0.5 x10^3/uL (0.0-0.7); EOS % 4 % (0-3); HEMATOCRIT 34.7 % (36.0-47.0); HEMOGLOBIN 11.5 g/dL (12.0-15.5); LYMPH # 1.8 x10^3/uL (1.0-4.8); LYMPH % 16 % (24-48); MEAN CORPUSCULAR HEMOGLOBIN 29 pg (25-35); MEAN CORPUSCULAR HGB CONC 33 g/dL (31-37); MEAN CORPUSCULAR VOLUME 87 fL (79-100); MONO # 0.8 x10^3/uL (0.0-1.1); MONO % 7 % (0-9); NEUT # 8.3 x10^3/uL (1.8-7.7); NEUT % 73 % (31-73); PLATELET COUNT 215 x10^3/uL (140-400); RED BLOOD COUNT 3.98 x10^6/uL (3.50-5.40); RED CELL DISTRIBUTION WIDTH 18.1 % (11.5-14.5); WHITE BLOOD COUNT 11.5 x10^3/uL (4.0-11.0)
[2020-02-11] MEDS: NYSTATIN 100,000 UNITS/ML 5 ML ORAL.SUSP. SWSW SCH ×2 (09:00→22:00)
[2020-02-11] MEDS: SENNOSIDES/DOCUSATE 8.6/50MG TABLET. PO SCH ×2 (09:00→21:00)
[2020-02-11] MEDS: FAMOTIDINE 20 MG/2 ML VIAL IVP SCH ×2 (09:05→22:00)
[2020-02-11] MEDS: methylPREDNISolone SOD SUCC PF 40 MG/ML VIAL. IV SCH (09:05)
[2020-02-11] MEDS: ENOXAPARIN 40 MG/0.4 ML SYRINGE. SQ SCH ×2 (09:06→22:01)
[2020-02-11 09:10] LABS: CALCIUM 8.9 mg/dL (8.5-10.1); CREATININE 0.5 mg/dL (0.6-1.0); MAGNESIUM 2.2 mg/dL (1.8-2.4); PHOSPHORUS 4.1 mg/dL (2.6-4.7); POTASSIUM 3.5 mmol/L (3.5-5.1)
--- NOTE | 2020-02-11 09:17 | PDOC ---
PULMONARY PROGRESS NOTES Subjective Spoke with nurse, physical therapy. Vitals Vital Signs Date Time Temp Pulse Resp B/P (MAP) Pulse Ox O2 Delivery O2 Flow Rate FiO2 02/11/20 07:00 97.9 48 20 111/58 (75) 99 Nasal Cannula 7.0 97.9 Comments Visual exam no respiratory distress no paroxysmal breathing pattern some mild edema, patient seen doing the pandemic Labs Laboratory Tests Test 02/10/20 05:35 02/11/20 05:45 Heparin Anti-Xa Act, Unfractionated 0.65 IU/mL (0.30-0.70) White Blood Count 11.5 x10^3/uL (4.0-11.0) Red Blood Count 3.98 x10^6/uL (3.50-5.40) Hemoglobin 11.5 g/dL (12.0-15.5) Hematocrit 34.7 % (36.0-47.0) Mean Corpuscular Volume 87 fL (79-100) Mean Corpuscular Hemoglobin 29 pg (25-35) Mean Corpuscular Hemoglobin Concent 33 g/dL (31-37) Red Cell Distribution Width 18.1 % (11.5-14.5) Platelet Count 215 x10^3/uL (140-400) Neutrophils (%) (Auto) 73 % (31-73) Lymphocytes (%) (Auto) 16 % (24-48) Monocytes (%) (Auto) 7 % (0-9) Eosinophils (%) (Auto) 4 % (0-3) Basophils (%) (Auto) 1 % (0-3) Neutrophils # (Auto) 8.3 x10^3/uL (1.8-7.7) Lymphocytes # (Auto) 1.8 x10^3/uL (1.0-4.8) Monocytes # (Auto) 0.8 x10^3/uL (0.0-1.1) Eosinophils # (Auto) 0.5 x10^3/uL (0.0-0.7) Basophils # (Auto) 0.1 x10^3/uL (0.0-0.2) D-Dimer (Shirley) 1.82 ug/mlFEU (0.00-0.50) Sodium Level 140 mmol/L (136-145) Potassium Level 3.5 mmol/L (3.5-5.1) Chloride Level 102 mmol/L (98-107) Carbon Dioxide Level 27 mmol/L (21-32) Anion Gap 11 (6-14) Blood Urea Nitrogen 20 mg/dL (7-20) Creatinine 0.5 mg/dL (0.6-1.0) Estimated GFR (Cockcroft-Gault) 134.0 Glucose Level 69 mg/dL (70-99) Calcium Level 8.9 mg/dL (8.5-10.1) Phosphorus Level 4.1 mg/dL (2.6-4.7) Magnesium Level 2.2 mg/dL (1.8-2.4) Laboratory Tests Test 02/11/20 05:45 White Blood Count 11.5 x10^3/uL (4.0-11.0) Red Blood Count 3.98 x10^6/uL (3.50-5.40) Hemoglobin 11.5 g/dL (12.0-15.5) Hematocrit 34.7 % (36.0-47.0) Mean Corpuscular Volume 87 fL (79-100) Mean Corpuscular Hemoglobin 29 pg (25-35) Mean Corpuscular Hemoglobin Concent 33 g/dL (31-37) Red Cell Distribution Width 18.1 % (11.5-14.5) Platelet Count 215 x10^3/uL (140-400) Neutrophils (%) (Auto) 73 % (31-73) Lymphocytes (%) (Auto) 16 % (24-48) Monocytes (%) (Auto) 7 % (0-9) Eosinophils (%) (Auto) 4 % (0-3) Basophils (%) (Auto) 1 % (0-3) Neutrophils # (Auto) 8.3 x10^3/uL (1.8-7.7) Lymphocytes # (Auto) 1.8 x10^3/uL (1.0-4.8) Monocytes # (Auto) 0.8 x10^3/uL (0.0-1.1) Eosinophils # (Auto) 0.5 x10^3/uL (0.0-0.7) Basophils # (Auto) 0.1 x10^3/uL (0.0-0.2) D-Dimer (Shirley) 1.82 ug/mlFEU (0.00-0.50) Sodium Level 140 mmol/L (136-145) Potassium Level 3.5 mmol/L (3.5-5.1) Chloride Level 102 mmol/L (98-107) Carbon Dioxide Level 27 mmol/L (21-32) Anion Gap 11 (6-14) Blood Urea Nitrogen 20 mg/dL (7-20) Creatinine 0.5 mg/dL (0.6-1.0) Estimated GFR (Cockcroft-Gault) 134.0 Glucose Level 69 mg/dL (70-99) Calcium Level 8.9 mg/dL (8.5-10.1) Phosphorus Level 4.1 mg/dL (2.6-4.7) Magnesium Level 2.2 mg/dL (1.8-2.4) Medications Active Scripts Medications Dose Route/Sig Max Daily Dose Days Date Category Keflex (Cephalexin) 500 Mg Capsule 500 Mg PO QID 10 06/20/18 Rx [place] 5-325 Tablet (Acetaminophen/Hydrocodone Bitart) 1 Each Tablet 1 Tab PO PRN Q6HRS PRN 06/20/18 Rx Comments CXR IMPRESSION: 1. Widespread airspace disease, not significantly changed. 2. Stable position of tubes and lines. Impression . IMPRESSION: 1. Acute hypoxic respiratory failure secondary to COVID-19 pneumonia and sepsis. intubated 01/24/20, ext on 02/05 2. Abnormal chest x-ray with bilateral patchy infiltrates compatible with COVID-19 pneumonia. COVID-19 + 3. Underlying obesity. ? ernesto 4. Hypertension 5. Hypotension- resolved 6, COVID-19 sepsis--improved Status post convalescent serum 01/22 7. Presumptive thromboembolic disease related to COVID-19 8. Critical care myopathy 9. Delirium, much improved Plan . I spoke with nurse, patient improving. Spoke with physical therapy. Extubated 02/05 See orders, switch to Lovenox discontinue full dose heparin Discontinue all sedating medication Solu-Medrol once daily Up to chair, speech eval. LEIF COBB MD Feb 11, 2020 09:17
--- NOTE | 2020-02-11 10:13 | PDOC ---
Infectious Disease Note Subjective Subjective Sedated Remains orally intubated, FiO2 down to 70% PEEP 12 No fevers last 72 hrs Tube feedings 50 ml/hr Vital Sign Vital Signs Vital Signs Date Time Temp Pulse Resp B/P (MAP) Pulse Ox O2 Delivery O2 Flow Rate FiO2 02/11/20 07:00 97.9 48 20 111/58 (75) 99 Nasal Cannula 7.0 97.9 Physical Exam PHYSICAL EXAM GENERAL: NAD HEENT: Pupils equal, disconjucated gaze, No conjunctival lesion, ETT, OGT NECK: Supple LUNGS: Diminished aeration bases HEART: S1, S2 regular, will 50s ABDOMEN: Obese, soft, + BS, no guarding : Vasquez EXTREMITIES: Generalized edema. SCDs, bilaterally SKIN: warm to touch. No signs of infection NEUROLOGIC: Unresponsive/sedated Right-sided CVC without signs of infection Labs Lab Laboratory Tests Test 02/11/20 05:45 White Blood Count 11.5 x10^3/uL (4.0-11.0) Red Blood Count 3.98 x10^6/uL (3.50-5.40) Hemoglobin 11.5 g/dL (12.0-15.5) Hematocrit 34.7 % (36.0-47.0) Mean Corpuscular Volume 87 fL (79-100) Mean Corpuscular Hemoglobin 29 pg (25-35) Mean Corpuscular Hemoglobin Concent 33 g/dL (31-37) Red Cell Distribution Width 18.1 % (11.5-14.5) Platelet Count 215 x10^3/uL (140-400) Neutrophils (%) (Auto) 73 % (31-73) Lymphocytes (%) (Auto) 16 % (24-48) Monocytes (%) (Auto) 7 % (0-9) Eosinophils (%) (Auto) 4 % (0-3) Basophils (%) (Auto) 1 % (0-3) Neutrophils # (Auto) 8.3 x10^3/uL (1.8-7.7) Lymphocytes # (Auto) 1.8 x10^3/uL (1.0-4.8) Monocytes # (Auto) 0.8 x10^3/uL (0.0-1.1) Eosinophils # (Auto) 0.5 x10^3/uL (0.0-0.7) Basophils # (Auto) 0.1 x10^3/uL (0.0-0.2) D-Dimer (Shirley) 1.82 ug/mlFEU (0.00-0.50) Sodium Level 140 mmol/L (136-145) Potassium Level 3.5 mmol/L (3.5-5.1) Chloride Level 102 mmol/L (98-107) Carbon Dioxide Level 27 mmol/L (21-32) Anion Gap 11 (6-14) Blood Urea Nitrogen 20 mg/dL (7-20) Creatinine 0.5 mg/dL (0.6-1.0) Estimated GFR (Cockcroft-Gault) 134.0 Glucose Level 69 mg/dL (70-99) Calcium Level 8.9 mg/dL (8.5-10.1) Phosphorus Level 4.1 mg/dL (2.6-4.7) Magnesium Level 2.2 mg/dL (1.8-2.4) Objective Assessment IMPRESSION: 1. Positive pneumonia from COVID-19. 2. Fever. 3. Hypoxemia. 4. Obesity. 5. Hypertension. Plan Plan of Care Completed Plasma and Remsidivir, azithromycin and Rocephin Maintain aspiration precautions D/w nursing Critically ill ID sign off. Patient discussed with TRIMMING MACHINE SET UP OPERATOR. Chart reviewed in detail. Above plan co-formulated and agreed upon with TRIMMING MACHINE SET UP OPERATOR on 02/01/2020. BEKAH ALVA MD Feb 11, 2020 10:13
--- NOTE | 2020-02-11 10:49 | PDOC ---
Objective: Objective: D/w nurse - c/o shoulder pain. Stooled yesterday. No bleeding. Remains NPO. Vital Signs: Vital Signs Date Time Temp Pulse Resp B/P (MAP) Pulse Ox O2 Delivery O2 Flow Rate FiO2 02/11/20 07:00 97.9 48 20 111/58 (75) 99 Nasal Cannula 7.0 97.9 Labs: Laboratory Tests Test 02/11/20 05:45 White Blood Count 11.5 x10^3/uL Red Blood Count 3.98 x10^6/uL Hemoglobin 11.5 g/dL Hematocrit 34.7 % Mean Corpuscular Volume 87 fL Mean Corpuscular Hemoglobin 29 pg Mean Corpuscular Hemoglobin Concent 33 g/dL Red Cell Distribution Width 18.1 % Platelet Count 215 x10^3/uL Neutrophils (%) (Auto) 73 % Lymphocytes (%) (Auto) 16 % Monocytes (%) (Auto) 7 % Eosinophils (%) (Auto) 4 % Basophils (%) (Auto) 1 % Neutrophils # (Auto) 8.3 x10^3/uL Lymphocytes # (Auto) 1.8 x10^3/uL Monocytes # (Auto) 0.8 x10^3/uL Eosinophils # (Auto) 0.5 x10^3/uL Basophils # (Auto) 0.1 x10^3/uL D-Dimer (Shirley) 1.82 ug/mlFEU Sodium Level 140 mmol/L Potassium Level 3.5 mmol/L Chloride Level 102 mmol/L Carbon Dioxide Level 27 mmol/L Anion Gap 11 Blood Urea Nitrogen 20 mg/dL Creatinine 0.5 mg/dL Estimated GFR (Cockcroft-Gault) 134.0 Glucose Level 69 mg/dL Calcium Level 8.9 mg/dL Phosphorus Level 4.1 mg/dL Magnesium Level 2.2 mg/dL PE: GEN: NAD LUNGS: NC 7L HEART: bradycardic ABD: obese NEURO/PSYCH: awake/alert, Polish-speaking A/P: COVID-19 resp failure, dysphagia post extubation Blood in OGT - no recurrent bleeding, Hgb stable, on IV H2 mabel -- Continue support. Justicifation of Admission Dx: Justifications for Admission: Justification of Admission Dx: Yes Respiratory Failure: Severe Resp Distress FAMILIA LCEMENTS Feb 11, 2020 10:49
[2020-02-11 11:28] VITALS: BP 98/41
--- NOTE | 2020-02-11 14:22 | PDOC ---
[employer] PROGRESS NOTE Chief Complaint Chief Complaint Oropharyngeal Dysphagia pending repeat speech evaluation Acute Hypoxic Respiratory Failure Secondary to COVID-19 and sepsis pneumonia multifocal pulmonary infiltrates.// follow-up to resolution. Morbid Obesity, BMI 44 HTN NORMOCYTIC ANEMIA severe protein-caloric malnutrition Critical care myopathy 35 MIN CC TIME The patient was evaluated during the global COVID-19 pandemic, and that diagno sis was suspected/considered upon their initial presentation. Their evaluation, treatment and testing was consistent with current guidelines for patients who present with complaints or symptoms that may be related to COVID-19. History of Present Illness History of Present Illness 44-year-old female, who had been having fever and shortness of breath for about a week or so. The patient had outpatient COVID-19 done through [facility] on 01/13/2020 and was informed of positive results on 01/14/2020, which was positive and because of more shortness of breath, she decided to come in. The patient is requiring significant oxygen support. The patient denies any nausea, vomiting or diarrhea. Denies any other complaints other than shortness of breath. 02/11/2020 Patient is doing better today. Still needs 6 to 7 L of O2 and saturating 90%. She did have one large bowel movement. Still pending speech evaluation. PT OT is working with the patient now. 01/31: very awake ealier on 10 versed, and IV fent, doing well on vent, discussed with RT, going down no Fi02 to 65% 02/01: weaning PEEP and oxygen a little, doing a little better, cont current 02/02: weaning slowly, no event, improving slowly 7: Still on vent, awake, trying to self extubate. D/w pulm to stay on vent, BiPAP. WBC 16.7 02/05: WBC down to 14.2, afebrile heart rate in 40s comfortable on vent overnight. When sedation was weaned she almost self extubated. ABG 7. 50/39/66 on 50% FiO2 PEEP of 5. COVID-19 CRITERIA: The patient was evaluated during the global COVID-19 pandemic, and that diagnosis was suspected/considered upon their initial presentation. Their evaluation, treatment and testing was consistent with current guidelines for patients who present with complaints or symptoms that may be related to COVID-19. Vitals/I&O Vitals/I&O: Vital Signs Date Time Temp Pulse Resp B/P (MAP) Pulse Ox O2 Delivery O2 Flow Rate FiO2 02/11/20 11:28 98.6 59 18 98/41 (60) 96 Nasal Cannula 7.0 98.6 I & O 02/10/20 02/10/20 02/11/20 15:00 23:00 07:00 Intake Total 1000 ml Output Total 725 ml Balance -725 ml 1000 ml Physical Exam Physical Exam: GENERAL: Patient is alert and awake. NAD HEENT: Moist mucous membranes. No scleral icterus or obvious cervical lymphadenopathy CV: RRR. No murmurs rubs or gallops. Unable to appreciate S3 or S4 PULM: Bilaterally clear to auscultation. Chest expanding equally bilaterally without use of accessory muscles. Patient is able to expel good effort and cough ABD: Soft and nondistended on visualization and palpation. Normoactive bowel sounds heard. EXTREMITIES: No pedal edema seen. No warmth or tenderness upon touch. NEURO: Full ROM in all extremities. Patient has 3 out of 5 strength General: Other Heart: Regular rate Abdomen: Other Extremities: No cyanosis Skin: No breakdown Labs Labs: Laboratory Tests Test 02/11/20 05:45 White Blood Count 11.5 x10^3/uL (4.0-11.0) Red Blood Count 3.98 x10^6/uL (3.50-5.40) Hemoglobin 11.5 g/dL (12.0-15.5) Hematocrit 34.7 % (36.0-47.0) Mean Corpuscular Volume 87 fL (79-100) Mean Corpuscular Hemoglobin 29 pg (25-35) Mean Corpuscular Hemoglobin Concent 33 g/dL (31-37) Red Cell Distribution Width 18.1 % (11.5-14.5) Platelet Count 215 x10^3/uL (140-400) Neutrophils (%) (Auto) 73 % (31-73) Lymphocytes (%) (Auto) 16 % (24-48) Monocytes (%) (Auto) 7 % (0-9) Eosinophils (%) (Auto) 4 % (0-3) Basophils (%) (Auto) 1 % (0-3) Neutrophils # (Auto) 8.3 x10^3/uL (1.8-7.7) Lymphocytes # (Auto) 1.8 x10^3/uL (1.0-4.8) Monocytes # (Auto) 0.8 x10^3/uL (0.0-1.1) Eosinophils # (Auto) 0.5 x10^3/uL (0.0-0.7) Basophils # (Auto) 0.1 x10^3/uL (0.0-0.2) D-Dimer (Shirley) 1.82 ug/mlFEU (0.00-0.50) Sodium Level 140 mmol/L (136-145) Potassium Level 3.5 mmol/L (3.5-5.1) Chloride Level 102 mmol/L (98-107) Carbon Dioxide Level 27 mmol/L (21-32) Anion Gap 11 (6-14) Blood Urea Nitrogen 20 mg/dL (7-20) Creatinine 0.5 mg/dL (0.6-1.0) Estimated GFR (Cockcroft-Gault) 134.0 Glucose Level 69 mg/dL (70-99) Calcium Level 8.9 mg/dL (8.5-10.1) Phosphorus Level 4.1 mg/dL (2.6-4.7) Magnesium Level 2.2 mg/dL (1.8-2.4) Review of Systems Review of Systems: CONSTITUIONAL: Denies weight loss, fever and chills. HEENT: Denies changes in vision and hearing. RESPIRATORY: Denies SOB and cough. CV: Denies palpitations and CP. GI: Denies abdominal pain, nausea, vomiting and diarrhea. : Denies dysuria and urinary frequency. MSK: Denies myalgia and joint pain. SKIN: Denies rash and pruritus. NEUROLOGICAL: Denies headache and syncope. PSYCHIATRIC: Denies recent changes in mood. Denies anxiety and depression. Assessment and Plan Assessmemt and Plan Assessment and plan Oropharyngeal Dysphagia pending repeat speech evaluation Acute Hypoxic Respiratory Failure Secondary to COVID-19 and sepsis pneumonia multifocal pulmonary infiltrates.// follow-up to resolution. Morbid Obesity, BMI 44 HTN NORMOCYTIC ANEMIA severe protein-caloric malnutrition Critical care myopathy Pending speech evaluation and PT OT evaluation for out of bed to chair Switch to Lovenox twice daily Continue Solu-Medrol daily Appreciate pulmonary recs Comment Review of Relevant I have reviewed the following items stephon (where applicable) has been applied. Medications: Current Medications Medications (Trade) Dose Ordered Sig/Wei Route PRN Reason Start Time Stop Time Status Last Admin Dose Admin Methylprednisolone Sodium Succinate (SOLU-Medrol 40MG VIAL) 40 mg DAILY IV 02/11/20 09:00 02/11/20 09:05 Enoxaparin Sodium (Lovenox 40mg Syringe) 40 mg Q12HR SQ 02/10/20 21:00 02/11/20 09:06 Justicifation of Admission Dx: Justifications for Admission: Justification of Admission Dx: Yes Respiratory Failure: Severe Resp Distress PONCE LOPEZ MD Feb 11, 2020 14:22
[2020-02-11 15:23] VITALS: BP 123/36
--- NOTE | 2020-02-11 16:56 | NUR ---
[facility] following. Reviewed chart and spoke with RN and CM. PT/OT evaluation states acute rehab. Pt is self-pay. [facility] faxed referrals to three different acute rehab providers to see if anyone would accept pt self-pay. [facility] faxed referrals to [facility], ; [phone] (fax), [facility], ; [phone] (fax) and [facility], ; [phone] (fax). [facility] to continue following. Addendum: 02/11/20 at 1717 by LORETTA CHAMBERS Patient Choice of vendor form completed.
[2020-02-11 19:00] VITALS: BP_SYST 100; BP_SYST 103; BP_DIAS 65; BP_DIAS 67
[2020-02-11 23:00] VITALS: BP 100/65
[2020-02-12 03:00] VITALS: BP 108/63
[2020-02-12] MEDS: IV DEXTROSE 5 %-0.45 % NACL 1,000 ML IV SCH ×2 (06:36→19:55)
[2020-02-12 07:15] VITALS: BP 98/53
[2020-02-12] MEDS: SENNOSIDES/DOCUSATE 8.6/50MG TABLET. PO SCH ×2 (08:17→19:54)
--- NOTE | 2020-02-12 08:48 | PDOC ---
Objective: Objective: D/w nurse - no GI concerns. Tolerating dysphagia diet, stooling, no bleeding. Vital Signs: Vital Signs Date Time Temp Pulse Resp B/P (MAP) Pulse Ox O2 Delivery O2 Flow Rate FiO2 02/12/20 03:00 98.9 90 27 108/63 (78) 95 98.9 02/11/20 20:00 Mask 15.0 PE: GEN: in COVID isolation A/P: COVID-19 resp failure -- Improving GI-charlton. Justicifation of Admission Dx: Justifications for Admission: Justification of Admission Dx: Yes Respiratory Failure: Severe Resp Distress FAMILIA CLEMENTS Feb 12, 2020 08:48
[2020-02-12] MEDS: NYSTATIN 100,000 UNITS/ML 5 ML ORAL.SUSP. SWSW SCH ×2 (09:11→19:54)
[2020-02-12] MEDS: ENOXAPARIN 40 MG/0.4 ML SYRINGE. SQ SCH ×2 (09:12→19:55)
[2020-02-12] MEDS: methylPREDNISolone SOD SUCC PF 40 MG/ML VIAL. IV SCH (09:12)
[2020-02-12] MEDS: FAMOTIDINE 20 MG/2 ML VIAL IVP SCH ×2 (09:13→19:54)
--- NOTE | 2020-02-12 09:31 | PDOC ---
PULMONARY PROGRESS NOTES Subjective Spoke with nurse, physical therapy. Less short of air. Vitals Vital Signs Date Time Temp Pulse Resp B/P (MAP) Pulse Ox O2 Delivery O2 Flow Rate FiO2 02/12/20 07:15 97.5 61 18 98/53 (68) 100 Nasal Cannula 7.0 97.5 Comments Visual exam no respiratory distress no paroxysmal breathing pattern some mild edema, patient seen doing the pandemic Labs Laboratory Tests Test 02/11/20 05:45 White Blood Count 11.5 x10^3/uL (4.0-11.0) Red Blood Count 3.98 x10^6/uL (3.50-5.40) Hemoglobin 11.5 g/dL (12.0-15.5) Hematocrit 34.7 % (36.0-47.0) Mean Corpuscular Volume 87 fL (79-100) Mean Corpuscular Hemoglobin 29 pg (25-35) Mean Corpuscular Hemoglobin Concent 33 g/dL (31-37) Red Cell Distribution Width 18.1 % (11.5-14.5) Platelet Count 215 x10^3/uL (140-400) Neutrophils (%) (Auto) 73 % (31-73) Lymphocytes (%) (Auto) 16 % (24-48) Monocytes (%) (Auto) 7 % (0-9) Eosinophils (%) (Auto) 4 % (0-3) Basophils (%) (Auto) 1 % (0-3) Neutrophils # (Auto) 8.3 x10^3/uL (1.8-7.7) Lymphocytes # (Auto) 1.8 x10^3/uL (1.0-4.8) Monocytes # (Auto) 0.8 x10^3/uL (0.0-1.1) Eosinophils # (Auto) 0.5 x10^3/uL (0.0-0.7) Basophils # (Auto) 0.1 x10^3/uL (0.0-0.2) D-Dimer (Shirley) 1.82 ug/mlFEU (0.00-0.50) Sodium Level 140 mmol/L (136-145) Potassium Level 3.5 mmol/L (3.5-5.1) Chloride Level 102 mmol/L (98-107) Carbon Dioxide Level 27 mmol/L (21-32) Anion Gap 11 (6-14) Blood Urea Nitrogen 20 mg/dL (7-20) Creatinine 0.5 mg/dL (0.6-1.0) Estimated GFR (Cockcroft-Gault) 134.0 Glucose Level 69 mg/dL (70-99) Calcium Level 8.9 mg/dL (8.5-10.1) Phosphorus Level 4.1 mg/dL (2.6-4.7) Magnesium Level 2.2 mg/dL (1.8-2.4) Medications Active Scripts Medications Dose Route/Sig Max Daily Dose Days Date Category Keflex (Cephalexin) 500 Mg Capsule 500 Mg PO QID 10 06/20/18 Rx [place] 5-325 Tablet (Acetaminophen/Hydrocodone Bitart) 1 Each Tablet 1 Tab PO PRN Q6HRS PRN 06/20/18 Rx Comments CXR IMPRESSION: 1. Widespread airspace disease, not significantly changed. 2. Stable position of tubes and lines. Impression . IMPRESSION: 1. Acute hypoxic respiratory failure secondary to COVID-19 pneumonia and sepsis. intubated 01/24/20, ext on 02/05 2. Abnormal chest x-ray with bilateral patchy infiltrates compatible with COVID-19 pneumonia. COVID-19 + 3. Underlying obesity. ? ernesto 4. Hypertension 5. Hypotension- resolved 6, COVID-19 sepsis--improved Status post convalescent serum 01/22 7. Presumptive thromboembolic disease related to COVID-19 8. Critical care myopathy 9. Delirium, much improved Plan . I spoke with nurse, patient improving. Spoke with physical therapy. Extubated 02/05 See orders, switch to Lovenox discontinue full dose heparin Discontinue all sedating medication Solu-Medrol once daily Up to chair, speech eval. LEIF COBB MD Feb 12, 2020 09:31
--- NOTE | 2020-02-12 10:43 | NUR ---
[facility] following. Spoke with RN and CM. Coordinated care with Dr. Hall. Spoke with [facility] and [facility] and neither can accept pt self-pay. Spoke with Darlene from [facility], and they will consider pt for acute rehab as a self-pay if pt has 2 negative COVID tests. Spoke with Dr. Hall about possibly ordering another COVID test. Pt remains on 7l 02 and IV Solu-Medrol. Pt tolerating dysphagia diet. [facility] to continue following. Addendum: 02/13/20 at 1014 by LORETTA CHAMBERS Correction- [facility] spoke with Darlene from [place] (not [facility]
[2020-02-12 11:15] VITALS: BP 104/56
--- NOTE | 2020-02-12 13:15 | PDOC ---
[employer] PROGRESS NOTE Chief Complaint Chief Complaint Oropharyngeal Dysphagia Critical care myopathy Acute Hypoxic Respiratory Failure Secondary to COVID-19 and sepsis pneumonia multifocal pulmonary infiltrates.// follow-up to resolution. Morbid Obesity, BMI 44 HTN NORMOCYTIC ANEMIA severe protein-caloric malnutrition Critical care myopathy 35 MIN CC TIME The patient was evaluated during the global COVID-19 pandemic, and that diagnosis was suspected/considered upon their initial presentation. Their evaluation, treatment and testing was consistent with current guidelines for patients who present with complaints or symptoms that may be related to COVID- 19. History of Present Illness History of Present Illness 44-year-old female, who had been having fever and shortness of breath for about a week or so. The patient had outpatient COVID-19 done through [facility] on 01/13/2020 and was informed of positive results on 01/14/2020, which was positive and because of more shortness of breath, she decided to come in. The patient is requiring significant oxygen support. The patient denies any nausea, vomiting or diarrhea. Denies any other complaints other than shortness of breath. 02/12/2020 Patient seen and examined bedside. Patient still requiring 7 L nasal cannula O2. She is saturating 100%. Discussed with RN to titrate down on O2. Speech evaluated and patient is able to tolerate regular diet with thickened liquids. Patient is working well with PT OT. Tolerating diet and ambulating with assistance. 02/11/2020 Patient is doing better today. Still needs 6 to 7 L of O2 and saturating 90%. She did have one large bowel movement. Still pending speech evaluation. PT OT is working with the patient now. 01/31: very awake ealier on 10 versed, and IV fent, doing well on vent, discussed with RT, going down no Fi02 to 65% 02/01: weaning PEEP and oxygen a little, doing a little better, cont current 02/02: weaning slowly, no event, improving slowly 02/04: Still on vent, awake, trying to self extubate. D/w pulm to stay on vent, BiPAP. WBC 16.7 02/05: WBC down to 14.2, afebrile heart rate in 40s comfortable on vent overnight. When sedation was weaned she almost self extubated. ABG 7. 50/39/66 on 50% FiO2 PEEP of 5. COVID-19 CRITERIA: The patient was evaluated during the global COVID-19 pandemic, and that diagnosis was suspected/considered upon their initial presentation. Their evaluation, treatment and testing was consistent with current guidelines for patients who present with complaints or symptoms that may be related to COVID-19. Vitals/I&O Vitals/I&O: Vital Signs Date Time Temp Pulse Resp B/P (MAP) Pulse Ox O2 Delivery O2 Flow Rate FiO2 02/12/20 11:15 96.5 84 18 104/56 (72) 90 Nasal Cannula 7.0 96.5 I & O 02/11/20 02/11/20 02/12/20 15:00 23:00 07:00 Output Total 851 ml Balance -851 ml Physical Exam Physical Exam: GENERAL: Patient is alert and awake. NAD HEENT: Moist mucous membranes. No scleral icterus or obvious cervical lymphadenopathy CV: RRR. No murmurs rubs or gallops. Unable to appreciate S3 or S4 PULM: Bilaterally clear to auscultation. Chest expanding equally bilaterally without use of accessory muscles. Patient is able to expel good effort and cough ABD: Soft and nondistended on visualization and palpation. Normoactive bowel sounds heard. EXTREMITIES: No pedal edema seen. No warmth or tenderness upon touch. NEURO: Full ROM in all extremities. Patient has 3 out of 5 strength General: Other Heart: Regular rate Abdomen: Other Extremities: No cyanosis Skin: No breakdown Review of Systems Review of Systems: CONSTITUIONAL: Denies weight loss, fever and chills. HEENT: Denies changes in vision and hearing. RESPIRATORY: Complains of some cough and shortness of breath CV: Denies palpitations and CP. GI: Denies abdominal pain, nausea, vomiting and diarrhea. : Denies dysuria and urinary frequency. MSK: Minimal weakness. SKIN: Denies rash and pruritus. NEUROLOGICAL: Denies headache and syncope. PSYCHIATRIC: Denies recent changes in mood. Denies anxiety and depression. Assessment and Plan Assessmemt and Plan Oropharyngeal Dysphagia Critical care myopathy Acute Hypoxic Respiratory Failure Secondary to COVID-19 and sepsis pneumonia multifocal pulmonary infiltrates.// follow-up to resolution. Morbid Obesity, BMI 44 HTN NORMOCYTIC ANEMIA severe protein-caloric malnutrition Critical care myopathy Continue with speech recommendations for regular diet and thickened liquids Continue PT OT who recommends acute rehab We will repeat COVID testing to qualify for rehab placement Appreciate pulmonary recommendations Continue with daily Solu-Medrol Continue with full dose Lovenox Titrate O2 therapy with goal of 88-92% Comment Review of Relevant I have reviewed the following items stephon (where applicable) has been applied. Justicifation of Admission Dx: Justifications for Admission: Justification of Admission Dx: Yes Respiratory Failure: Severe Resp Distress PONCE LOPEZ MD Feb 12, 2020 13:15
[2020-02-12 15:00] VITALS: BP 100/59
[2020-02-12 19:00] VITALS: BP 126/65
[2020-02-12 23:00] VITALS: BP 125/62
[2020-02-13 03:00] VITALS: BP 100/57
[2020-02-13 07:15] VITALS: BP 96/54
[2020-02-13] MEDS: methylPREDNISolone SOD SUCC PF 40 MG/ML VIAL. IV SCH (08:21)
[2020-02-13] MEDS: IV DEXTROSE 5 %-0.45 % NACL 1,000 ML IV SCH ×2 (08:21→20:10)
[2020-02-13] MEDS: FAMOTIDINE 20 MG/2 ML VIAL IVP SCH (08:22)
[2020-02-13] MEDS: SENNOSIDES/DOCUSATE 8.6/50MG TABLET. PO SCH ×2 (08:22→20:09)
[2020-02-13] MEDS: NYSTATIN 100,000 UNITS/ML 5 ML ORAL.SUSP. SWSW SCH ×2 (08:22→20:09)
[2020-02-13] MEDS: ENOXAPARIN 40 MG/0.4 ML SYRINGE. SQ SCH ×2 (08:23→20:09)
--- NOTE | 2020-02-13 10:04 | PDOC ---
Objective: Objective: Stools charted, tolerating diet. Vital Signs: Vital Signs Date Time Temp Pulse Resp B/P (MAP) Pulse Ox O2 Delivery O2 Flow Rate FiO2 02/13/20 07:15 97.7 60 20 96/54 (68) 95 Nasal Cannula 7.0 97.7 PE: GEN: in COVID isolation LUNGS: 7L NC HEART: RR A/P: COVID-19 resp failure -- Stable GI-charlton. 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 Justicifation of Admission Dx: Justifications for Admission: Justification of Admission Dx: Yes Respiratory Failure: Severe Resp Distress FAMILIA CLEMENTS Feb 13, 2020 10:04
--- NOTE | 2020-02-13 10:32 | PDOC ---
PULMONARY PROGRESS NOTES Subjective Patient weak not more short of air Vitals Vital Signs Date Time Temp Pulse Resp B/P (MAP) Pulse Ox O2 Delivery O2 Flow Rate FiO2 02/13/20 07:15 97.7 60 20 96/54 (68) 95 Nasal Cannula 7.0 97.7 Comments Visual exam no respiratory distress no paroxysmal breathing pattern some mild edema, patient seen doing the pandemic Medications Active Scripts Medications Dose Route/Sig Max Daily Dose Days Date Category Keflex (Cephalexin) 500 Mg Capsule 500 Mg PO QID 10 06/20/18 Rx [place] 5-325 Tablet (Acetaminophen/Hydrocodone Bitart) 1 Each Tablet 1 Tab PO PRN Q6HRS PRN 06/20/18 Rx Comments CXR IMPRESSION: 1. Widespread airspace disease, not significantly changed. 2. Stable position of tubes and lines. Impression . IMPRESSION: 1. Acute hypoxic respiratory failure secondary to COVID-19 pneumonia and sepsis. intubated 01/24/20, ext on 02/05 2. Abnormal chest x-ray with bilateral patchy infiltrates compatible with COVID-19 pneumonia. COVID-19 + 3. Underlying obesity. ? ern[place] 4. Hypertension 5. Hypotension- resolved 6, COVID-19 sepsis--improved Status post convalescent serum 01/22 7. Presumptive thromboembolic disease related to COVID-19 8. Critical care myopathy 9. Delirium, much improved Plan . Continue physical therapy respiratory status compensated will see PRN Extubated 02/05 See orders, switch to Lovenox discontinue full dose heparin Discontinue all sedating medication Solu-Medrol once daily Up to chair, speech eval. LEIF COBB MD Feb 13, 2020 10:32
[2020-02-13 11:05] VITALS: BP 113/63
[2020-02-13 15:00] VITALS: BP 114/56
--- NOTE | 2020-02-13 16:57 | PDOC ---
[employer] [facility] PROGRESS NOTE Chief Complaint Chief Complaint Oropharyngeal Dysphagiaimproved Critical care myopathyimproved Acute Hypoxic Respiratory Failure Secondary to COVID-19 and sepsis pneumonia multifocal pulmonary infiltrates.// follow-up to resolution. Morbid Obesity, BMI 44 HTN NORMOCYTIC ANEMIA severe protein-caloric malnutrition Critical care myopathy Continue with speech recommendations for regular diet and thickened liquids Continue PT OT who recommends acute rehab Pending COVID testing to qualify for rehab placement Appreciate pulmonary recommendations Continue with daily Solu-Medrol Continue with full dose Lovenox Titrate O2 therapy with goal of 88-92% Lovenox for DVT prophylaxis Regular diet Full code Discussed with RN and SW Dispo pending rehab placement after repeat COVID test 35 MIN CC TIME The patient was evaluated during the global COVID-19 pandemic, and that diagnosis was suspected/considered upon their initial presentation. Their evaluation, treatment and testing was consistent with current guidelines for patients who present with complaints or symptoms that may be related to COVID- 19. History of Present Illness History of Present Illness 44-year-old female, who had been having fever and shortness of breath for about a week or so. The patient had outpatient COVID-19 done through [facility] on 01/13/2020 and was informed of positive results on 01/14/2020, which was positive and because of more shortness of breath, she decided to come in. The patient is requiring significant oxygen support. The patient denies any nausea, vomiting or diarrhea. Denies any other complaints other than shortness of breath. 02/12/2020 Patient seen and examined bedside. Patient still requiring 7 L nasal cannula O2. She is saturating 100%. Discussed with RN to titrate down on O2. Speech evaluated and patient is able to tolerate regular diet with thickened liquids. Patient is working well with PT OT. Tolerating diet and ambulating with assistance. 02/11/2020 Patient is doing better today. Still needs 6 to 7 L of O2 and saturating 90%. She did have one large bowel movement. Still pending speech evaluation. PT OT is working with the patient now. 01/31: very awake ealier on 10 versed, and IV fent, doing well on vent, discussed with RT, going down no Fi02 to 65% 02/01: weaning PEEP and oxygen a little, doing a little better, cont current 02/02: weaning slowly, no event, improving slowly 02/04: Still on vent, awake, trying to self extubate. D/w pulm to stay on vent, BiPAP. WBC 16.7 02/05: WBC down to 14.2, afebrile heart rate in 40s comfortable on vent overnight. When sedation was weaned she almost self extubated. ABG 7. 50/39/66 on 50% FiO2 PEEP of 5. COVID-19 CRITERIA: The patient was evaluated during the global COVID-19 pandemic, and that diagnosis was suspected/considered upon their initial presentation. Their evaluation, treatment and testing was consistent with current guidelines for patients who present with complaints or symptoms that may be related to COVID-19. Vitals/I&O Vitals/I&O: Vital Signs Date Time Temp Pulse Resp B/P (MAP) Pulse Ox O2 Delivery O2 Flow Rate FiO2 02/13/20 11:05 98.1 83 113/63 (80) 98 Nasal Cannula 5.0 98.1 02/13/20 07:15 20 I & O 02/12/20 02/12/20 02/13/20 15:00 23:00 07:00 Intake Total 0 ml 0 ml Output Total 400 ml Balance -400 ml 0 ml 0 ml Physical Exam Physical Exam: GENERAL: Patient is alert and awake. NAD HEENT: Moist mucous membranes. No scleral icterus or obvious cervical lymphadenopathy CV: RRR. No murmurs rubs or gallops. Unable to appreciate S3 or S4 PULM: Bilaterally clear to auscultation. Chest expanding equally bilaterally without use of accessory muscles. Patient is able to expel good effort and cough ABD: Soft and nondistended on visualization and palpation. Normoactive bowel sounds heard. EXTREMITIES: No pedal edema seen. No warmth or tenderness upon touch. NEURO: Full ROM in all extremities. Patient has 3 out of 5 strength General: Other Heart: Regular rate Abdomen: Other Extremities: No cyanosis Skin: No breakdown Assessment and Plan Assessmemt and Plan Problems Medical Problems: (1) Pneumonia due to COVID-19 virus Status: Acute Comment Review of Relevant I have reviewed the following items stephon (where applicable) has been applied. Justicifation of Admission Dx: Justifications for Admission: Justification of Admission Dx: Yes Respiratory Failure: Severe Resp Distress PONCE LOPEZ MD Feb 13, 2020 16:57
[2020-02-13] MEDS: THIAMINE 100 MG TABLET. PO SCH (17:12)
[2020-02-13] MEDS: ASCORBIC ACID 500 MG TABLET PO SCH (17:12)
--- NOTE | 2020-02-13 17:39 | NUR ---
SW following for discharge planning. Reviewed chart and spoke with RN. Pt on 02. Awaiting results of covid testing. SW to continue following.
[2020-02-13 19:25] VITALS: BP 114/60
[2020-02-13] MEDS: FAMOTIDINE 20 MG TABLET. PO SCH (20:09)
[2020-02-13 22:55] VITALS: BP 101/53
[2020-02-14 03:22] VITALS: BP 167/74
[2020-02-14 07:00] VITALS: BP 110/60
[2020-02-14] MEDS: ENOXAPARIN 40 MG/0.4 ML SYRINGE. SQ SCH ×3 (09:00→20:11)
[2020-02-14] MEDS: SENNOSIDES/DOCUSATE 8.6/50MG TABLET. PO SCH ×2 (09:00→20:11)
[2020-02-14] MEDS: NYSTATIN 100,000 UNITS/ML 5 ML ORAL.SUSP. SWSW SCH ×2 (09:34→20:11)
[2020-02-14] MEDS: ASCORBIC ACID 500 MG TABLET PO SCH (09:34)
[2020-02-14] MEDS: THIAMINE 100 MG TABLET. PO SCH (09:35)
[2020-02-14 11:03] VITALS: BP 115/67
[2020-02-14] MEDS: IV DEXTROSE 5 %-0.45 % NACL 1,000 ML IV SCH (12:06)
--- NOTE | 2020-02-14 13:24 | PDOC ---
[employer] [facility] PROGRESS NOTE Chief Complaint Chief Complaint Oropharyngeal Dysphagiaimproved Critical care myopathyimproved Acute Hypoxic Respiratory Failure Secondary to COVID-19 and sepsis pneumonia multifocal pulmonary infiltrates.// follow-up to resolution. Morbid Obesity, BMI 44 HTN NORMOCYTIC ANEMIA severe protein-caloric malnutrition Critical care myopathy Continue with speech recommendations for regular diet and thickened liquids Continue PT OT who recommends acute rehab Appreciate pulmonary recommendations Continue with daily Solu-Medrol Continue with full dose Lovenox Titrate O2 therapy with goal of 88-92% Lovenox for DVT prophylaxis Regular diet Full code Discussed with RN and SW Dispo pending rehab placement 35 MIN CC TIME The patient was evaluated during the global COVID-19 pandemic, and that diagnosis was suspected/considered upon their initial presentation. Their evaluation, treatment and testing was consistent with current guidelines for patients who present with complaints or symptoms that may be related to COVID- 19. History of Present Illness History of Present Illness 44-year-old female, who had been having fever and shortness of breath for about a week or so. The patient had outpatient COVID-19 done through [facility] on 01/13/2020 and was informed of positive results on 01/14/2020, which was positive and because of more shortness of breath, she decided to come in. The patient is requiring significant oxygen support. The patient denies any nausea, vomiting or diarrhea. Denies any other complaints other than shortness of breath. 02/14/2020 Patient seen and examined bedside. Patient is still saturating 91% on 5 L nasal cannula. She is sitting up in bed and appears to have more energy compared to yesterday. She has been working with physical therapy 02/12/2020 Patient seen and examined bedside. Patient still requiring 7 L nasal cannula O2. She is saturating 100%. Discussed with RN to titrate down on O2. Speech evaluated and patient is able to tolerate regular diet with thickened liquids. Patient is working well with PT OT. Tolerating diet and ambulating with assistance. 02/11/2020 Patient is doing better today. Still needs 6 to 7 L of O2 and saturating 90%. She did have one large bowel movement. Still pending speech evaluation. PT OT is working with the patient now. 01/31: very awake ealier on 10 versed, and IV fent, doing well on vent, discussed with RT, going down no Fi02 to 65% 02/01: weaning PEEP and oxygen a little, doing a little better, cont current 02/02: weaning slowly, no event, improving slowly 02/04: Still on vent, awake, trying to self extubate. D/w pulm to stay on vent, BiPAP. WBC 16.7 02/05: WBC down to 14.2, afebrile heart rate in 40s comfortable on vent overnight. When sedation was weaned she almost self extubated. ABG 7. 50/39/66 on 50% FiO2 PEEP of 5. COVID-19 CRITERIA: The patient was evaluated during the global COVID-19 pandemic, and that diagnosis was suspected/considered upon their initial presentation. Their evaluation, treatment and testing was consistent with current guidelines for patients who present with complaints or symptoms that may be related to COVID-19. Vitals/I&O Vitals/I&O: Vital Signs Date Time Temp Pulse Resp B/P (MAP) Pulse Ox O2 Delivery O2 Flow Rate FiO2 02/14/20 11:03 96.7 105 16 115/67 (83) 92 Nasal Cannula 5.0 96.7 l I & O 02/13/20 02/13/20 02/14/20 15:00 23:00 07:00 Intake Total 240 ml 100 ml Balance 240 ml 100 ml Physical Exam Physical Exam: GENERAL: Patient is alert and awake. NAD HEENT: Moist mucous membranes. No scleral icterus or obvious cervical lymphadenopathy CV: RRR. No murmurs rubs or gallops. Unable to appreciate S3 or S4 PULM: Bilaterally clear to auscultation. Chest expanding equally bilaterally without use of accessory muscles. Patient is able to expel good effort and cough ABD: Soft and nondistended on visualization and palpation. Normoactive bowel sounds heard. EXTREMITIES: No pedal edema seen. No warmth or tenderness upon touch. NEURO: Full ROM in all extremities. Patient has 3 out of 5 strength General: Other Heart: Regular rate Abdomen: Other Extremities: No cyanosis Skin: No breakdown Review of Systems Review of Systems: CONSTITUIONAL: Denies weight loss, fever and chills. HEENT: Denies changes in vision and hearing. RESPIRATORY: Denies SOB and cough. CV: Denies palpitations and CP. GI: Denies abdominal pain, nausea, vomiting and diarrhea. : Denies dysuria and urinary frequency. MSK: Denies myalgia and joint pain. SKIN: Denies rash and pruritus. NEUROLOGICAL: Denies headache and syncope. PSYCHIATRIC: Denies recent changes in mood. Denies anxiety and depression. Assessment and Plan Assessmemt and Plan Problems Medical Problems: (1) Pneumonia due to COVID-19 virus Status: Acute Comment Review of Relevant I have reviewed the following items stephon (where applicable) has been applied. Medications: Current Medications Medications (Trade) Dose Ordered Sig/Wei Route PRN Reason Start Time Stop Time Status Last Admin Dose Admin Famotidine (Pepcid) 20 mg QHS PO 02/13/20 21:00 02/13/20 20:09 Ascorbic Acid (Vitamin C) 500 mg DAILY PO 02/13/20 17:00 02/14/20 09:34 Thiamine Mononitrate (Vitamin B-1) 100 mg DAILY PO 02/13/20 17:00 02/14/20 09:35 Justicifation of Admission Dx: Justifications for Admission: Justification of Admission Dx: Yes Respiratory Failure: Severe Resp Distress PONCE LOPEZ MD Feb 14, 2020 13:24
[2020-02-14 15:00] VITALS: BP 118/54
--- NOTE | 2020-02-14 17:25 | NUR ---
[facility] following for discharge planning. Reviewed chart and spoke with RN. Pt on . Pt COVID positive. Pt self-pay. Therapy recommending acute rehab but pt must have two negative COVID tests before [facility] will consider acute rehab for self-pay. [facility] to continue following. Addendum: 02/14/20 at 1727 by [facility] for [facility]
--- NOTE | 2020-02-14 17:34 | NUR ---
Wound Care Pt has COVID 19 so photo assessment done by WC team. Pt has resolving skin tears to bilateral upper buttocks. Recommend to continue applying calazime cream BID and PRN. Discussed POC with Camila BEAL. WC will continue to follow for possible changes.
[2020-02-14 19:00] VITALS: BP 155/75
[2020-02-14] MEDS: FAMOTIDINE 20 MG TABLET. PO SCH (20:11)
[2020-02-14 23:00] VITALS: BP 102/51
[2020-02-15] MEDS: IV DEXTROSE 5 %-0.45 % NACL 1,000 ML IV SCH ×2 (02:59→15:39)
[2020-02-15 03:00] VITALS: BP 129/75
[2020-02-15 07:00] VITALS: BP 116/59
--- NOTE | 2020-02-15 08:57 | PDOC ---
PULMONARY PROGRESS NOTES Subjective Patient weak not more short of air, has nasal congestion Vitals Vital Signs Date Time Temp Pulse Resp B/P (MAP) Pulse Ox O2 Delivery O2 Flow Rate FiO2 02/15/20 07:00 96.5 65 18 116/59 (78) 95 Nasal Cannula 5.0 96.5 Comments alert on no paradoxical abd motion no respiratory distress mild edema, nsr nc at patient seen doing the pandemic Medications Active Scripts Medications Dose Route/Sig Max Daily Dose Days Date Category Keflex (Cephalexin) 500 Mg Capsule 500 Mg PO QID 10 06/20/18 Rx [place] 5-325 Tablet (Acetaminophen/Hydrocodone Bitart) 1 Each Tablet 1 Tab PO PRN Q6HRS PRN 06/20/18 Rx Comments CXR IMPRESSION: 1. Widespread airspace disease, not significantly changed. 2. Stable position of tubes and lines. Impression . IMPRESSION: 1. Acute hypoxic respiratory failure secondary to COVID-19 pneumonia and sepsis. intubated 01/24/20, ext on 02/05 2. Abnormal chest x-ray with bilateral patchy infiltrates compatible with COVID-19 pneumonia. COVID-19 + 3. Underlying obesity. ? [place] 4. Hypertension 5. Hypotension- resolved 6, COVID-19 sepsis--improved Status post convalescent serum 01/22 7. Presumptive thromboembolic disease related to COVID-19 8. Critical care myopathy 9. Delirium, much improved Plan . Continue physical therapy respiratory status compensated will see PRN Extubated 02/05 See orders, switch to Lovenox discontinue full dose heparin Discontinue all sedating medication Solu-Medrol once daily Up to chair, speech eval. add flonase for nasal congestion discussed w BENNY Osorio MD Feb 15, 2020 08:57
[2020-02-15] MEDS: FLUTICASONE 50MCG/NASAL SPRAY 16GM BOTTLE. NS SCH (09:26)
[2020-02-15] MEDS: THIAMINE 100 MG TABLET. PO SCH (09:27)
[2020-02-15] MEDS: SENNOSIDES/DOCUSATE 8.6/50MG TABLET. PO SCH ×2 (09:27→21:20)
[2020-02-15] MEDS: NYSTATIN 100,000 UNITS/ML 5 ML ORAL.SUSP. SWSW SCH ×2 (09:27→21:20)
[2020-02-15] MEDS: ASCORBIC ACID 500 MG TABLET PO SCH (09:27)
[2020-02-15] MEDS: ENOXAPARIN 40 MG/0.4 ML SYRINGE. SQ SCH ×2 (09:27→21:20)
--- NOTE | 2020-02-15 11:20 | PDOC ---
[facility] PROGRESS NOTE Chief Complaint Chief Complaint Oropharyngeal Dysphagiaimproved Critical care myopathyimproved Acute Hypoxic Respiratory Failure Secondary to COVID-19 and sepsis pneumonia multifocal pulmonary infiltrates.// follow-up to resolution. Morbid Obesity, BMI 44 HTN NORMOCYTIC ANEMIA severe protein-caloric malnutrition Critical care myopathy Continue with speech recommendations for regular diet and thickened liquids Continue PT OT who recommends acute rehab Appreciate pulmonary recommendations Continue with daily Solu-Medrol Continue with full dose Lovenox Titrate O2 therapy with goal of 88-92% Lovenox for DVT prophylaxis Regular diet Full code Discussed with RN and SW Dispo pending rehab vs home placement The patient was evaluated during the global COVID-19 pandemic, and that diagnosis was suspected/considered upon their initial presentation. Their evaluation, treatment and testing was consistent with current guidelines for patients who present with complaints or symptoms that may be related to COVID- 19. History of Present Illness History of Present Illness 44-year-old female, who had been having fever and shortness of breath for about a week or so. The patient had outpatient COVID-19 done through [facility] on 01/13/2020 and was informed of positive results on 01/14/2020, which was positive and because of more shortness of breath, she decided to come in. The patient is requiring significant oxygen support. The patient denies any nausea, vomiting or diarrhea. Denies any other complaints other than shortness of breath. 02/15/2020 No acute events overnight. Patient seen and examined bedside and saturating 95 to 97% on 5 L nasal cannula. She has more energy than yesterday and still on IV steroids. Patient is progressively improving each day. 02/14/2020 Patient seen and examined bedside. Patient is still saturating 91% on 5 L nasal cannula. She is sitting up in bed and appears to have more energy compared to yesterday. She has been working with physical therapy 02/12/2020 Patient seen and examined bedside. Patient still requiring 7 L nasal cannula O2. She is saturating 100%. Discussed with RN to titrate down on O2. Speech evaluated and patient is able to tolerate regular diet with thickened liquids. Patient is working well with PT OT. Tolerating diet and ambulating with assistance. 02/11/2020 Patient is doing better today. Still needs 6 to 7 L of O2 and saturating 90%. She did have one large bowel movement. Still pending speech evaluation. PT OT is working with the patient now. 01/31: very awake ealier on 10 versed, and IV fent, doing well on vent, discussed with RT, going down no Fi02 to 65% 02/01: weaning PEEP and oxygen a little, doing a little better, cont current 02/02: weaning slowly, no event, improving slowly 02/04: Still on vent, awake, trying to self extubate. D/w pulm to stay on vent, BiPAP. WBC 16.7 02/05: WBC down to 14.2, afebrile heart rate in 40s comfortable on vent overnight. When sedation was weaned she almost self extubated. ABG 7. 50/39/66 on 50% FiO2 PEEP of 5. COVID-19 CRITERIA: The patient was evaluated during the global COVID-19 pandemic, and that diagnosis was suspected/considered upon their initial presentation. Their evaluation, treatment and testing was consistent with current guidelines for patients who present with complaints or symptoms that may be related to COVID-19. Vitals/I&O Vitals/I&O: Vital Signs Date Time Temp Pulse Resp B/P (MAP) Pulse Ox O2 Delivery O2 Flow Rate FiO2 02/15/20 07:00 96.5 65 18 116/59 (78) 95 Nasal Cannula 5.0 96.5 I & O 02/14/20 02/14/20 02/15/20 15:00 23:00 07:00 Intake Total 720 ml 640 ml Balance 720 ml 640 ml Physical Exam Physical Exam: GENERAL: Patient is alert and awake. NAD HEENT: Moist mucous membranes. No scleral icterus or obvious cervical lymphadenopathy CV: RRR. No murmurs rubs or gallops. Unable to appreciate S3 or S4 PULM: Bilaterally clear to auscultation. Chest expanding equally bilaterally without use of accessory muscles. Patient is able to expel good effort and cough ABD: Soft and nondistended on visualization and palpation. Normoactive bowel sounds heard. EXTREMITIES: No pedal edema seen. No warmth or tenderness upon touch. NEURO: Full ROM in all extremities. Patient has 3 out of 5 strength General: Other Heart: Regular rate Abdomen: Other Extremities: No cyanosis Skin: No breakdown Review of Systems Review of Systems: CONSTITUIONAL: Denies weight loss, fever and chills. HEENT: Denies changes in vision and hearing. RESPIRATORY: Denies SOB and cough. CV: Denies palpitations and CP. GI: Denies abdominal pain, nausea, vomiting and diarrhea. : Denies dysuria and urinary frequency. MSK: Denies myalgia and joint pain. SKIN: Denies rash and pruritus. NEUROLOGICAL: Denies headache and syncope. PSYCHIATRIC: Denies recent changes in mood. Denies anxiety and depression. Assessment and Plan Assessmemt and Plan Problems Medical Problems: (1) Pneumonia due to COVID-19 virus Status: Acute Comment Review of Relevant I have reviewed the following items stephon (where applicable) has been applied. Medications: Current Medications Medications (Trade) Dose Ordered Sig/Wei Route PRN Reason Start Time Stop Time Status Last Admin Dose Admin Fluticasone Propionate (Flonase) 2 spray DAILY NS 02/15/20 09:00 02/15/20 09:26 Justicifation of Admission Dx: Justifications for Admission: Justification of Admission Dx: Yes Respiratory Failure: Severe Resp Distress PONCE LOPEZ MD Feb 15, 2020 11:20
[2020-02-15 11:24] VITALS: BP 113/68
[2020-02-15 15:06] VITALS: BP 119/64
[2020-02-15 19:00] VITALS: BP 122/58
[2020-02-15] MEDS: FAMOTIDINE 20 MG TABLET. PO SCH (21:20)
[2020-02-15 23:00] VITALS: BP 112/64
[2020-02-16] MEDS: IV DEXTROSE 5 %-0.45 % NACL 1,000 ML IV SCH ×2 (02:24→17:37)
[2020-02-16 03:13] VITALS: BP 119/63
[2020-02-16 07:00] VITALS: BP 108/59
[2020-02-16] MEDS: NYSTATIN 100,000 UNITS/ML 5 ML ORAL.SUSP. SWSW SCH ×2 (10:05→21:28)
[2020-02-16] MEDS: ENOXAPARIN 40 MG/0.4 ML SYRINGE. SQ SCH ×2 (10:05→21:28)
[2020-02-16] MEDS: ASCORBIC ACID 500 MG TABLET PO SCH (10:06)
[2020-02-16] MEDS: SENNOSIDES/DOCUSATE 8.6/50MG TABLET. PO SCH ×2 (10:06→21:28)
[2020-02-16] MEDS: ACETAMINOPHEN 325 MG TABLET. PO PRN (10:06)
[2020-02-16] MEDS: THIAMINE 100 MG TABLET. PO SCH (10:06)
[2020-02-16] MEDS: FLUTICASONE 50MCG/NASAL SPRAY 16GM BOTTLE. NS SCH (10:09)
[2020-02-16 10:51] VITALS: BP 115/65
--- NOTE | 2020-02-16 13:56 | PDOC ---
[facility] PROGRESS NOTE Chief Complaint Chief Complaint Oropharyngeal Dysphagiaimproved Critical care myopathyimproved Acute Hypoxic Respiratory Failure Secondary to COVID-19 and sepsis pneumonia multifocal pulmonary infiltrates.// follow-up to resolution. Morbid Obesity, BMI 44 HTN NORMOCYTIC ANEMIA severe protein-caloric malnutrition Critical care myopathy Continue with speech recommendations for regular diet and thickened liquids Continue PT OT who recommends acute rehab Appreciate pulmonary recommendations Continue with daily Solu-Medrol Continue with full dose Lovenox Titrate O2 therapy with goal of 88-92% Lovenox for DVT prophylaxis Regular diet Full code Discussed with RN and SW Dispo pending rehab vs home placement. Patient likely may be able to discharge home without any rehab or home O2 requirements. The patient was evaluated during the global COVID-19 pandemic, and that diagnosis was suspected/considered upon their initial presentation. Their evaluation, treatment and testing was consistent with current guidelines for patients who present with complaints or symptoms that may be related to COVID- 19. History of Present Illness History of Present Illness 44-year-old female, who had been having fever and shortness of breath for about a week or so. The patient had outpatient COVID-19 done through [facility] on 01/13/2020 and was informed of positive results on 01/14/2020, which was positive and because of more shortness of breath, she decided to come in. The patient is requiring significant oxygen support. The patient denies any nausea, vomiting or diarrhea. Denies any other complaints other than shortness of breath. 02/16/2020 No acute events overnight. Patient seen and examined bedside she is saturating 97% on 4 L nasal cannula. Patient continues to significantly improve 02/15/2020 No acute events overnight. Patient seen and examined bedside and saturating 95 to 97% on 5 L nasal cannula. She has more energy than yesterday and still on IV steroids. Patient is progressively improving each day. 02/14/2020 Patient seen and examined bedside. Patient is still saturating 91% on 5 L nasal cannula. She is sitting up in bed and appears to have more energy compared to yesterday. She has been working with physical therapy 02/12/2020 Patient seen and examined bedside. Patient still requiring 7 L nasal cannula O2. She is saturating 100%. Discussed with RN to titrate down on O2. Speech evaluated and patient is able to tolerate regular diet with thickened liquids. Patient is working well with PT OT. Tolerating diet and ambulating with assistance. 02/11/2020 Patient is doing better today. Still needs 6 to 7 L of O2 and saturating 90%. She did have one large bowel movement. Still pending speech evaluation. PT OT is working with the patient now. 01/31: very awake ealier on 10 versed, and IV fent, doing well on vent, discussed with RT, going down no Fi02 to 65% 02/01: weaning PEEP and oxygen a little, doing a little better, cont current 02/02: weaning slowly, no event, improving slowly 02/04: Still on vent, awake, trying to self extubate. D/w pulm to stay on vent, BiPAP. WBC 16.7 02/05: WBC down to 14.2, afebrile heart rate in 40s comfortable on vent overnight. When sedation was weaned she almost self extubated. ABG 7. 50/39/66 on 50% FiO2 PEEP of 5. COVID-19 CRITERIA: The patient was evaluated during the global COVID-19 pandemic, and that diagnosis was suspected/considered upon their initial presentation. Their evaluation, treatment and testing was consistent with current guidelines for patients who present with complaints or symptoms that may be related to COVID-19. Vitals/I&O Vitals/I&O: Vital Signs Date Time Temp Pulse Resp B/P (MAP) Pulse Ox O2 Delivery O2 Flow Rate FiO2 02/16/20 10:51 97.4 75 19 115/65 (82) 94 Nasal Cannula 4.0 97.4 I & O 02/15/20 02/15/20 02/16/20 15:00 23:00 07:00 Intake Total 450 ml 450 ml Balance 450 ml 450 ml Physical Exam Physical Exam: GENERAL: Patient is alert and awake. NAD HEENT: Moist mucous membranes. No scleral icterus or obvious cervical lymphadenopathy CV: RRR. No murmurs rubs or gallops. Unable to appreciate S3 or S4 PULM: Bilaterally clear to auscultation. Chest expanding equally bilaterally without use of accessory muscles. Patient is able to expel good effort and cough ABD: Soft and nondistended on visualization and palpation. Normoactive bowel sounds heard. EXTREMITIES: No pedal edema seen. No warmth or tenderness upon touch. NEURO: Full ROM in all extremities. Patient has 3 out of 5 strength General: Other Heart: Regular rate Abdomen: Other Extremities: No cyanosis Skin: No breakdown Review of Systems Review of Systems: CONSTITUIONAL: Denies weight loss, fever and chills. HEENT: Denies changes in vision and hearing. RESPIRATORY: Denies SOB and cough. CV: Denies palpitations and CP. GI: Denies abdominal pain, nausea, vomiting and diarrhea. : Denies dysuria and urinary frequency. MSK: Denies myalgia and joint pain. SKIN: Denies rash and pruritus. NEUROLOGICAL: Denies headache and syncope. PSYCHIATRIC: Denies recent changes in mood. Denies anxiety and depression. Assessment and Plan Assessmemt and Plan Problems Medical Problems: (1) Pneumonia due to COVID-19 virus Status: Acute Comment Review of Relevant I have reviewed the following items stephon (where applicable) has been applied. Justicifation of Admission Dx: Justifications for Admission: Justification of Admission Dx: Yes Respiratory Failure: Severe Resp Distress PONCE LOPEZ MD Feb 16, 2020 13:56
[2020-02-16 15:11] VITALS: BP 127/71
[2020-02-16 19:00] VITALS: BP 104/58
[2020-02-16] MEDS: FAMOTIDINE 20 MG TABLET. PO SCH (21:28)
[2020-02-16 23:00] VITALS: BP 116/56
[2020-02-17 03:00] VITALS: BP 138/82
[2020-02-17] MEDS: IV DEXTROSE 5 %-0.45 % NACL 1,000 ML IV SCH (05:58)
[2020-02-17 06:12] LABS: BASO % 1 % (0-3); EOS # 0.6 x10^3/uL (0.0-0.7); EOS % 10 % (0-3); HEMATOCRIT 30.1 % (36.0-47.0); HEMOGLOBIN 10.2 g/dL (12.0-15.5); LYMPH # 1.2 x10^3/uL (1.0-4.8); LYMPH % 19 % (24-48); MEAN CORPUSCULAR HEMOGLOBIN 30 pg (25-35); MEAN CORPUSCULAR HGB CONC 34 g/dL (31-37); MEAN CORPUSCULAR VOLUME 87 fL (79-100); MONO # 0.4 x10^3/uL (0.0-1.1); MONO % 7 % (0-9); NEUT % 64 % (31-73); PLATELET COUNT 194 x10^3/uL (140-400); RED BLOOD COUNT 3.45 x10^6/uL (3.50-5.40); RED CELL DISTRIBUTION WIDTH 18.8 % (11.5-14.5); WHITE BLOOD COUNT 6.3 x10^3/uL (4.0-11.0)
[2020-02-17 06:45] LABS: CALCIUM 7.9 mg/dL (8.5-10.1); CREATININE 0.5 mg/dL (0.6-1.0); MAGNESIUM 2.1 mg/dL (1.8-2.4); PHOSPHORUS 4.3 mg/dL (2.6-4.7); POTASSIUM 3.7 mmol/L (3.5-5.1)
[2020-02-17 07:30] VITALS: BP 134/76
[2020-02-17] MEDS: FLUTICASONE 50MCG/NASAL SPRAY 16GM BOTTLE. NS SCH (09:41)
[2020-02-17] MEDS: ASCORBIC ACID 500 MG TABLET PO SCH (09:42)
[2020-02-17] MEDS: ENOXAPARIN 40 MG/0.4 ML SYRINGE. SQ SCH ×2 (09:42→21:42)
[2020-02-17] MEDS: NYSTATIN 100,000 UNITS/ML 5 ML ORAL.SUSP. SWSW SCH ×2 (09:42→21:44)
[2020-02-17] MEDS: THIAMINE 100 MG TABLET. PO SCH (09:42)
[2020-02-17] MEDS: SENNOSIDES/DOCUSATE 8.6/50MG TABLET. PO SCH ×2 (09:42→21:42)
--- NOTE | 2020-02-17 10:49 | PDOC ---
PROGRESS NOTES Chief Complaint Chief Complaint Oropharyngeal Dysphagiaimproved Critical care myopathyimproved Acute Hypoxic Respiratory Failure Secondary to COVID-19 and sepsis pneumonia multifocal pulmonary infiltrates.// follow-up to resolution. Morbid Obesity, BMI 44 HTN NORMOCYTIC ANEMIA severe protein-caloric malnutrition Critical care myopathy Continue with speech recommendations for regular diet and thickened liquids Continue PT OT who recommends acute rehab Appreciate pulmonary recommendations Continue with daily Solu-Medrol Continue with full dose Lovenox Titrate O2 therapy with goal of 88-92% Lovenox for DVT prophylaxis Regular diet Full code Discussed with RN and SW Dispo pending rehab vs home placement. Patient likely may be able to discharge home without any rehab or home O2 requirements. The patient was evaluated during the global COVID-19 pandemic, and that diagnosis was suspected/considered upon their initial presentation. Their evaluation, treatment and testing was consistent with current guidelines for patients who present with complaints or symptoms that may be related to COVID- 19. History of Present Illness History of Present Illness Ms Hackett is a 44-year-old female, who had been having fever and shortness of breath for about a week or so. The patient had outpatient COVID-19 done through [facility] on 01/13/2020 and was informed of positive results on 01/14/2020, which was positive and because of more shortness of breath, she decided to come in. The patient is requiring significant oxygen support. The patient denies any nausea, vomiting or diarrhea. Denies any other complaints other than shortness of breath. 01/31: very awake ealier on 10 versed, and IV fent, doing well on vent, discussed with RT, going down no Fi02 to 65% 02/01: weaning PEEP and oxygen a little, doing a little better, cont current 02/02: weaning slowly, no event, improving slowly 02/04: Still on vent, awake, trying to self extubate. D/w pulm to stay on vent, BiPAP. WBC 16.7 02/05: WBC down to 14.2, afebrile heart rate in 40s comfortable on vent overnight. When sedation was weaned she almost self extubated. ABG 7. 50/39/66 on 50% FiO2 PEEP of 5. 7/10: Extubated without event 02/10: Patient is doing better today. Still needs 6 to 7 L of O2 and saturating 90%. She did have one large bowel movement. Still pending speech evaluation. PT OT is working with the patient now. 02/11: Requiring 7 L nasal cannula O2. She is saturating 100%. Discussed with RN to titrate down on O2. Speech evaluated and patient is able to tolerate regular diet with thickened liquids. Patient is working well with PT OT. 02/13: Saturating 91% on 5 L nasal cannula. She is sitting up in bed and appears to have more energy compared to yesterday. She has been working with physical therapy 02/14: Saturating 95 to 97% on 5 L nasal cannula. She has more energy than yesterday and still on IV steroids. Patient is progressively improving each day. 02/15: Saturating 97% on 4 L nasal cannula. Patient continues to significantly improve Afebrile, O2 sats 95% on 5 L nasal cannula. Seen on commode. She still having difficulty getting a deep breath, tries but she can't. Says she feels "mass mejor". COVID-19 CRITERIA: The patient was evaluated during the global COVID-19 pandemic, and that diagnosis was suspected/considered upon their initial presentation. Their evaluation, treatment and testing was consistent with current guidelines for patients who present with complaints or symptoms that may be related to COVID-19. Vitals Vitals Vital Signs Date Time Temp Pulse Resp B/P (MAP) Pulse Ox O2 Delivery O2 Flow Rate FiO2 02/17/20 07:30 106 18 134/76 (95) 89 Nasal Cannula 5.0 02/17/20 03:00 98.0 98.0 Physical Exam Physical Exam GENERAL: Patient is alert and awake. NAD HEENT: Moist mucous membranes. No scleral icterus or obvious cervical lymphadenopathy CV: RRR. No murmurs rubs or gallops. Unable to appreciate S3 or S4 PULM: Bilaterally clear to auscultation. Chest expanding equally bilaterally without use of accessory muscles. Patient is able to expel good effort and cough ABD: Soft and nondistended on visualization and palpation. Normoactive bowel sounds heard. EXTREMITIES: No pedal edema seen. No warmth or tenderness upon touch. NEURO: Full ROM in all extremities. Patient has 3 out of 5 strength General: Other Heart: Regular rate Abdomen: Other Extremities: No cyanosis Skin: No breakdown Labs LABS Laboratory Tests Test 02/17/20 05:00 White Blood Count 6.3 x10^3/uL (4.0-11.0) Red Blood Count 3.45 x10^6/uL (3.50-5.40) Hemoglobin 10.2 g/dL (12.0-15.5) Hematocrit 30.1 % (36.0-47.0) Mean Corpuscular Volume 87 fL (79-100) Mean Corpuscular Hemoglobin 30 pg (25-35) Mean Corpuscular Hemoglobin Concent 34 g/dL (31-37) Red Cell Distribution Width 18.8 % (11.5-14.5) Platelet Count 194 x10^3/uL (140-400) Neutrophils (%) (Auto) 64 % (31-73) Lymphocytes (%) (Auto) 19 % (24-48) Monocytes (%) (Auto) 7 % (0-9) Eosinophils (%) (Auto) 10 % (0-3) Basophils (%) (Auto) 1 % (0-3) Neutrophils # (Auto) 4.0 x10^3/uL (1.8-7.7) Lymphocytes # (Auto) 1.2 x10^3/uL (1.0-4.8) Monocytes # (Auto) 0.4 x10^3/uL (0.0-1.1) Eosinophils # (Auto) 0.6 x10^3/uL (0.0-0.7) Basophils # (Auto) 0.0 x10^3/uL (0.0-0.2) Sodium Level 144 mmol/L (136-145) Potassium Level 3.7 mmol/L (3.5-5.1) Chloride Level 108 mmol/L (98-107) Carbon Dioxide Level 31 mmol/L (21-32) Anion Gap 5 (6-14) Blood Urea Nitrogen 7 mg/dL (7-20) Creatinine 0.5 mg/dL (0.6-1.0) Estimated GFR (Cockcroft-Gault) 134.0 Glucose Level 94 mg/dL (70-99) Calcium Level 7.9 mg/dL (8.5-10.1) Phosphorus Level 4.3 mg/dL (2.6-4.7) Magnesium Level 2.1 mg/dL (1.8-2.4) Assessment and Plan Assessmemt and Plan Problems Medical Problems: (1) Pneumonia due to COVID-19 virus Status: Acute Comment Review of Relevant I have reviewed the following items stephon (where applicable) has been applied. Labs Laboratory Tests Test 02/17/20 05:00 White Blood Count 6.3 x10^3/uL (4.0-11.0) Red Blood Count 3.45 x10^6/uL (3.50-5.40) Hemoglobin 10.2 g/dL (12.0-15.5) Hematocrit 30.1 % (36.0-47.0) Mean Corpuscular Volume 87 fL (79-100) Mean Corpuscular Hemoglobin 30 pg (25-35) Mean Corpuscular Hemoglobin Concent 34 g/dL (31-37) Red Cell Distribution Width 18.8 % (11.5-14.5) Platelet Count 194 x10^3/uL (140-400) Neutrophils (%) (Auto) 64 % (31-73) Lymphocytes (%) (Auto) 19 % (24-48) Monocytes (%) (Auto) 7 % (0-9) Eosinophils (%) (Auto) 10 % (0-3) Basophils (%) (Auto) 1 % (0-3) Neutrophils # (Auto) 4.0 x10^3/uL (1.8-7.7) Lymphocytes # (Auto) 1.2 x10^3/uL (1.0-4.8) Monocytes # (Auto) 0.4 x10^3/uL (0.0-1.1) Eosinophils # (Auto) 0.6 x10^3/uL (0.0-0.7) Basophils # (Auto) 0.0 x10^3/uL (0.0-0.2) Sodium Level 144 mmol/L (136-145) Potassium Level 3.7 mmol/L (3.5-5.1) Chloride Level 108 mmol/L (98-107) Carbon Dioxide Level 31 mmol/L (21-32) Anion Gap 5 (6-14) Blood Urea Nitrogen 7 mg/dL (7-20) Creatinine 0.5 mg/dL (0.6-1.0) Estimated GFR (Cockcroft-Gault) 134.0 Glucose Level 94 mg/dL (70-99) Calcium Level 7.9 mg/dL (8.5-10.1) Phosphorus Level 4.3 mg/dL (2.6-4.7) Magnesium Level 2.1 mg/dL (1.8-2.4) Laboratory Tests Test 02/17/20 05:00 White Blood Count 6.3 x10^3/uL (4.0-11.0) Red Blood Count 3.45 x10^6/uL (3.50-5.40) Hemoglobin 10.2 g/dL (12.0-15.5) Hematocrit 30.1 % (36.0-47.0) Mean Corpuscular Volume 87 fL (79-100) Mean Corpuscular Hemoglobin 30 pg (25-35) Mean Corpuscular Hemoglobin Concent 34 g/dL (31-37) Red Cell Distribution Width 18.8 % (11.5-14.5) Platelet Count 194 x10^3/uL (140-400) Neutrophils (%) (Auto) 64 % (31-73) Lymphocytes (%) (Auto) 19 % (24-48) Monocytes (%) (Auto) 7 % (0-9) Eosinophils (%) (Auto) 10 % (0-3) Basophils (%) (Auto) 1 % (0-3) Neutrophils # (Auto) 4.0 x10^3/uL (1.8-7.7) Lymphocytes # (Auto) 1.2 x10^3/uL (1.0-4.8) Monocytes # (Auto) 0.4 x10^3/uL (0.0-1.1) Eosinophils # (Auto) 0.6 x10^3/uL (0.0-0.7) Basophils # (Auto) 0.0 x10^3/uL (0.0-0.2) Sodium Level 144 mmol/L (136-145) Potassium Level 3.7 mmol/L (3.5-5.1) Chloride Level 108 mmol/L (98-107) Carbon Dioxide Level 31 mmol/L (21-32) Anion Gap 5 (6-14) Blood Urea Nitrogen 7 mg/dL (7-20) Creatinine 0.5 mg/dL (0.6-1.0) Estimated GFR (Cockcroft-Gault) 134.0 Glucose Level 94 mg/dL (70-99) Calcium Level 7.9 mg/dL (8.5-10.1) Phosphorus Level 4.3 mg/dL (2.6-4.7) Magnesium Level 2.1 mg/dL (1.8-2.4) Medications Current Medications Acetaminophen (Tylenol) 1,000 mg 1X ONCE PO Last administered on 01/21/20at 17:00; Start 01/21/20 at 17:00; Stop 01/21/20 at 17:01; Status DC Ondansetron HCl (Zofran) 4 mg PRN Q8HRS PRN IV NAUSEA/VOMITING; Start 01/21/20 at 18:00; Stop 01/22/20 at 07:55; Status DC Dexamethasone Sodium Phosphate (Decadron) 6 mg 1X ONCE IVP Last administered on 01/21/20at 18:14; Start 01/21/20 at 18:00; Stop 01/21/20 at 18:01; Status DC Ceftriaxone Sodium (Rocephin) 1 gm 1X ONCE IVP Last administered on 01/21/20at 18:14; Start 01/21/20 at 18:00; Stop 01/21/20 at 18:01; Status DC Azithromycin 500 mg/Sodium Chloride 250 ml @ 250 mls/hr Q24H IV Last ad ministered on 01/25/20at 19:00; Start 01/22/20 at 19:00; Stop 01/26/20 at 09:05; Status DC Azithromycin 250 ml @ 250 mls/hr 1X ONCE IV Last administered on 01/21/20at 18:25; Start 01/21/20 at 18:15; Stop 01/21/20 at 19:14; Status DC Dexamethasone Sodium Phosphate (Decadron) 6 mg DAILY IVP Last administered on 02/06/20at 09:17; Start 01/22/20 at 09:00; Stop 02/06/20 at 14:50; Status DC Ceftriaxone Sodium (Rocephin) 1 gm Q24H IVP Last administered on 01/29/20at 20:14; Start 01/22/20 at 20:00; Stop 01/30/20 at 16:07; Status DC Azithromycin 250 ml @ 250 mls/hr 1X ONCE IV ; Start 01/21/20 at 19:45; Stop 01/21/20 at 20:44; Status UNV Acetaminophen (Tylenol) 650 mg PRN Q6HRS PRN PO Headaches, Temp > 101.5' Last administered on 02/16/20at 10:06; Start 01/21/20 at 19:45 Ondansetron HCl (Zofran) 4 mg PRN Q6HRS PRN IVP NAUSEA/VOMITING; Start 01/21/20 at 19:45 Al Hydroxide/Mg Hydroxide (Mylanta Plus Xs) 30 ml PRN Q3HRS PRN PO HEARTBURN / GAS; Start 01/21/20 at 19:45 Famotidine (Pepcid) 20 mg BID PO Last administered on 02/05/20at 07:56; Start 01/21/20 at 21:00; Stop 02/05/20 at 20:05; Status DC Enoxaparin Sodium (Lovenox 40mg Syringe) 40 mg Q24H SQ Last administered on 01/21/20at 21:07; Start 01/21/20 at 20:00; Stop 01/22/20 at 10:45; Status DC Sodium Chloride (Normal Saline Flush) 3 ml QSHIFT PRN IV AFTER MEDS AND BLOOD DRAWS; Start 01/21/20 at 19:45 Senna/Docusate Sodium (Senna Plus) 1 tab BID PO Last administered on 02/17/20at 09:42; Start 01/21/20 at 21:00 Magnesium Hydroxide (Milk Of Magnesia) 2,400 mg PRN Q12HR PRN PO CONSTIPATION; Start 01/21/20 at 19:45 Sterile Water (WATER for RESP) 1,000 ml CONT PRN INH VIA VAPOTHERM DEVICE Last administered on 01/23/20at 12:46; Start 01/22/20 at 04:30; Stop 02/05/20 at 09:43; Status DC Lactobacillus Rhamnosus (Culturelle) 1 cap BID PO Last administered on 02/04/20at 07:15; Start 01/22/20 at 09:00; Stop 02/04/20 at 10:38; Status DC Non-Formulary Medication 1 ea/ Sodium Chloride 210 ml @ 420 mls/hr ONCE ONCE IV Last administered on 01/22/20at 10:44; Start 01/22/20 at 11:00; Stop 01/22/20 at 11:29; Status DC Non-Formulary Medication 1 ea/ Sodium Chloride 230 ml @ 460 mls/hr DAILY IV Last administered on 01/26/20at 09:58; Start 01/23/20 at 09:00; Stop 01/26/20 at 09:29; Status DC Enoxaparin Sodium (Lovenox 40mg Syringe) 40 mg BID SQ Last administered on 01/30/20at 20:39; Start 01/22/20 at 11:00; Stop 01/30/20 at 20:57; Status DC Lorazepam (Ativan Inj) 0.5 mg PRN Q4HRS PRN IVP ANXIETY / AGITATION 1ST CHOICE Last administered on 02/09/20at 02:13; Start 01/23/20 at 21:00; Stop 02/10/20 at 16:09; Status DC Lorazepam (Ativan Inj) 0.05 mg 1X ONCE IVP Last administered on 01/23/20at 21:13; Start 01/23/20 at 21:15; Stop 01/23/20 at 21:31; Status DC Fentanyl Citrate 30 ml @ 0 mls/hr CONT PRN IV SEE PROTOCOL Last administered on 02/01/20at 21:15; Start 01/23/20 at 22:45; Stop 02/02/20 at 02:27; Status DC Propofol 100 ml @ 0 mls/hr CONT PRN IV SEE PROTOCOL Last administered on 02/06/20at 04:59; Start 01/23/20 at 22:45; Stop 02/06/20 at 13:18; Status DC Midazolam HCl 100 ml @ 0 mls/hr CONT PRN IV SEE PROTOCOL Last administered on 02/04/20at 01:57; Start 01/23/20 at 22:45; Stop 02/06/20 at 13:18; Status DC Vecuronium [place] (Norcuron Bolus) 10 mg STK-MED ONCE IV ; Start 01/23/20 at 23:24; Stop 01/23/20 at 23:25; Status DC Vecuronium [place] (Norcuron Bolus) 60 mg 1X ONCE IV Last administered on 01/23/20at 23:30; Start 01/23/20 at 23:30; Stop 01/23/20 at 23:35; Status DC Norepinephrine Bitartrate 8 mg/ Dextrose 258 ml @ 20.666 mls/ hr CONT PRN IV PER PROTOCOL Last administered on 01/24/20at 12:28; Start 01/24/20 at 02:15; Stop 02/09/20 at 09:50; Status DC Vecuronium [place] (Norcuron Bolus) 6 mg PRN Q4HRS PRN IV SEDATION Last administered on 01/24/20at 15:40; Start 01/24/20 at 04:30; Stop 02/06/20 at 19:06; Status DC Succinylcholine Chloride (Anectine) 200 mg STK-MED ONCE .ROUTE ; Start 01/23/20 at 23:00; Stop 01/24/20 at 08:24; Status DC Etomidate (Amidate) 20 mg STK-MED ONCE IV ; Start 01/23/20 at 23:00; Stop 01/24/20 at 08:24; Status DC Ringer's Solution 1,000 ml @ 75 mls/hr [id number] IV Last administered on 01/25/20at 16:21; Start 01/24/20 at 12:30; Stop 01/26/20 at 09:17; Status DC Hydralazine HCl (Apresoline Inj) 10 mg PRN Q4HRS PRN IVP ELEVATED BP, SEE COMMENTS; Start 01/28/20 at 14:00 Heparin Sodium/ Dextrose 250 ml @ 17.6 mls/hr CONT PRN IV PER PROTOCOL Last administered on 02/05/20at 01:58; Start 01/30/20 at 21:00; Stop 02/05/20 at 20:07; Status DC Heparin Sodium (Porcine) (Heparin Sodium) 3,300 unit PRN Q6HRS PRN IV FOR UFH LEVEL LESS THAN 0.2; Start 01/30/20 at 21:00; Stop 02/06/20 at 16:22; Status DC Heparin Sodium (Porcine) (Heparin Sodium) 1,650 unit PRN Q6HRS PRN IV FOR UFH LEVEL 0.2 - 0.29 Last administered on 02/04/20at 15:13; Start 01/30/20 at 21:00; Stop 02/06/20 at 16:23; Status DC Heparin Sodium (Porcine) (Heparin Sodium) 8,700 unit 1X ONCE IV Last administered on 01/31/20at 08:20; Start 01/31/20 at 07:15; Stop 01/31/20 at 07:16; Status DC Fentanyl Citrate 55 ml @ 0 mls/hr CONT PRN PRN IV PAIN/SEDATION Last administered on 02/05/20at 02:06; Start 02/02/20 at 02:30; Stop 02/06/20 at 19:06; Status DC Nystatin (Nystatin Oral Susp) 5 ml BID SWSW Last administered on 02/17/20at 09:42; Start 02/02/20 at 09:00 Furosemide (Lasix) 40 mg 1X ONCE IVP Last administered on 02/04/20at 17:12; Start 02/04/20 at 16:00; Stop 02/04/20 at 16:01; Status DC Dexmedetomidine HCl 400 mcg/ Sodium Chloride 100 ml @ 0 mls/hr CONT PRN IV SEE COMMENTS Last administered on 02/06/20at 09:08; Start 02/05/20 at 07:30; Stop 02/09/20 at 09:49; Status DC Sodium Chloride 500 ml @ 500 mls/hr 1X PRN PRN IV ANXIETY / AGITATION; Start 02/05/20 at 07:30; Stop 02/10/20 at 11:01; Status DC Atropine Sulfate (ATROPINE 0.5mg SYRINGE) 0.5 mg PRN Q5MIN PRN IV SEE COMMENTS; Start 02/05/20 at 07:30 Info (Anti-Coagulation Monitoring By Pharmacy) 1 each PRN DAILY PRN MC SEE COMMENTS Last administered on 02/10/20at 15:26; Start 02/05/20 at 07:45; Stop 02/10/20 at 16:09; Status DC Famotidine (Pepcid Vial) 40 mg BID IVP Last administered on 02/13/20at 08:22; Start 02/05/20 at 21:00; Stop 02/13/20 at 10:05; Status DC Haloperidol Lactate (Haldol Inj) 5 mg PRN Q6HRS PRN IVP AGITATION (2ND CHOICE); Start 02/06/20 at 15:00; Stop 02/10/20 at 16:09; Status DC Methylprednisolone Sodium Succinate (SOLU-Medrol 40MG VIAL) 40 mg Q12HR IV Last administered on 02/10/20at 10:31; Start 02/06/20 at 21:00; Stop 02/10/20 at 16:09; Status DC Diphenhydramine HCl (Benadryl) 50 mg 1X ONCE IVP Last administered on 02/06/20at 18:42; Start 02/06/20 at 18:45; Stop 02/06/20 at 18:46; Status DC Sodium Chloride 1,000 ml @ 50 mls/hr 1X ONCE IV Last administered on 02/07/20at 10:15; Start 02/07/20 at 10:15; Stop 02/08/20 at 06:14; Status DC Heparin Sodium/ Dextrose 250 ml @ 15.776 mls/ hr CONT PRN IV PER PROTOCOL Last administered on 02/09/20at 20:36; Start 02/07/20 at 14:30; Stop 02/10/20 at 16:09; Status DC Heparin Sodium (Porcine) (Heparin Sodium) 2,950 unit PRN Q6HRS PRN IV FOR UFH LEVEL LESS THAN 0.2; Start 02/07/20 at 14:30; Stop 02/10/20 at 16:09; Status DC Heparin Sodium (Porcine) (Heparin Sodium) 1,500 unit PRN Q6HRS PRN IV FOR UFH LEVEL 0.2 - 0.29; Start 02/07/20 at 14:30; Stop 02/10/20 at 16:09; Status DC Bisacodyl (Dulcolax Supp) 10 mg 1X ONCE IA ; Start 02/10/20 at 10:15; Stop 02/10/20 at 10:16; Status DC Dextrose/Sodium Chloride 1,000 ml @ 75 mls/hr [id number] IV Last administered on 02/17/20at 05:58; Start 02/10/20 at 14:00 Methylprednisolone Sodium Succinate (SOLU-Medrol 40MG VIAL) 40 mg DAILY IV Last administered on 02/13/20at 08:21; Start 02/11/20 at 09:00; Stop 02/13/20 at 17:14; Status DC Enoxaparin Sodium (Lovenox 40mg Syringe) 40 mg Q12HR SQ Last administered on 02/17/20at 09:42; Start 02/10/20 at 21:00 Famotidine (Pepcid) 20 mg QHS PO Last administered on 02/16/20at 21:28; Start 02/13/20 at 21:00 Ascorbic Acid (Vitamin C) 500 mg DAILY PO Last administered on 02/17/20 09:42; Start 02/13/20 at 17:00 Thiamine Mononitrate (Vitamin B-1) 100 mg DAILY PO Last administered on 02/17/20 09:42; Start 02/13/20 at 17:00 Fluticasone Propionate (Flonase) 2 spray DAILY NS Last administered on 02/17/20 09:41; Start 02/15/20 at 09:00 Active Scripts Active Keflex (Cephalexin) 500 Mg Capsule 500 Mg PO QID 10 Days [place] 5-325 Tablet (Acetaminophen/Hydrocodone Bitart) 1 Each Tablet 1 Tab PO PRN Q6HRS PRN Vitals/I & O Vital Sign - Last 24 Hours 02/16/20 02/16/20 02/16/20 02/16/20 10:51 15:11 19:00 19:55 Temp 97.4 97.8 98.1 97.4 97.8 98.1 Pulse 75 85 74 Resp 23 B/P (MAP) 115/65 (82) 127/71 (89) 104/58 (73) Pulse Ox 94 95 92 O2 Delivery Nasal Cannula Nasal Cannula Nasal Cannula Nasal Cannula O2 Flow Rate 4.0 3.0 2.5 3.0 02/16/20 02/17/20 02/17/20 23:00 03:00 07:30 Temp 97.0 98.0 97.0 98.0 Pulse 74 74 106 Resp 18 B/P (MAP) 116/56 (76) 138/82 (100) 134/76 (95) Pulse Ox 95 95 89 O2 Delivery Room Air Room Air Nasal Cannula O2 Flow Rate 5.0 Intake and Output 02/16/20 02/16/20 02/17/20 15:00 23:00 07:00 Intake Total 650 ml 300 ml Output Total 500 ml 0 ml Balance 650 ml -200 ml 0 ml Justicifation of Admission Dx: Justifications for Admission: Justification of Admission Dx: Yes Respiratory Failure: Severe Resp Distress THA NOBLE MD Feb 17, 2020 10:49
[2020-02-17 11:30] VITALS: BP 137/75
--- NOTE | 2020-02-17 15:16 | PDOC ---
PROGRESS NOTES Assessment Problems Medical Problems: (1) Pneumonia due to COVID-19 virus Status: Acute Dysconjugate gaze, no recurrence, patient was in the midst of sedation and severe metabolic encephalopathy. Respiratory failure secondary to COVID-19 and sepsis Pneumonia, obesity, hypertension, anemia, protein-calorie malnutrition Plan Holding off on brain imaging studies given her neurological improvement Neurology signs off Subjective Denies headache or visual symptoms Objective Vital Signs Date Time Temp Pulse Resp B/P (MAP) Pulse Ox O2 Delivery O2 Flow Rate FiO2 02/17/20 11:30 96.3 97 18 137/75 (95) 93 Nasal Cannula 6.0 96.3 Intake and Output 02/17/20 07:00 Intake Total 950 ml Output Total 500 ml Balance 450 ml Intake Oral 950 ml Output Urine Total 500 ml # Voids 8 # Bowel Movements 1 PHYSICAL EXAM Brief exam, normal extraocular movements. Review of Relevant I have reviewed the following items stephon (where applicable) has been applied. Labs Laboratory Tests Test 02/17/20 05:00 White Blood Count 6.3 x10^3/uL (4.0-11.0) Red Blood Count 3.45 x10^6/uL (3.50-5.40) Hemoglobin 10.2 g/dL (12.0-15.5) Hematocrit 30.1 % (36.0-47.0) Mean Corpuscular Volume 87 fL (79-100) Mean Corpuscular Hemoglobin 30 pg (25-35) Mean Corpuscular Hemoglobin Concent 34 g/dL (31-37) Red Cell Distribution Width 18.8 % (11.5-14.5) Platelet Count 194 x10^3/uL (140-400) Neutrophils (%) (Auto) 64 % (31-73) Lymphocytes (%) (Auto) 19 % (24-48) Monocytes (%) (Auto) 7 % (0-9) Eosinophils (%) (Auto) 10 % (0-3) Basophils (%) (Auto) 1 % (0-3) Neutrophils # (Auto) 4.0 x10^3/uL (1.8-7.7) Lymphocytes # (Auto) 1.2 x10^3/uL (1.0-4.8) Monocytes # (Auto) 0.4 x10^3/uL (0.0-1.1) Eosinophils # (Auto) 0.6 x10^3/uL (0.0-0.7) Basophils # (Auto) 0.0 x10^3/uL (0.0-0.2) Sodium Level 144 mmol/L (136-145) Potassium Level 3.7 mmol/L (3.5-5.1) Chloride Level 108 mmol/L (98-107) Carbon Dioxide Level 31 mmol/L (21-32) Anion Gap 5 (6-14) Blood Urea Nitrogen 7 mg/dL (7-20) Creatinine 0.5 mg/dL (0.6-1.0) Estimated GFR (Cockcroft-Gault) 134.0 Glucose Level 94 mg/dL (70-99) Calcium Level 7.9 mg/dL (8.5-10.1) Phosphorus Level 4.3 mg/dL (2.6-4.7) Magnesium Level 2.1 mg/dL (1.8-2.4) Laboratory Tests Test 02/17/20 05:00 White Blood Count 6.3 x10^3/uL (4.0-11.0) Red Blood Count 3.45 x10^6/uL (3.50-5.40) Hemoglobin 10.2 g/dL (12.0-15.5) Hematocrit 30.1 % (36.0-47.0) Mean Corpuscular Volume 87 fL (79-100) Mean Corpuscular Hemoglobin 30 pg (25-35) Mean Corpuscular Hemoglobin Concent 34 g/dL (31-37) Red Cell Distribution Width 18.8 % (11.5-14.5) Platelet Count 194 x10^3/uL (140-400) Neutrophils (%) (Auto) 64 % (31-73) Lymphocytes (%) (Auto) 19 % (24-48) Monocytes (%) (Auto) 7 % (0-9) Eosinophils (%) (Auto) 10 % (0-3) Basophils (%) (Auto) 1 % (0-3) Neutrophils # (Auto) 4.0 x10^3/uL (1.8-7.7) Lymphocytes # (Auto) 1.2 x10^3/uL (1.0-4.8) Monocytes # (Auto) 0.4 x10^3/uL (0.0-1.1) Eosinophils # (Auto) 0.6 x10^3/uL (0.0-0.7) Basophils # (Auto) 0.0 x10^3/uL (0.0-0.2) Sodium Level 144 mmol/L (136-145) Potassium Level 3.7 mmol/L (3.5-5.1) Chloride Level 108 mmol/L (98-107) Carbon Dioxide Level 31 mmol/L (21-32) Anion Gap 5 (6-14) Blood Urea Nitrogen 7 mg/dL (7-20) Creatinine 0.5 mg/dL (0.6-1.0) Estimated GFR (Cockcroft-Gault) 134.0 Glucose Level 94 mg/dL (70-99) Calcium Level 7.9 mg/dL (8.5-10.1) Phosphorus Level 4.3 mg/dL (2.6-4.7) Magnesium Level 2.1 mg/dL (1.8-2.4) Medications Current Medications Acetaminophen (Tylenol) 1,000 mg 1X ONCE PO Last administered on 01/21/20at 17:00; Start 01/21/20 at 17:00; Stop 01/21/20 at 17:01; Status DC Ondansetron HCl (Zofran) 4 mg PRN Q8HRS PRN IV NAUSEA/VOMITING; Start 01/21/20 at 18:00; Stop 01/22/20 at 07:55; Status DC Dexamethasone Sodium Phosphate (Decadron) 6 mg 1X ONCE IVP Last administered on 01/21/20at 18:14; Start 01/21/20 at 18:00; Stop 01/21/20 at 18:01; Status DC Ceftriaxone Sodium (Rocephin) 1 gm 1X ONCE IVP Last administered on 01/21/20at 18:14; Start 01/21/20 at 18:00; Stop 01/21/20 at 18:01; Status DC Azithromycin 500 mg/Sodium Chloride 250 ml @ 250 mls/hr Q24H IV Last administered on 01/25/20at 19:00; Start 01/22/20 at 19:00; Stop 01/26/20 at 09:05; Status DC Azithromycin 250 ml @ 250 mls/hr 1X ONCE IV Last administered on 01/21/20at 18:25; Start 01/21/20 at 18:15; Stop 01/21/20 at 19:14; Status DC Dexamethasone Sodium Phosphate (Decadron) 6 mg DAILY IVP Last administered on 02/06/20at 09:17; Start 01/22/20 at 09:00; Stop 02/06/20 at 14:50; Status DC Ceftriaxone Sodium (Rocephin) 1 gm Q24H IVP Last administered on 01/29/20at 20:14; Start 01/22/20 at 20:00; Stop 01/30/20 at 16:07; Status DC Azithromycin 250 ml @ 250 mls/hr 1X ONCE IV ; Start 01/21/20 at 19:45; Stop 01/21/20 at 20:44; Status UNV Acetaminophen (Tylenol) 650 mg PRN Q6HRS PRN PO Headaches, Temp > 101.5' Last administered on 02/16/20at 10:06; Start 01/21/20 at 19:45 Ondansetron HCl (Zofran) 4 mg PRN Q6HRS PRN IVP NAUSEA/VOMITING; Start 01/21/20 at 19:45 Al Hydroxide/Mg Hydroxide (Mylanta Plus Xs) 30 ml PRN Q3HRS PRN PO HEARTBURN / GAS; Start 01/21/20 at 19:45 Famotidine (Pepcid) 20 mg BID PO Last administered on 02/05/20at 07:56; Start 01/21/20 at 21:00; Stop 02/05/20 at 20:05; Status DC Enoxaparin Sodium (Lovenox 40mg Syringe) 40 mg Q24H SQ Last administered on 01/21/20at 21:07; Start 01/21/20 at 20:00; Stop 01/22/20 at 10:45; Status DC Sodium Chloride (Normal Saline Flush) 3 ml QSHIFT PRN IV AFTER MEDS AND BLOOD DRAWS; Start 01/21/20 at 19:45 Senna/Docusate Sodium (Senna Plus) 1 tab BID PO Last administered on 02/17/20at 09:42; Start 01/21/20 at 21:00 Magnesium Hydroxide (Milk Of Magnesia) 2,400 mg PRN Q12HR PRN PO CONSTIPATION; Start 01/21/20 at 19:45 Sterile Water (WATER for RESP) 1,000 ml CONT PRN INH VIA VAPOTHERM DEVICE Last administered on 01/23/20at 12:46; Start 01/22/20 at 04:30; Stop 02/05/20 at 09:43; Status DC Lactobacillus Rhamnosus (Culturelle) 1 cap BID PO Last administered on 02/04/20at 07:15; Start 01/22/20 at 09:00; Stop 02/04/20 at 10:38; Status DC Non-Formulary Medication 1 ea/ Sodium Chloride 210 ml @ 420 mls/hr ONCE ONCE IV Last administered on 01/22/20at 10:44; Start 01/22/20 at 11:00; Stop 01/22/20 at 11:29; Status DC Non-Formulary Medication 1 ea/ Sodium Chloride 230 ml @ 460 mls/hr DAILY IV Last administered on 01/26/20at 09:58; Start 01/23/20 at 09:00; Stop 01/26/20 at 09:29; Status DC Enoxaparin Sodium (Lovenox 40mg Syringe) 40 mg BID SQ Last administered on 01/30/20at 20:39; Start 01/22/20 at 11:00; Stop 01/30/20 at 20:57; Status DC Lorazepam (Ativan Inj) 0.5 mg PRN Q4HRS PRN IVP ANXIETY / AGITATION 1ST CHOICE Last administered on 02/09/20at 02:13; Start 01/23/20 at 21:00; Stop 02/10/20 at 16:09; Status DC Lorazepam (Ativan Inj) 0.05 mg 1X ONCE IVP Last administered on 01/23/20at 21:13; Start 01/23/20 at 21:15; Stop 01/23/20 at 21:31; Status DC Fentanyl Citrate 30 ml @ 0 mls/hr CONT PRN IV SEE PROTOCOL Last administered on 02/01/20at 21:15; Start 01/23/20 at 22:45; Stop 02/02/20 at 02:27; Status DC Propofol 100 ml @ 0 mls/hr CONT PRN IV SEE PROTOCOL Last administered on 02/06/20at 04:59; Start 01/23/20 at 22:45; Stop 02/06/20 at 13:18; Status DC Midazolam HCl 100 ml @ 0 mls/hr CONT PRN IV SEE PROTOCOL Last administered on at 01:57; Start 01/23/20 at 22:45; Stop 02/06/20 at 13:18; Status DC Vecuronium [place] (Norcuron Bolus) 10 mg STK-MED ONCE IV ; Start 01/23/20 at 23:24; Stop 01/23/20 at 23:25; Status DC Vecuronium [place] (Norcuron Bolus) 60 mg 1X ONCE IV Last administered on 01/23/20at 23:30; Start 01/23/20 at 23:30; Stop 01/23/20 at 23:35; Status DC Norepinephrine Bitartrate 8 mg/ Dextrose 258 ml @ 20.666 mls/ hr CONT PRN IV PER PROTOCOL Last administered on 01/24/20at 12:28; Start 01/24/20 at 02:15; Stop 02/09/20 at 09:50; Status DC Vecuronium [place] (Norcuron Bolus) 6 mg PRN Q4HRS PRN IV SEDATION Last administered on 01/24/20at 15:40; Start 01/24/20 at 04:30; Stop 02/06/20 at 19:06; Status DC Succinylcholine Chloride (Anectine) 200 mg STK-MED ONCE .ROUTE ; Start 01/23/20 at 23:00; Stop 01/24/20 at 08:24; Status DC Etomidate (Amidate) 20 mg STK-MED ONCE IV ; Start 01/23/20 at 23:00; Stop 01/24/20 at 08:24; Status DC Ringer's Solution 1,000 ml @ 75 mls/hr [id number] IV Last administered on 01/25/20at 16:21; Start 01/24/20 at 12:30; Stop 01/26/20 at 09:17; Status DC Hydralazine HCl (Apresoline Inj) 10 mg PRN Q4HRS PRN IVP ELEVATED BP, SEE COMMENTS; Start 01/28/20 at 14:00 Heparin Sodium/ Dextrose 250 ml @ 17.6 mls/hr CONT PRN IV PER PROTOCOL Last administered on 02/05/20at 01:58; Start 01/30/20 at 21:00; Stop 02/05/20 at 20:07; Status DC Heparin Sodium (Porcine) (Heparin Sodium) 3,300 unit PRN Q6HRS PRN IV FOR UFH LEVEL LESS THAN 0.2; Start 01/30/20 at 21:00; Stop 02/06/20 at 16:22; Status DC Heparin Sodium (Porcine) (Heparin Sodium) 1,650 unit PRN Q6HRS PRN IV FOR UFH LEVEL 0.2 - 0.29 Last administered on 02/04/20at 15:13; Start 01/30/20 at 21:00; Stop 02/06/20 at 16:23; Status DC Heparin Sodium (Porcine) (Heparin Sodium) 8,700 unit 1X ONCE IV Last administered on 01/31/20at 08:20; Start 01/31/20 at 07:15; Stop 01/31/20 at 07:16; Status DC Fentanyl Citrate 55 ml @ 0 mls/hr CONT PRN PRN IV PAIN/SEDATION Last administered on 02/05/20at 02:06; Start 02/02/20 at 02:30; Stop 02/06/20 at 19:06; Status DC Nystatin (Nystatin Oral Susp) 5 ml BID SWSW Last administered on 02/17/20at 09:42; Start 02/02/20 at 09:00 Furosemide (Lasix) 40 mg 1X ONCE IVP Last administered on 02/04/20at 17:12; Start 02/04/20 at 16:00; Stop 02/04/20 at 16:01; Status DC Dexmedetomidine HCl 400 mcg/ Sodium Chloride 100 ml @ 0 mls/hr CONT PRN IV SEE COMMENTS Last administered on 02/06/20at 09:08; Start 02/05/20 at 07:30; Stop 02/09/20 at 09:49; Status DC Sodium Chloride 500 ml @ 500 mls/hr 1X PRN PRN IV ANXIETY / AGITATION; Start 02/05/20 at 07:30; Stop 02/10/20 at 11:01; Status DC Atropine Sulfate (ATROPINE 0.5mg SYRINGE) 0.5 mg PRN Q5MIN PRN IV SEE COMMENTS; Start 02/05/20 at 07:30 Info (Anti-Coagulation Monitoring By Pharmacy) 1 each PRN DAILY PRN MC SEE COMMENTS Last administered on 02/10/20at 15:26; Start 02/05/20 at 07:45; Stop 02/10/20 at 16:09; Status DC Famotidine (Pepcid Vial) 40 mg BID IVP Last administered on 02/13/20at 08:22; Start 02/05/20 at 21:00; Stop 02/13/20 at 10:05; Status DC Haloperidol Lactate (Haldol Inj) 5 mg PRN Q6HRS PRN IVP AGITATION (2ND CHOICE); Start 02/06/20 at 15:00; Stop 02/10/20 at 16:09; Status DC Methylprednisolone Sodium Succinate (SOLU-Medrol 40MG VIAL) 40 mg Q12HR IV Last administered on 02/10/20at 10:31; Start 02/06/20 at 21:00; Stop 02/10/20 at 16:09; Status DC Diphenhydramine HCl (Benadryl) 50 mg 1X ONCE IVP Last administered on 02/06/20at 18:42; Start 02/06/20 at 18:45; Stop 02/06/20 at 18:46; Status DC Sodium Chloride 1,000 ml @ 50 mls/hr 1X ONCE IV Last administered on 02/07/20at 10:15; Start 02/07/20 at 10:15; Stop 02/08/20 at 06:14; Status DC Heparin Sodium/ Dextrose 250 ml @ 15.776 mls/ hr CONT PRN IV PER PROTOCOL Last administered on 02/09/20at 20:36; Start 02/07/20 at 14:30; Stop 02/10/20 at 16:09; Status DC Heparin Sodium (Porcine) (Heparin Sodium) 2,950 unit PRN Q6HRS PRN IV FOR UFH LEVEL LESS THAN 0.2; Start 02/07/20 at 14:30; Stop 02/10/20 at 16:09; Status DC Heparin Sodium (Porcine) (Heparin Sodium) 1,500 unit PRN Q6HRS PRN IV FOR UFH LEVEL 0.2 - 0.29; Start 02/07/20 at 14:30; Stop 02/10/20 at 16:09; Status DC Bisacodyl (Dulcolax Supp) 10 mg 1X ONCE RI ; Start 02/10/20 at 10:15; Stop 02/10/20 at 10:16; Status DC Dextrose/Sodium Chloride 1,000 ml @ 75 mls/hr [id number] IV Last administered on 02/17/20 05:58; Start 02/10/20 at 14:00; Stop 02/17/20 at 12:28; Status DC Methylprednisolone Sodium Succinate (SOLU-Medrol 40MG VIAL) 40 mg DAILY IV Last administered on 02/13/20 08:21; Start 02/11/20 at 09:00; Stop 02/13/20 at 17:14; Status DC Enoxaparin Sodium (Lovenox 40mg Syringe) 40 mg Q12HR SQ Last administered on 02/17/20 09:42; Start 02/10/20 at 21:00 Famotidine (Pepcid) 20 mg QHS PO Last administered on 02/16/20 21:28; Start 02/13/20 at 21:00 Ascorbic Acid (Vitamin C) 500 mg DAILY PO Last administered on 02/17/20 09:42; Start 02/13/20 at 17:00 Thiamine Mononitrate (Vitamin B-1) 100 mg DAILY PO Last administered on 02/17/20 09:42; Start 02/13/20 at 17:00 Fluticasone Propionate (Flonase) 2 spray DAILY NS Last administered on 02/17/20 09:41; Start 02/15/20 at 09:00 Active Scripts Active Keflex (Cephalexin) 500 Mg Capsule 500 Mg PO QID 10 Days [place] 5-325 Tablet (Acetaminophen/Hydrocodone Bitart) 1 Each Tablet 1 Tab PO PRN Q6HRS PRN Vitals/I & O Vital Sign - Last 24 Hours 02/16/20 02/16/20 02/16/20 02/17/20 19:00 19:55 23:00 03:00 Temp 98.1 97.0 98.0 98.1 97.0 98.0 Pulse 74 74 74 Resp 23 23 22 B/P (MAP) 104/58 (73) 116/56 (76) 138/82 (100) Pulse Ox 92 95 95 O2 Delivery Nasal Cannula Nasal Cannula Room Air Room Air O2 Flow Rate 2.5 3.0 02/17/20 02/17/20 02/17/20 07:30 08:00 11:30 Temp 96.3 96.3 Pulse 106 97 Resp 18 18 B/P (MAP) 134/76 (95) 137/75 (95) Pulse Ox 89 93 O2 Delivery Nasal Cannula Nasal Cannula Nasal Cannula O2 Flow Rate 5.0 5.0 6.0 Intake and Output 02/16/20 02/16/20 02/17/20 15:00 23:00 07:00 Intake Total 650 ml 300 ml Output Total 500 ml 0 ml Balance 650 ml -200 ml 0 ml Justicifation of Admission Dx: Justifications for Admission: Justification of Admission Dx: Yes Respiratory Failure: Severe Resp Distress ANA ROBERT MD Feb 17, 2020 15:16
--- NOTE | 2020-02-17 16:31 | NUR ---
SW following. Spoke with RN and reviewed chart. Coordinated care with Natalya from PT. Pt improving some and may not need acute rehab at discharge. Pt remains on . SW contacted family to see about ability to pay for 02 privately as pt remains self-pay. SW to continue following.
[2020-02-17 19:45] VITALS: BP 148/73
[2020-02-17] MEDS: FAMOTIDINE 20 MG TABLET. PO SCH (21:42)
[2020-02-17 23:00] VITALS: BP 129/63
[2020-02-18 03:55] VITALS: BP 130/60
[2020-02-18 07:45] VITALS: BP 125/67
--- NOTE | 2020-02-18 08:22 | PDOC ---
PROGRESS NOTES Chief Complaint Chief Complaint Oropharyngeal Dysphagiaimproved Critical care myopathyimproved Acute Hypoxic Respiratory Failure Secondary to COVID-19 and sepsis pneumonia multifocal pulmonary infiltrates.// follow-up to resolution. Morbid Obesity, BMI 44 HTN NORMOCYTIC ANEMIA severe protein-caloric malnutrition Critical care myopathy Continue with speech recommendations for regular diet and thickened liquids Continue PT OT who recommends acute rehab Appreciate pulmonary recommendations Continue with daily Solu-Medrol Continue with full dose Lovenox Titrate O2 therapy with goal of 88-92% Lovenox for DVT prophylaxis Regular diet Full code Discussed with RN and SW Dispo pending rehab vs home placement. Patient likely may be able to discharge home without any rehab or home O2 requirements. The patient was evaluated during the global COVID-19 pandemic, and that diagnosis was suspected/considered upon their initial presentation. Their evaluation, treatment and testing was consistent with current guidelines for patients who present with complaints or symptoms that may be related to COVID- 19. History of Present Illness History of Present Illness Ms Hackett is a 44-year-old female, who had been having fever and shortness of breath for about a week or so. The patient had outpatient COVID-19 done through [facility] on 01/13/2020 and was informed of positive results on 01/14/2020, which was positive and because of more shortness of breath, she decided to come in. The patient is requiring significant oxygen support. The patient denies any nausea, vomiting or diarrhea. Denies any other complaints other than shortness of breath. 01/31: very awake ealier on 10 versed, and IV fent, doing well on vent, discussed with RT, going down no Fi02 to 65% 02/01: weaning PEEP and oxygen a little, doing a little better, cont current 02/02: weaning slowly, no event, improving slowly 02/04: Still on vent, awake, trying to self extubate. D/w pulm to stay on vent, BiPAP. WBC 16.7 02/05: WBC down to 14.2, afebrile heart rate in 40s comfortable on vent overnight. When sedation was weaned she almost self extubated. ABG 7. 50/39/66 on 50% FiO2 PEEP of 5. 7/10: Extubated without event 02/10: Patient is doing better today. Still needs 6 to 7 L of O2 and saturating 90%. She did have one large bowel movement. Still pending speech evaluation. PT OT is working with the patient now. 02/11: Requiring 7 L nasal cannula O2. She is saturating 100%. Discussed with RN to titrate down on O2. Speech evaluated and patient is able to tolerate regular diet with thickened liquids. Patient is working well with PT OT. 02/13: Saturating 91% on 5 L nasal cannula. She is sitting up in bed and appears to have more energy compared to yesterday. She has been working with physical therapy 02/14: Saturating 95 to 97% on 5 L nasal cannula. She has more energy than yesterday and still on IV steroids. Patient is progressively improving each day. 02/15: Saturating 97% on 4 L nasal cannula. Patient continues to significantly improve 02/16: Afebrile, O2 sats 95% on 5 L nasal cannula. Seen on commode. She still having difficulty getting a deep breath, tries but she can't. Says she feels "mass mejor". Afebrile. O2 saturation 94% on 6 L nasal cannula. States she is feeling better today. However she has conversational dyspnea and difficulty getting a deep breath. COVID-19 CRITERIA: The patient was evaluated during the global COVID-19 pandemic, and that diagnosis was suspected/considered upon their initial presentation. Their evaluation, treatment and testing was consistent with current guidelines for patients who present with complaints or symptoms that may be related to COVID-19. Vitals Vitals Vital Signs Date Time Temp Pulse Resp B/P (MAP) Pulse Ox O2 Delivery O2 Flow Rate FiO2 02/18/20 03:55 98.4 61 20 130/60 (83) 96 Nasal Cannula 6.0 98.4 Physical Exam Physical Exam GENERAL: Patient is alert and awake. NAD HEENT: Moist mucous membranes. No scleral icterus or obvious cervical lymphadenopathy CV: RRR. No murmurs rubs or gallops. Unable to appreciate S3 or S4 PULM: Bilaterally clear to auscultation. Chest expanding equally bilaterally without use of accessory muscles. Patient is able to expel good effort and cough ABD: Soft and nondistended on visualization and palpation. Normoactive bowel sounds heard. EXTREMITIES: No pedal edema seen. No warmth or tenderness upon touch. NEURO: Full ROM in all extremities. Patient has 3 out of 5 strength General: Other Heart: Regular rate Abdomen: Other Extremities: No cyanosis Skin: No breakdown Assessment and Plan Assessmemt and Plan Problems Medical Problems: (1) Pneumonia due to COVID-19 virus Status: Acute Comment Review of Relevant I have reviewed the following items stephon (where applicable) has been applied. Labs Laboratory Tests Test 02/17/20 05:00 White Blood Count 6.3 x10^3/uL (4.0-11.0) Red Blood Count 3.45 x10^6/uL (3.50-5.40) Hemoglobin 10.2 g/dL (12.0-15.5) Hematocrit 30.1 % (36.0-47.0) Mean Corpuscular Volume 87 fL (79-100) Mean Corpuscular Hemoglobin 30 pg (25-35) Mean Corpuscular Hemoglobin Concent 34 g/dL (31-37) Red Cell Distribution Width 18.8 % (11.5-14.5) Platelet Count 194 x10^3/uL (140-400) Neutrophils (%) (Auto) 64 % (31-73) Lymphocytes (%) (Auto) 19 % (24-48) Monocytes (%) (Auto) 7 % (0-9) Eosinophils (%) (Auto) 10 % (0-3) Basophils (%) (Auto) 1 % (0-3) Neutrophils # (Auto) 4.0 x10^3/uL (1.8-7.7) Lymphocytes # (Auto) 1.2 x10^3/uL (1.0-4.8) Monocytes # (Auto) 0.4 x10^3/uL (0.0-1.1) Eosinophils # (Auto) 0.6 x10^3/uL (0.0-0.7) Basophils # (Auto) 0.0 x10^3/uL (0.0-0.2) Sodium Level 144 mmol/L (136-145) Potassium Level 3.7 mmol/L (3.5-5.1) Chloride Level 108 mmol/L (98-107) Carbon Dioxide Level 31 mmol/L (21-32) Anion Gap 5 (6-14) Blood Urea Nitrogen 7 mg/dL (7-20) Creatinine 0.5 mg/dL (0.6-1.0) Estimated GFR (Cockcroft-Gault) 134.0 Glucose Level 94 mg/dL (70-99) Calcium Level 7.9 mg/dL (8.5-10.1) Phosphorus Level 4.3 mg/dL (2.6-4.7) Magnesium Level 2.1 mg/dL (1.8-2.4) Medications Current Medications Acetaminophen (Tylenol) 1,000 mg 1X ONCE PO Last administered on 01/21/20at 17:00; Start 01/21/20 at 17:00; Stop 01/21/20 at 17:01; Status DC Ondansetron HCl (Zofran) 4 mg PRN Q8HRS PRN IV NAUSEA/VOMITING; Start 01/21/20 at 18:00; Stop 01/22/20 at 07:55; Status DC Dexamethasone Sodium Phosphate (Decadron) 6 mg 1X ONCE IVP Last administered on 01/21/20at 18:14; Start 01/21/20 at 18:00; Stop 01/21/20 at 18:01; Status DC Ceftriaxone Sodium (Rocephin) 1 gm 1X ONCE IVP Last administered on 01/21/20at 18:14; Start 01/21/20 at 18:00; Stop 01/21/20 at 18:01; Status DC Azithromycin 500 mg/Sodium Chloride 250 ml @ 250 mls/hr Q24H IV Last administered on 01/25/20at 19:00; Start 01/22/20 at 19:00; Stop 01/26/20 at 09:05; Status DC Azithromycin 250 ml @ 250 mls/hr 1X ONCE IV Last administered on 01/21/20at 18:25; Start 01/21/20 at 18:15; Stop 01/21/20 at 19:14; Status DC Dexamethasone Sodium Phosphate (Decadron) 6 mg DAILY IVP Last administered on 02/06/20at 09:17; Start 01/22/20 at 09:00; Stop 02/06/20 at 14:50; Status DC Ceftriaxone Sodium (Rocephin) 1 gm Q24H IVP Last administered on 01/29/20at 20:14; Start 01/22/20 at 20:00; Stop 01/30/20 at 16:07; Status DC Azithromycin 250 ml @ 250 mls/hr 1X ONCE IV ; Start 01/21/20 at 19:45; Stop 01/21/20 at 20:44; Status UNV Acetaminophen (Tylenol) 650 mg PRN Q6HRS PRN PO Headaches, Temp > 101.5' Last administered on 02/16/20at 10:06; Start 01/21/20 at 19:45 Ondansetron HCl (Zofran) 4 mg PRN Q6HRS PRN IVP NAUSEA/VOMITING; Start 01/21/20 at 19:45 Al Hydroxide/Mg Hydroxide (Mylanta Plus Xs) 30 ml PRN Q3HRS PRN PO HEARTBURN / GAS; Start 01/21/20 at 19:45 Famotidine (Pepcid) 20 mg BID PO Last administered on 02/05/20at 07:56; Start 01/21/20 at 21:00; Stop 02/05/20 at 20:05; Status DC Enoxaparin Sodium (Lovenox 40mg Syringe) 40 mg Q24H SQ Last administered on 01/21/20at 21:07; Start 01/21/20 at 20:00; Stop 01/22/20 at 10:45; Status DC Sodium Chloride (Normal Saline Flush) 3 ml QSHIFT PRN IV AFTER MEDS AND BLOOD DRAWS; Start 01/21/20 at 19:45 Senna/Docusate Sodium (Senna Plus) 1 tab BID PO Last administered on 02/17/20at 21:42; Start 01/21/20 at 21:00 Magnesium Hydroxide (Milk Of Magnesia) 2,400 mg PRN Q12HR PRN PO CONSTIPATION; Start 01/21/20 at 19:45 Sterile Water (WATER for RESP) 1,000 ml CONT PRN INH VIA VAPOTHERM DEVICE Last administered on 01/23/20at 12:46; Start 01/22/20 at 04:30; Stop 02/05/20 at 09:43; Status DC Lactobacillus Rhamnosus (Culturelle) 1 cap BID PO Last administered on 02/04/20at 07:15; Start 01/22/20 at 09:00; Stop 02/04/20 at 10:38; Status DC Non-Formulary Medication 1 ea/ Sodium Chloride 210 ml @ 420 mls/hr ONCE ONCE IV Last administered on 01/22/20at 10:44; Start 01/22/20 at 11:00; Stop 01/22/20 at 11:29; Status DC Non-Formulary Medication 1 ea/ Sodium Chloride 230 ml @ 460 mls/hr DAILY IV Last administered on 01/26/20at 09:58; Start 01/23/20 at 09:00; Stop 01/26/20 at 09:29; Status DC Enoxaparin Sodium (Lovenox 40mg Syringe) 40 mg BID SQ Last administered on 01/30/20at 20:39; Start 01/22/20 at 11:00; Stop 01/30/20 at 20:57; Status DC Lorazepam (Ativan Inj) 0.5 mg PRN Q4HRS PRN IVP ANXIETY / AGITATION 1ST CHOICE Last administered on 02/09/20at 02:13; Start 01/23/20 at 21:00; Stop 02/10/20 at 16:09; Status DC Lorazepam (Ativan Inj) 0.05 mg 1X ONCE IVP Last administered on 01/23/20at 21:13; Start 01/23/20 at 21:15; Stop 01/23/20 at 21:31; Status DC Fentanyl Citrate 30 ml @ 0 mls/hr CONT PRN IV SEE PROTOCOL Last administered on 02/01/20at 21:15; Start 01/23/20 at 22:45; Stop 02/02/20 at 02:27; Status DC Propofol 100 ml @ 0 mls/hr CONT PRN IV SEE PROTOCOL Last administered on 02/06/20at 04:59; Start 01/23/20 at 22:45; Stop 02/06/20 at 13:18; Status DC Midazolam HCl 100 ml @ 0 mls/hr CONT PRN IV SEE PROTOCOL Last administered on 02/04/20at 01:57; Start 01/23/20 at 22:45; Stop 02/06/20 at 13:18; Status DC Vecuronium [place] (Norcuron Bolus) 10 mg STK-MED ONCE IV ; Start 01/23/20 at 23:24; Stop 01/23/20 at 23:25; Status DC Vecuronium [place] (Norcuron Bolus) 60 mg 1X ONCE IV Last administered on 01/23/20at 23:30; Start 01/23/20 at 23:30; Stop 01/23/20 at 23:35; Status DC Norepinephrine Bitartrate 8 mg/ Dextrose 258 ml @ 20.666 mls/ hr CONT PRN IV PER PROTOCOL Last administered on 01/24/20at 12:28; Start 01/24/20 at 02:15; Stop 02/09/20 at 09:50; Status DC Vecuronium [place] (Norcuron Bolus) 6 mg PRN Q4HRS PRN IV SEDATION Last administered on 01/24/20at 15:40; Start 01/24/20 at 04:30; Stop 02/06/20 at 19:06; Status DC Succinylcholine Chloride (Anectine) 200 mg STK-MED ONCE .ROUTE ; Start 01/23/20 at 23:00; Stop 01/24/20 at 08:24; Status DC Etomidate (Amidate) 20 mg STK-MED ONCE IV ; Start 01/23/20 at 23:00; Stop 01/24/20 at 08:24; Status DC Ringer's Solution 1,000 ml @ 75 mls/hr [id number] IV Last administered on 01/25/20at 16:21; Start 01/24/20 at 12:30; Stop 01/26/20 at 09:17; Status DC Hydralazine HCl (Apresoline Inj) 10 mg PRN Q4HRS PRN IVP ELEVATED BP, SEE COMMENTS; Start 01/28/20 at 14:00 Heparin Sodium/ Dextrose 250 ml @ 17.6 mls/hr CONT PRN IV PER PROTOCOL Last administered on 02/05/20at 01:58; Start 01/30/20 at 21:00; Stop 02/05/20 at 20:07; Status DC Heparin Sodium (Porcine) (Heparin Sodium) 3,300 unit PRN Q6HRS PRN IV FOR UFH LEVEL LESS THAN 0.2; Start 01/30/20 at 21:00; Stop 02/06/20 at 16:22; Status DC Heparin Sodium (Porcine) (Heparin Sodium) 1,650 unit PRN Q6HRS PRN IV FOR UFH LEVEL 0.2 - 0.29 Last administered on 02/04/20at 15:13; Start 01/30/20 at 21:00; Stop 02/06/20 at 16:23; Status DC Heparin Sodium (Porcine) (Heparin Sodium) 8,700 unit 1X ONCE IV Last administered on 01/31/20at 08:20; Start 01/31/20 at 07:15; Stop 01/31/20 at 07:16; Status DC Fentanyl Citrate 55 ml @ 0 mls/hr CONT PRN PRN IV PAIN/SEDATION Last administered on 02/05/20at 02:06; Start 02/02/20 at 02:30; Stop 02/06/20 at 19:06; Status DC Nystatin (Nystatin Oral Susp) 5 ml BID SWSW Last administered on 02/17/20at 21:44; Start 02/02/20 at 09:00 Furosemide (Lasix) 40 mg 1X ONCE IVP Last administered on 02/04/20at 17:12; Start 02/04/20 at 16:00; Stop 02/04/20 at 16:01; Status DC Dexmedetomidine HCl 400 mcg/ Sodium Chloride 100 ml @ 0 mls/hr CONT PRN IV SEE COMMENTS Last administered on 02/06/20at 09:08; Start 02/05/20 at 07:30; Stop 02/09/20 at 09:49; Status DC Sodium Chloride 500 ml @ 500 mls/hr 1X PRN PRN IV ANXIETY / AGITATION; Start 02/05/20 at 07:30; Stop 02/10/20 at 11:01; Status DC Atropine Sulfate (ATROPINE 0.5mg SYRINGE) 0.5 mg PRN Q5MIN PRN IV SEE COMMENTS; Start 02/05/20 at 07:30 Info (Anti-Coagulation Monitoring By Pharmacy) 1 each PRN DAILY PRN MC SEE COMMENTS Last administered on 02/10/20at 15:26; Start 02/05/20 at 07:45; Stop 02/10/20 at 16:09; Status DC Famotidine (Pepcid Vial) 40 mg BID IVP Last administered on 02/13/20at 08:22; Start 02/05/20 at 21:00; Stop 02/13/20 at 10:05; Status DC Haloperidol Lactate (Haldol Inj) 5 mg PRN Q6HRS PRN IVP AGITATION (2ND CHOICE); Start 02/06/20 at 15:00; Stop 02/10/20 at 16:09; Status DC Methylprednisolone Sodium Succinate (SOLU-Medrol 40MG VIAL) 40 mg Q12HR IV Last administered on 02/10/20at 10:31; Start 02/06/20 at 21:00; Stop 02/10/20 at 16:09; Status DC Diphenhydramine HCl (Benadryl) 50 mg 1X ONCE IVP Last administered on 02/06/20at 18:42; Start 02/06/20 at 18:45; Stop 02/06/20 at 18:46; Status DC Sodium Chloride 1,000 ml @ 50 mls/hr 1X ONCE IV Last administered on 02/07/20at 10:15; Start 02/07/20 at 10:15; Stop 02/08/20 at 06:14; Status DC Heparin Sodium/ Dextrose 250 ml @ 15.776 mls/ hr CONT PRN IV PER PROTOCOL Last administered on 02/09/20at 20:36; Start 02/07/20 at 14:30; Stop 02/10/20 at 16:09; Status DC Heparin Sodium (Porcine) (Heparin Sodium) 2,950 unit PRN Q6HRS PRN IV FOR UFH LEVEL LESS THAN 0.2; Start 02/07/20 at 14:30; Stop 02/10/20 at 16:09; Status DC Heparin Sodium (Porcine) (Heparin Sodium) 1,500 unit PRN Q6HRS PRN IV FOR UFH LEVEL 0.2 - 0.29; Start 02/07/20 at 14:30; Stop 02/10/20 at 16:09; Status DC Bisacodyl (Dulcolax Supp) 10 mg 1X ONCE [place] ; Start 02/10/20 at 10:15; Stop 02/10/20 at 10:16; Status DC Dextrose/Sodium Chloride 1,000 ml @ 75 mls/hr [id number] IV Last administered on 02/17/20at 05:58; Start 02/10/20 at 14:00; Stop 02/17/20 at 12:28; Status DC Methylprednisolone Sodium Succinate (SOLU-Medrol 40MG VIAL) 40 mg DAILY IV Last administered on 02/13/20at 08:21; Start 02/11/20 at 09:00; Stop 02/13/20 at 17:14; Status DC Enoxaparin Sodium (Lovenox 40mg Syringe) 40 mg Q12HR SQ Last administered on 02/17/20at 21:42; Start 02/10/20 at 21:00 Famotidine (Pepcid) 20 mg QHS PO Last administered on 02/17/20at 21:42; Start 02/13/20 at 21:00 Ascorbic Acid (Vitamin C) 500 mg DAILY PO Last administered on 02/17/20 09:42; Start 02/13/20 at 17:00 Thiamine Mononitrate (Vitamin B-1) 100 mg DAILY PO Last administered on 02/17/20 09:42; Start 02/13/20 at 17:00 Fluticasone Propionate (Flonase) 2 spray DAILY NS Last administered on 02/17/20at 09:41; Start 02/15/20 at 09:00 Active Scripts Active Keflex (Cephalexin) 500 Mg Capsule 500 Mg PO QID 10 Days [place] 5-325 Tablet (Acetaminophen/Hydrocodone Bitart) 1 Each Tablet 1 Tab PO PRN Q6HRS PRN Vitals/I & O Vital Sign - Last 24 Hours 02/17/20 02/17/20 02/17/20 02/17/20 11:30 19:45 20:00 23:00 Temp 96.3 98.6 98.6 96.3 98.6 98.6 Pulse 97 92 75 Resp 18 20 20 B/P (MAP) 137/75 (95) 148/73 (98) 129/63 (85) Pulse Ox 93 92 96 O2 Delivery Nasal Cannula Nasal Cannula Nasal Cannula Nasal Cannula O2 Flow Rate 6.0 6.0 5.0 6.0 02/18/20 03:55 Temp 98.4 98.4 Pulse 61 Resp 20 B/P (MAP) 130/60 (83) Pulse Ox 96 O2 Delivery Nasal Cannula O2 Flow Rate 6.0 Intake and Output 02/17/20 02/17/20 02/18/20 15:00 23:00 07:00 Intake Total 240 ml 200 ml Balance 240 ml 200 ml Justicifation of Admission Dx: Justifications for Admission: Justification of Admission Dx: Yes Respiratory Failure: Severe Resp Distress THA NOBLE MD Feb 18, 2020 08:21
[2020-02-18] MEDS: SENNOSIDES/DOCUSATE 8.6/50MG TABLET. PO SCH ×2 (09:00→21:01)
[2020-02-18] MEDS: NYSTATIN 100,000 UNITS/ML 5 ML ORAL.SUSP. SWSW SCH ×2 (09:48→21:00)
[2020-02-18] MEDS: THIAMINE 100 MG TABLET. PO SCH (09:48)
[2020-02-18] MEDS: ASCORBIC ACID 500 MG TABLET PO SCH (09:48)
[2020-02-18] MEDS: ENOXAPARIN 40 MG/0.4 ML SYRINGE. SQ SCH ×2 (10:08→21:01)
[2020-02-18] MEDS: FLUTICASONE 50MCG/NASAL SPRAY 16GM BOTTLE. NS SCH (10:08)
[2020-02-18 11:45] VITALS: BP 126/66
[2020-02-18 15:18] VITALS: BP 132/54
--- NOTE | 2020-02-18 17:16 | NUR ---
SW following. Spoke with RN and reviewed chart. Discharge plan remains home with family when stable. Pt remains on . to continue following.
[2020-02-18 19:35] VITALS: BP 122/56
[2020-02-18] MEDS: FAMOTIDINE 20 MG TABLET. PO SCH (21:01)
[2020-02-18 23:49] VITALS: BP 138/69
[2020-02-19 03:45] VITALS: BP 129/65
[2020-02-19 07:15] VITALS: BP 131/64
[2020-02-19] MEDS: ENOXAPARIN 40 MG/0.4 ML SYRINGE. SQ SCH ×2 (08:43→21:24)
[2020-02-19] MEDS: FLUTICASONE 50MCG/NASAL SPRAY 16GM BOTTLE. NS SCH (08:43)
[2020-02-19] MEDS: SENNOSIDES/DOCUSATE 8.6/50MG TABLET. PO SCH ×2 (08:43→21:23)
[2020-02-19] MEDS: THIAMINE 100 MG TABLET. PO SCH (08:43)
[2020-02-19] MEDS: ASCORBIC ACID 500 MG TABLET PO SCH (08:43)
[2020-02-19] MEDS: NYSTATIN 100,000 UNITS/ML 5 ML ORAL.SUSP. SWSW SCH ×2 (08:44→21:24)
--- NOTE | 2020-02-19 09:05 | PDOC ---
PROGRESS NOTES Chief Complaint Chief Complaint Oropharyngeal Dysphagiaimproved Critical care myopathyimproved Acute Hypoxic Respiratory Failure Secondary to COVID-19 and sepsis pneumonia multifocal pulmonary infiltrates.// follow-up to resolution. Morbid Obesity, BMI 44 HTN NORMOCYTIC ANEMIA severe protein-caloric malnutrition Critical care myopathy Continue with speech recommendations for regular diet and thickened liquids Continue PT OT who recommends acute rehab Appreciate pulmonary recommendations Continue with daily Solu-Medrol Continue with full dose Lovenox Titrate O2 therapy with goal of 88-92% Lovenox for DVT prophylaxis Regular diet Full code Discussed with RN and SW Dispo pending rehab vs home placement. Patient likely may be able to discharge home without any rehab or home O2 requirements. The patient was evaluated during the global COVID-19 pandemic, and that diagnosis was suspected/considered upon their initial presentation. Their evaluation, treatment and testing was consistent with current guidelines for patients who present with complaints or symptoms that may be related to COVID- 19. History of Present Illness History of Present Illness Ms Hackett is a 44-year-old female, who had been having fever and shortness of breath for about a week or so. The patient had outpatient COVID-19 done through [facility] on 01/13/2020 and was informed of positive results on 01/14/2020, which was positive and because of more shortness of breath, she decided to come in. The patient is requiring significant oxygen support. The patient denies any nausea, vomiting or diarrhea. Denies any other complaints other than shortness of breath. 01/31: very awake ealier on 10 versed, and IV fent, doing well on vent, discussed with RT, going down no Fi02 to 65% 02/01: weaning PEEP and oxygen a little, doing a little better, cont current 02/02: weaning slowly, no event, improving slowly 02/04: Still on vent, awake, trying to self extubate. D/w pulm to stay on vent, BiPAP. WBC 16.7 02/05: WBC down to 14.2, afebrile heart rate in 40s comfortable on vent overnight. When sedation was weaned she almost self extubated. ABG 7. 50/39/66 on 50% FiO2 PEEP of 5. 7/10: Extubated without event 02/10: Patient is doing better today. Still needs 6 to 7 L of O2 and saturating 90%. She did have one large bowel movement. Still pending speech evaluation. PT OT is working with the patient now. 02/11: Requiring 7 L nasal cannula O2. She is saturating 100%. Discussed with RN to titrate down on O2. Speech evaluated and patient is able to tolerate regular diet with thickened liquids. Patient is working well with PT OT. 02/13: Saturating 91% on 5 L nasal cannula. She is sitting up in bed and appears to have more energy compared to yesterday. She has been working with physical therapy 02/14: Saturating 95 to 97% on 5 L nasal cannula. She has more energy than yesterday and still on IV steroids. Patient is progressively improving each day. 02/15: Saturating 97% on 4 L nasal cannula. Patient continues to significantly improve 02/16: Afebrile, O2 sats 95% on 5 L nasal cannula. Seen on commode. She still having difficulty getting a deep breath, tries but she can't. Says she feels "mass mejor". 02/17: Afebrile. O2 saturation 94% on 6 L nasal cannula. States she is feeling better today. However she has conversational dyspnea and difficulty getting a deep breath. Afebrile. O2 saturation 90% on 6 L nasal cannula. She worked with [employer] today and had significant aspirations with thin liquids. She states she feels better is able to work with PT to go to the restroom on her own and able to take 3 steps with standby assistance. Still very weak after that falls back into the chair. On a social note apparently during her extended hospital stay she has been evicted from her apartment. COVID-19 CRITERIA: The patient was evaluated during the global COVID-19 pandemic, and that diagnosis was suspected/considered upon their initial presentation. Their evaluation, treatment and testing was consistent with current guidelines for patients who present with complaints or symptoms that may be related to COVID-19. Vitals Vitals Vital Signs Date Time Temp Pulse Resp B/P (MAP) Pulse Ox O2 Delivery O2 Flow Rate FiO2 02/19/20 07:15 98.3 73 16 131/64 (86) 89 Nasal Cannula 6.0 98.3 Physical Exam Physical Exam GENERAL: Patient is alert and awake. NAD HEENT: Moist mucous membranes. No scleral icterus or obvious cervical lymphadenopathy CV: RRR. No murmurs rubs or gallops. Unable to appreciate S3 or S4 PULM: Bilaterally clear to auscultation. Chest expanding equally bilaterally without use of accessory muscles. Patient is able to expel good effort and cough ABD: Soft and nondistended on visualization and palpation. Normoactive bowel sounds heard. EXTREMITIES: No pedal edema seen. No warmth or tenderness upon touch. NEURO: Full ROM in all extremities. Patient has 3 out of 5 strength General: Other Heart: Regular rate Abdomen: Other Extremities: No cyanosis Skin: No breakdown Assessment and Plan Assessmemt and Plan Problems Medical Problems: (1) Pneumonia due to COVID-19 virus Status: Acute Comment Review of Relevant I have reviewed the following items stephon (where applicable) has been applied. Medications Current Medications Acetaminophen (Tylenol) 1,000 mg 1X ONCE PO Last administered on 01/21/20at 17:00; Start 01/21/20 at 17:00; Stop 01/21/20 at 17:01; Status DC Ondansetron HCl (Zofran) 4 mg PRN Q8HRS PRN IV NAUSEA/VOMITING; Start 01/21/20 at 18:00; Stop 01/22/20 at 07:55; Status DC Dexamethasone Sodium Phosphate (Decadron) 6 mg 1X ONCE IVP Last administered on 01/21/20at 18:14; Start 01/21/20 at 18:00; Stop 01/21/20 at 18:01; Status DC Ceftriaxone Sodium (Rocephin) 1 gm 1X ONCE IVP Last administered on 01/21/20at 18:14; Start 01/21/20 at 18:00; Stop 01/21/20 at 18:01; Status DC Azithromycin 500 mg/Sodium Chloride 250 ml @ 250 mls/hr Q24H IV Last administered on 01/25/20at 19:00; Start 01/22/20 at 19:00; Stop 01/26/20 at 09:05; Status DC Azithromycin 250 ml @ 250 mls/hr 1X ONCE IV Last administered on 01/21/20at 18:25; Start 01/21/20 at 18:15; Stop 01/21/20 at 19:14; Status DC Dexamethasone Sodium Phosphate (Decadron) 6 mg DAILY IVP Last administered on 02/06/20at 09:17; Start 01/22/20 at 09:00; Stop 02/06/20 at 14:50; Status DC Ceftriaxone Sodium (Rocephin) 1 gm Q24H IVP Last administered on 01/29/20at 20:14; Start 01/22/20 at 20:00; Stop 01/30/20 at 16:07; Status DC Azithromycin 250 ml @ 250 mls/hr 1X ONCE IV ; Start 01/21/20 at 19:45; Stop 01/21/20 at 20:44; Status UNV Acetaminophen (Tylenol) 650 mg PRN Q6HRS PRN PO Headaches, Temp > 101.5' Last administered on 02/16/20at 10:06; Start 01/21/20 at 19:45 Ondansetron HCl (Zofran) 4 mg PRN Q6HRS PRN IVP NAUSEA/VOMITING; Start 01/21/20 at 19:45 Al Hydroxide/Mg Hydroxide (Mylanta Plus Xs) 30 ml PRN Q3HRS PRN PO HEARTBURN / GAS; Start 01/21/20 at 19:45 Famotidine (Pepcid) 20 mg BID PO Last administered on 02/05/20at 07:56; Start 01/21/20 at 21:00; Stop 02/05/20 at 20:05; Status DC Enoxaparin Sodium (Lovenox 40mg Syringe) 40 mg Q24H SQ Last administered on 01/21/20at 21:07; Start 01/21/20 at 20:00; Stop 01/22/20 at 10:45; Status DC Sodium Chloride (Normal Saline Flush) 3 ml QSHIFT PRN IV AFTER MEDS AND BLOOD DRAWS; Start 01/21/20 at 19:45 Senna/Docusate Sodium (Senna Plus) 1 tab BID PO Last administered on 02/19/20at 08:43; Start 01/21/20 at 21:00 Magnesium Hydroxide (Milk Of Magnesia) 2,400 mg PRN Q12HR PRN PO CONSTIPATION; Start 01/21/20 at 19:45 Sterile Water (WATER for RESP) 1,000 ml CONT PRN INH VIA VAPOTHERM DEVICE Last administered on 01/23/20at 12:46; Start 01/22/20 at 04:30; Stop 02/05/20 at 09:43; Status DC Lactobacillus Rhamnosus (Culturelle) 1 cap BID PO Last administered on 02/04/20 07:15; Start 01/22/20 at 09:00; Stop 02/04/20 at 10:38; Status DC Non-Formulary Medication 1 ea/ Sodium Chloride 210 ml @ 420 mls/hr ONCE ONCE IV Last administered on 01/22/20at 10:44; Start 01/22/20 at 11:00; Stop 01/22/20 at 11:29; Status DC Non-Formulary Medication 1 ea/ Sodium Chloride 230 ml @ 460 mls/hr DAILY IV Last administered on 01/26/20at 09:58; Start 01/23/20 at 09:00; Stop 01/26/20 at 09:29; Status DC Enoxaparin Sodium (Lovenox 40mg Syringe) 40 mg BID SQ Last administered on 01/30/20at 20:39; Start 01/22/20 at 11:00; Stop 01/30/20 at 20:57; Status DC Lorazepam (Ativan Inj) 0.5 mg PRN Q4HRS PRN IVP ANXIETY / AGITATION 1ST CHOICE Last administered on 02/09/20at 02:13; Start 01/23/20 at 21:00; Stop 02/10/20 at 16:09; Status DC Lorazepam (Ativan Inj) 0.05 mg 1X ONCE IVP Last administered on 01/23/20at 21:13; Start 01/23/20 at 21:15; Stop 01/23/20 at 21:31; Status DC Fentanyl Citrate 30 ml @ 0 mls/hr CONT PRN IV SEE PROTOCOL Last administered on 02/01/20at 21:15; Start 01/23/20 at 22:45; Stop 02/02/20 at 02:27; Status DC Propofol 100 ml @ 0 mls/hr CONT PRN IV SEE PROTOCOL Last administered on 02/06/20at 04:59; Start 01/23/20 at 22:45; Stop 02/06/20 at 13:18; Status DC Midazolam HCl 100 ml @ 0 mls/hr CONT PRN IV SEE PROTOCOL Last administered on 02/04/20 01:57; Start 01/23/20 at 22:45; Stop 02/06/20 at 13:18; Status DC Vecuronium Narvon (Norcuron Bolus) 10 mg STK-MED ONCE IV ; Start 01/23/20 at 23:24; Stop 01/23/20 at 23:25; Status DC Vecuronium Narvon (Norcuron Bolus) 60 mg 1X ONCE IV Last administered on 01/23/20at 23:30; Start 01/23/20 at 23:30; Stop 01/23/20 at 23:35; Status DC Norepinephrine Bitartrate 8 mg/ Dextrose 258 ml @ 20.666 mls/ hr CONT PRN IV PER PROTOCOL Last administered on 01/24/20at 12:28; Start 01/24/20 at 02:15; Stop 02/09/20 at 09:50; Status DC Vecuronium Narvon (Norcuron Bolus) 6 mg PRN Q4HRS PRN IV SEDATION Last a dministered on 01/24/20at 15:40; Start 01/24/20 at 04:30; Stop 02/06/20 at 19:06; Status DC Succinylcholine Chloride (Anectine) 200 mg STK-MED ONCE .ROUTE ; Start 01/23/20 at 23:00; Stop 01/24/20 at 08:24; Status DC Etomidate (Amidate) 20 mg STK-MED ONCE IV ; Start 01/23/20 at 23:00; Stop 01/24/20 at 08:24; Status DC Ringer's Solution 1,000 ml @ 75 mls/hr [id number] IV Last administered on 01/25/20at 16:21; Start 01/24/20 at 12:30; Stop 01/26/20 at 09:17; Status DC Hydralazine HCl (Apresoline Inj) 10 mg PRN Q4HRS PRN IVP ELEVATED BP, SEE COMMENTS; Start 01/28/20 at 14:00 Heparin Sodium/ Dextrose 250 ml @ 17.6 mls/hr CONT PRN IV PER PROTOCOL Last administered on 02/05/20at 01:58; Start 01/30/20 at 21:00; Stop 02/05/20 at 20:07; Status DC Heparin Sodium (Porcine) (Heparin Sodium) 3,300 unit PRN Q6HRS PRN IV FOR UFH LEVEL LESS THAN 0.2; Start 01/30/20 at 21:00; Stop 02/06/20 at 16:22; Status DC Heparin Sodium (Porcine) (Heparin Sodium) 1,650 unit PRN Q6HRS PRN IV FOR UFH LEVEL 0.2 - 0.29 Last administered on 02/04/20at 15:13; Start 01/30/20 at 21:00; Stop 02/06/20 at 16:23; Status DC Heparin Sodium (Porcine) (Heparin Sodium) 8,700 unit 1X ONCE IV Last administered on 01/31/20at 08:20; Start 01/31/20 at 07:15; Stop 01/31/20 at 07:16; Status DC Fentanyl Citrate 55 ml @ 0 mls/hr CONT PRN PRN IV PAIN/SEDATION Last administered on 02/05/20at 02:06; Start 02/02/20 at 02:30; Stop 02/06/20 at 19:06; Status DC Nystatin (Nystatin Oral Susp) 5 ml BID SWSW Last administered on 02/19/20at 08:44; Start 02/02/20 at 09:00 Furosemide (Lasix) 40 mg 1X ONCE IVP Last administered on 02/04/20at 17:12; Start 02/04/20 at 16:00; Stop 02/04/20 at 16:01; Status DC Dexmedetomidine HCl 400 mcg/ Sodium Chloride 100 ml @ 0 mls/hr CONT PRN IV SEE COMMENTS Last administered on 02/06/20at 09:08; Start 02/05/20 at 07:30; Stop 02/09/20 at 09:49; Status DC Sodium Chloride 500 ml @ 500 mls/hr 1X PRN PRN IV ANXIETY / AGITATION; Start 02/05/20 at 07:30; Stop 02/10/20 at 11:01; Status DC Atropine Sulfate (ATROPINE 0.5mg SYRINGE) 0.5 mg PRN Q5MIN PRN IV SEE COMMENTS; Start 02/05/20 at 07:30 Info (Anti-Coagulation Monitoring By Pharmacy) 1 each PRN DAILY PRN MC SEE COMMENTS Last administered on 02/10/20at 15:26; Start 02/05/20 at 07:45; Stop 02/10/20 at 16:09; Status DC Famotidine (Pepcid Vial) 40 mg BID IVP Last administered on 02/13/20at 08:22; Start 02/05/20 at 21:00; Stop 02/13/20 at 10:05; Status DC Haloperidol Lactate (Haldol Inj) 5 mg PRN Q6HRS PRN IVP AGITATION (2ND CHOICE); Start 02/06/20 at 15:00; Stop 02/10/20 at 16:09; Status DC Methylprednisolone Sodium Succinate (SOLU-Medrol 40MG VIAL) 40 mg Q12HR IV Last administered on 02/10/20at 10:31; Start 02/06/20 at 21:00; Stop 02/10/20 at 16:09; Status DC Diphenhydramine HCl (Benadryl) 50 mg 1X ONCE IVP Last administered on 02/06/20at 18:42; Start 02/06/20 at 18:45; Stop 02/06/20 at 18:46; Status DC Sodium Chloride 1,000 ml @ 50 mls/hr 1X ONCE IV Last administered on 02/07/20at 10:15; Start 02/07/20 at 10:15; Stop 02/08/20 at 06:14; Status DC Heparin Sodium/ Dextrose 250 ml @ 15.776 mls/ hr CONT PRN IV PER PROTOCOL Last administered on 02/09/20at 20:36; Start 02/07/20 at 14:30; Stop 02/10/20 at 16:09; Status DC Heparin Sodium (Porcine) (Heparin Sodium) 2,950 unit PRN Q6HRS PRN IV FOR UFH LEVEL LESS THAN 0.2; Start 02/07/20 at 14:30; Stop 02/10/20 at 16:09; Status DC Heparin Sodium (Porcine) (Heparin Sodium) 1,500 unit PRN Q6HRS PRN IV FOR UFH LEVEL 0.2 - 0.29; Start 02/07/20 at 14:30; Stop 02/10/20 at 16:09; Status DC Bisacodyl (Dulcolax Supp) 10 mg 1X ONCE AR ; Start 02/10/20 at 10:15; Stop 02/10/20 at 10:16; Status DC Dextrose/Sodium Chloride 1,000 ml @ 75 mls/hr [id number] IV Last administered on 02/17/20at 05:58; Start 02/10/20 at 14:00; Stop 02/17/20 at 12:28; Status DC Methylprednisolone Sodium Succinate (SOLU-Medrol 40MG VIAL) 40 mg DAILY IV Last administered on 02/13/20 08:21; Start 02/11/20 at 09:00; Stop 02/13/20 at 17:14; Status DC Enoxaparin Sodium (Lovenox 40mg Syringe) 40 mg Q12HR SQ Last administered on 02/19/20at 08:43; Start 02/10/20 at 21:00 Famotidine (Pepcid) 20 mg QHS PO Last administered on 02/18/20at 21:01; Start 02/13/20 at 21:00 Ascorbic Acid (Vitamin C) 500 mg DAILY PO Last administered on 02/19/20 08:43; Start 02/13/20 at 17:00 Thiamine Mononitrate (Vitamin B-1) 100 mg DAILY PO Last administered on 02/19/20 08:43; Start 02/13/20 at 17:00 Fluticasone Propionate (Flonase) 2 spray DAILY NS Last administered on 02/19/20 08:43; Start 02/15/20 at 09:00 Active Scripts Active Keflex (Cephalexin) 500 Mg Capsule 500 Mg PO QID 10 Days Almond 5-325 Tablet (Acetaminophen/Hydrocodone Bitart) 1 Each Tablet 1 Tab PO PRN Q6HRS PRN Vitals/I & O Vital Sign - Last 24 Hours 02/18/20 02/18/20 02/18/20 02/18/20 11:45 15:18 19:35 20:00 Temp 96.9 97.9 97.2 96.9 97.9 97.2 Pulse 94 84 79 Resp 22 B/P (MAP) 126/66 (86) 132/54 (80) 122/56 (78) Pulse Ox 92 94 99 O2 Delivery Nasal Cannula Nasal Cannula Nasal Cannula Nasal Cannula O2 Flow Rate 6.0 6.0 6.0 6.0 02/18/20 02/19/20 02/19/20 23:49 03:45 07:15 Temp 98.6 98.6 98.3 98.6 98.6 98.3 Pulse 85 64 73 Resp 20 16 B/P (MAP) 138/69 (92) 129/65 (86) 131/64 (86) Pulse Ox 91 91 89 O2 Delivery Nasal Cannula Nasal Cannula Nasal Cannula O2 Flow Rate 6.0 6.0 6.0 Intake and Output 02/18/20 02/18/20 02/19/20 15:00 23:00 07:00 Intake Total 480 ml 500 ml 100 ml Balance 480 ml 500 ml 100 ml Justicifation of Admission Dx: Justifications for Admission: Justification of Admission Dx: Yes Respiratory Failure: Severe Resp Distress THA NOBLE MD Feb 19, 2020 09:05
[2020-02-19 11:16] VITALS: BP 130/69
[2020-02-19 15:00] VITALS: BP 132/72
--- NOTE | 2020-02-19 17:35 | NUR ---
SW following. SW reviewed chart and spoke with RN. Pt remains on 6l 02 and is not ready for discharge per Dr. Momin. Discharge plan remains home with family when stable. SW to continue following.
[2020-02-19 20:46] VITALS: BP 116/61
[2020-02-19] MEDS: FAMOTIDINE 20 MG TABLET. PO SCH (21:23)
[2020-02-19 23:34] VITALS: BP 132/70
[2020-02-20 03:00] VITALS: BP 120/63
[2020-02-20 07:16] VITALS: BP 117/66
--- NOTE | 2020-02-20 07:47 | PDOC ---
PROGRESS NOTES Chief Complaint Chief Complaint Oropharyngeal Dysphagiaimproved Critical care myopathyimproved Acute Hypoxic Respiratory Failure Secondary to COVID-19 and sepsis pneumonia multifocal pulmonary infiltrates.// follow-up to resolution. Morbid Obesity, BMI 44 HTN NORMOCYTIC ANEMIA severe protein-caloric malnutrition Critical care myopathy Continue with speech recommendations for regular diet and thickened liquids Continue PT OT who recommends acute rehab Appreciate pulmonary recommendations Continue with daily Solu-Medrol Continue with full dose Lovenox Titrate O2 therapy with goal of 88-92% Lovenox for DVT prophylaxis Regular diet Full code Discussed with RN and SW Dispo pending rehab vs home placement. Patient likely may be able to discharge home without any rehab or home O2 requirements. The patient was evaluated during the global COVID-19 pandemic, and that diagnosis was suspected/considered upon their initial presentation. Their evaluation, treatment and testing was consistent with current guidelines for patients who present with complaints or symptoms that may be related to COVID- 19. History of Present Illness History of Present Illness Ms Hackett is a 44-year-old female, who had been having fever and shortness of breath for about a week or so. The patient had outpatient COVID-19 done through [facility] on 01/13/2020 and was informed of positive results on 01/14/2020, which was positive and because of more shortness of breath, she decided to come in. The patient is requiring significant oxygen support. The patient denies any nausea, vomiting or diarrhea. Denies any other complaints other than shortness of breath. 01/31: very awake ealier on 10 versed, and IV fent, doing well on vent, discussed with RT, going down no Fi02 to 65% 02/01: weaning PEEP and oxygen a little, doing a little better, cont current 02/02: weaning slowly, no event, improving slowly 02/04: Still on vent, awake, trying to self extubate. D/w pulm to stay on vent, BiPAP. WBC 16.7 02/05: WBC down to 14.2, afebrile heart rate in 40s comfortable on vent overnight. When sedation was weaned she almost self extubated. ABG 7. 50/39/66 on 50% FiO2 PEEP of 5. 7/10: Extubated without event 02/10: Patient is doing better today. Still needs 6 to 7 L of O2 and saturating 90%. She did have one large bowel movement. Still pending speech evaluation. PT OT is working with the patient now. 02/11: Requiring 7 L nasal cannula O2. She is saturating 100%. Discussed with RN to titrate down on O2. Speech evaluated and patient is able to tolerate regular diet with thickened liquids. Patient is working well with PT OT. 02/13: Saturating 91% on 5 L nasal cannula. She is sitting up in bed and appears to have more energy compared to yesterday. She has been working with physical therapy 02/14: Saturating 95 to 97% on 5 L nasal cannula. She has more energy than yesterday and still on IV steroids. Patient is progressively improving each day. 02/15: Saturating 97% on 4 L nasal cannula. Patient continues to significantly improve 02/16: Afebrile, O2 sats 95% on 5 L nasal cannula. Seen on commode. She still having difficulty getting a deep breath, tries but she can't. Says she feels "mass mejor". 02/17: Afebrile. O2 saturation 94% on 6 L nasal cannula. States she is feeling better today. However she has conversational dyspnea and difficulty getting a deep breath. 02/18: Afebrile. O2 saturation 90% on 6 L nasal cannula. She worked with [employer] today and had significant aspirations with thin liquids. Still on 6L NCO2. Afebrile. She states she feels better is able to work with PT to go to the restroom on her own and able to take 3 steps with standby assistance. Still very weak after that falls back into the chair. On a social note apparently during her extended hospital stay she has been evicted from her apartment. COVID-19 CRITERIA: The patient was evaluated during the global COVID-19 aguilar demic, and that diagnosis was suspected/considered upon their initial presentation. Their evaluation, treatment and testing was consistent with current guidelines for patients who present with complaints or symptoms that may be related to COVID-19. Vitals Vitals Vital Signs Date Time Temp Pulse Resp B/P (MAP) Pulse Ox O2 Delivery O2 Flow Rate FiO2 02/20/20 03:00 97.9 95 24 120/63 (82) 94 Nasal Cannula 5.0 97.9 Physical Exam Physical Exam GENERAL: Patient is alert and awake. NAD HEENT: Moist mucous membranes. No scleral icterus or obvious cervical lymphadenopathy CV: RRR. No murmurs rubs or gallops. Unable to appreciate S3 or S4 PULM: Bilaterally clear to auscultation. Chest expanding equally bilaterally without use of accessory muscles. Patient is able to expel good effort and cough ABD: Soft and nondistended on visualization and palpation. Normoactive bowel sounds heard. EXTREMITIES: No pedal edema seen. No warmth or tenderness upon touch. NEURO: Full ROM in all extremities. Patient has 3 out of 5 strength General: Other Heart: Regular rate Abdomen: Other Extremities: No cyanosis Skin: No breakdown Assessment and Plan Assessmemt and Plan Problems Medical Problems: (1) Pneumonia due to COVID-19 virus Status: Acute Comment Review of Relevant I have reviewed the following items stephon (where applicable) has been applied. Medications Current Medications Acetaminophen (Tylenol) 1,000 mg 1X ONCE PO Last administered on 01/21/20at 17:00; Start 01/21/20 at 17:00; Stop 01/21/20 at 17:01; Status DC Ondansetron HCl (Zofran) 4 mg PRN Q8HRS PRN IV NAUSEA/VOMITING; Start 01/21/20 at 18:00; Stop 01/22/20 at 07:55; Status DC Dexamethasone Sodium Phosphate (Decadron) 6 mg 1X ONCE IVP Last administered on 01/21/20at 18:14; Start 01/21/20 at 18:00; Stop 01/21/20 at 18:01; Status DC Ceftriaxone Sodium (Rocephin) 1 gm 1X ONCE IVP Last administered on 01/21/20at 18:14; Start 01/21/20 at 18:00; Stop 01/21/20 at 18:01; Status DC Azithromycin 500 mg/Sodium Chloride 250 ml @ 250 mls/hr Q24H IV Last admi nistered on 01/25/20at 19:00; Start 01/22/20 at 19:00; Stop 01/26/20 at 09:05; Status DC Azithromycin 250 ml @ 250 mls/hr 1X ONCE IV Last administered on 01/21/20at 18:25; Start 01/21/20 at 18:15; Stop 01/21/20 at 19:14; Status DC Dexamethasone Sodium Phosphate (Decadron) 6 mg DAILY IVP Last administered on 02/06/20at 09:17; Start 01/22/20 at 09:00; Stop 02/06/20 at 14:50; Status DC Ceftriaxone Sodium (Rocephin) 1 gm Q24H IVP Last administered on 01/29/20at 20:14; Start 01/22/20 at 20:00; Stop 01/30/20 at 16:07; Status DC Azithromycin 250 ml @ 250 mls/hr 1X ONCE IV ; Start 01/21/20 at 19:45; Stop 01/21/20 at 20:44; Status UNV Acetaminophen (Tylenol) 650 mg PRN Q6HRS PRN PO Headaches, Temp > 101.5' Last administered on 02/16/20at 10:06; Start 01/21/20 at 19:45 Ondansetron HCl (Zofran) 4 mg PRN Q6HRS PRN IVP NAUSEA/VOMITING; Start 01/21/20 at 19:45 Al Hydroxide/Mg Hydroxide (Mylanta Plus Xs) 30 ml PRN Q3HRS PRN PO HEARTBURN / GAS; Start 01/21/20 at 19:45 Famotidine (Pepcid) 20 mg BID PO Last administered on 02/05/20at 07:56; Start 01/21/20 at 21:00; Stop 02/05/20 at 20:05; Status DC Enoxaparin Sodium (Lovenox 40mg Syringe) 40 mg Q24H SQ Last administered on 01/21/20at 21:07; Start 01/21/20 at 20:00; Stop 01/22/20 at 10:45; Status DC Sodium Chloride (Normal Saline Flush) 3 ml QSHIFT PRN IV AFTER MEDS AND BLOOD DRAWS; Start 01/21/20 at 19:45 Senna/Docusate Sodium (Senna Plus) 1 tab BID PO Last administered on 02/19/20at 21:23; Start 01/21/20 at 21:00 Magnesium Hydroxide (Milk Of Magnesia) 2,400 mg PRN Q12HR PRN PO CONSTIPATION; Start 01/21/20 at 19:45 Sterile Water (WATER for RESP) 1,000 ml CONT PRN INH VIA VAPOTHERM DEVICE Last administered on 01/23/20at 12:46; Start 01/22/20 at 04:30; Stop 02/05/20 at 09:43; Status DC Lactobacillus Rhamnosus (Culturelle) 1 cap BID PO Last administered on 02/04/20at 07:15; Start 01/22/20 at 09:00; Stop 02/04/20 at 10:38; Status DC Non-Formulary Medication 1 ea/ Sodium Chloride 210 ml @ 420 mls/hr ONCE ONCE IV Last administered on 01/22/20at 10:44; Start 01/22/20 at 11:00; Stop 01/22/20 at 11:29; Status DC Non-Formulary Medication 1 ea/ Sodium Chloride 230 ml @ 460 mls/hr DAILY IV Last administered on 01/26/20at 09:58; Start 01/23/20 at 09:00; Stop 01/26/20 at 09:29; Status DC Enoxaparin Sodium (Lovenox 40mg Syringe) 40 mg BID SQ Last administered on 01/30/20at 20:39; Start 01/22/20 at 11:00; Stop 01/30/20 at 20:57; Status DC Lorazepam (Ativan Inj) 0.5 mg PRN Q4HRS PRN IVP ANXIETY / AGITATION 1ST CHOICE Last administered on 02/09/20at 02:13; Start 01/23/20 at 21:00; Stop 02/10/20 at 16:09; Status DC Lorazepam (Ativan Inj) 0.05 mg 1X ONCE IVP Last administered on 01/23/20at 21:13; Start 01/23/20 at 21:15; Stop 01/23/20 at 21:31; Status DC Fentanyl Citrate 30 ml @ 0 mls/hr CONT PRN IV SEE PROTOCOL Last administered on 02/01/20at 21:15; Start 01/23/20 at 22:45; Stop 02/02/20 at 02:27; Status DC Propofol 100 ml @ 0 mls/hr CONT PRN IV SEE PROTOCOL Last administered on 02/06/20at 04:59; Start 01/23/20 at 22:45; Stop 02/06/20 at 13:18; Status DC Midazolam HCl 100 ml @ 0 mls/hr CONT PRN IV SEE PROTOCOL Last administered on 02/04/20at 01:57; Start 01/23/20 at 22:45; Stop 02/06/20 at 13:18; Status DC Vecuronium [place] (Norcuron Bolus) 10 mg STK-MED ONCE IV ; Start 01/23/20 at 23:24; Stop 01/23/20 at 23:25; Status DC Vecuronium [place] (Norcuron Bolus) 60 mg 1X ONCE IV Last administered on 01/23/20at 23:30; Start 01/23/20 at 23:30; Stop 01/23/20 at 23:35; Status DC Norepinephrine Bitartrate 8 mg/ Dextrose 258 ml @ 20.666 mls/ hr CONT PRN IV PER PROTOCOL Last administered on 01/24/20at 12:28; Start 01/24/20 at 02:15; Stop 02/09/20 at 09:50; Status DC Vecuronium [place] (Norcuron Bolus) 6 mg PRN Q4HRS PRN IV SEDATION Last administered on 01/24/20at 15:40; Start 01/24/20 at 04:30; Stop 02/06/20 at 19:06; Status DC Succinylcholine Chloride (Anectine) 200 mg STK-MED ONCE .ROUTE ; Start 01/23/20 at 23:00; Stop 01/24/20 at 08:24; Status DC Etomidate (Amidate) 20 mg STK-MED ONCE IV ; Start 01/23/20 at 23:00; Stop 01/24/20 at 08:24; Status DC Ringer's Solution 1,000 ml @ 75 mls/hr [id number] IV Last administered on 01/25/20at 16:21; Start 01/24/20 at 12:30; Stop 01/26/20 at 09:17; Status DC Hydralazine HCl (Apresoline Inj) 10 mg PRN Q4HRS PRN IVP ELEVATED BP, SEE COMMENTS; Start 01/28/20 at 14:00 Heparin Sodium/ Dextrose 250 ml @ 17.6 mls/hr CONT PRN IV PER PROTOCOL Last administered on 02/05/20at 01:58; Start 01/30/20 at 21:00; Stop 02/05/20 at 20:07; Status DC Heparin Sodium (Porcine) (Heparin Sodium) 3,300 unit PRN Q6HRS PRN IV FOR UFH LEVEL LESS THAN 0.2; Start 01/30/20 at 21:00; Stop 02/06/20 at 16:22; Status DC Heparin Sodium (Porcine) (Heparin Sodium) 1,650 unit PRN Q6HRS PRN IV FOR UFH LEVEL 0.2 - 0.29 Last administered on 02/04/20 15:13; Start 01/30/20 at 21:00; Stop 02/06/20 at 16:23; Status DC Heparin Sodium (Porcine) (Heparin Sodium) 8,700 unit 1X ONCE IV Last administered on 01/31/20at 08:20; Start 01/31/20 at 07:15; Stop 01/31/20 at 07:16; Status DC Fentanyl Citrate 55 ml @ 0 mls/hr CONT PRN PRN IV PAIN/SEDATION Last administered on 02/05/20 02:06; Start 02/02/20 at 02:30; Stop 02/06/20 at 19:06; Status DC Nystatin (Nystatin Oral Susp) 5 ml BID SWSW Last administered on 02/19/20at 21:24; Start 02/02/20 at 09:00 Furosemide (Lasix) 40 mg 1X ONCE IVP Last administered on 02/04/20at 17:12; Start 02/04/20 at 16:00; Stop 02/04/20 at 16:01; Status DC Dexmedetomidine HCl 400 mcg/ Sodium Chloride 100 ml @ 0 mls/hr CONT PRN IV SEE COMMENTS Last administered on 02/06/20at 09:08; Start 02/05/20 at 07:30; Stop 02/09/20 at 09:49; Status DC Sodium Chloride 500 ml @ 500 mls/hr 1X PRN PRN IV ANXIETY / AGITATION; Start 02/05/20 at 07:30; Stop 02/10/20 at 11:01; Status DC Atropine Sulfate (ATROPINE 0.5mg SYRINGE) 0.5 mg PRN Q5MIN PRN IV SEE COMMENTS; Start 02/05/20 at 07:30 Info (Anti-Coagulation Monitoring By Pharmacy) 1 each PRN DAILY PRN MC SEE COMMENTS Last administered on 02/10/20at 15:26; Start 02/05/20 at 07:45; Stop 02/10/20 at 16:09; Status DC Famotidine (Pepcid Vial) 40 mg BID IVP Last administered on 02/13/20at 08:22; Start 02/05/20 at 21:00; Stop 02/13/20 at 10:05; Status DC Haloperidol Lactate (Haldol Inj) 5 mg PRN Q6HRS PRN IVP AGITATION (2ND CHOICE); Start 02/06/20 at 15:00; Stop 02/10/20 at 16:09; Status DC Methylprednisolone Sodium Succinate (SOLU-Medrol 40MG VIAL) 40 mg Q12HR IV Last administered on 02/10/20at 10:31; Start 02/06/20 at 21:00; Stop 02/10/20 at 16:09; Status DC Diphenhydramine HCl (Benadryl) 50 mg 1X ONCE IVP Last administered on 02/06/20at 18:42; Start 02/06/20 at 18:45; Stop 02/06/20 at 18:46; Status DC Sodium Chloride 1,000 ml @ 50 mls/hr 1X ONCE IV Last administered on 05/19at 10:15; Start 02/07/20 at 10:15; Stop 02/08/20 at 06:14; Status DC Heparin Sodium/ Dextrose 250 ml @ 15.776 mls/ hr CONT PRN IV PER PROTOCOL Last administered on 02/09/20at 20:36; Start 02/07/20 at 14:30; Stop 02/10/20 at 16:09; Status DC Heparin Sodium (Porcine) (Heparin Sodium) 2,950 unit PRN Q6HRS PRN IV FOR UFH LEVEL LESS THAN 0.2; Start 02/07/20 at 14:30; Stop 02/10/20 at 16:09; Status DC Heparin Sodium (Porcine) (Heparin Sodium) 1,500 unit PRN Q6HRS PRN IV FOR UFH LEVEL 0.2 - 0.29; Start 02/07/20 at 14:30; Stop 02/10/20 at 16:09; Status DC Bisacodyl (Dulcolax Supp) 10 mg 1X ONCE [place] ; Start 02/10/20 at 10:15; Stop 02/10/20 at 10:16; Status DC Dextrose/Sodium Chloride 1,000 ml @ 75 mls/hr [id number] IV Last administered on 02/17/20at 05:58; Start 02/10/20 at 14:00; Stop 02/17/20 at 12:28; Status DC Methylprednisolone Sodium Succinate (SOLU-Medrol 40MG VIAL) 40 mg DAILY IV Last administered on 02/13/20at 08:21; Start 02/11/20 at 09:00; Stop 02/13/20 at 17:14; Status DC Enoxaparin Sodium (Lovenox 40mg Syringe) 40 mg Q12HR SQ Last administered on 02/19/20at 21:24; Start 02/10/20 at 21:00 Famotidine (Pepcid) 20 mg QHS PO Last administered on 02/19/20at 21:23; Start 02/13/20 at 21:00 Ascorbic Acid (Vitamin C) 500 mg DAILY PO Last administered on 02/19/20at 08:43; Start 02/13/20 at 17:00 Thiamine Mononitrate (Vitamin B-1) 100 mg DAILY PO Last administered on 02/19/20at 08:43; Start 02/13/20 at 17:00 Fluticasone Propionate (Flonase) 2 spray DAILY NS Last administered on 02/19/20at 08:43; Start 02/15/20 at 09:00 Active Scripts Active Keflex (Cephalexin) 500 Mg Capsule 500 Mg PO QID 10 Days [place] 5-325 Tablet (Acetaminophen/Hydrocodone Bitart) 1 Each Tablet 1 Tab PO PRN Q6HRS PRN Vitals/I & O Vital Sign - Last 24 Hours 02/19/20 02/19/20 02/19/20 02/19/20 08:00 11:16 15:00 20:00 Temp 97.2 98.3 97.2 98.3 Pulse 72 65 Resp 17 18 B/P (MAP) 130/69 (89) 132/72 (92) Pulse Ox 93 95 O2 Delivery Nasal Cannula Nasal Cannula Nasal Cannula Nasal Cannula O2 Flow Rate 6.0 6.0 6.0 5.0 02/19/20 02/19/20 02/20/20 20:46 23:34 03:00 Temp 98.3 98.4 97.9 98.3 98.4 97.9 Pulse 83 75 95 Resp 20 20 24 B/P (MAP) 116/61 (79) 132/70 (90) 120/63 (82) Pulse Ox 90 94 94 O2 Delivery Nasal Cannula Nasal Cannula Nasal Cannula O2 Flow Rate 6.0 6.0 5.0 Intake and Output 02/19/20 02/19/20 02/20/20 14:59 22:59 06:59 Intake Total 200 ml 300 ml Output Total 600 ml Balance 200 ml 300 ml -600 ml Justicifation of Admission Dx: Justifications for Admission: Justification of Admission Dx: Yes Respiratory Failure: Severe Resp Distress THA NOBLE MD Feb 20, 2020 07:47
[2020-02-20 11:06] VITALS: BP 100/55
[2020-02-20] MEDS: FLUTICASONE 50MCG/NASAL SPRAY 16GM BOTTLE. NS SCH (11:06)
[2020-02-20] MEDS: NYSTATIN 100,000 UNITS/ML 5 ML ORAL.SUSP. SWSW SCH ×2 (11:07→22:29)
[2020-02-20] MEDS: THIAMINE 100 MG TABLET. PO SCH (11:07)
[2020-02-20] MEDS: SENNOSIDES/DOCUSATE 8.6/50MG TABLET. PO SCH ×2 (11:07→22:29)
[2020-02-20] MEDS: ASCORBIC ACID 500 MG TABLET PO SCH (11:07)
[2020-02-20] MEDS: ENOXAPARIN 40 MG/0.4 ML SYRINGE. SQ SCH ×2 (11:07→22:29)
[2020-02-20 15:20] VITALS: BP 130/78
--- NOTE | 2020-02-20 17:33 | NUR ---
SW following. SW reviewed chart and spoke with RN. Discharge plan remains home with family and private pay 02 when stable. Pt not ready for discharge. SW to continue following.
[2020-02-20 19:00] VITALS: BP 121/61
[2020-02-20] MEDS: FAMOTIDINE 20 MG TABLET. PO SCH (22:29)
[2020-02-20 23:00] VITALS: BP 120/66
[2020-02-21 03:00] VITALS: BP 116/57
[2020-02-21 06:49] LABS: BASO % 1 % (0-3); EOS # 0.4 x10^3/uL (0.0-0.7); EOS % 6 % (0-3); HEMATOCRIT 30.7 % (36.0-47.0); HEMOGLOBIN 10.5 g/dL (12.0-15.5); LYMPH # 1.2 x10^3/uL (1.0-4.8); LYMPH % 18 % (24-48); MEAN CORPUSCULAR HEMOGLOBIN 30 pg (25-35); MEAN CORPUSCULAR HGB CONC 34 g/dL (31-37); MEAN CORPUSCULAR VOLUME 87 fL (79-100); MONO # 0.5 x10^3/uL (0.0-1.1); MONO % 8 % (0-9); NEUT # 4.6 x10^3/uL (1.8-7.7); NEUT % 68 % (31-73); PLATELET COUNT 264 x10^3/uL (140-400); RED BLOOD COUNT 3.54 x10^6/uL (3.50-5.40); RED CELL DISTRIBUTION WIDTH 17.8 % (11.5-14.5); WHITE BLOOD COUNT 6.8 x10^3/uL (4.0-11.0)
[2020-02-21 06:59] LABS: ALBUMIN 2.7 g/dL (3.4-5.0); ALBUMIN/GLOBULIN RATIO 0.8 (1.0-1.7); CALCIUM 8.1 mg/dL (8.5-10.1); CREATININE 0.4 mg/dL (0.6-1.0); GFR 173.4; TOTAL BILIRUBIN 0.4 mg/dL (0.2-1.0); TOTAL PROTEIN 6.1 g/dL (6.4-8.2)
[2020-02-21 07:00] VITALS: BP 127/64
--- NOTE | 2020-02-21 07:52 | PDOC ---
PROGRESS NOTES Chief Complaint Chief Complaint Oropharyngeal Dysphagiaimproved Critical care myopathyimproved Acute Hypoxic Respiratory Failure Secondary to COVID-19 and sepsis pneumonia multifocal pulmonary infiltrates.// follow-up to resolution. Morbid Obesity, BMI 44 HTN NORMOCYTIC ANEMIA severe protein-caloric malnutrition Critical care myopathy Continue with speech recommendations for regular diet and thickened liquids Continue PT OT who recommends acute rehab Appreciate pulmonary recommendations Continue with daily Solu-Medrol Continue with full dose Lovenox Titrate O2 therapy with goal of 88-92% Lovenox for DVT prophylaxis Regular diet Full code Discussed with RN and SW Dispo pending rehab vs home placement. Patient likely may be able to discharge home without any rehab or home O2 requirements. The patient was evaluated during the global COVID-19 pandemic, and that diagnosis was suspected/considered upon their initial presentation. Their evaluation, treatment and testing was consistent with current guidelines for patients who present with complaints or symptoms that may be related to COVID- 19. History of Present Illness History of Present Illness Ms Hackett is a 44-year-old female, who had been having fever and shortness of breath for about a week or so. The patient had outpatient COVID-19 done through [facility] on 01/13/2020 and was informed of positive results on 01/14/2020, which was positive and because of more shortness of breath, she decided to come in. The patient is requiring significant oxygen support. The patient denies any nausea, vomiting or diarrhea. Denies any other complaints other than shortness of breath. 01/31: very awake ealier on 10 versed, and IV fent, doing well on vent, discussed with RT, going down no Fi02 to 65% 02/01: weaning PEEP and oxygen a little, doing a little better, cont current 02/02: weaning slowly, no event, improving slowly 02/04: Still on vent, awake, trying to self extubate. D/w pulm to stay on vent, BiPAP. WBC 16.7 02/05: WBC down to 14.2, afebrile heart rate in 40s comfortable on vent overnight. When sedation was weaned she almost self extubated. ABG 7. 50/39/66 on 50% FiO2 PEEP of 5. 7/10: Extubated without event 02/10: Patient is doing better today. Still needs 6 to 7 L of O2 and saturating 90%. She did have one large bowel movement. Still pending speech evaluation. PT OT is working with the patient now. 02/11: Requiring 7 L nasal cannula O2. She is saturating 100%. Discussed with RN to titrate down on O2. Speech evaluated and patient is able to tolerate regular diet with thickened liquids. Patient is working well with PT OT. 02/13: Saturating 91% on 5 L nasal cannula. She is sitting up in bed and appears to have more energy compared to yesterday. She has been working with physical therapy 02/14: Saturating 95 to 97% on 5 L nasal cannula. She has more energy than yesterday and still on IV steroids. Patient is progressively improving each day. 02/15: Saturating 97% on 4 L nasal cannula. Patient continues to significantly improve 02/16: Afebrile, O2 sats 95% on 5 L nasal cannula. Seen on commode. She still having difficulty getting a deep breath, tries but she can't. Says she feels "mass mejor". 02/17: Afebrile. O2 saturation 94% on 6 L nasal cannula. States she is feeling better today. However she has conversational dyspnea and difficulty getting a deep breath. 02/18: Afebrile. O2 saturation 90% on 6 L nasal cannula. She worked with [employer] today and had significant aspirations with thin liquids. 02/19: Still on 6L NCO2. Afebrile. She states she feels better is able to work with PT to go to the restroom on her own and able to take 3 steps with standby assistance. Still very weak after that falls back into the chair. On a social note apparently during her extended hospital stay she has been evicted from her apartment. Afebrile on 5 L nasal cannulated oxygen 93%. She had her first bath today. Still weak with therapy. Unable to get her O2 needs down, still aspirating anything but thickened liquids. COVID-19 CRITERIA: The patient was evaluated during the global COVID-19 pandemic, and that diagnosis was suspected/considered upon their initial presentation. Their evaluation, treatment and testing was consistent with current guidelines for patients who present with complaints or symptoms that may be related to COVID-19. Vitals Vitals Vital Signs Date Time Temp Pulse Resp B/P (MAP) Pulse Ox O2 Delivery O2 Flow Rate FiO2 02/21/20 03:00 97.0 72 18 116/57 (76) 93 Nasal Cannula 5.0 97.0 Physical Exam Physical Exam GENERAL: Patient is alert and awake. NAD HEENT: Moist mucous membranes. No scleral icterus or obvious cervical lymphadenopathy CV: RRR. No murmurs rubs or gallops. Unable to appreciate S3 or S4 PULM: Bilaterally clear to auscultation. Chest expanding equally bilaterally without use of accessory muscles. Patient is able to expel good effort and cough ABD: Soft and nondistended on visualization and palpation. Normoactive bowel sounds heard. EXTREMITIES: No pedal edema seen. No warmth or tenderness upon touch. NEURO: Full ROM in all extremities. Patient has 3 out of 5 strength General: Other Heart: Regular rate Abdomen: Other Extremities: No cyanosis Skin: No breakdown Labs LABS Laboratory Tests Test 02/21/20 06:25 White Blood Count 6.8 x10^3/uL (4.0-11.0) Red Blood Count 3.54 x10^6/uL (3.50-5.40) Hemoglobin 10.5 g/dL (12.0-15.5) Hematocrit 30.7 % (36.0-47.0) Mean Corpuscular Volume 87 fL (79-100) Mean Corpuscular Hemoglobin 30 pg (25-35) Mean Corpuscular Hemoglobin Concent 34 g/dL (31-37) Red Cell Distribution Width 17.8 % (11.5-14.5) Platelet Count 264 x10^3/uL (140-400) Neutrophils (%) (Auto) 68 % (31-73) Lymphocytes (%) (Auto) 18 % (24-48) Monocytes (%) (Auto) 8 % (0-9) Eosinophils (%) (Auto) 6 % (0-3) Basophils (%) (Auto) 1 % (0-3) Neutrophils # (Auto) 4.6 x10^3/uL (1.8-7.7) Lymphocytes # (Auto) 1.2 x10^3/uL (1.0-4.8) Monocytes # (Auto) 0.5 x10^3/uL (0.0-1.1) Eosinophils # (Auto) 0.4 x10^3/uL (0.0-0.7) Basophils # (Auto) 0.0 x10^3/uL (0.0-0.2) Sodium Level 143 mmol/L (136-145) Potassium Level 4.0 mmol/L (3.5-5.1) Chloride Level 106 mmol/L (98-107) Carbon Dioxide Level 33 mmol/L (21-32) Anion Gap 4 (6-14) Blood Urea Nitrogen 5 mg/dL (7-20) Creatinine 0.4 mg/dL (0.6-1.0) Estimated GFR (Cockcroft-Gault) 173.4 BUN/Creatinine Ratio 13 (6-20) Glucose Level 89 mg/dL (70-99) Calcium Level 8.1 mg/dL (8.5-10.1) Total Bilirubin 0.4 mg/dL (0.2-1.0) Aspartate Amino Transf (AST/SGOT) 20 U/L (15-37) Alanine Aminotransferase (ALT/SGPT) 31 U/L (14-59) Alkaline Phosphatase 61 U/L (46-116) Total Protein 6.1 g/dL (6.4-8.2) Albumin 2.7 g/dL (3.4-5.0) Albumin/Globulin Ratio 0.8 (1.0-1.7) Assessment and Plan Assessmemt and Plan Problems Medical Problems: (1) Pneumonia due to COVID-19 virus Status: Acute Comment Review of Relevant I have reviewed the following items stephon (where applicable) has been applied. Labs Laboratory Tests Test 02/21/20 06:25 White Blood Count 6.8 x10^3/uL (4.0-11.0) Red Blood Count 3.54 x10^6/uL (3.50-5.40) Hemoglobin 10.5 g/dL (12.0-15.5) Hematocrit 30.7 % (36.0-47.0) Mean Corpuscular Volume 87 fL (79-100) Mean Corpuscular Hemoglobin 30 pg (25-35) Mean Corpuscular Hemoglobin Concent 34 g/dL (31-37) Red Cell Distribution Width 17.8 % (11.5-14.5) Platelet Count 264 x10^3/uL (140-400) Neutrophils (%) (Auto) 68 % (31-73) Lymphocytes (%) (Auto) 18 % (24-48) Monocytes (%) (Auto) 8 % (0-9) Eosinophils (%) (Auto) 6 % (0-3) Basophils (%) (Auto) 1 % (0-3) Neutrophils # (Auto) 4.6 x10^3/uL (1.8-7.7) Lymphocytes # (Auto) 1.2 x10^3/uL (1.0-4.8) Monocytes # (Auto) 0.5 x10^3/uL (0.0-1.1) Eosinophils # (Auto) 0.4 x10^3/uL (0.0-0.7) Basophils # (Auto) 0.0 x10^3/uL (0.0-0.2) Sodium Level 143 mmol/L (136-145) Potassium Level 4.0 mmol/L (3.5-5.1) Chloride Level 106 mmol/L (98-107) Carbon Dioxide Level 33 mmol/L (21-32) Anion Gap 4 (6-14) Blood Urea Nitrogen 5 mg/dL (7-20) Creatinine 0.4 mg/dL (0.6-1.0) Estimated GFR (Cockcroft-Gault) 173.4 BUN/Creatinine Ratio 13 (6-20) Glucose Level 89 mg/dL (70-99) Calcium Level 8.1 mg/dL (8.5-10.1) Total Bilirubin 0.4 mg/dL (0.2-1.0) Aspartate Amino Transf (AST/SGOT) 20 U/L (15-37) Alanine Aminotransferase (ALT/SGPT) 31 U/L (14-59) Alkaline Phosphatase 61 U/L (46-116) Total Protein 6.1 g/dL (6.4-8.2) Albumin 2.7 g/dL (3.4-5.0) Albumin/Globulin Ratio 0.8 (1.0-1.7) Laboratory Tests Test 02/21/20 06:25 White Blood Count 6.8 x10^3/uL (4.0-11.0) Red Blood Count 3.54 x10^6/uL (3.50-5.40) Hemoglobin 10.5 g/dL (12.0-15.5) Hematocrit 30.7 % (36.0-47.0) Mean Corpuscular Volume 87 fL (79-100) Mean Corpuscular Hemoglobin 30 pg (25-35) Mean Corpuscular Hemoglobin Concent 34 g/dL (31-37) Red Cell Distribution Width 17.8 % (11.5-14.5) Platelet Count 264 x10^3/uL (140-400) Neutrophils (%) (Auto) 68 % (31-73) Lymphocytes (%) (Auto) 18 % (24-48) Monocytes (%) (Auto) 8 % (0-9) Eosinophils (%) (Auto) 6 % (0-3) Basophils (%) (Auto) 1 % (0-3) Neutrophils # (Auto) 4.6 x10^3/uL (1.8-7.7) Lymphocytes # (Auto) 1.2 x10^3/uL (1.0-4.8) Monocytes # (Auto) 0.5 x10^3/uL (0.0-1.1) Eosinophils # (Auto) 0.4 x10^3/uL (0.0-0.7) Basophils # (Auto) 0.0 x10^3/uL (0.0-0.2) Sodium Level 143 mmol/L (136-145) Potassium Level 4.0 mmol/L (3.5-5.1) Chloride Level 106 mmol/L (98-107) Carbon Dioxide Level 33 mmol/L (21-32) Anion Gap 4 (6-14) Blood Urea Nitrogen 5 mg/dL (7-20) Creatinine 0.4 mg/dL (0.6-1.0) Estimated GFR (Cockcroft-Gault) 173.4 BUN/Creatinine Ratio 13 (6-20) Glucose Level 89 mg/dL (70-99) Calcium Level 8.1 mg/dL (8.5-10.1) Total Bilirubin 0.4 mg/dL (0.2-1.0) Aspartate Amino Transf (AST/SGOT) 20 U/L (15-37) Alanine Aminotransferase (ALT/SGPT) 31 U/L (14-59) Alkaline Phosphatase 61 U/L (46-116) Total Protein 6.1 g/dL (6.4-8.2) Albumin 2.7 g/dL (3.4-5.0) Albumin/Globulin Ratio 0.8 (1.0-1.7) Medications Current Medications Acetaminophen (Tylenol) 1,000 mg 1X ONCE PO Last administered on 01/21/20at 17:00; Start 01/21/20 at 17:00; Stop 01/21/20 at 17:01; Status DC Ondansetron HCl (Zofran) 4 mg PRN Q8HRS PRN IV NAUSEA/VOMITING; Start 01/21/20 at 18:00; Stop 01/22/20 at 07:55; Status DC Dexamethasone Sodium Phosphate (Decadron) 6 mg 1X ONCE IVP Last administered on 01/21/20at 18:14; Start 01/21/20 at 18:00; Stop 01/21/20 at 18:01; Status DC Ceftriaxone Sodium (Rocephin) 1 gm 1X ONCE IVP Last administered on 01/21/20at 18:14; Start 01/21/20 at 18:00; Stop 01/21/20 at 18:01; Status DC Azithromycin 500 mg/Sodium Chloride 250 ml @ 250 mls/hr Q24H IV Last administered on 01/25/20at 19:00; Start 01/22/20 at 19:00; Stop 01/26/20 at 09:05; Status DC Azithromycin 250 ml @ 250 mls/hr 1X ONCE IV Last administered on 01/21/20at 18:25; Start 01/21/20 at 18:15; Stop 01/21/20 at 19:14; Status DC Dexamethasone Sodium Phosphate (Decadron) 6 mg DAILY IVP Last administered on 02/06/20at 09:17; Start 01/22/20 at 09:00; Stop 02/06/20 at 14:50; Status DC Ceftriaxone Sodium (Rocephin) 1 gm Q24H IVP Last administered on 01/29/20at 20:14; Start 01/22/20 at 20:00; Stop 01/30/20 at 16:07; Status DC Azithromycin 250 ml @ 250 mls/hr 1X ONCE IV ; Start 01/21/20 at 19:45; Stop 01/21/20 at 20:44; Status UNV Acetaminophen (Tylenol) 650 mg PRN Q6HRS PRN PO Headaches, Temp > 101.5' Last administered on 02/16/20at 10:06; Start 01/21/20 at 19:45 Ondansetron HCl (Zofran) 4 mg PRN Q6HRS PRN IVP NAUSEA/VOMITING; Start 01/21/20 at 19:45 Al Hydroxide/Mg Hydroxide (Mylanta Plus Xs) 30 ml PRN Q3HRS PRN PO HEARTBURN / GAS; Start 01/21/20 at 19:45 Famotidine (Pepcid) 20 mg BID PO Last administered on 02/05/20at 07:56; Start 01/21/20 at 21:00; Stop 02/05/20 at 20:05; Status DC Enoxaparin Sodium (Lovenox 40mg Syringe) 40 mg Q24H SQ Last administered on 01/21/20at 21:07; Start 01/21/20 at 20:00; Stop 01/22/20 at 10:45; Status DC Sodium Chloride (Normal Saline Flush) 3 ml QSHIFT PRN IV AFTER MEDS AND BLOOD DRAWS; Start 01/21/20 at 19:45 Senna/Docusate Sodium (Senna Plus) 1 tab BID PO Last administered on 02/20/20at 22:29; Start 01/21/20 at 21:00 Magnesium Hydroxide (Milk Of Magnesia) 2,400 mg PRN Q12HR PRN PO CONSTIPATION; Start 01/21/20 at 19:45 Sterile Water (WATER for RESP) 1,000 ml CONT PRN INH VIA VAPOTHERM DEVICE Last administered on 01/23/20at 12:46; Start 01/22/20 at 04:30; Stop 02/05/20 at 09:43; Status DC Lactobacillus Rhamnosus (Culturelle) 1 cap BID PO Last administered on 02/04/20at 07:15; Start 01/22/20 at 09:00; Stop 02/04/20 at 10:38; Status DC Non-Formulary Medication 1 ea/ Sodium Chloride 210 ml @ 420 mls/hr ONCE ONCE IV Last administered on 01/22/20at 10:44; Start 01/22/20 at 11:00; Stop 01/22/20 at 11:29; Status DC Non-Formulary Medication 1 ea/ Sodium Chloride 230 ml @ 460 mls/hr DAILY IV Last administered on 01/26/20at 09:58; Start 01/23/20 at 09:00; Stop 01/26/20 at 09:29; Status DC Enoxaparin Sodium (Lovenox 40mg Syringe) 40 mg BID SQ Last administered on 01/30/20at 20:39; Start 01/22/20 at 11:00; Stop 01/30/20 at 20:57; Status DC Lorazepam (Ativan Inj) 0.5 mg PRN Q4HRS PRN IVP ANXIETY / AGITATION 1ST CHOICE Last administered on 02/09/20at 02:13; Start 01/23/20 at 21:00; Stop 02/10/20 at 16:09; Status DC Lorazepam (Ativan Inj) 0.05 mg 1X ONCE IVP Last administered on 01/23/20at 21:13; Start 01/23/20 at 21:15; Stop 01/23/20 at 21:31; Status DC Fentanyl Citrate 30 ml @ 0 mls/hr CONT PRN IV SEE PROTOCOL Last administered on 02/01/20at 21:15; Start 01/23/20 at 22:45; Stop 02/02/20 at 02:27; Status DC Propofol 100 ml @ 0 mls/hr CONT PRN IV SEE PROTOCOL Last administered on 02/06/20at 04:59; Start 01/23/20 at 22:45; Stop 02/06/20 at 13:18; Status DC Midazolam HCl 100 ml @ 0 mls/hr CONT PRN IV SEE PROTOCOL Last administered on 02/04/20at 01:57; Start 01/23/20 at 22:45; Stop 02/06/20 at 13:18; Status DC Vecuronium [place] (Norcuron Bolus) 10 mg STK-MED ONCE IV ; Start 01/23/20 at 23:24; Stop 01/23/20 at 23:25; Status DC Vecuronium [place] (Norcuron Bolus) 60 mg 1X ONCE IV Last administered on 01/23/20at 23:30; Start 01/23/20 at 23:30; Stop 01/23/20 at 23:35; Status DC Norepinephrine Bitartrate 8 mg/ Dextrose 258 ml @ 20.666 mls/ hr CONT PRN IV PER PROTOCOL Last administered on 01/24/20at 12:28; Start 01/24/20 at 02:15; Stop 02/09/20 at 09:50; Status DC Vecuronium [place] (Norcuron Bolus) 6 mg PRN Q4HRS PRN IV SEDATION Last administered on 01/24/20at 15:40; Start 01/24/20 at 04:30; Stop 02/06/20 at 19:06; Status DC Succinylcholine Chloride (Anectine) 200 mg STK-MED ONCE .ROUTE ; Start 01/23/20 at 23:00; Stop 01/24/20 at 08:24; Status DC Etomidate (Amidate) 20 mg STK-MED ONCE IV ; Start 01/23/20 at 23:00; Stop 01/24/20 at 08:24; Status DC Ringer's Solution 1,000 ml @ 75 mls/hr [id number] IV Last administered on 01/25/20at 16:21; Start 01/24/20 at 12:30; Stop 01/26/20 at 09:17; Status DC Hydralazine HCl (Apresoline Inj) 10 mg PRN Q4HRS PRN IVP ELEVATED BP, SEE COMMENTS; Start 01/28/20 at 14:00 Heparin Sodium/ Dextrose 250 ml @ 17.6 mls/hr CONT PRN IV PER PROTOCOL Last administered on 02/05/20at 01:58; Start 01/30/20 at 21:00; Stop 02/05/20 at 20:07; Status DC Heparin Sodium (Porcine) (Heparin Sodium) 3,300 unit PRN Q6HRS PRN IV FOR UFH LEVEL LESS THAN 0.2; Start 01/30/20 at 21:00; Stop 02/06/20 at 16:22; Status DC Heparin Sodium (Porcine) (Heparin Sodium) 1,650 unit PRN Q6HRS PRN IV FOR UFH LEVEL 0.2 - 0.29 Last administered on 02/04/20at 15:13; Start 01/30/20 at 21:00; Stop 02/06/20 at 16:23; Status DC Heparin Sodium (Porcine) (Heparin Sodium) 8,700 unit 1X ONCE IV Last administered on 01/31/20at 08:20; Start 01/31/20 at 07:15; Stop 01/31/20 at 07:16; Status DC Fentanyl Citrate 55 ml @ 0 mls/hr CONT PRN PRN IV PAIN/SEDATION Last administered on 02/05/20at 02:06; Start 02/02/20 at 02:30; Stop 02/06/20 at 19:06; Status DC Nystatin (Nystatin Oral Susp) 5 ml BID SWSW Last administered on 02/20/20at 22:29; Start 02/02/20 at 09:00 Furosemide (Lasix) 40 mg 1X ONCE IVP Last administered on 02/04/20at 17:12; Start 02/04/20 at 16:00; Stop 02/04/20 at 16:01; Status DC Dexmedetomidine HCl 400 mcg/ Sodium Chloride 100 ml @ 0 mls/hr CONT PRN IV SEE COMMENTS Last administered on 02/06/20at 09:08; Start 02/05/20 at 07:30; Stop 02/09/20 at 09:49; Status DC Sodium Chloride 500 ml @ 500 mls/hr 1X PRN PRN IV ANXIETY / AGITATION; Start 02/05/20 at 07:30; Stop 02/10/20 at 11:01; Status DC Atropine Sulfate (ATROPINE 0.5mg SYRINGE) 0.5 mg PRN Q5MIN PRN IV SEE COMMENTS; Start 02/05/20 at 07:30; Stop 02/20/20 at 13:39; Status DC Info (Anti-Coagulation Monitoring By Pharmacy) 1 each PRN DAILY PRN MC SEE COMMENTS Last administered on 02/10/20at 15:26; Start 02/05/20 at 07:45; Stop 02/10/20 at 16:09; Status DC Famotidine (Pepcid Vial) 40 mg BID IVP Last administered on 02/13/20at 08:22; Start 02/05/20 at 21:00; Stop 02/13/20 at 10:05; Status DC Haloperidol Lactate (Haldol Inj) 5 mg PRN Q6HRS PRN IVP AGITATION (2ND CHOICE); Start 02/06/20 at 15:00; Stop 02/10/20 at 16:09; Status DC Methylprednisolone Sodium Succinate (SOLU-Medrol 40MG VIAL) 40 mg Q12HR IV Last administered on 02/10/20at 10:31; Start 02/06/20 at 21:00; Stop 02/10/20 at 16:09; Status DC Diphenhydramine HCl (Benadryl) 50 mg 1X ONCE IVP Last administered on 02/06/20at 18:42; Start 02/06/20 at 18:45; Stop 02/06/20 at 18:46; Status DC Sodium Chloride 1,000 ml @ 50 mls/hr 1X ONCE IV Last administered on 02/07/20at 10:15; Start 02/07/20 at 10:15; Stop 02/08/20 at 06:14; Status DC Heparin Sodium/ Dextrose 250 ml @ 15.776 mls/ hr CONT PRN IV PER PROTOCOL Last administered on 02/09/20at 20:36; Start 02/07/20 at 14:30; Stop 02/10/20 at 16:09; Status DC Heparin Sodium (Porcine) (Heparin Sodium) 2,950 unit PRN Q6HRS PRN IV FOR UFH LEVEL LESS THAN 0.2; Start 02/07/20 at 14:30; Stop 02/10/20 at 16:09; Status DC Heparin Sodium (Porcine) (Heparin Sodium) 1,500 unit PRN Q6HRS PRN IV FOR UFH LEVEL 0.2 - 0.29; Start 02/07/20 at 14:30; Stop 02/10/20 at 16:09; Status DC Bisacodyl (Dulcolax Supp) 10 mg 1X ONCE NC ; Start 02/10/20 at 10:15; Stop 02/10/20 at 10:16; Status DC Dextrose/Sodium Chloride 1,000 ml @ 75 mls/hr [id number] IV Last administered on 02/17/20at 05:58; Start 02/10/20 at 14:00; Stop 02/17/20 at 12:28; Status DC Methylprednisolone Sodium Succinate (SOLU-Medrol 40MG VIAL) 40 mg DAILY IV Last administered on 02/13/20at 08:21; Start 02/11/20 at 09:00; Stop 02/13/20 at 17:14; Status DC Enoxaparin Sodium (Lovenox 40mg Syringe) 40 mg Q12HR SQ Last administered on 02/20/20at 22:29; Start 02/10/20 at 21:00 Famotidine (Pepcid) 20 mg QHS PO Last administered on 02/20/20at 22:29; Start 02/13/20 at 21:00 Ascorbic Acid (Vitamin C) 500 mg DAILY PO Last administered on 02/20/20at 11:07; Start 02/13/20 at 17:00 Thiamine Mononitrate (Vitamin B-1) 100 mg DAILY PO Last administered on 02/20/20at 11:07; Start 02/13/20 at 17:00 Fluticasone Propionate (Flonase) 2 spray DAILY NS Last administered on 02/20/20at 11:06; Start 02/15/20 at 09:00 Active Scripts Active Keflex (Cephalexin) 500 Mg Capsule 500 Mg PO QID 10 Days [place] 5-325 Tablet (Acetaminophen/Hydrocodone Bitart) 1 Each Tablet 1 Tab PO PRN Q6HRS PRN Vitals/I & O Vital Sign - Last 24 Hours 02/20/20 02/20/20 02/20/20 02/20/20 08:00 11:06 15:20 19:00 Temp 96.6 96.7 98.3 96.6 96.7 98.3 Pulse 62 75 69 Resp 20 20 18 B/P (MAP) 100/55 (70) 130/78 (95) 121/61 (81) Pulse Ox 83 98 96 O2 Delivery Nasal Cannula Nasal Cannula Nasal Cannula Nasal Cannula O2 Flow Rate 5.0 5.0 5.0 5.0 02/20/20 02/20/20 02/21/20 20:00 23:00 03:00 Temp 97.6 97.0 97.6 97.0 Pulse 72 72 Resp 18 18 B/P (MAP) 120/66 (84) 116/57 (76) Pulse Ox 97 93 O2 Delivery Nasal Cannula Nasal Cannula Nasal Cannula O2 Flow Rate 5.0 5.0 5.0 Intake and Output 02/20/20 02/20/20 02/21/20 15:00 23:00 07:00 Intake Total 180 ml Output Total 1 ml Balance 180 ml -1 ml Justicifation of Admission Dx: Justifications for Admission: Justification of Admission Dx: Yes Respiratory Failure: Severe Resp Distress THA NOBLE MD Feb 21, 2020 07:52
[2020-02-21] MEDS: THIAMINE 100 MG TABLET. PO SCH (09:41)
[2020-02-21] MEDS: FLUTICASONE 50MCG/NASAL SPRAY 16GM BOTTLE. NS SCH (09:41)
[2020-02-21] MEDS: SENNOSIDES/DOCUSATE 8.6/50MG TABLET. PO SCH ×2 (09:41→21:26)
[2020-02-21] MEDS: ASCORBIC ACID 500 MG TABLET PO SCH (09:41)
[2020-02-21] MEDS: ENOXAPARIN 40 MG/0.4 ML SYRINGE. SQ SCH ×2 (09:42→21:26)
[2020-02-21] MEDS: NYSTATIN 100,000 UNITS/ML 5 ML ORAL.SUSP. SWSW SCH ×2 (09:42→23:45)
[2020-02-21 11:00] VITALS: BP 125/67
[2020-02-21 15:00] VITALS: BP 140/85
--- NOTE | 2020-02-21 15:26 | NUR ---
Wound Care Wound care follow up for skin tears to bilateral buttocks. Photo assessed as pt is COVID positive. Wounds are resolved. WC will sign off. Please reconsult if new wounds develop.
--- NOTE | 2020-02-21 17:28 | NUR ---
SW following. SW reviewed chart and spoke with RN. Discharge plan remains home with family and private pay 02 when stable. Pt not ready for discharge per Dr. Momin. SW to continue following.
[2020-02-21 19:00] VITALS: BP 118/76
--- NOTE | 2020-02-21 20:24 | NUR ---
PT TRANSFERRED ROOMS THIS SHIFT TO HAVE MORE ROOM TO WORK WITH THERAPY. SPOKE TO THE PTS FAMILY THIS SHIFT AND NOTIFIED THEM.
[2020-02-21] MEDS: FAMOTIDINE 20 MG TABLET. PO SCH (21:26)
[2020-02-21 23:14] VITALS: BP 131/75
[2020-02-22] VITALS (9 sets, daily range): BP systolic 109–140; BP diastolic 57–86
--- NOTE | 2020-02-22 08:10 | PDOC ---
PROGRESS NOTES Chief Complaint Chief Complaint Moderate right sided pneumothorax Oropharyngeal Dysphagiaimproved Critical care myopathyimproved Acute Hypoxic Respiratory Failure Secondary to COVID-19 and sepsis pneumonia multifocal pulmonary infiltrates.// follow-up to resolution. Morbid Obesity, BMI 44 HTN NORMOCYTIC ANEMIA severe protein-caloric malnutrition Critical care myopathy Continue with speech recommendations for regular diet and thickened liquids Continue PT OT who recommends acute rehab Appreciate pulmonary recommendations Continue with daily Solu-Medrol Continue with full dose Lovenox Titrate O2 therapy with goal of 88-92% Lovenox for DVT prophylaxis Regular diet Full code Discussed with RN and SW Dispo pending rehab vs home placement. Patient likely may be able to discharge home without any rehab or home O2 requirements. The patient was evaluated during the global COVID-19 pandemic, and that diagnosis was suspected/considered upon their initial presentation. Their evaluation, treatment and testing was consistent with current guidelines for patients who present with complaints or symptoms that may be related to COVID- 19. History of Present Illness History of Present Illness Ms Hackett is a 44-year-old female, who had been having fever and shortness of breath for about a week or so. The patient had outpatient COVID-19 done through [facility] on 01/13/2020 and was informed of positive results on 01/14/2020, which was positive and because of more shortness of breath, she decided to come in. The patient is requiring significant oxygen support. The patient denies any nausea, vomiting or diarrhea. Denies any other complaints other than shortness of breath. 01/31: very awake ealier on 10 versed, and IV fent, doing well on vent, discussed with RT, going down no Fi02 to 65% 02/01: weaning PEEP and oxygen a little, doing a little better, cont current 02/02: weaning slowly, no event, improving slowly 02/04: Still on vent, awake, trying to self extubate. D/w pulm to stay on vent, BiPAP. WBC 16.7 02/05: WBC down to 14.2, afebrile heart rate in 40s comfortable on vent overnight. When sedation was weaned she almost self extubated. ABG 7. 50/39/66 on 50% FiO2 PEEP of 5. 7/10: Extubated without event 02/10: Patient is doing better today. Still needs 6 to 7 L of O2 and saturating 90%. She did have one large bowel movement. Still pending speech evaluation. PT OT is working with the patient now. 02/11: Requiring 7 L nasal cannula O2. She is saturating 100%. Discussed with RN to titrate down on O2. Speech evaluated and patient is able to tolerate regular diet with thickened liquids. Patient is working well with PT OT. 02/13: Saturating 91% on 5 L nasal cannula. She is sitting up in bed and appears to have more energy compared to yesterday. She has been working with physical therapy 02/14: Saturating 95 to 97% on 5 L nasal cannula. She has more energy than yesterday and still on IV steroids. Patient is progressively improving each day. 02/15: Saturating 97% on 4 L nasal cannula. Patient continues to significantly improve 02/16: Afebrile, O2 sats 95% on 5 L nasal cannula. Seen on commode. She still having difficulty getting a deep breath, tries but she can't. Says she feels "mass mejor". 02/17: Afebrile. O2 saturation 94% on 6 L nasal cannula. States she is feeling better today. However she has conversational dyspnea and difficulty getting a deep breath. 02/18: Afebrile. O2 saturation 90% on 6 L nasal cannula. She worked with ENVIRONMENT[employer] PRO[employer]GER today and had significant aspirations with thin liquids. 02/19: Still on 6L NCO2. Afebrile. She states she feels better is able to work with PT to go to the restroom on her own and able to take 3 steps with standby assistance. Still very weak after that falls back into the chair. On a social note apparently during her extended hospital stay she has been evicted from her apartment. Afebrile on 5 L nasal cannulated oxygen 93%. She had her first bath today. Still weak with therapy. Unable to get her O2 needs down, still aspirating anything but thickened liquids. With increased right sided tympany in her upper chest wall CXR was obtained I have asked Pulmonology to see her again for PTX and hold anticoagulants for IR to place chest tube if possible. COVID-19 CRITERIA: The patient was evaluated during the global COVID-19 pandemic, and that diagnosis was suspected/considered upon their initial presentation. Their evaluation, treatment and testing was consistent with current guidelines for patients who present with complaints or symptoms that may be related to COVID-19. Vitals Vitals Vital Signs Date Time Temp Pulse Resp B/P (MAP) Pulse Ox O2 Delivery O2 Flow Rate FiO2 02/22/20 03:17 97.5 69 18 127/81 (96) 96 Nasal Cannula 6.0 97.5 Physical Exam Physical Exam GENERAL: Patient is alert and awake. NAD HEENT: Moist mucous membranes. No scleral icterus or obvious cervical lymphadenopathy CV: RRR. No murmurs rubs or gallops. Unable to appreciate S3 or S4 PULM: Bilaterally clear to auscultation. Chest expanding equally bilaterally without use of accessory muscles. Patient is able to expel good effort and cough ABD: Soft and nondistended on visualization and palpation. Normoactive bowel sounds heard. EXTREMITIES: No pedal edema seen. No warmth or tenderness upon touch. NEURO: Full ROM in all extremities. Patient has 3 out of 5 strength General: Other Heart: Regular rate Abdomen: Other Extremities: No cyanosis Skin: No breakdown Assessment and Plan Assessmemt and Plan Problems Medical Problems: (1) Pneumonia due to COVID-19 virus Status: Acute Comment Review of Relevant I have reviewed the following items stephon (where applicable) has been applied. Labs Laboratory Tests Test 02/21/20 06:25 White Blood Count 6.8 x10^3/uL (4.0-11.0) Red Blood Count 3.54 x10^6/uL (3.50-5.40) Hemoglobin 10.5 g/dL (12.0-15.5) Hematocrit 30.7 % (36.0-47.0) Mean Corpuscular Volume 87 fL (79-100) Mean Corpuscular Hemoglobin 30 pg (25-35) Mean Corpuscular Hemoglobin Concent 34 g/dL (31-37) Red Cell Distribution Width 17.8 % (11.5-14.5) Platelet Count 264 x10^3/uL (140-400) Neutrophils (%) (Auto) 68 % (31-73) Lymphocytes (%) (Auto) 18 % (24-48) Monocytes (%) (Auto) 8 % (0-9) Eosinophils (%) (Auto) 6 % (0-3) Basophils (%) (Auto) 1 % (0-3) Neutrophils # (Auto) 4.6 x10^3/uL (1.8-7.7) Lymphocytes # (Auto) 1.2 x10^3/uL (1.0-4.8) Monocytes # (Auto) 0.5 x10^3/uL (0.0-1.1) Eosinophils # (Auto) 0.4 x10^3/uL (0.0-0.7) Basophils # (Auto) 0.0 x10^3/uL (0.0-0.2) Sodium Level 143 mmol/L (136-145) Potassium Level 4.0 mmol/L (3.5-5.1) Chloride Level 106 mmol/L (98-107) Carbon Dioxide Level 33 mmol/L (21-32) Anion Gap 4 (6-14) Blood Urea Nitrogen 5 mg/dL (7-20) Creatinine 0.4 mg/dL (0.6-1.0) Estimated GFR (Cockcroft-Gault) 173.4 BUN/Creatinine Ratio 13 (6-20) Glucose Level 89 mg/dL (70-99) Calcium Level 8.1 mg/dL (8.5-10.1) Total Bilirubin 0.4 mg/dL (0.2-1.0) Aspartate Amino Transf (AST/SGOT) 20 U/L (15-37) Alanine Aminotransferase (ALT/SGPT) 31 U/L (14-59) Alkaline Phosphatase 61 U/L (46-116) Total Protein 6.1 g/dL (6.4-8.2) Albumin 2.7 g/dL (3.4-5.0) Albumin/Globulin Ratio 0.8 (1.0-1.7) Medications Current Medications Acetaminophen (Tylenol) 1,000 mg 1X ONCE PO Last administered on 01/21/20at 17:00; Start 01/21/20 at 17:00; Stop 01/21/20 at 17:01; Status DC Ondansetron HCl (Zofran) 4 mg PRN Q8HRS PRN IV NAUSEA/VOMITING; Start 01/21/20 at 18:00; Stop 01/22/20 at 07:55; Status DC Dexamethasone Sodium Phosphate (Decadron) 6 mg 1X ONCE IVP Last administered on 01/21/20at 18:14; Start 01/21/20 at 18:00; Stop 01/21/20 at 18:01; Status DC Ceftriaxone Sodium (Rocephin) 1 gm 1X ONCE IVP Last administered on 01/21/20at 18:14; Start 01/21/20 at 18:00; Stop 01/21/20 at 18:01; Status DC Azithromycin 500 mg/Sodium Chloride 250 ml @ 250 mls/hr Q24H IV Last administered on 01/25/20at 19:00; Start 01/22/20 at 19:00; Stop 01/26/20 at 09 :05; Status DC Azithromycin 250 ml @ 250 mls/hr 1X ONCE IV Last administered on 01/21/20at 18:25; Start 01/21/20 at 18:15; Stop 01/21/20 at 19:14; Status DC Dexamethasone Sodium Phosphate (Decadron) 6 mg DAILY IVP Last administered on 02/06/20at 09:17; Start 01/22/20 at 09:00; Stop 02/06/20 at 14:50; Status DC Ceftriaxone Sodium (Rocephin) 1 gm Q24H IVP Last administered on 01/29/20at 20:14; Start 01/22/20 at 20:00; Stop 01/30/20 at 16:07; Status DC Azithromycin 250 ml @ 250 mls/hr 1X ONCE IV ; Start 01/21/20 at 19:45; Stop 01/21/20 at 20:44; Status UNV Acetaminophen (Tylenol) 650 mg PRN Q6HRS PRN PO Headaches, Temp > 101.5' Last administered on 02/16/20at 10:06; Start 01/21/20 at 19:45 Ondansetron HCl (Zofran) 4 mg PRN Q6HRS PRN IVP NAUSEA/VOMITING; Start 01/21/20 at 19:45 Al Hydroxide/Mg Hydroxide (Mylanta Plus Xs) 30 ml PRN Q3HRS PRN PO HEARTBURN / GAS; Start 01/21/20 at 19:45 Famotidine (Pepcid) 20 mg BID PO Last administered on 02/05/20at 07:56; Start 01/21/20 at 21:00; Stop 02/05/20 at 20:05; Status DC Enoxaparin Sodium (Lovenox 40mg Syringe) 40 mg Q24H SQ Last administered on 01/21/20at 21:07; Start 01/21/20 at 20:00; Stop 01/22/20 at 10:45; Status DC Sodium Chloride (Normal Saline Flush) 3 ml QSHIFT PRN IV AFTER MEDS AND BLOOD DRAWS; Start 01/21/20 at 19:45 Senna/Docusate Sodium (Senna Plus) 1 tab BID PO Last administered on 02/21/20at 21:26; Start 01/21/20 at 21:00 Magnesium Hydroxide (Milk Of Magnesia) 2,400 mg PRN Q12HR PRN PO CONSTIPATION; Start 01/21/20 at 19:45 Sterile Water (WATER for RESP) 1,000 ml CONT PRN INH VIA VAPOTHERM DEVICE Last administered on 01/23/20at 12:46; Start 01/22/20 at 04:30; Stop 02/05/20 at 09:43; Status DC Lactobacillus Rhamnosus (Culturelle) 1 cap BID PO Last administered on 02/04/20at 07:15; Start 01/22/20 at 09:00; Stop 02/04/20 at 10:38; Status DC Non-Formulary Medication 1 ea/ Sodium Chloride 210 ml @ 420 mls/hr ONCE ONCE IV Last administered on 01/22/20at 10:44; Start 01/22/20 at 11:00; Stop 01/22/20 at 11:29; Status DC Non-Formulary Medication 1 ea/ Sodium Chloride 230 ml @ 460 mls/hr DAILY IV Last administered on 01/26/20at 09:58; Start 01/23/20 at 09:00; Stop 01/26/20 at 09:29; Status DC Enoxaparin Sodium (Lovenox 40mg Syringe) 40 mg BID SQ Last administered on 01/30/20at 20:39; Start 01/22/20 at 11:00; Stop 01/30/20 at 20:57; Status DC Lorazepam (Ativan Inj) 0.5 mg PRN Q4HRS PRN IVP ANXIETY / AGITATION 1ST CHOICE Last administered on 02/09/20at 02:13; Start 01/23/20 at 21:00; Stop 02/10/20 at 16:09; Status DC Lorazepam (Ativan Inj) 0.05 mg 1X ONCE IVP Last administered on 01/23/20at 21:13; Start 01/23/20 at 21:15; Stop 01/23/20 at 21:31; Status DC Fentanyl Citrate 30 ml @ 0 mls/hr CONT PRN IV SEE PROTOCOL Last administered on 02/01/20at 21:15; Start 01/23/20 at 22:45; Stop 02/02/20 at 02:27; Status DC Propofol 100 ml @ 0 mls/hr CONT PRN IV SEE PROTOCOL Last administered on 02/06/20at 04:59; Start 01/23/20 at 22:45; Stop 02/06/20 at 13:18; Status DC Midazolam HCl 100 ml @ 0 mls/hr CONT PRN IV SEE PROTOCOL Last administered on 02/04/20at 01:57; Start 01/23/20 at 22:45; Stop 02/06/20 at 13:18; Status DC Vecuronium [place] (Norcuron Bolus) 10 mg STK-MED ONCE IV ; Start 01/23/20 at 23:24; Stop 01/23/20 at 23:25; Status DC Vecuronium [place] (Norcuron Bolus) 60 mg 1X ONCE IV Last administered on 01/23/20at 23:30; Start 01/23/20 at 23:30; Stop 01/23/20 at 23:35; Status DC Norepinephrine Bitartrate 8 mg/ Dextrose 258 ml @ 20.666 mls/ hr CONT PRN IV PER PROTOCOL Last administered on 01/24/20at 12:28; Start 01/24/20 at 02:15; Stop 02/09/20 at 09:50; Status DC Vecuronium [place] (Norcuron Bolus) 6 mg PRN Q4HRS PRN IV SEDATION Last administered on 01/24/20at 15:40; Start 01/24/20 at 04:30; Stop 02/06/20 at 19:06; Status DC Succinylcholine Chloride (Anectine) 200 mg STK-MED ONCE .ROUTE ; Start 01/23/20 at 23:00; Stop 01/24/20 at 08:24; Status DC Etomidate (Amidate) 20 mg STK-MED ONCE IV ; Start 01/23/20 at 23:00; Stop 01/24/20 at 08:24; Status DC Ringer's Solution 1,000 ml @ 75 mls/hr [id number] IV Last administered on 01/25/20at 16:21; Start 01/24/20 at 12:30; Stop 01/26/20 at 09:17; Status DC Hydralazine HCl (Apresoline Inj) 10 mg PRN Q4HRS PRN IVP ELEVATED BP, SEE COMMENTS; Start 01/28/20 at 14:00 Heparin Sodium/ Dextrose 250 ml @ 17.6 mls/hr CONT PRN IV PER PROTOCOL Last administered on 02/05/20at 01:58; Start 01/30/20 at 21:00; Stop 02/05/20 at 20:07; Status DC Heparin Sodium (Porcine) (Heparin Sodium) 3,300 unit PRN Q6HRS PRN IV FOR UFH L EVEL LESS THAN 0.2; Start 01/30/20 at 21:00; Stop 02/06/20 at 16:22; Status DC Heparin Sodium (Porcine) (Heparin Sodium) 1,650 unit PRN Q6HRS PRN IV FOR UFH LEVEL 0.2 - 0.29 Last administered on 02/04/20at 15:13; Start 01/30/20 at 21:00; Stop 02/06/20 at 16:23; Status DC Heparin Sodium (Porcine) (Heparin Sodium) 8,700 unit 1X ONCE IV Last administered on 01/31/20at 08:20; Start 01/31/20 at 07:15; Stop 01/31/20 at 07:16; Status DC Fentanyl Citrate 55 ml @ 0 mls/hr CONT PRN PRN IV PAIN/SEDATION Last administered on 02/05/20at 02:06; Start 02/02/20 at 02:30; Stop 02/06/20 at 19:06; Status DC Nystatin (Nystatin Oral Susp) 5 ml BID SWSW Last administered on 02/21/20at 23:45; Start 02/02/20 at 09:00 Furosemide (Lasix) 40 mg 1X ONCE IVP Last administered on 02/04/20at 17:12; Start 02/04/20 at 16:00; Stop 02/04/20 at 16:01; Status DC Dexmedetomidine HCl 400 mcg/ Sodium Chloride 100 ml @ 0 mls/hr CONT PRN IV SEE COMMENTS Last administered on 02/06/20at 09:08; Start 02/05/20 at 07:30; Stop 02/09/20 at 09:49; Status DC Sodium Chloride 500 ml @ 500 mls/hr 1X PRN PRN IV ANXIETY / AGITATION; Start 02/05/20 at 07:30; Stop 02/10/20 at 11:01; Status DC Atropine Sulfate (ATROPINE 0.5mg SYRINGE) 0.5 mg PRN Q5MIN PRN IV SEE COMMENTS; Start 02/05/20 at 07:30; Stop 02/20/20 at 13:39; Status DC Info (Anti-Coagulation Monitoring By Pharmacy) 1 each PRN DAILY PRN MC SEE COMMENTS Last administered on 02/10/20at 15:26; Start 02/05/20 at 07:45; Stop 02/10/20 at 16:09; Status DC Famotidine (Pepcid Vial) 40 mg BID IVP Last administered on 02/13/20at 08:22; Start 02/05/20 at 21:00; Stop 02/13/20 at 10:05; Status DC Haloperidol Lactate (Haldol Inj) 5 mg PRN Q6HRS PRN IVP AGITATION (2ND CHOICE); Start 02/06/20 at 15:00; Stop 02/10/20 at 16:09; Status DC Methylprednisolone Sodium Succinate (SOLU-Medrol 40MG VIAL) 40 mg Q12HR IV Last administered on 02/10/20at 10:31; Start 02/06/20 at 21:00; Stop 02/10/20 at 16:09; Status DC Diphenhydramine HCl (Benadryl) 50 mg 1X ONCE IVP Last administered on 02/06/20at 18:42; Start 02/06/20 at 18:45; Stop 02/06/20 at 18:46; Status DC Sodium Chloride 1,000 ml @ 50 mls/hr 1X ONCE IV Last administered on 02/07/20at 10:15; Start 02/07/20 at 10:15; Stop 02/08/20 at 06:14; Status DC Heparin Sodium/ Dextrose 250 ml @ 15.776 mls/ hr CONT PRN IV PER PROTOCOL Last administered on 02/09/20at 20:36; Start 02/07/20 at 14:30; Stop 02/10/20 at 16:09; Status DC Heparin Sodium (Porcine) (Heparin Sodium) 2,950 unit PRN Q6HRS PRN IV FOR UFH LEVEL LESS THAN 0.2; Start 02/07/20 at 14:30; Stop 02/10/20 at 16:09; Status DC Heparin Sodium (Porcine) (Heparin Sodium) 1,500 unit PRN Q6HRS PRN IV FOR UFH LEVEL 0.2 - 0.29; Start 02/07/20 at 14:30; Stop 02/10/20 at 16:09; Status DC Bisacodyl (Dulcolax Supp) 10 mg 1X ONCE [place] ; Start 02/10/20 at 10:15; Stop 02/10/20 at 10:16; Status DC Dextrose/Sodium Chloride 1,000 ml @ 75 mls/hr [id number] IV Last administered on 02/17/20at 05:58; Start 02/10/20 at 14:00; Stop 02/17/20 at 12:28; Status DC Methylprednisolone Sodium Succinate (SOLU-Medrol 40MG VIAL) 40 mg DAILY IV Last administered on 02/13/20at 08:21; Start 02/11/20 at 09:00; Stop 02/13/20 at 17:14; Status DC Enoxaparin Sodium (Lovenox 40mg Syringe) 40 mg Q12HR SQ Last administered on 02/21/20at 21:26; Start 02/10/20 at 21:00 Famotidine (Pepcid) 20 mg QHS PO Last administered on 02/21/20at 21:26; Start 02/13/20 at 21:00 Ascorbic Acid (Vitamin C) 500 mg DAILY PO Last administered on 02/21/20at 09:41; Start 02/13/20 at 17:00 Thiamine Mononitrate (Vitamin B-1) 100 mg DAILY PO Last administered on 02/21/20at 09:41; Start 02/13/20 at 17:00 Fluticasone Propionate (Flonase) 2 spray DAILY NS Last administered on 02/21/20at 09:41; Start 02/15/20 at 09:00 Active Scripts Active Keflex (Cephalexin) 500 Mg Capsule 500 Mg PO QID 10 Days [place] 5-325 Tablet (Acetaminophen/Hydrocodone Bitart) 1 Each Tablet 1 Tab PO PRN Q6HRS PRN Vitals/I & O Vital Sign - Last 24 Hours 02/21/20 02/21/20 02/21/20 02/21/20 11:00 15:00 19:00 20:00 Temp 97.8 97.5 97.8 97.5 Pulse 66 75 76 Resp 20 20 B/P (MAP) 125/67 (86) 140/85 (103) 118/76 (90) Pulse Ox 94 99 96 O2 Delivery Nasal Cannula Nasal Cannula Nasal Cannula Nasal Cannula O2 Flow Rate 6.0 6.0 6.0 6.0 02/21/20 02/22/20 23:14 03:17 Temp 97.5 97.5 97.5 97.5 Pulse 62 69 Resp 18 18 B/P (MAP) 131/75 (93) 127/81 (96) Pulse Ox 96 96 O2 Delivery High Flow Nasal Cannula Nasal Cannula O2 Flow Rate 6.0 6.0 Justicifation of Admission Dx: Justifications for Admission: Justification of Admission Dx: Yes Respiratory Failure: Severe Resp Distress THA NOBLE MD Feb 22, 2020 08:10
[2020-02-22] MEDS: ENOXAPARIN 40 MG/0.4 ML SYRINGE. SQ SCH ×2 (09:00→21:00)
--- NOTE | 2020-02-22 10:20 | RAD ---
EXAM: Chest, single view. HISTORY: Covid 19. COMPARISON: 02/05/2020 FINDINGS: A frontal view of the chest obtained. There is a moderate right pneumothorax. There is a right subclavian central venous catheter with the tip in the right atrium. There is stable diffuse infiltrate. There is a stable cardiac silhouette. No pleural effusion is seen. There has been removal of an endotracheal tube and nasogastric tube. IMPRESSION: 1. Moderate right pneumothorax. 2. Stable diffuse infiltrate. 3. Right subclavian central venous catheter with the tip in the right atrium. Findings were discussed with Blanka, the nurse caring for the patient, at 1000 hours on 02/22/2020. Electronically signed by: Isabela Kearns MD (02/22/2020 10:17 AM) [id number]
--- NOTE | 2020-02-22 11:00 | PDOC ---
PULMONARY PROGRESS NOTES Subjective Patient weak not more short of air, has nasal congestion asked to see her again for PTX Vitals Vital Signs Date Time Temp Pulse Resp B/P (MAP) Pulse Ox O2 Delivery O2 Flow Rate FiO2 02/22/20 07:00 97.6 57 18 112/68 (83) 98 Nasal Cannula 6.0 97.6 Comments alert on 02 6 litres General: Alert, No acute distress Lungs: Clear Cardiovascular: S1 Abdomen: Soft Neuro Exam: Alert Extremities: No Edema Labs Laboratory Tests Test 02/21/20 06:25 White Blood Count 6.8 x10^3/uL (4.0-11.0) Red Blood Count 3.54 x10^6/uL (3.50-5.40) Hemoglobin 10.5 g/dL (12.0-15.5) Hematocrit 30.7 % (36.0-47.0) Mean Corpuscular Volume 87 fL (79-100) Mean Corpuscular Hemoglobin 30 pg (25-35) Mean Corpuscular Hemoglobin Concent 34 g/dL (31-37) Red Cell Distribution Width 17.8 % (11.5-14.5) Platelet Count 264 x10^3/uL (140-400) Neutrophils (%) (Auto) 68 % (31-73) Lymphocytes (%) (Auto) 18 % (24-48) Monocytes (%) (Auto) 8 % (0-9) Eosinophils (%) (Auto) 6 % (0-3) Basophils (%) (Auto) 1 % (0-3) Neutrophils # (Auto) 4.6 x10^3/uL (1.8-7.7) Lymphocytes # (Auto) 1.2 x10^3/uL (1.0-4.8) Monocytes # (Auto) 0.5 x10^3/uL (0.0-1.1) Eosinophils # (Auto) 0.4 x10^3/uL (0.0-0.7) Basophils # (Auto) 0.0 x10^3/uL (0.0-0.2) Sodium Level 143 mmol/L (136-145) Potassium Level 4.0 mmol/L (3.5-5.1) Chloride Level 106 mmol/L (98-107) Carbon Dioxide Level 33 mmol/L (21-32) Anion Gap 4 (6-14) Blood Urea Nitrogen 5 mg/dL (7-20) Creatinine 0.4 mg/dL (0.6-1.0) Estimated GFR (Cockcroft-Gault) 173.4 BUN/Creatinine Ratio 13 (6-20) Glucose Level 89 mg/dL (70-99) Calcium Level 8.1 mg/dL (8.5-10.1) Total Bilirubin 0.4 mg/dL (0.2-1.0) Aspartate Amino Transf (AST/SGOT) 20 U/L (15-37) Alanine Aminotransferase (ALT/SGPT) 31 U/L (14-59) Alkaline Phosphatase 61 U/L (46-116) Total Protein 6.1 g/dL (6.4-8.2) Albumin 2.7 g/dL (3.4-5.0) Albumin/Globulin Ratio 0.8 (1.0-1.7) Medications Active Scripts Medications Dose Route/Sig Max Daily Dose Days Date Category Keflex (Cephalexin) 500 Mg Capsule 500 Mg PO QID 10 06/20/18 Rx [place] 5-325 Tablet (Acetaminophen/Hydrocodone Bitart) 1 Each Tablet 1 Tab PO PRN Q6HRS PRN 06/20/18 Rx Comments CXR IMPRESSION: 1. Widespread airspace disease, not significantly changed. 2. Stable position of tubes and lines. Impression . IMPRESSION: 1. Acute hypoxic respiratory failure secondary to COVID-19 pneumonia and sepsis. intubated 01/24/20, extubated on 02/05 2. Abnormal chest x-ray with bilateral patchy infiltrates compatible with COVID-19 pneumonia. Now with moderate right PTX, likely related to COVID 3. Underlying obesity. ? ernesto 4. Hypertension 5. Hypotension- resolved 6, COVID-19 sepsis--improved Status post convalescent serum 01/22 8. Critical care myopathy , improved Plan . d/w RN and patient/ IR clinically O2 needs are stable on 6 liters. will benefit from chest tube. d/w Dr Funes Extubated 02/05 Lovenox on hold repeat covid test PT/INR discussed w MIKE Turcios MD Feb 22, 2020 11:00
[2020-02-22 12:28] LABS: BASO # 0.1 x10^3/uL (0.0-0.2); BASO % 1 % (0-3); EOS # 0.4 x10^3/uL (0.0-0.7); EOS % 6 % (0-3); HEMATOCRIT 32.8 % (36.0-47.0); HEMOGLOBIN 11.2 g/dL (12.0-15.5); LYMPH # 1.1 x10^3/uL (1.0-4.8); LYMPH % 17 % (24-48); MEAN CORPUSCULAR HEMOGLOBIN 30 pg (25-35); MEAN CORPUSCULAR HGB CONC 34 g/dL (31-37); MEAN CORPUSCULAR VOLUME 87 fL (79-100); MONO # 0.5 x10^3/uL (0.0-1.1); MONO % 8 % (0-9); NEUT # 4.5 x10^3/uL (1.8-7.7); NEUT % 68 % (31-73); PLATELET COUNT 307 x10^3/uL (140-400); RED BLOOD COUNT 3.78 x10^6/uL (3.50-5.40); RED CELL DISTRIBUTION WIDTH 17.5 % (11.5-14.5); WHITE BLOOD COUNT 6.6 x10^3/uL (4.0-11.0)
[2020-02-22 12:35] LABS: CALCIUM 8.5 mg/dL (8.5-10.1); CREATININE 0.6 mg/dL (0.6-1.0); GFR 108.6; POTASSIUM 4.1 mmol/L (3.5-5.1)
[2020-02-22 12:38] LABS: PROTHROMBIN TIME PATIENT 13.1 SEC (11.7-14.0)
[2020-02-22] MEDS ORDERED: LIDOCAINE WITH 8.4% SOD BICARB 3 ML DISP.SYRIN. ONE (12:42)
[2020-02-22] MEDS ORDERED: LIDOCAINE WITH 8.4% SOD BICARB 3 ML DISP.SYRIN. IJ ONE (13:30)
--- NOTE | 2020-02-22 13:33 | NUR ---
Patient to IR/CT 2f or chest tube placement. 10fr pigtail chest tube placed right anterior upper chest with lidocaine, no sedation. Patient tolerated well with no issues. Report called to LIAN Moscoso and patient transferred back to [address] [place] [address].
[2020-02-22] MEDS: ASCORBIC ACID 500 MG TABLET PO SCH (14:38)
[2020-02-22] MEDS: SENNOSIDES/DOCUSATE 8.6/50MG TABLET. PO SCH ×2 (14:38→21:04)
[2020-02-22] MEDS: NYSTATIN 100,000 UNITS/ML 5 ML ORAL.SUSP. SWSW SCH (14:38)
[2020-02-22] MEDS: THIAMINE 100 MG TABLET. PO SCH (14:38)
[2020-02-22] MEDS: FLUTICASONE 50MCG/NASAL SPRAY 16GM BOTTLE. NS SCH (14:39)
[2020-02-22] MEDS: ACETAMINOPHEN 325 MG TABLET. PO PRN (17:37)
[2020-02-22] MEDS: FAMOTIDINE 20 MG TABLET. PO SCH (21:04)
[2020-02-23 03:32] VITALS: BP 126/68
[2020-02-23 07:53] VITALS: BP 111/65
[2020-02-23] MEDS: FLUTICASONE 50MCG/NASAL SPRAY 16GM BOTTLE. NS SCH (07:56)
[2020-02-23] MEDS: SENNOSIDES/DOCUSATE 8.6/50MG TABLET. PO SCH ×2 (07:57→21:11)
[2020-02-23] MEDS: ENOXAPARIN 40 MG/0.4 ML SYRINGE. SQ SCH ×2 (07:58→21:12)
[2020-02-23] MEDS: ACETAMINOPHEN 325 MG TABLET. PO PRN (07:58)
[2020-02-23] MEDS: THIAMINE 100 MG TABLET. PO SCH (07:58)
[2020-02-23] MEDS: ASCORBIC ACID 500 MG TABLET PO SCH (07:58)
--- NOTE | 2020-02-23 09:45 | RAD ---
EXAM: Chest, single view. HISTORY: Chest tube placement COMPARISON: 02/22/2020 FINDINGS: A frontal view of the chest obtained. There has been placement of a right pleural drainage catheter and near complete resolution of the previously demonstrated right pneumothorax. There is a suspected tiny residual pneumothorax. There is diffuse bilateral lung infiltrate, stable in appearance. There is a stable cardiac silhouette. There is a right subclavian catheter with the tip in the superior right atrium. IMPRESSION: 1. Interval right pleural drainage catheter placement in near complete resolution of the previously demonstrated pneumothorax. There may be a tiny residual right pneumothorax. 2. Stable diffuse infiltrate. Electronically signed by: Isabela Kearns MD (02/23/2020 9:42 AM) [id number]
--- NOTE | 2020-02-23 10:53 | PDOC ---
PULMONARY PROGRESS NOTES Subjective Patient with no short of air, s/p right chest tube for PTX Vitals Vital Signs Date Time Temp Pulse Resp B/P (MAP) Pulse Ox O2 Delivery O2 Flow Rate FiO2 02/23/20 08:00 Nasal Cannula 6.0 02/23/20 07:53 97.5 78 20 111/65 (80) 90 97.5 Comments alert on 02 6 litres General: Alert, No acute distress Lungs: Clear Cardiovascular: S1 Abdomen: Soft Neuro Exam: Alert Extremities: No Edema Labs Laboratory Tests Test 02/22/20 12:00 White Blood Count 6.6 x10^3/uL (4.0-11.0) Red Blood Count 3.78 x10^6/uL (3.50-5.40) Hemoglobin 11.2 g/dL (12.0-15.5) Hematocrit 32.8 % (36.0-47.0) Mean Corpuscular Volume 87 fL (79-100) Mean Corpuscular Hemoglobin 30 pg (25-35) Mean Corpuscular Hemoglobin Concent 34 g/dL (31-37) Red Cell Distribution Width 17.5 % (11.5-14.5) Platelet Count 307 x10^3/uL (140-400) Neutrophils (%) (Auto) 68 % (31-73) Lymphocytes (%) (Auto) 17 % (24-48) Monocytes (%) (Auto) 8 % (0-9) Eosinophils (%) (Auto) 6 % (0-3) Basophils (%) (Auto) 1 % (0-3) Neutrophils # (Auto) 4.5 x10^3/uL (1.8-7.7) Lymphocytes # (Auto) 1.1 x10^3/uL (1.0-4.8) Monocytes # (Auto) 0.5 x10^3/uL (0.0-1.1) Eosinophils # (Auto) 0.4 x10^3/uL (0.0-0.7) Basophils # (Auto) 0.1 x10^3/uL (0.0-0.2) Prothrombin Time 13.1 SEC (11.7-14.0) Prothromb Time International Ratio 1.0 (0.8-1.1) Sodium Level 140 mmol/L (136-145) Potassium Level 4.1 mmol/L (3.5-5.1) Chloride Level 104 mmol/L (98-107) Carbon Dioxide Level 30 mmol/L (21-32) Anion Gap 6 (6-14) Blood Urea Nitrogen 5 mg/dL (7-20) Creatinine 0.6 mg/dL (0.6-1.0) Estimated GFR (Cockcroft-Gault) 108.6 Glucose Level 123 mg/dL (70-99) Calcium Level 8.5 mg/dL (8.5-10.1) Laboratory Tests Test 02/22/20 12:00 White Blood Count 6.6 x10^3/uL (4.0-11.0) Red Blood Count 3.78 x10^6/uL (3.50-5.40) Hemoglobin 11.2 g/dL (12.0-15.5) Hematocrit 32.8 % (36.0-47.0) Mean Corpuscular Volume 87 fL (79-100) Mean Corpuscular Hemoglobin 30 pg (25-35) Mean Corpuscular Hemoglobin Concent 34 g/dL (31-37) Red Cell Distribution Width 17.5 % (11.5-14.5) Platelet Count 307 x10^3/uL (140-400) Neutrophils (%) (Auto) 68 % (31-73) Lymphocytes (%) (Auto) 17 % (24-48) Monocytes (%) (Auto) 8 % (0-9) Eosinophils (%) (Auto) 6 % (0-3) Basophils (%) (Auto) 1 % (0-3) Neutrophils # (Auto) 4.5 x10^3/uL (1.8-7.7) Lymphocytes # (Auto) 1.1 x10^3/uL (1.0-4.8) Monocytes # (Auto) 0.5 x10^3/uL (0.0-1.1) Eosinophils # (Auto) 0.4 x10^3/uL (0.0-0.7) Basophils # (Auto) 0.1 x10^3/uL (0.0-0.2) Prothrombin Time 13.1 SEC (11.7-14.0) Prothromb Time International Ratio 1.0 (0.8-1.1) Sodium Level 140 mmol/L (136-145) Potassium Level 4.1 mmol/L (3.5-5.1) Chloride Level 104 mmol/L (98-107) Carbon Dioxide Level 30 mmol/L (21-32) Anion Gap 6 (6-14) Blood Urea Nitrogen 5 mg/dL (7-20) Creatinine 0.6 mg/dL (0.6-1.0) Estimated GFR (Cockcroft-Gault) 108.6 Glucose Level 123 mg/dL (70-99) Calcium Level 8.5 mg/dL (8.5-10.1) Medications Active Scripts Medications Dose Route/Sig Max Daily Dose Days Date Category Keflex (Cephalexin) 500 Mg Capsule 500 Mg PO QID 10 06/20/18 Rx [place] 5-325 Tablet (Acetaminophen/Hydrocodone Bitart) 1 Each Tablet 1 Tab PO PRN Q6HRS PRN 06/20/18 Rx Comments CXR IMPRESSION:02/22 PTX resolved bilateral infiltrates Impression . IMPRESSION: 1. Acute hypoxic respiratory failure secondary to COVID-19 pneumonia and sepsis. intubated 01/24/20, extubated on 02/05 2. Abnormal chest x-ray with bilateral patchy infiltrates compatible with COVID-19 pneumonia. Now with moderate right PTX, likely related to COVID 3. Underlying obesity. ? ernesto 4. Hypertension 5. Hypotension- resolved 6, COVID-19 sepsis--improved Status post convalescent serum 01/22 8. Critical care myopathy , improved Plan . d/w RN and patients daughter clinically O2 needs are stable on 6 liters. s/p right chest tube. No air leak, resolved PTX monitor cxr Extubated 02/05 Lovenox on hold repeat covid test P discussed w rn MIKE OCHOA MD Feb 23, 2020 10:53
--- NOTE | 2020-02-23 11:19 | PDOC ---
[facility] [facility] PROGRESS NOTE Chief Complaint Chief Complaint Moderate right sided pneumothorax - s/p chest tube placement Oropharyngeal Dysphagiaimproved Critical care myopathyimproved Acute Hypoxic Respiratory Failure Secondary to COVID-19 and sepsis pneumonia multifocal pulmonary infiltrates.// follow-up to resolution. Morbid Obesity, BMI 44 HTN NORMOCYTIC ANEMIA severe protein-caloric malnutrition Critical care myopathy Continue with speech recommendations for regular diet and thickened liquids Continue PT OT who recommends acute rehab Appreciate pulmonary recommendations Continue with daily Solu-Medrol Continue with full dose Lovenox Titrate O2 therapy with goal of 88-92% Lovenox for DVT prophylaxis Regular diet Full code Discussed with RN and SW Dispo pending rehab vs home placement. Patient likely may be able to discharge home without any rehab or home O2 requirements. The patient was evaluated during the global COVID-19 pandemic, and that diagnosis was suspected/considered upon their initial presentation. Their evaluation, treatment and testing was consistent with current guidelines for patients who present with complaints or symptoms that may be related to COVID- 19. History of Present Illness History of Present Illness Ms Hackett is a 44-year-old female, who had been having fever and shortness of breath for about a week or so. The patient had outpatient COVID-19 done through [facility] on 01/13/2020 and was informed of positive results on 01/14/2020, which was positive and because of more shortness of breath, she decided to come in. The patient is requiring significant oxygen support. The patient denies any nausea, vomiting or diarrhea. Denies any other complaints other than shortness of breath. 01/31: very awake ealier on 10 versed, and IV fent, doing well on vent, discussed with RT, going down no Fi02 to 65% 02/01: weaning PEEP and oxygen a little, doing a little better, cont current 02/02: weaning slowly, no event, improving slowly 02/04: Still on vent, awake, trying to self extubate. D/w pulm to stay on vent, BiPAP. WBC 16.7 02/05: WBC down to 14.2, afebrile heart rate in 40s comfortable on vent overnight. When sedation was weaned she almost self extubated. ABG 7. 50/39/66 on 50% FiO2 PEEP of 5. 7/10: Extubated without event 02/10: Patient is doing better today. Still needs 6 to 7 L of O2 and saturating 90%. She did have one large bowel movement. Still pending speech evaluation. PT OT is working with the patient now. 02/11: Requiring 7 L nasal cannula O2. She is saturating 100%. Discussed with RN to titrate down on O2. Speech evaluated and patient is able to tolerate regular diet with thickened liquids. Patient is working well with PT OT. 02/13: Saturating 91% on 5 L nasal cannula. She is sitting up in bed and appears to have more energy compared to yesterday. She has been working with physical therapy 02/14: Saturating 95 to 97% on 5 L nasal cannula. She has more energy than yesterday and still on IV steroids. Patient is progressively improving each day. 02/15: Saturating 97% on 4 L nasal cannula. Patient continues to significantly improve 02/16: Afebrile, O2 sats 95% on 5 L nasal cannula. Seen on commode. She still having difficulty getting a deep breath, tries but she can't. Says she feels "mass mejor". 02/17: Afebrile. O2 saturation 94% on 6 L nasal cannula. States she is feeling better today. However she has conversational dyspnea and difficulty getting a d eep breath. 02/18: Afebrile. O2 saturation 90% on 6 L nasal cannula. She worked with TRANSPORTATION SPECIALIST today and had significant aspirations with thin liquids. 02/19: Still on 6L NCO2. Afebrile. Able to work with PT to go to the restroom on her own and able to take 3 steps with standby assistance. Still very weak after that falls back into the chair. On a social note apparently during her extended hospital stay she has been evicted from her apartment. 02/20: Afebrile on 5 L nasal cannulated oxygen 93%. She had her first bath today. 02/21: Right sided pneumothorax s/p chest tube. CXR with near resolution of PTX with chest tube, still with diffuse bilateral infiltrates. Afebrile. Labs stable. Breathing improved. Chest wall pain at chest tube insertion site. O2 saturations 96% on 3 L during my examination. Plan: Repeat chest x-ray in a.m. may be able to remove the chest tube as she has no air leak could get a repeat chest x-ray after that and possibly go home with home O2. Would be appropriate for her to have TRANSPORTATION SPECIALIST reevaluation as she did continue to have some aspirations with thin liquids and she continues to ask for thin liquids. COVID-19 CRITERIA: The patient was evaluated during the global COVID-19 pandemic, and that diagnosis was suspected/considered upon their initial presentation. Their evaluation, treatment and testing was consistent with current guidelines for patients who present with complaints or symptoms that may be related to COVID-19. Vitals/I&O Vitals/I&O: Vital Signs Date Time Temp Pulse Resp B/P (MAP) Pulse Ox O2 Delivery O2 Flow Rate FiO2 02/23/20 08:00 Nasal Cannula 6.0 02/23/20 07:53 97.5 78 20 111/65 (80) 90 97.5 I & O 02/22/20 02/22/20 02/23/20 14:59 22:59 06:59 Intake Total 660 ml 110 ml Output Total 35 ml 10 ml Balance 625 ml 100 ml Physical Exam Physical Exam: GENERAL: Patient is alert and awake. NAD HEENT: Moist mucous membranes. No scleral icterus or obvious cervical lymphadenopathy CV: RRR. No murmurs rubs or gallops. Unable to appreciate S3 or S4 PULM: Bilaterally clear to auscultation. Chest expanding equally bilaterally without use of accessory muscles. Patient is able to expel good effort and cough ABD: Soft and nondistended on visualization and palpation. Normoactive bowel sounds heard. EXTREMITIES: No pedal edema seen. No warmth or tenderness upon touch. NEURO: Full ROM in all extremities. Patient has 3 out of 5 strength General: Other Heart: Regular rate Lungs: Clear Abdomen: Other Extremities: No cyanosis Skin: No breakdown Labs Labs: Laboratory Tests Test 02/22/20 12:00 White Blood Count 6.6 x10^3/uL (4.0-11.0) Red Blood Count 3.78 x10^6/uL (3.50-5.40) Hemoglobin 11.2 g/dL (12.0-15.5) Hematocrit 32.8 % (36.0-47.0) Mean Corpuscular Volume 87 fL (79-100) Mean Corpuscular Hemoglobin 30 pg (25-35) Mean Corpuscular Hemoglobin Concent 34 g/dL (31-37) Red Cell Distribution Width 17.5 % (11.5-14.5) Platelet Count 307 x10^3/uL (140-400) Neutrophils (%) (Auto) 68 % (31-73) Lymphocytes (%) (Auto) 17 % (24-48) Monocytes (%) (Auto) 8 % (0-9) Eosinophils (%) (Auto) 6 % (0-3) Basophils (%) (Auto) 1 % (0-3) Neutrophils # (Auto) 4.5 x10^3/uL (1.8-7.7) Lymphocytes # (Auto) 1.1 x10^3/uL (1.0-4.8) Monocytes # (Auto) 0.5 x10^3/uL (0.0-1.1) Eosinophils # (Auto) 0.4 x10^3/uL (0.0-0.7) Basophils # (Auto) 0.1 x10^3/uL (0.0-0.2) Prothrombin Time 13.1 SEC (11.7-14.0) Prothromb Time International Ratio 1.0 (0.8-1.1) Sodium Level 140 mmol/L (136-145) Potassium Level 4.1 mmol/L (3.5-5.1) Chloride Level 104 mmol/L (98-107) Carbon Dioxide Level 30 mmol/L (21-32) Anion Gap 6 (6-14) Blood Urea Nitrogen 5 mg/dL (7-20) Creatinine 0.6 mg/dL (0.6-1.0) Estimated GFR (Cockcroft-Gault) 108.6 Glucose Level 123 mg/dL (70-99) Calcium Level 8.5 mg/dL (8.5-10.1) Assessment and Plan Assessmemt and Plan Problems Medical Problems: (1) Pneumonia due to COVID-19 virus Status: Acute Comment Review of Relevant I have reviewed the following items stephon (where applicable) has been applied. Medications: Current Medications Medications (Trade) Dose Ordered Sig/Wei Route PRN Reason Start Time Stop Time Status Last Admin Dose Admin Lidocaine HCl (Buffered Lidocaine 1%) 3 ml 1X ONCE IJ 02/22/20 13:30 02/22/20 13:31 DC 02/22/20 13:30 Justicifation of Admission Dx: Justifications for Admission: Justification of Admission Dx: Yes Respiratory Failure: Severe Resp Distress THA NOBLE MD Feb 23, 2020 11:19
[2020-02-23 11:31] VITALS: BP 130/71
[2020-02-23 15:15] VITALS: BP 115/72
[2020-02-23 19:57] VITALS: BP 105/85
[2020-02-23] MEDS: FAMOTIDINE 20 MG TABLET. PO SCH (21:12)
[2020-02-23 23:17] VITALS: BP 133/75
[2020-02-24 03:43] VITALS: BP 129/73
[2020-02-24 06:51] LABS: BASO # 0.1 x10^3/uL (0.0-0.2); BASO % 1 % (0-3); EOS # 0.2 x10^3/uL (0.0-0.7); EOS % 3 % (0-3); HEMATOCRIT 32.3 % (36.0-47.0); HEMOGLOBIN 10.9 g/dL (12.0-15.5); LYMPH % 15 % (24-48); MEAN CORPUSCULAR HEMOGLOBIN 29 pg (25-35); MEAN CORPUSCULAR HGB CONC 34 g/dL (31-37); MEAN CORPUSCULAR VOLUME 86 fL (79-100); MONO # 0.5 x10^3/uL (0.0-1.1); MONO % 7 % (0-9); NEUT # 4.9 x10^3/uL (1.8-7.7); NEUT % 75 % (31-73); PLATELET COUNT 284 x10^3/uL (140-400); RED BLOOD COUNT 3.75 x10^6/uL (3.50-5.40); RED CELL DISTRIBUTION WIDTH 16.9 % (11.5-14.5); WHITE BLOOD COUNT 6.6 x10^3/uL (4.0-11.0)
[2020-02-24 07:00] VITALS: BP 137/82
[2020-02-24 07:13] LABS: ALBUMIN 2.8 g/dL (3.4-5.0); ALBUMIN/GLOBULIN RATIO 0.8 (1.0-1.7); CALCIUM 8.4 mg/dL (8.5-10.1); CREATININE 0.5 mg/dL (0.6-1.0); POTASSIUM 3.7 mmol/L (3.5-5.1); TOTAL BILIRUBIN 0.3 mg/dL (0.2-1.0); TOTAL PROTEIN 6.2 g/dL (6.4-8.2)
[2020-02-24] MEDS: FLUTICASONE 50MCG/NASAL SPRAY 16GM BOTTLE. NS SCH (09:00)
--- NOTE | 2020-02-24 09:36 | RAD ---
PORTABLE CHEST 1V INDICATION: Reason: PTX / Spl. Instructions: / History: . COMPARISON STUDY: 02/23/2020. FINDINGS: Life Support Devices: Stable right pleural catheter. Stable right subclavian central venous catheter. Lungs: Low lung volume. Stable bilateral perihilar and basilar heterogeneous opacities. Pleura: No pleural effusion or pneumothorax. Heart and Mediastinum: Stable cardiomediastinal silhouette and great vessels. IMPRESSION: 1. Stable right pleural catheter. No pneumothorax is seen. 2. Stable bilateral perihilar and basilar opacities. Electronically signed by: Adarsh Isaacs MD (02/24/2020 9:33 AM) [id number]
[2020-02-24] MEDS: SENNOSIDES/DOCUSATE 8.6/50MG TABLET. PO SCH ×2 (09:37→22:00)
[2020-02-24] MEDS: ASCORBIC ACID 500 MG TABLET PO SCH (09:37)
[2020-02-24] MEDS: THIAMINE 100 MG TABLET. PO SCH (09:38)
[2020-02-24] MEDS: ENOXAPARIN 40 MG/0.4 ML SYRINGE. SQ SCH ×2 (09:39→22:00)
[2020-02-24 11:21] VITALS: BP 107/72
--- NOTE | 2020-02-24 11:34 | PDOC ---
PULMONARY PROGRESS NOTES Subjective Patient with no short of air, s/p right chest tube for PTX Vitals Vital Signs Date Time Temp Pulse Resp B/P (MAP) Pulse Ox O2 Delivery O2 Flow Rate FiO2 02/24/20 11:21 98.5 74 16 107/72 (84) 95 Room Air 98.5 02/23/20 20:00 3.0 Comments alert on 02 6 litres General: Alert, No acute distress Lungs: Clear Cardiovascular: S1 Abdomen: Soft Neuro Exam: Alert Extremities: No Edema Labs Laboratory Tests Test 02/22/20 12:00 02/24/20 06:40 White Blood Count 6.6 x10^3/uL (4.0-11.0) 6.6 x10^3/uL (4.0-11.0) Red Blood Count 3.78 x10^6/uL (3.50-5.40) 3.75 x10^6/uL (3.50-5.40) Hemoglobin 11.2 g/dL (12.0-15.5) 10.9 g/dL (12.0-15.5) Hematocrit 32.8 % (36.0-47.0) 32.3 % (36.0-47.0) Mean Corpuscular Volume 87 fL (79-100) 86 fL (79-100) Mean Corpuscular Hemoglobin 30 pg (25-35) 29 pg (25-35) Mean Corpuscular Hemoglobin Concent 34 g/dL (31-37) 34 g/dL (31-37) Red Cell Distribution Width 17.5 % (11.5-14.5) 16.9 % (11.5-14.5) Platelet Count 307 x10^3/uL (140-400) 284 x10^3/uL (140-400) Neutrophils (%) (Auto) 68 % (31-73) 75 % (31-73) Lymphocytes (%) (Auto) 17 % (24-48) 15 % (24-48) Monocytes (%) (Auto) 8 % (0-9) 7 % (0-9) Eosinophils (%) (Auto) 6 % (0-3) 3 % (0-3) Basophils (%) (Auto) 1 % (0-3) 1 % (0-3) Neutrophils # (Auto) 4.5 x10^3/uL (1.8-7.7) 4.9 x10^3/uL (1.8-7.7) Lymphocytes # (Auto) 1.1 x10^3/uL (1.0-4.8) 1.0 x10^3/uL (1.0-4.8) Monocytes # (Auto) 0.5 x10^3/uL (0.0-1.1) 0.5 x10^3/uL (0.0-1.1) Eosinophils # (Auto) 0.4 x10^3/uL (0.0-0.7) 0.2 x10^3/uL (0.0-0.7) Basophils # (Auto) 0.1 x10^3/uL (0.0-0.2) 0.1 x10^3/uL (0.0-0.2) Prothrombin Time 13.1 SEC (11.7-14.0) Prothromb Time International Ratio 1.0 (0.8-1.1) Sodium Level 140 mmol/L (136-145) 144 mmol/L (136-145) Potassium Level 4.1 mmol/L (3.5-5.1) 3.7 mmol/L (3.5-5.1) Chloride Level 104 mmol/L (98-107) 107 mmol/L (98-107) Carbon Dioxide Level 30 mmol/L (21-32) 31 mmol/L (21-32) Anion Gap 6 (6-14) 6 (6-14) Blood Urea Nitrogen 5 mg/dL (7-20) 4 mg/dL (7-20) Creatinine 0.6 mg/dL (0.6-1.0) 0.5 mg/dL (0.6-1.0) Estimated GFR (Cockcroft-Gault) 108.6 134.0 Glucose Level 123 mg/dL (70-99) 92 mg/dL (70-99) Calcium Level 8.5 mg/dL (8.5-10.1) 8.4 mg/dL (8.5-10.1) BUN/Creatinine Ratio 8 (6-20) Total Bilirubin 0.3 mg/dL (0.2-1.0) Aspartate Amino Transf (AST/SGOT) 17 U/L (15-37) Alanine Aminotransferase (ALT/SGPT) 26 U/L (14-59) Alkaline Phosphatase 62 U/L (46-116) Total Protein 6.2 g/dL (6.4-8.2) Albumin 2.8 g/dL (3.4-5.0) Albumin/Globulin Ratio 0.8 (1.0-1.7) Laboratory Tests Test 02/24/20 06:40 White Blood Count 6.6 x10^3/uL (4.0-11.0) Red Blood Count 3.75 x10^6/uL (3.50-5.40) Hemoglobin 10.9 g/dL (12.0-15.5) Hematocrit 32.3 % (36.0-47.0) Mean Corpuscular Volume 86 fL (79-100) Mean Corpuscular Hemoglobin 29 pg (25-35) Mean Corpuscular Hemoglobin Concent 34 g/dL (31-37) Red Cell Distribution Width 16.9 % (11.5-14.5) Platelet Count 284 x10^3/uL (140-400) Neutrophils (%) (Auto) 75 % (31-73) Lymphocytes (%) (Auto) 15 % (24-48) Monocytes (%) (Auto) 7 % (0-9) Eosinophils (%) (Auto) 3 % (0-3) Basophils (%) (Auto) 1 % (0-3) Neutrophils # (Auto) 4.9 x10^3/uL (1.8-7.7) Lymphocytes # (Auto) 1.0 x10^3/uL (1.0-4.8) Monocytes # (Auto) 0.5 x10^3/uL (0.0-1.1) Eosinophils # (Auto) 0.2 x10^3/uL (0.0-0.7) Basophils # (Auto) 0.1 x10^3/uL (0.0-0.2) Sodium Level 144 mmol/L (136-145) Potassium Level 3.7 mmol/L (3.5-5.1) Chloride Level 107 mmol/L (98-107) Carbon Dioxide Level 31 mmol/L (21-32) Anion Gap 6 (6-14) Blood Urea Nitrogen 4 mg/dL (7-20) Creatinine 0.5 mg/dL (0.6-1.0) Estimated GFR (Cockcroft-Gault) 134.0 BUN/Creatinine Ratio 8 (6-20) Glucose Level 92 mg/dL (70-99) Calcium Level 8.4 mg/dL (8.5-10.1) Total Bilirubin 0.3 mg/dL (0.2-1.0) Aspartate Amino Transf (AST/SGOT) 17 U/L (15-37) Alanine Aminotransferase (ALT/SGPT) 26 U/L (14-59) Alkaline Phosphatase 62 U/L (46-116) Total Protein 6.2 g/dL (6.4-8.2) Albumin 2.8 g/dL (3.4-5.0) Albumin/Globulin Ratio 0.8 (1.0-1.7) Medications Active Scripts Medications Dose Route/Sig Max Daily Dose Days Date Category Keflex (Cephalexin) 500 Mg Capsule 500 Mg PO QID 10 06/20/18 Rx [place] 5-325 Tablet (Acetaminophen/Hydrocodone Bitart) 1 Each Tablet 1 Tab PO PRN Q6HRS PRN 06/20/18 Rx Comments CXR IMPRESSION:02/23 PTX resolved bilateral infiltrates Impression . IMPRESSION: 1. Acute hypoxic respiratory failure secondary to COVID-19 pneumonia and sepsis. intubated 01/24/20, extubated on 02/05 2. Abnormal chest x-ray with bilateral patchy infiltrates compatible with COVID-19 pneumonia. Now with moderate right PTX, likely related to COVID 3. Underlying obesity. ? ernesto 4. Hypertension 5. Hypotension- resolved 6, COVID-19 sepsis--improved Status post convalescent serum 01/22 8. Critical care myopathy , improved Plan . d/w RN and patients daughter clinically O2 needs are stable on 6 liters. s/p right chest tube. No air leak, resolved PTX will clamp chest tube for 24 hrs and remove it in am monitor cxr Extubated 02/05 Lovenox on hold repeat covid test P discussed w rn MIKE OCHOA MD Feb 24, 2020 11:34
--- NOTE | 2020-02-24 12:19 | PDOC ---
[facility] [facility] PROGRESS NOTE Chief Complaint Chief Complaint Moderate right sided pneumothorax - s/p chest tube placement Oropharyngeal Dysphagiaimproved Critical care myopathyimproved Acute Hypoxic Respiratory Failure Secondary to COVID-19 and sepsis pneumonia multifocal pulmonary infiltrates.// follow-up to resolution. Morbid Obesity, BMI 44 HTN NORMOCYTIC ANEMIA severe protein-caloric malnutrition Critical care myopathy Continue with speech recommendations for regular diet and thickened liquids Continue PT OT who recommends acute rehab Appreciate pulmonary recommendations Continue with daily Solu-Medrol Continue with full dose Lovenox Titrate O2 therapy with goal of 88-92% Lovenox for DVT prophylaxis Regular diet Full code Discussed with RN and SW Dispo pending rehab vs home placement. Patient likely may be able to discharge home without any rehab or home O2 requirements. The patient was evaluated during the global COVID-19 pandemic, and that diagnosis was suspected/considered upon their initial presentation. Their evaluation, treatment and testing was consistent with current guidelines for patients who present with complaints or symptoms that may be related to COVID- 19. History of Present Illness History of Present Illness Ms Hackett is a 44-year-old female, who had been having fever and shortness of breath for about a week or so. The patient had outpatient COVID-19 done through [facility] on 01/13/2020 and was informed of positive results on 01/14/2020, which was positive and because of more shortness of breath, she decided to come in. The patient is requiring significant oxygen support. The patient denies any nausea, vomiting or diarrhea. Denies any other complaints other than shortness of breath. 01/31: very awake ealier on 10 versed, and IV fent, doing well on vent, discussed with RT, going down no Fi02 to 65% 02/01: weaning PEEP and oxygen a little, doing a little better, cont current 02/02: weaning slowly, no event, improving slowly 02/04: Still on vent, awake, trying to self extubate. D/w pulm to stay on vent, BiPAP. WBC 16.7 02/05: WBC down to 14.2, afebrile heart rate in 40s comfortable on vent overnight. When sedation was weaned she almost self extubated. ABG 7. 50/39/66 on 50% FiO2 PEEP of 5. 7/10: Extubated without event 02/10: Patient is doing better today. Still needs 6 to 7 L of O2 and saturating 90%. She did have one large bowel movement. Still pending speech evaluation. PT OT is working with the patient now. 02/11: Requiring 7 L nasal cannula O2. She is saturating 100%. Discussed with RN to titrate down on O2. Speech evaluated and patient is able to tolerate regular diet with thickened liquids. Patient is working well with PT OT. 02/13: Saturating 91% on 5 L nasal cannula. She is sitting up in bed and appears to have more energy compared to yesterday. She has been working with physical therapy 02/14: Saturating 95 to 97% on 5 L nasal cannula. She has more energy than yesterday and still on IV steroids. Patient is progressively improving each day. 02/15: Saturating 97% on 4 L nasal cannula. Patient continues to significantly improve 02/16: Afebrile, O2 sats 95% on 5 L nasal cannula. Seen on commode. She still having difficulty getting a deep breath, tries but she can't. Says she feels "mass mejor". 02/17: Afebrile. O2 saturation 94% on 6 L nasal cannula. States she is feeling better today. However she has conversational dyspnea and difficulty getting a d eep breath. 02/18: Afebrile. O2 saturation 90% on 6 L nasal cannula. She worked with DIRECTOR HOME today and had significant aspirations with thin liquids. 02/19: Still on 6L NCO2. Afebrile. Able to work with PT to go to the restroom on her own and able to take 3 steps with standby assistance. Still very weak after that falls back into the chair. On a social note apparently during her extended hospital stay she has been evicted from her apartment. 02/20: Afebrile on 5 L nasal cannulated oxygen 93%. She had her first bath today. 02/21: Right sided pneumothorax s/p chest tube. CXR with near resolution of PTX with chest tube, still with diffuse bilateral infiltrates. Afebrile. Labs stable. Breathing improved. Chest wall pain at chest tube insertion site. O2 saturations 96% on 3 L during my examination. Plan: Repeat chest x-ray in a.m. may be able to remove the chest tube as she has no air leak could get a repeat chest x-ray after that and possibly go home with home O2. Would be appropriate for her to have DIRECTOR HOME reevaluation as she did continue to have some aspirations with thin liquids and she continues to ask for thin liquids. COVID-19 CRITERIA: The patient was evaluated during the global COVID-19 pandemic, and that diagnosis was suspected/considered upon their initial presentation. Their evaluation, treatment and testing was consistent with curr ent guidelines for patients who present with complaints or symptoms that may be related to COVID-19. 02/24/20 Patient seen and examined Chart reviewed Discussed with RN Vitals/I&O Vitals/I&O: Vital Signs Date Time Temp Pulse Resp B/P (MAP) Pulse Ox O2 Delivery O2 Flow Rate FiO2 02/24/20 11:21 98.5 74 16 107/72 (84) 95 Room Air 98.5 02/23/20 20:00 3.0 I & O 02/23/20 02/23/20 02/24/20 15:00 23:00 07:00 Intake Total 500 ml 210 ml Balance 500 ml 210 ml Physical Exam Physical Exam: GENERAL: Patient is alert and awake. NAD HEENT: Moist mucous membranes. No scleral icterus or obvious cervical lymph adenopathy CV: RRR. No murmurs rubs or gallops. Unable to appreciate S3 or S4 PULM: Bilaterally clear to auscultation. Chest expanding equally bilaterally without use of accessory muscles. Patient is able to expel good effort and cough ABD: Soft and nondistended on visualization and palpation. Normoactive bowel sounds heard. EXTREMITIES: No pedal edema seen. No warmth or tenderness upon touch. NEURO: Full ROM in all extremities. Patient has 3 out of 5 strength General: Alert, Other (Chest tube) Heart: Regular rate Lungs: Clear Abdomen: No masses, Other Extremities: No cyanosis, Normal pulses Skin: No breakdown, No significant lesion Labs Labs: Laboratory Tests Test 02/24/20 06:40 White Blood Count 6.6 x10^3/uL (4.0-11.0) Red Blood Count 3.75 x10^6/uL (3.50-5.40) Hemoglobin 10.9 g/dL (12.0-15.5) Hematocrit 32.3 % (36.0-47.0) Mean Corpuscular Volume 86 fL (79-100) Mean Corpuscular Hemoglobin 29 pg (25-35) Mean Corpuscular Hemoglobin Concent 34 g/dL (31-37) Red Cell Distribution Width 16.9 % (11.5-14.5) Platelet Count 284 x10^3/uL (140-400) Neutrophils (%) (Auto) 75 % (31-73) Lymphocytes (%) (Auto) 15 % (24-48) Monocytes (%) (Auto) 7 % (0-9) Eosinophils (%) (Auto) 3 % (0-3) Basophils (%) (Auto) 1 % (0-3) Neutrophils # (Auto) 4.9 x10^3/uL (1.8-7.7) Lymphocytes # (Auto) 1.0 x10^3/uL (1.0-4.8) Monocytes # (Auto) 0.5 x10^3/uL (0.0-1.1) Eosinophils # (Auto) 0.2 x10^3/uL (0.0-0.7) Basophils # (Auto) 0.1 x10^3/uL (0.0-0.2) Sodium Level 144 mmol/L (136-145) Potassium Level 3.7 mmol/L (3.5-5.1) Chloride Level 107 mmol/L (98-107) Carbon Dioxide Level 31 mmol/L (21-32) Anion Gap 6 (6-14) Blood Urea Nitrogen 4 mg/dL (7-20) Creatinine 0.5 mg/dL (0.6-1.0) Estimated GFR (Cockcroft-Gault) 134.0 BUN/Creatinine Ratio 8 (6-20) Glucose Level 92 mg/dL (70-99) Calcium Level 8.4 mg/dL (8.5-10.1) Total Bilirubin 0.3 mg/dL (0.2-1.0) Aspartate Amino Transf (AST/SGOT) 17 U/L (15-37) Alanine Aminotransferase (ALT/SGPT) 26 U/L (14-59) Alkaline Phosphatase 62 U/L (46-116) Total Protein 6.2 g/dL (6.4-8.2) Albumin 2.8 g/dL (3.4-5.0) Albumin/Globulin Ratio 0.8 (1.0-1.7) Assessment and Plan Assessmemt and Plan Problems Medical Problems: (1) Pneumonia due to COVID-19 virus Status: Acute Assessment: Moderate right sided pneumothorax - s/p chest tube placement Oropharyngeal Dysphagiaimproved Critical care myopathyimproved Acute Hypoxic Respiratory Failure Secondary to COVID-19 and sepsis pneumonia multifocal pulmonary infiltrates.// follow-up to resolution. Morbid Obesity, BMI 44 HTN NORMOCYTIC ANEMIA severe protein-caloric malnutrition Critical care myopathy Continue with speech recommendations for regular diet and thickened liquids Continue PT OT who recommends acute rehab Appreciate pulmonary recommendations Continue with daily Solu-Medrol Continue with full dose Lovenox Titrate O2 therapy with goal of 88-92% Lovenox for DVT prophylaxis Regular diet Full code Discussed with RN and SW Dispo pending rehab vs home placement. Patient likely may be able to discharge home without any rehab or home O2 requirements. The patient was evaluated during the global COVID-19 pandemic, and that diagnosis was suspected/considered upon their initial presentation. Their evaluation, treatment and testing was consistent with current guidelines for patients who present with complaints or symptoms that may be related to COVID- 19. Chest X-ray from 02/24/20 1. Stable right pleural catheter. No pneumothorax is seen. 2. Stable bilateral perihilar and basilar opacities. Plan: Hope to DC chest tube tomorrow (it is currently clamped) Await repeat COVID testing Home meds Trend labs Continue current care DVT prophylaxis Trend labs Appreciate subspecialist input Comment Review of Relevant I have reviewed the following items stephon (where applicable) has been applied. Justicifation of Admission Dx: Justifications for Admission: Justification of Admission Dx: Yes Respiratory Failure: Severe Resp Distress TABITHA BLACK III DO Feb 24, 2020 12:19
[2020-02-24 15:00] VITALS: BP 117/72
--- NOTE | 2020-02-24 17:37 | NUR ---
SW following. SW reviewed chart and spoke with RN. Discharge plan remains home with family and private pay 02 when stable. Pt not ready for discharge. Pt has a chest tube. Pt down to 3l 02. SW to follow as needed.
[2020-02-24 19:00] VITALS: BP 140/82
[2020-02-24] MEDS: FAMOTIDINE 20 MG TABLET. PO SCH (22:00)
[2020-02-24 23:00] VITALS: BP 152/75
[2020-02-25 02:54] VITALS: BP 121/72
[2020-02-25 07:19] VITALS: BP 144/89
[2020-02-25] MEDS: SENNOSIDES/DOCUSATE 8.6/50MG TABLET. PO SCH ×2 (08:25→23:03)
[2020-02-25] MEDS: THIAMINE 100 MG TABLET. PO SCH (08:25)
[2020-02-25] MEDS: ASCORBIC ACID 500 MG TABLET PO SCH (08:25)
[2020-02-25] MEDS: ENOXAPARIN 40 MG/0.4 ML SYRINGE. SQ SCH ×2 (08:25→23:03)
[2020-02-25] MEDS: FLUTICASONE 50MCG/NASAL SPRAY 16GM BOTTLE. NS SCH (09:00)
[2020-02-25 11:08] VITALS: BP 123/71
--- NOTE | 2020-02-25 11:49 | PDOC ---
PULMONARY PROGRESS NOTES Subjective Patient with no short of air, s/p right chest tube for PTX Vitals Vital Signs Date Time Temp Pulse Resp B/P (MAP) Pulse Ox O2 Delivery O2 Flow Rate FiO2 02/25/20 11:08 97.9 73 20 123/71 (88) 97 Nasal Cannula 3.0 97.9 Comments alert on 02 6 litres General: Alert, No acute distress Lungs: Clear Cardiovascular: S1 Abdomen: Soft Neuro Exam: Alert Extremities: No Edema Labs Laboratory Tests Test 02/24/20 06:40 White Blood Count 6.6 x10^3/uL (4.0-11.0) Red Blood Count 3.75 x10^6/uL (3.50-5.40) Hemoglobin 10.9 g/dL (12.0-15.5) Hematocrit 32.3 % (36.0-47.0) Mean Corpuscular Volume 86 fL (79-100) Mean Corpuscular Hemoglobin 29 pg (25-35) Mean Corpuscular Hemoglobin Concent 34 g/dL (31-37) Red Cell Distribution Width 16.9 % (11.5-14.5) Platelet Count 284 x10^3/uL (140-400) Neutrophils (%) (Auto) 75 % (31-73) Lymphocytes (%) (Auto) 15 % (24-48) Monocytes (%) (Auto) 7 % (0-9) Eosinophils (%) (Auto) 3 % (0-3) Basophils (%) (Auto) 1 % (0-3) Neutrophils # (Auto) 4.9 x10^3/uL (1.8-7.7) Lymphocytes # (Auto) 1.0 x10^3/uL (1.0-4.8) Monocytes # (Auto) 0.5 x10^3/uL (0.0-1.1) Eosinophils # (Auto) 0.2 x10^3/uL (0.0-0.7) Basophils # (Auto) 0.1 x10^3/uL (0.0-0.2) Sodium Level 144 mmol/L (136-145) Potassium Level 3.7 mmol/L (3.5-5.1) Chloride Level 107 mmol/L (98-107) Carbon Dioxide Level 31 mmol/L (21-32) Anion Gap 6 (6-14) Blood Urea Nitrogen 4 mg/dL (7-20) Creatinine 0.5 mg/dL (0.6-1.0) Estimated GFR (Cockcroft-Gault) 134.0 BUN/Creatinine Ratio 8 (6-20) Glucose Level 92 mg/dL (70-99) Calcium Level 8.4 mg/dL (8.5-10.1) Total Bilirubin 0.3 mg/dL (0.2-1.0) Aspartate Amino Transf (AST/SGOT) 17 U/L (15-37) Alanine Aminotransferase (ALT/SGPT) 26 U/L (14-59) Alkaline Phosphatase 62 U/L (46-116) Total Protein 6.2 g/dL (6.4-8.2) Albumin 2.8 g/dL (3.4-5.0) Albumin/Globulin Ratio 0.8 (1.0-1.7) Medications Active Scripts Medications Dose Route/Sig Max Daily Dose Days Date Category Keflex (Cephalexin) 500 Mg Capsule 500 Mg PO QID 10 06/20/18 Rx [place] 5-325 Tablet (Acetaminophen/Hydrocodone Bitart) 1 Each Tablet 1 Tab PO PRN Q6HRS PRN 06/20/18 Rx Comments CXR IMPRESSION:02/24 PTX resolved bilateral infiltrates Impression . IMPRESSION: 1. Acute hypoxic respiratory failure secondary to COVID-19 pneumonia and sepsis. intubated 01/24/20, extubated on 02/05 2. Abnormal chest x-ray with bilateral patchy infiltrates compatible with COVID-19 pneumonia. Developed moderate right PTX, likely related to COVID, resolved 3. Underlying obesity. ? ernesto 4. Hypertension 5. Hypotension- resolved 6, COVID-19 sepsis--improved Status post convalescent serum 01/22 8. Critical care myopathy , improved Plan . d/w RN and patients daughter clinically O2 needs are stable on 3 liters. s/p right chest tube. No air leak, resolved PTX clamp chest tube for 24 hrs done, no PTX will remove chest tube today monitor cxr/ still diffuse bilateral infiltrates start low dose steroids repeat covid test positive discussed w rn MIKE OCHOA MD Feb 25, 2020 11:49
--- NOTE | 2020-02-25 11:50 | PDOC ---
[employer] [facility] PROGRESS NOTE Chief Complaint Chief Complaint Moderate right sided pneumothorax - s/p chest tube placement Oropharyngeal Dysphagiaimproved Critical care myopathyimproved Acute Hypoxic Respiratory Failure Secondary to COVID-19 and sepsis pneumonia multifocal pulmonary infiltrates.// follow-up to resolution. Morbid Obesity, BMI 44 HTN NORMOCYTIC ANEMIA severe protein-caloric malnutrition Critical care myopathy Continue with speech recommendations for regular diet and thickened liquids Continue PT OT who recommends acute rehab Appreciate pulmonary recommendations Continue with daily Solu-Medrol Continue with full dose Lovenox Titrate O2 therapy with goal of 88-92% Lovenox for DVT prophylaxis Regular diet Full code Discussed with RN and SW Dispo pending rehab vs home placement. Patient likely may be able to discharge home without any rehab or home O2 requirements. The patient was evaluated during the global COVID-19 pandemic, and that diagnosis was suspected/considered upon their initial presentation. Their evaluation, treatment and testing was consistent with current guidelines for patients who present with complaints or symptoms that may be related to COVID- 19. History of Present Illness History of Present Illness 02/25/20 Patient seen and examined Chart reviewed Discussed with RN Awaiting chest x-ray report 02/24/20 Patient seen and examined Chart reviewed Discussed with RN Ms Hackett is a 44-year-old female, who had been having fever and shortness of breath for about a week or so. The patient had outpatient COVID-19 done through [facility] on 01/13/2020 and was informed of positive results on 01/14/2020, which was positive and because of more shortness of breath, she decided to come in. The patient is requiring significant oxygen support. The patient denies any nausea, vomiting or diarrhea. Denies any other complaints other than shortness of breath. 7/4: very awake ealier on 10 versed, and IV fent, doing well on vent, discussed with RT, going down no Fi02 to 65% 7: weaning PEEP and oxygen a little, doing a little better, cont current 02/02: weaning slowly, no event, improving slowly 7: Still on vent, awake, trying to self extubate. D/w pulm to stay on vent, BiPAP. WBC 16.7 02/05: WBC down to 14.2, afebrile heart rate in 40s comfortable on vent overnight. When sedation was weaned she almost self extubated. ABG 7. 50/39/66 on 50% FiO2 PEEP of 5. 02/06: Extubated without event 02/10: Patient is doing better today. Still needs 6 to 7 L of O2 and saturating 90%. She did have one large bowel movement. Still pending speech evaluation. PT OT is working with the patient now. 02/11: Requiring 7 L nasal cannula O2. She is saturating 100%. Discussed with RN to titrate down on O2. Speech evaluated and patient is able to tolerate regular diet with thickened liquids. Patient is working well with PT OT. 02/13: Saturating 91% on 5 L nasal cannula. She is sitting up in bed and appears to have more energy compared to yesterday. She has been working with physical therapy 02/14: Saturating 95 to 97% on 5 L nasal cannula. She has more energy than yesterday and still on IV steroids. Patient is progressively improving each day. 02/15: Saturating 97% on 4 L nasal cannula. Patient continues to significantly improve 02/16: Afebrile, O2 sats 95% on 5 L nasal cannula. Seen on commode. She still having difficulty getting a deep breath, tries but she can't. Says she feels "mass mejor". 02/17: Afebrile. O2 saturation 94% on 6 L nasal cannula. States she is feeling better today. However she has conversational dyspnea and difficulty getting a deep breath. 02/18: Afebrile. O2 saturation 90% on 6 L nasal cannula. She worked with PUBLIC WEL[employer] WORK[employer] today and had significant aspirations with thin liquids. 02/19: Still on 6L NCO2. Afebrile. Able to work with PT to go to the restroom on her own and able to take 3 steps with standby assistance. Still very weak after that falls back into the chair. On a social note apparently during her extended hospital stay she has been evicted from her apartment. 02/20: Afebrile on 5 L nasal cannulated oxygen 93%. She had her first bath today. 02/21: Right sided pneumothorax s/p chest tube. CXR with near resolution of PTX with chest tube, still with diffuse bilateral infiltrates. Afebrile. Labs stable. Breathing improved. Chest wall pain at chest tube insertion site. O2 saturations 96% on 3 L during my examination. Plan: Repeat chest x-ray in a.m. may be able to remove the chest tube as she has no air leak could get a repeat chest x-ray after that and possibly go home with home O2. Would be appropriate for her to have PUBLIC [employer]EL[employer] WORK[employer] reevaluation as she did continue to have some aspirations with thin liquids and she continues to ask for thin liquids. COVID-19 CRITERIA: The patient was evaluated during the global COVID-19 pandemic, and that diagnosis was suspected/considered upon their initial presentation. Their evaluation, treatment and testing was consistent with current guidelines for patients who present with complaints or symptoms that may be related to COVID-19. Vitals/I&O Vitals/I&O: Vital Signs Date Time Temp Pulse Resp B/P (MAP) Pulse Ox O2 Delivery O2 Flow Rate FiO2 02/25/20 11:08 97.9 73 20 123/71 (88) 97 Nasal Cannula 3.0 97.9 I & O 02/24/20 02/24/20 02/25/20 15:00 23:00 07:00 Output Total 0 ml Balance 0 ml Physical Exam Physical Exam: GENERAL: Patient is alert and awake. NAD HEENT: Moist mucous membranes. No scleral icterus or obvious cervical lymphadenopathy CV: RRR. No murmurs rubs or gallops. Unable to appreciate S3 or S4 PULM: Bilaterally clear to auscultation. Chest expanding equally bilaterally without use of accessory muscles. Patient is able to expel good effort and cough ABD: Soft and nondistended on visualization and palpation. Normoactive bowel sounds heard. EXTREMITIES: No pedal edema seen. No warmth or tenderness upon touch. NEURO: Full ROM in all extremities. Patient has 3 out of 5 strength General: Alert, Cooperative, Other (Chest tube) Heart: Regular rate, Normal S1, Normal S2 Lungs: Clear Abdomen: Normal bowel sounds, No masses, Other Extremities: No cyanosis, Normal pulses Skin: No breakdown, No significant lesion Assessment and Plan Assessmemt and Plan Problems Medical Problems: (1) Pneumonia due to COVID-19 virus Status: Acute Assessment: Moderate right sided pneumothorax - s/p chest tube placement Oropharyngeal Dysphagiaimproved Critical care myopathyimproved Acute Hypoxic Respiratory Failure Secondary to COVID-19 and sepsis pneumonia multifocal pulmonary infiltrates.// follow-up to resolution. Morbid Obesity, BMI 44 HTN NORMOCYTIC ANEMIA severe protein-caloric malnutrition Critical care myopathy Plan: Discharge planning in progress Continue current care DVT prophylaxis Trend labs Hope to remove chest tube, awaiting chest x-ray results Comment Review of Relevant I have reviewed the following items stephon (where applicable) has been applied. Justicifation of Admission Dx: Justifications for Admission: Justification of Admission Dx: Yes Respiratory Failure: Severe Resp Distress TABITHA BLACK III DO Feb 25, 2020 11:50
--- NOTE | 2020-02-25 12:53 | RAD ---
EXAM: PORTABLE CHEST 1V INDICATION: Reason: PTX / Spl. Instructions: / History: . TECHNIQUE: Single view COMPARISON: 02/24/2020 FINDINGS: Right-sided pigtail pleural drainage catheter remains present. Right subclavian approach central venous catheter with tip near the cavoatrial junction is present. Heart is moderately enlarged The great vessels appear unremarkable. [place] are obscured by near confluent bilateral airspace opacities Lungs remain low in volume and show less well aeration at the bases. There is no pleural effusion or pneumothorax. There are no significant osseous abnormalities. IMPRESSION: Right pigtail pleural drainage catheter with no residual pneumothorax shown by portable chest x-ray but slightly worse bilateral pulmonary infiltrates in the setting of cardiomegaly and poor inspiration. Electronically signed by: Maryam Galvez MD (02/25/2020 12:50 PM) [id number]
[2020-02-25] MEDS: predniSONE 20 MG TABLET PO SCH (13:50)
[2020-02-25 15:18] VITALS: BP 127/74
--- NOTE | 2020-02-25 16:26 | NUR ---
SW following. SW reviewed chart and spoke with RN. Discharge plan remains home with family and private pay 02 when stable. Pt not ready for discharge. Pt has a chest tube. Pt on 3l 02. RN stated pt's dtr-in-law Romana ([phone]) called and would like a return call. SW called and spoke with Romana who stated she is caring for her 2 children and pt's 2 children as the father of pt's children was deported. Pt working with [facility] Family Preservation Specialist Rosa Elena Pineda, , (fax). Rosa Elena faxed over a release of information for pt to sign and SW provided to RN to give to pt. SW to continue following.
[2020-02-25 19:35] VITALS: BP 147/88
[2020-02-25] MEDS: FAMOTIDINE 20 MG TABLET. PO SCH (23:03)
[2020-02-25 23:49] VITALS: BP 136/60
[2020-02-26 07:18] VITALS: BP 147/78
--- NOTE | 2020-02-26 08:54 | PDOC ---
[employer] PROGRESS NOTE Chief Complaint Chief Complaint Moderate right sided pneumothorax - s/p chest tube placement Oropharyngeal Dysphagiaimproved Critical care myopathyimproved Acute Hypoxic Respiratory Failure Secondary to COVID-19 and sepsis pneumonia multifocal pulmonary infiltrates.// follow-up to resolution. Morbid Obesity, BMI 44 HTN NORMOCYTIC ANEMIA severe protein-caloric malnutrition Critical care myopathy The patient was evaluated during the global COVID-19 pandemic, and that diagnosis was suspected/considered upon their initial presentation. Their evaluation, treatment and testing was consistent with current guidelines for patients who present with complaints or symptoms that may be related to COVID- 19. History of Present Illness History of Present Illness 02/26/2020 Patient is seen and examined Chest tube has been removed Chart reviewed Discussed with RN. 02/25/20 Patient seen and examined Chart reviewed Discussed with RN Awaiting chest x-ray report 02/24/20 Patient seen and examined Chart reviewed Discussed with RN Ms Hackett is a 44-year-old female, who had been having fever and shortness of breath for about a week or so. The patient had outpatient COVID-19 done through [facility] on 01/13/2020 and was informed of positive results on 01/14/2020, which was positive and because of more shortness of breath, she decided to come in. The patient is requiring significant oxygen support. The patient denies any nausea, vomiting or diarrhea. Denies any other complaints other than shortness of breath. 01/31: very awake ealier on 10 versed, and IV fent, doing well on vent, discussed with RT, going down no Fi02 to 65% 02/01: weaning PEEP and oxygen a little, doing a little better, cont current 02/02: weaning slowly, no event, improving slowly 02/04: Still on vent, awake, trying to self extubate. D/w pulm to stay on vent, BiPAP. WBC 16.7 02/05: WBC down to 14.2, afebrile heart rate in 40s comfortable on vent overnight. When sedation was weaned she almost self extubated. ABG 7. 50/39/66 on 50% FiO2 PEEP of 5. 7/10: Extubated without event 02/10: Patient is doing better today. Still needs 6 to 7 L of O2 and saturating 90%. She did have one large bowel movement. Still pending speech evaluation. PT OT is working with the patient now. 02/11: Requiring 7 L nasal cannula O2. She is saturating 100%. Discussed with RN to titrate down on O2. Speech evaluated and patient is able to tolerate regular diet with thickened liquids. Patient is working well with PT OT. 02/13: Saturating 91% on 5 L nasal cannula. She is sitting up in bed and appears to have more energy compared to yesterday. She has been working with physical therapy 02/14: Saturating 95 to 97% on 5 L nasal cannula. She has more energy than yesterday and still on IV steroids. Patient is progressively improving each day. 02/15: Saturating 97% on 4 L nasal cannula. Patient continues to significantly improve 02/16: Afebrile, O2 sats 95% on 5 L nasal cannula. Seen on commode. She still having difficulty getting a deep breath, tries but she can't. Says she feels "mass mejor". 02/17: Afebrile. O2 saturation 94% on 6 L nasal cannula. States she is feeling better today. However she has conversational dyspnea and difficulty getting a deep breath. 02/18: Afebrile. O2 saturation 90% on 6 L nasal cannula. She worked with MACHINE ADJUSTER today and had significant aspirations with thin liquids. 02/19: Still on 6L NCO2. Afebrile. Able to work with PT to go to the restroom on her own and able to take 3 steps with standby assistance. Still very weak after that falls back into the chair. On a social note apparently during her extended hospital stay she has been evicted from her apartment. 02/20: Afebrile on 5 L nasal cannulated oxygen 93%. She had her first bath today. 02/21: Right sided pneumothorax s/p chest tube. CXR with near resolution of PTX with chest tube, still with diffuse bilateral infiltrates. Afebrile. Labs stable. Breathing improved. Chest wall pain at chest tube insertion site. O2 saturations 96% on 3 L during my examination. Plan: Repeat chest x-ray in a.m. may be able to remove the chest tube as she has no air leak could get a repeat chest x-ray after that and possibly go home with home O2. Would be appropriate for her to have MACHINE ADJUSTER reevaluation as she did continue to have some aspirations with thin liquids and she continues to ask for thin liquids. COVID-19 CRITERIA: The patient was evaluated during the global COVID-19 pandemic, and that diagnosis was suspected/considered upon their initial presentation. Their evaluation, treatment and testing was consistent with current guidelines for patients who present with complaints or symptoms that may be related to COVID-19. Vitals/I&O Vitals/I&O: Vital Signs Date Time Temp Pulse Resp B/P (MAP) Pulse Ox O2 Delivery O2 Flow Rate FiO2 02/26/20 07:18 98.1 71 19 147/78 (101) 88 Nasal Cannula 3.0 98.1 I & O 02/25/20 02/25/20 02/26/20 15:00 23:00 07:00 Intake Total 200 ml 300 ml Output Total 200 ml 400 ml 300 ml Balance -200 ml -200 ml 0 ml Physical Exam Physical Exam: GENERAL: Patient is alert and awake. NAD HEENT: Moist mucous membranes. No scleral icterus or obvious cervical lymphadenopathy CV: RRR. No murmurs rubs or gallops. Unable to appreciate S3 or S4 PULM: Bilaterally clear to auscultation. Chest expanding equally bilaterally without use of accessory muscles. Patient is able to expel good effort and cough ABD: Soft and nondistended on visualization and palpation. Normoactive bowel sounds heard. EXTREMITIES: No pedal edema seen. No warmth or tenderness upon touch. NEURO: Full ROM in all extremities. Patient has 3 out of 5 strength General: Alert, Cooperative, Other (Chest tube) Heart: Regular rate, Normal S1, Normal S2 Lungs: Clear Abdomen: Normal bowel sounds, No masses, Other Extremities: No cyanosis, Normal pulses Skin: No breakdown, No significant lesion Assessment and Plan Assessmemt and Plan Problems Medical Problems: (1) Pneumonia due to COVID-19 virus Status: Acute Assessment Moderate right sided pneumothorax - s/p chest tube placement Oropharyngeal Dysphagiaimproved Critical care myopathyimproved Acute Hypoxic Respiratory Failure Secondary to COVID-19 and sepsis pneumonia multifocal pulmonary infiltrates.// follow-up to resolution. Morbid Obesity, BMI 44 HTN NORMOCYTIC ANEMIA severe protein-caloric malnutrition Critical care myopathy Plan Continue with speech recommendations for regular diet and thickened liquids Continue PT OT Continue wound care routine Continue with full dose Lovenox Lovenox for DVT prophylaxis Regular diet Full code Discharge disposition pending Comment Review of Relevant I have reviewed the following items stephon (where applicable) has been applied. Medications: Current Medications Medications (Trade) Dose Ordered Sig/Wei Route PRN Reason Start Time Stop Time Status Last Admin Dose Admin Prednisone (Prednisone) 30 mg DAILY PO 02/25/20 14:00 02/25/20 13:50 Justicifation of Admission Dx: Justifications for Admission: Justification of Admission Dx: Yes Respiratory Failure: Severe Resp Distress TABITHA BLACK III DO Feb 26, 2020 08:54
--- NOTE | 2020-02-26 08:58 | RAD ---
Procedure: CT guided chest tube placement. Exposure: One or more of the following individualized dose reduction techniques were utilized for this examination: 1. Automated exposure control 2. Adjustment of the mA and/or kV according to patient size 3. Use of iterative reconstruction technique Clinical Indication: Spontaneous pneumothorax with increased oxygen requirements The procedure, risks, and complications to include bleeding, infection, tube dislodgment were explained to the patient and they understood and wished to proceed. Consent form signed. The right was prepped and draped using maximal sterile technique and one percent Xylocaine was used for local anesthesia. CT scan: Axial scans were performed and show a right sided anterior pneumothorax. An appropriate intercostal space was selected for chest tube placement. Technique: Under CT guidance an 21 gauge needle was inserted into the right sided pneumothorax, needle was advanced under suction until air returned into the syringe. A 0.018 guidewire was inserted, over this an accustick system was used to transition to a 0.035 wire. The tract dilated and a 10 Khmer Pigtail catheter inserted. Air was easily aspirated from the tube. The catheter was sutured to the skin. Sedation: None. Continual cardiopulmonary monitoring was carried out during the procedure. The patient tolerated the procedure well and there were no immediate complications. Complications: None The patient tolerated the procedure well and returned to the floor in stable condition. Conclusion: CT guided right chest tube placement for pneumothorax. Electronically signed by: David Lott MD (02/26/2020 8:55 AM) [id number]
[2020-02-26] MEDS: ENOXAPARIN 40 MG/0.4 ML SYRINGE. SQ SCH ×2 (09:25→20:35)
[2020-02-26] MEDS: ASCORBIC ACID 500 MG TABLET PO SCH (09:25)
[2020-02-26] MEDS: predniSONE 20 MG TABLET PO SCH (09:26)
[2020-02-26] MEDS: THIAMINE 100 MG TABLET. PO SCH (09:26)
[2020-02-26] MEDS: SENNOSIDES/DOCUSATE 8.6/50MG TABLET. PO SCH ×2 (09:27→20:35)
[2020-02-26] MEDS: FLUTICASONE 50MCG/NASAL SPRAY 16GM BOTTLE. NS SCH (10:01)
[2020-02-26 11:05] VITALS: BP 140/74
--- NOTE | 2020-02-26 11:39 | PDOC ---
PULMONARY PROGRESS NOTES Subjective Patient with no short of air, s/p right chest tube for PTX, resolved chest tube removed 02/24 Vitals Vital Signs Date Time Temp Pulse Resp B/P (MAP) Pulse Ox O2 Delivery O2 Flow Rate FiO2 02/26/20 07:18 98.1 71 19 147/78 (101) 88 Nasal Cannula 3.0 98.1 Comments alert on 02 3 litres General: Alert, No acute distress Lungs: Clear Cardiovascular: S1 Abdomen: Soft Neuro Exam: Alert Extremities: No Edema Medications Active Scripts Medications Dose Route/Sig Max Daily Dose Days Date Category Keflex (Cephalexin) 500 Mg Capsule 500 Mg PO QID 10 06/20/18 Rx [place] 5-325 Tablet (Acetaminophen/Hydrocodone Bitart) 1 Each Tablet 1 Tab PO PRN Q6HRS PRN 06/20/18 Rx Comments CXR IMPRESSION:02/24 PTX resolved bilateral infiltrates Impression . IMPRESSION: 1. Acute hypoxic respiratory failure secondary to COVID-19 pneumonia and sepsis. intubated 01/24/20, extubated on 02/05 2. Abnormal chest x-ray with bilateral patchy infiltrates compatible with COVID-19 pneumonia. Developed moderate right PTX, likely related to COVID, resolved. chest tube removed 02/24 3. Underlying obesity. ? ernesto 4. Hypertension 5. Hypotension- resolved 6, COVID-19 sepsis--improved Status post convalescent serum 01/22 8. Critical care myopathy , improved Plan . d/w RN clinically O2 needs are stable on 3 liters. s/p right chest tube removal 02/24 monitor cxr/ still diffuse bilateral infiltrates started on low dose steroids repeat covid test positive discussed w rn dc plans with O2 will see MIKE ROSALES MD Feb 26, 2020 11:39
[2020-02-26 15:20] VITALS: BP 137/86
--- NOTE | 2020-02-26 17:30 | NUR ---
SW following. Spoke with RN and reviewed chart. Pt to have chest tube removed today and can likely discharge tomorrow, 02/26/2020. Pt on 3 02. TRISH obtained signed release of information form from pt and faxed it back to [facility] Family Preservation Specialist Rosa Elena Pineda, , (fax). TRISH LVM for Rosa Elena to coordinate care. TRISH to continue following.
[2020-02-26 19:30] VITALS: BP 125/66
[2020-02-26] MEDS: FAMOTIDINE 20 MG TABLET. PO SCH (20:35)
[2020-02-26 23:17] VITALS: BP 145/81
[2020-02-27 03:22] VITALS: BP 117/69
[2020-02-27 05:55] LABS: BASO # 0.1 x10^3/uL (0.0-0.2); BASO % 1 % (0-3); EOS # 0.1 x10^3/uL (0.0-0.7); EOS % 1 % (0-3); HEMATOCRIT 34.8 % (36.0-47.0); HEMOGLOBIN 11.7 g/dL (12.0-15.5); LYMPH # 2.4 x10^3/uL (1.0-4.8); LYMPH % 30 % (24-48); MEAN CORPUSCULAR HEMOGLOBIN 29 pg (25-35); MEAN CORPUSCULAR HGB CONC 34 g/dL (31-37); MEAN CORPUSCULAR VOLUME 85 fL (79-100); MONO # 0.5 x10^3/uL (0.0-1.1); MONO % 7 % (0-9); NEUT # 4.8 x10^3/uL (1.8-7.7); NEUT % 61 % (31-73); PLATELET COUNT 304 x10^3/uL (140-400); RED BLOOD COUNT 4.08 x10^6/uL (3.50-5.40); WHITE BLOOD COUNT 7.9 x10^3/uL (4.0-11.0)
[2020-02-27 06:19] LABS: ALBUMIN 2.9 g/dL (3.4-5.0); ALBUMIN/GLOBULIN RATIO 0.8 (1.0-1.7); CALCIUM 8.5 mg/dL (8.5-10.1); CREATININE 0.5 mg/dL (0.6-1.0); POTASSIUM 3.6 mmol/L (3.5-5.1); TOTAL BILIRUBIN 0.3 mg/dL (0.2-1.0); TOTAL PROTEIN 6.5 g/dL (6.4-8.2)
[2020-02-27 07:00] VITALS: BP 141/87
[2020-02-27] MEDS: FLUTICASONE 50MCG/NASAL SPRAY 16GM BOTTLE. NS SCH (09:00)
[2020-02-27] MEDS ORDERED: MULTIVITAMIN I-VITE TABLET. PO SCH (09:00)
[2020-02-27] MEDS: THIAMINE 100 MG TABLET. PO SCH (09:49)
[2020-02-27] MEDS: predniSONE 20 MG TABLET PO SCH (09:49)
[2020-02-27] MEDS: SENNOSIDES/DOCUSATE 8.6/50MG TABLET. PO SCH (09:49)
[2020-02-27] MEDS: ASCORBIC ACID 500 MG TABLET PO SCH (09:49)
[2020-02-27] MEDS: ENOXAPARIN 40 MG/0.4 ML SYRINGE. SQ SCH (09:53)
[2020-02-27 11:00] VITALS: BP 116/73
--- NOTE | 2020-02-27 12:18 | PDOC ---
[employer] PROGRESS NOTE Chief Complaint Chief Complaint Moderate right sided pneumothorax - s/p chest tube placement Oropharyngeal Dysphagiaimproved Critical care myopathyimproved Acute Hypoxic Respiratory Failure Secondary to COVID-19 and sepsis pneumonia multifocal pulmonary infiltrates.// follow-up to resolution. Morbid Obesity, BMI 44 HTN NORMOCYTIC ANEMIA severe protein-caloric malnutrition Critical care myopathy The patient was evaluated during the global COVID-19 pandemic, and that diagnosis was suspected/considered upon their initial presentation. Their evaluation, treatment and testing was consistent with current guidelines for patients who present with complaints or symptoms that may be related to COVID- 19. History of Present Illness History of Present Illness 02/27/2020 Patient is seen and examined Patient is resting comfortably on 3L O2 Charts reviewed Discussed with RN 02/26/2020 Patient is seen and examined Chest tube has been removed Chart reviewed Discussed with RN. 02/25/20 Patient seen and examined Chart reviewed Discussed with RN Awaiting chest x-ray report 02/24/20 Patient seen and examined Chart reviewed Discussed with RN Ms Hackett is a 44-year-old female, who had been having fever and shortness of breath for about a week or so. The patient had outpatient COVID-19 done through [facility] on 01/13/2020 and was informed of positive results on 01/14/2020, which was positive and because of more shortness of breath, she decided to come in. The patient is requiring significant oxygen support. The patient denies any nausea, vomiting or diarrhea. Denies any other complaints other than shortness of breath. 7: very awake ealier on 10 versed, and IV fent, doing well on vent, discussed with RT, going down no Fi02 to 65% 02/01: weaning PEEP and oxygen a little, doing a little better, cont current 02/02: weaning slowly, no event, improving slowly 02/04: Still on vent, awake, trying to self extubate. D/w pulm to stay on vent, BiPAP. WBC 16.7 02/05: WBC down to 14.2, afebrile heart rate in 40s comfortable on vent overnight. When sedation was weaned she almost self extubated. ABG 7. 50/39/66 on 50% FiO2 PEEP of 5. 7/10: Extubated without event 02/10: Patient is doing better today. Still needs 6 to 7 L of O2 and saturating 90%. She did have one large bowel movement. Still pending speech evaluation. PT OT is working with the patient now. 02/11: Requiring 7 L nasal cannula O2. She is saturating 100%. Discussed with RN to titrate down on O2. Speech evaluated and patient is able to tolerate regular diet with thickened liquids. Patient is working well with PT OT. 02/13: Saturating 91% on 5 L nasal cannula. She is sitting up in bed and appears to have more energy compared to yesterday. She has been working with physical therapy 02/14: Saturating 95 to 97% on 5 L nasal cannula. She has more energy than yesterday and still on IV steroids. Patient is progressively improving each day. 02/15: Saturating 97% on 4 L nasal cannula. Patient continues to significantly improve 02/16: Afebrile, O2 sats 95% on 5 L nasal cannula. Seen on commode. She still having difficulty getting a deep breath, tries but she can't. Says she feels "mass mejor". 02/17: Afebrile. O2 saturation 94% on 6 L nasal cannula. States she is feeling better today. However she has conversational dyspnea and difficulty getting a deep breath. 02/18: Afebrile. O2 saturation 90% on 6 L nasal cannula. She worked with MICRO PHOTOGRAPHER today and had significant aspirations with thin liquids. 02/19: Still on 6L NCO2. Afebrile. Able to work with PT to go to the restroom on her own and able to take 3 steps with standby assistance. Still very weak after that falls back into the chair. On a social note apparently during her extended hospital stay she has been evicted from her apartment. 02/20: Afebrile on 5 L nasal cannulated oxygen 93%. She had her first bath today. 02/21: Right sided pneumothorax s/p chest tube. CXR with near resolution of PTX with chest tube, still with diffuse bilateral infiltrates. Afebrile. Labs stable. Breathing improved. Chest wall pain at chest tube insertion site. O2 saturations 96% on 3 L during my examination. Plan: Repeat chest x-ray in a.m. may be able to remove the chest tube as she has no air leak could get a repeat chest x-ray after that and possibly go home with home O2. Would be appropriate for her to have MICRO PHOTOGRAPHER reevaluation as she did continue to have some aspirations with thin liquids and she continues to ask for thin liquids. COVID-19 CRITERIA: The patient was evaluated during the global COVID-19 pandemic, and that diagnosis was suspected/considered upon their initial present ation. Their evaluation, treatment and testing was consistent with current guidelines for patients who present with complaints or symptoms that may be related to COVID-19. Vitals/I&O Vitals/I&O: Vital Signs Date Time Temp Pulse Resp B/P (MAP) Pulse Ox O2 Delivery O2 Flow Rate FiO2 02/27/20 08:00 Nasal Cannula 3.0 02/27/20 07:00 97.9 21 141/87 (105) 95 97.9 02/27/20 03:22 55 I & O 02/26/20 02/26/20 02/27/20 15:00 23:00 07:00 Intake Total 400 ml 560 ml Balance 400 ml 560 ml Physical Exam Physical Exam: GENERAL: Patient is alert and awake. NAD HEENT: Moist mucous membranes. No scleral icterus or obvious cervical lymphadenopathy CV: RRR. No murmurs rubs or gallops. Unable to appreciate S3 or S4 PULM: Bilaterally clear to auscultation. Chest expanding equally bilaterally without use of accessory muscles. Patient is able to expel good effort and cough ABD: Soft and nondistended on visualization and palpation. Normoactive bowel sounds heard. EXTREMITIES: No pedal edema seen. No warmth or tenderness upon touch. NEURO: Full ROM in all extremities. Patient has 3 out of 5 strength General: Alert, Cooperative Heart: Regular rate, Normal S1, Normal S2 Lungs: Clear Abdomen: Normal bowel sounds, No masses, Other Extremities: No cyanosis, Normal pulses Skin: No breakdown, No significant lesion Labs Labs: Laboratory Tests Test 02/27/20 05:45 White Blood Count 7.9 x10^3/uL (4.0-11.0) Red Blood Count 4.08 x10^6/uL (3.50-5.40) Hemoglobin 11.7 g/dL (12.0-15.5) Hematocrit 34.8 % (36.0-47.0) Mean Corpuscular Volume 85 fL (79-100) Mean Corpuscular Hemoglobin 29 pg (25-35) Mean Corpuscular Hemoglobin Concent 34 g/dL (31-37) Red Cell Distribution Width 17.0 % (11.5-14.5) Platelet Count 304 x10^3/uL (140-400) Neutrophils (%) (Auto) 61 % (31-73) Lymphocytes (%) (Auto) 30 % (24-48) Monocytes (%) (Auto) 7 % (0-9) Eosinophils (%) (Auto) 1 % (0-3) Basophils (%) (Auto) 1 % (0-3) Neutrophils # (Auto) 4.8 x10^3/uL (1.8-7.7) Lymphocytes # (Auto) 2.4 x10^3/uL (1.0-4.8) Monocytes # (Auto) 0.5 x10^3/uL (0.0-1.1) Eosinophils # (Auto) 0.1 x10^3/uL (0.0-0.7) Basophils # (Auto) 0.1 x10^3/uL (0.0-0.2) Sodium Level 144 mmol/L (136-145) Potassium Level 3.6 mmol/L (3.5-5.1) Chloride Level 107 mmol/L (98-107) Carbon Dioxide Level 30 mmol/L (21-32) Anion Gap 7 (6-14) Blood Urea Nitrogen 6 mg/dL (7-20) Creatinine 0.5 mg/dL (0.6-1.0) Estimated GFR (Cockcroft-Gault) 134.0 BUN/Creatinine Ratio 12 (6-20) Glucose Level 79 mg/dL (70-99) Calcium Level 8.5 mg/dL (8.5-10.1) Total Bilirubin 0.3 mg/dL (0.2-1.0) Aspartate Amino Transf (AST/SGOT) 20 U/L (15-37) Alanine Aminotransferase (ALT/SGPT) 28 U/L (14-59) Alkaline Phosphatase 60 U/L (46-116) Total Protein 6.5 g/dL (6.4-8.2) Albumin 2.9 g/dL (3.4-5.0) Albumin/Globulin Ratio 0.8 (1.0-1.7) Assessment and Plan Assessmemt and Plan Problems Medical Problems: (1) Pneumonia due to COVID-19 virus Status: Acute Assessment Moderate right sided pneumothorax - s/p chest tube placement Oropharyngeal Dysphagiaimproved Critical care myopathyimproved Acute Hypoxic Respiratory Failure Secondary to COVID-19 and sepsis pneumonia multifocal pulmonary infiltrates.// follow-up to resolution. Morbid Obesity, BMI 44 HTN NORMOCYTIC ANEMIA severe protein-caloric malnutrition Critical care myopathy Plan Continue with speech recommendations for regular diet and thickened liquids Continue PT/OT Continue wound care routine Monitor CXR IV steroids Regular diet Full code Discharge disposition pending Comment Review of Relevant I have reviewed the following items stephon (where applicable) has been applied. Medications: Current Medications Medications (Trade) Dose Ordered Sig/Ewi Route PRN Reason Start Time Stop Time Status Last Admin Dose Admin Multivitamins/ Minerals (I-Franky) 1 tab DAILY PO 02/27/20 09:00 02/27/20 09:49 Justicifation of Admission Dx: Justifications for Admission: Justification of Admission Dx: Yes Respiratory Failure: Severe Resp Distress TABITHA BLACK III DO Feb 27, 2020 12:18
--- NOTE | 2020-02-27 14:16 | DS ---
DATE OF DISCHARGE: 02/27/2020 ADMISSION DIAGNOSES: Pneumonia and COVID-19. DISCHARGE DIAGNOSES: Resolving pneumonia, resolving COVID-19, status post pneumothorax with chest tube but that has been removed yesterday, underlying obesity, hypertension, resolving hypotension, critical care myopathy. CONSULTS: Dr. Kelly, Dr. Bravo, Dr. Desir, Dr. Keegan Amador, Dr. Urbina. PROCEDURES: Chest tube. HOSPITAL COURSE: The patient is a pleasant middle-aged female who basically presented with respiratory failure secondary to COVID-19. She was admitted. We gave her COVID-19 protocol. She was initially admitted to the ICU with a nonrebreather, eventually had to have a chest tube placed for a pneumothorax. We did give her dexamethasone, azithromycin and Rocephin. She was also considered for plasma and remdesivir. Basically, over the past week or so, she has gotten much better. Chest tube is now out. Today, she is doing great. Heart tones are normal. Lungs are clear. We plan to discharge with close outpatient followup. DISPOSITION: Home. ACTIVITY: As tolerated. DIET: Low sodium. MEDICATIONS: Please see the MRAD. TOTAL TIME: 32 minutes. TABITHA BLACK DO DR: CODY/charlene JOB#: [id number] / [id number]
[2020-02-27 15:00] VITALS: BP 120/77
--- NOTE | 2020-02-27 17:20 | NUR ---
DISCHARGE INSTRUCTIONS GIVEN TO PATIENT AND HER DAUGHTER IN LAW (RISSA) OVER THE PHONE WHO SPEAKS FLUENT INDONESIAN, QUESTIONS AND CONCERNS ANSWERED, ALL PERSONAL BELONGINGS GATHERED BY THE PATIENT AND PLACED IN BAGS FOR DISCHARGE, RIGHT TRIPLE LUMEN SUBCLAVIAN DISCONTINUED PER THIS INSULATION HELPER, PATIENT TOLERATED WITHOUT COMPLAINTS. PERSONAL OXYGEN TANK PROVIDED BY SOCIAL WORK PLACED AT THE BEDSIDE AT THIS TIME.
--- NOTE | 2020-02-27 17:29 | NUR ---
SW following. Spoke with RN and reviewed chart. Pt to discharge home today via transport from son and dtr-in-law. Spoke with dtr-in-law ([phone]) who will stay with her family and allow pt to quarantine alone in her home per being COVID positive. Pt's dtr-in-law called [employer] and arranged to pay privately for pt to have 02. SW phoned and faxed 02 orders to [facility]. Pt sent home with a tank per approval from Venessa at [facility]. [facility] to do 02 setup in the home at 1300 and then family will come get pt for discharge at 1400. RN notified. Pt on 3l 02. LVM for [facility] Family Preservation Specialist Rosa Elena Pineda, , (fax). No further SW needs at this time. Patient's Home address: [address] [place] [id number] Addendum: 02/27/20 at 1734 by LORETTA [employer] Patient Choice of Vendor Form Completed.
--- NOTE | 2020-02-27 18:20 | NUR ---
PATIENT LEAVES THE UNIT PER W/C AND ACCOMPANIED BY THIS MANAGER PULMONARY, EMOTIONAL SUPPORT GIVEN, FOLLOW UP APPOINTMENTS ENCOURAGED.
--- NOTE | 2020-03-18 13:02 | NUR ---
[facility] Family Preservation Specialist Rosa Elena Pineda called ([phone]) to obtain discharge date.
== END 2020-02-27 18:20 | disposition home or self-care (01) | DRG 207 ==
LOC: ER 16:15 → ED HOLD 17:48 → 1 WEST ICU 18:53 → 6 SOUTH 02-08 06:36
PROVIDERS: ADMIT Internal Medicine; ATTEND Internal Medicine
PROC: 5A1955Z Respiratory Ventilation, Greater than 96 Consecutive Hours (ICD-10-PCS; principal; 2020-01-23)
PROC: 0BH17EZ Insertion of Endotracheal Airway into Trachea, Via Natural or Artificial Opening (ICD-10-PCS; 2020-01-23)
PROC: 30233K1 Transfusion of Nonautologous Frozen Plasma into Peripheral Vein, Percutaneous Approach (ICD-10-PCS; 2020-01-23)
PROC: 0W9930Z Drainage of Right Pleural Cavity with Drainage Device, Percutaneous Approach (ICD-10-PCS; 2020-02-22)
DX: U07.1 COVID-19 (principal); A41.89 Other specified sepsis; E43 Unspecified severe protein-calorie malnutrition; J12.89 Other viral pneumonia; J96.01 Acute respiratory failure with hypoxia; E87.0 Hyperosmolality and hypernatremia; G72.81 Critical illness myopathy; J93.9 Pneumothorax, unspecified; K92.2 Gastrointestinal hemorrhage, unspecified; Z68.41 Body mass index [BMI] 40.0-44.9, adult; D64.9 Anemia, unspecified; E66.01 Morbid (severe) obesity due to excess calories; G47.33 Obstructive sleep apnea (adult) (pediatric); I10 Essential (primary) hypertension; K59.00 Constipation, unspecified; R13.12 Dysphagia, oropharyngeal phase; Z88.8 Allergy status to other drugs, medicaments and biological substances; Z79.899 Other long term (current) drug therapy
CPT/HCPCS: 32557; 36415; 36600; 71045; 76815; 80048; 80053; 81025; 82728; 82805; 82962; 83615; 83735; 84100; 84132; 84443; 85007; 85025; 85027; 85379; 85384; 85520; 85610; 86140; 86850; 86900; 86901; 86927; 87641; 93005; 94002; 94003; 96365; 96375; A4215; C1729; C1892; C1894; J0330; J0456; J0696; J1100; J1200; J1644; J1650; J1940; J2060; J2250; J2704; J2920; J3010; J3490; J7030; J7042; J7050; J7060; J7120; J7512; 92526-GN; 92610-GN; 97110-GO; 97110-GP; 97116-GP; 97530-GO; 97530-GP; 97535-GO; 99285-25; G0378; P9017; U0003-CS

== ENCOUNTER → 2020-05-06 | Outpatient (CLI) | payer SELFPAY ==
--- NOTE | 2020-05-06 15:47 | RAD ---
Single view of the chest. 05/06/2020 11:30 AM Indication: Reason: SOA / Spl. Instructions: / History: Comparison: Single view chest February 17, 2020 Findings: Right subclavian central line and chest tube have been removed. Diffuse infiltrates appear somewhat improved in the interval. No pneumothorax or pleural effusion is seen. Heart size is top normal. No acute osseous changes noted in the interim. IMPRESSION: 1. Removal of right subclavian central line and chest tube. 2. Improved aeration of the lungs, with improved but persistent bilateral infiltrates Electronically signed by: Michael Echeverria MD (05/06/2020 3:45 PM) [id number]
== END ==
LOC: RAD 11:06
PROVIDERS: ATTEND Internal Medicine Critical Care Medicine
DX: R91.8 Other nonspecific abnormal finding of lung field (principal); R06.02 Shortness of breath
CPT/HCPCS: 71046